=== PATIENT | female | born 1945 | race Caucasian/White ===

== ENCOUNTER → 2017-01-01 | Outpatient (CLI) | payer BC ==
[~2017-01-01] MED LIST: AMLO-110 PO; AMOX875T PO; ASPI81TA28 PO; BACL10TA PO; BIOT10TA2 PO; CARV3.122 PO; CHOL2000 PO; CLC6 PO; CLON0.5T3 PO; CMD/25 PO; CMD3 PO; CMD5 PO; COLC1TAB25 PO; CRFUDL PO; CRG3125 PO; DEXL60CA4 PO; DULO-24 PO; FLUC100T4 PO; GABA-113 PO; HYDR25TA4 PO; HYDR25TA5 PO; IBUP-1050 PO; KLN5X PO; LISI-792 PO; LISI20TA3 PO; LRS10 PO; LSN20 PO; LSN40 PO; LVNIS100 SQ; MCTP EXT; MELA1TAB4 PO; MELA3TAB PO; MIRT15TA PO; MTR600 PO; ONDA4TAB10 SL; PANT40TA PO; PRT/40 PO; RANI150T3 PO; ROSU20TA PO; ROSU20TA22 PO; TRAZ50TA35 PO; ULT50X PO; WARF-280 PO; WARF2TAB8 PO; WARF6TAB5 PO; ZNTT/150 PO; [UNRECOGNIZED DRUG - CODE] PO
== END | disposition home or self-care (01) ==
LOC: C.PAPS 14:10
PROVIDERS: ATTEND Obstetrics & Gynecology
DX: Z12.4 Encounter for screening for malignant neoplasm of cervix (principal)

== ENCOUNTER → 2017-02-04 | Outpatient (CLI) | payer BC ==
[~2017-02-04] MED LIST changes: +CRFL PO; +IBUP-1459 PO; +LISI40TA PO; +NRV/5 PO; +PANT40TA2 PO; -PRT/40 PO; +TRAM-10 PO; +WARF-285 PO
[2017-02-04 17:27] LABS: BASO % 0.7 %; BASO ABS # 0.05 K/uL (0-0.2); COMPLETE YES; EOS % 3.5 %; HEMATOCRIT 38.2 % (37-47); IG% 0.3 %; LYMPH % 27.5 %; LYMPH ABS # 2.07 K/uL (1.2-3.4); MEAN CELL VOLUME 89.5 fL (80-100); MEAN CORPUSCULAR HEMOGLOBIN 29.3 pg (25-34); MEAN CORPUSCULAR HGB CONC 32.7 g/dl (32-36); MEAN PLATELET VOLUME 10.2 fL (7.4-10.4); MONO % 8.4 %; NEUT % 59.6 %; PLATELET COUNT 292 K/uL (130-400); RED BLOOD COUNT 4.27 M/uL (4.2-5.4); WHITE BLOOD COUNT 7.53 K/uL (4.8-10.8)
[2017-02-04 17:41] LABS: AST/SGOT 12 U/L (15-37); BLOOD UREA NITROGEN 27 mg/dl (7-18); BUN/CREATININE RATIO 27.4 (10-20); CALCIUM 8.9 mg/dl (8.5-10.1); CARBON DIOXIDE 27 mmol/L (21-32); CHLORIDE 107 mmol/L (98-107); CREATININE 0.97 mg/dl (0.60-1.20); GLUCOSE 92 mg/dl (70-99); POTASSIUM 3.5 mmol/L (3.5-5.1); SODIUM 143 mmol/L (136-145)
[2017-02-04 17:52] LABS: ALB/GLOB RATIO 0.8 (0.9-2); ALKALINE PHOSPHATASE 84 U/L (45-117); ALT/SGPT 19 U/L (12-78); CHOLESTEROL 183 mg/dl (0-200); CHOLESTEROL/HDL RATIO 2.9; HDL CHOLESTEROL 64 mg/dl; LDL CHOLESTEROL CALCULATED 96 mg/dl; TRIGLYCERIDES 116 mg/dl (0-150); VERY LOW DENSITY LIPOPROT CALC 23 mg/dl
[2017-02-05 07:21] LABS: ESTIMATED AVERAGE GLUCOSE 134 mg/dl; HA1C FLAG Normal (Normal)
== END | disposition home or self-care (01) ==
LOC: C.LABBFT 11:34
PROVIDERS: ATTEND Physician Assistant Medical
DX: E78.5 Hyperlipidemia, unspecified (principal); I10 Essential (primary) hypertension; R73.01 Impaired fasting glucose

== ENCOUNTER 2017-02-18 14:19 | Emergency (ER) | payer BC ==
[~2017-02-18] VITALS: Ht 160 cm; Wt 104.0 kg
[~2017-02-18 14:19] MED LIST changes: -AMLO-110 PO; -AMOX875T PO; -ASPI81TA28 PO; -BIOT10TA2 PO; -CHOL2000 PO; -CLC6 PO; -CMD/25 PO; -CMD3 PO; -CMD5 PO; -COLC1TAB25 PO; -CRFL PO; -CRFUDL PO; -CRG3125 PO; -FLUC100T4 PO; -HYDR25TA5 PO; -IBUP-1050 PO; -IBUP-1459 PO; -KLN5X PO; -LISI20TA3 PO; -LISI40TA PO; -LRS10 PO; -LSN20 PO; -LSN40 PO; -LVNIS100 SQ; -MCTP EXT; -MELA3TAB PO; -MIRT15TA PO; -MTR600 PO; -NRV/5 PO; -ONDA4TAB10 SL; -PANT40TA PO; -PANT40TA2 PO; -RANI150T3 PO; -ROSU20TA22 PO; -TRAM-10 PO; -TRAZ50TA35 PO; -ULT50X PO; -WARF-280 PO; -WARF-285 PO; -WARF2TAB8 PO; -WARF6TAB5 PO; -[UNRECOGNIZED DRUG - CODE] PO
[2017-02-18 14:27] VITALS: TEMP 36.9; Ht 160 cm; Wt 104.0 kg
[2017-02-18] MEDS ORDERED: SODIUM CHLORIDE 0.9% 1000ML 500 ML IV STA (14:54)
[2017-02-18] MEDS ORDERED: ONDANSETRON INJ 2 MG/ML 2 ML VIAL IV STA (14:54)
--- NOTE | 2017-02-18 14:59 | EMERGENCY ROOM VISIT NOTE ---
History Report prepared by Tristen: Rosalina Fuentes Under the Supervision of: Dr. González Stanford M.D. First contact with patient: 14:49 Chief Complaint: ABDOMINAL PAIN Stated Complaint: PAIN ON LEFT SIDE OF BELLY Nursing Triage Summary: pt to the ED with c/o abd pain left sided since friday History of Present Illness The patient is a 71 year old female who presents to the Emergency Room with complaints of intermittent left upper quadrant abdominal pain that began Friday (4 days ago). She currently rates her discomfort as an 8/10 in severity, but notes that it can be up to a 10/10 in severity. The patient states that her pain started on Friday, but worsened Friday morning. She states that her pain continued to worsen, but then began to ease up. The patient denies the pain radiating to her back. She denies any nausea, vomiting , chills, fever, urinary symptoms, diarrhea, or constipation. The patient denies ever having pain like this in the past. She notes that she has had a recent cough and increased shortness of breath. The patient denies any history of kidney stones. She notes a surgical history of a cholecystectomy and a history of diverticulosis. Source of History: patient Onset: Friday Position: abdomen (LUQ) Symptom Intensity: 8/10 Timing: intermittent Associated Symptoms: + SOB, + cough, No back pain, No chills, No diarrhea, No fevers, No nausea, No urinary symptoms, No vomiting Review of Systems See HPI for pertinent positives & negatives. A total of 10 systems reviewed and were otherwise negative. Past Medical & Surgical Medical Problems: (1) back surgery (2) Barretts esophagus (3) Endocervical polyp (4) Hypertension (5) Patellar tendonitis (6) Post-menopause bleeding Family History Diabetes mellitus FH: cancer FH: heart disease FH: lung disease Gallbladder disease Hypertension Kidney disease Kidney stones Social History Smoking Status: Never Smoker Alcohol Use: none Drug Use: none Marital Status: Housing Status: lives with family Occupation Status: retired Current/Historical Medications Scheduled Amoxicillin & Pot Clavulanate (Augmentin 875-125 mg), 875 MG PO BID Aspirin (Aspirin Ec), 81 MG PO QAM Baclofen (Lioresal), 10 MG PO QAM Carvedilol (Coreg), 3.125 MG PO BID Clonazepam (Klonopin), 0.5 MG PO HS Hydrochlorothiazide (Hctz), 25 MG PO QAM Lisinopril (Zestril), 20 MG PO QAM Melatonin (Melatonin), 1 MG PO HS Pantoprazole (Pantoprazole Sodium), 40 MG PO DAILY Ranitidine (Zantac), 150 MG PO BID Rosuvastatin Calcium (Crestor), 20 MG PO QPM Scheduled PRN Clonazepam (Klonopin), 0.25 MG PO QAM PRN for RN Allergies Coded Allergies: Niacin (Verified Allergy, Intermediate, RASH, 02/18/17) Atorvastatin (Verified Allergy, Unknown, MUSCLE ACHES, 02/18/17) Diltiazem (Verified Allergy, Unknown, HEADACHE, 02/18/17) Physical Exam Vital Signs Date Time Temp Pulse Resp B/P Pulse Ox O2 Delivery O2 Flow Rate FiO2 02/18/17 18:25 72 18 132/64 95 Room Air 02/18/17 15:43 74 111/54 96 Room Air 02/18/17 14:27 36.9 91 16 146/98 98 Room Air Physical Exam GENERAL: Patient is in no acute distress. HEENT: No acute trauma, normocephalic atraumatic, mucous membranes moist, no nasal congestion, no scleral icterus. NECK: No stridor, no adenopathy, no meningismus, trachea is midline. LUNGS: Clear to auscultation bilaterally, no wheeze, no rhonchi, breath sounds equal. HEART: 4/6 systolic murmur with a regular rate and rhythm. ABDOMEN: Moderately tender to the mid left abdomen. Soft, bowel sounds positive , no hernias, no peritonitis. EXTREMITIES: No cyanosis or edema, full range of motion of all the joints without pain or difficulty, no signs for acute trauma. NEUROLOGIC: Oriented x 3, no acute motor or sensory deficits, no focal weakness. SKIN: No rash, no jaundice, no diaphoresis. Medical Decision & Procedures ER Provider Diagnostic Interpretation: X ray results and stated below per my interpretation and radiologist interpretation. Other radiology results and stated below per my review and radiologist interpretation: CHEST ONE VIEW PORTABLE CLINICAL HISTORY: Left-sided abdominal pain COMPARISON STUDY: 02/17/2015 FINDINGS: The cardiac and sternal contours remain stable. There is no failure. There is no focal pulmonary consolidation. There are no pleural effusions. There is a linear atelectasis/scarring at the left lung base. There is no free intraperitoneal air.[ IMPRESSION: No active disease in the chest. Electronically signed by: Noel Mcintosh M.D. 02/18/2017 3:36 PM Dictated Date/Time: 02/18/2017 3:[address] SCAN OF THE ABDOMEN AND PELVIS WITH IV CONTRAST CLINICAL HISTORY: Left lower quadrant abdominal pain. COMPARISON STUDY: Abdominal CT dated 06/22/2015. TECHNIQUE: Following the IV administration of 92 cc of Optiray 320, CT scan of the abdomen and pelvis is performed from the lung bases to the proximal femora. Images are reviewed in the axial, sagittal, and coronal planes. IV contrast was administered without complication. Automated dose control exposure was utilized. The examination is degraded by large body habitus, and by streak artifact from the body wall abutting the CT gantry. CT DOSE: 1302.11 mGy.cm FINDINGS: Lung bases: The heart is normal in size and without pericardial effusion. The coronary arteries, aortic valve leaflets, and mitral annulus are calcified. Linear atelectasis is present at both lung bases. No airspace consolidation typical for pneumonia or pleural effusion is identified. A small calcified granuloma is present in the right middle lobe. A fat-containing Bochdalek hernia is seen at the right lung base. A small hiatal hernia is noted. Liver: The contrast-enhanced liver is normal in size, contour, and attenuation. There is [id number] central intrahepatic biliary ductal dilatation, likely related to previous cholecystectomy. The hepatic veins and portal veins are patent. Gallbladder: Surgically absent. Spleen: Normal in size and attenuation. Pancreas: Moderately atrophic and grossly unremarkable. Adrenal glands: Unremarkable. Kidneys: The contrast enhanced kidneys demonstrate mild cortical atrophy and are without hydronephrosis. The kidneys enhance symmetrically. Abdominal vasculature: The abdominal aorta is normal in course and caliber noting mild to moderate atherosclerotic calcification. Bowel: The small bowel and colon are normal in course and caliber. There is a small duodenal diverticulum. There is moderate diverticulosis of the left colon. There is mild colonic wall thickening with pericolonic inflammation and trace fluid seen involving the distal descending colon on axial image #305. The appearance is consistent with acute diverticulitis. There is no evidence of diverticular abscess. The appendix is not identified. Peritoneum: There is no intraperitoneal free air or abdominal ascites. Lymphadenopathy: None. Pelvic viscera: The bladder, uterus, and adnexa are normal as imaged. Skeletal structures: The skeletal structures are osteopenic. There is mild lumbosacral spondylosis. Sclerotic change is noted in the sacroiliac joints. No lytic or blastic lesions are seen. IMPRESSION: Findings are consistent with mild acute diverticulitis involving the distal descending colon. There is no CT evidence of abscess or intraperitoneal free air. Electronically signed by: González Ross M.D. 02/18/2017 5:37 PM Dictated Date/Time: 02/18/2017 5:31 PM Laboratory Results 02/18/17 15:00 Red Blood Count 4.51, Mean Corpuscular Volume 91.1, Mean Corpuscular Hemoglobin 29.5, Mean Corpuscular Hemoglobin Concent 32.4, Mean Platelet Volume 9.5, Neutrophils (%) (Auto) 67.6, Lymphocytes (%) (Auto) 18.6, Monocytes (%) (Auto) 10.7, Eosinophils (%) (Auto) 2.6, Basophils (%) (Auto) 0.3, Neutrophils # (Auto ) 6.78, Lymphocytes # (Auto) 1.86, Monocytes # (Auto) 1.07, Eosinophils # (Auto ) 0.26, Basophils # (Auto) 0.03 02/18/17 15:00 Test 02/18/17 15:00 02/18/17 15:44 White Blood Count 10.02 K/uL (4.8-10.8) Red Blood Count 4.51 M/uL (4.2-5.4) Hemoglobin 13.3 g/dL (12.0-16.0) Hematocrit 41.1 % (37-47) Mean Corpuscular Volume 91.1 fL (80-100) Mean Corpuscular Hemoglobin 29.5 pg (25-34) Mean Corpuscular Hemoglobin Concent 32.4 g/dl (32-36) Platelet Count 249 K/uL (130-400) Mean Platelet Volume 9.5 fL (7.4-10.4) Neutrophils (%) (Auto) 67.6 % Lymphocytes (%) (Auto) 18.6 % Monocytes (%) (Auto) 10.7 % Eosinophils (%) (Auto) 2.6 % Basophils (%) (Auto) 0.3 % Neutrophils # (Auto) 6.78 K/uL (1.4-6.5) Lymphocytes # (Auto) 1.86 K/uL (1.2-3.4) Monocytes # (Auto) 1.07 K/uL (0.11-0.59) Eosinophils # (Auto) 0.26 K/uL (0-0.5) Basophils # (Auto) 0.03 K/uL (0-0.2) RDW Standard Deviation 45.1 fL (36.4-46.3) RDW Coefficient of Variation 13.6 % (11.5-14.5) Immature Granulocyte % (Auto) 0.2 % Immature Granulocyte # (Auto) 0.02 K/uL (0.00-0.02) Anion Gap 6.0 mmol/L (3-11) Est Creatinine Clear Calc Drug Dose 63.5 ml/min Estimated GFR () 70.3 Estimated GFR (Non- 60.7 BUN/Creatinine Ratio 18.5 (10-20) Calcium Level 9.4 mg/dl (8.5-10.1) Total Bilirubin 0.5 mg/dl (0.2-1) Aspartate Amino Transf (AST/SGOT) 13 U/L (15-37) Alanine Aminotransferase (ALT/SGPT) 18 U/L (12-78) Alkaline Phosphatase 117 U/L (45-117) Total Protein 8.6 gm/dl (6.4-8.2) Albumin 3.7 gm/dl (3.4-5.0) Globulin 4.9 gm/dl (2.5-4.0) Albumin/Globulin Ratio 0.8 (0.9-2) Lipase 166 U/L (73-393) Urine Color YELLOW Urine Appearance CLEAR (CLEAR) Urine pH 6.0 (4.5-7.5) Urine Specific Rayne 1.019 (1.000-1.030) Urine Protein NEG (NEG) Urine Glucose (UA) NEG (NEG) Urine Ketones NEG (NEG) Urine Occult Blood TRACE (NEG) Urine Nitrite NEG (NEG) Urine Bilirubin NEG (NEG) Urine Urobilinogen NEG (NEG) Urine Leukocyte Esterase TRACE (NEG) Urine WBC (Auto) 1-5 /hpf (0-5) Urine RBC (Auto) 5-10 /hpf (0-4) Urine Hyaline Casts (Auto) 0 /lpf (0-5) Urine Epithelial Cells (Auto) 5-10 /lpf (0-5) Urine Bacteria (Auto) NEG (NEG) Laboratory results reviewed by me. Medications Administered Medications (Trade) Dose Ordered Sig/Aurora Route Start Time Stop Time Status Last Admin Dose Admin Sodium Chloride (Nss 1000ml) 500 ml @ 999 mls/hr Q31M STAT IV 02/18/17 14:54 02/18/17 15:24 DC 02/18/17 15:39 999 MLS/HR Ondansetron HCl (Zofran Inj) 4 mg NOW STAT IV 02/18/17 14:54 02/18/17 14:57 DC 02/18/17 15:39 4 MG Morphine Sulfate (MoRPHine SULFATE INJ) 4 mg Q30M PRN IV 02/18/17 15:00 02/18/17 18:44 DC 02/18/17 15:40 4 MG Amoxicillin/ Clavulanate Potassium (Augmentin Tab) 875 mg ONE ONCE PO 02/18/17 18:15 02/18/17 18:16 DC 02/18/17 18:24 875 MG ED Course 1449: The patient was evaluated in room C5. A complete history and physical exam was performed. 1454: Ordered Zofran Inj 4 mg IV, Sodium Chloride 500 ml @ 999 mls/hr IV. 1500: Ordered Morphine Sulfate 4 mg IV. 1759: I reevaluated the patient and she is resting comfortably. I discussed the exam findings with her and I discussed the treatment plan. She verbalized complete understanding and agreement. She is ready to go home once she receives her antibiotics. 1815: Ordered Augmentin Tab 875 mg PO. Medical Decision The patient is a 71 year old female who presents to the ED with complaints of abdominal pain. Differential diagnoses considered include UTI, renal colic, pyelonephritis, abscess, diverticulitis, appendicitis, pancreatitis, hernia. There is no leukocytosis or concerning anemia. No significant electrolyte abnormality, kidney failure, hepatitis or pancreatitis. Urinalysis does not show evidence for infection. Chest x-ray shows no pneumonia, free air or mediastinal widening. Abdominal and pelvis CT does show a mild case of diverticulitis, there was no abscess, no acute surgical process seen. The patient received IV saline, IV Zofran, IV morphine. She received a dose of oral Augmentin. She feels improved. The patient has acute diverticulitis. She is stable for discharge on outpatient antibiotics. [id number] pain meds for pain control. Rest and hydration were encouraged. She can follow with her doctor for further workup if needed. She was encouraged to return here for worsening symptoms or lack of improvement. Impression Primary Impression: Acute diverticulitis Scribe Attestation The scribe's documentation has been prepared under my direction and personally reviewed by me in its entirety. I confirm that the note above accurately reflects all work, treatment, procedures, and medical decision making performed by me. Departure Information Dispostion Home / Self-Care Prescriptions Amoxicillin & Pot Clavulanate (Augmentin 875-125 mg) 1 Tab Tab 875 MG PO BID for 10 Days, #20 TAB Prov: González Stanford M.D. 02/18/17 Referrals Renzo Barker M.D. (PCP) Forms HOME CARE DOCUMENTATION FORM, IMPORTANT VISIT INFORMATION Patient Instructions My [facility] Additional Instructions augmentin 2x per day for 10 days motrin and or tylenol for pain bland diet see talon neff friday return for worsening symptoms or lack of improvement heat to the sore area may help
[2017-02-18] MEDS ORDERED: OPTIRAY 320 IV PRN (15:00)
[2017-02-18] MEDS ORDERED: MoRPHine SULFATE 4 MG/ML 1 ML CARP\\VIAL IV PRN (15:00)
[2017-02-18] MEDS ORDERED: PANT40TA2 PO (15:02)
[2017-02-18 15:18] LABS: BASO % 0.3 %; BASO ABS # 0.03 K/uL (0-0.2); COMPLETE YES; EOS % 2.6 %; HEMATOCRIT 41.1 % (37-47); IG% 0.2 %; LYMPH % 18.6 %; LYMPH ABS # 1.86 K/uL (1.2-3.4); MEAN CELL VOLUME 91.1 fL (80-100); MEAN CORPUSCULAR HEMOGLOBIN 29.5 pg (25-34); MEAN CORPUSCULAR HGB CONC 32.4 g/dl (32-36); MEAN PLATELET VOLUME 9.5 fL (7.4-10.4); MONO % 10.7 %; NEUT % 67.6 %; PLATELET COUNT 249 K/uL (130-400); RED BLOOD COUNT 4.51 M/uL (4.2-5.4); WHITE BLOOD COUNT 10.02 K/uL (4.8-10.8)
[2017-02-18 15:38] LABS: BUN/CREATININE RATIO 18.5 (10-20); CALCIUM 9.4 mg/dl (8.5-10.1); CREATININE 0.95 mg/dl (0.60-1.20); POTASSIUM 3.8 mmol/L (3.5-5.1)
--- NOTE | 2017-02-18 15:38 | DIAGNOSTIC IMAGING REPORT ---
CHEST ONE VIEW PORTABLE CLINICAL HISTORY: Left-sided abdominal pain COMPARISON STUDY: 02/17/2015 FINDINGS: The cardiac and sternal contours remain stable. There is no failure. There is no focal pulmonary consolidation. There are no pleural effusions. There is a linear atelectasis/scarring at the left lung base. There is no free intraperitoneal air.[ IMPRESSION: No active disease in the chest. Electronically signed by: Noel Mcintosh M.D. 02/18/2017 3:36 PM Dictated Date/Time: 02/18/2017 3:35 PM
[2017-02-18 15:45] LABS: ALB/GLOB RATIO 0.8 (0.9-2)
[2017-02-18 16:03] LABS: URINE APPEARANCE CLEAR (CLEAR); URINE BILIRUBIN NEG (NEG); URINE COLOR YELLOW; URINE NITRITE NEG (NEG); URINE SPECIFIC GRAVITY 1.019 (1.000-1.030); UROBILINOGEN NEG (NEG); ZZUR CULT IF INDIC CLEAN CATCH NO
[2017-02-18 16:12] LABS: MANUAL MICROSCOPIC REQUIRED? NO; REVIEW REQ? NO
--- NOTE | 2017-02-18 17:39 | DIAGNOSTIC IMAGING REPORT ---
CT SCAN OF THE ABDOMEN AND PELVIS WITH IV CONTRAST CLINICAL HISTORY: Left lower quadrant abdominal pain. COMPARISON STUDY: Abdominal CT dated 06/22/2015. TECHNIQUE: Following the IV administration of 92 cc of Optiray 320, CT scan of the abdomen and pelvis is performed from the lung bases to the proximal femora. Images are reviewed in the axial, sagittal, and coronal planes. IV contrast was administered without complication. Automated dose control exposure was utilized. The examination is degraded by large body habitus, and by streak artifact from the body wall abutting the CT gantry. CT DOSE: 1302.11 mGy.cm FINDINGS: Lung bases: The heart is normal in size and without pericardial effusion. The coronary arteries, aortic valve leaflets, and mitral annulus are calcified. Linear atelectasis is present at both lung bases. No airspace consolidation typical for pneumonia or pleural effusion is identified. A small calcified granuloma is present in the right middle lobe. A fat-containing Bochdalek hernia is seen at the right lung base. A small hiatal hernia is noted. Liver: The contrast-enhanced liver is normal in size, contour, and attenuation. There is [id number] central intrahepatic biliary ductal dilatation, likely related to previous cholecystectomy. The hepatic veins and portal veins are patent. Gallbladder: Surgically absent. Spleen: Normal in size and attenuation. Pancreas: Moderately atrophic and grossly unremarkable. Adrenal glands: Unremarkable. Kidneys: The contrast enhanced kidneys demonstrate mild cortical atrophy and are without hydronephrosis. The kidneys enhance symmetrically. Abdominal vasculature: The abdominal aorta is normal in course and caliber noting mild to moderate atherosclerotic calcification. Bowel: The small bowel and colon are normal in course and caliber. There is a small duodenal diverticulum. There is moderate diverticulosis of the left colon. There is mild colonic wall thickening with pericolonic inflammation and trace fluid seen involving the distal descending colon on axial image #305. The appearance is consistent with acute diverticulitis. There is no evidence of diverticular abscess. The appendix is not identified. Peritoneum: There is no intraperitoneal free air or abdominal ascites. Lymphadenopathy: None. Pelvic viscera: The bladder, uterus, and adnexa are normal as imaged. Skeletal structures: The skeletal structures are osteopenic. There is mild lumbosacral spondylosis. Sclerotic change is noted in the sacroiliac joints. No lytic or blastic lesions are seen. IMPRESSION: Findings are consistent with mild acute diverticulitis involving the distal descending colon. There is no CT evidence of abscess or intraperitoneal free air. Electronically signed by: González Ross M.D. 02/18/2017 5:37 PM Dictated Date/Time: 02/18/2017 5:31 PM
[2017-02-18] MEDS ORDERED: AMOX875T PO (18:09)
[2017-02-18] MEDS ORDERED: AMOXICILLIN/CLAVULANATE TAB 875 MG TAB PO ONE (18:15)
[2017-02-18 18:25] VITALS: BP 132/64; PULSE 72; O2SAT 95
[2017-03-27] MEDS ORDERED: [UNRECOGNIZED DRUG - CODE] PO (14:40)
[2017-03-27] MEDS ORDERED: BIOT10TA2 PO (14:40)
[2017-05-15] MEDS ORDERED: LVNIS100 SQ (10:50)
[2017-05-15] MEDS ORDERED: CMD5 PO (10:50)
[2017-05-30] MEDS ORDERED: IBUP-1050 PO (14:12)
[2017-05-30] MEDS ORDERED: CLC6 PO (14:12)
[2017-06-01] MEDS ORDERED: ASPI81TA28 PO (10:01)
[2017-06-01] MEDS ORDERED: CLON0.5T3 PO (11:51)
[2017-06-01] MEDS ORDERED: ROSU20TA22 PO (13:43)
[2017-06-01] MEDS ORDERED: CHOL2000 PO (14:40)
[2017-06-01] MEDS ORDERED: PANT40TA2 PO (22:13)
[2017-06-19] MEDS ORDERED: MTR600 PO (16:09)
[2017-06-19] MEDS ORDERED: CRFUDL PO (16:09)
[2017-06-19] MEDS ORDERED: LSN20 PO (16:09)
[2017-06-19] MEDS ORDERED: CMD3 PO (16:09)
[2017-06-19] MEDS ORDERED: MCTP EXT (16:09)
[2017-07-11] MEDS ORDERED: AMLO-110 PO (10:08)
[2017-07-11] MEDS ORDERED: ULT50X PO (10:08)
[2017-07-11] MEDS ORDERED: IBUP-1050 PO (10:08)
[2017-07-11] MEDS ORDERED: LSN40 PO (10:08)
== END 2017-02-18 18:35 | disposition home or self-care (01) ==
LOC: C.EDB 14:28 → C.EDC 18:35
DX: K57.92 Diverticulitis of intestine, part unspecified, without perforation or abscess without bleeding (principal); I10 Essential (primary) hypertension; K22.70 Barrett's esophagus without dysplasia; Z79.82 Long term (current) use of aspirin; Z79.899 Other long term (current) drug therapy; Z88.8 Allergy status to other drugs, medicaments and biological substances; Z83.3 Family history of diabetes mellitus; Z80.9 Family history of malignant neoplasm, unspecified; Z82.49 Family history of ischemic heart disease and other diseases of the circulatory system; Z83.79 Family history of other diseases of the digestive system; Z84.1 Family history of disorders of kidney and ureter

== ENCOUNTER → 2017-03-24 | Outpatient (CLI) | payer BC ==
[~2017-03-24] MED LIST changes: +AMLO-110 PO; +ASPI81TA28 PO; +BIOT10TA2 PO; +CHOL2000 PO; +CLC6 PO; +CMD/25 PO; +CMD3 PO; +CMD5 PO; +COLC1TAB25 PO; +CRFL PO; +CRFUDL PO; +CRG3125 PO; -DEXL60CA4 PO; -DULO-24 PO; +FLUC100T4 PO; -GABA-113 PO; +HYDR25TA5 PO; +IBUP-1050 PO; +IBUP-1459 PO; +KLN5X PO; +LISI20TA3 PO; +LISI40TA PO; +LRS10 PO; +LSN20 PO; +LSN40 PO; +LVNIS100 SQ; +MCTP EXT; +MELA3TAB PO; +MIRT15TA PO; +MTR600 PO; +NRV/5 PO; +ONDA4TAB10 SL; +PANT40TA PO; +PANT40TA2 PO; +RANI150T3 PO; +ROSU20TA22 PO; +TRAM-10 PO; +TRAZ50TA35 PO; +ULT50X PO; +WARF-280 PO; +WARF-285 PO; +WARF2TAB8 PO; +WARF6TAB5 PO; +[UNRECOGNIZED DRUG - CODE] PO
[2017-03-24 12:21] LABS: HEMATOCRIT 38.3 % (37-47); MEAN CELL VOLUME 91.8 fL (80-100); MEAN CORPUSCULAR HEMOGLOBIN 29.5 pg (25-34); MEAN CORPUSCULAR HGB CONC 32.1 g/dl (32-36); MEAN PLATELET VOLUME 10.2 fL (7.4-10.4); PLATELET COUNT 229 K/uL (130-400); RED BLOOD COUNT 4.17 M/uL (4.2-5.4); WHITE BLOOD COUNT 5.65 K/uL (4.8-10.8)
[2017-03-24 12:33] LABS: PROTHROMBIN TIME (PATIENT) 10.2 SECONDS (9.0-12.0)
[2017-03-24 12:38] LABS: BLOOD UREA NITROGEN 21 mg/dl (7-18); BUN/CREATININE RATIO 22.9 (10-20); CARBON DIOXIDE 28 mmol/L (21-32); CHLORIDE 108 mmol/L (98-107); GLUCOSE 102 mg/dl (70-99); SODIUM 142 mmol/L (136-145)
[2017-03-24 12:51] LABS: CALCIUM 9.3 mg/dl (8.5-10.1)
== END | disposition home or self-care (01) ==
LOC: C.LABBFT 09:57
PROVIDERS: ATTEND Internal Medicine Interventional Cardiology
DX: Z01.810 Encounter for preprocedural cardiovascular examination (principal)

== ENCOUNTER → 2017-03-28 | Day surgery (SDC) | payer BC ==
[~2017-03-28] VITALS: Ht 160 cm; Wt 105.0 kg
[~2017-03-28] MED LIST changes: +FENTANYL CITRATE INJ 50 MCG/1 ML 2 ML VIAL ONE; +HEPARIN SOD (PORCINE) 1000 UNIT/ML 10 ML VIAL ONE; -MELA1TAB4 PO; +MIDAZOLAM HCL 1 MG/ML 2ML VIAL ONE; +NITROGLYCERIN/D5W 100MCG/ML 20ML SYR ONE; +NiCARDipine HCL INJ 2.5 MG/ML 10 ML AMP ONE
[2017-03-28 09:45] VITALS: Ht 160 cm; Wt 105.0 kg
[2017-03-28 10:03] VITALS: BP 110/65; PULSE 68; TEMP 36.4; O2SAT 96
--- NOTE | 2017-03-28 11:49 | History & Physical Bridge Note ---
H&P Re-Evaluation Bridge Note: I have examined the patient, reviewed the History & Physical and in the interval since the performance of the History & Physical I have noted the following changes of clinical significance: No changes noted
--- NOTE | 2017-03-28 11:50 | Procedure Note ---
Pre-Mod Sedation Assessment General Date of Moderate Sedation: March 28, 2017. Vital Signs: Vital Signs Past 12 Hours Date Time Temp Pulse Resp B/P Pulse Ox O2 Delivery O2 Flow Rate FiO2 03/28/17 11:39 69 18 132/81 95 Room Air 03/28/17 10:03 36.4 68 16 110/65 96 Room Air Review Cardiovascular: regular rate, rhythm, no edema, + systolic murmur Abdomen: normal bowel sounds, non tender Lungs: chest non-tender, normal breath sounds Pre-Sedation Airway Assessment Oral Cavity: WNL Able to Visualize Vocal Cords: No Short Thick Neck: Yes Hx of Sleep Apnea: Yes Smoking Status: Former Smoker Mallampati Classification: Class III ASA Classification: Class II Procedure Planning Contraindications-for Mod Sed: None Yes Notes The planned sedation has been discussed with the patient and consent obtained. I have identified the patient, determined the appropriateness of sedation and have assessed the patient immediately prior to the procedure. All medicine(s) and interventions are by my order.
--- NOTE | 2017-03-28 11:51 | Procedure Note ---
Post-Mod Sedation Assessment General Date of Moderate Sedation March 28, 2017. Vital Signs: Vital Signs Past 12 Hours Date Time Temp Pulse Resp B/P Pulse Ox O2 Delivery O2 Flow Rate FiO2 03/28/17 11:39 69 18 132/81 95 Room Air 03/28/17 10:03 36.4 68 16 110/65 96 Room Air Review - Discharge Criteria Vital Signs Stable: Yes Alert/Oriented/Conversant: Yes Returned to Baseline Mental St: Yes Nausea Absent/Minimal: Yes Pain/Discomfort/Absent/Minimal: Yes Normal/Baseline Respirations: Yes Active Bleeding?: No Pt Received D/C Instructions: N/A Prescriptions Given: None Specific Proced. D/C Criteria Distal Pulses Present (Cardiac: Yes Groin site assessed-Card Cath: N/A Voided Prior To Discharge: N/A Discharged Patients Adult Escort/Transportation: Yes
[2017-03-28 11:55] LABS: ISTAT ARTERIAL BLOOD GAS HCO3 23 meq/L (19-24); ISTAT ARTERIAL BLOOD GAS HCO3 25 meq/L (19-24); ISTAT ARTERIAL BLOOD GAS PCO2 36 mmHg (35-46); ISTAT ARTERIAL BLOOD GAS PCO2 42 mmHg (35-46); ISTAT ARTERIAL BLOOD GAS PO2 34 mmHg (80-95); ISTAT ARTERIAL BLOOD GAS PO2 62 mmHg (80-95); ISTAT ARTERIAL BLOOD GAS pH 7.39 (7.35-7.45); ISTAT ARTERIAL BLOOD GAS pH 7.42 (7.35-7.45); ISTAT CARBON DIOXIDE 24 mEq/l (24-31); ISTAT CARBON DIOXIDE 27 mEq/l (24-31)
--- NOTE | 2017-03-28 12:05 | Cardiac Catheterization ---
Procedure Note Procedure Date March 28, 2017. Pre-Procedure Diagnosis Valvular Disease AUC Score 7 Post-Procedure Diagnosis Mild CAD, Normal Intracardiac Pressures Procedure(s) Performed Coronary Angiography, Right Heart Cath Transit Planning Manager Dr. Fuentes Cnc Wood Lathe Operator(s) Johnathan Estimated Blood Loss Medication(s) Fentanyl, Heparin, Nitroglycerin, Versed, Lidocaine 1% Summary of Findings Indication: Severe aortic stenosis Access: 6Fr Slender Right Radial Artery, 6Fr slender right antecubital vein Catheters: 6Fr Juan lal Findings: LM - Luminal irregularities LAD - Moderate caliber vessel, 20-30% stenosis in mid segment after take-off of 2nd diagonal, distal luminal irregularities. - moderate caliber 2nd diagonal with 20-30% ostial stenosis Circumflex - Large caliber vessel, luminal irregularities distally and in OM1 and OM2 RCA - Dominant, luminal irregularities. RA 9 RV 35/11 PA 37/19 (27) PCW 15 AoSat 92 PaSat 65 TCO/CI 5.5/2.7 ANANYA/CI 5.7/2.8 Arterial Closure: TR Band Summary: 1. Mild non-obstructive coronary artery disease 2. Normal cardiac output and left sided filling pressures. 3. Borderline PH Recommendations: Follow-up with CT surgery at [facility] for AVR evaluation. Hemodynamics Rest Ao: 151/81/110 Final Ao: 148/74/106 LV: -- Recommendations valve replacement Specimens None Radiation Exposure (mGy) 343 Contrast (mls) 60 Visipaque Fluids (cc crystalloids) 71 Drains None Anesthesia Moderate (start 11:10 - 11:39) Procedural Complication(s) None Disposition Nurseryman Assistant Holding/Recovery ACC Data Cardiac Status Clinical evaluation leading to the procedure CAD Presntation: Sx unlikely to be ischemic Anginal Classification: CCS II Heart Failure: No, NYHA Class: CCS I Cardiogenic Shock w/in 24Hrs: No Cardiac Arrest w/in 24Hrs: No Imaging studies past 6 months: Yes Stress studies past 6 months: No Standard Exercise Stress Test: No Stress Echocardiogram: No Stress Testing w/SPECT MPI: No Cardiac CTA: No Coronary Anatomy Dominant: Right Left Main (% Stenosis): Normal LAD (% Stenosis): Mid (20-30) D2 (% Stenosis): Ostial (20-30) Circumflex (% Stenosis): Normal RCA (% Stenosis): Normal Diagnostic Physician's Name: Renzo Fuentes MD Status: Elective Closure Device Percutaneous Entry Location: Radial Closure Device: Radial Band Recommendations: valve replacement Intraprocedure Events Significant Dissection: No Perforation: No
--- NOTE | 2017-03-28 12:10 | Discharge Instructions ---
Discharge Instructions Procedure Procedure Date: March 28, 2017. Reason for Visit: Dr Fuentes To Do Aortic Valve Replacement. Discharge Discharge Date: March 28, 2017. Discharge Diagnosis: Severe aortic stenosis Last Recorded Wt (Kilograms): 105 Anesthesia Post Anesthesia Instructions: If you have had General Anesthesia or IV Sedation: * Do not drive today. * Resume driving when surgeon permits. * Do not make important decisions or sign legal documents today. * Call surgeon for: 1. Temperature elevations greater than 101 degrees F. 2. Uncontrollable pain. 3. Excessive bleeding. 4. Persistent nausea and vomiting. 5. Medication intolerance (nausea, vomiting or rash). * For nausea and vomiting use only clear liquids such as: tea, soda, bouillon until nausea subsides, then gradually increase diet as tolerated. * If you have any concerns or questions, call your surgeon's office. If physician is unavailable and it is an emergency, call 911 or go to the nearest emergency room. Instructions Activity Recommendations: limitations as noted below Recommended Home Diet: resume previous diet Allergies: Coded Allergies: Niacin (Verified Allergy, Intermediate, RASH, 02/18/17) Atorvastatin (Verified Allergy, Unknown, MUSCLE ACHES, 02/18/17) Diltiazem (Verified Allergy, Unknown, HEADACHE, 02/18/17) Follow Up Additional Instructions: ACTIVITY RECOMMENDATIONS: It is common to feel weak and fatigue for a few days. * Do not drive or operate any motorized equipment for the next 2 days. * Limit stair usage (2 or 3 trips a day only) for the next 2 days. * Do not lift anything heavier than 10 pounds for the next three days. * Do not engage in vigorous exercise or any sports for the next five days. * You may shower the day after your procedure, but do not immerse the area for three days. Cleanse the site gently with soap and water. SPECIAL CARE INSTRUCTIONS: * You may replace the pressure dressing or band-aid the morning after the procedure. * After your procedure, it is normal to have a small bruise or small lump at the site. Examine your site daily for any change in the bruise or lump, redness, swelling, drainage or numbness. Notify your doctor if any change. BLEEDING: * If there is a small amount of bleeding at the site, lie down and apply firm pressure with a clean cloth for ten minutes. When the bleeding stops, lie quietly keeping the procedure limb straight for six hours. Notify your doctor as soon as possible. * If the bleeding does not stop after ten minutes or if there is a large amount of bleeding or spurting, call 911 immediately. Continue to lie down and hold firm pressure until help arrives. SKIN IRRITATION: * You may experience some redness and/or swelling in the area where radiation was administered. If any skin irritation occurs, please contact your family physician. FOLLOW UP VISIT: Keep any scheduled doctor appointments. Follow-up with: Follow up with cardiothoracic surgery at [facility] Recommendations: Call your doctor if: * Temperature above 101 degrees * Pain not relieved by pain medicine ordered * There is increased drainage or redness from any incision * You have any unanswered questions or concerns. Your Doctors Instructions noted above were prepared by provider Mayo Fuentes. Patient Signature Section: Patient Instructions Signature Page Lidya Madsen Patient (or Guardian) Signature/Date: I have read and understand the instructions given to me by my caregivers. Caregiver/RN/Doctor Signature/Date: The above-named patient and/or guardian has received patient instructions on this date. + Original Patient Signature Page (only) stays with chart. Please make copy for patient.
[2017-03-28 13:45] VITALS: BP 114/68; PULSE 64; O2SAT 95
== END | disposition home or self-care (01) ==
LOC: C.CATH 09:38
PROVIDERS: ATTEND Internal Medicine Interventional Cardiology
DX: I35.0 Nonrheumatic aortic (valve) stenosis (principal); I10 Essential (primary) hypertension; E78.5 Hyperlipidemia, unspecified; E66.9 Obesity, unspecified; Z86.711 Personal history of pulmonary embolism; M19.90 Unspecified osteoarthritis, unspecified site; K21.9 Gastro-esophageal reflux disease without esophagitis; F41.9 Anxiety disorder, unspecified; Z87.81 Personal history of (healed) traumatic fracture; Z85.42 Personal history of malignant neoplasm of other parts of uterus; E78.00 Pure hypercholesterolemia, unspecified; K76.0 Fatty (change of) liver, not elsewhere classified; K22.70 Barrett's esophagus without dysplasia

== ENCOUNTER → 2017-04-17 | Outpatient (CLI) | payer BC ==
[~2017-04-17] MED LIST changes: -BIOT10TA2 PO; -FENTANYL CITRATE INJ 50 MCG/1 ML 2 ML VIAL ONE; -HEPARIN SOD (PORCINE) 1000 UNIT/ML 10 ML VIAL ONE; -MIDAZOLAM HCL 1 MG/ML 2ML VIAL ONE; -NITROGLYCERIN/D5W 100MCG/ML 20ML SYR ONE; -NiCARDipine HCL INJ 2.5 MG/ML 10 ML AMP ONE; -ROSU20TA PO; -ZNTT/150 PO
--- NOTE | 2017-04-17 10:59 | DIAGNOSTIC IMAGING REPORT ---
CHEST 2 VIEWS ROUTINE CLINICAL HISTORY: R06.02 Shortness of breath dyspnea COMPARISON STUDY: 02/18/2017 FINDINGS: Interval development of right pleural effusion. Round atelectatic change left base. Focal subsegmental scarring right upper lung. Prior aortic valve replacement . IMPRESSION: 1. Small right pleural effusion with scattered atelectatic changes throughout both hemithoraces. Electronically signed by: Tim Siegel M.D. 04/17/2017 10:58 AM Dictated Date/Time: 04/17/2017 10:55 AM
== END | disposition home or self-care (01) ==
LOC: C.RAD 10:33
PROVIDERS: ATTEND Internal Medicine Interventional Cardiology
DX: R06.02 Shortness of breath (principal); J90 Pleural effusion, not elsewhere classified; R91.8 Other nonspecific abnormal finding of lung field

== ENCOUNTER 2017-05-11 13:23 | Inpatient (IN) | payer BC, OTHER ==
[~2017-05-11] VITALS: Ht 160 cm; Wt 102.1 kg
[~2017-05-11 13:23] MED LIST changes: -AMLO-110 PO; -ASPI81TA28 PO; -CHOL2000 PO; -CLC6 PO; -CMD/25 PO; -CMD3 PO; -CMD5 PO; -COLC1TAB25 PO; -CRFL PO; -CRFUDL PO; -CRG3125 PO; -FLUC100T4 PO; -HYDR25TA5 PO; -IBUP-1050 PO; -IBUP-1459 PO; -KLN5X PO; -LISI20TA3 PO; -LISI40TA PO; -LRS10 PO; -LSN20 PO; -LSN40 PO; -LVNIS100 SQ; -MCTP EXT; -MELA3TAB PO; -MIRT15TA PO; -MTR600 PO; -NRV/5 PO; -ONDA4TAB10 SL; -PANT40TA PO; -PANT40TA2 PO; +PRT/40 PO; -RANI150T3 PO; -ROSU20TA22 PO; -TRAM-10 PO; -TRAZ50TA35 PO; -ULT50X PO; -WARF-280 PO; -WARF-285 PO; -WARF2TAB8 PO; -WARF6TAB5 PO
[2017-05-11 13:50] LABS: HEMATOCRIT 32.8 % (37-47); MEAN CELL VOLUME 89.6 fL (80-100); MEAN CORPUSCULAR HEMOGLOBIN 28.7 pg (25-34); MEAN PLATELET VOLUME 8.7 fL (7.4-10.4); PLATELET COUNT 284 K/uL (130-400); RED BLOOD COUNT 3.66 M/uL (4.2-5.4)
--- NOTE | 2017-05-11 13:55 | DIAGNOSTIC IMAGING REPORT ---
SINGLE VIEW CHEST CLINICAL HISTORY: Fever. FINDINGS: An AP, portable, upright chest radiograph is compared to study dated 04/17/2017. Correlation is made with chest CT dated 10/11/2013. The examination is degraded by portable technique and patient rotation. The heart is top normal for projection and there is atherosclerotic calcification of the thoracic aorta. The pulmonary vasculature is noncongested. There is chronic elevation of the right hemidiaphragm. Airspace consolidation is noted at the right lung base. A small right pleural effusion is noted. Left lung is grossly clear. No pneumothorax is seen. The skeletal structures are osteopenic. The bony thorax is grossly intact. Degenerative change is noted in the thoracic spine. IMPRESSION: 1. There is airspace consolidation at the right lung base with a small right pleural effusion. Correlate clinically for evidence of pneumonia. Radiographic follow-up to resolution is recommended. 2. The left lung appears clear. Electronically signed by: González Ross M.D. 05/11/2017 1:54 PM Dictated Date/Time: 05/11/2017 1:52 PM
[2017-05-11 14:00] LABS: INR 1.1 (0.9-1.1); PARTIAL THROMBOPLASTIN RATIO 1.1; PROTHROMBIN TIME (PATIENT) 11.4 SECONDS (9.0-12.0)
[2017-05-11] MEDS ORDERED: OPTIRAY 320 IV PRN (14:00)
[2017-05-11 14:07] LABS: ALT/SGPT 15 U/L (12-78); AST/SGOT 10 U/L (15-37); BASO % 0.5 %; BASO ABS # 0.05 K/uL (0-0.2); BLOOD UREA NITROGEN 17 mg/dl (7-18); BUN/CREATININE RATIO 18.6 (10-20); CALCIUM 9.2 mg/dl (8.5-10.1); CARBON DIOXIDE 28 mmol/L (21-32); CHLORIDE 104 mmol/L (98-107); COMPLETE YES; CREATININE 0.89 mg/dl (0.60-1.20); EOS % 2.4 %; GLUCOSE 103 mg/dl (70-99); IG% 0.2 %; LYMPH % 13.5 %; LYMPH ABS # 1.42 K/uL (1.2-3.4); MONO % 10.9 %; NEUT % 72.5 %; POTASSIUM 3.3 mmol/L (3.5-5.1); SODIUM 139 mmol/L (136-145)
[2017-05-11 14:18] LABS: ALKALINE PHOSPHATASE 102 U/L (45-117)
--- NOTE | 2017-05-11 15:13 | DIAGNOSTIC IMAGING REPORT ---
CT ANGIOGRAM OF THE CHEST CLINICAL HISTORY: Fever. Reported history of recent thoracic surgery. COMPARISON STUDY: Chest x-ray dated 05/11/[address] dated 10/11/2013. TECHNIQUE: Following the IV administration of 93 cc of Optiray 320, CT angiogram of the chest was performed from the upper abdomen to the thoracic inlet utilizing the pulmonary embolus protocol. Images are reviewed in the axial, sagittal, and coronal planes. 3-D MIPS images are created and assessed. IV contrast was administered without complication. CT DOSE: 668.57 mGy.cm FINDINGS: Thyroid: Imaged portions of the thyroid gland are normal in size and attenuation. Thoracic aorta: There is mild atherosclerotic calcification of the thoracic aorta, which is normal in caliber and demonstrates standard 3-vessel arch anatomy. No dissection is seen. Pulmonary vasculature: The pulmonary trunk is normal in caliber. There are tiny segmental and subsegmental pulmonary emboli within branches of the left lower lobe pulmonary artery. The remaining pulmonary vessels are clear. Heart: The heart is top normal in size and there is trace pericardial effusion. There is evidence of aortic heart valve surgery. Dimension annulus is calcified. Lungs and pleural spaces: Evaluation of the lung parenchyma is degraded by respiratory motion artifact. There is elevation of the right hemidiaphragm. There is a moderate right pleural effusion with associated consolidation. The trachea and central airways are clear. Linear atelectasis versus scarring is seen at the right apex. Mediastinum: There is induration within the right ventral chest wall. There is a tiny fluid collection seen in the anterior mediastinum on axial image #167. This measures 2.7 x 2.4 cm is seen on image #168. Stranding is also seen throughout anterior mediastinum, also likely related to recent surgery. No mediastinal lymphadenopathy is seen. Sejal: Clear. Axillae: There is no axillary lymphadenopathy. Upper abdomen: There is a small to moderate hiatal hernia. Findings suggest previous cholecystectomy. Skeletal structures: The skeletal structures are osteopenic. Degenerative change and hyperkyphosis are noted in the thoracic spine. No lytic or blastic bony lesions are seen. There is a 4.0 cm lipoma within the left shoulder musculature seen on image #234. IMPRESSION: 1. There are tiny segmental and subsegmental pulmonary emboli within branches of the left lower lobe pulmonary artery. 2. The remaining pulmonary vessels are clear. 3. There is induration within the right ventral chest wall. There is a small fluid collection identified in the anterior mediastinum just deep to the cutaneous abnormality, and this likely represents a surgical port with a tiny postoperative seroma/hematoma. Mild stranding in the anterior mediastinum is also likely on a postoperative basis. Superimposed infection would be impossible to exclude and clinical correlation will be required. 4. Small pericardial effusion. 5. Moderate right pleural effusion with associated right basilar consolidation. This likely represents atelectasis. Correlate clinically for evidence of pneumonia. 6. Additional findings as above. Electronically signed by: González Ross M.D. 05/11/2017 3:12 PM Dictated Date/Time: 05/11/2017 3:03 PM
--- NOTE | 2017-05-11 15:46 | EMERGENCY ROOM VISIT NOTE ---
History Report prepared by Tristen: Leigh Delong Under the Supervision of: Dr. Sriram Herrera D.O. First contact with patient: 13:38 Chief Complaint: CHEST PAIN Stated Complaint: CHEST PAIN History of Present Illness The patient is a 72 year old female who presents to the Emergency Room with complaints of constant shortness of breath that started 11 hours ago, around 0330. When she woke, she was experiencing midsternal chest pain along with shortness of breath. She states that she feels like something keeps her from being able to get a breath. The pain does not radiate. She is also experiencing intermittent pedal edema but she denies any lower extremity pain. The patient had her aortic valve replaced with a bovine valve 1 month ago at [place]. The patient states that she has been using her spirometer at home like she was told to. The patient has a history of pulmonary emboli and she is not on any blood thinners currently. Source of History: patient Onset: 11 hours ago, around 0330 Position: chest Quality: other (shortness of breath) Timing: constant Associated Symptoms: + chest pain Note: pedal edema, no lower extremity pain Review of Systems See HPI for pertinent positives & negatives. A total of 10 systems reviewed and were otherwise negative. Past Medical & Surgical Medical Problems: (1) back surgery (2) Barretts esophagus (3) Endocervical polyp (4) Hypertension (5) Patellar tendonitis (6) Post-menopause bleeding Family History Diabetes mellitus FH: cancer FH: heart disease FH: lung disease Gallbladder disease Hypertension Kidney disease Kidney stones Social History Smoking Status: Never Smoker Alcohol Use: none Drug Use: none Marital Status: Housing Status: lives with family Occupation Status: retired Current/Historical Medications Scheduled Aspirin (Aspirin Ec), 81 MG PO QAM Baclofen (Lioresal), 10 MG PO BID Carvedilol (Coreg), 3.125 MG PO BID Cholecalciferol (Vitamin D3), 1 CAP PO DAILY Hydrochlorothiazide (Hctz), 25 MG PO QAM Lisinopril (Zestril), 20 MG PO QAM Melatonin (Meladox), 0.5 TAB PO HS Rosuvastatin Calcium (Rosuvastatin Calcium), 20 MG PO HS Scheduled PRN Clonazepam (Klonopin), 0.5 MG PO HS PRN for Anxiety/Agitation Clonazepam (Klonopin), 0.5 MG PO QAM PRN for Anxiety/Agitation Allergies Coded Allergies: Niacin (Verified Allergy, Intermediate, RASH, 05/11/17) Atorvastatin (Verified Allergy, Unknown, MUSCLE ACHES, 05/11/17) Diltiazem (Verified Allergy, Unknown, HEADACHE, 05/11/17) Physical Exam Vital Signs Date Time Temp Pulse Resp B/P (MAP) Pulse Ox O2 Delivery O2 Flow Rate FiO2 05/11/17 15:26 97 30 141/84 93 Room Air 05/11/17 15:18 91 05/11/17 13:43 95 Room Air 05/11/17 13:42 95 Room Air 05/11/17 13:40 95 Room Air 05/11/17 13:27 36.4 98 22 94 Room Air Physical Exam CONSTITUTIONAL/VITAL SIGNS: Reviewed / noted above. GENERAL: Non-toxic in appearance. INTEGUMENTARY: Warm, dry, and [place]. HEAD: Normocephalic. EYES: without scleral icterus or trauma. ENT/OROPHARYNX: clear and moist. LYMPHADENOPATHY/NECK: Is supple without lymphadenopathy or meningismus. RESPIRATORY: Decreased breath sounds right base. CARDIOVASCULAR: Regular rate and rhythm. GI/ABDOMEN: Soft and nontender. No organomegaly or pulsatile mass. No rebound or guarding. Normal bowel sounds. EXTREMITIES: Warm and well perfused. BACK: No CVA tenderness. NEUROLOGICAL: Intact without focal deficits. PSYCHIATRIC: normal affect. MUSCULOSKELETAL: Normally developed with good muscle tone. Medical Decision & Procedures ER Provider Diagnostic Interpretation: Radiology results as stated below per my review and radiologist interpretation: SINGLE VIEW CHEST FINDINGS: An AP, portable, upright chest radiograph is compared to study dated 04/17/2017. Correlation is made with chest CT dated 10/11/2013. The examination is degraded by portable technique and patient rotation. The heart is top normal for projection and there is atherosclerotic calcification of the thoracic aorta. The pulmonary vasculature is noncongested. There is chronic elevation of the right hemidiaphragm. Airspace consolidation is noted at the right lung base. A small right pleural effusion is noted. Left lung is grossly clear. No pneumothorax is seen. The skeletal structures are osteopenic. The bony thorax is grossly intact. Degenerative change is noted in the thoracic spine. IMPRESSION: 1. There is airspace consolidation at the right lung base with a small right pleural effusion. Correlate clinically for evidence of pneumonia. Radiographic follow-up to resolution is recommended. 2. The left lung appears clear. Electronically signed by: González Ross M.D. 05/11/2017 1:54 PM Dictated Date/Time: 05/11/2017 1:[address] ANGIOGRAM OF THE CHEST FINDINGS: Thyroid: Imaged portions of the thyroid gland are normal in size and attenuation. Thoracic aorta: There is mild atherosclerotic calcification of the thoracic aorta, which is normal in caliber and demonstrates standard 3-vessel arch anatomy. No dissection is seen. Pulmonary vasculature: The pulmonary trunk is normal in caliber. There are tiny segmental and subsegmental pulmonary emboli within branches of the left lower lobe pulmonary artery. The remaining pulmonary vessels are clear. Heart: The heart is top normal in size and there is trace pericardial effusion. There is evidence of aortic heart valve surgery. Dimension annulus is calcified. Lungs and pleural spaces: Evaluation of the lung parenchyma is degraded by respiratory motion artifact. There is elevation of the right hemidiaphragm. There is a moderate right pleural effusion with associated consolidation. The trachea and central airways are clear. Linear atelectasis versus scarring is seen at the right apex. Mediastinum: There is induration within the right ventral chest wall. There is a tiny fluid collection seen in the anterior mediastinum on axial image #167. This measures 2.7 x 2.4 cm is seen on image #168. Stranding is also seen throughout anterior mediastinum, also likely related to recent surgery. No mediastinal lymphadenopathy is seen. Sejal: Clear. Axillae: There is no axillary lymphadenopathy. Upper abdomen: There is a small to moderate hiatal hernia. Findings suggest previous cholecystectomy. Skeletal structures: The skeletal structures are osteopenic. Degenerative change and hyperkyphosis are noted in the thoracic spine. No lytic or blastic bony lesions are seen. There is a 4.0 cm lipoma within the left shoulder musculature seen on image #234. IMPRESSION: 1. There are tiny segmental and subsegmental pulmonary emboli within branches of the left lower lobe pulmonary artery. 2. The remaining pulmonary vessels are clear. 3. There is induration within the right ventral chest wall. There is a small fluid collection identified in the anterior mediastinum just deep to the cutaneous abnormality, and this likely represents a surgical port with a tiny postoperative seroma/hematoma. Mild stranding in the anterior mediastinum is also likely on a postoperative basis. Superimposed infection would be impossible to exclude and clinical correlation will be required. 4. Small pericardial effusion. 5. Moderate right pleural effusion with associated right basilar consolidation. This likely represents atelectasis. Correlate clinically for evidence of pneumonia. 6. Additional findings as above. Electronically signed by: González Ross M.D. 05/11/2017 3:12 PM Dictated Date/Time: 05/11/2017 3:03 PM Laboratory Results 05/11/17 13:38 Red Blood Count 3.66, Mean Corpuscular Volume 89.6, Mean Corpuscular Hemoglobin 28.7, Mean Corpuscular Hemoglobin Concent 32.0, Mean Platelet Volume 8.7, Neutrophils (%) (Auto) 72.5, Lymphocytes (%) (Auto) 13.5, Monocytes (%) (Auto) 10.9, Eosinophils (%) (Auto) 2.4, Basophils (%) (Auto) 0.5, Neutrophils # (Auto ) 7.62, Lymphocytes # (Auto) 1.42, Monocytes # (Auto) 1.14, Eosinophils # (Auto ) 0.25, Basophils # (Auto) 0.05 05/11/17 13:38 Test 05/11/17 13:38 White Blood Count 10.50 K/uL (4.8-10.8) Red Blood Count 3.66 M/uL (4.2-5.4) Hemoglobin 10.5 g/dL (12.0-16.0) Hematocrit 32.8 % (37-47) Mean Corpuscular Volume 89.6 fL (80-100) Mean Corpuscular Hemoglobin 28.7 pg (25-34) Mean Corpuscular Hemoglobin Concent 32.0 g/dl (32-36) Platelet Count 284 K/uL (130-400) Mean Platelet Volume 8.7 fL (7.4-10.4) Neutrophils (%) (Auto) 72.5 % Lymphocytes (%) (Auto) 13.5 % Monocytes (%) (Auto) 10.9 % Eosinophils (%) (Auto) 2.4 % Basophils (%) (Auto) 0.5 % Neutrophils # (Auto) 7.62 K/uL (1.4-6.5) Lymphocytes # (Auto) 1.42 K/uL (1.2-3.4) Monocytes # (Auto) 1.14 K/uL (0.11-0.59) Eosinophils # (Auto) 0.25 K/uL (0-0.5) Basophils # (Auto) 0.05 K/uL (0-0.2) RDW Standard Deviation 48.5 fL (36.4-46.3) RDW Coefficient of Variation 14.7 % (11.5-14.5) Immature Granulocyte % (Auto) 0.2 % Immature Granulocyte # (Auto) 0.02 K/uL (0.00-0.02) Prothrombin Time 11.4 SECONDS (9.0-12.0) Prothromb Time International Ratio 1.1 (0.9-1.1) Activated Partial Thromboplast Time 27.9 SECONDS (21.0-31.0) Partial Thromboplastin Ratio 1.1 Anion Gap 7.0 mmol/L (3-11) Est Creatinine Clear Calc Drug Dose 65.4 ml/min Estimated GFR () 75.6 Estimated GFR (Non- 65.2 BUN/Creatinine Ratio 18.6 (10-20) Calcium Level 9.2 mg/dl (8.5-10.1) Total Bilirubin 0.4 mg/dl (0.2-1) Direct Bilirubin 0.1 mg/dl (0-0.2) Aspartate Amino Transf (AST/SGOT) 10 U/L (15-37) Alanine Aminotransferase (ALT/SGPT) 15 U/L (12-78) Alkaline Phosphatase 102 U/L (45-117) Total Creatine Kinase 22 U/L (26-192) Creatine Kinase MB < 0.5 ng/ml (0.5-3.6) Creatine Kinase MB Ratio (0-3.0) Troponin I < 0.015 ng/ml (0-0.045) Total Protein 7.7 gm/dl (6.4-8.2) Albumin 3.1 gm/dl (3.4-5.0) Lipase 158 U/L (73-393) Thyroid Stimulating Hormone (TSH) 1.530 uIu/ml (0.300-4.500) Laboratory results as stated above per my review. ECG Indication: chest pain, SOB/dyspnea Rate (beats per minute): 98 Rhythm: normal sinus Findings: RBBB, no acute ischemic change, no ectopy Comparison ECG Date: 02/17/2015 Change: no significant change ED Course 1346: Previous medical records were reviewed. The patient was evaluated in room B10. A complete history and physical examination was performed. 1522: Ordered Heparin Sodium/Dextrose 1 ea IV 1525: On reevaluation, the patient is resting comfortably. I discussed the results and findings with her. She verbalized agreement of the treatment plan. The patient will be evaluated for further management and care. 1535: Discussed the patient's case with Dr. Guerrero ESPAÑA. The patient will be evaluated for further treatment and disposition. Medical Decision Differentials considered include acute myocardial infarction, acute coronary syndrome, myocarditis, pericarditis, pericardial effusions /tamponade, esophageal perforation, pulmonary embolism, pneumonia, pneumothorax, cardiomyopathy, congestive heart, anemia, and COPD/asthma exacerbation. Medication Reconciliation: I attest that I have personally reviewed the patient' s current medication list. Patient was found to have a slightly elevated blood pressure due to circumstances. I do not believe that the patient requires hypertension monitoring. This is a 72-year-old female who presents to the ED with a chief complaint of some dyspnea. The patient states on April 11 she had her aortic valve replaced. At around 3:30 AM today the patient developed shortness of breath. She states that is hard to get a good breath. She has some discomfort related to her surgery but denies any additional discomfort. Her physical exam reveals a healing wound in the right anterior chest wall. The lungs revealed diminished breath sounds on the right. Chest x-ray reveals a right pleural effusion. A CT scan of the chest reveals tiny left lower lobe subsegmental PEs. The patient 's EKG shows a sinus rhythm with a chronic right bundle branch block. The patient was started on IV heparin. Patient will be seen by the hospitalist for further inpatient evaluation care. The patient was hemodynamically stable during her ED stay. She was started on IV heparin. Consults Time Called: 1523 Consulting Physician: Dr. Guerrero ESPAÑA Returned Call: 1535 Discussed the patient's case with Dr. Guerrero ESPAÑA. The patient will be evaluated for further treatment and disposition. Impression Primary Impression: Pulmonary emboli Additional Impression: Shortness of breath Scribe Attestation The scribe's documentation has been prepared under my direction and personally reviewed by me in its entirety. I confirm that the note above accurately reflects all work, treatment, procedures, and medical decision making performed by me. Departure Information Dispostion Being Evaluated By Hospitalist Referrals Renzo Barker M.D. (PCP) Patient Instructions My [facility] Problem Qualifiers Primary Impression: Pulmonary emboli Pulmonary embolism type: other Chronicity: unspecified
[2017-05-11] MEDS ORDERED: HEPARIN SOD 5000 UNIT/0.5 ML CARP ONE (16:06)
[2017-05-11] MEDS ORDERED: HEPARIN 25000 UNIT/500 ML D5W ONE (16:06)
[2017-05-11 16:15] VITALS: O2SAT 94; BMI 39.1
[2017-05-11] MEDS ORDERED: ONDANSETRON INJ 2 MG/ML 2 ML VIAL IV PRN ×2 (16:15)
[2017-05-11] MEDS ORDERED: NITROGLYCERIN 0.4 MG SL PER TAB CHARGE SL PRN (16:15)
[2017-05-11] MEDS ORDERED: ZOLPIDEM TARTRATE 5 MG TAB PO PRN (16:15)
[2017-05-11 16:29] LABS: MANUAL MICROSCOPIC REQUIRED? NO; REVIEW REQ? NO; URINE APPEARANCE CLEAR (CLEAR); URINE BILIRUBIN NEG (NEG); URINE COLOR YELLOW; URINE NITRITE NEG (NEG); URINE SPECIFIC GRAVITY 1.029 (1.000-1.030); UROBILINOGEN NEG (NEG)
[2017-05-11] MEDS ORDERED: PIPERACILL/TAZOBAC IV 4.5 GM in DEXTROSE 5% 100ML IV STA (16:32)
[2017-05-11] MEDS ORDERED: VANCOMYCIN INJ 2,200 MG in SODIUM CHLORIDE 0.9% 500ML 500 ML IV STA (16:36)
[2017-05-11] MEDS ORDERED: VANCOMYCIN CONSULT ACTIVE PRN (16:45)
[2017-05-11] MEDS ORDERED: PIPERACILL/TAZOBAC CONSULT ACTIVE PRN (16:45)
[2017-05-11] MEDS ORDERED: LEVALBUTEROL 1.25MG/0.5ML NEB INH PRN (17:15)
[2017-05-11] MEDS ORDERED: IPRATROPIUM BROMIDE NEB SOLN 0.02% 2.5 ML VIAL INH PRN (17:15)
--- NOTE | 2017-05-11 17:56 | History and Physical ---
History & Physical Date & Time of Service: May 11, 2017 at 17:40 Chief Complaint: Chest Pain Primary Care Physician: Renzo Barker M.D. History of Present Illness Source: patient, family The patient is a 72-year-old female presents to the emergency department with shortness of breath that began about 11 hours prior to arrival. She awoke with mid sternal chest pain and shortness of breath. She has had symptoms of persistent fatigue since she had a bovine AVR surgery at [facility] one month ago. She has been using her incentive spirometer at home as directed. She does have a history of pulmonary emboli and is not on any blood thinners at the current time. She denies any cramping in legs but she does feel that she gets some intermittent swelling in her feet. She has not had any sick exposures. She reports that walking approximately 15 feet to the bathroom and back makes her short of breath. Past Medical/Surgical History Medical Problems: (1) back surgery Status: Resolved (2) Barretts esophagus Status: Chronic (3) Hypertension Status: Chronic (4) Patellar tendonitis Status: Chronic Family History Diabetes mellitus FH: cancer FH: heart disease FH: lung disease Gallbladder disease Hypertension Kidney disease Kidney stones Social History Smoking Status: Never Smoker Smokeless Tobacco Use: No Alcohol Use: none Drug Use: none Marital Status: Housing status: lives with family Occupational Status: retired Immunizations History of Influenza Vaccine: Yes History of Tetanus Vaccine?: No History of Pneumococcal: Yes History of Hepatitis B Vaccine: No Multi-Drug Resistant Organisms History of MDRO: No Allergies Coded Allergies: Niacin (Verified Allergy, Intermediate, RASH, 05/11/17) Atorvastatin (Verified Allergy, Unknown, MUSCLE ACHES, 05/11/17) Diltiazem (Verified Allergy, Unknown, HEADACHE, 05/11/17) Home Medications Scheduled Aspirin (Aspirin Ec), 81 MG PO QAM Baclofen (Lioresal), 10 MG PO BID Carvedilol (Coreg), 3.125 MG PO BID Cholecalciferol (Vitamin D3), 1 CAP PO DAILY Hydrochlorothiazide (Hctz), 25 MG PO QAM Lisinopril (Zestril), 20 MG PO QAM Melatonin (Meladox), 0.5 TAB PO HS Rosuvastatin Calcium (Rosuvastatin Calcium), 20 MG PO HS Scheduled PRN Clonazepam (Klonopin), 0.5 MG PO HS PRN for Anxiety/Agitation Clonazepam (Klonopin), 0.5 MG PO QAM PRN for Anxiety/Agitation Review of Systems The patient denies sore throat, fevers, chills, sweats, weight change, nausea, vomiting, abdominal pain, pelvic pain, blood in urine or stool, dysuria, urinary frequency or urgency, headache, memory loss, rash, abnormal bruising or bleeding, imbalance, focal or generalized weakness, numbness or tingling in arms or legs, arthralgias or myalgias, back or neck pain, night sweats, or allergy symptoms. The review of systems is otherwise negative other than for that already noted above, and at least 10 systems have been reviewed. Physical Exam Vital Signs Date Time Temp Pulse Resp B/P (MAP) Pulse Ox O2 Delivery O2 Flow Rate FiO2 05/11/17 17:19 118 28 181/111 94 Room Air 05/11/17 15:26 97 30 141/84 93 Room Air 05/11/17 15:18 91 05/11/17 13:43 95 Room Air 05/11/17 13:42 95 Room Air 05/11/17 13:40 95 Room Air 05/11/17 13:27 36.4 98 22 94 Room Air The patient is awake, well-developed and adequately nourished, alert and oriented 3, normocephalic and atraumatic, looks fatigued, lying in bed and in no acute distress. HEENT--PERRL, EOMI, mucous membranes and oropharynx dry. Neck--supple, no JVD or bruits, thyroid normal, trachea midline, no adenopathy. Heart--normal S1 and S2, no extra beats, no murmurs, rubs or gallops. Lungs--decreased breath sounds at the bases bilaterally, no respiratory distress , no accessory muscle use. Abdomen--normal bowel sounds and soft, nontender and nondistended, no hernias or masses, no organomegaly. Extremities--no cyanosis, clubbing. There is trace bilateral pretibial pitting Edema. There are good distal pulses b/l. Dermatologic--normal skin turgor, normal color, warm and dry, no abnormal lymph nodes, no rash. Neurologic--cranial nerves II through XII grossly intact. Rheumatologic--normal range of motion, nontender, muscles and joints. Psychiatric--normal affect. Diagnostics Laboratory Results Results Past 24 Hours Test 05/11/17 00:00 05/11/17 13:38 05/11/17 17:07 Range/Units Urine Color YELLOW Urine Appearance CLEAR CLEAR Urine pH 8.0 4.5-7.5 Urine Specific Vil[place] 1.029 1.000-1.030 Urine Protein NEG NEG Urine Glucose (UA) NEG NEG Urine Ketones NEG NEG Urine Occult Blood TRACE NEG Urine Nitrite NEG NEG Urine Bilirubin NEG NEG Urine Urobilinogen NEG NEG Urine Leukocyte Esterase NEG NEG Urine WBC (Auto) 1-5 0-5 /hpf Urine RBC (Auto) 0-4 0-4 /hpf Urine Hyaline Casts (Auto) 0 0-5 /lpf Urine Epithelial Cells (Auto) 5-10 0-5 /lpf Urine Bacteria (Auto) NEG NEG White Blood Count 10.50 4.8-10.8 K/uL Red Blood Count 3.66 4.2-5.4 M/uL Hemoglobin 10.5 12.0-16.0 g/dL Hematocrit 32.8 37-47 % Mean Corpuscular Volume 89.6 80-100 fL Mean Corpuscular Hemoglobin 28.7 25-34 pg Mean Corpuscular Hemoglobin Concent 32.0 32-36 g/dl Platelet Count 284 130-400 K/uL Mean Platelet Volume 8.7 7.4-10.4 fL Neutrophils (%) (Auto) 72.5 % Lymphocytes (%) (Auto) 13.5 % Monocytes (%) (Auto) 10.9 % Eosinophils (%) (Auto) 2.4 % Basophils (%) (Auto) 0.5 % Neutrophils # (Auto) 7.62 1.4-6.5 K/uL Lymphocytes # (Auto) 1.42 1.2-3.4 K/uL Monocytes # (Auto) 1.14 0.11-0.59 K/uL Eosinophils # (Auto) 0.25 0-0.5 K/uL Basophils # (Auto) 0.05 0-0.2 K/uL RDW Standard Deviation 48.5 36.4-46.3 fL RDW Coefficient of Variation 14.7 11.5-14.5 % Immature Granulocyte % (Auto) 0.2 % Immature Granulocyte # (Auto) 0.02 0.00-0.02 K/uL Prothrombin Time 11.4 9.0-12.0 SECONDS Prothromb Time International Ratio 1.1 0.9-1.1 Activated Partial Thromboplast Time 27.9 21.0-31.0 SECONDS Partial Thromboplastin Ratio 1.1 Sodium Level 139 136-145 mmol/L Potassium Level 3.3 3.5-5.1 mmol/L Chloride Level 104 98-107 mmol/L Carbon Dioxide Level 28 21-32 mmol/L Anion Gap 7.0 3-11 mmol/L Blood Urea Nitrogen 17 7-18 mg/dl Creatinine 0.89 0.60-1.20 mg/dl Est Creatinine Clear Calc Drug Dose 65.4 ml/min Estimated GFR () 75.6 Estimated GFR (Non- 65.2 BUN/Creatinine Ratio 18.6 10-20 Random Glucose 103 70-99 mg/dl Calcium Level 9.2 8.5-10.1 mg/dl Total Bilirubin 0.4 0.2-1 mg/dl Direct Bilirubin 0.1 0-0.2 mg/dl Aspartate Amino Transf (AST/SGOT) 10 15-37 U/L Alanine Aminotransferase (ALT/SGPT) 15 12-78 U/L Alkaline Phosphatase 102 45-117 U/L Total Creatine Kinase 22 22 26-192 U/L Creatine Kinase MB < 0.5 < 0.5 0.5-3.6 ng/ml Creatine Kinase MB Ratio 0-3.0 Troponin I < 0.015 < 0.015 0-0.045 ng/ml Total Protein 7.7 6.4-8.2 gm/dl Albumin 3.1 3.4-5.0 gm/dl Lipase 158 73-393 U/L Thyroid Stimulating Hormone (TSH) 1.530 0.300-4.500 uIu/ml Diagnostic Radiology Patient Name: NEY VALDOVINOS Unit Number: [id number] Dictated: 05/11/171351 Transcribed: 05/11/171351 EV Printed Date/Time: [~ rep prt dt]/[~ rep prt tm] [~ rep ct labl] - [~ rep ct ivnm] [facility] [place] [address] Dictated: 05/11/171351 Transcribed: 05/11/172 EV Printed Date/Time: [~ rep prt dt]/[~ rep prt tm] [~ rep ct labl] - [~ rep ct ivnm] [~ rep ct add3]] SINGLE VIEW CHEST CLINICAL HISTORY: Fever. FINDINGS: An AP, portable, upright chest radiograph is compared to study dated 04/17/2017. Correlation is made with chest CT dated 10/11/2013. The examination is degraded by portable technique and patient rotation. The heart is top normal for projection and there is atherosclerotic calcification of the thoracic aorta. The pulmonary vasculature is noncongested. There is chronic elevation of the right hemidiaphragm. Airspace consolidation is noted at the right lung base. A small right pleural effusion is noted. Left lung is grossly clear. No pneumothorax is seen. The skeletal structures are osteopenic. The bony thorax is grossly intact. Degenerative change is noted in the thoracic spine. IMPRESSION: 1. There is airspace consolidation at the right lung base with a small right pleural effusion. Correlate clinically for evidence of pneumonia. Radiographic follow-up to resolution is recommended. 2. The left lung appears clear. Electronically signed by: González Ross M.D. 05/11/2017 1:54 PM Dictated Date/Time: 05/11/2017 1:52 PM The status of this report is Signed. Draft = Not yet reviewed or approved by Radiologist. Signed = Reviewed and approved by Radiologist. <AttendingPhy></AttendingPhy> <FamilyPhy>Renzo Barker M.D.</FamilyPhy > <PrimaryPhy>Renzo Barker M.D.</PrimaryPhy> <UnitNumber>[id number]</ UnitNumber> <VisitNumber>[id number]</VisitNumber> <PatientName>NEY VALDOVINOS </PatientName> <DateOfBirth>1945</DateOfBirth> <Location>[facility]</Location> <ServiceDate>05/11/17</ServiceDate> <MNE>ESINDI</MNE> <OrderingPhy>Sriram Herrera D.O.</OrderingPhy> <OrderingPhyMNE>f rep ord dr leiva</OrderingPhyMNE> < DictatingPhyMNE>f rep dict dr leiva</DictatingPhyMNE> <CCListMNE>f rep ct mne</ CCListMNE> <AdmittingPhyMNE>f pt admit dr leiva</AdmittingPhyMNE> <AttendingPhyMNE >f pt attend dr leiva</AttendingPhyMNE> <ConsultingPhyMNE>f pt consult dr leiva</ConsultingPhyMNE> <FamilyPhyMNE>f pt fam dr leiva</FamilyPhyMNE> <OtherPhyMNE>f pt other dr leiva</OtherPhyMNE> < PrimaryPhyMNE>f pt prim care dr leiva</PrimaryPhyMNE> <ReferringPhyMNE>f pt referring dr leiva</ReferringPhyMNE> Patient Name: NEY VALDOVINOS Unit Number: [id number] Dictated: 05/11/171502 Transcribed: 05/11/17 150 EV Printed Date/Time: [~ rep prt dt]/[~ rep prt tm] [~ rep ct labl] - [~ rep ct ivnm] [facility] [place] [address] Dictated: 05/11/17 1503 Transcribed: 05/11/17 1503 EV Printed Date/Time: [~ rep prt dt]/[~ rep prt tm] [~ rep ct labl] - [~ rep ct ivnm] CT ANGIOGRAM OF THE CHEST CLINICAL HISTORY: Fever. Reported history of recent thoracic surgery. COMPARISON STUDY: Chest x-ray dated 05/11/[address] dated 10/11/2013. TECHNIQUE: Following the IV administration of 93 cc of Optiray 320, CT angiogram of the chest was performed from the upper abdomen to the thoracic inlet utilizing the pulmonary embolus protocol. Images are reviewed in the axial, sagittal, and coronal planes. 3-D MIPS images are created and assessed. IV contrast was administered without complication. CT DOSE: 668.57 mGy.cm FINDINGS: Thyroid: Imaged portions of the thyroid gland are normal in size and attenuation. Thoracic aorta: There is mild atherosclerotic calcification of the thoracic aorta, which is normal in caliber and demonstrates standard 3-vessel arch anatomy. No dissection is seen. Pulmonary vasculature: The pulmonary trunk is normal in caliber. There are tiny segmental and subsegmental pulmonary emboli within branches of the left lower lobe pulmonary artery. The remaining pulmonary vessels are clear. Heart: The heart is top normal in size and there is trace pericardial effusion. There is evidence of aortic heart valve surgery. Dimension annulus is calcified. Lungs and pleural spaces: Evaluation of the lung parenchyma is degraded by respiratory motion artifact. There is elevation of the right hemidiaphragm. There is a moderate right pleural effusion with associated consolidation. The trachea and central airways are clear. Linear atelectasis versus scarring is seen at the right apex. Mediastinum: There is induration within the right ventral chest wall. There is a tiny fluid collection seen in the anterior mediastinum on axial image #167. This measures 2.7 x 2.4 cm is seen on image #168. Stranding is also seen throughout anterior mediastinum, also likely related to recent surgery. No mediastinal lymphadenopathy is seen. Sejal: Clear. Axillae: There is no axillary lymphadenopathy. Upper abdomen: There is a small to moderate hiatal hernia. Findings suggest previous cholecystectomy. Skeletal structures: The skeletal structures are osteopenic. Degenerative change and hyperkyphosis are noted in the thoracic spine. No lytic or blastic bony lesions are seen. There is a 4.0 cm lipoma within the left shoulder musculature seen on image #234. IMPRESSION: 1. There are tiny segmental and subsegmental pulmonary emboli within branches of the left lower lobe pulmonary artery. 2. The remaining pulmonary vessels are clear. 3. There is induration within the right ventral chest wall. There is a small fluid collection identified in the anterior mediastinum just deep to the cutaneous abnormality, and this likely represents a surgical port with a tiny postoperative seroma/hematoma. Mild stranding in the anterior mediastinum is also likely on a postoperative basis. Superimposed infection would be impossible to exclude and clinical correlation will be required. 4. Small pericardial effusion. 5. Moderate right pleural effusion with associated right basilar consolidation. This likely represents atelectasis. Correlate clinically for evidence of pneumonia. 6. Additional findings as above. Electronically signed by: González Ross M.D. 05/11/2017 3:12 PM Dictated Date/Time: 05/11/2017 3:03 PM The status of this report is Signed. Draft = Not yet reviewed or approved by Radiologist. Signed = Reviewed and approved by Radiologist. <AttendingPhy></AttendingPhy> <FamilyPhy>Renzo Barker M.D.</FamilyPhy > <PrimaryPhy>Renzo Barker M.D.</PrimaryPhy> <UnitNumber>[id number]</ UnitNumber> <VisitNumber>[id number]</VisitNumber> <PatientName>NEY VALDOVINOS </PatientName> <DateOfBirth>1945</DateOfBirth> <Location>[facility]</Location> <ServiceDate>05/11/17</ServiceDate> <MNE>ESINDI</MNE> <OrderingPhy>Sriram Herrera D.O.</OrderingPhy> <OrderingPhyMNE>f rep ord dr leiva</OrderingPhyMNE> < DictatingPhyMNE>f rep dict dr leiva</DictatingPhyMNE> <CCListMNE>f rep ct mne</ CCListMNE> <AdmittingPhyMNE>f pt admit dr leiva</AdmittingPhyMNE> <AttendingPhyMNE >f pt attend dr leiva</AttendingPhyMNE> <ConsultingPhyMNE>f pt consult dr leiva</ConsultingPhyMNE> <FamilyPhyMNE>f pt fam dr leiva</FamilyPhyMNE> <OtherPhyMNE>f pt other dr leiva</OtherPhyMNE> < PrimaryPhyMNE>f pt prim care dr leiva</PrimaryPhyMNE> <ReferringPhyMNE>f pt referring dr leiva</ReferringPhyMNE> EKG EKG shows normal sinus rhythm at 98 bpm, right bundle branch block, no change compared to 02/17/2015. Impression Assessment and Plan Right lower lobe pneumonia/left lower lobe pulmonary emboli--patient will be admitted to the telemetry unit. Placed on vancomycin IV per renal dosing, Zosyn 3.375 mg IV every 8 hours, Xopenex/Atrovent nebulizers every 6 hours while awake and every 2 hours when necessary, guaifenesin extended release 600 mg by mouth twice a day. We will place on heparin IV standard dose without bolus per protocol. Order bilateral lower extremity venous Dopplers to assess for DVT. Bovine AVR--the patient was to follow-up with her surgeon at [place] tomorrow. Consult cardiology. Hypertension--continue enteric-coated aspirin 81 mg by mouth every morning, carvedilol 3.125 mg by mouth twice a day, lisinopril 20 mg by mouth every morning. Hold HCTZ 25 mg by mouth every morning. Hyperlipidemia--continue rosuvastatin 20 mg by mouth at bedtime. Muscle spasm--continue baclofen 10 mg by mouth twice a day. Insomnia--continue melatonin 1 tablet by mouth at bedtime. Level of Care Telemetry Advanced Directives Existing Advance Directive: No Existing Living Will: No Existing Power of Pulp Mixer: No Resuscitation Status FULL RESUSCITATION VTE Prophylaxis VTE Risk Assessment Done? Y/N: Yes Risk Level: Moderate Given or contraindicated: Other Anticoagulation (heparin IV standard dose)
[2017-05-11 18:00] VITALS: BP 159/84; PULSE 97; TEMP 37.1; Ht 160 cm; Wt 102.1 kg
[2017-05-11] MEDS: ACETAMINOPHEN 325 MG TAB PO PRN ×2 (18:40→23:41)
[2017-05-11 19:06] VITALS: PULSE 101; O2SAT 93
[2017-05-11] MEDS: IPRATROPIUM BROMIDE NEB SOLN 0.02% 2.5 ML VIAL INH SCH (19:06)
[2017-05-11] MEDS: LEVALBUTEROL 1.25MG/0.5ML NEB INH SCH (19:06)
[2017-05-11] MEDS: NSS + 20MEQ KCL 1000ML 1,000 ML IV SCH (19:20)
[2017-05-11 19:22] VITALS: BP 110/69; PULSE 99; TEMP 36.9; O2SAT 94
[2017-05-11] MEDS: BACLOFEN 10 MG TAB PO SCH (20:35)
[2017-05-11] MEDS: ROSUVASTATIN CALCIUM 20 MG TAB PO SCH (20:35)
[2017-05-11] MEDS: GUAIFENESIN 600 MG TABCR PO SCH (20:35)
[2017-05-11] MEDS: CARVEDILOL 3.125 MG TAB PO SCH (20:36)
[2017-05-11] MEDS ORDERED: MoRPHine SULFATE 2 MG/ML CARP IV SCH (21:00)
[2017-05-11] MEDS ORDERED: MELATONIN PO SCH (21:00)
[2017-05-11] MEDS ORDERED: LEVALBUTEROL/IPRATROPIUM NEB INH SCH (21:00)
[2017-05-11] MEDS: PIPERACILL/TAZOBAC IV 4.5 GM in DEXTROSE 5% 100ML 100 ML IV SCH (22:43)
[2017-05-11 23:20] VITALS: BP 109/70; PULSE 83; TEMP 36.6; O2SAT 95
[2017-05-11 23:47] LABS: PARTIAL THROMBOPLASTIN RATIO 2.2
[2017-05-12] VITALS (9 sets, daily range): BP systolic 104–134; BP diastolic 70–80; PULSE 81–94; TEMP 36.7–37; O2SAT 91–94
[2017-05-12] MEDS: HEPARIN 25,000 UNIT/500ML D5W 500 ML IV PRN ×2 (00:45→12:40)
[2017-05-12] MEDS: IPRATROPIUM BROMIDE NEB SOLN 0.02% 2.5 ML VIAL INH SCH ×4 (02:05→19:38)
[2017-05-12] MEDS: LEVALBUTEROL 1.25MG/0.5ML NEB INH SCH ×4 (02:05→19:38)
[2017-05-12] MEDS: PIPERACILL/TAZOBAC IV 4.5 GM in DEXTROSE 5% 100ML 100 ML IV SCH ×2 (06:09→13:58)
[2017-05-12] MEDS: NSS + 20MEQ KCL 1000ML 1,000 ML IV SCH ×2 (06:09→13:58)
--- NOTE | 2017-05-12 07:13 | DIAGNOSTIC IMAGING REPORT ---
BILATERAL LOWER EXTREMITY VENOUS DOPPLER CLINICAL HISTORY: Pulmonary emboli. COMPARISON STUDY: Right lower extremity venous Doppler Mar 08 2010. TECHNIQUE: Sonography of the deep venous system of the bilateral lower extremities was performed. Compression and augmentation were evaluated. FINDINGS: There is nonocclusive deep venous thrombus within the right peroneal vein. There is superficial thrombus within right gastrocnemius veins within the right popliteal fossa which extends to within 3 mm of the right popliteal vein. No deep venous thrombus is identified within the left lower extremity. Note is made of a 4.1 x 3 x 4.8 cm irregular cystic appearing structure within the left groin. This is anterior to the left common femoral and superficial femoral arteries. No color flow is identified within this structure. IMPRESSION: 1. Nonocclusive deep venous thrombus within the right peroneal vein and superficial thrombus within the right gastrocnemius vein which extends to within 3 mm of the right popliteal vein. 2. 4.1 x 3 x 4.8 cm cystic abnormality within the left groin which is anterior to the left common femoral and superficial femoral arteries. This contains no color flow. This is nonspecific but may reflect an evolving hematoma/seroma and could be correlated with history of recent groin catheterization. Electronically signed by: Rikki Herrera M.D. 05/12/2017 7:12 AM Dictated Date/Time: 05/12/2017 7:08 AM
[2017-05-12] MEDS ORDERED: VANCOMYCIN INJ 1,250 MG in SODIUM CHLORIDE 0.9% 250ML 250 ML IV SCH (08:00)
[2017-05-12] MEDS: CHOLECALCIFEROL 1000 INTER.UNIT TAB PO SCH (08:15)
[2017-05-12] MEDS: LISINOPRIL 20 MG TAB PO SCH (08:15)
[2017-05-12] MEDS: BACLOFEN 10 MG TAB PO SCH ×2 (08:15→21:24)
[2017-05-12] MEDS: ASPIRIN 81 MG ECTAB PO SCH (08:15)
[2017-05-12] MEDS: GUAIFENESIN 600 MG TABCR PO SCH ×2 (08:15→21:24)
[2017-05-12] MEDS: CARVEDILOL 3.125 MG TAB PO SCH ×2 (08:15→21:25)
[2017-05-12 09:02] LABS: BASO % 0.6 %; BASO ABS # 0.06 K/uL (0-0.2); COMPLETE YES; EOS % 1.7 %; HEMATOCRIT 31.4 % (37-47); IG% 0.4 %; LYMPH % 14.4 %; LYMPH ABS # 1.45 K/uL (1.2-3.4); MEAN CELL VOLUME 88.5 fL (80-100); MEAN CORPUSCULAR HEMOGLOBIN 28.2 pg (25-34); MEAN CORPUSCULAR HGB CONC 31.8 g/dl (32-36); MEAN PLATELET VOLUME 9.3 fL (7.4-10.4); MONO % 7.4 %; NEUT % 75.5 %; PLATELET COUNT 248 K/uL (130-400); RED BLOOD COUNT 3.55 M/uL (4.2-5.4); WHITE BLOOD COUNT 10.08 K/uL (4.8-10.8)
[2017-05-12 09:16] LABS: INR 1.1 (0.9-1.1); PARTIAL THROMBOPLASTIN RATIO 2.2; PROTHROMBIN TIME (PATIENT) 11.5 SECONDS (9.0-12.0)
[2017-05-12 09:31] LABS: BUN/CREATININE RATIO 10.4 (10-20); CALCIUM 9.1 mg/dl (8.5-10.1); CREATININE 0.94 mg/dl (0.60-1.20); POTASSIUM 3.3 mmol/L (3.5-5.1)
[2017-05-12] MEDS ORDERED: DOCUSATE SODIUM 100 MG CAP PO ONE (12:00)
[2017-05-12] MEDS: CLONAZEPAM 0.5 MG TAB PO PRN ×2 (13:58→23:14)
[2017-05-12] MEDS ORDERED: POLYETHYLENE (MIRALAX) 17 GM PACK PO ONE (17:35)
--- NOTE | 2017-05-12 17:48 | Progress Note ---
Subjective Date of Service: May 12, 2017. Subjective Pt evaluation today including: conversation w/ patient, conversation w/ family , physical exam, chart review, lab review, review of studies, review of inpatient medication list feeling better than when she first came in but about the same as last night - ongoing chest tightness/sob. no f/c/s. no purulent sputum. no pleuritic pain. Problem List Medical Problems: (1) Acute diverticulitis Status: Acute (2) Back pain Status: Acute (3) Pulmonary emboli Status: Acute (4) Shortness of breath Status: Acute Review of Systems all other ROS otherwise negative except for as above Objective Vital Signs Date Time Temp Pulse Resp B/P (MAP) Pulse Ox O2 Delivery O2 Flow Rate FiO2 05/12/17 16:00 Room Air 05/12/17 15:43 36.7 94 20 119/76 (90) 93 Room Air 05/12/17 14:24 91 16 93 Room Air 05/12/17 12:30 Room Air 05/12/17 12:29 88 20 118/78 (91) 94 05/12/17 08:46 Room Air 05/12/17 07:31 82 16 93 Room Air 05/12/17 07:28 36.7 88 16 134/80 (98) 93 05/12/17 04:04 36.7 81 20 104/70 (81) 91 Room Air 05/12/17 04:00 Room Air 05/12/17 00:00 Room Air 05/11/17 23:20 36.6 83 20 109/70 (83) 95 2.0 05/11/17 20:00 Room Air 05/11/17 19:22 36.9 99 20 110/69 (83) 94 Room Air 05/11/17 19:06 101 16 93 Room Air 05/11/17 18:00 37.1 97 20 159/84 Physical Exam General Appearance: no apparent distress Eyes: EOMI ENT: hearing grossly normal Neck: trachea midline Respiratory/Chest: lungs clear, normal breath sounds (slightly diminished base R), no respiratory distress, no accessory muscle use Extremities: normal range of motion Neurologic/Psychiatric: marking stitcher II-XII nml as tested, alert, normal mood/affect Skin: normal color, warm/dry Laboratory Results Last 24 Hours Test 05/11/17 23:15 05/12/17 00:11 05/12/17 08:37 05/12/17 12:31 Activated Partial Thromboplast Time 56.0 SECONDS 57.2 SECONDS Partial Thromboplastin Ratio 2.2 2.2 Total Creatine Kinase 22 U/L 23 U/L Creatine Kinase MB < 0.5 ng/ml < 0.5 ng/ml Creatine Kinase MB Ratio Troponin I < 0.015 ng/ml < 0.015 ng/ml White Blood Count 10.08 K/uL Red Blood Count 3.55 M/uL Hemoglobin 10.0 g/dL Hematocrit 31.4 % Mean Corpuscular Volume 88.5 fL Mean Corpuscular Hemoglobin 28.2 pg Mean Corpuscular Hemoglobin Concent 31.8 g/dl Platelet Count 248 K/uL Mean Platelet Volume 9.3 fL Neutrophils (%) (Auto) 75.5 % Lymphocytes (%) (Auto) 14.4 % Monocytes (%) (Auto) 7.4 % Eosinophils (%) (Auto) 1.7 % Basophils (%) (Auto) 0.6 % Neutrophils # (Auto) 7.61 K/uL Lymphocytes # (Auto) 1.45 K/uL Monocytes # (Auto) 0.75 K/uL Eosinophils # (Auto) 0.17 K/uL Basophils # (Auto) 0.06 K/uL RDW Standard Deviation 48.2 fL RDW Coefficient of Variation 14.8 % Immature Granulocyte % (Auto) 0.4 % Immature Granulocyte # (Auto) 0.04 K/uL Prothrombin Time 11.5 SECONDS Prothromb Time International Ratio 1.1 Sodium Level 142 mmol/L Potassium Level 3.3 mmol/L Chloride Level 108 mmol/L Carbon Dioxide Level 23 mmol/L Anion Gap 11.0 mmol/L Blood Urea Nitrogen 10 mg/dl Creatinine 0.94 mg/dl Est Creatinine Clear Calc Drug Dose 61.9 ml/min Estimated GFR () 70.7 Estimated GFR (Non- 61.0 BUN/Creatinine Ratio 10.4 Random Glucose 152 mg/dl Calcium Level 9.1 mg/dl Magnesium Level 2.0 mg/dl Total Bilirubin 0.5 mg/dl Direct Bilirubin 0.1 mg/dl Aspartate Amino Transf (AST/SGOT) 9 U/L Alanine Aminotransferase (ALT/SGPT) 11 U/L Alkaline Phosphatase 92 U/L Total Protein 7.2 gm/dl Albumin 2.6 gm/dl C-Reactive Protein 13.00 mg/dl Procalcitonin < 0.05 ng/ml Assessment and Plan acute PE - recurrent but provoked. currently stable on heparin gtt. she's deciding between coumadin and NOAC. stable. continue heparin gtt for now. treatment duration w recurrent PE's would be lifelong, although will try to glean more hx from previous PE if ?provoked right lower lung consolidation/effusion - appearing clinically most c/w effusion and compressive atelectasis. no fever/leukocytosis. MRSA nares neg - - stopped vanco. checked CRP and procalcitonin - reassuring procal, CRP somewhat elevated - but clinical picture not overtly c/w pneumonia - stop zosyn and follow closely Bovine AVR/valvular heart disease/pleural effusion - outpt f/u w mary CTS. appearing to be recovering appropriately. doesn't have s/s active CHF Hypertension--continue enteric-coated aspirin 81 mg by mouth every morning, carvedilol 3.125 mg by mouth twice a day, lisinopril 20 mg by mouth every morning. HCTZ on hold. BP's have been reasonable Hyperlipidemia--continue rosuvastatin 20 mg by mouth at bedtime. Muscle spasm--continue baclofen 10 mg by mouth twice a day. Insomnia--continue melatonin 1 tablet by mouth at bedtime.
--- NOTE | 2017-05-12 18:08 | Cardiology Consultation ---
Cardiology Consultation Date of Consultation: May 12, 2017. History of Present Illness Mrs. Madsen is a very pleasant 72-year-old woman known to me from the outpatient setting with a history of hypertension, prior right bundle-branch block, remote PE, heterozygous for prothrombin gene mutation, hyperlipidemia, osteoarthritis, obstructive sleep apnea, GERD, fatty liver disease and severe aortic stenosis status post minimally invasive AVR 1 month ago was admitted overnight in the setting of acute onset shortness of breath, chest tightness. Patient had recently been seen for post hospital follow-up 3 days ago at which time was progressing slowly as expected following her AVR. Yesterday patient developed acute shortness of breath with some mild chest tightness not result contacted cardiac surgery at [place] who recommended further evaluation in the ED. Patient denied any associated fevers, chills, productive cough. Of note did endorse some right lower extremity swelling since her hospitalization. Upon presentation in the ED was hemodynamically stable, oxygenating well. Some suggestion of consolidation chest x-ray and CTA showed small segmental, subsegmental left lower lobe PEs with right pleural effusion and lower lobe infiltrates suggestive of atelectasis. She was treated for possible hospital- acquired pneumonia and started on anticoagulation for PE. Lower extremity venous duplex showed distal DVT and calf SVT. This morning patient states that she feels about the same significantly limiting shortness of breath with any activity. Prior cardiovascular history: Aortic valve replacement (04/11/2017): Dr. Romero, [facility] [place], minimally invasive AVR via right mini thoracotomy, #21 [employer] pericardial valve Cardiac catheterization (03/2017): Left main luminal irregularities; lad 20-30 percent mid moderate 2nd diagonal 20-30 percent ostial; circumflex luminal irregularities; RCA dominant, luminal irregularities. RA 9, RV 35/11, PA 37/19 (27), PCW 15, aortic sat 92, PA sat 65, cardiac output 5.5 index 2.7 Echo (03/2017): Normal LV size, mild LVH, EF 55-60 percent, borderline dilated RV with normal RV function. Severe (peak velocity 4.57, mean gradient 55, aortic valve area 0.67), grade 1 diastolic dysfunction Past Medical/Surgical History hypertension, prior right bundle-branch block, remote PE, heterozygous for prothrombin gene mutation, hyperlipidemia, osteoarthritis, obstructive sleep apnea, GERD, fatty liver disease and severe aortic stenosis Family History Diabetes mellitus FH: cancer FH: heart disease FH: lung disease Gallbladder disease Hypertension Kidney disease Kidney stones Social History Smoking Status: Never Smoker History of Alcohol Use: Yes (RARELY) All Other Systems: Reviewed and Negative Allergies Coded Allergies: Niacin (Verified Allergy, Intermediate, RASH, 05/11/17) Atorvastatin (Verified Allergy, Unknown, MUSCLE ACHES, 05/11/17) Diltiazem (Verified Allergy, Unknown, HEADACHE, 05/11/17) Medications Current Inpatient Medications Medications (Trade) Dose Ordered Sig/[place] Route Start Time Stop Time Status Last Admin Dose Admin Ioversol (Optiray 320) 125 ml UD PRN IV 05/11/17 14:00 05/15/17 13:59 Acetaminophen (Tylenol Tab) 650 mg Q4H PRN PO 05/11/17 16:15 06/10/17 16:14 05/11/17 23:41 650 MG Zolpidem Tartrate (Ambien Tab) 5 mg HSZ PRN PO 05/11/17 16:15 06/10/17 16:14 Nitroglycerin (Nitrostat Tab) 0.4 mg UD PRN SL 05/11/17 16:15 06/10/17 16:14 Aspirin (Ecotrin Tab) 81 mg QAM PO 05/12/17 09:00 06/11/17 08:59 05/12/17 08:15 81 MG Baclofen (Lioresal Tab) 10 mg BID PO 05/11/17 21:00 06/10/17 20:59 05/12/17 08:15 10 MG Carvedilol (Coreg Tab) 3.125 mg BID PO 05/11/17 21:00 06/10/17 20:59 05/12/17 08:15 3.125 MG Clonazepam (Klonopin Tab) 0.5 mg HS PRN PO 05/11/17 16:15 06/10/17 16:14 Clonazepam (Klonopin Tab) 0.5 mg QAM PRN PO 05/11/17 16:15 06/10/17 16:14 05/12/17 13:58 0.5 MG Lisinopril (Zestril Tab) 20 mg QAM PO 05/12/17 09:00 06/11/17 08:59 05/12/17 08:15 20 MG Rosuvastatin Calcium (Crestor Tab) 20 mg HS PO 05/11/17 21:00 06/10/17 20:59 05/11/17 20:35 20 MG Cholecalciferol (Vitamin D Tab) 2,000 inter.unit QAM PO 05/12/17 09:00 06/11/17 08:59 05/12/17 08:15 2,000 INTER.UNIT Ondansetron HCl (Zofran Inj) 4 mg Q6H PRN IV 05/11/17 16:15 06/10/17 16:14 Potassium Chloride/Sodium Chloride 1,000 ml @ 100 mls/hr Q10H IV 05/11/17 18:30 06/10/17 16:10 05/12/17 13:58 100 MLS/HR Guaifenesin (Mucinex Contr Rel Tab) 600 mg Q12 PO 05/11/17 21:00 06/10/17 20:59 05/12/17 08:15 600 MG Ipratropium [place] (Atrovent 0.02% 0.5MG/2.5ML Neb) 0.5 mg Q6R INH 05/11/17 21:00 06/10/17 20:59 05/12/17 14:24 0.5 MG Levalbuterol (Xopenex 1.25MG/ 0.5ML Neb) 1.25 mg Q6R INH 05/11/17 21:00 06/10/17 20:59 05/12/17 14:24 1.25 MG Ipratropium [place] (Atrovent 0.02% 0.5MG/2.5ML Neb) 0.5 mg Q2H PRN INH 05/11/17 17:15 06/10/17 17:14 Levalbuterol (Xopenex 1.25MG/ 0.5ML Neb) 1.25 mg Q2H PRN INH 05/11/17 17:15 06/10/17 17:14 Heparin Sodium/ Dextrose 500 ml @ 26 mls/hr [id number] PRN IV 05/11/17 18:15 06/10/17 18:14 05/12/17 12:40 26 MLS/HR Polyethylene (Miralax Powder Packet) 17 gm DAILY PRN PO 05/12/17 17:45 06/11/17 17:44 Physical Exam Vital Signs Past 12 Hours Date Time Temp Pulse Resp B/P (MAP) Pulse Ox O2 Delivery O2 Flow Rate FiO2 05/12/17 16:00 Room Air 05/12/17 15:43 36.7 94 20 119/76 (90) 93 Room Air 05/12/17 14:24 91 16 93 Room Air 05/12/17 12:30 Room Air 05/12/17 12:29 88 20 118/78 (91) 94 05/12/17 08:46 Room Air 05/12/17 07:31 82 16 93 Room Air 05/12/17 07:28 36.7 88 16 134/80 (98) 93 Head: atraumatic ENMT: hearing grossly normal Neck: supple Lungs: Auscultation: rales/crackles on the right (At the base) Cardiovascular: Heart Auscultation: tachycardia (Regular), II/ SHANEKA (Barton bioprosthetic closure sound), pertinent finding (Right thoracotomy incision well healed) Peripheral Pulses: Radial Pulse: normal on the left, normal on the right Femoral Pulse: normal on the left, normal on the right Dorsalis Pedis Pulse: normal on the left, normal on the right Abdomen: Inspection & Palpation: soft, non-distended, no tenderness, guarding & rebound Extremities: no varicosities, no palpable cord, pertinent finding (Mild right lower extremity swelling 1+) Neurologic: Cranial Nerves: grossly intact Sensation: grossly intact Data Laboratory Results: Last 24 Hours Test 05/11/17 23:15 05/12/17 00:11 05/12/17 08:37 05/12/17 12:31 Activated Partial Thromboplast Time 56.0 SECONDS 57.2 SECONDS Partial Thromboplastin Ratio 2.2 2.2 Total Creatine Kinase 22 U/L 23 U/L Creatine Kinase MB < 0.5 ng/ml < 0.5 ng/ml Creatine Kinase MB Ratio Troponin I < 0.015 ng/ml < 0.015 ng/ml White Blood Count 10.08 K/uL Red Blood Count 3.55 M/uL Hemoglobin 10.0 g/dL Hematocrit 31.4 % Mean Corpuscular Volume 88.5 fL Mean Corpuscular Hemoglobin 28.2 pg Mean Corpuscular Hemoglobin Concent 31.8 g/dl Platelet Count 248 K/uL Mean Platelet Volume 9.3 fL Neutrophils (%) (Auto) 75.5 % Lymphocytes (%) (Auto) 14.4 % Monocytes (%) (Auto) 7.4 % Eosinophils (%) (Auto) 1.7 % Basophils (%) (Auto) 0.6 % Neutrophils # (Auto) 7.61 K/uL Lymphocytes # (Auto) 1.45 K/uL Monocytes # (Auto) 0.75 K/uL Eosinophils # (Auto) 0.17 K/uL Basophils # (Auto) 0.06 K/uL RDW Standard Deviation 48.2 fL RDW Coefficient of Variation 14.8 % Immature Granulocyte % (Auto) 0.4 % Immature Granulocyte # (Auto) 0.04 K/uL Prothrombin Time 11.5 SECONDS Prothromb Time International Ratio 1.1 Sodium Level 142 mmol/L Potassium Level 3.3 mmol/L Chloride Level 108 mmol/L Carbon Dioxide Level 23 mmol/L Anion Gap 11.0 mmol/L Blood Urea Nitrogen 10 mg/dl Creatinine 0.94 mg/dl Est Creatinine Clear Calc Drug Dose 61.9 ml/min Estimated GFR () 70.7 Estimated GFR (Non- 61.0 BUN/Creatinine Ratio 10.4 Random Glucose 152 mg/dl Calcium Level 9.1 mg/dl Magnesium Level 2.0 mg/dl Total Bilirubin 0.5 mg/dl Direct Bilirubin 0.1 mg/dl Aspartate Amino Transf (AST/SGOT) 9 U/L Alanine Aminotransferase (ALT/SGPT) 11 U/L Alkaline Phosphatase 92 U/L Total Protein 7.2 gm/dl Albumin 2.6 gm/dl C-Reactive Protein 13.00 mg/dl Procalcitonin < 0.05 ng/ml Imaging: CTA chest--tiny segmental, subsegmental pulmonary emboli within branches of left lower lobe pulmonary artery, small fluid collection in the anterior mediastinum small pericardial effusion moderate right pleural effusion associated right basilar consolidation Venous duplex --nonocclusive distal DVT in the right peroneal vein. Superficial thrombus in right gastrocnemius vein ordering right popliteal vein. Cystic abnormality in the left groin anterior to left common femoral, superficial femoral arteries EKG:sinus rhythm, right bundle-branch block, no ST abnormalities Telemetry reviewed: No events overnight Assessment & Plan 1. Acute dyspnea 2. Small segmental/subsegmental PEs, distal DVT--history of prior VTE, heterozygous prothrombin gene mutation 3. Right lower lobe infiltrate atelectasis versus HCAP/right pleural effusion 4. Status post recent minimally invasive AVR for severe aortic stenosis 5. Hypertension 6. Anemia 7. Hypokalemia 8. Left groin Cystic structure Patient here with acute onset of dyspnea following recent hospitalization for AVR for severe aortic stenosis. She was found to have small segmental/ subsegmental PEs and distal DVT. She is also beating treated for possible HCAP with broad-spectrum antibiotics although this seems less likely. On exam today she is well perfused with mild vascular congestion. Going forward agree with systemic anticoagulation. No apparent contraindications for NOACs and would consider transitioning from heparin at some point prior to discharge. Further discussion regarding duration of treatment as an outpatient but in the setting recurrent events may benefit from lifelong therapy. Would also consider gentle diuresis, Lasix 40 milligrams p.o. and follow renal function, I/Os. Not concerned about right anterior chest wall fluid collection postoperatively. Left groin cystic structure not related to recent cardiac catheterization. No other changes to cardiac regimen at this time. Will continue to follow.
--- NOTE | 2017-05-12 20:36 | Medical Student: [facility] ---
Med Student Progress Note Date of Service May 12, 2017. Subjective Pt evaluation today including: conversation w/ patient, conversation w/ family ( & sister) Mrs. Madsen is a 72 year old female with a PMH significant for PE after knee surgery & not on currently on anticoagulation, Smith's esophagus, endocervical polyp, HTN, patellar tendonitis, and bovine aortic valve replacement on 04/11/2017 who presented on 05/11/2017 for SOB. Her SOB has been worsening since her aortic valve replacement, but became exceptionally worse at 0330 on 05/11/2017. She had associated chest pain that she described as tightness and b/l lower extremity swelling. She denied radiation of pain to her arms or back, nausea, vomiting, CROCKETT, or abdominal pain. Today, the patient's SOB is improving since Friday morning. She is no longer on NC and sating on 93% on room air. She continues to have chest pain, but that is improving as well. She hasn't had a BM since Friday and her nurse had to manually disimpact her this morning. Otherwise, she denies CROCKETT and abdominal pain. We discussed outpatient anticoagulation upon discharge. We discussed her options between Coumadin and new anticoagulation drugs including Xarelto and Eliquis. We reviewed risks and benefits of the various drugs and she would like time to decide which she would like to take as an outpatient. Review of Systems Constitutional: No fever, No chills Eyes: No worsening of vision ENT: No hearing loss Respiratory: + cough, + sputum, + shortness of breath, No wheezing Cardiac: + chest pain, No edema, No palpitations Abdomen: + constipation, No pain, No nausea, No vomiting, No diarrhea Musculoskeletal: No joint pain Female : No dysuria, No urinary frequency, No hematuria Endo: No fatigue Skin: No rash Objective Vital Signs Date Time Temp Pulse Resp B/P (MAP) Pulse Ox O2 Delivery O2 Flow Rate FiO2 05/12/17 19:39 87 16 92 Room Air 05/12/17 19:36 36.8 94 22 121/75 (90) 91 Room Air 05/12/17 16:00 Room Air 05/12/17 15:43 36.7 94 20 119/76 (90) 93 Room Air 05/12/17 14:24 91 16 93 Room Air 05/12/17 12:30 Room Air 05/12/17 12:29 88 20 118/78 (91) 94 05/12/17 08:46 Room Air 05/12/17 07:31 82 16 93 Room Air 05/12/17 07:28 36.7 88 16 134/80 (98) 93 05/12/17 04:04 36.7 81 20 104/70 (81) 91 Room Air 05/12/17 04:00 Room Air 05/12/17 00:00 Room Air 05/11/17 23:20 36.6 83 20 109/70 (83) 95 2.0 Physical Exam General Appearance: WD/WN, no apparent distress Eyes: bilateral eyes PERRL, bilateral eyes EOMI ENT: normal ENT inspection, hearing grossly normal Neck: supple, no adenopathy Respiratory/Chest: lungs clear, normal breath sounds, no respiratory distress, no accessory muscle use Cardiovascular: regular rate, rhythm, no edema, no gallop, no murmur Abdomen: normal bowel sounds, non tender, soft, no organomegaly Extremities: no pedal edema, no calf tenderness 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, no motor/sensory deficits, oriented x 3 Skin: normal color, warm/dry, no rash Laboratory Results Last 24 Hours Test 05/11/17 23:15 05/12/17 00:11 05/12/17 08:37 05/12/17 12:31 Activated Partial Thromboplast Time 56.0 SECONDS 57.2 SECONDS Partial Thromboplastin Ratio 2.2 2.2 Total Creatine Kinase 22 U/L 23 U/L Creatine Kinase MB < 0.5 ng/ml < 0.5 ng/ml Creatine Kinase MB Ratio Troponin I < 0.015 ng/ml < 0.015 ng/ml White Blood Count 10.08 K/uL Red Blood Count 3.55 M/uL Hemoglobin 10.0 g/dL Hematocrit 31.4 % Mean Corpuscular Volume 88.5 fL Mean Corpuscular Hemoglobin 28.2 pg Mean Corpuscular Hemoglobin Concent 31.8 g/dl Platelet Count 248 K/uL Mean Platelet Volume 9.3 fL Neutrophils (%) (Auto) 75.5 % Lymphocytes (%) (Auto) 14.4 % Monocytes (%) (Auto) 7.4 % Eosinophils (%) (Auto) 1.7 % Basophils (%) (Auto) 0.6 % Neutrophils # (Auto) 7.61 K/uL Lymphocytes # (Auto) 1.45 K/uL Monocytes # (Auto) 0.75 K/uL Eosinophils # (Auto) 0.17 K/uL Basophils # (Auto) 0.06 K/uL RDW Standard Deviation 48.2 fL RDW Coefficient of Variation 14.8 % Immature Granulocyte % (Auto) 0.4 % Immature Granulocyte # (Auto) 0.04 K/uL Prothrombin Time 11.5 SECONDS Prothromb Time International Ratio 1.1 Sodium Level 142 mmol/L Potassium Level 3.3 mmol/L Chloride Level 108 mmol/L Carbon Dioxide Level 23 mmol/L Anion Gap 11.0 mmol/L Blood Urea Nitrogen 10 mg/dl Creatinine 0.94 mg/dl Est Creatinine Clear Calc Drug Dose 61.9 ml/min Estimated GFR () 70.7 Estimated GFR (Non- 61.0 BUN/Creatinine Ratio 10.4 Random Glucose 152 mg/dl Calcium Level 9.1 mg/dl Magnesium Level 2.0 mg/dl Total Bilirubin 0.5 mg/dl Direct Bilirubin 0.1 mg/dl Aspartate Amino Transf (AST/SGOT) 9 U/L Alanine Aminotransferase (ALT/SGPT) 11 U/L Alkaline Phosphatase 92 U/L Total Protein 7.2 gm/dl Albumin 2.6 gm/dl C-Reactive Protein 13.00 mg/dl Procalcitonin < 0.05 ng/ml Assessment and Plan Assessment and Plan: Assessment: Mrs. Madsen is a 72 year old female with a PMH significant for PE after knee surgery & not on currently on anticoagulation, Smith's esophagus, endocervical polyp, HTN, patellar tendonitis, and bovine aortic valve replacement on 04/11/2017 who presented on 05/11/2017 for SOB. Since admission, the patient has remained afebrile and has been sating in the low 90s on RA. Serial troponins and CK-MB were negative. UA was negative for infection. ECG shows RBBB with no evidence of ischemia. CXR shows a possible consolidation in the right lung base with effusion. Chest CTA shows segmental and subsegmental PEs within branches of the left lower lobe pulmonary artery, induration of the right ventral chest wall indicative of fluid collection in the anterior mediastinum, pericardial effusion, and right pleural effusion & consolidation. b /l LE venous doppler shows a right peroneal vein DVT and superficial thrombus within the right gastrocnemius. It also showed a 4.1 cm x 3 cm x 4.8 cm left groin cyst over the anterior left common femoral artery. This is indicative of evolving hematoma from recent groin catheterization. Although CXR and chest CTA indicate consolidation, clinically, the patient does not appear to have pneumonia. She has remained afebrile and WBC count has been normal since admission. Clinically, the patient does appear to have left lower lobe PE's consistent with chest CTA. Plan: Left lower lobe pulmonary emboli - Patient continues to be SOB and sating in the low 90's on RA. CTA is consistent with left lower lobe PEs and patient's recent history of bovine AVR on 04/11 and finding of right lower extremity DVT suggests a provoked PE. -continue therapeutic IV heparin/dextrose 500 mL @ 266cc/hr -continue Ipratropium nebulizer 0.5 mg q6hr -continue levalbuterol 1.25 mg q6hr -continue guaifenesin 600 mg BID -continue Nitro 0.4 mg PRN for chest pain -consider coumadin vs xarelto vs eliquis upon discharge Right lower lobe pneumonia - Although CXR and chest CTA suggest consolidation in the right lower lobe, the patient clinically does not appear to have pneumonia. Since admission, she has remained afebrile and has had no leukocytosis -CRP 13 & Procalcitonin <0.05 - not suggestive of infectious process -MRSA nares negative -d/c Vancomycin & Zosyn -re-evaluate patient's clinical status AM Bovine AVR -f/u outpatient in [place] -left groin cyst found on b/l LE venous doppler, no pain and not concerning at this time -fluid collection of anterior mediastinum found on chest CTA, no pain and most likely post-op hematoma from surgical port, not concerning at this time HTN -Aspirin 81 mg PO -Carvedilol 3.125 mg PO BID -Lisinopril 20 mg PO -HCTZ 25 mg PO HLD -Rosuvastatin 20 mg PO Muscle Spasm -Baclofen 10 mg PO Constipation -Miralax 17 g
[2017-05-12] MEDS: ROSUVASTATIN CALCIUM 20 MG TAB PO SCH (21:25)
[2017-05-13] VITALS (11 sets, daily range): BP systolic 106–147; BP diastolic 64–85; PULSE 76–94; TEMP 36.5–36.8; O2SAT 91–96
[2017-05-13] MEDS: IPRATROPIUM BROMIDE NEB SOLN 0.02% 2.5 ML VIAL INH SCH ×4 (01:29→19:46)
[2017-05-13] MEDS: LEVALBUTEROL 1.25MG/0.5ML NEB INH SCH ×4 (01:29→19:46)
[2017-05-13 05:51] LABS: BASO % 0.7 %; BASO ABS # 0.05 K/uL (0-0.2); COMPLETE YES; EOS % 2.7 %; HEMATOCRIT 29.8 % (37-47); IG% 0.3 %; LYMPH % 20.2 %; LYMPH ABS # 1.52 K/uL (1.2-3.4); MEAN CELL VOLUME 87.6 fL (80-100); MEAN CORPUSCULAR HEMOGLOBIN 26.8 pg (25-34); MEAN CORPUSCULAR HGB CONC 30.5 g/dl (32-36); MEAN PLATELET VOLUME 8.9 fL (7.4-10.4); MONO % 10.5 %; NEUT % 65.6 %; PLATELET COUNT 262 K/uL (130-400); WHITE BLOOD COUNT 7.53 K/uL (4.8-10.8)
[2017-05-13 06:21] LABS: C-REACTIVE PROTEIN 12.6 mg/dl (0-0.29); CALCIUM 8.8 mg/dl (8.5-10.1); CREATININE 0.76 mg/dl (0.60-1.20); POTASSIUM 3.2 mmol/L (3.5-5.1)
[2017-05-13] MEDS ORDERED: VANCOMYCIN TROUGH SCH (07:30)
[2017-05-13] MEDS: HEPARIN 25,000 UNIT/500ML D5W 500 ML IV PRN (08:05)
[2017-05-13] MEDS: CARVEDILOL 3.125 MG TAB PO SCH ×2 (08:06→20:10)
[2017-05-13] MEDS: BACLOFEN 10 MG TAB PO SCH ×2 (08:07→20:09)
[2017-05-13] MEDS: GUAIFENESIN 600 MG TABCR PO SCH ×2 (08:07→20:09)
[2017-05-13] MEDS: LISINOPRIL 20 MG TAB PO SCH (08:07)
[2017-05-13] MEDS: CHOLECALCIFEROL 1000 INTER.UNIT TAB PO SCH (08:07)
[2017-05-13] MEDS: ASPIRIN 81 MG ECTAB PO SCH (08:07)
[2017-05-13] MEDS: CLONAZEPAM 0.5 MG TAB PO PRN ×2 (08:07→22:39)
[2017-05-13] MEDS: POLYETHYLENE (MIRALAX) 17 GM PACK PO PRN (08:07)
[2017-05-13] MEDS ORDERED: NURSING VERBAL MED ORDER ONE (08:30)
[2017-05-13] MEDS: PANTOprazole SOD 40 MG TAB PO SCH (09:44)
--- NOTE | 2017-05-13 10:04 | Family Medicine Progress Note ---
Progress Note Date of Service May 13, 2017. Subjective Pt evaluation today including: conversation w/ patient, physical exam, conversation w/ information resource consultant, review of inpatient medication list Pain: none PO Intake: good Voiding: no voiding problems Patient still feeling short of breath on exertion but her SOB has definitely improved. She is able to walk to the toilet without becoming short of breath. She is still having some chest tightness with deep inspiration but she says this has improved also. Still has a dry cough and says that her calves are both sore. She was found to have a DVT on doppler Still deciding between NOAC vs Warfarin for anticoagulation Constitutional: No fever, No chills Respiratory: + cough (dry), + dyspnea on exertion, No sputum, No dyspnea at rest Cardiovascular: No chest pain, No edema, No palpitations Abdomen: No pain, No nausea, No vomiting Medications Current Inpatient Medications Medications (Trade) Dose Ordered Sig/[place] Route Start Time Stop Time Status Last Admin Dose Admin Ioversol (Optiray 320) 125 ml UD PRN IV 05/11/17 14:00 05/15/17 13:59 Acetaminophen (Tylenol Tab) 650 mg Q4H PRN PO 05/11/17 16:15 06/10/17 16:14 05/11/17 23:41 650 MG Zolpidem Tartrate (Ambien Tab) 5 mg HSZ PRN PO 05/11/17 16:15 06/10/17 16:14 Nitroglycerin (Nitrostat Tab) 0.4 mg UD PRN SL 05/11/17 16:15 06/10/17 16:14 Aspirin (Ecotrin Tab) 81 mg QAM PO 05/12/17 09:00 06/11/17 08:59 05/13/17 08:07 81 MG Baclofen (Lioresal Tab) 10 mg BID PO 05/11/17 21:00 06/10/17 20:59 05/13/17 08:07 10 MG Carvedilol (Coreg Tab) 3.125 mg BID PO 05/11/17 21:00 06/10/17 20:59 05/13/17 08:06 3.125 MG Clonazepam (Klonopin Tab) 0.5 mg HS PRN PO 05/11/17 16:15 06/10/17 16:14 05/12/17 23:14 0.5 MG Clonazepam (Klonopin Tab) 0.5 mg QAM PRN PO 05/11/17 16:15 06/10/17 16:14 05/13/17 08:07 0.5 MG Lisinopril (Zestril Tab) 20 mg QAM PO 05/12/17 09:00 06/11/17 08:59 05/13/17 08:07 20 MG Rosuvastatin Calcium (Crestor Tab) 20 mg HS PO 05/11/17 21:00 06/10/17 20:59 05/12/17 21:25 20 MG Cholecalciferol (Vitamin D Tab) 2,000 inter.unit QAM PO 05/12/17 09:00 06/11/17 08:59 05/13/17 08:07 2,000 INTER.UNIT Ondansetron HCl (Zofran Inj) 4 mg Q6H PRN IV 05/11/17 16:15 06/10/17 16:14 Guaifenesin (Mucinex Contr Rel Tab) 600 mg Q12 PO 05/11/17 21:00 06/10/17 20:59 05/13/17 08:07 600 MG Ipratropium [place] (Atrovent 0.02% 0.5MG/2.5ML Neb) 0.5 mg Q6R INH 05/11/17 21:00 06/10/17 20:59 05/13/17 07:39 0.5 MG Levalbuterol (Xopenex 1.25MG/ 0.5ML Neb) 1.25 mg Q6R INH 05/11/17 21:00 06/10/17 20:59 05/13/17 07:39 1.25 MG Ipratropium [place] (Atrovent 0.02% 0.5MG/2.5ML Neb) 0.5 mg Q2H PRN INH 05/11/17 17:15 06/10/17 17:14 Levalbuterol (Xopenex 1.25MG/ 0.5ML Neb) 1.25 mg Q2H PRN INH 05/11/17 17:15 06/10/17 17:14 Heparin Sodium/ Dextrose 500 ml @ 23 mls/hr [id number] PRN IV 05/11/17 18:15 06/10/17 18:14 05/13/17 08:05 23 MLS/HR Polyethylene (Miralax Powder Packet) 17 gm DAILY PRN PO 05/12/17 17:45 06/11/17 17:44 05/13/17 08:07 17 GM Pantoprazole Sodium (Protonix Tab) 40 mg QAM PO 05/13/17 10:00 06/12/17 09:59 05/13/17 09:44 40 MG Ranitidine HCl (zANTac TAB) 150 mg QPM PO 05/13/17 21:00 06/12/17 20:59 Objective Vital Signs Date Time Temp Pulse Resp B/P (MAP) Pulse Ox O2 Delivery O2 Flow Rate FiO2 05/13/17 08:51 Room Air 05/13/17 07:50 36.8 89 20 147/81 (103) 95 Room Air 05/13/17 07:45 Room Air 05/13/17 07:40 76 12 96 Room Air 05/13/17 04:00 Room Air 05/13/17 03:52 36.7 88 20 119/78 (92) 92 Room Air 05/13/17 01:29 84 16 92 Room Air 05/13/17 00:00 Room Air 05/12/17 23:38 37.0 82 20 119/78 (92) 92 Room Air 05/12/17 20:05 Room Air 05/12/17 19:39 87 16 92 Room Air 05/12/17 19:36 36.8 94 22 121/75 (90) 91 Room Air 05/12/17 16:00 Room Air 05/12/17 15:43 36.7 94 20 119/76 (90) 93 Room Air 05/12/17 14:24 91 16 93 Room Air 05/12/17 12:30 Room Air 05/12/17 12:29 88 20 118/78 (91) 94 Physical Exam General Appearance: WD/WN, no apparent distress Neck: no JVD, no carotid bruits, trachea midline Respiratory/Chest: no respiratory distress, no accessory muscle use, + wheezing (very soft wheeze at RLL) Cardiovascular: regular rate, rhythm, no edema, no JVD, no murmur Abdomen: normal bowel sounds, non tender, soft Extremities: no pedal edema, normal capillary refill, + calf tenderness, + pertinent finding (R calf is tender to palpation, not warm, or erythematous) Neurologic/Psychiatric: no motor/sensory deficits, normal mood/affect, oriented x 3 Laboratory Results Results Past 24 Hours Test 05/12/17 12:31 05/13/17 05:17 Range/Units C-Reactive Protein 13.00 12.60 0-0.29 mg/dl Procalcitonin < 0.05 0-0.5 ng/ml White Blood Count 7.53 4.8-10.8 K/uL Red Blood Count 3.40 4.2-5.4 M/uL Hemoglobin 9.1 12.0-16.0 g/dL Hematocrit 29.8 37-47 % Mean Corpuscular Volume 87.6 80-100 fL Mean Corpuscular Hemoglobin 26.8 25-34 pg Mean Corpuscular Hemoglobin Concent 30.5 32-36 g/dl Platelet Count 262 130-400 K/uL Mean Platelet Volume 8.9 7.4-10.4 fL Neutrophils (%) (Auto) 65.6 % Lymphocytes (%) (Auto) 20.2 % Monocytes (%) (Auto) 10.5 % Eosinophils (%) (Auto) 2.7 % Basophils (%) (Auto) 0.7 % Neutrophils # (Auto) 4.95 1.4-6.5 K/uL Lymphocytes # (Auto) 1.52 1.2-3.4 K/uL Monocytes # (Auto) 0.79 0.11-0.59 K/uL Eosinophils # (Auto) 0.20 0-0.5 K/uL Basophils # (Auto) 0.05 0-0.2 K/uL RDW Standard Deviation 47.8 36.4-46.3 fL RDW Coefficient of Variation 14.8 11.5-14.5 % Immature Granulocyte % (Auto) 0.3 % Immature Granulocyte # (Auto) 0.02 0.00-0.02 K/uL Activated Partial Thromboplast Time 78.4 21.0-31.0 SECONDS Partial Thromboplastin Ratio 3.0 Sodium Level 144 136-145 mmol/L Potassium Level 3.2 3.5-5.1 mmol/L Chloride Level 111 98-107 mmol/L Carbon Dioxide Level 25 21-32 mmol/L Anion Gap 8.0 3-11 mmol/L Blood Urea Nitrogen 6 7-18 mg/dl Creatinine 0.76 0.60-1.20 mg/dl Est Creatinine Clear Calc Drug Dose 76.6 ml/min Estimated GFR () 91.5 Estimated GFR (Non- 78.9 BUN/Creatinine Ratio 8.0 10-20 Random Glucose 103 70-99 mg/dl Calcium Level 8.8 8.5-10.1 mg/dl Assessment and Plan 72 year old female with acute PE's that was started on heparin and is deciding which anticoagulant she wants to start PE - on heparin gtt - deciding if she wants to be on coumadin or NOAC, discussed pro's and cons of both options, Med Student going to bring her information on the two of them RLL consolidation - no fever and WCC - CRP elevated but procalcitonin negative - AB's have been stopped and patient has had no infectious symptoms overnight Valvular heart disease - bovine aortic valve - outpatient f/u [place] - outpt f/u w [facility] HTN - aspirin, carvedilol, lisinopril and HCTZ held HLD - rosuvastatin Muscle spasm - baclofen Insomnia - melatonin Dispo - encourage ambulation today and walk around halls, patients SOB will improve with time. She is close to being back to baseline but still appears short of breath when talking to me so would be adequate to continue monitoring her as we start an anticoagulant today Resident Physician Supervision Note: I interviewed and examined the patient. Discussed with Dr. Marlow and agree with findings and plan as documented in the note. 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 discussed coumadin vs NOAC in depth and in detail and answered all questions to the best of my ability. she thinks she wants coumadin all other ROS otherwise negative except for as above vitals noted nad breathing unlabored no pallor or icterus provoked PEs - heparin --> coumadin for now. doing better otherwise as above Continued [facility] [place] stay due to: ambulation difficulties
[2017-05-13 13:30] LABS: PARTIAL THROMBOPLASTIN RATIO 2.1
[2017-05-13] MEDS: ACETAMINOPHEN 325 MG TAB PO PRN (19:16)
[2017-05-13] MEDS ORDERED: POTASSIUM CHLORIDE 10 MEQ TABCR PO ONE (19:30)
[2017-05-13] MEDS ORDERED: WARFARIN SOD 5 MG TAB PO ONE (19:45)
[2017-05-13] MEDS: ROSUVASTATIN CALCIUM 20 MG TAB PO SCH (20:10)
[2017-05-13] MEDS ORDERED: RANITIDINE HCL 150 MG TAB PO SCH (21:00)
--- NOTE | 2017-05-13 21:57 | Medical Student: [facility] ---
Med Student Progress Note Date of Service May 13, 2017. Subjective Pt evaluation today including: conversation w/ patient, conversation w/ family () Mrs. Madsen is a 72 year old female with a PMH significant for PE after knee surgery & not on currently on anticoagulation, Smith's esophagus, endocervical polyp, HTN, patellar tendonitis, and bovine aortic valve replacement on 04/11/2017 who presented on 05/11/2017 for SOB. Her SOB and chest tightness is improved today. She continues to be sating in the low 90s on RA. All other vitals are WNL. She denies CROCKETT, abdominal pain, diarrhea, constipation , or weakness. 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 She will consider her options today. Review of Systems Constitutional: No fever, No chills Eyes: No worsening of vision ENT: No hearing loss Respiratory: + shortness of breath, No cough, No sputum, No wheezing Cardiac: + chest pain (tightness), No edema, No palpitations Abdomen: No pain, No nausea, No vomiting, No diarrhea, No constipation Musculoskeletal: No joint pain Female : No dysuria, No urinary frequency, No hematuria Endo: No fatigue Skin: No rash, No itch Objective Vital Signs Date Time Temp Pulse Resp B/P (MAP) Pulse Ox O2 Delivery O2 Flow Rate FiO2 05/13/17 20:02 Room Air 05/13/17 19:48 36.7 92 20 138/80 (99) 91 Room Air 05/13/17 19:47 79 16 96 Room Air 05/13/17 16:00 Room Air 05/13/17 15:37 36.5 94 20 138/85 (102) 93 Room Air 05/13/17 14:34 77 12 96 Room Air 05/13/17 12:30 Room Air 05/13/17 11:45 77 12 96 Room Air 05/13/17 11:22 36.6 91 18 120/70 (87) 93 Room Air 05/13/17 08:51 Room Air 05/13/17 07:50 36.8 89 20 147/81 (103) 95 Room Air 05/13/17 07:45 Room Air 05/13/17 07:40 76 12 96 Room Air 05/13/17 04:00 Room Air 05/13/17 03:52 36.7 88 20 119/78 (92) 92 Room Air 05/13/17 01:29 84 16 92 Room Air 05/13/17 00:00 Room Air 05/12/17 23:38 37.0 82 20 119/78 (92) 92 Room Air Physical Exam General Appearance: WD/WN, no apparent distress Eyes: bilateral eyes normal inspection, bilateral eyes PERRL, bilateral eyes EOMI ENT: normal ENT inspection, hearing grossly normal Neck: supple, no adenopathy, thyroid normal Respiratory/Chest: lungs clear, normal breath sounds, no respiratory distress Cardiovascular: regular rate, rhythm, no edema, no gallop, no murmur Abdomen: normal bowel sounds, non tender, soft, no organomegaly Extremities: no pedal edema, no calf tenderness, normal capillary refill Neurologic/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, no motor/sensory deficits Skin: normal color, warm/dry, no rash Lymphatic: no adenopathy Laboratory Results Last 24 Hours Test 05/13/17 05:17 05/13/17 12:47 White Blood Count 7.53 K/uL Red Blood Count 3.40 M/uL Hemoglobin 9.1 g/dL Hematocrit 29.8 % Mean Corpuscular Volume 87.6 fL Mean Corpuscular Hemoglobin 26.8 pg Mean Corpuscular Hemoglobin Concent 30.5 g/dl Platelet Count 262 K/uL Mean Platelet Volume 8.9 fL Neutrophils (%) (Auto) 65.6 % Lymphocytes (%) (Auto) 20.2 % Monocytes (%) (Auto) 10.5 % Eosinophils (%) (Auto) 2.7 % Basophils (%) (Auto) 0.7 % Neutrophils # (Auto) 4.95 K/uL Lymphocytes # (Auto) 1.52 K/uL Monocytes # (Auto) 0.79 K/uL Eosinophils # (Auto) 0.20 K/uL Basophils # (Auto) 0.05 K/uL RDW Standard Deviation 47.8 fL RDW Coefficient of Variation 14.8 % Immature Granulocyte % (Auto) 0.3 % Immature Granulocyte # (Auto) 0.02 K/uL Activated Partial Thromboplast Time 78.4 SECONDS 53.6 SECONDS Partial Thromboplastin Ratio 3.0 2.1 Sodium Level 144 mmol/L Potassium Level 3.2 mmol/L Chloride Level 111 mmol/L Carbon Dioxide Level 25 mmol/L Anion Gap 8.0 mmol/L Blood Urea Nitrogen 6 mg/dl Creatinine 0.76 mg/dl Est Creatinine Clear Calc Drug Dose 76.6 ml/min Estimated GFR () 91.5 Estimated GFR (Non- 78.9 BUN/Creatinine Ratio 8.0 Random Glucose 103 mg/dl Calcium Level 8.8 mg/dl C-Reactive Protein 12.60 mg/dl Assessment and Plan Assessment and Plan: Assessment: Mrs. Madsen is a 72 year old female with a PMH significant for PE after knee surgery & not on currently on anticoagulation, Smith's esophagus, endocervical polyp, HTN, patellar tendonitis, and bovine aortic valve replacement on 04/11/2017 who presented on 05/11/2017 for SOB. Since admission, the patient has remained afebrile and has been sating in the low 90s on RA. Serial troponins and CK-MB were negative. UA was negative for infection. ECG shows RBBB with no evidence of ischemia. CXR shows a possible consolidation in the right lung base with effusion. Chest CTA shows segmental and subsegmental PEs within branches of the left lower lobe pulmonary artery, induration of the right ventral chest wall indicative of fluid collection in the anterior mediastinum, pericardial effusion, and right pleural effusion & consolidation. b /l LE venous doppler shows a right peroneal vein DVT and superficial thrombus within the right gastrocnemius. It also showed a 4.1 cm x 3 cm x 4.8 cm left groin cyst over the anterior left common femoral artery. This is indicative of evolving hematoma from recent groin catheterization. Although CXR and chest CTA indicate consolidation, clinically, the patient does not appear to have pneumonia. She has remained afebrile and WBC count has been normal since admission. Clinically, the patient does appear to have left lower lobe PE's consistent with chest CTA. Plan: Left lower lobe pulmonary emboli - Patient's SOB is improving, but she continues to be sating in the low 90's on RA. CTA is consistent with left lower lobe PEs and patient's recent history of bovine AVR on 04/11 and finding of right lower extremity DVT suggests a provoked PE. -PTT therapeutic at 53.6 -continue therapeutic IV heparin/dextrose 500 mL @ 23cc/hr -Warfarin 10 mg PO once, start Warfarin 5 mg PO daily in anticipation of outpatient discharge anticoagulation -continue Ipratropium nebulizer 0.5 mg q6hr -continue levalbuterol 1.25 mg q6hr -continue guaifenesin 600 mg BID -continue Nitro 0.4 mg PRN for chest pain Right lower lobe pneumonia - Although CXR and chest CTA suggest consolidation in the right lower lobe, the patient clinically does not appear to have pneumonia. Since admission, she has remained afebrile and has had no leukocytosis -CRP decreased from 13 to 12.6 & Procalcitonin <0.05 - not suggestive of infectious process -MRSA nares negative -d/c Vancomycin & Zosyn -re-evaluate patient's clinical status AM Bovine AVR -f/u outpatient in [place] -left groin cyst found on b/l LE venous doppler, no pain and not concerning at this time -fluid collection of anterior mediastinum found on chest CTA, no pain and most likely post-op hematoma from surgical port, not concerning at this time HTN -Aspirin 81 mg PO -Carvedilol 3.125 mg PO BID -Lisinopril 20 mg PO -HCTZ 25 mg PO HLD -Rosuvastatin 20 mg PO Muscle Spasm -Baclofen 10 mg PO Constipation -Miralax 17 g Anxiety -Klonopin 0.5 mg PRN GI Prophylaxis: Ranitidine 150 mg PO daily & Protonix 40 mg PO daily Continued [facility] stay due to: ambulation difficulties
[2017-05-14] VITALS (9 sets, daily range): BP systolic 108–126; BP diastolic 70–80; PULSE 76–96; TEMP 36.5–36.6; O2SAT 92–97
[2017-05-14] MEDS: LEVALBUTEROL 1.25MG/0.5ML NEB INH SCH ×3 (01:55→14:42)
[2017-05-14] MEDS: IPRATROPIUM BROMIDE NEB SOLN 0.02% 2.5 ML VIAL INH SCH ×3 (01:55→14:42)
[2017-05-14] MEDS: HEPARIN 25,000 UNIT/500ML D5W 500 ML IV PRN (04:35)
[2017-05-14 06:09] LABS: BASO ABS # 0.06 K/uL (0-0.2); EOS % 6.7 %; HEMATOCRIT 27.4 % (37-47); IG% 0.3 %; LYMPH % 21.3 %; LYMPH ABS # 1.34 K/uL (1.2-3.4); MEAN CELL VOLUME 88.7 fL (80-100); MEAN CORPUSCULAR HEMOGLOBIN 27.5 pg (25-34); MEAN PLATELET VOLUME 8.8 fL (7.4-10.4); MONO % 10.8 %; NEUT % 59.9 %; PLATELET COUNT 245 K/uL (130-400); RED BLOOD COUNT 3.09 M/uL (4.2-5.4); WHITE BLOOD COUNT 6.29 K/uL (4.8-10.8)
[2017-05-14 06:21] LABS: INR 1.1 (0.9-1.1); PARTIAL THROMBOPLASTIN RATIO 2.2; PROTHROMBIN TIME (PATIENT) 11.6 SECONDS (9.0-12.0)
[2017-05-14 06:35] LABS: COMPLETE YES; HYPERSEGMENTED POLYS 1+
[2017-05-14 06:45] LABS: BUN/CREATININE RATIO 11.2 (10-20); CALCIUM 8.7 mg/dl (8.5-10.1); CREATININE 0.74 mg/dl (0.60-1.20); POTASSIUM 3.8 mmol/L (3.5-5.1)
[2017-05-14] MEDS: BACLOFEN 10 MG TAB PO SCH ×2 (07:57→16:52)
[2017-05-14] MEDS: ASPIRIN 81 MG ECTAB PO SCH (07:57)
[2017-05-14] MEDS: GUAIFENESIN 600 MG TABCR PO SCH ×2 (07:57→21:50)
[2017-05-14] MEDS: CARVEDILOL 3.125 MG TAB PO SCH ×2 (07:57→21:51)
[2017-05-14] MEDS: PANTOprazole SOD 40 MG TAB PO SCH (07:57)
[2017-05-14] MEDS: CHOLECALCIFEROL 1000 INTER.UNIT TAB PO SCH (07:58)
[2017-05-14] MEDS: LISINOPRIL 20 MG TAB PO SCH (07:58)
[2017-05-14] MEDS: CLONAZEPAM 0.5 MG TAB PO PRN ×2 (07:58→22:02)
[2017-05-14] MEDS: POLYETHYLENE (MIRALAX) 17 GM PACK PO PRN (08:00)
--- NOTE | 2017-05-14 08:57 | Clinical Documentation Query ---
CLINICAL DOCUMENTATION QUERY 72 year old female who presents to the Emergency Room with complaints of constant shortness of breath. She was found to have PE's and DVT's. Cardiology has stated this patient as having heterozygous prothrombin gene mutation. In your clinical opinion is this patient being managed for: ( ) PE and DVT due to Heterozygous prothrombin gene mutation ( ) Not Agree Please clarify and document your clinical opinion in the progress notes and discharge summary. Terms such as "probable", "suspected", "likely", "questionable", "possible", or "still to be ruled out" are acceptable. IF IN AGREEMENT, YOU MUST DOCUMENT ABOVE DIAGNOSTIC STATEMENT IN DAILY PROGRESS NOTES AND DISCHARGE SUMMARY. This document is not part of the patient's record. Thank You, Ubaldo Krishnan, RN [phone]
--- NOTE | 2017-05-14 10:22 | Cardiology Follow-Up ---
Subjective Subjective Date of Service: May 14, 2017. Pt evaluation today including: conversation w/ patient, physical exam, chart review, lab review, review of studies, review of inpatient medication list Additional Details: Breathing improving. Still with some episodes of "tightness" Also endorses some anxiety about continued stay in hospital Problem List Medical Problems: (1) Acute diverticulitis Status: Acute (2) Back pain Status: Acute (3) Pulmonary emboli Status: Acute (4) Shortness of breath Status: Acute Review of Systems Constitutional: No fever Eyes: No worsening of vision ENT: No hearing loss Respiratory: + shortness of breath, No cough Cardiac: + chest pain (tightness), No edema, No palpitations Abdomen: No pain, No nausea, No vomiting Endo: No fatigue Skin: No rash Objective Vital Signs Last Vital Signs Documentation Date Time Temp Pulse Resp B/P (MAP) Pulse Ox O2 Delivery O2 Flow Rate FiO2 05/14/17 07:28 36.6 82 18 112/76 (88) 93 05/14/17 07:20 Room Air 05/13/17 23:33 2.0 Physical Exam: General Appearance: no apparent distress Eyes: bilateral eyes normal inspection, bilateral eyes PERRL, bilateral eyes EOMI ENT: hearing grossly normal Neck: supple, no JVD Respiratory/Chest: no respiratory distress, + decreased breath sounds (at right base with few crackles) Cardiovascular: regular rate, rhythm, no edema, no murmur, + pertinent finding (crisp bioprosthetic closure sound) Abdomen: normal bowel sounds, non tender, soft Extremities: no calf tenderness, normal capillary refill, + pertinent finding ( trace RLE swelling) 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 Small segmental/subsegmental PEs, distal DVT--history of prior VTE, heterozygous prothrombin gene mutation 2. Right pleural effusion/atelectasis 3. Status post recent minimally invasive AVR for severe aortic stenosis 4. Hypertension 5. Anemia Symptoms improving, oxygenating well. Choice of anticoagulation agent going forward again discussed --Agree with transition to coumadin. INR can be followed by Dr. Barker or our office as an outpatient. --No other changes to cardiac regimen. From cardiac standpoint OK for discharge when other medical issues, outpatient anticoagulation resolved. Continued [facility] stay due to: ambulation difficulties Medications: Current Inpatient Medications Medications (Trade) Dose Ordered Sig/[place]ora Route Start Time Stop Time Status Last Admin Dose Admin Ioversol (Optiray 320) 125 ml UD PRN IV 05/11/17 14:00 05/15/17 13:59 Acetaminophen (Tylenol Tab) 650 mg Q4H PRN PO 05/11/17 16:15 06/10/17 16:14 05/13/17 19:16 650 MG Zolpidem Tartrate (Ambien Tab) 5 mg HSZ PRN PO 05/11/17 16:15 06/10/17 16:14 Nitroglycerin (Nitrostat Tab) 0.4 mg UD PRN SL 05/11/17 16:15 06/10/17 16:14 Aspirin (Ecotrin Tab) 81 mg QAM PO 05/12/17 09:00 06/11/17 08:59 05/14/17 07:57 81 MG Baclofen (Lioresal Tab) 10 mg BID PO 05/11/17 21:00 06/10/17 20:59 05/14/17 07:57 10 MG Carvedilol (Coreg Tab) 3.125 mg BID PO 05/11/17 21:00 06/10/17 20:59 05/14/17 07:57 3.125 MG Clonazepam (Klonopin Tab) 0.5 mg HS PRN PO 05/11/17 16:15 06/10/17 16:14 05/13/17 22:39 0.5 MG Clonazepam (Klonopin Tab) 0.5 mg QAM PRN PO 05/11/17 16:15 06/10/17 16:14 05/14/17 07:58 0.5 MG Lisinopril (Zestril Tab) 20 mg QAM PO 05/12/17 09:00 06/11/17 08:59 05/14/17 07:58 20 MG Rosuvastatin Calcium (Crestor Tab) 20 mg HS PO 05/11/17 21:00 06/10/17 20:59 05/13/17 20:10 20 MG Cholecalciferol (Vitamin D Tab) 2,000 inter.unit QAM PO 05/12/17 09:00 06/11/17 08:59 05/14/17 07:58 2,000 INTER.UNIT Ondansetron HCl (Zofran Inj) 4 mg Q6H PRN IV 05/11/17 16:15 06/10/17 16:14 05/13/17 19:16 4 MG Guaifenesin (Mucinex Contr Rel Tab) 600 mg Q12 PO 05/11/17 21:00 06/10/17 20:59 05/14/17 07:57 600 MG Ipratropium Malone (Atrovent 0.02% 0.5MG/2.5ML Neb) 0.5 mg Q6R INH 05/11/17 21:00 06/10/17 20:59 05/14/17 07:27 0.5 MG Levalbuterol (Xopenex 1.25MG/ 0.5ML Neb) 1.25 mg Q6R INH 05/11/17 21:00 06/10/17 20:59 05/14/17 07:26 1.25 MG Ipratropium Malone (Atrovent 0.02% 0.5MG/2.5ML Neb) 0.5 mg Q2H PRN INH 05/11/17 17:15 06/10/17 17:14 05/13/17 11:45 0.5 MG Levalbuterol (Xopenex 1.25MG/ 0.5ML Neb) 1.25 mg Q2H PRN INH 05/11/17 17:15 06/10/17 17:14 05/13/17 11:44 1.25 MG Heparin Sodium/ Dextrose 500 ml @ 23 mls/hr [id number] PRN IV 05/11/17 18:15 06/10/17 18:14 05/14/17 04:35 23 MLS/HR Polyethylene (Miralax Powder Packet) 17 gm DAILY PRN PO 05/12/17 17:45 06/11/17 17:44 05/14/17 08:00 17 GM Pantoprazole Sodium (Protonix Tab) 40 mg QAM PO 05/13/17 10:00 06/12/17 09:59 05/14/17 07:57 40 MG Ranitidine HCl (zANTac TAB) 150 mg QPM PO 05/13/17 21:00 06/12/17 20:59 05/13/17 20:09 150 MG Warfarin Sodium (Coumadin Tab) 5 mg DAILY@16 PO 05/14/17 16:00 06/13/17 15:59 Lab Results: 05/14/17 05:47 Red Blood Count 3.09, Mean Corpuscular Volume 88.7, Mean Corpuscular Hemoglobin 27.5, Mean Corpuscular Hemoglobin Concent 31.0, Mean Platelet Volume 8.8, Neutrophils (%) (Auto) 59.9, Lymphocytes (%) (Auto) 21.3, Monocytes (%) (Auto) 10.8, Eosinophils (%) (Auto) 6.7, Basophils (%) (Auto) 1.0, Neutrophils # (Auto ) 3.77, Lymphocytes # (Auto) 1.34, Monocytes # (Auto) 0.68, Eosinophils # (Auto ) 0.42, Basophils # (Auto) 0.06 05/14/17 05:47 Test 05/14/17 05:47 White Blood Count 6.29 K/uL (4.8-10.8) Red Blood Count 3.09 M/uL (4.2-5.4) Hemoglobin 8.5 g/dL (12.0-16.0) Hematocrit 27.4 % (37-47) Mean Corpuscular Volume 88.7 fL (80-100) Mean Corpuscular Hemoglobin 27.5 pg (25-34) Mean Corpuscular Hemoglobin Concent 31.0 g/dl (32-36) Platelet Count 245 K/uL (130-400) Mean Platelet Volume 8.8 fL (7.4-10.4) Neutrophils (%) (Auto) 59.9 % Lymphocytes (%) (Auto) 21.3 % Monocytes (%) (Auto) 10.8 % Eosinophils (%) (Auto) 6.7 % Basophils (%) (Auto) 1.0 % Neutrophils # (Auto) 3.77 K/uL (1.4-6.5) Lymphocytes # (Auto) 1.34 K/uL (1.2-3.4) Monocytes # (Auto) 0.68 K/uL (0.11-0.59) Eosinophils # (Auto) 0.42 K/uL (0-0.5) Basophils # (Auto) 0.06 K/uL (0-0.2) RDW Standard Deviation 48.6 fL (36.4-46.3) RDW Coefficient of Variation 14.9 % (11.5-14.5) Immature Granulocyte % (Auto) 0.3 % Immature Granulocyte # (Auto) 0.02 K/uL (0.00-0.02) Hypersegmented Polys 1+ Prothrombin Time 11.6 SECONDS (9.0-12.0) Prothromb Time International Ratio 1.1 (0.9-1.1) Activated Partial Thromboplast Time 57.7 SECONDS (21.0-31.0) Partial Thromboplastin Ratio 2.2 Anion Gap 7.0 mmol/L (3-11) Est Creatinine Clear Calc Drug Dose 81.4 ml/min Estimated GFR () 94.5 Estimated GFR (Non- 81.5 BUN/Creatinine Ratio 11.2 (10-20) Calcium Level 8.7 mg/dl (8.5-10.1)
[2017-05-14] MEDS ORDERED: IPRATROPIUM BROMIDE HFA INHALER INH PRN (15:15)
[2017-05-14] MEDS ORDERED: LEValbuterol HFA 15GM INHALER INH PRN (15:15)
[2017-05-14] MEDS ORDERED: NURSING VERBAL MED ORDER ONE (15:30)
[2017-05-14] MEDS ORDERED: WARFARIN SOD 5 MG TAB PO SCH (16:00)
[2017-05-14] MEDS ORDERED: RANITIDINE HCL 150 MG TAB PO SCH (16:00)
[2017-05-14] MEDS: ACETAMINOPHEN 325 MG TAB PO PRN (16:18)
--- NOTE | 2017-05-14 16:39 | Family Medicine Progress Note ---
Progress Note Date of Service May 14, 2017. Subjective Pt evaluation today including: conversation w/ patient, physical exam, chart review, conversation w/ practice management consultant, review of inpatient medication list Pain: none PO Intake: good Shortness of breath improved Still feeling tight with deep breath Having a lot of anxiety about going home Constitutional: No fever, No chills Respiratory: + cough, No sputum, No shortness of breath, No dyspnea on exertion Cardiovascular: No chest pain, No edema, No palpitations Abdomen: No pain, No nausea, No vomiting, No diarrhea, No constipation Medications Current Inpatient Medications Medications (Trade) Dose Ordered Sig/[place] Route Start Time Stop Time Status Last Admin Dose Admin Ioversol (Optiray 320) 125 ml UD PRN IV 05/11/17 14:00 05/15/17 13:59 Acetaminophen (Tylenol Tab) 650 mg Q4H PRN PO 05/11/17 16:15 06/10/17 16:14 05/14/17 16:18 650 MG Zolpidem Tartrate (Ambien Tab) 5 mg HSZ PRN PO 05/11/17 16:15 06/10/17 16:14 Nitroglycerin (Nitrostat Tab) 0.4 mg UD PRN SL 05/11/17 16:15 06/10/17 16:14 Aspirin (Ecotrin Tab) 81 mg QAM PO 05/12/17 09:00 06/11/17 08:59 05/14/17 07:57 81 MG Carvedilol (Coreg Tab) 3.125 mg BID PO 05/11/17 21:00 06/10/17 20:59 05/14/17 07:57 3.125 MG Clonazepam (Klonopin Tab) 0.5 mg HS PRN PO 05/11/17 16:15 06/10/17 16:14 05/13/17 22:39 0.5 MG Clonazepam (Klonopin Tab) 0.5 mg QAM PRN PO 05/11/17 16:15 06/10/17 16:14 05/14/17 07:58 0.5 MG Lisinopril (Zestril Tab) 20 mg QAM PO 05/12/17 09:00 06/11/17 08:59 05/14/17 07:58 20 MG Rosuvastatin Calcium (Crestor Tab) 20 mg HS PO 05/11/17 21:00 06/10/17 20:59 05/13/17 20:10 20 MG Cholecalciferol (Vitamin D Tab) 2,000 inter.unit QAM PO 05/12/17 09:00 06/11/17 08:59 05/14/17 07:58 2,000 INTER.UNIT Ondansetron HCl (Zofran Inj) 4 mg Q6H PRN IV 05/11/17 16:15 06/10/17 16:14 05/13/17 19:16 4 MG Guaifenesin (Mucinex Contr Rel Tab) 600 mg Q12 PO 05/11/17 21:00 06/10/17 20:59 05/14/17 07:57 600 MG Heparin Sodium/ Dextrose 500 ml @ 23 mls/hr [id number] PRN IV 05/11/17 18:15 06/10/17 18:14 05/14/17 04:35 23 MLS/HR Polyethylene (Miralax Powder Packet) 17 gm DAILY PRN PO 05/12/17 17:45 06/11/17 17:44 05/14/17 08:00 17 GM Pantoprazole Sodium (Protonix Tab) 40 mg QAM PO 05/13/17 10:00 06/12/17 09:59 05/14/17 07:57 40 MG Warfarin Sodium (Coumadin Tab) 5 mg DAILY@16 PO 05/14/17 16:00 06/13/17 15:59 05/14/17 16:17 5 MG Ipratropium [place] (Atrovent Hfa Inhaler) 2 puffs Q6 INH 05/14/17 18:00 06/13/17 17:59 Levalbuterol (Xopenex Hfa Inhaler) 2 puffs Q6 INH 05/14/17 18:00 06/13/17 17:59 Ipratropium [place] (Atrovent Hfa Inhaler) 2 puffs Q2H PRN INH 05/14/17 15:15 06/13/17 15:14 Levalbuterol (Xopenex Hfa Inhaler) 2 puffs Q2H PRN INH 05/14/17 15:15 06/13/17 15:14 Baclofen (Lioresal Tab) 10 mg DAILY@0900,1600 PO 05/14/17 16:00 06/10/17 20:59 Ranitidine HCl (zANTac TAB) 150 mg DAILY@1600 PO 05/14/17 16:00 06/12/17 20:59 05/14/17 16:18 150 MG Objective Vital Signs Date Time Temp Pulse Resp B/P (MAP) Pulse Ox O2 Delivery O2 Flow Rate FiO2 05/14/17 16:00 Room Air 05/14/17 15:48 36.5 84 20 126/80 (95) 94 Room Air 05/14/17 14:54 83 16 93 Room Air 05/14/17 10:21 96 93 05/14/17 08:31 Room Air 05/14/17 07:45 Room Air 05/14/17 07:28 36.6 82 18 112/76 (88) 93 05/14/17 07:20 82 16 92 Room Air 05/14/17 05:07 36.5 79 17 126/76 (93) 93 Room Air 05/14/17 04:00 Room Air 05/14/17 01:55 89 16 94 Room Air 05/14/17 00:00 Room Air 05/13/17 23:33 36.5 76 16 106/64 (78) 91 Nasal Cannula 2.0 05/13/17 20:02 Room Air 05/13/17 19:48 36.7 92 20 138/80 (99) 91 Room Air 05/13/17 19:47 79 16 96 Room Air Physical Exam General Appearance: WD/WN, no apparent distress Respiratory/Chest: lungs clear, no respiratory distress, no accessory muscle use Cardiovascular: regular rate, rhythm, no JVD, + systolic murmur (2/6 murmur radiating to her carotids) Abdomen: normal bowel sounds, non tender, soft Extremities: non-tender, no calf tenderness, normal capillary refill Laboratory Results Results Past 24 Hours Test 05/14/17 05:47 Range/Units White Blood Count 6.29 4.8-10.8 K/uL Red Blood Count 3.09 4.2-5.4 M/uL Hemoglobin 8.5 12.0-16.0 g/dL Hematocrit 27.4 37-47 % Mean Corpuscular Volume 88.7 80-100 fL Mean Corpuscular Hemoglobin 27.5 25-34 pg Mean Corpuscular Hemoglobin Concent 31.0 32-36 g/dl Platelet Count 245 130-400 K/uL Mean Platelet Volume 8.8 7.4-10.4 fL Neutrophils (%) (Auto) 59.9 % Lymphocytes (%) (Auto) 21.3 % Monocytes (%) (Auto) 10.8 % Eosinophils (%) (Auto) 6.7 % Basophils (%) (Auto) 1.0 % Neutrophils # (Auto) 3.77 1.4-6.5 K/uL Lymphocytes # (Auto) 1.34 1.2-3.4 K/uL Monocytes # (Auto) 0.68 0.11-0.59 K/uL Eosinophils # (Auto) 0.42 0-0.5 K/uL Basophils # (Auto) 0.06 0-0.2 K/uL RDW Standard Deviation 48.6 36.4-46.3 fL RDW Coefficient of Variation 14.9 11.5-14.5 % Immature Granulocyte % (Auto) 0.3 % Immature Granulocyte # (Auto) 0.02 0.00-0.02 K/uL Hypersegmented Polys 1+ Prothrombin Time 11.6 9.0-12.0 SECONDS Prothromb Time International Ratio 1.1 0.9-1.1 Activated Partial Thromboplast Time 57.7 21.0-31.0 SECONDS Partial Thromboplastin Ratio 2.2 Sodium Level 145 136-145 mmol/L Potassium Level 3.8 3.5-5.1 mmol/L Chloride Level 114 98-107 mmol/L Carbon Dioxide Level 24 21-32 mmol/L Anion Gap 7.0 3-11 mmol/L Blood Urea Nitrogen 8 7-18 mg/dl Creatinine 0.74 0.60-1.20 mg/dl Est Creatinine Clear Calc Drug Dose 81.4 ml/min Estimated GFR () 94.5 Estimated GFR (Non- 81.5 BUN/Creatinine Ratio 11.2 10-20 Random Glucose 96 70-99 mg/dl Calcium Level 8.7 8.5-10.1 mg/dl Assessment and Plan 72 year old female with acute PE's that was started on heparin and is deciding which anticoagulant she wants to start PE - on heparin gtt---> will stop at 5am tomorrow and switch to lovenox - decided that she wants to start coumadin. started 5mg PO daily--> will continue to monitor INR - patient has been encouraged to walk around the halls today RLL consolidation - no fever and WCC - CRP elevated but procalcitonin negative - AB's have been stopped and patient has had no infectious symptoms overnight Valvular heart disease - bovine aortic valve - outpatient f/u at [facility] - outpt f/u w [facility] HTN - aspirin, carvedilol, lisinopril and HCTZ held HLD - rosuvastatin Muscle spasm - baclofen Insomnia - melatonin Dispo - transfer off telemetry - home tomorrow Resident Physician Supervision Note: I interviewed and examined the patient. Discussed with Dr. Marlow and agree with findings and plan as documented in the note. Any exceptions or clarifications are listed here: None Documented By: Nahun Henry feeling better still anxious breathing improved. vitals noted nad breathing unlabored no pallor or icterus recurrent PE - lovenox --> coumadin (heparin to stop in AM, lovenox to start) anticipate home in AM Continued [facility] stay due to: multiple IV medications needed
--- NOTE | 2017-05-14 18:04 | Medical Student: [facility] ---
Med Student Progress Note Date of Service May 14, 2017. Subjective Pt evaluation today including: conversation w/ patient No acute events overnight. SOB and chest tightness improving. Patient is ambulating around the floor with family and PT. Denies CROCKETT, abdominal pain, diarrhea or constipation. Review of Systems Constitutional: No fever, No chills, No sweats Eyes: No worsening of vision ENT: No hearing loss Respiratory: + shortness of breath, No cough, No sputum, No wheezing Cardiac: + chest pain (tightness), No edema, No palpitations Abdomen: No pain, No nausea, No vomiting, No diarrhea, No constipation Musculoskeletal: No joint pain Female : No dysuria Endo: No fatigue Skin: No rash, No itch Objective Vital Signs Date Time Temp Pulse Resp B/P (MAP) Pulse Ox O2 Delivery O2 Flow Rate FiO2 05/14/17 16:00 Room Air 05/14/17 15:48 36.5 84 20 126/80 (95) 94 Room Air 05/14/17 14:54 83 16 93 Room Air 05/14/17 10:21 96 93 05/14/17 08:31 Room Air 05/14/17 07:45 Room Air 05/14/17 07:28 36.6 82 18 112/76 (88) 93 05/14/17 07:20 82 16 92 Room Air 05/14/17 05:07 36.5 79 17 126/76 (93) 93 Room Air 05/14/17 04:00 Room Air 05/14/17 01:55 89 16 94 Room Air 05/14/17 00:00 Room Air 05/13/17 23:33 36.5 76 16 106/64 (78) 91 Nasal Cannula 2.0 05/13/17 20:02 Room Air 05/13/17 19:48 36.7 92 20 138/80 (99) 91 Room Air 05/13/17 19:47 79 16 96 Room Air Physical Exam General Appearance: WD/WN, no apparent distress Eyes: bilateral eyes normal inspection, bilateral eyes PERRL, bilateral eyes EOMI ENT: normal ENT inspection Neck: supple, no adenopathy Respiratory/Chest: lungs clear, normal breath sounds, no accessory muscle use Cardiovascular: regular rate, rhythm, no edema, no gallop, no JVD, no murmur Abdomen: normal bowel sounds, non tender, soft, no organomegaly Extremities: normal inspection, no pedal edema, no calf tenderness Neurologic/Psychiatric: [employer] operations duty manager II-XII nml as tested, no motor/sensory deficits Skin: normal color, warm/dry, no rash Laboratory Results Last 24 Hours Test 05/14/17 05:47 White Blood Count 6.29 K/uL Red Blood Count 3.09 M/uL Hemoglobin 8.5 g/dL Hematocrit 27.4 % Mean Corpuscular Volume 88.7 fL Mean Corpuscular Hemoglobin 27.5 pg Mean Corpuscular Hemoglobin Concent 31.0 g/dl Platelet Count 245 K/uL Mean Platelet Volume 8.8 fL Neutrophils (%) (Auto) 59.9 % Lymphocytes (%) (Auto) 21.3 % Monocytes (%) (Auto) 10.8 % Eosinophils (%) (Auto) 6.7 % Basophils (%) (Auto) 1.0 % Neutrophils # (Auto) 3.77 K/uL Lymphocytes # (Auto) 1.34 K/uL Monocytes # (Auto) 0.68 K/uL Eosinophils # (Auto) 0.42 K/uL Basophils # (Auto) 0.06 K/uL RDW Standard Deviation 48.6 fL RDW Coefficient of Variation 14.9 % Immature Granulocyte % (Auto) 0.3 % Immature Granulocyte # (Auto) 0.02 K/uL Hypersegmented Polys 1+ Prothrombin Time 11.6 SECONDS Prothromb Time International Ratio 1.1 Activated Partial Thromboplast Time 57.7 SECONDS Partial Thromboplastin Ratio 2.2 Sodium Level 145 mmol/L Potassium Level 3.8 mmol/L Chloride Level 114 mmol/L Carbon Dioxide Level 24 mmol/L Anion Gap 7.0 mmol/L Blood Urea Nitrogen 8 mg/dl Creatinine 0.74 mg/dl Est Creatinine Clear Calc Drug Dose 81.4 ml/min Estimated GFR () 94.5 Estimated GFR (Non- 81.5 BUN/Creatinine Ratio 11.2 Random Glucose 96 mg/dl Calcium Level 8.7 mg/dl Assessment and Plan Assessment and Plan: Assessment: Mrs. Madsen is a 72 year old female with a PMH significant for PE after knee surgery & not on currently on anticoagulation, Smith's esophagus, endocervical polyp, HTN, patellar tendonitis, and bovine aortic valve replacement on 04/11/2017 who presented on 05/11/2017 for SOB. Since admission, the patient has remained afebrile and has been sating in the low 90s on RA. Serial troponins and CK-MB were negative. UA was negative for infection. ECG shows RBBB with no evidence of ischemia. CXR shows a possible consolidation in the right lung base with effusion. Chest CTA shows segmental and subsegmental PEs within branches of the left lower lobe pulmonary artery, induration of the right ventral chest wall indicative of fluid collection in the anterior mediastinum, pericardial effusion, and right pleural effusion & consolidation. b /l LE venous doppler shows a right peroneal vein DVT and superficial thrombus within the right gastrocnemius. It also showed a 4.1 cm x 3 cm x 4.8 cm left groin cyst over the anterior left common femoral artery. This is indicative of evolving hematoma from recent groin catheterization. Although CXR and chest CTA indicate consolidation, clinically, the patient does not appear to have pneumonia. She has remained afebrile and WBC count has been normal since admission. Clinically, the patient does appear to have left lower lobe PE's consistent with chest CTA. Plan: Left lower lobe pulmonary emboli - Patient's SOB is improving, but she continues to be sating in the low 90's on RA. CTA is consistent with left lower lobe PEs and patient's recent history of bovine AVR on 04/11 and finding of right lower extremity DVT suggests a provoked PE. -PTT therapeutic at 57.7 -continue therapeutic IV heparin/dextrose 500 mL @ 23cc/hr -Warfarin 10 mg PO once (05/13), continue Warfarin 5 mg PO daily in anticipation of outpatient discharge anticoagulation -continue Ipratropium nebulizer 0.5 mg q6hr -continue levalbuterol 1.25 mg q6hr -continue guaifenesin 600 mg BID -continue Nitro 0.4 mg PRN for chest pain Right lower lobe pneumonia - Although CXR and chest CTA suggest consolidation in the right lower lobe, the patient clinically does not appear to have pneumonia. Since admission, she has remained afebrile and has had no leukocytosis -CRP decreased from 13 to 12.6 & Procalcitonin <0.05 - not suggestive of infectious process -MRSA nares negative -d/c Vancomycin & Zosyn -re-evaluate patient's clinical status AM Bovine AVR -f/u outpatient in [place] -left groin cyst found on b/l LE venous doppler, no pain and not concerning at this time -fluid collection of anterior mediastinum found on chest CTA, no pain and most likely post-op hematoma from surgical port, not concerning at this time HTN -Aspirin 81 mg PO -Carvedilol 3.125 mg PO BID -Lisinopril 20 mg PO -HCTZ 25 mg PO HLD -Rosuvastatin 20 mg PO Muscle Spasm -Baclofen 10 mg PO Constipation -Miralax 17 g Anxiety -Klonopin 0.5 mg PRN GI Prophylaxis: Ranitidine 150 mg PO daily & Protonix 40 mg PO daily Dispo: PT ensures patient is safe to go home, anticipating discharge tomorrow Continued [facility] stay due to: multiple IV medications needed
[2017-05-14] MEDS: LEValbuterol HFA 15GM INHALER INH SCH ×2 (21:47→23:19)
[2017-05-14] MEDS: IPRATROPIUM BROMIDE HFA INHALER INH SCH ×2 (21:48→23:20)
[2017-05-14] MEDS: ROSUVASTATIN CALCIUM 20 MG TAB PO SCH (21:50)
[2017-05-15] MEDS: HEPARIN 25,000 UNIT/500ML D5W 500 ML IV PRN (03:48)
[2017-05-15 04:05] VITALS: BP 110/70; PULSE 77; TEMP 36.5; O2SAT 93
[2017-05-15] MEDS: LEValbuterol HFA 15GM INHALER INH SCH ×2 (05:56→12:00)
[2017-05-15] MEDS: IPRATROPIUM BROMIDE HFA INHALER INH SCH ×2 (05:56→12:00)
[2017-05-15] MEDS ORDERED: ENOXAPARIN 120 MG/0.8 ML SYR SQ SCH (06:00)
[2017-05-15 06:13] LABS: INR 1.4 (0.9-1.1); PARTIAL THROMBOPLASTIN RATIO 2.4; PROTHROMBIN TIME (PATIENT) 15.4 SECONDS (9.0-12.0)
[2017-05-15] MEDS: CARVEDILOL 3.125 MG TAB PO SCH (07:53)
[2017-05-15] MEDS: CHOLECALCIFEROL 1000 INTER.UNIT TAB PO SCH (07:53)
[2017-05-15] MEDS: BACLOFEN 10 MG TAB PO SCH (07:53)
[2017-05-15] MEDS: ASPIRIN 81 MG ECTAB PO SCH (07:53)
[2017-05-15] MEDS: GUAIFENESIN 600 MG TABCR PO SCH (07:53)
[2017-05-15] MEDS: PANTOprazole SOD 40 MG TAB PO SCH (07:53)
[2017-05-15] MEDS: LISINOPRIL 20 MG TAB PO SCH (07:54)
[2017-05-15] MEDS: CLONAZEPAM 0.5 MG TAB PO PRN (07:54)
[2017-05-15 07:58] VITALS: BP 127/88; PULSE 81; TEMP 36.8; O2SAT 93
[2017-05-15] MEDS ORDERED: ENOXAPARIN 1 MG/KG SQ SCH (08:00)
[2017-05-15] MEDS ORDERED: LVNIS100 SQ ×2 (10:50)
[2017-05-15] MEDS ORDERED: CMD5 PO ×2 (10:50)
--- NOTE | 2017-05-15 10:56 | Discharge Instructions ---
Discharge Instructions Date of Service May 15, 2017. Admission Reason for Admission: Pneumonia, Pulmonary Embolism Discharge Discharge Diagnosis / Problem: Pulmonary Embolism Discharge Goals Goal(s): Improve disease control, Learn about illness, Prevent Disease Progression Activity Recommendations Activity Limitations: per Instructions/Follow-up section . Instructions / Follow-Up Instructions / Follow-Up You were found to have pulmonary embolisms in your lungs as well as clots in your legs. We will be sending a prescription to the pharmacy for lovenox injections and warfarin tablets. Please follow up with [facility] tomorrow at 2pm to check your INR and that way they can make changes to your warfarin if need be. If you have any worsening chest pain, or shortness of breath then please come back to the emergency department. Current Hospital Diet Patient's current hospital diet: AHA Diet (Heart Healthy) Discharge Diet Recommended Diet: AHA Diet (Heart Healthy) Pending Studies Studies pending at discharge: no Medical Emergencies . Who to Call and When: Medical Emergencies: If at any time you feel your situation is an emergency, please call 911 immediately. . Non-Emergent Contact Non-Emergency issues call your: Primary Care Provider, [facility] . . "Provider Documentation" section prepared by Wild Marlow. . VTE Core Measure Inpt VTE Proph given/why not?: Other Anticoagulation (heparin IV standard dose)
[2017-05-15 11:54] VITALS: BP 127/88; PULSE 81; TEMP 36.8; O2SAT 93
[2017-05-15] MEDS: ACETAMINOPHEN 325 MG TAB PO PRN (13:55)
--- NOTE | 2017-05-15 17:42 | Discharge Summary ---
Discharge Summary Date of Service May 15, 2017. (Wild Marlow MD) Discharge Summary Admission Date: May 11, 2017 at 16:07 Discharge Date: May 15, 2017 Discharge Disposition: Home Principal Diagnosis: Pulmonary Embolism Immunizations: Have You Had Influenza Vaccine: Yes History of Tetanus Vaccine?: No History of Pneumococcal: Yes History of Hepatitis B Vaccine: No Consultations: Cardiology (Wild Marlow MD) Medication Reconciliation New Medications: Enoxaparin (Enoxaparin Sodium) 100 Mg/Ml Inj 100 MG SQ Q12H for 7 Days, #7 ML Warfarin Sod (Coumadin) 5 Mg Tab 5 MG PO DAILY@16 for 14 Days, #14 TAB Continued Medications: Aspirin (Aspirin Ec) 81 Mg Tab 81 MG PO QAM Baclofen (Lioresal) 10 Mg Tab 10 MG PO BID, TAB Carvedilol (Coreg) 3.125 Mg Tab 3.125 MG PO BID, TAB Cholecalciferol (Vitamin D3) 2,000 Unit Cap 1 CAP PO DAILY for 30 Days, #30 CAP 3 Refills Clonazepam (Klonopin) 0.5 Mg Tab 0.5 MG PO HS PRN for Anxiety/Agitation, TAB Clonazepam (Klonopin) 0.5 Mg Tab 0.5 MG PO QAM PRN for Anxiety/Agitation, TAB Hydrochlorothiazide (Hctz) 25 Mg Tab 25 MG PO QAM, TAB Lisinopril (Zestril) 20 Mg Tab 20 MG PO QAM, TAB Melatonin (Meladox) 3 Mg Tab 0.5 TAB PO HS Rosuvastatin Calcium (Rosuvastatin Calcium) 20 Mg Tab 20 MG PO HS, #90 Discharge Exam Patient without shortness of breath Had some chest tightness overnight. Said she took a couple deep breaths and the pain went away Has been walking around [place] [facility] without any difficulty Review of Systems: Constitutional: No fever, No chills Respiratory: No cough, No sputum, No shortness of breath Cardiovascular: No chest pain, No palpitations Abdomen: No pain, No nausea, No vomiting Physical Exam: General Appearance: WD/WN, no apparent distress ENT: hearing grossly normal, pharynx normal Respiratory/Chest: lungs clear, no respiratory distress, no accessory muscle use Cardiovascular: regular rate, rhythm, normal peripheral pulses, + systolic murmur (2/6 radiating to carotids) Abdomen / GI: non tender, soft (Wild Marlow MD) Hospital Course Mrs. Madsen is a 72 year old female with a PMH significant for PE after knee surgery & not on currently on anticoagulation, Smith's esophagus, endocervical polyp, HTN, patellar tendonitis, and bovine aortic valve replacement on 04/11/2017 who presented on 05/11/2017 for SOB. Her SOB had been worsening since her aortic valve replacement, but became exceptionally worse at 0330 on 05/11/2017. She had associated chest pain that she described as tightness and b/l lower extremity swelling. Upon admission on the , the patient remained afebrile and has been sating in the low 90s on RA. Chest CTA showed segmental and subsegmental PEs within branches of the left lower lobe pulmonary artery. b/l LE venous doppler showed a right peroneal vein DVT and superficial thrombus within the right gastrocnemius. [facility] and was put on [facility] IV. Throughout her hospital stay she continued to progress well as her shortness of breath improved and her chest pain had subsided. She was given the option between coumadin and a NOAC and it was decided to start coumadin. She was placed on coumadin 5mg. On 05/15 day of discharge her INR was 1.4. We stopped the IV heparin and we transitioned her to subQ lovenox so she could go home. She was discharged home on 05/15 hemodynamically stable and in no acute distress. She is to get her INR checked tomorrow at 2pm with [facility] who will adjust her coumadin dose accordingly Total Time Spent: Less than 30 minutes This includes examination of the patient, discharge planning, medication reconciliation, and communication with other providers. (Wild Marlow MD) Resident Physician Supervision Note: I interviewed and examined the patient. Discussed with Dr. Marlow and agree with findings and plan as documented in the note. Any exceptions or clarifications are listed here: None Documented By: Nahun Henry feeling better ready to go home gave self lovenox this AM comfortable with plan family present and supportive. nad breathing unlabored vitals stable as in EMR recurrent PE - both were provoked post op. home lovenox--> coumadin. next INR scheduled already. safe for home. since recurrent PE technically may meet for lifelong anticoagulation, but since both were clearly post op and provoked will defer to PCP on duration based on ongoing outpt f/u (Nahun Henry D.O.) Discharge Instructions Please refer to the electronic Patient Visit Report (Discharge Instructions) for additional information. (Wild Marlow MD) Additional Copies To Renzo Barker M.D.
[2017-05-15] MEDS ORDERED: ENOXAPARIN 100 MG/1ML SYR SQ SCH (18:00)
--- NOTE | 2017-05-15 18:59 | Medical Student: [facility] ---
Med Student Progress Note Date of Service May 15, 2017. Subjective Overnight the patient experienced right sided chest tightness and SOB that awoke her from sleep. She continues to have right lower extremity pain as well. Otherwise, patient feels ready to go home. She is comfortable with the Lovenox injections. Now she denies CROCKETT, chest pain, SOB, abdominal pain, constipation, and diarrhea. Review of Systems Constitutional: No fever, No chills Eyes: No worsening of vision ENT: No hearing loss Respiratory: No cough, No sputum, No shortness of breath Cardiac: No chest pain, No edema, No palpitations Abdomen: No pain, No nausea, No vomiting, No diarrhea, No constipation Musculoskeletal: + problem reported (right lower extremity pain ) Female : No dysuria, No urinary frequency Endo: No fatigue Objective Vital Signs Date Time Temp Pulse Resp B/P (MAP) Pulse Ox O2 Delivery O2 Flow Rate FiO2 05/15/17 11:54 36.8 81 20 93 Room Air 05/15/17 08:00 Room Air 05/15/17 07:58 36.8 81 20 127/88 (101) 93 Room Air 05/15/17 04:05 36.5 77 16 110/70 (83) 93 Room Air 05/15/17 00:00 Room Air 05/14/17 23:36 36.6 76 20 108/75 (86) 93 Room Air 05/14/17 19:34 36.5 84 18 123/70 (87) 97 Nasal Cannula 3.0 Physical Exam General Appearance: WD/WN, no apparent distress Eyes: bilateral eyes normal inspection, bilateral eyes PERRL, bilateral eyes EOMI ENT: normal ENT inspection Neck: supple, no adenopathy, thyroid normal Respiratory/Chest: lungs clear, normal breath sounds, no respiratory distress Cardiovascular: regular rate, rhythm, no edema, no gallop, no JVD, no murmur Abdomen: normal bowel sounds, non tender, soft, no organomegaly Extremities: normal range of motion, normal inspection, no pedal edema, + calf tenderness (right sided ) Neurologic/Psychiatric: fruit receiver II-XII nml as tested, no motor/sensory deficits Skin: normal color, warm/dry, no rash Laboratory Results Last 24 Hours Test 05/15/17 05:22 Prothrombin Time 15.4 SECONDS Prothromb Time International Ratio 1.4 Activated Partial Thromboplast Time 61.3 SECONDS Partial Thromboplastin Ratio 2.4 Assessment and Plan Assessment and Plan: Assessment: Mrs. Madsen is a 72 year old female with a PMH significant for PE after knee surgery & not on currently on anticoagulation, Smith's esophagus, endocervical polyp, HTN, patellar tendonitis, and bovine aortic valve replacement on 04/11/2017 who presented on 05/11/2017 for SOB. Since admission, the patient has remained afebrile and has been sating in the low 90s on RA. Serial troponins and CK-MB were negative. UA was negative for infection. ECG shows RBBB with no evidence of ischemia. CXR shows a possible consolidation in the right lung base with effusion. Chest CTA shows segmental and subsegmental PEs within branches of the left lower lobe pulmonary artery, induration of the right ventral chest wall indicative of fluid collection in the anterior mediastinum, pericardial effusion, and right pleural effusion & consolidation. b /l LE venous doppler shows a right peroneal vein DVT and superficial thrombus within the right gastrocnemius. It also showed a 4.1 cm x 3 cm x 4.8 cm left groin cyst over the anterior left common femoral artery. This is indicative of evolving hematoma from recent groin catheterization. Although CXR and chest CTA indicate consolidation, clinically, the patient does not appear to have pneumonia. She has remained afebrile and WBC count has been normal since admission. Clinically, the patient does appear to have left lower lobe PE's consistent with chest CTA. Plan: Left lower lobe pulmonary emboli - Patient's SOB is improving, but she continues to be sating in the low 90's on RA. CTA is consistent with left lower lobe PEs and patient's recent history of bovine AVR on 04/11 and finding of right lower extremity DVT suggests a provoked PE. -PTT therapeutic at 61.3 -INR today 1.4, next INR check tmr @ 1400 during cardiology appointment -continue Enoxaparin 100 mg SQ q12hr -continue Warfarin 5 mg PO daily -continue Ipratropium nebulizer 0.5 mg q6hr -continue levalbuterol 1.25 mg q6hr Right lower lobe pneumonia - Although CXR and chest CTA suggest consolidation in the right lower lobe, the patient clinically does not appear to have pneumonia. Since admission, she has remained afebrile and has had no leukocytosis -CRP decreased from 13 to 12.6 & Procalcitonin <0.05 - not suggestive of infectious process -MRSA nares negative -d/c Vancomycin & Zosyn -re-evaluate patient's clinical status AM Bovine AVR -f/u outpatient in [place] -left groin cyst found on b/l LE venous doppler, no pain and not concerning at this time -fluid collection of anterior mediastinum found on chest CTA, no pain and most likely post-op hematoma from surgical port, not concerning at this time HTN -Aspirin 81 mg PO -Carvedilol 3.125 mg PO BID -Lisinopril 20 mg PO -HCTZ 25 mg PO HLD -Rosuvastatin 20 mg PO Muscle Spasm -Baclofen 10 mg PO Constipation -resolved Anxiety -Klonopin 0.5 mg PO daily Continued [facility] stay due to: multiple IV medications needed
[2017-05-30] MEDS ORDERED: IBUP-1050 PO (14:12)
[2017-05-30] MEDS ORDERED: CLC6 PO (14:12)
[2017-06-01] MEDS ORDERED: ASPI81TA28 PO ×2 (10:01)
[2017-06-01] MEDS ORDERED: CLON0.5T3 PO ×2 (11:51)
[2017-06-01] MEDS ORDERED: ROSU20TA22 PO ×2 (13:43)
[2017-06-01] MEDS ORDERED: CHOL2000 PO ×2 (14:40)
[2017-06-19] MEDS ORDERED: CMD3 PO (16:09)
[2017-06-19] MEDS ORDERED: MTR600 PO (16:09)
[2017-06-19] MEDS ORDERED: CRFUDL PO (16:09)
[2017-06-19] MEDS ORDERED: LSN20 PO (16:09)
[2017-06-19] MEDS ORDERED: MCTP EXT (16:09)
[2017-07-11] MEDS ORDERED: IBUP-1050 PO (10:08)
[2017-07-11] MEDS ORDERED: AMLO-110 PO (10:08)
[2017-07-11] MEDS ORDERED: ULT50X PO (10:08)
[2017-07-11] MEDS ORDERED: LSN40 PO (10:08)
== END 2017-05-15 14:05 | disposition home health service (06) | DRG 300 ==
LOC: C.EDB 13:24 → C.MED 16:07 → ENRESERV 16:50
PROVIDERS: ADMIT Hospitalist; ATTEND Family Medicine
DX: T81.718A Complication of other artery following a procedure, not elsewhere classified, initial encounter (principal); I27.82 Chronic pulmonary embolism; I82.491 Acute embolism and thrombosis of other specified deep vein of right lower extremity; I82.811 Embolism and thrombosis of superficial veins of right lower extremity; D68.52 Prothrombin gene mutation; I10 Essential (primary) hypertension; E78.5 Hyperlipidemia, unspecified; M62.838 Other muscle spasm; Z79.899 Other long term (current) drug therapy; Z79.82 Long term (current) use of aspirin; Z86.711 Personal history of pulmonary embolism; Z95.3 Presence of xenogenic heart valve; Z83.3 Family history of diabetes mellitus; Z82.49 Family history of ischemic heart disease and other diseases of the circulatory system; Z84.1 Family history of disorders of kidney and ureter; Y83.8 Other surgical procedures as the cause of abnormal reaction of the patient, or of later complication, without mention of misadventure at the time of the procedure

== ENCOUNTER → 2017-05-19 | Outpatient (CLI) | payer BC ==
[~2017-05-19] MED LIST changes: +AMLO-110 PO; +ASPI81TA28 PO; +CHOL2000 PO; +CLC6 PO; +CMD/25 PO; +CMD3 PO; +CMD5 PO; +COLC1TAB25 PO; +CRFUDL PO; +CRG3125 PO; +FLUC100T4 PO; +HYDR25TA5 PO; +IBUP-1050 PO; +KLN5X PO; +LISI20TA3 PO; +LRS10 PO; +LSN20 PO; +LSN40 PO; +LVNIS100 SQ; +MCTP EXT; +MELA3TAB PO; +MIRT15TA PO; +MTR600 PO; +ONDA4TAB10 SL; +PANT40TA PO; +RANI150T3 PO; +ROSU20TA22 PO; +TRAZ50TA35 PO; +ULT50X PO; +WARF-280 PO; +WARF2TAB8 PO; +WARF6TAB5 PO
[2017-05-19 12:35] LABS: INR 2.6 (0.9-1.1); PROTHROMBIN TIME (PATIENT) 28.4 SECONDS (9.0-12.0)
== END | disposition home or self-care (01) ==
LOC: C.LABBFT 09:53 → EDSTATUS 10:02
PROVIDERS: ATTEND Physician Assistant
DX: I26.99 Other pulmonary embolism without acute cor pulmonale (principal)

== ENCOUNTER → 2017-05-20 | Outpatient (CLI) | payer BC ==
[2017-05-20 18:08] LABS: BASO % 0.6 %; BASO ABS # 0.04 K/uL (0-0.2); COMPLETE YES; EOS % 7.4 %; HEMATOCRIT 34.3 % (37-47); IG% 0.1 %; LYMPH % 19.6 %; LYMPH ABS # 1.33 K/uL (1.2-3.4); MEAN CELL VOLUME 88.9 fL (80-100); MEAN CORPUSCULAR HEMOGLOBIN 27.2 pg (25-34); MEAN CORPUSCULAR HGB CONC 30.6 g/dl (32-36); MEAN PLATELET VOLUME 8.9 fL (7.4-10.4); MONO % 10.5 %; NEUT % 61.8 %; PLATELET COUNT 472 K/uL (130-400); RED BLOOD COUNT 3.86 M/uL (4.2-5.4); WHITE BLOOD COUNT 6.77 K/uL (4.8-10.8)
[2017-05-20 18:13] LABS: ALT/SGPT 18 U/L (12-78); BLOOD UREA NITROGEN 13 mg/dl (7-18); BUN/CREATININE RATIO 14.2 (10-20); CALCIUM 9.7 mg/dl (8.5-10.1); CARBON DIOXIDE 26 mmol/L (21-32); CHLORIDE 109 mmol/L (98-107); CREATININE 0.93 mg/dl (0.60-1.20); GLUCOSE 96 mg/dl (70-99); POTASSIUM 3.4 mmol/L (3.5-5.1); SODIUM 143 mmol/L (136-145)
[2017-05-20 18:16] LABS: ALB/GLOB RATIO 0.6 (0.9-2); ALKALINE PHOSPHATASE 96 U/L (45-117); AST/SGOT 16 U/L (15-37)
== END | disposition home or self-care (01) ==
LOC: C.LABBFT 12:34
PROVIDERS: ATTEND Physician Assistant Medical
DX: I26.99 Other pulmonary embolism without acute cor pulmonale (principal)

== ENCOUNTER → 2017-05-22 | Outpatient (CLI) | payer BC ==
--- NOTE | 2017-05-22 13:43 | DIAGNOSTIC IMAGING REPORT ---
CHEST 2 VIEWS ROUTINE HISTORY: 72 years-old Female J90 Pleural effusion, right. Follow-up study COMPARISON: CT of the chest 05/11/2017, chest radiograph 05/11/2017 TECHNIQUE: Portable AP view of the chest FINDINGS: Cardiac silhouette is again enlarged. There is atherosclerosis of the aorta. No pneumothorax is identified. Suture clips are seen adjacent to the right bay. There is a persistent moderate right pleural effusion with right basilar consolidation. There is improved aeration of the left lung base. IMPRESSION: Persistent moderate right pleural effusion with right basilar consolidation. The above report was generated using voice recognition software. It may contain grammatical, syntax or spelling errors. Electronically signed by: Demario Vargas M.D. 05/22/2017 1:42 PM Dictated Date/Time: 05/22/2017 1:40 PM
== END | disposition home or self-care (01) ==
LOC: C.RAD1850 13:28
PROVIDERS: ATTEND Physician Assistant Medical
DX: J90 Pleural effusion, not elsewhere classified (principal)

== ENCOUNTER → 2017-05-23 | Outpatient (CLI) | payer BC | END | disposition home or self-care (01) | LOC: C.LAB 17:09 | PROVIDERS: ATTEND Physician Assistant Medical | DX: R19.7 Diarrhea, unspecified (principal); R93.8 Abnormal findings on diagnostic imaging of other specified body structures ==

== ENCOUNTER → 2017-05-26 | Outpatient (CLI) | payer BC ==
[2017-05-26 17:30] LABS: BASO % 0.5 %; BASO ABS # 0.05 K/uL (0-0.2); COMPLETE YES; EOS % 3.3 %; HEMATOCRIT 35.8 % (37-47); IG% 0.3 %; LYMPH ABS # 1.55 K/uL (1.2-3.4); MEAN CELL VOLUME 89.7 fL (80-100); MEAN CORPUSCULAR HEMOGLOBIN 27.1 pg (25-34); MEAN CORPUSCULAR HGB CONC 30.2 g/dl (32-36); MEAN PLATELET VOLUME 9.6 fL (7.4-10.4); MONO % 9.5 %; NEUT % 71.4 %; PLATELET COUNT 563 K/uL (130-400); RED BLOOD COUNT 3.99 M/uL (4.2-5.4); WHITE BLOOD COUNT 10.31 K/uL (4.8-10.8)
[2017-05-26 17:46] LABS: ALT/SGPT 15 U/L (12-78); AST/SGOT 14 U/L (15-37); BLOOD UREA NITROGEN 17 mg/dl (7-18); BUN/CREATININE RATIO 19.7 (10-20); CALCIUM 9.8 mg/dl (8.5-10.1); CARBON DIOXIDE 26 mmol/L (21-32); CHLORIDE 105 mmol/L (98-107); CREATININE 0.86 mg/dl (0.60-1.20); GLUCOSE 104 mg/dl (70-99); POTASSIUM 3.5 mmol/L (3.5-5.1); SODIUM 140 mmol/L (136-145)
[2017-05-26 17:49] LABS: ALB/GLOB RATIO 0.7 (0.9-2); ALKALINE PHOSPHATASE 105 U/L (45-117)
== END | disposition home or self-care (01) ==
LOC: C.LABBFT 09:44
PROVIDERS: ATTEND Internal Medicine
DX: R06.02 Shortness of breath (principal); R93.8 Abnormal findings on diagnostic imaging of other specified body structures

== ENCOUNTER → 2017-05-26 | Outpatient (CLI) | payer BC ==
--- NOTE | 2017-05-26 16:28 | DIAGNOSTIC IMAGING REPORT ---
CHEST COMBO ANGIO DISSECTION CLINICAL HISTORY: Abnormal chest CT. Worsening symptoms. COMPARISON STUDY: Chest CT May 11, 2017 and chest radiograph May 22, 2017. TECHNIQUE: Unenhanced and arterial phase images of the chest were obtained. Injection of 110 cc Optiray 320 IV was uneventful. Sagittal and coronal reconstructions were viewed as well as maximal intensity projections on an independent 3-D workstation. FINDINGS: There are post surgical findings consistent with aortic valve replacement through a right anterior minithoracotomy. Infiltration within the operative bed, including the anterior mediastinum extending to the pericardium and ascending aorta is again noted. Slight decrease in these findings is noted since exam of May 11, 2017. An anterior mediastinal fluid collection along the anterior aspect of the ascending aorta measures 2.6 x 2.4 cm. This has no peripheral enhancement. This is similar to prior exam. A small pericardial effusion is slightly increased in size. A moderate right pleural effusion is unchanged since prior CT. There is no pneumothorax. There is a trace left pleural effusion. There is segmental right lower lobe airspace opacity with volume loss which suggests atelectasis. Right upper and middle lobe opacities favor atelectasis. This is unchanged. Central airways are patent. No pulmonary emboli are identified. There is no evidence of thoracic aortic dissection. Postoperative findings are similar to prior study. Mild biliary ductal dilatation is likely related to prior cholecystectomy. IMPRESSION: 1. Findings consistent with recent aortic valve replacement through a right anterior minithoracotomy. Infiltration within the anterior mediastinum extending to the ascending aorta with a small anterior mediastinal fluid collection. Slight improvement since exam of May 11, 2017. These likely reflect expected postoperative findings. A superimposed infection cannot excluded but there is no convincing evidence for an infectious process. 2. Mild increase in size of a small pericardial effusion since chest CT of May 11, 2017. 3. No change in a moderate right pleural effusion with suspected segmental right lower lobe atelectasis and volume loss. 4. No aortic dissection. Electronically signed by: Rikki Herrera M.D. 05/26/2017 4:27 PM Dictated Date/Time: 05/26/2017 4:05 PM
== END | disposition home or self-care (01) ==
LOC: C.CTS 15:25
PROVIDERS: ATTEND Internal Medicine
DX: R93.8 Abnormal findings on diagnostic imaging of other specified body structures (principal)

== ENCOUNTER 2017-05-27 09:01 | Inpatient (IN) | payer BC, OTHER ==
[~2017-05-27] VITALS: Ht 160 cm; Wt 100.4 kg
[~2017-05-27 09:01] MED LIST changes: -AMLO-110 PO; -ASPI81TA28 PO; -CHOL2000 PO; -CLC6 PO; -CMD/25 PO; -CMD3 PO; -COLC1TAB25 PO; -CRFUDL PO; -CRG3125 PO; -FLUC100T4 PO; -HYDR25TA5 PO; -IBUP-1050 PO; -KLN5X PO; -LISI20TA3 PO; -LRS10 PO; -LSN20 PO; -LSN40 PO; -MCTP EXT; -MELA3TAB PO; -MIRT15TA PO; -MTR600 PO; -ONDA4TAB10 SL; -PANT40TA PO; -PRT/40 PO; -RANI150T3 PO; -ROSU20TA22 PO; -TRAZ50TA35 PO; -ULT50X PO; -WARF-280 PO; -WARF2TAB8 PO; -WARF6TAB5 PO
[2017-05-27] MEDS ORDERED: SODIUM CHLORIDE 0.9% 1000ML 1,000 ML IV STA (09:47)
[2017-05-27 09:59] LABS: BASO % 0.4 %; BASO ABS # 0.04 K/uL (0-0.2); COMPLETE YES; EOS % 2.9 %; HEMATOCRIT 30.2 % (37-47); IG% 0.2 %; LYMPH % 15.1 %; LYMPH ABS # 1.35 K/uL (1.2-3.4); MEAN CELL VOLUME 85.6 fL (80-100); MEAN CORPUSCULAR HEMOGLOBIN 27.8 pg (25-34); MEAN CORPUSCULAR HGB CONC 32.5 g/dl (32-36); NEUT % 72.4 %; PLATELET COUNT 531 K/uL (130-400); RED BLOOD COUNT 3.53 M/uL (4.2-5.4); WHITE BLOOD COUNT 8.97 K/uL (4.8-10.8)
--- NOTE | 2017-05-27 10:06 | EMERGENCY ROOM VISIT NOTE ---
History Report prepared by Tristen: Leigh Delong Under the Supervision of: Dr. Michael Ruiz M.D. First contact with patient: 09:27 Chief Complaint: CHEST PAIN Stated Complaint: PAIN IN CHEST AND BACK, SICK Nursing Triage Summary: pt reports abdominal pain with NVD, and midsternal cp starting 1 day ago pt reports CT completed 1 day ago showing fluid in R lung to see pulminology 05/28 pt reports aortic valve replaced 04/08/17 History of Present Illness The patient is a 72 year old female who presents to the Emergency Room with complaints of constant chest tightness that worsened this morning. The patient states that she is experiencing shortness of breath secondary to the chest tightness. The shortness of breath is worse when lying flat. The patient states that she has been experiencing chest tightness and shortness of breath since she was discharged from the hospital 12 days ago. The patient had an aortic valve replacement at the beginning of April in [place]. The patient had a CT dissection study yesterday as an outpatient which Dr. Barker, her PCP, ordered. The CT revealed a small fluid collection in the anterior mediastinum which is unchanged from previous studies, small pericardial effusion which may be slightly worse than previous studies, and a right pleural effusion that is unchanged from the CT 3 weeks prior. She is also experiencing some dizziness with changes in position but it resolves on its own after a few minutes. The patient is also experiencing a loss of appetite. She denies fevers, chills, nausea, vomiting, abdominal pain. The patient adds that she has been experiencing an intermittent dry cough since she was discharged from the hospital in the beginning of May. The patient is also experiencing diarrhea that started 5 days ago. She states that she has loose stools every 30-60 minutes. She states that the stools are not watery. The diarrhea was not relieved with Pepto Bismol or Imodium. The patient states that she was on antibiotics when she was admitted to the hospital at the beginning of May. She adds that after she had a bowel movement this morning there was blood on the wash cloth after she wiped. The patient states that she thinks she has a small hemorrhoid. The patient has a history of blood clots and she is on Coumadin. The patient had her INR checked 4 days ago and it was 2.6. She states that she is supposed to get it checked again this Friday. Source of History: patient Onset: this morning Position: chest Quality: other (tightness) Timing: constant, worsening Associated Symptoms: + cough (intermittent, dry), + SOB, + diarrhea, No fevers, No chills, No nausea, No vomiting, No abdominal pain Note: dizziness with changes in position, loss of appetite Review of Systems See HPI for pertinent positives and negatives. A total of ten systems were reviewed and were otherwise negative. Past Medical & Surgical Medical Problems: (1) back surgery (2) Barretts esophagus (3) Endocervical polyp (4) Hypertension (5) Patellar tendonitis (6) Pneumonia (7) Post-menopause bleeding (8) Weakness Family History Diabetes mellitus FH: cancer FH: heart disease FH: lung disease Gallbladder disease Hypertension Kidney disease Kidney stones Social History Smoking Status: Never Smoker Alcohol Use: none Drug Use: none Marital Status: Housing Status: lives with family Occupation Status: retired Current/Historical Medications Scheduled Aspirin (Aspirin Ec), 81 MG PO QAM Baclofen (Lioresal), 10 MG PO BID Carvedilol (Coreg), 3.125 MG PO BID Cholecalciferol (Vitamin D3), 1 CAP PO DAILY Hydrochlorothiazide (Hctz), 25 MG PO QAM Lisinopril (Zestril), 20 MG PO QAM Melatonin (Meladox), 0.5 TAB PO HS Pantoprazole (Protonix), 40 MG PO DAILY Rosuvastatin Calcium (Rosuvastatin Calcium), 20 MG PO HS Warfarin Sod (Coumadin), 2.5 MG PO DAILY Scheduled PRN Clonazepam (Klonopin), 0.25 MG PO DAILY PRN for Anxiety/Agitation Allergies Coded Allergies: Niacin (Verified Allergy, Intermediate, RASH, 05/11/17) Atorvastatin (Verified Adverse Reaction, Mild, MUSCLE ACHES, 05/14/17) Diltiazem (Verified Adverse Reaction, Mild, HEADACHE, 05/14/17) Physical Exam Vital Signs Date Time Temp Pulse Resp B/P (MAP) Pulse Ox O2 Delivery O2 Flow Rate FiO2 05/27/17 12:57 90 18 118/63 96 Room Air 05/27/17 12:18 85 05/27/17 11:53 95 Room Air 05/27/17 11:10 83 18 102/52 95 Room Air 05/27/17 09:26 87 05/27/17 09:21 97 Room Air 05/27/17 09:09 36.7 90 18 116/80 97 Room Air Physical Exam GENERAL: Awake, alert, well-appearing, in no distress HENT: Normocephalic, atraumatic. Mucous membranes dry. EYES: Normal conjunctiva. Sclera non-icteric. NECK: Supple. No nuchal rigidity. FROM. No JVD. RESPIRATORY: Diminished at the bases bilaterally, right more than left. CARDIAC: Regular rate, normal rhythm. Extremities warm and well perfused. Pulses equal. ABDOMEN: Soft, non-distended. No tenderness to palpation. No rebound or guarding. No masses. 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 No stool or blood in the rectal vault. MUSCULOSKELETAL: Chest examination reveals no tenderness. The back is symmetrical on inspection without obvious abnormality. There is no CVA tenderness to palpation. No joint edema. LOWER EXTREMITIES: Calves are equal size bilaterally and non-tender. No edema. No discoloration. NEURO: Normal sensorium. No sensory or motor deficits noted. SKIN: Pale. No rash or jaundice noted. Medical Decision & Procedures ER Provider Diagnostic Interpretation: Radiology results as stated below per my review and radiologist interpretation: CHEST ONE VIEW PORTABLE FINDINGS: A small to moderate right pleural effusion is unchanged. There is no pneumothorax or evidence of pulmonary edema. Right lower lung opacity with volume loss is noted. Enlargement of the cardiac silhouette is unchanged. A prosthetic aortic valve is again noted. IMPRESSION: 1. No change in a small to moderate right pleural effusion. 2. No evidence of pulmonary edema 2. No change in right lower lung airspace opacity with volume loss which favors atelectasis. Electronically signed by: Rikki Herrera M.D. 05/27/2017 10:09 AM Dictated Date/Time: 05/27/2017 10:06 AM Laboratory Results 05/27/17 09:28 Red Blood Count 3.53, Mean Corpuscular Volume 85.6, Mean Corpuscular Hemoglobin 27.8, Mean Corpuscular Hemoglobin Concent 32.5, Mean Platelet Volume 9.0, Neutrophils (%) (Auto) 72.4, Lymphocytes (%) (Auto) 15.1, Monocytes (%) (Auto) 9.0, Eosinophils (%) (Auto) 2.9, Basophils (%) (Auto) 0.4, Neutrophils # (Auto) 6.49, Lymphocytes # (Auto) 1.35, Monocytes # (Auto) 0.81, Eosinophils # (Auto) 0.26, Basophils # (Auto) 0.04 05/27/17 09:28 Test 05/27/17 09:28 White Blood Count 8.97 K/uL (4.8-10.8) Red Blood Count 3.53 M/uL (4.2-5.4) Hemoglobin 9.8 g/dL (12.0-16.0) Hematocrit 30.2 % (37-47) Mean Corpuscular Volume 85.6 fL (80-100) Mean Corpuscular Hemoglobin 27.8 pg (25-34) Mean Corpuscular Hemoglobin Concent 32.5 g/dl (32-36) Platelet Count 531 K/uL (130-400) Mean Platelet Volume 9.0 fL (7.4-10.4) Neutrophils (%) (Auto) 72.4 % Lymphocytes (%) (Auto) 15.1 % Monocytes (%) (Auto) 9.0 % Eosinophils (%) (Auto) 2.9 % Basophils (%) (Auto) 0.4 % Neutrophils # (Auto) 6.49 K/uL (1.4-6.5) Lymphocytes # (Auto) 1.35 K/uL (1.2-3.4) Monocytes # (Auto) 0.81 K/uL (0.11-0.59) Eosinophils # (Auto) 0.26 K/uL (0-0.5) Basophils # (Auto) 0.04 K/uL (0-0.2) RDW Standard Deviation 47.1 fL (36.4-46.3) RDW Coefficient of Variation 15.0 % (11.5-14.5) Immature Granulocyte % (Auto) 0.2 % Immature Granulocyte # (Auto) 0.02 K/uL (0.00-0.02) Prothrombin Time 37.5 SECONDS (9.0-12.0) Prothromb Time International Ratio 3.3 (0.9-1.1) Anion Gap 12.0 mmol/L (3-11) Est Creatinine Clear Calc Drug Dose 52.0 ml/min Estimated GFR () 58.5 Estimated GFR (Non- 50.5 BUN/Creatinine Ratio 15.2 (10-20) Calcium Level 9.2 mg/dl (8.5-10.1) Total Bilirubin 0.3 mg/dl (0.2-1) Direct Bilirubin 0.1 mg/dl (0-0.2) Aspartate Amino Transf (AST/SGOT) 11 U/L (15-37) Alanine Aminotransferase (ALT/SGPT) 14 U/L (12-78) Alkaline Phosphatase 91 U/L (45-117) Troponin I < 0.015 ng/ml (0-0.045) Total Protein 7.5 gm/dl (6.4-8.2) Albumin 2.9 gm/dl (3.4-5.0) Lipase 128 U/L (73-393) Laboratory results reviewed by me Medications Administered Medications (Trade) Dose Ordered Sig/Aurora Route Start Time Stop Time Status Last Admin Dose Admin Sodium Chloride 1,000 ml @ 125 mls/hr Q8H STAT IV 05/27/17 09:47 05/27/17 17:46 05/27/17 09:59 125 MLS/HR Sodium Chloride 500 ml @ 999 mls/hr Q31M STAT IV 05/27/17 11:13 05/27/17 11:43 DC 05/27/17 11:15 999 MLS/HR Procedure Bedside Echo: Small anterior cardio effusion. LV and RV function are grossly normal. ECG Indication: chest pain, SOB/dyspnea Rate (beats per minute): 89 Rhythm: normal sinus Findings: RBBB, no acute ischemic change Comparison ECG Date: 05/15/2017 Change: no significant change ED Course 0935: The patient was evaluated in room B3. A complete history and physical exam was performed. 0947: Ordered Sodium Chloride 1000 ml @ 125 mls/hr IV 1050: I performed a bedside echo on the patient at this time. Please refer to the procedure note above for further details. 1113: Ordered Sodium Chloride 500 ml @ 999 mls/hr IV 1120: Discussed the patient's case with Dr. Romero - Cardiothoracic Surgery. He recommends admitting the patient for hydration. He does not feel that he has a role currently from a surgical perspective. He also recommends that it might be beneficial to drain the pleural effusion. He asked if she completed cardiac rehabilitation and he said that if she did, she probably needs more but if she has not then she should have it. 1135: Discussed the patient's case with Dr. Clifton Michel of the [facility]. The patient will be evaluated for further treatment and disposition. 1137: Upon reexamination, the patient was resting comfortably. I discussed the test results and treatment plan with her. The patient will be evaluated for further management. Medical Decision I reviewed the patient's past medical history, medications, and the nursing notes as described above. Differential diagnoses include ACS, worsening pleural effusion, pericardial effusion, pneumonia, dehydration, gastroenteritis, congestive heart failure. Patient is a 72-year-old woman with a completed past medical history of recurrent pulmonary embolism on Coumadin and a recent aortic valve replacement with a porcine valve in April of this year at [facility] presenting to the emergency Department with worsening of her recent chronic shortness of breath and fatigue since her discharge at the beginning of May from an admission for a recurrence of her PEs in the setting of persistent diarrhea since last . On arrival the patient appears fatigued however in no acute distress. AFVSS. EKG unremarkable. Chest x-ray appears stable from prior. Labs otherwise unremarkable including a normal WBC and a negative troponin. Bedside echo showed grossly intact healthy and RV function. However , patient appears clinically dry on exam crack mucous membranes which was also consistent with the patient's bedside echo. Considering the patient's persistent symptoms of shortness of breath now in the setting of mild dehydration admission reasonable. Findings including patient's CT scan yesterday which showed stable, likely postoperative changes including mediastinal inflammation and pericardial effusion discussed with the patient's surgeon at [facility], Dr. Romero, who agreed with admission for hydration and possible pulmonary consult for drainage of pleural effusion if indicated. Considering WBC and afebrile pulmonary/mediastinal infectious process not likley. Otherwise considering the patient's apparent stable cardiac function no cardiac surgical role at this time. Patient admitted to hospital medicine. Medication Reconcilliation Current Medication List: was personally reviewed by me Blood Pressure Screening Patient's blood pressure: Normal blood pressure Consults Time Called: 1108 Consulting Physician: Dr. Romero - Cardiothoracic Surgery Returned Call: [phone] Discussed the patient's case with Dr. Romero - Cardiothoracic Surgery. He recommends admitting the patient for hydration. He does not feel that he has a role currently from a surgical perspective. He also recommends that it might be beneficial to drain the pleural effusion. He asked if she completed cardiac rehabilitation and he said that if she did, she probably needs more but if she has not then she should have it. Additional Consults: Time Called: 1126 Consulted Physician: Dr. Clifton [place] [facility] [place] Call: [phone] Additional Comments: Discussed the patient's case with Dr. Clifton Michel of the [facility]. The patient will be evaluated for further treatment and disposition. Impression Primary Impression: Mild dehydration Additional Impression: Pleural effusion Scribe Attestation The scribe's documentation has been prepared under my direction and personally reviewed by me in its entirety. I confirm that the note above accurately reflects all work, treatment, procedures, and medical decision making performed by me. Departure Information Dispostion Being Evaluated By Hospitalist Referrals Renzo Barker M.D. (PCP) Patient Instructions My [facility] Problem Qualifiers
[2017-05-27 10:08] LABS: ALT/SGPT 14 U/L (12-78); BLOOD UREA NITROGEN 17 mg/dl (7-18); BUN/CREATININE RATIO 15.2 (10-20); CALCIUM 9.2 mg/dl (8.5-10.1); CARBON DIOXIDE 21 mmol/L (21-32); CHLORIDE 104 mmol/L (98-107); GLUCOSE 122 mg/dl (70-99); POTASSIUM 3.1 mmol/L (3.5-5.1); SODIUM 137 mmol/L (136-145)
[2017-05-27 10:10] LABS: INR 3.3 (0.9-1.1); PROTHROMBIN TIME (PATIENT) 37.5 SECONDS (9.0-12.0)
--- NOTE | 2017-05-27 10:11 | DIAGNOSTIC IMAGING REPORT ---
CHEST ONE VIEW PORTABLE CLINICAL HISTORY: Chest pain. COMPARISON STUDY: Chest radiograph May 22, [address] May 26, 2017. FINDINGS: A small to moderate right pleural effusion is unchanged. There is no pneumothorax or evidence of pulmonary edema. Right lower lung opacity with volume loss is noted. Enlargement of the cardiac silhouette is unchanged. A prosthetic aortic valve is again noted. IMPRESSION: 1. No change in a small to moderate right pleural effusion. 2. No evidence of pulmonary edema 2. No change in right lower lung airspace opacity with volume loss which favors atelectasis. Electronically signed by: Rikki Herrera M.D. 05/27/2017 10:09 AM Dictated Date/Time: 05/27/2017 10:06 AM
[2017-05-27 10:12] LABS: ALKALINE PHOSPHATASE 91 U/L (45-117); AST/SGOT 11 U/L (15-37)
[2017-05-27] MEDS ORDERED: PANT40TA PO (10:18)
[2017-05-27] MEDS ORDERED: CMD/25 PO (10:18)
[2017-05-27] MEDS ORDERED: SODIUM CHLORIDE 0.9% 500ML 500 ML IV STA (11:13)
[2017-05-27 11:53] VITALS: O2SAT 95; Ht 160 cm; Wt 100.4 kg
[2017-05-27] MEDS ORDERED: ZOLPIDEM TARTRATE 5 MG TAB PO PRN (14:15)
[2017-05-27] MEDS ORDERED: ALUMINUM/MAGNESIUM/SIMETH (MAALOX MAX) 30 ML UDC PO PRN (14:15)
[2017-05-27] MEDS ORDERED: MAGNESIUM HYDROXIDE SUSP 30 ML UDC PO PRN (14:15)
[2017-05-27] MEDS ORDERED: ACETAMINOPHEN 325 MG TAB PO PRN (14:15)
[2017-05-27] MEDS ORDERED: NITROGLYCERIN 0.4 MG SL PER TAB CHARGE SL PRN (14:15)
[2017-05-27 15:05] VITALS: BP 103/70; PULSE 84; TEMP 36.7; O2SAT 97
--- NOTE | 2017-05-27 15:32 | HISTORY & PHYSICAL EXAMINATION ---
DATE OF ADMISSION: 05/27/2017 CHIEF COMPLAINT: Diarrhea/weakness/chest tightness. HISTORY OF PRESENT ILLNESS: The patient is a 72-year-old white female who was recently in 04/11/2017 had an aortic valve replacement with bioprosthetic valve. The patient is currently on Coumadin for DVT and PE, but not for the valve per se. The patient since the surgery has been having chest heaviness and tightness which is slowly and gradually started to get better until a few days ago where she felt that the tightness was worse. The patient also had severe diarrhea within the last 3-4 days. Denies any blood in the stool. The patient stated that her stool has been examined and she was told that there is no infection so she started taking Imodium. As per patient, a few days ago she had a CT angiogram to rule out any propagation of her prior discovered pulmonary embolism that was discovered in the beginning of the month. Her CT angiogram was done dissection protocol on 05/26/2017 and showed finding consistent with recent aortic valve replacement, infiltration within the anterior mediastinum extending to the ascending aorta with a small anterior mediastinal fluid collection that slightly improved since May 11. These likely reflect postoperative changes. The patient denied any fever or chills and results of the CAT scan have been discussed with Dr. Cuellar , the patient's cardiothoracic surgeon that did the surgery who stated that it is uncommon but he has seen it before postsurgical. Denies any fever or chills. She was found to have an INR of 3.3. PAST MEDICAL HISTORY: 1. As mentioned in the HPI, status post aortic valve replacement. 2. Recent DVT and pulmonary embolism in April, currently on Coumadin. 3. History of DVT about 15 years ago when she had bilateral knee replacements. 4. History of Smith's esophagus. 5. History of high blood pressure. 6. History of back surgery. SOCIAL HISTORY: Does not smoke or drink. Lives with her . FAMILY HISTORY: Positive for heart disease in her mom and her siblings and hypertension. REVIEW OF SYSTEMS: Denies any headache, double vision, blurry vision. Admits to shortness of breath and dry cough. Denies any fever or chills. Admits to chest tightness. Denies any focal weakness, tingling, numbness. Denies any discharge from the site of previous surgery. Denies any blood in the stool. Admits to diarrhea as mentioned in HPI. Denies any burning sensation in the urine or blood, but admits to some. Urinary frequency and urgency that is more than usual. Rest of the review of system is negative. HOME MEDICATIONS: 1. Aspirin. 2. Baclofen. 3. Carvedilol. 4. Vitamin D3. 5. Hydrochlorothiazide. 6. Lisinopril 20 mg daily. 7. Melatonin. 8. Protonix. 9. Rosuvastatin. 10. Warfarin 2.5 mg daily. 11. PRN Klonopin. ALLERGIES: THE PATIENT DOES HAVE ALLERGY TO LIPITOR, DILTIAZEM AND NIACIN. PHYSICAL EXAMINATION: GENERAL: The patient appears to be in mild distress. Obese. VITAL SIGNS: Temperature is 36.7, pulse is 83, respirations 18, blood pressure 116/80, pulse ox 95% on room air. HEAD, EYES, EARS, NOSE, AND THROAT: No jaundice, no pallor, moist mucous membranes. NECK: Supple. HEART: S1, S2, 2/6 murmur detected. No gallop. LUNGS: Clear to auscultation bilaterally. Normal chest wall expansion. ABDOMEN: Soft, nontender, nondistended. NEUROLOGIC: Awake, alert, oriented to time, place, and person. Moves all extremities. Sensation intact. Cranial nerves II-XII appear to be intact. MUSCULOSKELETAL: Normal range of motion. No edema or clubbing. SKIN: Pale, no rash, no jaundice. PSYCHIATRIC: Appropriate affect. Normal process of thinking. IMAGING: CT angiogram done yesterday as mentioned above. LABORATORY DATA: White blood cell count 8.9, hemoglobin 9.8 and platelets 531, BUN is 17, creatinine 1.1. Sodium 137, potassium 3.1. ASSESSMENT: 1. Diarrhea, rule out infectious cause. 2. Chest pain and chest tightness, possible musculoskeletal. 3. Recent deep venous thrombosis and pulmonary embolism, currently on Coumadin. 4. Coumadin coagulopathy with INR of 3.3. 5. Smith's esophagus. 6. Hypertension. 7. History of recurrent deep venous thrombosis. 8. Dyslipidemia. 9. Urinary frequency. PLAN: 1. Currently the patient's physical exam despite of her shortness of breath her physical exam might indicate some element of dehydration with clear lungs and history of diarrhea. Will start patient on gentle IV fluid hydration. 2. Admit patient to telemetry. 3. Obtain a 2D echo to rule out cardiac tamponade. 4. Consult radio director. Her radio director is Dr. Fuentes, currently Dr. Fink is covering. 5. 2D echo complete has been ordered. 6. Hold Coumadin and check INR in a.m. Please do not forget to restart Coumadin as soon as INR drops into therapeutic range. The patient was at 2.5 mg daily. Suggest to start on lower dose. 7. Ordered stool studies include C. diff, stool culture, giardia, white blood cells stool, occult blood in the stools. 8. Hold lisinopril and hydrochlorothiazide since the patient is slightly dehydrated. Will continue carvedilol. 9. Incentive spirometer and patient was instructed to use it 10 times per hour while awake. 10. Will order UA with urine culture and sensitivity if needed. 11. We will start the patient empirically on Lactinex to replenish her gut marlene. 12. When stable get PT, OT. MTDD
[2017-05-27] MEDS: SODIUM CHLORIDE 0.9% 1000ML 1,000 ML IV SCH (16:16)
[2017-05-27] MEDS: FAMOTIDINE IV INJ 20 MG in DEXTROSE 5% 100ML 100 ML IV SCH (16:16)
[2017-05-27] MEDS: LACTOBACILLUS ACIDOPHILUS 1 GM PACK PO SCH (16:17)
[2017-05-27 17:42] LABS: URINE APPEARANCE CLEAR (CLEAR); URINE BILIRUBIN NEG (NEG); URINE COLOR YELLOW; URINE NITRITE NEG (NEG); URINE PH 5.5 (4.5-7.5); URINE SPECIFIC GRAVITY 1.011 (1.000-1.030); UROBILINOGEN NEG (NEG); ZZUR CULT IF INDIC CLEAN CATCH NO
[2017-05-27 17:47] LABS: MANUAL MICROSCOPIC REQUIRED? NO; REVIEW REQ? NO
[2017-05-27 19:44] VITALS: BP 113/70; PULSE 84; TEMP 36.9; O2SAT 95
[2017-05-27] MEDS ORDERED: POTASSIUM CHLORIDE 20 MEQ TABCR PO ONE (19:45)
[2017-05-27] MEDS: ONDANSETRON 4MG OD TAB PO PRN (20:01)
[2017-05-27] MEDS: BACLOFEN 10 MG TAB PO SCH (21:06)
[2017-05-27] MEDS: ROSUVASTATIN CALCIUM 20 MG TAB PO SCH (21:06)
[2017-05-27] MEDS: CARVEDILOL 3.125 MG TAB PO SCH (21:08)
[2017-05-27 23:34] VITALS: BP 114/72; PULSE 71; TEMP 36.6; O2SAT 92
[2017-05-28 03:17] VITALS: BP 119/68; PULSE 76; TEMP 36.7; O2SAT 94
[2017-05-28] MEDS: FAMOTIDINE IV INJ 20 MG in DEXTROSE 5% 100ML 100 ML IV SCH (03:31)
[2017-05-28 07:00] LABS: BASO % 0.6 %; BASO ABS # 0.04 K/uL (0-0.2); COMPLETE YES; HEMATOCRIT 30.8 % (37-47); IG% 0.3 %; LYMPH % 19.2 %; LYMPH ABS # 1.27 K/uL (1.2-3.4); MEAN CELL VOLUME 88.3 fL (80-100); MEAN CORPUSCULAR HEMOGLOBIN 28.1 pg (25-34); MEAN CORPUSCULAR HGB CONC 31.8 g/dl (32-36); MEAN PLATELET VOLUME 9.1 fL (7.4-10.4); MONO % 11.4 %; NEUT % 63.5 %; PLATELET COUNT 466 K/uL (130-400); RED BLOOD COUNT 3.49 M/uL (4.2-5.4)
[2017-05-28 07:06] LABS: INR 3.2 (0.9-1.1); PROTHROMBIN TIME (PATIENT) 36.2 SECONDS (9.0-12.0)
[2017-05-28] MEDS ORDERED: PERFLUTREN LIPID MICROSPHERE (DEFINITY) IV ONE (07:25)
[2017-05-28] MEDS: LACTOBACILLUS ACIDOPHILUS 1 GM PACK PO SCH ×2 (07:36→11:49)
[2017-05-28] MEDS: CARVEDILOL 3.125 MG TAB PO SCH ×2 (07:37→20:24)
[2017-05-28] MEDS: ASPIRIN 81 MG ECTAB PO SCH (07:38)
[2017-05-28] MEDS: BACLOFEN 10 MG TAB PO SCH ×2 (07:38→20:23)
[2017-05-28] MEDS: HYDROCHLOROTHIAZIDE 25 MG TAB PO SCH (07:39)
[2017-05-28] MEDS: PANTOprazole SOD 40 MG TAB PO SCH (07:39)
[2017-05-28] MEDS: ONDANSETRON 4MG OD TAB PO PRN (07:41)
[2017-05-28 07:42] LABS: BUN/CREATININE RATIO 13.9 (10-20); CREATININE 0.81 mg/dl (0.60-1.20); MAGNESIUM 2.2 mg/dl (1.8-2.4); POTASSIUM 3.5 mmol/L (3.5-5.1)
[2017-05-28 07:44] LABS: ESTIMATED AVERAGE GLUCOSE 120 mg/dl; HA1C FLAG Normal (Normal)
[2017-05-28 07:45] LABS: ALB/GLOB RATIO 0.6 (0.9-2)
[2017-05-28 07:56] VITALS: BP 102/65; PULSE 81; TEMP 36.4; O2SAT 95
[2017-05-28 08:00] VITALS: O2SAT 95
--- NOTE | 2017-05-28 08:28 | Clinical Documentation Query ---
CLINICAL DOCUMENTATION QUERY 72 year old female who presents to the Emergency Room with complaints of constant chest tightness. H&P states this patient is being treated for PE/DVT that occured in April of 2017. Query #1/2 In your clinical opinion is this patient being managed for: ( ) Subacute PE/DVT treated with Warfarin therapy currently on hold for supratheraputic INR of 3.3. ( ) Completely resolved PE/DVT ( ) Other explanation of clinical findings (Please Explain) ( ) Unable to determine (Please Define) ( xx ) Need to Discuss ( ) Not Agree The medical record reflects the following clinical findings, treatment, and risk factors. Clinical Indicators: Recent (04/2017) deep venous thrombosis and pulmonary embolism, currently on Coumadin. Treatment: daily INR, Risk Factors: Age, recent aortic valve replacement. Query #2/2 In your clinical opinion is this patient being managed for: ( ) Chronic diastolic (preserved EF) CHF treated with continued diuretic therapy. ( ) Chronic systolic (reduced EF) CHF ( ) Other explanation of clinical findings (Please Explain) ( ) Unable to determine (Please Define) ( xx ) Need to Discuss ( ) Not Agree The medical record reflects the following clinical findings, treatment, and risk factors. Clinical Indicators: Patient on BID PO Lasix therapy Treatment: Continue while inpatient, echocardiosgram, daily weights, I/O' Risk Factors: Age, aortic valve replacement, Please clarify and document your clinical opinion in the progress notes and discharge summary. Terms such as "probable", "suspected", "likely", "questionable", "possible", or "still to be ruled out" are acceptable. IF IN AGREEMENT, YOU MUST DOCUMENT ABOVE DIAGNOSTIC STATEMENT IN DAILY PROGRESS NOTES AND DISCHARGE SUMMARY. This document is not part of the patient's record. Thank You, Ubaldo Krishnan, BRITTANEY [phone]
[2017-05-28] MEDS: CLONAZEPAM 0.5 MG TAB PO PRN (08:54)
[2017-05-28] MEDS: SODIUM CHLORIDE 0.9% 1000ML 1,000 ML IV SCH (11:50)
--- NOTE | 2017-05-28 11:51 | ECHOCARDIOGRAM REPORT ---
*NOTICE TO RECEIVING REPUBLICAN AGENCY This information is strictly Confidential and protected under [place] law. [place] law prohibits you from making any further disclosure of this information unless further disclosure is expressly permitted by the written consent of the person to whom it pertains or is authorized by law. A general authorization for the release of medical or other information is not sufficient for this purpose. Hospital accepts no responsibility if the information is made available to any other person, INCLUDING THE PATIENT. Interpretation Summary * Name: NEY VALDOVINOS Study Date: 05/28/2017 07:03 AM BP: 118/63 mmHg * Patient Location: C.2T\S\S240\S\1 HR: 102 * : 1945 (M/d/yyyy) Gender: Female Height: 63 in * Age: 72 yrs Ethnicity: [place] Weight: 213 lb * Ordering Physician: Yuliet Arvizu * Performed By: Tabatha Foster * * Reason For Study: CHEST PAIN * BSA: 2.0 m2 * -- Conclusions -- * Left ventricular systolic function is normal. * No regional wall motion abnormalities noted. * Ejection Fraction = 65-70%. * There is mild concentric left ventricular hypertrophy. * Grade I diastolic dysfunction, (abnormal relaxation pattern). * The prosthetic aortic valve is well-seated. * Small pericardial effusion. Procedure Details * A complete two-dimensional transthoracic echocardiogram was performed (2D, M-mode, Doppler and color flow Doppler). * The study was technically limited. * The study was technically difficult. * Limited views were obtained. * There were technical limitations due to patient'sbody habitus * A contrast injection of Definity was performed to improve assessment of LV function. * Contrast was injected into an intravenous site in the right arm. * One vial of Definity ultrasound contrast was diluted in normal saline to a total volume of 10 ml. A total of '3' ml of solution was administered during imaging. * Lot # [id number] of Definity utilized for procedure. * Expiration date 06/20. Left Ventricle * The left ventricle is normal in size. * There is mild concentric left ventricular hypertrophy. * Ejection Fraction = 65-70%. * Left ventricular systolic function is normal. * No regional wall motion abnormalities noted. Right Ventricle * Borderline right ventricular enlargement. * There is mild right ventricular hypertrophy. * The right ventricular systolic function is normal as assessed by tricuspid annular plane systolic excursion (TAPSE) (normal >1.5 cm). Atria * The left atrium is mildly dilated. * Right atrium not well visualized. * There is no evidence of atrial septal defect, but resolution does not allow assessment for a patent foramen ovale. Mitral Valve * The mitral valve is grossly normal. * There is no mitral valve stenosis. * Significant mitral regurgitation is absent. Tricuspid Valve * The tricuspid valve is not well visualized, but is grossly normal. * There is no tricuspid stenosis. * There is mild tricuspid regurgitation. Aortic Valve * There is no significant aortic regurgitation. * The prosthetic aortic valve is well-seated. * The gradient is normal for this prosthetic aortic valve. Pulmonic Valve * The pulmonary valve is not well seen, but the Doppler examination is normal without significant regurgitation or stenosis. Great Vessels * The aortic root and proximal ascending aorta are normal sized. * The pulmonary is not well visualized. Pericardium/Pleural * Small pericardial effusion. Great Vessels * Normal inferior vena cava size and collapsability with sniff indicates a normal right atrial pressure of 3 mmHg Left Ventricular Diastolic Function * Grade I diastolic dysfunction, (abnormal relaxation pattern). MMode 2D Measurements and Calculations IVSd 1.2 cm IVSs 1.8 cm LVIDd 4.9 cm LVIDs 3.1 cm LVPWd 1.5 cm LVPWs 2.3 cm IVS/LVPW 0.81 FS 36.4 % EDV(Teich) 113.3 ml ESV(Teich) 38.6 ml EF(Teich) 65.9 % EDV(cubed) 118.3 ml ESV(cubed) 30.5 ml EF(cubed) 74.2 % % IVS thick 53.6 % % LVPW thick 57.3 % LV mass(C)d 263.4 grams LV mass(C)dI 132.6 grams/m\S\2 LV mass(C)s 294.8 grams LV mass(C)sI 148.4 grams/m\S\2 SV(Teich) 74.6 ml SI(Teich) 37.6 ml/m\S\2 SV(cubed) 87.8 ml SI(cubed) 44.2 ml/m\S\2 asc Aorta Diam 3.4 cm LVOT diam 1.7 cm LVOT area 2.3 cm\S\2 LVAd ap4 25.4 cm\S\2 LVLd ap4 8.3 cm EDV(MOD-sp4) 62.8 ml EDV(sp4-el) 65.4 ml LVAs ap4 14.3 cm\S\2 LVLs ap4 7.6 cm ESV(MOD-sp4) 21.3 ml ESV(sp4-el) 22.8 ml EF(MOD-sp4) 66.0 % EF(sp4-el) 65.1 % LVAd ap2 27.3 cm\S\2 LVLd ap2 8.4 cm EDV(MOD-sp2) 75.2 ml EDV(sp2-el) 75.3 ml LVAs ap2 14.8 cm\S\2 LVLs ap2 7.0 cm ESV(MOD-sp2) 25.3 ml ESV(sp2-el) 26.4 ml EF(MOD-sp2) 66.4 % EF(sp2-el) 64.9 % LVLd %diff 0.50 % EDV(MOD-bp) 68.6 ml LVLs %diff -8.24 % ESV(MOD-bp) 24.0 ml EF(MOD-bp) 65.0 % SV(MOD-sp4) 41.4 ml SI(MOD-sp4) 20.9 ml/m\S\2 SV(MOD-sp2) 49.9 ml SI(MOD-sp2) 25.1 ml/m\S\2 SV(MOD-bp) 44.6 ml SI(MOD-bp) 22.4 ml/m\S\2 SV(sp4-el) 42.6 ml SI(sp4-el) 21.4 ml/m\S\2 SV(sp2-el) 48.8 ml SI(sp2-el) 24.6 ml/m\S\2 Doppler Measurements and Calculations MV E max enriqueta 96.9 cm/sec MV A max enriqueta 110.4 cm/sec MV E/A 0.88 MV dec time 0.26 sec Ao V2 max 229.1 cm/sec Ao max PG 21.0 mmHg Ao max PG (full) 15.8 mmHg Ao V2 mean 110.8 cm/sec Ao mean PG 6.8 mmHg Ao V2 VTI 36.4 cm EVAN(V,A) 1.1 cm\S\2 EVAN(V,D) 1.1 cm\S\2 LV V1 max PG 5.2 mmHg LV V1 max 114.5 cm/sec PA V2 max 96.0 cm/sec PA max PG 3.7 mmHg TR max enriqueta 246.0 cm/sec
[2017-05-28 12:00] VITALS: BP 101/62; PULSE 75; TEMP 36.9; O2SAT 96
--- NOTE | 2017-05-28 15:06 | Cardiology Consultation ---
Cardiology Consultation Date of Consultation: May 28, 2017. Attending Physician: Guera Reason for Consultation: Dyspnea, postop AVR History of Present Illness Mrs. Madsen is a very pleasant 72-year-old woman known to me from the outpatient setting with a history of hypertension, heterozygous for prothrombin gene mutation, hyperlipidemia, osteoarthritis, obstructive sleep apnea, GERD, fatty liver disease and severe aortic stenosis status post minimally invasive AVR more than 1 month ago and recent PE/DVT now on coumadin who was admitted yesterday in the setting of dyspnea, pleuritic chest discomfort and general malaise. Patient was previously admitted to [facility] 2 weeks the setting acute shortness/ chest tightness and was found to small subsegmental PEs distal DVT imaging. She was started anticoagulation was eventually transitioned to Coumadin. Since that time her INRs have been largely therapeutic. Since her hospitalization she has continued to feel generally weak with significantly limited exercise tolerance. Over the last several days she reported increased fatigue which was associated with intermittent diarrhea and abdominal discomfort. In addition she has noted persistent exertional shortness of breath and pleuritic chest pain. She denies any associated fevers , chills. Denies any bleeding. Denies any productive cough. Initial workup in the emergency department remarkable for a CTA which showed stable right moderate pleural effusion. Was admitted overnight to telemetry and started on gentle IV fluids. This a.m. patient states continues to feel just okay. Denies any additional diarrhea since admission. Prior cardiovascular history: Aortic valve replacement (04/11/2017): Dr. Romero, [facility] [place], minimally invasive AVR via right mini thoracotomy, #21 [employer] Elite pericardial valve Cardiac catheterization (03/2017): Left main luminal irregularities; lad 20-30 percent mid moderate 2nd diagonal 20-30 percent ostial; circumflex luminal irregularities; RCA dominant, luminal irregularities. RA 9, RV 35/11, PA 37/19 (27), PCW 15, aortic sat 92, PA sat 65, cardiac output 5.5 index 2.7 Echo (03/2017): Normal LV size, mild LVH, EF 55-60 percent, borderline dilated RV with normal RV function. Severe (peak velocity 4.57, mean gradient 55, aortic valve area 0.67), grade 1 diastolic dysfunction Past Medical/Surgical History hypertension, prior right bundle-branch block, recent PE/DVT, heterozygous for prothrombin gene mutation, hyperlipidemia, osteoarthritis, obstructive sleep apnea, GERD, fatty liver disease and severe aortic stenosis Family History Diabetes mellitus FH: cancer FH: heart disease FH: lung disease Gallbladder disease Hypertension Kidney disease Kidney stones Social History Smoking Status: Never Smoker History of Alcohol Use: Yes (RARELY) Review of Systems 10 point review of systems was completed and was otherwise negative unless stated in HPI Allergies Coded Allergies: Niacin (Verified Allergy, Intermediate, RASH, 05/11/17) Atorvastatin (Verified Adverse Reaction, Mild, MUSCLE ACHES, 05/14/17) Diltiazem (Verified Adverse Reaction, Mild, HEADACHE, 05/14/17) Medications Current Inpatient Medications Medications (Trade) Dose Ordered Sig/[place]ora Route Start Time Stop Time Status Last Admin Dose Admin Aspirin (Ecotrin Tab) 81 mg QAM PO 05/28/17 09:00 06/27/17 08:59 05/28/17 07:38 81 MG Baclofen (Lioresal Tab) 10 mg BID PO 05/27/17 21:00 06/26/17 20:59 05/28/17 07:38 10 MG Carvedilol (Coreg Tab) 3.125 mg BID PO 05/27/17 21:00 06/26/17 20:59 05/28/17 07:37 3.125 MG Clonazepam (Klonopin Tab) 0.25 mg DAILY PRN PO 05/27/17 14:15 06/26/17 14:14 05/28/17 08:54 0.25 MG Hydrochlorothiazide (Hydrochlorothiazide Tab) 25 mg QAM PO 05/28/17 09:00 06/27/17 08:59 05/28/17 07:39 25 MG Pantoprazole Sodium (Protonix Tab) 40 mg DAILY PO 05/28/17 09:00 06/27/17 08:59 05/28/17 07:39 40 MG Rosuvastatin Calcium (Crestor Tab) 20 mg HS PO 05/27/17 21:00 06/26/17 20:59 05/27/17 21:06 20 MG Sodium Chloride 1,000 ml @ 50 mls/hr Q20H IV 05/27/17 15:45 06/26/17 15:44 05/28/17 11:50 50 MLS/HR Acetaminophen (Tylenol Tab) 650 mg Q4H PRN PO 05/27/17 14:15 06/26/17 14:14 Al Hydrox/Mg Hydrox/Simethicone (Maalox Max Susp) 15 ml Q4H PRN PO 05/27/17 14:15 06/26/17 14:14 05/27/17 19:39 15 ML Magnesium Hydroxide (Milk Of Magnesia Susp) 30 ml Q12H PRN PO 05/27/17 14:15 06/26/17 14:14 Zolpidem Tartrate (Ambien Tab) 5 mg HSZ PRN PO 05/27/17 14:15 06/26/17 14:14 Nitroglycerin (Nitrostat Tab) 0.4 mg UD PRN SL 05/27/17 14:15 06/26/17 14:14 Famotidine 20 mg/ Dextrose 102 ml @ 200 mls/hr Q12H IV 05/27/17 16:00 06/26/17 15:59 05/28/17 03:31 200 MLS/HR Lactobacillus Acidophilus (Lactinex Granules Pack) 1 gm TIDM PO 05/27/17 16:45 06/26/17 17:59 05/28/17 11:49 1 GM Ondansetron HCl (Zofran Odt) 4 mg Q4H PRN PO 05/27/17 19:45 06/26/17 19:44 05/28/17 07:41 4 MG Physical Exam Vital Signs Past 12 Hours Date Time Temp Pulse Resp B/P (MAP) Pulse Ox O2 Delivery O2 Flow Rate FiO2 05/28/17 12:00 36.9 75 16 101/62 (75) 96 Room Air 05/28/17 12:00 Room Air 05/28/17 08:00 95 Room Air 05/28/17 07:56 36.4 81 18 102/65 (77) 95 Room Air 05/28/17 04:00 Room Air 05/28/17 03:17 36.7 76 20 119/68 (85) 94 Room Air General: Comfortable, no acute distress Eyes: Sclerae anicteric, extraocular movements intact HENT: Oropharynx clear mucous membranes moist Neck: Supple, no lymphadenopathy, no thyromegaly. Lungs: Clear to auscultation bilaterally, no rhonchi or wheezes. Incision site well healed Cardiac: Regular rate and rhythm, 2/6 systolic ejection murmur, crisp bioprosthetic closure sound, no rubs or gallops. No JVD. No peripheral edema. Extremities well perfused. Vascular: Normal carotid upstrokes, no bruits. 2+ radial, femoral, DP and PT pulses. No varicosities. Abdomen: Soft, nontender, nondistended positive bowel sounds. No hepatosplenomegaly Musculoskeletal: Normal gait. No joint deformities Skin: No rashes or lesions. Neuro: Cranial nerves 2-12 grossly intact, remainder exam nonfocal Psych: Alert orient x3, normal affect and mood Data Laboratory Results: Last 24 Hours Test 05/27/17 17:27 05/28/17 06:32 Urine Color YELLOW Urine Appearance CLEAR Urine pH 5.5 Urine Specific [place] 1.011 Urine Protein NEG Urine Glucose (UA) NEG Urine Ketones NEG Urine Occult Blood 1+ Urine Nitrite NEG Urine Bilirubin NEG Urine Urobilinogen NEG Urine Leukocyte Esterase NEG Urine WBC (Auto) 1-5 /hpf Urine RBC (Auto) 0-4 /hpf Urine Hyaline Casts (Auto) 0 /lpf Urine Epithelial Cells (Auto) 10-20 /lpf Urine Bacteria (Auto) NEG White Blood Count 6.60 K/uL Red Blood Count 3.49 M/uL Hemoglobin 9.8 g/dL Hematocrit 30.8 % Mean Corpuscular Volume 88.3 fL Mean Corpuscular Hemoglobin 28.1 pg Mean Corpuscular Hemoglobin Concent 31.8 g/dl Platelet Count 466 K/uL Mean Platelet Volume 9.1 fL Neutrophils (%) (Auto) 63.5 % Lymphocytes (%) (Auto) 19.2 % Monocytes (%) (Auto) 11.4 % Eosinophils (%) (Auto) 5.0 % Basophils (%) (Auto) 0.6 % Neutrophils # (Auto) 4.19 K/uL Lymphocytes # (Auto) 1.27 K/uL Monocytes # (Auto) 0.75 K/uL Eosinophils # (Auto) 0.33 K/uL Basophils # (Auto) 0.04 K/uL RDW Standard Deviation 49.0 fL RDW Coefficient of Variation 15.2 % Immature Granulocyte % (Auto) 0.3 % Immature Granulocyte # (Auto) 0.02 K/uL Prothrombin Time 36.2 SECONDS Prothromb Time International Ratio 3.2 Sodium Level 141 mmol/L Potassium Level 3.5 mmol/L Chloride Level 109 mmol/L Carbon Dioxide Level 28 mmol/L Anion Gap 4.0 mmol/L Blood Urea Nitrogen 11 mg/dl Creatinine 0.81 mg/dl Est Creatinine Clear Calc Drug Dose 70.9 ml/min Estimated GFR () 84.7 Estimated GFR (Non- 73.1 BUN/Creatinine Ratio 13.9 Random Glucose 99 mg/dl Estimated Average Glucose 120 mg/dl Hemoglobin A1c 5.8 % Calcium Level 9.0 mg/dl Magnesium Level 2.2 mg/dl Total Bilirubin 0.3 mg/dl Aspartate Amino Transf (AST/SGOT) 12 U/L Alanine Aminotransferase (ALT/SGPT) 16 U/L Alkaline Phosphatase 91 U/L Total Protein 7.1 gm/dl Albumin 2.7 gm/dl Globulin 4.4 gm/dl Albumin/Globulin Ratio 0.6 Imaging: Stable moderate right side pleural effusion, small pericardial effusion , stable right chest wall fluid collection EKG: sinus rhythm, chronic right bundle-branch block, no significant ST changes Telemetry reviewed: No significant events ECHO: Normal LV function, EF 65 percent, no regional wall motion abnormalities , normal RV function, small pericardial effusion-- not hemodynamically significant. Assessment & Plan 1. Malaise, shortness of breath, pleuritic chest pain 2. Status post recent minimally invasive AVR for severe aortic stenosis; small residual pericardial effusion 3. Moderate right pleural effusion 4. Small segmental/subsegmental PEs, distal DVT--history of prior VTE, heterozygous prothrombin gene mutation 5. Resolving diarrhea 6. Anemia 7. Hypertension Patient continues to recover slowly from her aortic valve replacement now more than a month ago. Patient feeling somewhat improved today after IV fluids overnight, presenting diarrhea has largely resolved. Continues to have limiting shortness of breath and some pleuritic chest pain. Initial workup has been largely unremarkable aside from stable moderate pleural effusion. Reviewed patient's echocardiogram and LV function, bioprosthetic valve function appears normal. Small pericardial effusion does not appear to be hemodynamically significant. Overall from a cardiac standpoint patient remains stable. Persistent moderate pleural effusion may be causing some of patients symptoms and slowing her recovery. May also have some degree of contributing post-pericardiotomy pericarditis. Recommend - -- evaluation for possible thoracentesis -- start colchicine 0.6 mg bid and low dose NSAIDs while on anticoagulation -- no other changes to cardiac regimen at this time. Will continue to follow.
[2017-05-28] MEDS ORDERED: KETOROLAC TROMETHAMINE 15 MG/ML VIAL IV. STA (15:30)
[2017-05-28 15:48] VITALS: BP_SYST 112; BP_SYST 97; BP_DIAS 56; BP_DIAS 71; PULSE 65; PULSE 83; TEMP 36.6; TEMP 36.7; O2SAT 94; O2SAT 96
[2017-05-28] MEDS: LACTOBACILLUS ACIDOPHILUS (FLORANEX) TAB PO SCH (16:49)
[2017-05-28 19:39] VITALS: BP 119/74; PULSE 79; TEMP 36.5; O2SAT 94
[2017-05-28] MEDS: COLCHICINE 0.6 MG TAB PO SCH (20:22)
[2017-05-28] MEDS: IBUPROFEN 200 MG TAB PO SCH (20:22)
[2017-05-28] MEDS: ROSUVASTATIN CALCIUM 20 MG TAB PO SCH (20:23)
[2017-05-28] MEDS: FAMOTIDINE 20 MG TAB PO SCH (20:23)
--- NOTE | 2017-05-28 21:06 | Progress Note ---
Subjective Date of Service: May 28, 2017. Subjective Pt evaluation today including: conversation w/ patient, conversation w/ family (multiple, at bedside), physical exam, chart review, lab review, review of studies (CT chest dissection protocol, echo), conversation w/ field service consultant ( cardiology), review of inpatient medication list Pain: central chest, pleuritic, worse with laying flat PO Intake: improving slowly Voiding: no voiding problems tele stable overnight no diarrhea since yesterday AM (took immodium and peptobismal yesterday) she continues with pleuritic type pain over the substernal area, worse with laying down and improved with sitting up denies dyspnea denies cough denies ANY pleuritic pain over the right hemithorax denies fever/chills had mild upper abdominal discomfort yesterday - this is resolved again no further diarrhea Problem List Medical Problems: (1) Acute diverticulitis Status: Acute (2) Back pain Status: Acute (3) Mild dehydration Status: Acute (4) Pleural effusion Status: Acute (5) Pulmonary emboli Status: Acute (6) Shortness of breath Status: Acute Review of Systems Respiratory: No cough, No sputum, No wheezing, No shortness of breath, No dyspnea on exertion Cardiac: + chest pain, No orthopnea, No PND, No edema, No claudication, No palpitations Abdomen: No pain, No nausea, No vomiting, No diarrhea Objective Vital Signs Date Time Temp Pulse Resp B/P (MAP) Pulse Ox O2 Delivery O2 Flow Rate FiO2 05/28/17 16:00 Room Air 05/28/17 15:48 36.6 83 19 112/71 (85) 96 Room Air 05/28/17 12:00 36.9 75 16 101/62 (75) 96 Room Air 05/28/17 12:00 Room Air 05/28/17 08:00 95 Room Air 05/28/17 07:56 36.4 81 18 102/65 (77) 95 Room Air 05/28/17 04:00 Room Air 05/28/17 03:17 36.7 76 20 119/68 (85) 94 Room Air 05/28/17 00:00 Room Air 05/27/17 23:34 36.6 71 16 114/72 (86) 92 Room Air Physical Exam General Appearance: no apparent distress ENT: pharynx normal Neck: no JVD Respiratory/Chest: no respiratory distress, no accessory muscle use, + decreased breath sounds (very mild, right base, with minimal dullness to percussion) Cardiovascular: regular rate, rhythm, no gallop, + systolic murmur (1/6 RUSB) Abdomen: normal bowel sounds, non tender, soft, no organomegaly Extremities: no pedal edema Neurologic/Psychiatric: alert, oriented x 3 Skin: + pertinent finding (well-healed scar over upper right chest near the sternum) Laboratory Results Last 24 Hours Test 05/28/17 06:32 White Blood Count 6.60 K/uL Red Blood Count 3.49 M/uL Hemoglobin 9.8 g/dL Hematocrit 30.8 % Mean Corpuscular Volume 88.3 fL Mean Corpuscular Hemoglobin 28.1 pg Mean Corpuscular Hemoglobin Concent 31.8 g/dl Platelet Count 466 K/uL Mean Platelet Volume 9.1 fL Neutrophils (%) (Auto) 63.5 % Lymphocytes (%) (Auto) 19.2 % Monocytes (%) (Auto) 11.4 % Eosinophils (%) (Auto) 5.0 % Basophils (%) (Auto) 0.6 % Neutrophils # (Auto) 4.19 K/uL Lymphocytes # (Auto) 1.27 K/uL Monocytes # (Auto) 0.75 K/uL Eosinophils # (Auto) 0.33 K/uL Basophils # (Auto) 0.04 K/uL RDW Standard Deviation 49.0 fL RDW Coefficient of Variation 15.2 % Immature Granulocyte % (Auto) 0.3 % Immature Granulocyte # (Auto) 0.02 K/uL Prothrombin Time 36.2 SECONDS Prothromb Time International Ratio 3.2 Sodium Level 141 mmol/L Potassium Level 3.5 mmol/L Chloride Level 109 mmol/L Carbon Dioxide Level 28 mmol/L Anion Gap 4.0 mmol/L Blood Urea Nitrogen 11 mg/dl Creatinine 0.81 mg/dl Est Creatinine Clear Calc Drug Dose 70.9 ml/min Estimated GFR () 84.7 Estimated GFR (Non- 73.1 BUN/Creatinine Ratio 13.9 Random Glucose 99 mg/dl Estimated Average Glucose 120 mg/dl Hemoglobin A1c 5.8 % Calcium Level 9.0 mg/dl Magnesium Level 2.2 mg/dl Total Bilirubin 0.3 mg/dl Aspartate Amino Transf (AST/SGOT) 12 U/L Alanine Aminotransferase (ALT/SGPT) 16 U/L Alkaline Phosphatase 91 U/L Total Protein 7.1 gm/dl Albumin 2.7 gm/dl Globulin 4.4 gm/dl Albumin/Globulin Ratio 0.6 Assessment and Plan 72yo female with: 1. diarrhea - resolved s/p use of immodium and pepto-bismal at home yesterday. No GI symptoms today. If diarrhea recurs then c. diff toxin, stool cx, etc. 2. pleuritic chest pain - the location of the pain is central over the sternum. She does not report any pain over the right chest. Gave a dose of toradol this afternoon with improvement in the pleuritic pain over the sternal region. Although the pleural effusion on the right could contribute to some of her symptoms I feel that the pericardial effusion is the more likely culprit causing some element of pericarditis. I agree with Dr. Fuentes to start colchicine 0.6mg BID. Will also start motrin 400mg TID - will need to be vigilant with her INRs daily. If her symptoms do not improve or worsen, OR her symptoms start to refer more to the right chest, then I agree we should check a chest u/s to quantify the effusion and see if it is large enough to safely perform thoracentesis. I do not feel that her recent PEs are causing her pain. I also do not feel that the mediastinal fluid collection is the primary culprit as the imaging studies suggest it is getting smaller. 3. right-sided pleural effusion - appears mild on cxr and mild-mod on CT. Could be due to her recent surgery, PEs, etc. See #2 above. Consider work-up for this if she fails to improve with her symptoms, worsens, etc. 4. s/p AVR for aortic stenosis - echo today with normal valve function. 5. recent DVTs with PEs - on coumadin. INR today 3.2. Will hold coumadin today in the event she would need thoracentesis in the future. 6. anemia - likely multifactorial - blood loss from recent surgery, multiple blood draws during 3 admissions, etc. Start ferrous sulfate replacement. 7. HTN - controlled with current BP meds. 8. Smith's esophagus - PPI + H2 danny. Will need to use caution with NSAIDs given her upper GI history. She is also on low-dose aspirin. Could consider doubling PPI to BID dosing while on motrin for #2. 9. insomnia - clonazepam 0.5mg at HS. 10. FEN - cont NS at 50cc/hr until PO intake improves; BMP in am; lytes are stable. 11. DVT proph - coumadin. family updated Continued [facility] stay due to: multiple IV medications needed, other (pleuritic pain ) Discharge planning: home
[2017-05-28] MEDS: CLONAZEPAM 0.5 MG TAB PO SCH (23:47)
[2017-05-29] VITALS (7 sets, daily range): BP systolic 103–156; BP diastolic 64–81; PULSE 69–76; TEMP 36.4–36.8; O2SAT 94–95
[2017-05-29] MEDS: BACLOFEN 10 MG TAB PO SCH ×2 (07:41→21:21)
[2017-05-29] MEDS: HYDROCHLOROTHIAZIDE 25 MG TAB PO SCH (07:41)
[2017-05-29] MEDS: FERROUS SULFATE 325 MG TAB PO SCH ×2 (07:41→16:20)
[2017-05-29] MEDS: CARVEDILOL 3.125 MG TAB PO SCH ×2 (07:41→21:21)
[2017-05-29] MEDS: FAMOTIDINE 20 MG TAB PO SCH ×2 (07:42→21:20)
[2017-05-29] MEDS: LACTOBACILLUS ACIDOPHILUS (FLORANEX) TAB PO SCH ×3 (07:42→16:20)
[2017-05-29] MEDS: COLCHICINE 0.6 MG TAB PO SCH ×2 (07:42→21:21)
[2017-05-29] MEDS: PANTOprazole SOD 40 MG TAB PO SCH (07:42)
[2017-05-29] MEDS: IBUPROFEN 200 MG TAB PO SCH ×3 (07:43→21:21)
[2017-05-29] MEDS: ASPIRIN 81 MG ECTAB PO SCH (07:43)
[2017-05-29] MEDS: SODIUM CHLORIDE 0.9% 1000ML 1,000 ML IV SCH (07:47)
[2017-05-29 08:02] LABS: HEMATOCRIT 29.4 % (37-47); MEAN CELL VOLUME 88.6 fL (80-100); MEAN CORPUSCULAR HEMOGLOBIN 26.8 pg (25-34); MEAN CORPUSCULAR HGB CONC 30.3 g/dl (32-36); MEAN PLATELET VOLUME 8.9 fL (7.4-10.4); PLATELET COUNT 450 K/uL (130-400); RED BLOOD COUNT 3.32 M/uL (4.2-5.4); WHITE BLOOD COUNT 6.56 K/uL (4.8-10.8)
[2017-05-29 08:14] LABS: INR 2.2 (0.9-1.1); PROTHROMBIN TIME (PATIENT) 24.1 SECONDS (9.0-12.0)
[2017-05-29 08:39] LABS: BUN/CREATININE RATIO 17.1 (10-20); CALCIUM 8.9 mg/dl (8.5-10.1); CREATININE 0.87 mg/dl (0.60-1.20); POTASSIUM 3.6 mmol/L (3.5-5.1)
--- NOTE | 2017-05-29 14:01 | Cardiology Follow-Up ---
Subjective Subjective Date of Service: May 29, 2017. Pt evaluation today including: conversation w/ patient, conversation w/ family , physical exam, chart review, lab review, review of studies, review of inpatient medication list Additional Details: pleuritic chest pain somewhat improved today still with tightness across her abdomen some mild diarrhea over night. Problem List Medical Problems: (1) Acute diverticulitis Status: Acute (2) Back pain Status: Acute (3) Mild dehydration Status: Acute (4) Pleural effusion Status: Acute (5) Pulmonary emboli Status: Acute (6) Shortness of breath Status: Acute Review of Systems Respiratory: No cough, No sputum, No wheezing, No shortness of breath, No dyspnea on exertion Cardiac: + chest pain, No orthopnea, No PND, No edema, No claudication, No palpitations Abdomen: + pain, + diarrhea, No nausea, No vomiting Musculoskeletal: + problem reported Heme: No abnormal bleeding/bruising Endo: + fatigue Skin: No rash Objective Vital Signs Last Vital Signs Documentation Date Time Temp Pulse Resp B/P (MAP) Pulse Ox O2 Delivery O2 Flow Rate FiO2 05/29/17 12:00 Room Air 05/29/17 11:31 36.4 69 20 114/64 (81) 94 05/28/17 15:48 Physical Exam: General Appearance: no apparent distress ENT: pharynx normal Neck: no JVD Respiratory/Chest: no respiratory distress, no accessory muscle use, + decreased breath sounds (at right base) Cardiovascular: regular rate, rhythm, no gallop, + systolic murmur (1/6 RUSB bioprosthetic valve closure) Abdomen: normal bowel sounds, non tender, soft Extremities: no pedal edema Neurologic/Psychiatric: alert, oriented x 3 Skin: + pertinent finding (well-healed scar over upper right chest near the sternum) Lymphatic: no adenopathy Assessment and Plan 1. Malaise, shortness of breath, pleuritic chest pain 2. Status post recent minimally invasive AVR for severe aortic stenosis; small residual pericardial effusion 3. Moderate right pleural effusion 4. Small segmental/subsegmental PEs, distal DVT--history of prior VTE, heterozygous prothrombin gene mutation 5. Resolving diarrhea 6. Anemia 7. Hypertension -- consider evaluation for possible thoracentesis -- on colchicine 0.6 mg bid and low dose NSAIDs for possible pericarditis -- no other changes to cardiac regimen at this time. Will continue to follow. Continued [facility] stay due to: multiple IV medications needed, other (pleuritic pain ) Discharge planning: home Medications: Reported Home Medications Medications Dose Route/Sig Max Daily Dose Days Date Category Protonix (Pantoprazole Sodium) 40 Mg Tab 40 Mg PO DAILY 05/27/17 Reported Coumadin (Warfarin Sod) 2.5 Mg Tab 2.5 Mg PO DAILY 05/27/17 Reported Rosuvastatin Calcium 20 Mg Tab 20 Mg PO HS 05/11/17 Reported Vitamin D3 (Cholecalciferol) 2,000 Unit Cap 1 Cap PO DAILY 30 03/27/17 Reported Meladox (Melatonin) 3 Mg Tab 0.5 Tab PO HS 03/27/17 Reported Klonopin (Clonazepam) 0.5 Mg Tab 0.25 Mg PO DAILY PRN 10/25/15 Reported Lioresal (Baclofen) 10 Mg Tab 10 Mg PO BID 10/25/15 Reported Aspirin Ec (Aspirin) 81 Mg Tab 81 Mg PO QAM 05/09/13 Reported Hctz (Hydrochlorothiazide) 25 Mg Tab 25 Mg PO QAM 05/09/13 Reported Zestril (Lisinopril) 20 Mg Tab 20 Mg PO QAM 05/09/13 Reported Coreg (Carvedilol) 3.125 Mg Tab 3.125 Mg PO BID 05/09/13 Reported Lab Results: 05/29/17 07:30 05/29/17 07:30 Test 05/28/17 23:40 05/29/17 07:30 Red Blood Count 3.32 M/uL (4.2-5.4) Mean Corpuscular Volume 88.6 fL (80-100) Mean Corpuscular Hemoglobin 26.8 pg (25-34) Mean Corpuscular Hemoglobin Concent 30.3 g/dl (32-36) RDW Standard Deviation 49.1 fL (36.4-46.3) RDW Coefficient of Variation 15.1 % (11.5-14.5) Mean Platelet Volume 8.9 fL (7.4-10.4) Prothrombin Time 24.1 SECONDS (9.0-12.0) Prothromb Time International Ratio 2.2 (0.9-1.1) Anion Gap 5.0 mmol/L (3-11) Est Creatinine Clear Calc Drug Dose 66.1 ml/min Estimated GFR () 77.7 Estimated GFR (Non- 67.0 BUN/Creatinine Ratio 17.1 (10-20) Calcium Level 8.9 mg/dl (8.5-10.1)
--- NOTE | 2017-05-29 19:22 | Progress Note ---
Subjective Date of Service: May 29, 2017. Subjective pt is feeling slightly improved and was walking the louie, Dr Fuentes would like her evaluated for possible thoracentesis for comfort, will need to asses volume of thoracentesis to determine is significant Problem List Medical Problems: (1) Acute diverticulitis Status: Acute (2) Back pain Status: Acute (3) Mild dehydration Status: Acute (4) Pleural effusion Status: Acute (5) Pulmonary emboli Status: Acute (6) Shortness of breath Status: Acute Review of Systems Constitutional: No fever, No chills, No weakness, No fatigue Respiratory: + shortness of breath, + dyspnea on exertion, No cough, No sputum Cardiac: No chest pain, No orthopnea, No PND, No edema Abdomen: No pain, No nausea, No vomiting, No diarrhea Female : No dysuria, No urinary frequency Neurologic: No memory loss, No paralysis Psychiatric: No depression symptoms, No anhedonism Objective Vital Signs Date Time Temp Pulse Resp B/P (MAP) Pulse Ox O2 Delivery O2 Flow Rate FiO2 05/29/17 04:17 36.6 72 18 108/73 (85) 95 Room Air 05/29/17 04:00 Room Air 05/29/17 00:00 36.5 76 18 103/69 (80) 95 Room Air 05/28/17 23:59 Room Air 05/28/17 20:00 Room Air 05/28/17 19:39 36.5 79 19 119/74 (89) 94 Room Air 05/28/17 16:00 Room Air 05/28/17 15:48 36.6 83 19 112/71 (85) 96 Room Air 05/28/17 12:00 36.9 75 16 101/62 (75) 96 Room Air 05/28/17 12:00 Room Air 05/28/17 08:00 95 Room Air 05/28/17 07:56 36.4 81 18 102/65 (77) 95 Room Air Physical Exam General Appearance: WD/WN, + mild distress Neck: supple, no JVD Respiratory/Chest: no respiratory distress, + decreased breath sounds Cardiovascular: regular rate, rhythm, + systolic murmur Abdomen: normal bowel sounds, non tender, soft Extremities: no calf tenderness, + pedal edema (trace) Neurologic/Psychiatric: alert, oriented x 3 Laboratory Results Last 24 Hours Test 05/28/17 23:40 05/29/17 04:44 Assessment and Plan 72yo female with recent tavr presents with pleuritic chest pain, pericardial and pleural effusions and small PE's pleuritic chest pain - pericardial effusion colchicine 0.6mg BID and motrin 400mg TID right-sided pleural effusion - appears mild on cxr and mild-mod on CT, will have ultrasound to determine volume and if worth risk of pneumothorax with thoracentesis, the pt has improved with medical care and is now on room air s/p AVR for aortic stenosis - echo normal EF and some DD, with normal valve function. DVTs with PEs - on coumadin , is at risk with prothrombin gene mutation anemia - likely multifactorial - acute blood loss from recent surgery Smith's esophagus - PPI + H2 danny. insomnia - clonazepam 0.5mg at HS. DVT proph - coumadin. Continued [facility] stay due to: multiple IV medications needed, other (pleuritic pain ) Discharge planning: home
--- NOTE | 2017-05-29 20:12 | DIAGNOSTIC IMAGING REPORT ---
EFFUSION-CHEST/MEDIASTINUM HISTORY: 72 years-old Female right-sided pleural effusion follow-up study. COMPARISON: Chest radiograph 05/27/2017, CT of the chest 05/26/2017 TECHNIQUE: Multiple real-time sonographic images of the right and left thoracic cavity were obtained assessing grayscale appearance. FINDINGS: Moderate size right pleural effusion is again seen with fluid collection measuring up to 9.0 x 8.2 x 11.3 cm with volume of 441 mL No associated significant complexity or loculated component is identified. Atelectatic right lower lobe is noted on the last image. Comparison images of the left lung base were obtained which showed no significant left pleural fluid. IMPRESSION: Moderate sized right pleural effusion redemonstrated with volume of approximately 441 mL. No significant left-sided pleural fluid identified. The above report was generated using voice recognition software. It may contain grammatical, syntax or spelling errors. Electronically signed by: Demario Vargas M.D. 05/29/2017 8:11 PM Dictated Date/Time: 05/29/2017 8:08 PM
[2017-05-29] MEDS: CLONAZEPAM 0.5 MG TAB PO SCH (21:20)
[2017-05-29] MEDS: ROSUVASTATIN CALCIUM 20 MG TAB PO SCH (21:21)
[2017-05-30 03:43] VITALS: BP 125/80; PULSE 71; TEMP 36.6; O2SAT 96
[2017-05-30] MEDS: SODIUM CHLORIDE 0.9% 1000ML 1,000 ML IV SCH (05:59)
[2017-05-30 08:06] VITALS: BP 156/83; PULSE 81; TEMP 36.7; O2SAT 94
[2017-05-30] MEDS: FERROUS SULFATE 325 MG TAB PO SCH (08:09)
[2017-05-30] MEDS: LACTOBACILLUS ACIDOPHILUS (FLORANEX) TAB PO SCH ×2 (08:10→11:45)
[2017-05-30] MEDS: BACLOFEN 10 MG TAB PO SCH (08:54)
[2017-05-30] MEDS: PANTOprazole SOD 40 MG TAB PO SCH (08:54)
[2017-05-30] MEDS: ASPIRIN 81 MG ECTAB PO SCH (08:54)
[2017-05-30] MEDS: HYDROCHLOROTHIAZIDE 25 MG TAB PO SCH (08:55)
[2017-05-30] MEDS: FAMOTIDINE 20 MG TAB PO SCH (08:55)
[2017-05-30] MEDS: IBUPROFEN 200 MG TAB PO SCH ×2 (08:55→14:24)
[2017-05-30] MEDS: COLCHICINE 0.6 MG TAB PO SCH (08:56)
[2017-05-30] MEDS: CARVEDILOL 3.125 MG TAB PO SCH (08:56)
[2017-05-30 11:00] VITALS: BP 138/74; PULSE 79; TEMP 36.7; O2SAT 95
[2017-05-30] MEDS: CLONAZEPAM 0.5 MG TAB PO PRN (11:45)
[2017-05-30 12:00] VITALS: O2SAT 95
--- NOTE | 2017-05-30 13:30 | Cardiology Follow-Up ---
Subjective Subjective Date of Service: May 30, 2017. Pt evaluation today including: conversation w/ patient, physical exam, chart review, lab review, review of studies, review of inpatient medication list Additional Details: Still with some mild right sided tightness. No other new complaints. Tele reviewed -- no events Problem List Medical Problems: (1) Acute diverticulitis Status: Acute (2) Back pain Status: Acute (3) Mild dehydration Status: Acute (4) Pleural effusion Status: Acute (5) Pulmonary emboli Status: Acute (6) Shortness of breath Status: Acute Review of Systems Constitutional: No fever, No chills, No weakness, No fatigue Respiratory: + shortness of breath, + dyspnea on exertion, No cough, No sputum Cardiac: No chest pain, No orthopnea, No PND, No edema Abdomen: No pain, No nausea, No vomiting, No diarrhea Musculoskeletal: + problem reported Female : No dysuria, No urinary frequency Neurologic: No memory loss, No paralysis Psychiatric: No depression symptoms, No anhedonism Heme: No abnormal bleeding/bruising Endo: + fatigue Skin: No rash Objective Vital Signs Last Vital Signs Documentation Date Time Temp Pulse Resp B/P (MAP) Pulse Ox O2 Delivery O2 Flow Rate FiO2 05/30/17 12:00 95 Room Air 05/30/17 11:00 36.7 79 20 138/74 (95) 05/28/17 15:48 Physical Exam: General Appearance: no apparent distress ENT: pharynx normal Neck: supple, no JVD Respiratory/Chest: no respiratory distress, + decreased breath sounds (at right base) Cardiovascular: regular rate, rhythm, + systolic murmur Abdomen: normal bowel sounds, non tender, soft Extremities: no calf tenderness, + pedal edema (trace) Neurologic/Psychiatric: alert, oriented x 3 Skin: normal color, warm/dry, no rash, + pertinent finding (well-healed scar over upper right chest near the sternum) Assessment and Plan 1. Malaise, shortness of breath, pleuritic chest pain 2. Status post recent minimally invasive AVR for severe aortic stenosis; small residual pericardial effusion 3. Mild - Moderate right pleural effusion 4. Small segmental/subsegmental PEs, distal DVT--history of prior VTE, heterozygous prothrombin gene mutation 5. Resolving diarrhea 6. Anemia 7. Hypertension Patient appears stable from a cardiac standpoint. Continues to slowly improve from her AVR. -- Agree with continued colchicine/NSAIDs for possible pericarditis. -- Ok with holding off on thoracentesis for now. From a cardiac standpoint feel stable for discharge with follow-up with Cardiology in 3-4 weeks. Continued [facility] stay due to: multiple IV medications needed, other (pleuritic pain ) Discharge planning: home Medications: Current Inpatient Medications Medications (Trade) Dose Ordered Sig/[place] Route Start Time Stop Time Status Last Admin Dose Admin Aspirin (Ecotrin Tab) 81 mg QAM PO 05/28/17 09:00 06/27/17 08:59 05/30/17 08:54 81 MG Baclofen (Lioresal Tab) 10 mg BID PO 05/27/17 21:00 06/26/17 20:59 05/30/17 08:54 10 MG Carvedilol (Coreg Tab) 3.125 mg BID PO 05/27/17 21:00 06/26/17 20:59 05/30/17 08:56 3.125 MG Clonazepam (Klonopin Tab) 0.25 mg DAILY PRN PO 05/27/17 14:15 06/26/17 14:14 05/30/17 11:45 0.25 MG Hydrochlorothiazide (Hydrochlorothiazide Tab) 25 mg QAM PO 05/28/17 09:00 06/27/17 08:59 05/30/17 08:55 25 MG Pantoprazole Sodium (Protonix Tab) 40 mg DAILY PO 05/28/17 09:00 06/27/17 08:59 05/30/17 08:54 40 MG Rosuvastatin Calcium (Crestor Tab) 20 mg HS PO 05/27/17 21:00 06/26/17 20:59 05/29/17 21:21 20 MG Sodium Chloride 1,000 ml @ 50 mls/hr Q20H IV 05/27/17 15:45 06/26/17 15:44 05/30/17 05:59 50 MLS/HR Acetaminophen (Tylenol Tab) 650 mg Q4H PRN PO 05/27/17 14:15 06/26/17 14:14 Al Hydrox/Mg Hydrox/Simethicone (Maalox Max Susp) 15 ml Q4H PRN PO 05/27/17 14:15 06/26/17 14:14 05/27/17 19:39 15 ML Magnesium Hydroxide (Milk Of Magnesia Susp) 30 ml Q12H PRN PO 05/27/17 14:15 06/26/17 14:14 05/28/17 15:48 30 ML Nitroglycerin (Nitrostat Tab) 0.4 mg UD PRN SL 05/27/17 14:15 06/26/17 14:14 Ondansetron HCl (Zofran Odt) 4 mg Q4H PRN PO 05/27/17 19:45 06/26/17 19:44 05/28/17 07:41 4 MG Famotidine (Pepcid Tab) 20 mg BID PO 05/28/17 21:00 06/27/17 20:59 05/30/17 08:55 20 MG Lactobacillus Acidophilus (Floranex Tab) 4 tab TIDM PO 05/28/17 16:45 06/27/17 16:44 05/30/17 11:45 4 TAB Colchicine (Colchicine Tab) 0.6 mg BID PO 05/28/17 21:00 06/27/17 20:59 05/30/17 08:56 0.6 MG Ibuprofen (Advil Tab) 400 mg TID PO 05/28/17 21:00 06/27/17 20:59 05/30/17 08:55 400 MG Clonazepam (Klonopin Tab) 0.5 mg HS PO 05/28/17 21:00 06/27/17 20:59 05/29/17 21:20 0.5 MG Ferrous Sulfate (Feosol Tab) 325 mg BIDM PO 05/29/17 07:30 06/28/17 07:29 05/30/17 08:09 325 MG
[2017-05-30] MEDS ORDERED: CLC6 PO (14:12)
[2017-05-30] MEDS ORDERED: IBUP-1050 PO (14:12)
--- NOTE | 2017-05-30 14:14 | Discharge Instructions ---
Discharge Instructions Date of Service May 30, 2017. Admission Reason for Admission: Weakness Discharge Discharge Diagnosis / Problem: pericarditis Discharge Goals Goal(s): Diagnostic testing, Therapeutic intervention Activity Recommendations Activity Limitations: as noted below Lifting Limitations: gradually increase as tolerated . Instructions / Follow-Up Instructions / Follow-Up Please have your Coumadin level checked next week Current Hospital Diet Patient's current hospital diet: Regular Diet Discharge Diet Recommended Diet: Regular Diet Pending Studies Studies pending at discharge: yes List of pending studies: stool evalution Laboratory Results Hemoglobin A1c Test 05/28/17 06:32 Range/Units Estimated Average Glucose 120 mg/dl Hemoglobin A1c 5.8 H 4.5-5.6 % Medical Emergencies . Who to Call and When: Medical Emergencies: If at any time you feel your situation is an emergency, please call 911 immediately. . Non-Emergent Contact Non-Emergency issues call your: Primary Care Provider, Senior Tax Manager Call Non-Emergent contact if: temperature is above 101, your pain is unusual for you . . "Provider Documentation" section prepared by Munir Emmanuel. . VTE Core Measure Inpt VTE Proph given/why not?: Warfarin (Coumadin)
[2017-05-30 15:10] VITALS: BP 138/74; PULSE 79; TEMP 36.7; O2SAT 95
--- NOTE | 2017-05-30 18:08 | Discharge Summary ---
Discharge Summary Date of Service May 30, 2017. Discharge Summary Admission Date: May 27, 2017 at 14:18 Discharge Date: May 30, 2017 Discharge Disposition: Home Principal Diagnosis: pericarditis and pleurisy Immunizations: Have You Had Influenza Vaccine: Yes History of Tetanus Vaccine?: No History of Pneumococcal: Yes History of Hepatitis B Vaccine: No Consultations: dr catie samson Medication Reconciliation New Medications: Colchicine (Colcrys) 0.6 Mg Tab 0.6 MG PO BID, #60 TAB Ibuprofen (Advil) 200 Mg Tab 400 MG PO TID, #120 TAB Continued Medications: Aspirin (Aspirin Ec) 81 Mg Tab 81 MG PO QAM Baclofen (Lioresal) 10 Mg Tab 10 MG PO BID, TAB Carvedilol (Coreg) 3.125 Mg Tab 3.125 MG PO BID, TAB Cholecalciferol (Vitamin D3) 2,000 Unit Cap 1 CAP PO DAILY for 30 Days, #30 CAP 3 Refills Clonazepam (Klonopin) 0.5 Mg Tab 0.25 MG PO DAILY PRN for Anxiety/Agitation Hydrochlorothiazide (Hctz) 25 Mg Tab 25 MG PO QAM, TAB Lisinopril (Zestril) 20 Mg Tab 10 MG PO QAM, TAB Melatonin (Meladox) 3 Mg Tab 0.5 TAB PO HS Pantoprazole (Protonix) 40 Mg Tab 40 MG PO DAILY Rosuvastatin Calcium (Rosuvastatin Calcium) 20 Mg Tab 20 MG PO HS, #90 Warfarin Sod (Coumadin) 2.5 Mg Tab 2.5 MG PO DAILY Discharge Exam Review of Systems: Constitutional: No fever, No chills Respiratory: No cough, No sputum, No wheezing, No shortness of breath, No dyspnea on exertion Abdomen: No pain, No nausea, No vomiting, No diarrhea, No constipation Physical Exam: General Appearance: WD/WN, no apparent distress Eyes: normal inspection, PERRL, EOMI Neck: supple, no JVD Respiratory/Chest: chest non-tender, lungs clear, normal breath sounds Cardiovascular: regular rate, rhythm, no murmur Abdomen / GI: normal bowel sounds, non tender, soft Neurologic/Psychiatric: alert, oriented x 3 Hospital Course 72yo female with recent keyhole aortic valve, presents with pleuritic chest pain, pericardial and pleural effusions and small PE's pleuritic chest pain - pericardial effusion colchicine 0.6mg BID and motrin 400mg TID, close follow up with Dr Samson to also include restart of coumadin and INR right-sided pleural effusion - appears mild on cxr and mild-mod on CT, U/S shows 441 Ml since in no distress discussed with DR Samson and will not incur risk of pneumothorax for such a small collection unless it becomes clnically relevant s/p AVR for aortic stenosis - echo normal EF and some DD, with normal valve function. DVTs with PEs - restart coumadin , is at risk with prothrombin gene mutation anemia - likely multifactorial - acute blood loss from recent surgery Smith's esophagus - PPI insomnia - clonazepam 0.5mg at HS. DVT proph - coumadin. Total Time Spent: Greater than 30 minutes This includes examination of the patient, discharge planning, medication reconciliation, and communication with other providers. Discharge Instructions Please refer to the electronic Patient Visit Report (Discharge Instructions) for additional information.
[2017-06-01] MEDS ORDERED: ASPI81TA28 PO (10:01)
[2017-06-01] MEDS ORDERED: CLON0.5T3 PO (11:51)
[2017-06-01] MEDS ORDERED: ROSU20TA22 PO (13:43)
[2017-06-01] MEDS ORDERED: CHOL2000 PO (14:40)
[2017-06-02 12:30] LABS: NOROVIRUS RNA** TC 19098X NOT DETECTED; O&P GIARDIA AG NOT DETECTED (NOT DETECTED)
[2017-06-19] MEDS ORDERED: CRFUDL PO (16:09)
[2017-06-19] MEDS ORDERED: MCTP EXT (16:09)
[2017-06-19] MEDS ORDERED: LSN20 PO (16:09)
[2017-06-19] MEDS ORDERED: MTR600 PO (16:09)
[2017-06-19] MEDS ORDERED: CMD3 PO (16:09)
[2017-07-11] MEDS ORDERED: AMLO-110 PO (10:08)
[2017-07-11] MEDS ORDERED: LSN40 PO (10:08)
[2017-07-11] MEDS ORDERED: IBUP-1050 PO (10:08)
[2017-07-11] MEDS ORDERED: ULT50X PO (10:08)
== END 2017-05-30 15:45 | disposition home or self-care (01) | DRG 315 ==
LOC: C.EDB 09:02 → C.2T 14:18 → ENRESERV 14:37
PROVIDERS: ADMIT Internal Medicine; ATTEND Internal Medicine
DX: I31.9 Disease of pericardium, unspecified (principal); J90 Pleural effusion, not elsewhere classified; D68.52 Prothrombin gene mutation; I10 Essential (primary) hypertension; D64.9 Anemia, unspecified; G47.00 Insomnia, unspecified; E78.5 Hyperlipidemia, unspecified; E66.9 Obesity, unspecified; Z68.39 Body mass index [BMI] 39.0-39.9, adult; M19.90 Unspecified osteoarthritis, unspecified site; K21.9 Gastro-esophageal reflux disease without esophagitis; G47.33 Obstructive sleep apnea (adult) (pediatric); K76.0 Fatty (change of) liver, not elsewhere classified; K22.70 Barrett's esophagus without dysplasia; R35.0 Frequency of micturition; Z79.01 Long term (current) use of anticoagulants; Z86.718 Personal history of other venous thrombosis and embolism; Z86.711 Personal history of pulmonary embolism; Z88.8 Allergy status to other drugs, medicaments and biological substances; Z95.2 Presence of prosthetic heart valve; Z79.82 Long term (current) use of aspirin; Z79.899 Other long term (current) drug therapy; Z80.9 Family history of malignant neoplasm, unspecified; Z82.49 Family history of ischemic heart disease and other diseases of the circulatory system; Z83.79 Family history of other diseases of the digestive system; Z84.1 Family history of disorders of kidney and ureter; R19.7 Diarrhea, unspecified

== ENCOUNTER 2017-06-01 21:32 | Emergency (ER) | payer BC, OTHER ==
[~2017-06-01] VITALS: Ht 160 cm; Wt 100.0 kg
[~2017-06-01 21:32] MED LIST changes: +ASPI81TA28 PO; +CHOL2000 PO; +CLC6 PO; +CMD/25 PO; -CMD5 PO; +IBUP-1050 PO; -LVNIS100 SQ; +PANT40TA PO; +ROSU20TA22 PO
[2017-06-01 21:41] VITALS: TEMP 36.8; Ht 160 cm; Wt 100.0 kg
[2017-06-01] MEDS ORDERED: ONDANSETRON INJ 2 MG/ML 2 ML VIAL IV STA (22:04)
--- NOTE | 2017-06-01 22:10 | EMERGENCY ROOM VISIT NOTE ---
History Report prepared by Tristen: Sage Del Toro Under the Supervision of: Dr. Js Kebede D.O. First contact with patient: 21:54 Chief Complaint: ABDOMINAL PAIN Stated Complaint: PAIN IN STOMACH History of Present Illness The patient is a 72 year old female who presents to the Emergency Room with complaints of persistent central abdominal pain that began at noon today, 10 hours prior to arrival. The pain sometimes radiates to other areas to abdomen as well. The patient states that she has been having issues with her stomach intermittently over the past couple of weeks, but it worsened this afternoon. She is also currently experiencing diarrhea and nausea. The patient had heart surgery on April 11 of this year and shortly after developed blood clots in her legs and lung. She has a history of cholecystectomy. Source of History: patient Onset: 10 hours prior to arrival Position: abdomen Timing: worsening, other (Persistent) Associated Symptoms: + vomiting, + diarrhea Review of Systems See HPI for pertinent positives and negatives. A total of ten systems were reviewed and were otherwise negative. Past Medical & Surgical Medical Problems: (1) back surgery (2) Barretts esophagus (3) Endocervical polyp (4) Hypertension (5) Patellar tendonitis (6) Pneumonia (7) Post-menopause bleeding (8) Weakness Surgical Problems: (1) Hx of cholecystectomy Family History Diabetes mellitus FH: cancer FH: heart disease FH: lung disease Gallbladder disease Hypertension Kidney disease Kidney stones Social History Smoking Status: Never Smoker Alcohol Use: none Drug Use: none Marital Status: Housing Status: lives with family Occupation Status: retired Current/Historical Medications Scheduled Aspirin (Aspirin Ec), 81 MG PO QAM Baclofen (Baclofen), 10 MG PO BID Carvedilol (Carvedilol), 3.125 MG PO BID Cholecalciferol (Vitamin D3), 2,000 INTER.UNIT PO DAILY Colchicine (Colchicine), 0.6 MG PO BID Hydrochlorothiazide (Hydrochlorothiazide), 25 MG PO QAM Ibuprofen (Advil), 400 MG PO TID Lisinopril (Lisinopril), 10 MG PO QAM Pantoprazole (Pantoprazole Sodium), 40 MG PO QAM Rosuvastatin Calcium (Rosuvastatin Calcium), 20 MG PO HS Warfarin Sodium (Warfarin Sodium), 2.5 MG PO DAILY Scheduled PRN Clonazepam (Klonopin), 0.25 MG PO DAILY PRN for Anxiety/Agitation Melatonin (Melatonin), 1.5 MG PO HS PRN for Sleep Allergies Coded Allergies: Niacin (Verified Allergy, Intermediate, RASH, 05/11/17) Atorvastatin (Verified Adverse Reaction, Mild, MUSCLE ACHES, 05/14/17) Diltiazem (Verified Adverse Reaction, Mild, HEADACHE, 05/14/17) Physical Exam Vital Signs Date Time Temp Pulse Resp B/P (MAP) Pulse Ox O2 Delivery O2 Flow Rate FiO2 06/01/17 23:31 72 18 147/87 94 Room Air 06/01/17 22:35 74 06/01/17 21:41 36.8 75 18 148/84 97 Room Air Physical Exam GENERAL: Awake, alert, well-appearing, in no distress HENT: Normocephalic, atraumatic. Oropharynx unremarkable. EYES: Normal conjunctiva. Sclera non-icteric. NECK: Supple. No nuchal rigidity. FROM. No JVD. RESPIRATORY: Clear to auscultation. CARDIAC: Regular rate, normal rhythm. Extremities warm and well perfused. Pulses equal. ABDOMEN: Soft, non-distended, with mild tenderness to palpation in the mid epigastrium. No rebound or guarding. No masses. RECTAL: Deferred. MUSCULOSKELETAL: Chest examination reveals no tenderness. The back is symmetrical on inspection without obvious abnormality. There is no CVA tenderness to palpation. No joint edema. LOWER EXTREMITIES: Calves are equal size bilaterally and non-tender. Mild edema to bilateral lower extremities. No discoloration. NEURO: Normal sensorium. No sensory or motor deficits noted. SKIN: No rash or jaundice noted. Medical Decision & Procedures Laboratory Results 06/01/17 22:38 Red Blood Count 3.42, Mean Corpuscular Volume 86.5, Mean Corpuscular Hemoglobin 28.4, Mean Corpuscular Hemoglobin Concent 32.8, Mean Platelet Volume 9.0, Neutrophils (%) (Auto) 62.8, Lymphocytes (%) (Auto) 18.8, Monocytes (%) (Auto) 13.4, Eosinophils (%) (Auto) 3.4, Basophils (%) (Auto) 1.5, Neutrophils # (Auto ) 5.41, Lymphocytes # (Auto) 1.62, Monocytes # (Auto) 1.15, Eosinophils # (Auto ) 0.29, Basophils # (Auto) 0.13 06/01/17 22:38 Test 06/01/17 22:38 White Blood Count 8.61 K/uL (4.8-10.8) Red Blood Count 3.42 M/uL (4.2-5.4) Hemoglobin 9.7 g/dL (12.0-16.0) Hematocrit 29.6 % (37-47) Mean Corpuscular Volume 86.5 fL (80-100) Mean Corpuscular Hemoglobin 28.4 pg (25-34) Mean Corpuscular Hemoglobin Concent 32.8 g/dl (32-36) Platelet Count 443 K/uL (130-400) Mean Platelet Volume 9.0 fL (7.4-10.4) Neutrophils (%) (Auto) 62.8 % Lymphocytes (%) (Auto) 18.8 % Monocytes (%) (Auto) 13.4 % Eosinophils (%) (Auto) 3.4 % Basophils (%) (Auto) 1.5 % Neutrophils # (Auto) 5.41 K/uL (1.4-6.5) Lymphocytes # (Auto) 1.62 K/uL (1.2-3.4) Monocytes # (Auto) 1.15 K/uL (0.11-0.59) Eosinophils # (Auto) 0.29 K/uL (0-0.5) Basophils # (Auto) 0.13 K/uL (0-0.2) RDW Standard Deviation 48.1 fL (36.4-46.3) RDW Coefficient of Variation 15.2 % (11.5-14.5) Immature Granulocyte % (Auto) 0.1 % Immature Granulocyte # (Auto) 0.01 K/uL (0.00-0.02) Prothrombin Time 19.9 SECONDS (9.0-12.0) Prothromb Time International Ratio 1.8 (0.9-1.1) Anion Gap 9.0 mmol/L (3-11) Est Creatinine Clear Calc Drug Dose 74.6 ml/min Estimated GFR () 88.6 Estimated GFR (Non- 76.5 BUN/Creatinine Ratio 13.0 (10-20) Calcium Level 8.6 mg/dl (8.5-10.1) Total Bilirubin 0.2 mg/dl (0.2-1) Direct Bilirubin < 0.1 mg/dl (0-0.2) Aspartate Amino Transf (AST/SGOT) 12 U/L (15-37) Alanine Aminotransferase (ALT/SGPT) 14 U/L (12-78) Alkaline Phosphatase 108 U/L (45-117) Total Protein 7.1 gm/dl (6.4-8.2) Albumin 2.7 gm/dl (3.4-5.0) Lipase 130 U/L (73-393) Laboratory results reviewed by me Medications Administered Medications (Trade) Dose Ordered Sig/Aurora Route Start Time Stop Time Status Last Admin Dose Admin Ondansetron HCl (Zofran Inj) 4 mg NOW STAT IV 06/01/17 22:04 06/01/17 22:06 DC 06/01/17 23:03 4 MG Pantoprazole Sodium 40 mg/ Syringe 10 ml @ 5 mls/min NOW ONCE IV 06/01/17 22:15 06/01/17 22:16 DC 06/01/17 23:03 5 MLS/MIN Potassium Chloride (Klor-Con M10) 40 meq NOW STAT PO 06/01/17 23:16 06/01/17 23:18 DC 06/01/17 23:28 40 MEQ ECG Indication: abdominal pain Rate (beats per minute): 71 Rhythm: normal sinus Findings: RBBB, no acute ischemic change, no ectopy ED Course 2200: The patient was evaluated in room B10. A complete history and physical exam was performed. 2204: Ordered Zofran 4 mg IV. 2215: Ordered Pantoprazole 10 mL @ 5 mL/min IV. 2316: Ordered Potassium Chloride 40 meq PO. 2334: I reevaluated the patient. Discussed results and discharge instructions: she verbalized understanding and agreement. The patient is ready for discharge. Patient demonstrates repeat examination 0. Resting in no distress Medical Decision The patient's history was concerning for abdominal pain. Differential diagnosis: Etiologies such as appendicitis, diverticulitis, PUD, biliary pathology, UTI, pancreatitis, obstruction, mesenteric ischemia, aortic pathology, infections, inflammatory bowel disease, renal colic, as well as others were entertained. Impression Primary Impression: Gastritis Additional Impressions: Abdominal pain Hypokalemia Scribe Attestation The scribe's documentation has been prepared under my direction and personally reviewed by me in its entirety. I confirm that the note above accurately reflects all work, treatment, procedures, and medical decision making performed by me. Departure Information Dispostion Home / Self-Care Prescriptions Pantoprazole (Protonix) 40 Mg Tab 40 MG PO DAILY, #30 TAB Prov: Js Kebede, DO 06/01/17 Ondasetron Odt (ZOFRAN ODT) 4 Mg Tab 4 MG SL Q6H for Nausea, #6 TAB Prov: Js Kebede, DO 06/01/17 Referrals Renzo Barker M.D. (PCP) Patient Instructions Abdominal Pain - [facility], [facility] Problem Qualifiers
[2017-06-01] MEDS ORDERED: WARF-280 PO (22:13)
[2017-06-01] MEDS ORDERED: LSN20 PO (22:13)
[2017-06-01] MEDS ORDERED: COLC1TAB25 PO (22:13)
[2017-06-01] MEDS ORDERED: LRS10 PO (22:13)
[2017-06-01] MEDS ORDERED: HYDR25TA5 PO (22:13)
[2017-06-01] MEDS ORDERED: PRT/40 PO (22:13)
[2017-06-01] MEDS ORDERED: CRG3125 PO (22:13)
[2017-06-01] MEDS ORDERED: MELA3TAB PO (22:14)
[2017-06-01] MEDS ORDERED: PANTOprazole INJ 40 MG in SYRINGE 0 ML IV ONE (22:15)
[2017-06-01 22:48] LABS: BASO % 1.5 %; BASO ABS # 0.13 K/uL (0-0.2); COMPLETE YES; EOS % 3.4 %; HEMATOCRIT 29.6 % (37-47); IG% 0.1 %; LYMPH % 18.8 %; LYMPH ABS # 1.62 K/uL (1.2-3.4); MEAN CELL VOLUME 86.5 fL (80-100); MEAN CORPUSCULAR HEMOGLOBIN 28.4 pg (25-34); MEAN CORPUSCULAR HGB CONC 32.8 g/dl (32-36); MONO % 13.4 %; NEUT % 62.8 %; PLATELET COUNT 443 K/uL (130-400); RED BLOOD COUNT 3.42 M/uL (4.2-5.4); WHITE BLOOD COUNT 8.61 K/uL (4.8-10.8)
[2017-06-01 22:56] LABS: INR 1.8 (0.9-1.1); PROTHROMBIN TIME (PATIENT) 19.9 SECONDS (9.0-12.0)
[2017-06-01 23:08] LABS: ALT/SGPT 14 U/L (12-78); AST/SGOT 12 U/L (15-37); BLOOD UREA NITROGEN 10 mg/dl (7-18); CALCIUM 8.6 mg/dl (8.5-10.1); CARBON DIOXIDE 28 mmol/L (21-32); CHLORIDE 107 mmol/L (98-107); CREATININE 0.78 mg/dl (0.60-1.20); GLUCOSE 99 mg/dl (70-99); POTASSIUM 2.7 mmol/L (3.5-5.1); SODIUM 144 mmol/L (136-145)
[2017-06-01 23:10] LABS: ALKALINE PHOSPHATASE 108 U/L (45-117)
[2017-06-01] MEDS ORDERED: POTASSIUM CHLORIDE 10 MEQ TABCR PO STA (23:16)
[2017-06-01 23:31] VITALS: BP 147/87; PULSE 72; O2SAT 94
[2017-06-01] MEDS ORDERED: PANT40TA PO (23:42)
[2017-06-01] MEDS ORDERED: ONDA4TAB10 SL (23:42)
[2017-06-02] MEDS ORDERED: RANI150T3 PO (17:28)
[2017-06-02] MEDS ORDERED: TRAZ50TA35 PO (17:50)
[2017-06-19] MEDS ORDERED: LSN20 PO (16:09)
[2017-06-19] MEDS ORDERED: MCTP EXT (16:09)
[2017-06-19] MEDS ORDERED: MTR600 PO (16:09)
[2017-06-19] MEDS ORDERED: CRFUDL PO (16:09)
[2017-06-19] MEDS ORDERED: CMD3 PO (16:09)
[2017-07-11] MEDS ORDERED: LSN40 PO (10:08)
[2017-07-11] MEDS ORDERED: AMLO-110 PO (10:08)
[2017-07-11] MEDS ORDERED: IBUP-1050 PO (10:08)
[2017-07-11] MEDS ORDERED: ULT50X PO (10:08)
== END 2017-06-01 23:52 | disposition home or self-care (01) ==
LOC: C.EDB 21:33
DX: K29.70 Gastritis, unspecified, without bleeding (principal); R10.9 Unspecified abdominal pain; E87.6 Hypokalemia; R19.7 Diarrhea, unspecified; R11.0 Nausea; I45.10 Unspecified right bundle-branch block; I10 Essential (primary) hypertension; K22.70 Barrett's esophagus without dysplasia; Z79.01 Long term (current) use of anticoagulants; Z79.82 Long term (current) use of aspirin; Z79.899 Other long term (current) drug therapy; Z82.49 Family history of ischemic heart disease and other diseases of the circulatory system; Z83.3 Family history of diabetes mellitus; Z83.6 Family history of other diseases of the respiratory system; Z83.79 Family history of other diseases of the digestive system; Z84.1 Family history of disorders of kidney and ureter

== ENCOUNTER 2017-06-02 09:23 | Emergency (ER) | payer BC ==
[~2017-06-02] VITALS: Ht 160 cm; Wt 100.0 kg
[~2017-06-02 09:23] MED LIST changes: +COLC1TAB25 PO; +CRG3125 PO; +HYDR25TA5 PO; +LRS10 PO; +LSN20 PO; +MELA3TAB PO; +ONDA4TAB10 SL; +PRT/40 PO; +WARF-280 PO
[2017-06-02 09:28] VITALS: TEMP 36.6; Ht 160 cm; Wt 100.0 kg
[2017-06-02 09:39] VITALS: O2SAT 96
[2017-06-02] MEDS ORDERED: CLONAZEPAM 0.5 MG TAB PO STA ×2 (09:58→16:57)
[2017-06-02 10:05] LABS: BASO % 0.6 %; BASO ABS # 0.05 K/uL (0-0.2); COMPLETE YES; EOS % 2.1 %; HEMATOCRIT 30.5 % (37-47); IG% 0.2 %; LYMPH % 17.2 %; LYMPH ABS # 1.45 K/uL (1.2-3.4); MEAN CELL VOLUME 85.2 fL (80-100); MEAN CORPUSCULAR HEMOGLOBIN 26.8 pg (25-34); MEAN CORPUSCULAR HGB CONC 31.5 g/dl (32-36); MEAN PLATELET VOLUME 9.1 fL (7.4-10.4); MONO % 11.8 %; NEUT % 68.1 %; PLATELET COUNT 478 K/uL (130-400); RED BLOOD COUNT 3.58 M/uL (4.2-5.4); WHITE BLOOD COUNT 8.41 K/uL (4.8-10.8)
[2017-06-02 10:13] LABS: INR 1.9 (0.9-1.1); PROTHROMBIN TIME (PATIENT) 20.8 SECONDS (9.0-12.0)
[2017-06-02 10:21] LABS: BLOOD UREA NITROGEN 10 mg/dl (7-18); CALCIUM 8.8 mg/dl (8.5-10.1); CARBON DIOXIDE 25 mmol/L (21-32); CHLORIDE 107 mmol/L (98-107); CREATININE 0.76 mg/dl (0.60-1.20); GLUCOSE 115 mg/dl (70-99); MAGNESIUM 2.2 mg/dl (1.8-2.4); POTASSIUM 3.1 mmol/L (3.5-5.1); SODIUM 142 mmol/L (136-145)
--- NOTE | 2017-06-02 10:28 | DIAGNOSTIC IMAGING REPORT ---
CHEST ONE VIEW PORTABLE CLINICAL HISTORY: 72 years-old Female presenting with sob. TECHNIQUE: Portable upright AP view of the chest was obtained. COMPARISON: 05/27/2017. FINDINGS: Atherosclerosis of the aortic arch. Mildly prominent cardiac silhouette. Persistent elevation of the right hemidiaphragm with right basilar opacity. No large effusion or pneumothorax. Osseous structures and upper abdomen normal. IMPRESSION: 1. Right basilar opacity, likely atelectasis secondary to persistent right hemidiaphragm elevation. Trace right pleural fluid may also be present. Electronically signed by: Frederick Fajardo M.D. 06/02/2017 10:26 AM Dictated Date/Time: 06/02/2017 10:25 AM
[2017-06-02] MEDS ORDERED: POTASSIUM CHLORIDE 10 MEQ TABCR PO STA (10:36)
[2017-06-02] MEDS ORDERED: RANI150T3 PO (17:28)
[2017-06-02] MEDS ORDERED: TRAZ50TA35 PO (17:50)
[2017-06-02] MEDS ORDERED: RANITIDINE HCL 150 MG TAB PO STA (17:51)
--- NOTE | 2017-06-02 17:55 | EMERGENCY ROOM VISIT NOTE ---
History Report prepared by Tristen: India Gallardo Under the Supervision of: Dr. Michael Ruiz M.D. First contact with patient: 09:35 Chief Complaint: SHORTNESS OF BREATH Stated Complaint: SOB Nursing Triage Summary: pt just d/c on friday afternoon for same. pt states" i feel like everything is tight, it started getting worse last night" pt hyperventilating . very anxious History of Present Illness The patient is a 72 year old female who presents to the Emergency Room with complaints of worsening SOB last night. She was in the hospital recently for the same complaints and was discharged 3 days ago. At that time she was still feeling unwell. Once she returned home she started feeling SOB again. Her SOB worsens when she lies flat. She still has SOB when she is sitting up. She is having difficulty sleeping. She reports a constant tightness in her chest and up into her neck, nausea, and dry cough. She has noticed her feet are swollen. She denies fever, chills, or vomiting. She has had some diarrhea lately. Her stools are still loose, but improving. She was here last night for nausea and abdominal pain. She received medications which improved her symptoms and she was able to return home. During the visit, she was not experiencing SOB. When she returned home, she started having SOB again and was unable to sleep. She has not been eating well recently. She did not go to cardiac rehab after her aortic valve replacement surgery in April. She was supposed to go register today , but called and said that she was unable to because of her symptoms. She is on Klonopin and took some last night. She is on Coumadin. Source of History: patient Onset: last night Position: other (global) Quality: other (SOB) Timing: worsening Modifying Factors (Worsening): other (lying flat) Associated Symptoms: + cough, + neck pain, + chest pain, + nausea, + diarrhea, No fevers, No chills, No vomiting Note: Pt reports difficulty sleeping, feet swelling. Review of Systems See HPI for pertinent positives and negatives. A total of ten systems were reviewed and were otherwise negative. Past Medical & Surgical Medical Problems: (1) back surgery (2) Barretts esophagus (3) Endocervical polyp (4) Hypertension (5) Patellar tendonitis (6) Pneumonia (7) Post-menopause bleeding (8) Weakness Surgical Problems: (1) Hx of cholecystectomy Family History Diabetes mellitus FH: cancer FH: heart disease FH: lung disease Gallbladder disease Hypertension Kidney disease Kidney stones Social History Smoking Status: Never Smoker Alcohol Use: none Drug Use: none Marital Status: Housing Status: lives with family Occupation Status: retired Current/Historical Medications Scheduled Aspirin (Aspirin Ec), 81 MG PO QAM Baclofen (Baclofen), 10 MG PO BID Carvedilol (Carvedilol), 3.125 MG PO BID Cholecalciferol (Vitamin D3), 2,000 INTER.UNIT PO DAILY Colchicine (Colchicine), 0.6 MG PO BID Hydrochlorothiazide (Hydrochlorothiazide), 25 MG PO QAM Ibuprofen (Advil), 400 MG PO TID Lisinopril (Lisinopril), 10 MG PO QAM Ondasetron Odt (Zofran Odt), 4 MG SL Q6H Pantoprazole (Pantoprazole Sodium), 40 MG PO QAM Ranitidine Hcl (Zantac), 150 MG PO DAILY Rosuvastatin Calcium (Rosuvastatin Calcium), 20 MG PO HS Warfarin Sodium (Warfarin Sodium), 2.5 MG PO DAILY Scheduled PRN Clonazepam (Klonopin), 0.25 MG PO DAILY PRN for Anxiety/Agitation Melatonin (Melatonin), 1.5 MG PO HS PRN for Sleep Trazodone Hcl (Trazodone), 50 MG PO DIRECTED PRN for Insomnia Allergies Coded Allergies: Niacin (Verified Allergy, Intermediate, RASH, 06/02/17) Atorvastatin (Verified Adverse Reaction, Mild, MUSCLE ACHES, 06/02/17) Diltiazem (Verified Adverse Reaction, Mild, HEADACHE, 06/02/17) Physical Exam Vital Signs Date Time Temp Pulse Resp B/P (MAP) Pulse Ox O2 Delivery O2 Flow Rate FiO2 06/02/17 18:18 82 20 142/76 93 06/02/17 17:06 83 22 152/89 94 Room Air 06/02/17 16:59 83 06/02/17 15:18 82 16 142/90 94 Room Air 06/02/17 13:45 82 20 152/88 95 Room Air 06/02/17 13:00 75 06/02/17 12:17 77 19 123/72 94 Room Air 06/02/17 10:50 78 19 123/68 94 06/02/17 09:43 75 06/02/17 09:39 96 Room Air 06/02/17 09:37 96 Room Air 06/02/17 09:28 36.6 77 22 138/75 96 Room Air Physical Exam GENERAL: Awake, alert, anxious-appearing, but in no acute distress HENT: Normocephalic, atraumatic. Dry mucous membranes. EYES: Normal conjunctiva. Sclera non-icteric. NECK: Supple. No nuchal rigidity. FROM. No JVD. RESPIRATORY: Diminished at bases bilaterally, otherwise clear CARDIAC: Regular rate, normal rhythm. Extremities warm and well perfused. Pulses equal. ABDOMEN: Soft, non-distended. No tenderness to palpation. No rebound or guarding. No masses. RECTAL: Deferred. MUSCULOSKELETAL: Chest examination reveals no tenderness. The back is symmetrical on inspection without obvious abnormality. There is no CVA tenderness to palpation. No joint edema. LOWER EXTREMITIES: Calves are equal size bilaterally and non-tender. Trace edema to the lower extremities bilaterally. No discoloration. NEURO: Normal sensorium. No sensory or motor deficits noted. SKIN: No rash or jaundice noted. Medical Decision & Procedures ER Provider Diagnostic Interpretation: X-ray: Per my interpretation, radiologist review. CHEST ONE VIEW PORTABLE CLINICAL HISTORY: 72 years-old Female presenting with sob. TECHNIQUE: Portable upright AP view of the chest was obtained. COMPARISON: 05/27/2017. FINDINGS: Atherosclerosis of the aortic arch. Mildly prominent cardiac silhouette. Persistent elevation of the right hemidiaphragm with right basilar opacity. No large effusion or pneumothorax. Osseous structures and upper abdomen normal. IMPRESSION: 1. Right basilar opacity, likely atelectasis secondary to persistent right hemidiaphragm elevation. Trace right pleural fluid may also be present. Electronically signed by: Frederick Fajardo M.D. 06/02/2017 10:26 AM Dictated Date/Time: 06/02/2017 10:25 AM Laboratory Results 06/02/17 09:45 Red Blood Count 3.58, Mean Corpuscular Volume 85.2, Mean Corpuscular Hemoglobin 26.8, Mean Corpuscular Hemoglobin Concent 31.5, Mean Platelet Volume 9.1, Neutrophils (%) (Auto) 68.1, Lymphocytes (%) (Auto) 17.2, Monocytes (%) (Auto) 11.8, Eosinophils (%) (Auto) 2.1, Basophils (%) (Auto) 0.6, Neutrophils # (Auto ) 5.72, Lymphocytes # (Auto) 1.45, Monocytes # (Auto) 0.99, Eosinophils # (Auto ) 0.18, Basophils # (Auto) 0.05 06/02/17 09:45 Test 06/02/17 09:45 White Blood Count 8.41 K/uL (4.8-10.8) Red Blood Count 3.58 M/uL (4.2-5.4) Hemoglobin 9.6 g/dL (12.0-16.0) Hematocrit 30.5 % (37-47) Mean Corpuscular Volume 85.2 fL (80-100) Mean Corpuscular Hemoglobin 26.8 pg (25-34) Mean Corpuscular Hemoglobin Concent 31.5 g/dl (32-36) Platelet Count 478 K/uL (130-400) Mean Platelet Volume 9.1 fL (7.4-10.4) Neutrophils (%) (Auto) 68.1 % Lymphocytes (%) (Auto) 17.2 % Monocytes (%) (Auto) 11.8 % Eosinophils (%) (Auto) 2.1 % Basophils (%) (Auto) 0.6 % Neutrophils # (Auto) 5.72 K/uL (1.4-6.5) Lymphocytes # (Auto) 1.45 K/uL (1.2-3.4) Monocytes # (Auto) 0.99 K/uL (0.11-0.59) Eosinophils # (Auto) 0.18 K/uL (0-0.5) Basophils # (Auto) 0.05 K/uL (0-0.2) RDW Standard Deviation 47.3 fL (36.4-46.3) RDW Coefficient of Variation 15.1 % (11.5-14.5) Immature Granulocyte % (Auto) 0.2 % Immature Granulocyte # (Auto) 0.02 K/uL (0.00-0.02) Prothrombin Time 20.8 SECONDS (9.0-12.0) Prothromb Time International Ratio 1.9 (0.9-1.1) Anion Gap 10.0 mmol/L (3-11) Est Creatinine Clear Calc Drug Dose 76.6 ml/min Estimated GFR () 91.5 Estimated GFR (Non- 78.9 BUN/Creatinine Ratio 13.0 (10-20) Calcium Level 8.8 mg/dl (8.5-10.1) Magnesium Level 2.2 mg/dl (1.8-2.4) Troponin I < 0.015 ng/ml (0-0.045) Pro-B-Type Natriuretic Peptide 1131 pg/ml (0-900) Laboratory results reviewed by me Medications Administered Medications (Trade) Dose Ordered Sig/Aurora Route Start Time Stop Time Status Last Admin Dose Admin Clonazepam (Klonopin Tab) 0.5 mg NOW STAT PO 06/02/17 09:58 06/02/17 09:59 DC 06/02/17 10:10 0.5 MG Potassium Chloride (Klor-Con M10) 40 meq NOW STAT PO 06/02/17 10:36 06/02/17 10:38 DC 06/02/17 10:48 40 MEQ Clonazepam (Klonopin Tab) 0.5 mg NOW STAT PO 06/02/17 16:57 06/02/17 16:58 DC 06/02/17 17:07 0.5 MG Ranitidine HCl (zANTac TAB) 150 mg NOW STAT PO 06/02/17 17:51 06/02/17 17:52 DC 06/02/17 18:13 150 MG ECG Indication: chest pain, SOB/dyspnea Rate (beats per minute): 75 Rhythm: normal sinus Findings: no acute ischemic change, other (normal axis) Comparison ECG Date: 01-Jun-2017 Change: no significant change ED Course 0947: The patient was evaluated in room A3. A complete history and physical exam was performed. 0958: Clonazepam 0.5 mg PO. 1036: Potassium Chloride 40 meq PO. 1051: I reevaluated the patient. She is resting comfortably. 1630: The patient has been evaluated by the psych porter sample case. 1657: Clonazepam 0.5 mg PO. 1733: I reevaluated the patient. I discussed results and discharge instructions : she verbalized understanding and agreement. The patient is ready for discharge. 1751: Ranitidine HCl 150 mg PO. Medical Decision I reviewed the patient's past medical history, medications, and the nursing notes as described above. Differential diagnosis: deconditioning, ACS, CHF, pleural effusion, pneumonia. Patient is a 72-year-old woman with a completed past medical history of recurrent pulmonary embolism on Coumadin and a recent aortic valve replacement with a porcine valve in April of this year at [facility] presenting to the emergency Department with worsening of her chronic sob and chest pain since her AVR in the setting of discharge on 05/30 after admitted for similar sx and then came to ED yesterday with similar sx and dx with gastritis. During patient' s recent hospitalization it was determined that drainage of the patients effusions was not indicated at this time. Patient's EKG was unremarkable. Trop negative and BNP unremarkable. CXR unchanged. WBC wnl. Findings d/w patient and likely contribution of patient's chronic anxiety contributing to her sx in the setting of needing to follow through with her current plan to undergo cardiac rehab. Considering patient's frequent return of sx d/w CM and arrange for PT/OT eval to see if patient would qualify for inpatient acute rehab. She was also evaluated by [facility]. However, patient did not meet criteria for this since despite her sx, she is still independent and function. However, CM assistign to make arrangement for outpatient cardiac rehab (since patieint missed her intake today) as well as for possible home services assessment. Moreover, [facility] to also f/u with patient to ensure she has all the resources she needs. Patient was also assess by psych CM who offered option of inpatient psych placement, which patient was agreeable to if local. Unfortuantely, no beds available at [facility] so patient preferred d/c. I reviewed all the resources that were be available and patient was feeling reassured but requesting medication to help with her insomnia, which frequent leads to her worsening anxiety. Plan for trial of Trazodone. 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 Patient agreeable and was d/c'd per instructions. Medication Reconcilliation Current Medication List: was personally reviewed by me Blood Pressure Screening Patient's blood pressure: Elevated blood pressure Blood pressure disposition: Referred to PCP Impression Primary Impression: Shortness of breath Additional Impression: Anxiety Scribe Attestation The scribe's documentation has been prepared under my direction and personally reviewed by me in its entirety. I confirm that the note above accurately reflects all work, treatment, procedures, and medical decision making performed by me. Departure Information Dispostion Home / Self-Care Prescriptions Trazodone Hcl (Trazodone) 50 Mg Tab 50 MG PO DIRECTED Y for Insomnia, #14 TAB Take 1 tablet by mouth before bed as needed for insomnia. If no improvement may take 2 tablets. Prov: Michael Ruiz M.D. 06/02/17 Referrals Renzo Barker M.D. (PCP) Patient Instructions Anxiety Body Response, Anxiety Disorder, Chest Pain - [facility], ED Dyspnea Shortness of Breath, [facility] Additional Instructions Please follow up with your primary care physician in the next 1-3 days for reevaluation coordination of care for your cardiac rehabilitation pain, cardiology follow-up, anxiety and psychiatry follow-up.. Continue with your follow up with cardiology as scheduled on . Your intake for cardiac rehabilitation was rescheduled for the beginning of June. You will also receive follow-up from [facility] to ensure that you have all resources that you need. Your exam, EKG, chest x-ray, and lab results did not show signs of an emergent condition at this time. Symptoms are likely related to your history and anxiety. Trazodone as directed to help with insomnia. Return to the emergency department for worsening symptoms as described in the accompanying instructions. Problem Qualifiers
[2017-06-02 18:18] VITALS: BP 142/76; PULSE 82; O2SAT 93
[2017-06-19] MEDS ORDERED: LSN20 PO (16:09)
[2017-06-19] MEDS ORDERED: MCTP EXT (16:09)
[2017-06-19] MEDS ORDERED: CMD3 PO (16:09)
[2017-06-19] MEDS ORDERED: MTR600 PO (16:09)
[2017-06-19] MEDS ORDERED: CRFUDL PO (16:09)
[2017-07-11] MEDS ORDERED: LSN40 PO (10:08)
[2017-07-11] MEDS ORDERED: IBUP-1050 PO (10:08)
[2017-07-11] MEDS ORDERED: AMLO-110 PO (10:08)
[2017-07-11] MEDS ORDERED: ULT50X PO (10:08)
== END 2017-06-02 18:19 | disposition home or self-care (01) ==
LOC: C.EDB 09:27 → C.EDA 18:19
DX: R06.02 Shortness of breath (principal); F41.9 Anxiety disorder, unspecified; K22.70 Barrett's esophagus without dysplasia; I10 Essential (primary) hypertension; M76.50 Patellar tendinitis, unspecified knee; Z83.3 Family history of diabetes mellitus; Z82.49 Family history of ischemic heart disease and other diseases of the circulatory system; Z79.82 Long term (current) use of aspirin; Z79.01 Long term (current) use of anticoagulants

== ENCOUNTER → 2017-06-03 | Outpatient (CLI) | payer BC ==
[~2017-06-03] MED LIST changes: +AMLO-110 PO; +CMD3 PO; +CRFUDL PO; +FLUC100T4 PO; +KLN5X PO; +LISI20TA3 PO; +LSN40 PO; +MCTP EXT; +MIRT15TA PO; +MTR600 PO; +RANI150T3 PO; +TRAZ50TA35 PO; +ULT50X PO; +WARF2TAB8 PO; +WARF6TAB5 PO
[2017-06-03 18:08] LABS: BLOOD UREA NITROGEN 9 mg/dl (7-18); BUN/CREATININE RATIO 10.3 (10-20); C-REACTIVE PROTEIN 6.32 mg/dl (0-0.29); CALCIUM 9.2 mg/dl (8.5-10.1); CARBON DIOXIDE 30 mmol/L (21-32); CHLORIDE 106 mmol/L (98-107); CREATININE 0.83 mg/dl (0.60-1.20); GLUCOSE 102 mg/dl (70-99); POTASSIUM 3.3 mmol/L (3.5-5.1); SODIUM 140 mmol/L (136-145)
== END | disposition home or self-care (01) ==
LOC: C.LABBFT 12:05
PROVIDERS: ATTEND Physician Assistant Medical
DX: R09.1 Pleurisy (principal); E87.6 Hypokalemia; I26.99 Other pulmonary embolism without acute cor pulmonale

== ENCOUNTER 2017-06-16 08:41 | Inpatient (IN) | payer BC, OTHER ==
[~2017-06-16] VITALS: Ht 160 cm; Wt 94.7 kg
[2017-06-16] VITALS (8 sets, daily range): BP systolic 73–120; BP diastolic 53–76; PULSE 79–106; TEMP 36.4–36.8; O2SAT 84–93; Ht 160 cm; Wt 94.7 kg
[~2017-06-16 08:41] MED LIST changes: -AMLO-110 PO; -BACL10TA PO; -CARV3.122 PO; -CLC6 PO; -CMD/25 PO; -CMD3 PO; -CRFUDL PO; -FLUC100T4 PO; -HYDR25TA4 PO; -KLN5X PO; -LISI-792 PO; -LISI20TA3 PO; -LSN40 PO; -MCTP EXT; -MIRT15TA PO; -MTR600 PO; -PANT40TA PO; -ULT50X PO; -WARF2TAB8 PO; -WARF6TAB5 PO; -[UNRECOGNIZED DRUG - CODE] PO
--- NOTE | 2017-06-16 09:28 | EMERGENCY ROOM VISIT NOTE ---
History Report prepared by Tristen: Sage Del Toro Under the Supervision of: Dr. Michell Orta M.D. First contact with patient: 09:12 Chief Complaint: CHEST PAIN Stated Complaint: CHEST PAINS Nursing Triage Summary: pt c/o chest pain started over the weekend going into the right shoulder, sob, chest pain continues today woke pt at 5am hx aortic valve replacement done april 11 in [place], blood clots History of Present Illness The patient is a 72 year old female who presents to the Emergency Room with complaints of gradually worsening chest pain that began a couple of days ago. The patient is also experiencing pain radiating into her right shoulder. She notes being short of breath as well, but denies any vomiting. She does have a history of aortic valve replacement. This surgery was done in April of this year. The patient also notes a history of deep vein thrombosis and pulmonary embolism. She is currently taking coumadin. She has had a catheterization in the past. Source of History: patient Onset: A couple of days ago Position: chest Timing: worsening (Gradually ) Associated Symptoms: + SOB Review of Systems See HPI for pertinent positives & negatives. A total of 10 systems reviewed and were otherwise negative. Past Medical & Surgical Medical Problems: (1) back surgery (2) Barretts esophagus (3) Chest pain (4) Endocervical polyp (5) Hypertension (6) Patellar tendonitis (7) Pericardial effusion (8) Pneumonia (9) Post-menopause bleeding (10) Weakness Surgical Problems: (1) Hx of cholecystectomy Family History Diabetes mellitus FH: cancer FH: heart disease FH: lung disease Gallbladder disease Hypertension Kidney disease Kidney stones Social History Smoking Status: Unknown if Ever Smoked Alcohol Use: none Drug Use: none Marital Status: Housing Status: lives with family Occupation Status: retired Current/Historical Medications Scheduled Aspirin (Aspirin Ec), 81 MG PO QAM Baclofen (Baclofen), 10 MG PO BID Carvedilol (Carvedilol), 3.125 MG PO BID Cholecalciferol (Vitamin D3), 2,000 INTER.UNIT PO DAILY Clonazepam (Clonazepam), 0.5 MG PO HS Colchicine (Colchicine), 0.6 MG PO BID Hydrochlorothiazide (Hydrochlorothiazide), 25 MG PO QAM Lisinopril (Lisinopril), 20 MG PO QAM Mirtazapine (Remeron), 15 MG PO QPM Pantoprazole (Pantoprazole Sodium), 40 MG PO BID Ranitidine Hcl (Zantac), 150 MG PO BID Rosuvastatin Calcium (Rosuvastatin Calcium), 20 MG PO DAILY Warfarin Sodium (Warfarin Sodium), 2.5 MG PO DAILY Scheduled PRN Clonazepam (Klonopin), 0.25 MG PO DAILY PRN for Anxiety/Agitation Allergies Coded Allergies: Niacin (Verified Allergy, Intermediate, RASH, 06/02/17) Atorvastatin (Verified Adverse Reaction, Mild, MUSCLE ACHES, 06/02/17) Diltiazem (Verified Adverse Reaction, Mild, HEADACHE, 06/02/17) Physical Exam Vital Signs Date Time Temp Pulse Resp B/P (MAP) Pulse Ox O2 Delivery O2 Flow Rate FiO2 06/16/17 13:11 92 Nasal Cannula 2.0 06/16/17 13:01 37.0 95 24 123/77 92 Nasal Cannula 2.0 06/16/17 12:00 95 24 123/77 92 06/16/17 10:06 93 23 98 06/16/17 10:01 92 28 98 06/16/17 09:56 91 29 97 06/16/17 09:51 91 28 98 06/16/17 09:46 92 24 97 06/16/17 09:41 92 27 99 06/16/17 09:36 93 19 98 06/16/17 09:31 92 27 98 06/16/17 09:26 92 27 97 06/16/17 09:21 86 26 97 06/16/17 09:16 93 28 97 06/16/17 09:14 100 Nasal Cannula 2.0 06/16/17 09:13 97 Room Air 06/16/17 09:11 94 26 99 06/16/17 09:06 95 33 98 06/16/17 09:01 94 06/16/17 09:01 95 27 06/16/17 08:56 98 Room Air 06/16/17 08:51 137/85 06/16/17 08:51 37.0 97 37 137/85 95 Room Air Physical Exam Vital signs reviewed. General: Well-appearing female, in no significant distress. HEENT: No scleral icterus, PERRLA, neck supple. Atraumatic. Cardiovascular: Regular rate and rhythm, no extra sounds. Pulmonary: Crackles at bases to auscultation bilaterally, normal work of breathing. Abdomen: Soft, nontender, nondistended, positive bowel sounds. Musculoskeletal: Atraumatic, minimal peripheral edema. Neurologic: Patient awake alert and oriented x 3 Skin: Warm, dry, no rash Medical Decision & Procedures ER Provider Diagnostic Interpretation: Radiology results as stated below per my review and radiologist interpretation: CHEST ONE VIEW PORTABLE CLINICAL HISTORY: 72 years-old Female presenting with Chest pain, h/o PE, AVR. TECHNIQUE: Portable upright AP view of the chest was obtained. COMPARISON: 06/02/2017. FINDINGS: Cardiomediastinal silhouette normal. Mildly low lung volumes with hypoventilatory changes. Persistent elevation of the right hemidiaphragm. Interval development of left greater than right basilar opacities. Nodular focus at the left lateral costophrenic angle. Small left and trace right effusions may be present. No pneumothorax. Osseous structures and upper abdomen normal. IMPRESSION: 1. Interval development of left greater than right basilar opacities as well as a focal nodular opacity at the left lung base. This could represent aspiration, mild edema, or infection. 2. Small left and trace right pleural effusions suspected. Electronically signed by: Frederick Fajardo M.D. 06/16/2017 9:48 AM Dictated Date/Time: 06/16/2017 9:45 AM (CHEST FOR PE) ANGIO WITH CT DOSE: 615.60 mGy.cm HISTORY: Chest pain dyspnea TECHNIQUE: Multiaxial CT images of the chest were performed following the intravenous administration of contrast to evaluate the pulmonary arteries. Maximal intensity projection images were also obtained. A dose lowering technique was utilized adhering to the principles of ALARA. COMPARISON STUDY: 05/11/2017 FINDINGS: Mild atherosclerotic change thoracic aorta. The pulmonary arterial vasculature enhances appropriately. There are no current filling defects. Unchanging linear parenchymal density right upper lung possibly atelectatic in nature. Unchanging small right pleural effusion with right basilar atelectatic/consolidative change. Mild increase in volume of the pericardial effusion. Maximum current thickness is 9 mm. Persistent anterior mediastinal fat stranding which is similar as compared to the prior study. Interval trace pleural fluid left lung base with left basilar atelectatic change also progressive. IMPRESSION: 1. No evidence for pulmonary embolus at the current time. 2. Small emboli described previously have resolved. 3. Unchanging right pleural effusion with right basilar atelectatic change. 4. Interval small left pleural effusion with left basilar atelectasis. 6. Interval development of a 9 mm pericardial effusion. The above report was generated using voice recognition software. It may contain grammatical, syntax or spelling errors. Electronically signed by: Tim Siegel M.D. 06/16/2017 11:49 AM Dictated Date/Time: 06/16/2017 11:39 AM Laboratory Results Test 06/16/17 08:54 06/16/17 09:07 Immature Granulocyte % (Auto) 0.2 % White Blood Count 11.21 K/uL (4.8-10.8) Red Blood Count 4.33 M/uL (4.2-5.4) Hemoglobin 11.6 g/dL (12.0-16.0) Hematocrit 36.9 % (37-47) Mean Corpuscular Volume 85.2 fL (80-100) Mean Corpuscular Hemoglobin 26.8 pg (25-34) Mean Corpuscular Hemoglobin Concent 31.4 g/dl (32-36) Platelet Count 350 K/uL (130-400) Mean Platelet Volume 10.2 fL (7.4-10.4) Neutrophils (%) (Auto) 76.1 % Lymphocytes (%) (Auto) 12.4 % Monocytes (%) (Auto) 9.3 % Eosinophils (%) (Auto) 1.6 % Basophils (%) (Auto) 0.4 % Neutrophils # (Auto) 8.54 K/uL (1.4-6.5) Lymphocytes # (Auto) 1.39 K/uL (1.2-3.4) Monocytes # (Auto) 1.04 K/uL (0.11-0.59) Eosinophils # (Auto) 0.18 K/uL (0-0.5) Basophils # (Auto) 0.04 K/uL (0-0.2) Immature Granulocyte # (Auto) 0.02 K/uL (0.00-0.02) Activated Partial Thromboplast Time 39.0 SECONDS (21.0-31.0) Partial Thromboplastin Ratio 1.5 Total Bilirubin 0.4 mg/dl (0.2-1) Direct Bilirubin < 0.1 mg/dl (0-0.2) Aspartate Amino Transf (AST/SGOT) 13 U/L (15-37) Alanine Aminotransferase (ALT/SGPT) 22 U/L (12-78) Alkaline Phosphatase 148 U/L (45-117) Pro-B-Type Natriuretic Peptide 311 pg/ml (0-900) Total Protein 8.3 gm/dl (6.4-8.2) Albumin 2.9 gm/dl (3.4-5.0) Bedside Troponin I < 0.030 ng/ml (0-0.045) Laboratory results per my review. Medications Administered Medications (Trade) Dose Ordered Sig/[place] Route Start Time Stop Time Status Last Admin Dose Admin Acetaminophen (Tylenol Tab) 650 mg Q4H PRN PO 06/16/17 13:15 07/16/17 13:14 06/17/17 16:09 650 MG Ondansetron HCl (Zofran Inj) 4 mg Q6H PRN IV 06/16/17 13:15 07/16/17 13:14 06/16/17 14:43 4 MG Morphine Sulfate (MoRPHine SULFATE INJ) 4 mg Q4H PRN IV 06/16/17 13:15 06/16/17 21:26 DC 06/16/17 19:38 4 MG Clonazepam (Klonopin Tab) 0.25 mg DAILY PRN PO 06/16/17 13:15 07/16/17 13:14 06/17/17 16:06 0.25 MG Potassium Chloride (Klor-Con Tab) 20 meq NOW ONCE PO 06/16/17 13:15 06/16/17 14:35 DC 06/16/17 14:49 20 MEQ ECG Indication: chest pain Rate (beats per minute): 94 Rhythm: normal sinus Findings: RBBB, no acute ischemic change, no ectopy ED Course 923: Past medical records reviewed. The patient was evaluated in room A9. A complete history and physical examination was performed. 30: Ordered Nitroglycerin 0.4 mg SL. 1209: I discussed the case with Dr. Nini Valdez [facility] [place] at this [place]. She will evaluate the patient for further treatment. Medical Decision Differential diagnoses includes acute coronary syndrome, pleural effusion, pulmonary embolus, aortic dissection, musculoskeletal pain, pneumonia, pleural effusion, pneumothorax, gastritis, peptic ulcer disease. This patient was evaluated and appeared to be in no significant distress. IV access was obtained and laboratory work was drawn. EKG reveals a right bundle- branch block. There is no evidence of acute ischemic change. Laboratory work reveals a mild leukocytosis, subtherapeutic INR. Chest x-ray was obtained and reveals bilateral pleural effusions. Follow-up CT scan of the chest is read as above. There is no acute PE, no focal infiltrate however there are bilateral effusions. There is also noted to be a mildly larger pericardial effusion. Patient will be evaluated by the hospitalist service for further management. Medication Reconcilliation Current Medication List: was personally reviewed by me Blood Pressure Screening Patient's blood pressure: Normal blood pressure Consults Time Called: 1205 Consulting Physician: Dr. Nini ESPAÑA Hospitalist Returned Call: 1206 I discussed the case with Dr. Nini ESPAÑA Hospitalist, at this time. She will evaluate the patient for further treatment. Impression Primary Impression: Bilateral pleural effusion Additional Impressions: Pericardial effusion Chest pain Scribe Attestation The scribe's documentation has been prepared under my direction and personally reviewed by me in its entirety. I confirm that the note above accurately reflects all work, treatment, procedures, and medical decision making performed by me. Departure Information Dispostion Being Evaluated By Hospitalist Referrals Renzo Barker M.D. (PCP) Patient Instructions My [facility] Problem Qualifiers
[2017-06-16] MEDS ORDERED: NITROGLYCERIN 0.4 MG SL PER TAB CHARGE SL PRN ×2 (09:30→13:15)
[2017-06-16 09:47] LABS: BASO % 0.4 %; BASO ABS # 0.04 K/uL (0-0.2); COMPLETE YES; EOS % 1.6 %; HEMATOCRIT 36.9 % (37-47); IG% 0.2 %; LYMPH % 12.4 %; LYMPH ABS # 1.39 K/uL (1.2-3.4); MEAN CELL VOLUME 85.2 fL (80-100); MEAN CORPUSCULAR HEMOGLOBIN 26.8 pg (25-34); MEAN CORPUSCULAR HGB CONC 31.4 g/dl (32-36); MEAN PLATELET VOLUME 10.2 fL (7.4-10.4); MONO % 9.3 %; NEUT % 76.1 %; PLATELET COUNT 350 K/uL (130-400); RED BLOOD COUNT 4.33 M/uL (4.2-5.4); WHITE BLOOD COUNT 11.21 K/uL (4.8-10.8)
--- NOTE | 2017-06-16 09:49 | DIAGNOSTIC IMAGING REPORT ---
CHEST ONE VIEW PORTABLE CLINICAL HISTORY: 72 years-old Female presenting with Chest pain, h/o PE, AVR. TECHNIQUE: Portable upright AP view of the chest was obtained. COMPARISON: 06/02/2017. FINDINGS: Cardiomediastinal silhouette normal. Mildly low lung volumes with hypoventilatory changes. Persistent elevation of the right hemidiaphragm. Interval development of left greater than right basilar opacities. Nodular focus at the left lateral costophrenic angle. Small left and trace right effusions may be present. No pneumothorax. Osseous structures and upper abdomen normal. IMPRESSION: 1. Interval development of left greater than right basilar opacities as well as a focal nodular opacity at the left lung base. This could represent aspiration, mild edema, or infection. 2. Small left and trace right pleural effusions suspected. Electronically signed by: Frederick Fajardo M.D. 06/16/2017 9:48 AM Dictated Date/Time: 06/16/2017 9:45 AM
[2017-06-16 09:52] LABS: INR 1.6 (0.9-1.1); PARTIAL THROMBOPLASTIN RATIO 1.5; PROTHROMBIN TIME (PATIENT) 17.3 SECONDS (9.0-12.0)
[2017-06-16 09:55] LABS: ALT/SGPT 22 U/L (12-78); AST/SGOT 13 U/L (15-37); BLOOD UREA NITROGEN 18 mg/dl (7-18); BUN/CREATININE RATIO 16.1 (10-20); CALCIUM 8.9 mg/dl (8.5-10.1); CARBON DIOXIDE 26 mmol/L (21-32); CHLORIDE 104 mmol/L (98-107); GLUCOSE 120 mg/dl (70-99); POTASSIUM 3.5 mmol/L (3.5-5.1); SODIUM 137 mmol/L (136-145)
[2017-06-16 09:59] LABS: ALKALINE PHOSPHATASE 148 U/L (45-117)
[2017-06-16] MEDS ORDERED: MIRT15TA PO (10:14)
--- NOTE | 2017-06-16 11:50 | DIAGNOSTIC IMAGING REPORT ---
(CHEST FOR PE) ANGIO WITH CT DOSE: 615.60 mGy.cm HISTORY: Chest pain dyspnea TECHNIQUE: Multiaxial CT images of the chest were performed following the intravenous administration of contrast to evaluate the pulmonary arteries. Maximal intensity projection images were also obtained. A dose lowering technique was utilized adhering to the principles of ALARA. COMPARISON STUDY: 05/11/2017 FINDINGS: Mild atherosclerotic change thoracic aorta. The pulmonary arterial vasculature enhances appropriately. There are no current filling defects. Unchanging linear parenchymal density right upper lung possibly atelectatic in nature. Unchanging small right pleural effusion with right basilar atelectatic/consolidative change. Mild increase in volume of the pericardial effusion. Maximum current thickness is 9 mm. Persistent anterior mediastinal fat stranding which is similar as compared to the prior study. Interval trace pleural fluid left lung base with left basilar atelectatic change also progressive. IMPRESSION: 1. No evidence for pulmonary embolus at the current time. 2. Small emboli described previously have resolved. 3. Unchanging right pleural effusion with right basilar atelectatic change. 4. Interval small left pleural effusion with left basilar atelectasis. 6. Interval development of a 9 mm pericardial effusion. The above report was generated using voice recognition software. It may contain grammatical, syntax or spelling errors. Electronically signed by: Tim Siegel M.D. 06/16/2017 11:49 AM Dictated Date/Time: 06/16/2017 11:39 AM
[2017-06-16] MEDS ORDERED: ACETAMINOPHEN 325 MG TAB PO PRN (13:15)
[2017-06-16] MEDS ORDERED: ALUMINUM/MAGNESIUM/SIMETH (MAALOX MAX) 30 ML UDC PO PRN (13:15)
[2017-06-16] MEDS ORDERED: ONDANSETRON INJ 2 MG/ML 2 ML VIAL IV PRN (13:15)
[2017-06-16] MEDS ORDERED: POTASSIUM CHLORIDE 20 MEQ TABCR PO ONE (13:15)
[2017-06-16] MEDS ORDERED: POLYETHYLENE (MIRALAX) 17 GM PACK PO PRN (13:15)
[2017-06-16] MEDS ORDERED: MAGNESIUM HYDROXIDE SUSP 30 ML UDC PO PRN (13:15)
[2017-06-16] MEDS ORDERED: KLN5X PO (13:22)
[2017-06-16] MEDS ORDERED: ENOXAPARIN 150 MG/1ML SYR SQ ONE (14:00)
--- NOTE | 2017-06-16 14:03 | History and Physical ---
History & Physical Date & Time of Service: Jun 16, 2017 at 13:31 Chief Complaint: Chest Pains Primary Care Physician: Renzo Barker M.D. History of Present Illness Source: patient, spouse (), hospital records This is a 72 y/o female with a history of bioprosthetic AVR, diastolic dysfunction, HTN, HLD, h/o DVT/PE on warfarin, anxiety and depression, GERD, Smith's esophagus, SALVATORE and insomnia who presented to the ED on 06/16 with chest pain. The patient states that her pain began several days ago, originating on the right side of her chest and only intermittently radiating to the left. Three or four days ago, however, the pain began to occur more on the left side of the chest and was increasing in intensity. The pain has sometimes radiated to her back and to her left shoulder. This morning, the patient has had severe 10/10 tight chest pain since waking up around 5 am. She has associated shortness of breath and pleuritic pain. The patient states that pain and SOB is worse with laying down. Sitting forward does not affect the pain. She also complains of an intermittent non-productive cough and wheezing. The patient denies fevers, chills, sweats,palpitations, claudication, nausea, vomiting, abdominal pain, dysuria, hematuria, urinary retention, paralysis, weakness, numbness and tingling. Past Medical/Surgical History Medical Problems: (1) back surgery Status: Resolved (2) Smith's esophagus Status: Chronic (3) Hypertension Status: Chronic (4) Patellar tendonitis Status: Chronic AVR HLD Diastolic dysfunction Anxiety/depression GERD SALVATORE Insomnia H/o PE Surgical Problems: (1) Hx of cholecystectomy Status: Resolved Bioprosthetic AVR 04/11/17 Family History Diabetes mellitus FH: cancer FH: heart disease FH: lung disease Gallbladder disease Hypertension Kidney disease Kidney stones Social History Smoking Status: Never Smoker Smokeless Tobacco Use: No Alcohol Use: none Drug Use: none Marital Status: Housing status: lives with significant other Occupational Status: retired Immunizations History of Influenza Vaccine: Yes History of Tetanus Vaccine?: No History of Pneumococcal: Yes History of Hepatitis B Vaccine: No Multi-Drug Resistant Organisms History of MDRO: No Allergies Coded Allergies: Niacin (Verified Allergy, Intermediate, RASH, 06/02/17) Atorvastatin (Verified Adverse Reaction, Mild, MUSCLE ACHES, 06/02/17) Diltiazem (Verified Adverse Reaction, Mild, HEADACHE, 06/02/17) Home Medications Scheduled Aspirin (Aspirin Ec), 81 MG PO QAM Baclofen (Baclofen), 10 MG PO BID Carvedilol (Carvedilol), 3.125 MG PO BID Cholecalciferol (Vitamin D3), 2,000 INTER.UNIT PO DAILY Clonazepam (Clonazepam), 0.5 MG PO HS Colchicine (Colchicine), 0.6 MG PO BID Hydrochlorothiazide (Hydrochlorothiazide), 25 MG PO QAM Lisinopril (Lisinopril), 20 MG PO QAM Mirtazapine (Remeron), 15 MG PO QPM Pantoprazole (Pantoprazole Sodium), 40 MG PO BID Ranitidine Hcl (Zantac), 150 MG PO BID Rosuvastatin Calcium (Rosuvastatin Calcium), 20 MG PO DAILY Warfarin Sodium (Warfarin Sodium), 2.5 MG PO DAILY Scheduled PRN Clonazepam (Klonopin), 0.25 MG PO DAILY PRN for Anxiety/Agitation Review of Systems Constitutional: + weakness, + fatigue, No fever, No chills, No sweats Eyes: No worsening of vision, No eye pain, No diplopia ENT: No hearing loss, No sore throat, No trouble swallowing Respiratory: + cough (intermittent), + wheezing, + shortness of breath, No sputum Cardiovascular: + chest pain, + orthopnea, No palpitations Abdomen: No pain, No nausea, No vomiting Musculoskeletal: No joint pain, No muscle pain, No calf pain Genitourinary - Female: No dysuria, No urinary retention, No hematuria Neurologic: No paralysis, No weakness, No numbness/tingling Integumentary: No rash, No itch, No color change Physical Exam Vital Signs Date Time Temp Pulse Resp B/P (MAP) Pulse Ox O2 Delivery O2 Flow Rate FiO2 06/16/17 13:11 92 Nasal Cannula 2.0 06/16/17 13:01 37.0 95 24 123/77 92 Nasal Cannula 2.0 06/16/17 12:00 95 24 123/77 92 06/16/17 10:06 93 23 98 06/16/17 10:01 92 28 98 06/16/17 09:56 91 29 97 06/16/17 09:51 91 28 98 06/16/17 09:46 92 24 97 06/16/17 09:41 92 27 99 06/16/17 09:36 93 19 98 06/16/17 09:31 92 27 98 06/16/17 09:26 92 27 97 06/16/17 09:21 86 26 97 06/16/17 09:16 93 28 97 06/16/17 09:14 100 Nasal Cannula 2.0 06/16/17 09:13 97 Room Air 06/16/17 09:11 94 26 99 06/16/17 09:06 95 33 98 06/16/17 09:01 94 06/16/17 09:01 95 27 06/16/17 08:56 98 Room Air 06/16/17 08:51 137/85 06/16/17 08:51 37.0 97 37 137/85 95 Room Air General appearance: +Obese, appears fatigued. Well-developed, well-nourished, no apparent distress Head: Normocephalic, atraumatic Eyes: Normal inspection, PERRL, EOMI ENT: Normal ENT inspection, hearing grossly normal, pharynx normal Neck: Supple, no JVD, trachea midline Respiratory/Chest: +Crackles in bases, R>L, Normal breath sounds, no respiratory distress Cardiovascular: Regular rate & rhythm, no gallop, no murmur Abdomen/GI: +Mild epigastric tenderness. Normal bowel sounds, non-tender, soft Extremities/Musculoskeletal: Normal inspection, no calf tenderness, no pedal edema Neurological/Psych: Alert, normal mood/affect, oriented x 3 Skin: Normal color, warm/dry, no rash Diagnostics Laboratory Results Results Past 24 Hours Test 06/16/17 08:54 06/16/17 09:07 Range/Units White Blood Count 11.21 4.8-10.8 K/uL Red Blood Count 4.33 4.2-5.4 M/uL Hemoglobin 11.6 12.0-16.0 g/dL Hematocrit 36.9 37-47 % Mean Corpuscular Volume 85.2 80-100 fL Mean Corpuscular Hemoglobin 26.8 25-34 pg Mean Corpuscular Hemoglobin Concent 31.4 32-36 g/dl Platelet Count 350 130-400 K/uL Mean Platelet Volume 10.2 7.4-10.4 fL Neutrophils (%) (Auto) 76.1 % Lymphocytes (%) (Auto) 12.4 % Monocytes (%) (Auto) 9.3 % Eosinophils (%) (Auto) 1.6 % Basophils (%) (Auto) 0.4 % Neutrophils # (Auto) 8.54 1.4-6.5 K/uL Lymphocytes # (Auto) 1.39 1.2-3.4 K/uL Monocytes # (Auto) 1.04 0.11-0.59 K/uL Eosinophils # (Auto) 0.18 0-0.5 K/uL Basophils # (Auto) 0.04 0-0.2 K/uL RDW Standard Deviation 49.1 36.4-46.3 fL RDW Coefficient of Variation 15.8 11.5-14.5 % Immature Granulocyte % (Auto) 0.2 % Immature Granulocyte # (Auto) 0.02 0.00-0.02 K/uL Prothrombin Time 17.3 9.0-12.0 SECONDS Prothromb Time International Ratio 1.6 0.9-1.1 Activated Partial Thromboplast Time 39.0 21.0-31.0 SECONDS Partial Thromboplastin Ratio 1.5 Sodium Level 137 136-145 mmol/L Potassium Level 3.5 3.5-5.1 mmol/L Chloride Level 104 98-107 mmol/L Carbon Dioxide Level 26 21-32 mmol/L Anion Gap 7.0 3-11 mmol/L Blood Urea Nitrogen 18 7-18 mg/dl Creatinine 1.10 0.60-1.20 mg/dl Est Creatinine Clear Calc Drug Dose 51.8 ml/min Estimated GFR () 58.5 Estimated GFR (Non- 50.5 BUN/Creatinine Ratio 16.1 10-20 Random Glucose 120 70-99 mg/dl Calcium Level 8.9 8.5-10.1 mg/dl Total Bilirubin 0.4 0.2-1 mg/dl Direct Bilirubin < 0.1 0-0.2 mg/dl Aspartate Amino Transf (AST/SGOT) 13 15-37 U/L Alanine Aminotransferase (ALT/SGPT) 22 12-78 U/L Alkaline Phosphatase 148 45-117 U/L Total Creatine Kinase 27 26-192 U/L Creatine Kinase MB < 0.5 0.5-3.6 ng/ml Creatine Kinase MB Ratio 0-3.0 Total Protein 8.3 6.4-8.2 gm/dl Albumin 2.9 3.4-5.0 gm/dl Bedside Troponin I < 0.030 0-0.045 ng/ml Diagnostic Radiology Reviewed the following studies and agree with interpretation as follows: Patient Name: NEY VALDOVINOS Unit Number: [id number] Dictated: 06/16/17944 Transcribed: 06/16/17944 PBS Printed Date/Time: [~ rep prt dt]/[~ rep prt tm] [~ rep ct labl] - [~ rep ct ivnm] [facility] [place] [address] Dictated: 06/16/17944 Transcribed: 06/16/17944 PBS Printed Date/Time: [~ rep prt dt]/[~ rep prt tm] [~ rep ct labl] - [~ rep ct ivnm] Patient: NEY VALDOVINOS Address1: [address] [place] [address] Rec: [id number] Address2: Acct ID: [id number] [facility] Zip: [place] [address] Date: 1945 Sex: F Room/Bed: Ref Phy: Renzo Barker M.D. SC: ELIF Carrasquillo Phy: Report #: [id number] Mi Phy: Renzo Barker M.D. Test: CXR1P Admit Phy: Academic Affairs Manager: BLANE Interpreting Phy: Frederick Fajardo MD Diagnosis: CHEST PAINS Ordering Phy: Michell Orta M.D. Service Date: 06/16/17 Admit Date: 06/16/17 MNE: [id number] CONF: DICTATED BY: Frederick Fajardo MD]] CC: Michell Orta M.D. Hester, Christopher E., M.D. Endcc: [~ rep ct add3]] CHEST ONE VIEW PORTABLE CLINICAL HISTORY: 72 years-old Female presenting with Chest pain, h/o PE, AVR. TECHNIQUE: Portable upright AP view of the chest was obtained. COMPARISON: 06/02/2017. FINDINGS: Cardiomediastinal silhouette normal. Mildly low lung volumes with hypoventilatory changes. Persistent elevation of the right hemidiaphragm. Interval development of left greater than right basilar opacities. Nodular focus at the left lateral costophrenic angle. Small left and trace right effusions may be present. No pneumothorax. Osseous structures and upper abdomen normal. IMPRESSION: 1. Interval development of left greater than right basilar opacities as well as a focal nodular opacity at the left lung base. This could represent aspiration, mild edema, or infection. 2. Small left and trace right pleural effusions suspected. Electronically signed by: Frederick Fajardo M.D. 06/16/2017 9:48 AM Dictated Date/Time: 06/16/2017 9:45 AM The status of this report is Signed. Draft = Not yet reviewed or approved by Radiologist. Signed = Reviewed and approved by Radiologist. <AttendingPhy></AttendingPhy> <FamilyPhy>Renzo Barker M.D.</FamilyPhy > <PrimaryPhy>Renzo Barker M.D.</PrimaryPhy> <UnitNumber>[id number]</ UnitNumber> <VisitNumber>[id number]</VisitNumber> <PatientName>NEY VALDOVINOS </PatientName> <DateOfBirth>1945</DateOfBirth> <Location>[facility]</Location> <ServiceDate>06/16/17</ServiceDate> <MNE>ESINDI</MNE> <OrderingPhy>Michell Orta M.D.</OrderingPhy> <OrderingPhyMNE>f rep ord dr leiva</OrderingPhyMNE> < DictatingPhyMNE>f rep dict dr leiva</DictatingPhyMNE> <CCListMNE>f rep ct abbie</ CCListMNE> <AdmittingPhyMNE>f pt admit dr leiva</AdmittingPhyMNE> <AttendingPhyMNE >f pt attend dr leiva</AttendingPhyMNE> <ConsultingPhyMNE>f pt consult dr leiva</ConsultingPhyMNE> <FamilyPhyMNE>f pt fam dr leiva</FamilyPhyMNE> <OtherPhyMNE>f pt other dr leiva</OtherPhyMNE> < PrimaryPhyMNE>f pt prim care dr leiva</PrimaryPhyMNE> <ReferringPhyMNE>f pt referring dr leiva</ReferringPhyMNE> Patient Name: NEY VALDOVINOS Unit Number: [id number] Dictated: 06/16/171138 Transcribed: 06/16/171138 MS Printed Date/Time: [~ rep prt dt]/[~ rep prt tm] [~ rep ct labl] - [~ rep ct ivnm] [facility] Radiology Department [place] [id number] Dictated: 06/16/171138 Transcribed: 06/16/171138 MS Printed Date/Time: [~ rep prt dt]/[~ rep prt tm] [~ rep ct labl] - [~ rep ct ivnm] Patient: NEY VALDOVINOS Address1: [address] [place] [address] Rec: [id number] [id number] Zip: [place] [address] Date: 1945 Sex: F Room/Bed: Ref Phy: Renzo Fuentes MD SC: ELIF Att Phy: Report #: [id number] Mi Phy: Renzo Barker M.D. Test: CXPEA Admit Phy: Academic Affairs Manager: CHESTER Interpreting Phy: Tim Siegel M.D. Diagnosis: CHEST PAINS Ordering Phy: Michell Orat M.D. Service Date: 06/16/17 Admit Date: 06/16/17 MNE: [id number] CONF: DICTATED BY: Tim Siegel M.D.]] CC: Michell Orta M.D. Hester, Christopher E., M.D. Jones, Christopher R., MD Endcc: [~ rep ct add3]] (CHEST FOR PE) ANGIO WITH CT DOSE: 615.60 mGy.cm HISTORY: Chest pain dyspnea TECHNIQUE: Multiaxial CT images of the chest were performed following the intravenous administration of contrast to evaluate the pulmonary arteries. Maximal intensity projection images were also obtained. A dose lowering technique was utilized adhering to the principles of ALARA. COMPARISON STUDY: 05/11/2017 FINDINGS: Mild atherosclerotic change thoracic aorta. The pulmonary arterial vasculature enhances appropriately. There are no current filling defects. Unchanging linear parenchymal density right upper lung possibly atelectatic in nature. Unchanging small right pleural effusion with right basilar atelectatic/consolidative change. Mild increase in volume of the pericardial effusion. Maximum current thickness is 9 mm. Persistent anterior mediastinal fat stranding which is similar as compared to the prior study. Interval trace pleural fluid left lung base with left basilar atelectatic change also progressive. IMPRESSION: 1. No evidence for pulmonary embolus at the current time. 2. Small emboli described previously have resolved. 3. Unchanging right pleural effusion with right basilar atelectatic change. 4. Interval small left pleural effusion with left basilar atelectasis. 6. Interval development of a 9 mm pericardial effusion. The above report was generated using voice recognition software. It may contain grammatical, syntax or spelling errors. Electronically signed by: Tim Siegel M.D. 06/16/2017 11:49 AM Dictated Date/Time: 06/16/2017 11:39 AM The status of this report is Signed. Draft = Not yet reviewed or approved by Radiologist. Signed = Reviewed and approved by Radiologist. <AttendingPhy></AttendingPhy> <FamilyPhy>Renzo Fuentes MD</FamilyPhy> < PrimaryPhy>Renzo Barker M.D.</PrimaryPhy> <UnitNumber>[id number]</ UnitNumber> <VisitNumber>[id number]</VisitNumber> <PatientName>NEY VALDOVINOS </PatientName> <DateOfBirth>1945</DateOfBirth> <Location>[facility]</Location> <ServiceDate>06/16/17</ServiceDate> <MNE>ESINDI</MNE> <OrderingPhy>Michell Orta M.D.</OrderingPhy> <OrderingPhyMNE>f rep ord dr leiva</OrderingPhyMNE> < DictatingPhyMNE>f rep dict dr leiva</DictatingPhyMNE> <CCListMNE>f rep ct mne</ CCListMNE> <AdmittingPhyMNE>f pt admit dr leiva</AdmittingPhyMNE> <AttendingPhyMNE >f pt attend dr leiva</AttendingPhyMNE> <ConsultingPhyMNE>f pt consult dr leiva</ConsultingPhyMNE> <FamilyPhyMNE>f pt fam dr eliva</FamilyPhyMNE> <OtherPhyMNE>f pt other dr leiva</OtherPhyMNE> < PrimaryPhyMNE>f pt prim care dr leiva</PrimaryPhyMNE> <ReferringPhyMNE>f pt referring dr leiva</ReferringPhyMNE> Impression Assessment and Plan 72 y/o female with a history of bioprosthetic AVR, diastolic dysfunction, HTN, HLD, h/o DVT/PE on warfarin, anxiety and depression, GERD, Smith's esophagus, SALVATORE and insomnia who presented to the ED on 06/16 with chest pain. Pt tachycardic on arrival but afebrile and otherwise VSS and on room air. EKG shows no acute ischemic changes. CXR shows basilar opacities, L>R. CTA shows resolved emboli without any current PE, unchanged right pleural effusion, interval development of small left pleural effusion, and mild increase in size of pericardial effusion. WBC 11.21, Hgb 11.6. INR subtherapeutic at 1.6. Cardiac enzymes negative. Chest pain, pericardial effusion, h/o pericarditis--pt started on colchicine and ibuprofen last admission in late May, now only taking the colchicine. Completed a Medrol dose pack from PCP last week -Admit to telemetry -Trend cardiac enzymes q8h x 3 sets total -EKG q am and prn with chest pain -Morphine 4 mg IV q4h prn pain -Consult cardiology regarding pericardial effusion. This was noted on echo (05/28) before. Pt follows with Dr. Fuentes -Consider repeating limited echo to reassess pericardial effusion, appreciate cardiac input -Continue colchicine 0.6 mg PO BID -Start ibuprofen 600 mg PO TID scheduled Bilateral pleural effusions R>L, diastolic dysfunction--acute diastolic CHF? -Trial of Lasix 20 mg IV x 1 -Monitor daily weights, I's & O's -Check BNP -Consult pulmonology regarding effusions H/o PE--stable, no PE on CTA on admission -INR subtherapeutic at 1.6 -Increase home warfarin dose to 5 mg PO today -Bridge with Lovenox 1.5 mg/kg SC q24h today -Recheck PT/INR tomorrow morning, can continue Lovenox bridge as needed if still subtherapeutic Bioprosthetic aortic valve replacement--done at [place] on 04/11/[address] Romero -Warfarin as above HTN--stable -Continue Coreg 3.125 mg PO BID, HCTZ 25 mg PO qd and lisinopril 20 mg PO qd HLD -Continue Crestor 20 mg PO qd Anxiety and depression, insomnia -Continue clonazepam 0.25 mg PO qd prn and 0.5 mg PO qhs and mirtazapine 15 mg PO qhs GERD, Smith's esophagus -Continue Protonix 40 mg PO BID and Zantac 150 mg PO BID DVT prophylaxis -Lovenox bridge/warfarin -PADMINI flores and Charly Code Status -Level I, FULL RESUSCITATION STATUS Level of Care Telemetry Advanced Directives Existing Living Will: Yes Existing Power of Lead Cargoman: Yes Resuscitation Status FULL RESUSCITATION VTE Prophylaxis VTE Risk Assessment Done? Y/N: Yes Risk Level: Moderate Given or contraindicated: Enoxaparin (Lovenox)SQ, Warfarin (Coumadin), T.E.D. Stockings, SCD's Reviewed: Pt Seen/Exam by Me History Physician Receiving Specialist Supervision Note: I interviewed and examined the patient. Discussed with YG Bowen and agree with findings and plan as documented in the note. Any exceptions or clarifications are listed here: Patient with pleuritic chest pain and worsening left pleural effusion and pericardial effusion now almost 2 months postoperative from a mini thoracotomy for aortic valve replacement. She finished a Medrol Dosepak one week ago and stopped the NSAIDs at home due to GI upset. She has continued on colchicine twice a day and has had some diarrhea associated with that for a few days. She is afebrile. CT angiogram did not show any persistent PEs. Vital signs are stable and not consistent with cardiac tamponade. ECG, CT chest, and chest x-ray all reviewed personally by me Vitals reviewed No acute distress, lying in bed Anicteric sclerae, oropharynx clear Regular rate and rhythm, no murmurs gallops or rubs, no tenderness to palpation over the anterior chest wall Lungs with decreased breath sounds at the bases bilaterally, no wheezes crackles or rhonchi, wheezing is unlabored Abdomen positive bowel sounds soft nontender nondistended Extremities no edema, 2 posterior cells pedis pulses bilaterally Skin no rashes This patient is a 72-year-old female here with severe left-sided pleuritic chest pain with worsening pericardial effusion and persistent right sided pleural effusion as well as new left-sided pleural effusion and a small. I discussed the case with comic book designer. -We'll check limited echo to further assess the pericardial effusion -We'll try NSAIDs but if patient refuses due to GI upset, will hold off -She may have rebounded after stopping her Medrol Dosepak, but may end up having to restart low-dose corticosteroids for pericarditis -Continue PPI and H2 danny twice a day -Appreciate pulmonology and cardiology consultations Documented By: Marcelina Terrazas
[2017-06-16] MEDS ORDERED: FUROSEMIDE INJ 20 MG in SYRINGE 0 ML IV ONE (14:30)
[2017-06-16] MEDS ORDERED: IV FLUIDS COMPLETED PRN (14:45)
[2017-06-16] MEDS: MoRPHine SULFATE 4 MG/ML 1 ML CARP\\VIAL IV PRN ×2 (14:46→19:38)
[2017-06-16] MEDS ORDERED: NURSING VERBAL MED ORDER ONE (15:45)
[2017-06-16] MEDS ORDERED: WARFARIN SOD 5 MG TAB PO SCH (16:00)
[2017-06-16] MEDS ORDERED: MICONAZOLE NITRATE POWDER 43 GM EXT PRN (16:00)
--- NOTE | 2017-06-16 16:34 | Pulmonary Consultation ---
History General Date of Service: Jun 16, 2017. Stated Complaint: Chest Pains, Pericardial Effusion HPI The patient is a 72 year old female who presents to [facility] with complaints of Chest Pains, Pericardial Effusion. The patient's primary care provider is Renzo Barker M.D.. Mrs. Madsen is 72- year old female with past medical historyhypertension, hyperlipidemia, osteoarthritis, obstructive sleep apnea, depression and anxiety GERD and fatty liver disease who presents with one month history chest pain. In April 2017, she underwent bioprostethic aortic valve replacement for severe aortic stenosis with mini right thoracotomy at [facility]. The procedure was uneventful, however her recovery has been complicated pleuritic chest pain, pleural effusion, post procedure pericarditis and shortness of breath. Of note ,patient has admitted in 05/11/2017 for acute shortness of breath and chest tightness. At that time she was found to have recent nonocclusive DVT within the right peroneal vein DVT/ segmental and subsegmental pulmonary emboli within branches of the left lower lobe pulmonary artery. She was subsequently started on anticoagulation. She also had a moderate right pleural effusion with associated right basilar consolidation. She was also treated empirically for HCAP at that time with broad spectrum antibiotics. She was readmitted on 05/27/2017 and treated or post procedure pericardititis / pleurisy and started on colchicine , motrin and Medrol dose pack. She visited the ER for similar complaints on 06/01 and 06/02/2017 with complaints of shortness of breath and chest tightness. It was felt that anxiety was contributing to her symptoms. Today, she presents with one week history of worsening chest pain. She states that pain initially started on the right chest tightness associated with deep inspiration and radiated to back but progressed to left shoulder and chest. This morning it was a 10/10 pain associated with worsening dyspnea. Pain is exacerbated with laying supine. She states that she has had persistent dyspnea since surgery in April and sometimes associated with nonproductive cough and occasional wheezing. She denies any fever, chills, night sweats, palpitations or lower extremity edema. She denies any sick contacts or recent travel. In the ER, her initial VS were 37 C, P 97, BP 137/85, RR 37, SaO2 95% on RA. Laboratory data reviewed. WBC was 11.21, Hemoglobin 11.6. Chemistry was remarkable for alkaline phosphate of 148, total protein 8,3, and albumin 2.9. BNP was 311, troponin 0.030. and INR 1.6 Imaging was reviewed and reported below. She was admitted to telemetry for chest pain and bilateral effusion. Historian: patient Onset: this morning Severity: severe Complaint Status: improved, persistent Quality of Pain: sharp Modifying Factors: pain medication Review of Systems Constitutional: reports: malaise Eyes: reports: as stated in HPI ENT: reports: no symptoms Cardiovascular: reports: chest pain, chest pressure, chest tightness, denies: palpitations, syncope Respiratory: reports: cough, orthopnea, shortness of breath, wheezing, , denies: stridor, sputum production, cyanosis, PND, hemoptysis Gastrointestinal: reports: diarrhea, nausea, denies: vomiting Genitourinary - Female: reports: no symptoms Musculoskeletal: reports: no symptoms Integumentary: reports: no symptoms Neurologic: reports: no symptoms Endocrine: no symptoms Hematologic / Lymphatic: no symptoms Allergic / Immunologic: no symptoms All Other Symptoms All Other Systems: Reviewed and Negative Past Medical History Past Medical History: PMH: severe aortic stenosis s/p bioprostethic aortic valve replacement (April 2017), hypertension, Barretts esophagus, RBBB, heterozygous for prothrombin gene mutation with history DVT/ PE now on coumadin , hyperlipidemia, osteoarthritis, obstructive sleep apnea, depression and anxiety, GERD and fatty liver disease Past Surgical History: PSH: minimally invasive AVR via right mini thoracotomy, cholecystectomy, arthroscopy of left knee, lower back surgery. Family History Diabetes mellitus FH: cancer FH: heart disease FH: lung disease Gallbladder disease Hypertension Kidney disease Kidney stones Family history: significant for colon cancer, cardiac disease, diabetes, hypertension, nephrolithiasis, lung cancer Social History Social history: She is a lifetime nonsmoker. 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 She denies any alcohol or illicit drug use. Uatsdin--does not receive any blood products. Hx Tobacco Use In Past Year?: No Smoking Status: Never Smoker Alcohol: never Drug Use: none Marital status: Housing status: lives with significant other Occupational Status: retired Immunizations History of Influenza Vaccine: Yes History of Tetanus Vaccine?: No History of Pneumococcal: Yes History of Hepatitis B Vaccine: No History of MDRO History of MDRO: No Allergies Coded Allergies: Niacin (Verified Allergy, Intermediate, RASH, 06/02/17) Atorvastatin (Verified Adverse Reaction, Mild, MUSCLE ACHES, 06/02/17) Diltiazem (Verified Adverse Reaction, Mild, HEADACHE, 06/02/17) Current Medications Reported Home Medications Medications Dose Route/Sig Max Daily Dose Days Date Category Dose Instructions Clonazepam 0.5 Mg Tab 0.5 Mg PO HS 06/16/17 Reported Remeron (Mirtazapine) 15 Mg Tab 15 Mg PO QPM 06/16/17 Reported Zantac (Ranitidine HCl) 150 Mg Tab 150 Mg PO BID 06/02/17 Reported Lisinopril 20 Mg Tab 20 Mg PO QAM 06/01/17 Reported Carvedilol 3.125 Mg Tab 3.125 Mg PO BID 06/01/17 Reported TAKE THIS MEDICATION WITH MORNING AND EVENING MEALS Baclofen 10 Mg Tab 10 Mg PO BID 06/01/17 Reported Pantoprazole Sodium (Pantoprazole) 40 Mg Tab 40 Mg PO BID 06/01/17 Reported Warfarin Sodium 2.5 Mg Tab 2.5 Mg PO DAILY 06/01/17 Reported TAKE 2.5 MG EVERY DAY OR OTHERWISE DIRECTED TO TAKE BY ANTICOAGULATION CLINIC/MD Colchicine 0.6 Mg Tab 0.6 Mg PO BID 06/01/17 Reported Hydrochlorothiazide 25 Mg Tab 25 Mg PO QAM 06/01/17 Reported Rosuvastatin Calcium 20 Mg Tab 20 Mg PO DAILY 05/11/17 Reported Vitamin D3 (Cholecalciferol) 2,000 Unit Cap 2,000 Inter.unit PO DAILY 03/27/17 Reported Klonopin (Clonazepam) 0.5 Mg Tab 0.25 Mg PO DAILY PRN 10/25/15 Reported Aspirin Ec (Aspirin) 81 Mg Tab 81 Mg PO QAM 05/09/13 Reported Physical Physical Exam Vital Signs: Date Time Temp Pulse Resp B/P (MAP) Pulse Ox O2 Delivery O2 Flow Rate FiO2 06/16/17 14:45 36.8 106 18 120/76 (91) 93 06/16/17 13:11 92 Nasal Cannula 2.0 06/16/17 13:01 37.0 95 24 123/77 92 Nasal Cannula 2.0 06/16/17 12:00 95 24 123/77 92 06/16/17 10:06 93 23 98 06/16/17 10:01 92 28 98 06/16/17 09:56 91 29 97 06/16/17 09:51 91 28 98 06/16/17 09:46 92 24 97 06/16/17 09:41 92 27 99 06/16/17 09:36 93 19 98 06/16/17 09:31 92 27 98 06/16/17 09:26 92 27 97 06/16/17 09:21 86 26 97 06/16/17 09:16 93 28 97 06/16/17 09:14 100 Nasal Cannula 2.0 06/16/17 09:13 97 Room Air 06/16/17 09:11 94 26 99 06/16/17 09:06 95 33 98 06/16/17 09:01 94 06/16/17 09:01 95 27 06/16/17 08:56 98 Room Air 06/16/17 08:51 137/85 06/16/17 08:51 37.0 97 37 137/85 95 Room Air General Appearance: WD/WN, NO APPARENT DISTRESS, obese Head: NORMOCEPHALIC, ATRAUMATIC Eyes: PERRLA, NO DISCHARGE, EOMI, SCLERAE NORMAL ENT: NORMAL EAR EXAM, NORMAL NASAL EXAM, NORMAL MOUTH EXAM, NORMAL THROAT EXAM Neck: NORMAL RANGE OF MOTION, NO TENDERNESS, TRACHEA MIDLINE, NO STRIDOR, SUPPLE Respiratory: other (Decreased breath sounds at right lower lobe. Good air entry bilaterally. Pleuritic chest pain on deep inspiration b/l. No wheezes. There is a incision on right chest wall. ) Cardiovasular: REGULAR RATE/RHYTHM (f), NORMAL S1S2 Abdomen: NON TENDER, NORMAL BOWEL SOUNDS Genitourinary - Female: EXTERNAL GENITALIA NORMAL Back: NORMAL INSPECTION Upper Extremities: NO EDEMA Edema: Bilateral LE (1+) Pulses: dorsalis pedis (R) (2+), dorsalis pedis (L) Neuro: ALERT, ORIENTED x 3, NORMAL MOTOR EXAM, NORMAL SENSATION, NORMAL SPEECH Psychiatric: NORMAL AFFECT, NO SUICIDAL IDEATION, CONTRACTS FOR SAFETY Diagnostics Labs Results Past 24 Hours Test 06/16/17 08:54 06/16/17 09:07 Range/Units White Blood Count 11.21 4.8-10.8 K/uL Red Blood Count 4.33 4.2-5.4 M/uL Hemoglobin 11.6 12.0-16.0 g/dL Hematocrit 36.9 37-47 % Mean Corpuscular Volume 85.2 80-100 fL Mean Corpuscular Hemoglobin 26.8 25-34 pg Mean Corpuscular Hemoglobin Concent 31.4 32-36 g/dl Platelet Count 350 130-400 K/uL Mean Platelet Volume 10.2 7.4-10.4 fL Neutrophils (%) (Auto) 76.1 % Lymphocytes (%) (Auto) 12.4 % Monocytes (%) (Auto) 9.3 % Eosinophils (%) (Auto) 1.6 % Basophils (%) (Auto) 0.4 % Neutrophils # (Auto) 8.54 1.4-6.5 K/uL Lymphocytes # (Auto) 1.39 1.2-3.4 K/uL Monocytes # (Auto) 1.04 0.11-0.59 K/uL Eosinophils # (Auto) 0.18 0-0.5 K/uL Basophils # (Auto) 0.04 0-0.2 K/uL RDW Standard Deviation 49.1 36.4-46.3 fL RDW Coefficient of Variation 15.8 11.5-14.5 % Immature Granulocyte % (Auto) 0.2 % Immature Granulocyte # (Auto) 0.02 0.00-0.02 K/uL Prothrombin Time 17.3 9.0-12.0 SECONDS Prothromb Time International Ratio 1.6 0.9-1.1 Activated Partial Thromboplast Time 39.0 21.0-31.0 SECONDS Partial Thromboplastin Ratio 1.5 Sodium Level 137 136-145 mmol/L Potassium Level 3.5 3.5-5.1 mmol/L Chloride Level 104 98-107 mmol/L Carbon Dioxide Level 26 21-32 mmol/L Anion Gap 7.0 3-11 mmol/L Blood Urea Nitrogen 18 7-18 mg/dl Creatinine 1.10 0.60-1.20 mg/dl Est Creatinine Clear Calc Drug Dose 51.8 ml/min Estimated GFR () 58.5 Estimated GFR (Non- 50.5 BUN/Creatinine Ratio 16.1 10-20 Random Glucose 120 70-99 mg/dl Calcium Level 8.9 8.5-10.1 mg/dl Total Bilirubin 0.4 0.2-1 mg/dl Direct Bilirubin < 0.1 0-0.2 mg/dl Aspartate Amino Transf (AST/SGOT) 13 15-37 U/L Alanine Aminotransferase (ALT/SGPT) 22 12-78 U/L Alkaline Phosphatase 148 45-117 U/L Total Creatine Kinase 27 26-192 U/L Creatine Kinase MB < 0.5 0.5-3.6 ng/ml Creatine Kinase MB Ratio 0-3.0 Pro-B-Type Natriuretic Peptide 311 0-900 pg/ml Total Protein 8.3 6.4-8.2 gm/dl Albumin 2.9 3.4-5.0 gm/dl Bedside Troponin I < 0.030 0-0.045 ng/ml Diagnostic Radiology CXR 06/16/2017 COMPARISON: 06/02/2017. FINDINGS: Cardiomediastinal silhouette normal. Mildly low lung volumes with hypoventilatory changes. Persistent elevation of the right hemidiaphragm. Interval development of left greater than right basilar opacities. Nodular focus at the left lateral costophrenic angle. Small left and trace right effusions may be present. No pneumothorax. Osseous structures and upper abdomen normal. IMPRESSION: 1. Interval development of left greater than right basilar opacities as well as a focal nodular opacity at the left lung base. This could represent aspiration, mild edema, or infection. 2. Small left and trace right pleural effusions suspected. (CHEST FOR PE) ANGIO WITH CONTRAST 06/16/2017 COMPARISON STUDY: 05/11/2017 FINDINGS: Mild atherosclerotic change thoracic aorta. The pulmonary arterial vasculature enhances appropriately. There are no current filling defects. Unchanging linear parenchymal density right upper lung possibly atelectatic in nature. Unchanging small right pleural effusion with right basilar atelectatic/consolidative change. Mild increase in volume of the pericardial effusion. Maximum current thickness is 9 mm. Persistent anterior mediastinal fat stranding which is similar as compared to the prior study. Interval trace pleural fluid left lung base with left basilar atelectatic change also progressive. IMPRESSION: 1. No evidence for pulmonary embolus at the current time. 2. Small emboli described previously have resolved. 3. Unchanging right pleural effusion with right basilar atelectatic change. 4. Interval small left pleural effusion with left basilar atelectasis. 5. Interval development of a 9 mm pericardial effusion. THORACIC U/S 05/29/2017 Moderate size right pleural effusion is again seen with fluid collection measuring up to 9.0 x 8.2 x 11.3 cm with volume of 441 mL No associated significant complexity or loculated component is identified. Atelectatic right lower lobe is noted on the last image. Comparison images of the left lung base were obtained which showed no significant left pleural fluid. IMPRESSION: Moderate sized right pleural effusion redemonstrated with volume of approximately 441 mL. No significant left-sided pleural fluid identified. Echo (05/2017): Normal LV size and systolic function. EF 65-70 percent. No regional wall motion abnormalities. Mild concentric LVH. Grade 1 diastolic dysfunction. Prosthetic aortic valve is well seated. Small pericardial effusion. Echo (03/2017): Normal LV size, mild LVH, EF 55-60 percent, borderline dilated RV with normal RV function. Severe (peak velocity 4.57, mean gradient 55, aortic valve area 0.67), grade 1 diastolic dysfunction Cardiac catheterization (03/2017): Left main luminal irregularities; lad 20-30 percent mid moderate 2nd diagonal 20-30 percent ostial; circumflex luminal irregularities; RCA dominant, luminal irregularities. RA 9, RV 35/11, PA 37/19 (27), PCW 15, aortic sat 92, PA sat 65, cardiac output 5.5 index 2.7 EKG EKG Normal sinus rhythm, ventricular rate 83 bpm Right bundle branch block Abnormal ECG When compared with ECG of 02-JUN-2017 09:41, No significant change was found Impression Assessment and Plan Pleurisy Dyspnea Bilateral pleural effusion right greater than left Pericardial effusion Diastolic dysfunction Anxiety Ms. Madsen has had a complicated course post AVR in April. She has had multiple admissions with complaints of chest tightness, pain, shortness of breath and orthopnea. She is afebrile with only mildly elevated WBC, making my clinical suspicion etiology low. Imaging today, shows bilateral effusions. A moderate right pleural effusion and an interval development of small effusion on the left. She does have interval increase of pericardial effusion noted on the CT scan as well. She is hemodynamically stable. Subsegmental pulmonary embolism have resolved. She has been treated for pericarditis post procedure with NSAIDs and corticosteroids. She has had some minimal improvement of her symptoms. On review of her imaging and literature review, pleural effusion on the right are most commonly seen after valvular surgery, as it in her case and often resolve spontaneously several months after. I did a bedside ultrasound of the fluid on the right and there is a small pocket fluid with atelectatic lung for possible thoracentesis. Patient and family who were at bedside, opted to take a more conservative approach at this time. They would like to continue with current management with a trial of diuretics for possible interval resolution of the pleural effusion. If her symptoms do not resolve, will consider diagnostic and therapeutic thoracentesis. Patient also has mild diastolic dysfunction as wells as hypoalbuminemia that also may be contributing to her symptoms. Continue with pain medications and incentive spirometry. Continue with supplementation oxygenation prn. I appreciate the consult and will continue to follow with you.
[2017-06-16] MEDS: IBUPROFEN 600 MG TAB PO SCH (16:47)
--- NOTE | 2017-06-16 18:56 | Cardiology Consultation ---
Cardiology Consultation Date of Consultation: Jun 16, 2017. Attending Physician: Dr. Echeverria Reason for Consultation: Chest pain, pericardial effusion History of Present Illness THIS IS A PGY1 RESIDENT NOTE ON CARDIOLOGY SERVICE. SEE OFFICIAL CONSULT BY DR. ECHEVERRIA FOR CARDIOLOGY RECOMMENDATIONS 72 yo female presented this morning to the ED with left-sided chest pain (tight) , radiating to left shoulder, "beginning" around Fri 11Aug and progressively worsening until around 5 am this morning. This morning, pt states pain is worse with lying flat and deep inspiration, somewhat improved with sitting up, not necessarily improved with leaning forward. This improved with home dose of oxycodone but has yet to fully resolve throughout this time. Also notes some SOB throughout this time, mostly with any extertion, but today slightly while at rest. She denies any fever, chills, cough, N/V (but has had multiple days of non-melanotic diarrhea), syncope, headache, palpitations, acute extremity pains (says chronic bilateral leg tenderness to palpation), known sick contacts, or other acute c/o. - Pt has a notable hx of severe aortic stenosis now s/p minimally-invasive bioprosthetic aortic valve replacement on . Pt has been seen in this interval period following valve replacement for a DVT & PE on (placed on coumadin) as well as treated with abx for presumptive HCAP. She was placed on a medrol dose pack around 01Aug for presumed pleurisy (completed course a week ago). - Workup today thus far has been notable for a CT PE protocol which showed an unchanged small right pleural effusion, a mild increase in her prior pericardial effusion, and an interval small left pleural effusion. TnI was negative. INR 1.6. - Pt has hx of cardiac cath in March 2017: Left main luminal irregularities, LAD 20-30% mid-moderate 2nd diagonal 20-30% ostial; circumflex luminal irregularities; RCA dominant, luminal irregularities. - Pt has hx of cardiac echo : Normal LVSF, no regional wall motion abnormalities noted, EF 65-70%, mild concentric LVH, grade I diastolic dysfunction. Past Medical/Surgical History PMH: In addition to the above, pt has a hx of HTN, hyperlipidemia, OA, SALVATORE, GERD and Barretts esophagus, hiatal hernia, diverticulitis, fatty liver disease , right BBB, heterozygous for prothombin gene mutation, and anxiety/depression. Pt is a [employer] and states would decline a blood transfusion. PSH: Cholecystectomy, AVR as above. Family History Diabetes mellitus FH: cancer FH: heart disease FH: lung disease Gallbladder disease Hypertension Kidney disease Kidney stones Social History Smoking Status: Never Smoker History of Alcohol Use: No Review of Systems Constitutional: + see HPI, No fever, No chills Respiratory: + shortness of breath, + dyspnea on exertion, + dyspnea at rest, No cough Cardiac: + chest pain, + orthopnea, No palpitations Abdomen: + pain (occasional mid-epigastric pain, worse with NSAIDs), + diarrhea (ongoing loose, non-bloody stools), No nausea, No vomiting Neurologic: No weakness, No numbness/tingling, No vertigo Endo: + fatigue Skin: No rash Allergies Coded Allergies: Niacin (Verified Allergy, Intermediate, RASH, 06/02/17) Atorvastatin (Verified Adverse Reaction, Mild, MUSCLE ACHES, 06/02/17) Diltiazem (Verified Adverse Reaction, Mild, HEADACHE, 06/02/17) Medications Current Inpatient Medications Medications (Trade) Dose Ordered Sig/Aurora Route Start Time Stop Time Status Last Admin Dose Admin Acetaminophen (Tylenol Tab) 650 mg Q4H PRN PO 06/16/17 13:15 07/16/17 13:14 Al Hydrox/Mg Hydrox/Simethicone (Maalox Max Susp) 15 ml Q4H PRN PO 06/16/17 13:15 07/16/17 13:14 Magnesium Hydroxide (Milk Of Magnesia Susp) 30 ml Q12H PRN PO 06/16/17 13:15 07/16/17 13:14 Ondansetron HCl (Zofran Inj) 4 mg Q6H PRN IV 06/16/17 13:15 07/16/17 13:14 06/16/17 14:43 4 MG Nitroglycerin (Nitrostat Tab) 0.4 mg UD PRN SL 06/16/17 13:15 07/16/17 13:14 Polyethylene (Miralax Powder Packet) 17 gm DAILY PRN PO 06/16/17 13:15 07/16/17 13:14 Morphine Sulfate (MoRPHine SULFATE INJ) 4 mg Q4H PRN IV 06/16/17 13:15 06/30/17 13:14 06/16/17 14:46 4 MG Aspirin (Ecotrin Tab) 81 mg QAM PO 06/17/17 09:00 07/17/17 08:59 Baclofen (Lioresal Tab) 10 mg BID PO 06/16/17 21:00 07/16/17 20:59 Carvedilol (Coreg Tab) 3.125 mg BID PO 06/16/17 21:00 07/16/17 20:59 Clonazepam (Klonopin Tab) 0.5 mg HS PO 06/16/17 21:00 07/16/17 20:59 Clonazepam (Klonopin Tab) 0.25 mg DAILY PRN PO 06/16/17 13:15 07/16/17 13:14 Colchicine (Colchicine Tab) 0.6 mg BID PO 06/16/17 21:00 07/16/17 20:59 Hydrochlorothiazide (Hydrochlorothiazide Tab) 25 mg QAM PO 06/17/17 09:00 07/17/17 08:59 Lisinopril (Zestril Tab) 20 mg QAM PO 06/17/17 09:00 07/17/17 08:59 Mirtazapine (Remeron Tab) 15 mg QPM PO 06/16/17 21:00 07/16/17 20:59 Pantoprazole Sodium (Protonix Tab) 40 mg BID PO 06/16/17 21:00 07/16/17 20:59 Ranitidine HCl (zANTac TAB) 150 mg BID PO 06/16/17 21:00 07/16/17 20:59 Rosuvastatin Calcium (Crestor Tab) 20 mg DAILY PO 06/17/17 09:00 07/17/17 08:59 Warfarin Sodium (Coumadin Tab) 5 mg DAILY@1600 PO 06/16/17 16:00 07/16/17 15:59 06/16/17 16:48 5 MG Cholecalciferol (Vitamin D Tab) 2,000 inter.unit QAM PO 06/17/17 09:00 07/17/17 08:59 Ibuprofen (Motrin Tab) 600 mg TID PO 06/16/17 14:00 07/16/17 13:59 06/16/17 16:47 600 MG Miscellaneous (Iv Fluids Completed) 1 ea PRN PRN N/A 06/16/17 14:45 06/16/18 14:44 Miconazole Nitrate (Desenex Powder) 1 appln PRN PRN EXT 06/16/17 16:00 07/16/17 15:59 06/16/17 16:48 1 APPLN Physical Exam Vital Signs Past 12 Hours Date Time Temp Pulse Resp B/P (MAP) Pulse Ox O2 Delivery O2 Flow Rate FiO2 06/16/17 16:00 93 Nasal Cannula 2.0 06/16/17 14:45 36.8 106 18 120/76 (91) 93 06/16/17 13:11 92 Nasal Cannula 2.0 06/16/17 13:01 37.0 95 24 123/77 92 Nasal Cannula 2.0 06/16/17 12:00 95 24 123/77 92 06/16/17 10:06 93 23 98 06/16/17 10:01 92 28 98 06/16/17 09:56 91 29 97 06/16/17 09:51 91 28 98 06/16/17 09:46 92 24 97 06/16/17 09:41 92 27 99 06/16/17 09:36 93 19 98 06/16/17 09:31 92 27 98 06/16/17 09:26 92 27 97 06/16/17 09:21 86 26 97 06/16/17 09:16 93 28 97 06/16/17 09:14 100 Nasal Cannula 2.0 06/16/17 09:13 97 Room Air 06/16/17 09:11 94 26 99 06/16/17 09:06 95 33 98 06/16/17 09:01 94 06/16/17 09:01 95 27 06/16/17 08:56 98 Room Air 06/16/17 08:51 137/85 06/16/17 08:51 37.0 97 37 137/85 95 Room Air Head: normocephalic, atraumatic ENMT: hearing grossly normal Neck: supple, no masses, FROM Lungs: Respiratory effort: no dyspnea Auscultation: deminished air movement, decreased breath sounds (in bilateral lower mendez), rales/crackles on the left, rales/crackles on the right Cardiovascular: Heart Auscultation: RRR, normal S1, normal S2, murmur (systolic ejection murmur) Peripheral Pulses: Bruits: none appreciated Carotid Pulse: normal on the left, normal on the right Radial Pulse: normal on the left, normal on the right Abdomen: Bowel Sounds: normal Inspection & Palpation: soft, pertinent finding (minimal epigastric ttp) Musculoskeletal: normal, normal strength (5/5 throughout) (grossly) Extremities: no edema Data Laboratory Results: Last 24 Hours Test 06/16/17 08:54 06/16/17 09:07 06/16/17 17:00 06/16/17 18:07 White Blood Count 11.21 K/uL Red Blood Count 4.33 M/uL Hemoglobin 11.6 g/dL Hematocrit 36.9 % Mean Corpuscular Volume 85.2 fL Mean Corpuscular Hemoglobin 26.8 pg Mean Corpuscular Hemoglobin Concent 31.4 g/dl Platelet Count 350 K/uL Mean Platelet Volume 10.2 fL Neutrophils (%) (Auto) 76.1 % Lymphocytes (%) (Auto) 12.4 % Monocytes (%) (Auto) 9.3 % Eosinophils (%) (Auto) 1.6 % Basophils (%) (Auto) 0.4 % Neutrophils # (Auto) 8.54 K/uL Lymphocytes # (Auto) 1.39 K/uL Monocytes # (Auto) 1.04 K/uL Eosinophils # (Auto) 0.18 K/uL Basophils # (Auto) 0.04 K/uL RDW Standard Deviation 49.1 fL RDW Coefficient of Variation 15.8 % Immature Granulocyte % (Auto) 0.2 % Immature Granulocyte # (Auto) 0.02 K/uL Prothrombin Time 17.3 SECONDS Prothromb Time International Ratio 1.6 Activated Partial Thromboplast Time 39.0 SECONDS Partial Thromboplastin Ratio 1.5 Sodium Level 137 mmol/L Potassium Level 3.5 mmol/L Chloride Level 104 mmol/L Carbon Dioxide Level 26 mmol/L Anion Gap 7.0 mmol/L Blood Urea Nitrogen 18 mg/dl Creatinine 1.10 mg/dl Est Creatinine Clear Calc Drug Dose 51.8 ml/min Estimated GFR () 58.5 Estimated GFR (Non- 50.5 BUN/Creatinine Ratio 16.1 Random Glucose 120 mg/dl Calcium Level 8.9 mg/dl Total Bilirubin 0.4 mg/dl Direct Bilirubin < 0.1 mg/dl Aspartate Amino Transf (AST/SGOT) 13 U/L Alanine Aminotransferase (ALT/SGPT) 22 U/L Alkaline Phosphatase 148 U/L Total Creatine Kinase 27 U/L Creatine Kinase MB < 0.5 ng/ml Creatine Kinase MB Ratio Pro-B-Type Natriuretic Peptide 311 pg/ml Total Protein 8.3 gm/dl Albumin 2.9 gm/dl Bedside Troponin I < 0.030 ng/ml Imaging: EKG: Telemetry reviewed: Assessment & Plan 1) Chest pain: Unknown exact etiology. Ischemia seems less likely given chronicity, normal TnI on initial eval, and no acute evidence on EKG (did show known RBBB). Pleurisy is possible given worsening effusions, though her normal BNP is reassuring against CHF. Pericardial effusion has intervally worsened on imaging. She has some minimal increase in her HR (on b-blockers) but has no JVD or hypotension to suggest tamponade. A recent hx of pericarditis (? related to her valve replacement) may be ongoing. She was on steroids briefly, so there may be a rebound effect s/p withdrawl as well. Pt is on colchicine already (thought to continue for total three months) and started on NSAIDs here , though there is concern for her GI upset and hx of Smith's. 2) Pericardial effusion: As discussed above. Ordering limited echo for further eval of extent. Also checking ESR to look for inflammatory component. 3) Bilateral pleural effusions. As discussed above. No clear source of an infection and has recently been on abx. Pulmonary also on consult, so look forward to their eval/thoughts. All of the above was discussed with Dr. Echeverria at the patient's bedside with family present. Pt and family's immediate questions addressed at that time. Cardiology will continue to follow (known pt of Dr. Fuentes). Demario Lassiter MD, PGY1 Family Medicine THIS IS A PGY1 RESIDENT NOTE ON CARDIOLOGY SERVICE. SEE OFFICIAL CONSULT BY DR. ECHEVERRIA FOR CARDIOLOGY RECOMMENDATIONS ADDENDUM BY CARDIOLOGY ATTENDING: PLEASE SEE MY NOTE. Resident Tracking Resident Involvement: Resident Care Provided Care Provided: Adult Hospital Medicine (cardiology consult)
--- NOTE | 2017-06-16 19:21 | CARDIOLOGY CONSULTATION ---
DATE OF CONSULTATION: 06/16/2017 TIME: 1815 p.m. CONSULTING PHYSICIAN: Dr. Terrazas. REASON FOR CONSULTATION: Chest pain and pericardial effusion. PRIMARY HEARING AID MECHANIC: Dr. Renzo Fuentes. HISTORY OF PRESENT ILLNESS: Ms. Madsen is a pleasant 72-year-old female with a history significant for severe aortic stenosis, status post minimally invasive bioprosthetic aortic valve replacement, mild nonobstructive CAD, hypertension, dyslipidemia, Smith's esophagus, obstructive sleep apnea, and DVT/PE, who presented to [facility] today with chest discomfort. She has had the following studies/procedures: 1. Cardiac catheterization in March 2017: Mid LAD 20%-30%. D2, 20%-30% ostial stenosis. Dominant RCA with luminal irregularities. 2. [place] [facility] [place]imally [place] aortic valve replacement with a right mini thoracotomy, #21 [employer] Int[employer] Elite pericardial valve. 3. Echo 05/28/2017: Normal LV systolic function. EF 65%-70%. Mild LVH. Type 1 diastolic dysfunction. Prosthetic aortic valve well seated. Small pericardial effusion. Since her aortic valve replacement, she has been evaluated on multiple times for a different issues. She has had postoperative anemia, but has not yet required blood transfusion, which she would refuse given the fact that she is a [employer]. She was diagnosed with PE and DVT in May of 2017 and was started on anticoagulation therapy. She has been treated for pericarditis and has been on colchicine as well as NSAIDs. She states that NSAIDs, however, had been irritating her stomach as she does have Smith's esophagus and a hiatal hernia and she would like to avoid NSAIDs going further if possible. She states that she has been having right-sided chest pain ever since her surgery; however, this has gradually improved over time. For the past several days, however, she has had left-sided chest discomfort that is pleuritic in nature. She was unable to lay in bed last night because the pain was so severe and she therefore sat in a recliner. She is not able to sit. She is not certain, however, that her pain improved while sitting in a recliner. She has had increased shortness of breath both at rest and also dyspnea with exertion as well as orthopnea over the past several days as well. She rated the pain as a 10/10 at 05:00 a.m. this morning and therefore came to the Emergency Department for further evaluation. The pain continues to persist; however, it is improved with morphine, which she did receive earlier. She denies any recent fevers, chills, erythema at her surgical site or discharge from that area. She has had diarrhea and can have 3-5 episodes a day. This has been ongoing for the past 3-4 days as well. She was treated recently with steroids as an outpatient and finished her last dose exactly 1 week ago. She is not certain if her overall chest pain was improved while on steroids. Four days ago, she took oxycodone at home due to left-sided chest discomfort, which improved her symptoms, but she believes she had more diarrhea. She has occasional edema. She does have epigastric discomfort as well as upper abdominal pain, which she has attributed to her abdominal issues. She denies melena, hematochezia, hematuria, or other bleeding. She denies nausea or vomiting. She denies syncope. No reported palpitations. REVIEW OF SYSTEMS: As above and review of systems is otherwise unremarkable or negative. PAST MEDICAL HISTORY: 1. Severe aortic stenosis, status post minimally invasive bioprosthetic aortic valve replacement as noted above on 04/11/2017. 2. Mild nonobstructive CAD noted on coronary angiography in March 2017. 3. Pericarditis. 4. Dyslipidemia. 5. Heterozygous for prothrombin gene mutation. 6. Right lower extremity DVT with PE in May of 2017. 7. Obstructive sleep apnea. 8. GERD. 9. Fatty liver disease. 10. Pleural effusion. 11. Pericardial effusion. 12. Hypertension. 13. Anemia. 14. Recurrent diarrhea. CURRENT INPATIENT MEDICATIONS: Include aspirin 81 mg daily, lisinopril 20 mg daily, HCTZ 25 mg daily, carvedilol 3.125 mg p.o. b.i.d., colchicine 0.6 mg p.o. b.i.d., Remeron 15 mg daily, Protonix 40 mg p.o. b.i.d., Zantac 150 mg p.o. b.i.d., Coumadin 5 mg daily, Lasix 20 mg IV x1, ibuprofen 600 mg p.o. t.i.d., Lovenox 141 mg subQ x1, and potassium chloride 20 mEq p.o. x1. ALLERGIES: ATORVASTATIN, DILTIAZEM, AND NIACIN. SOCIAL HISTORY: Denies tobacco or drug abuse. Rare alcohol. She lives at home with her , son, [id number], and granddaughter. Her other son is present at the bedside. Her is also present at the bedside. The patient is a Mu-ism and refuses blood products. FAMILY HISTORY: Two brothers had reported coronary artery disease and from other issues at the age of 62 and 70. PHYSICAL EXAMINATION: VITAL SIGNS: Temperature 36.8 degrees, heart rate mostly in the 90s, but one episode of 106 beats per minute, respiratory rate 18, blood pressure 120/76 mmHg, and oxygen saturation 93% on 2 liters nasal cannula. Weight 96.4 kg. GENERAL: In no acute distress. She is alert and oriented. HEENT: Anicteric sclerae. NECK: No appreciable JVD. No bruits. Normal carotid upstrokes bilaterally. CARDIAC EXAMINATION: PMI nonpalpable. There was no ventricular heave. Regular, normal S1 and S2, 1/6 systolic ejection murmur best heard at the right upper sternal border. No rubs or gallops. LUNGS: Crackles at the left base, otherwise clear. ABDOMEN: Soft and nondistended. Normoactive bowel sounds. There was tenderness in the upper quadrants and epigastric area, which she states is more of a chronic issue. No rebound tenderness. No audible bruits. EXTREMITIES: Trace left lower extremity edema. No palpable cords. No cyanosis. 2+ radial pulses bilaterally. 2+ dorsalis pedis pulses bilaterally. PSYCHIATRIC: Affect appears appropriate. ECG from today at 09:02 a.m. personally reviewed, normal sinus rhythm at 94 beats per minute, right bundle branch block. No significant change from 06/02/2017. Cardiac catheterization report and echo reports reviewed as noted above. CT scan imaging personally reviewed. Report was also reviewed. No pulmonary embolus according to radiology. Small emboli described on previous reports resolved per radiology. Right pleural effusion with right basilar atelectatic change. Intervals small left pleural effusion with left basilar atelectasis. Small pericardial effusion reported and also noted on personal evaluation. LABORATORY DATA: White blood cell count 11.21, hemoglobin 11.6, and platelets 350. Sodium 137, potassium 3.5, BUN 18, creatinine 1.1, and glucose 120. AST 13. ProBNP 311. Troponin undetectable. Albumin 2.9. INR 1.6. ASSESSMENT AND PLAN: 1. Chest pain: Her chest pain is pleuritic in nature, but does not appear to be positional for certain. Her chest pain is not consistent with ischemic heart disease given the fact she has mild nonobstructive coronary artery disease and constant chest pain for days with negative troponins and unremarkable ECG from an ischemic standpoint. Agree with colchicine. If she is able take NSAIDs and has no contraindication, would consider; however, she states that she does not tolerate NSAIDs. Recommend ESR to evaluate for inflammation. Repeat limited echocardiogram. Pulmonology has also been consulted. Her symptoms seemed to worsen a few days following steroids and therefore could be rebound from pericarditis or pleurisy. She is feeling better with morphine, but continues to have the pain. Recommend pain control as appropriate. 2. Shortness of breath: Etiology uncertain at this time. She does not appear to be hypervolemic. She does not appear to have tamponade physiology clinically at this point, as her heart rate is mostly in the 90s and she has no JVD and no hypotension. Monitor closely and if there are signs or symptoms concerning for tamponade going forward, we would recommend IV fluid bolus. I would avoid further diuresis at this time as she has been given IV diuretics, but does not appear hypervolemic and she has unremarkable ProBNP and therefore, does not appear to be in heart failure clinically or based on proBNP. Cannot rule out constrictive physiology following a cardiac procedure, which could account for dyspnea with exertion; however, she does not appear to be hypervolemic and she does report some shortness of breath at rest. Further evaluation could be done if there is no clinical improvement. 3. Aortic valve disorder, status post valve replacement: This was reported as appropriately functioning in recent echocardiogram. There are no findings on exam to suggest significant change in that regard. SBE prophylaxis is warranted in the future for dental procedures. 4. Hypertension: Blood pressure is acceptable. Can continue home medications. 5. Dyslipidemia: Continue high intensity statin therapy given mild coronary artery disease. 6. Coronary artery disease: Mild nonobstructive coronary artery disease on cardiac catheterization done within a few months. As noted above, not likely the cause of her symptoms. 7. Disposition: Cardiology will continue to follow. Dr. Fuentes is her primary nurse healthcare manager and resume her cardiology care tomorrow. Plan of care has been discussed with Dr. Terrazas of the primary hospitalist service. Thank you for allowing me to participate in care of Ms. Madsen. Sincerely,
[2017-06-16] MEDS: BACLOFEN 10 MG TAB PO SCH (21:00)
[2017-06-16] MEDS: CLONAZEPAM 0.5 MG TAB PO SCH (21:00)
[2017-06-16] MEDS: CARVEDILOL 3.125 MG TAB PO SCH (21:00)
[2017-06-16] MEDS: RANITIDINE HCL 150 MG TAB PO SCH (21:26)
[2017-06-16] MEDS: COLCHICINE 0.6 MG TAB PO SCH (21:26)
[2017-06-16] MEDS: MIRTAZAPINE TAB 15 MG TAB PO SCH (21:27)
[2017-06-16] MEDS: PANTOprazole SOD 40 MG TAB PO SCH (21:27)
[2017-06-16] MEDS ORDERED: SODIUM CHLORIDE 0.9% 500ML 500 ML IV ONE ×2 (21:30→22:45)
[2017-06-17] VITALS (10 sets, daily range): BP systolic 85–118; BP diastolic 46–73; PULSE 81–97; TEMP 36.5–36.7; O2SAT 91–96
[2017-06-17] MEDS ORDERED: MoRPHine SULFATE 4 MG/ML 1 ML CARP\\VIAL IV PRN (01:15)
[2017-06-17 07:11] LABS: HEMATOCRIT 32.8 % (37-47); MEAN CELL VOLUME 85.9 fL (80-100); MEAN CORPUSCULAR HEMOGLOBIN 26.4 pg (25-34); MEAN CORPUSCULAR HGB CONC 30.8 g/dl (32-36); MEAN PLATELET VOLUME 9.8 fL (7.4-10.4); PLATELET COUNT 308 K/uL (130-400); RED BLOOD COUNT 3.82 M/uL (4.2-5.4); WHITE BLOOD COUNT 9.88 K/uL (4.8-10.8)
[2017-06-17 07:21] LABS: INR 1.6 (0.9-1.1); PROTHROMBIN TIME (PATIENT) 17.7 SECONDS (9.0-12.0)
[2017-06-17 07:30] LABS: BLOOD UREA NITROGEN 25 mg/dl (7-18); BUN/CREATININE RATIO 11.7 (10-20); CALCIUM 8.9 mg/dl (8.5-10.1); CARBON DIOXIDE 26 mmol/L (21-32); CHLORIDE 102 mmol/L (98-107); GLUCOSE 113 mg/dl (70-99); POTASSIUM 3.5 mmol/L (3.5-5.1); SODIUM 137 mmol/L (136-145)
--- NOTE | 2017-06-17 08:50 | Cardiology Follow-Up ---
Subjective Date of Service: Jun 17, 2017. Pt evaluation today including: conversation w/ patient History of Present Illness Resident note - please see attending addendum/separate note Pt states she remains overall tired with ongoing chest discomfort, same as yesterday/ongoing, and no acute concerns. When asked about her low blood pressure overnight, she's not sure if she had any worsening CP or SOB. However around 0600 this morning she felt some increasing sharp central CP, for which she received morphine, and she says that helped. She also notes she hasn't had any loose stools since admission and thinks she hasn't voided much during this time as well. Otherwise she has no particular acute concerns. 15Au yo female presented this morning to the ED with left-sided chest pain (tight) , radiating to left shoulder, "beginning" around Fri 11Aug and progressively worsening until around 5 am this morning. This morning, pt states pain is worse with lying flat and deep inspiration, somewhat improved with sitting up, not necessarily improved with leaning forward. This improved with home dose of oxycodone but has yet to fully resolve throughout this time. Also notes some SOB throughout this time, mostly with any extertion, but today slightly while at rest. She denies any fever, chills, cough, N/V (but has had multiple days of non-melanotic diarrhea), syncope, headache, palpitations, acute extremity pains (says chronic bilateral leg tenderness to palpation), known sick contacts, or other acute c/o. - Pt has a notable hx of severe aortic stenosis now s/p minimally-invasive bioprosthetic aortic valve replacement on . Pt has been seen in this interval period following valve replacement for a DVT & PE on (placed on coumadin) as well as treated with abx for presumptive HCAP. She was placed on a medrol dose pack around Aug for presumed pleurisy (completed course a week ago). - Workup today thus far has been notable for a CT PE protocol which showed an unchanged small right pleural effusion, a mild increase in her prior pericardial effusion, and an interval small left pleural effusion. TnI was negative. INR 1.6. - Pt has hx of cardiac cath in March 2017: Left main luminal irregularities, LAD 20-30% mid-moderate 2nd diagonal 20-30% ostial; circumflex luminal irregularities; RCA dominant, luminal irregularities. - Pt has hx of cardiac echo [id number]: Normal LVSF, no regional wall motion abnormalities noted, EF 65-70%, mild concentric LVH, grade I diastolic dysfunction. Social History Smoking Status: Never Smoker History of Alcohol Use: No Review of Systems Respiratory: + shortness of breath, + dyspnea on exertion, + dyspnea at rest, No cough Cardiac: + chest pain, + orthopnea, No palpitations Medications Current Inpatient Medications Medications (Trade) Dose Ordered Sig/[place] Route Start Time Stop Time Status Last Admin Dose Admin Acetaminophen (Tylenol Tab) 650 mg Q4H PRN PO 06/16/17 13:15 07/16/17 13:14 Al Hydrox/Mg Hydrox/Simethicone (Maalox Max Susp) 15 ml Q4H PRN PO 06/16/17 13:15 07/16/17 13:14 Magnesium Hydroxide (Milk Of Magnesia Susp) 30 ml Q12H PRN PO 06/16/17 13:15 07/16/17 13:14 Ondansetron HCl (Zofran Inj) 4 mg Q6H PRN IV 06/16/17 13:15 07/16/17 13:14 06/16/17 14:43 4 MG Nitroglycerin (Nitrostat Tab) 0.4 mg UD PRN SL 06/16/17 13:15 07/16/17 13:14 Polyethylene (Miralax Powder Packet) 17 gm DAILY PRN PO 06/16/17 13:15 07/16/17 13:14 Aspirin (Ecotrin Tab) 81 mg QAM PO 06/17/17 09:00 07/17/17 08:59 Baclofen (Lioresal Tab) 10 mg BID PO 06/16/17 21:00 07/16/17 20:59 Carvedilol (Coreg Tab) 3.125 mg BID PO 06/16/17 21:00 07/16/17 20:59 Clonazepam (Klonopin Tab) 0.5 mg HS PO 06/16/17 21:00 07/16/17 20:59 Clonazepam (Klonopin Tab) 0.25 mg DAILY PRN PO 06/16/17 13:15 07/16/17 13:14 Colchicine (Colchicine Tab) 0.6 mg BID PO 06/16/17 21:00 07/16/17 20:59 06/16/17 21:26 0.6 MG Mirtazapine (Remeron Tab) 15 mg QPM PO 06/16/17 21:00 07/16/17 20:59 06/16/17 21:27 15 MG Pantoprazole Sodium (Protonix Tab) 40 mg BID PO 06/16/17 21:00 07/16/17 20:59 06/16/17 21:27 40 MG Ranitidine HCl (zANTac TAB) 150 mg BID PO 06/16/17 21:00 07/16/17 20:59 06/16/17 21:26 150 MG Rosuvastatin Calcium (Crestor Tab) 20 mg DAILY PO 06/17/17 09:00 07/17/17 08:59 Warfarin Sodium (Coumadin Tab) 5 mg DAILY@1600 PO 06/16/17 16:00 07/16/17 15:59 06/16/17 16:48 5 MG Cholecalciferol (Vitamin D Tab) 2,000 inter.unit QAM PO 06/17/17 09:00 07/17/17 08:59 Ibuprofen (Motrin Tab) 600 mg TID PO 06/16/17 14:00 07/16/17 13:59 Future Hold 06/16/17 16:47 600 MG Miscellaneous (Iv Fluids Completed) 1 ea PRN PRN N/A 06/16/17 14:45 06/16/18 14:44 Miconazole Nitrate (Desenex Powder) 1 appln PRN PRN EXT 06/16/17 16:00 07/16/17 15:59 06/16/17 16:48 1 APPLN Morphine Sulfate (MoRPHine SULFATE INJ) 3 mg Q4H PRN IV 06/17/17 01:15 06/30/17 13:14 06/17/17 06:38 3 MG Enoxaparin Sodium (Lovenox Inj) 141 mg DAILY@1400 SQ 06/17/17 14:00 07/17/17 13:59 Objective Vital Signs Past 12 Hours Date Time Temp Pulse Resp B/P (MAP) Pulse Ox O2 Delivery O2 Flow Rate FiO2 06/17/17 07:18 36.5 81 18 107/73 (84) 91 06/17/17 06:40 36.5 87 20 93/46 (62) 96 Room Air 06/17/17 04:44 36.7 82 20 104/70 (81) 92 Room Air 06/17/17 04:00 Room Air 06/17/17 00:00 Room Air 06/16/17 23:55 79 98/64 (75) 06/16/17 23:54 36.4 84 20 86/56 (66) 92 Room Air 06/16/17 22:31 80/53 (62) 06/16/17 21:15 73/53 (60) Last Recorded Weight-Kilograms: 95.000 Physical Exam Constitutional: Level of Distress: NAD Lungs: Respiratory effort: no dyspnea Auscultation: deminished air movement, decreased breath sounds (in bilateral lower mendez), rales/crackles on the left, rales/crackles on the right Cardiovascular: Heart Auscultation: RRR, normal S1, normal S2, murmur (systolic ejection murmur) Peripheral Pulses: Bruits: none appreciated Carotid Pulse: normal on the left, normal on the right Radial Pulse: normal on the left, normal on the right Extremities: no edema Data Laboratory Results: Last 24 Hours Test 06/16/17 08:54 06/16/17 09:07 06/16/17 18:07 06/17/17 00:53 White Blood Count 11.21 K/uL Red Blood Count 4.33 M/uL Hemoglobin 11.6 g/dL Hematocrit 36.9 % Mean Corpuscular Volume 85.2 fL Mean Corpuscular Hemoglobin 26.8 pg Mean Corpuscular Hemoglobin Concent 31.4 g/dl Platelet Count 350 K/uL Mean Platelet Volume 10.2 fL Neutrophils (%) (Auto) 76.1 % Lymphocytes (%) (Auto) 12.4 % Monocytes (%) (Auto) 9.3 % Eosinophils (%) (Auto) 1.6 % Basophils (%) (Auto) 0.4 % Neutrophils # (Auto) 8.54 K/uL Lymphocytes # (Auto) 1.39 K/uL Monocytes # (Auto) 1.04 K/uL Eosinophils # (Auto) 0.18 K/uL Basophils # (Auto) 0.04 K/uL RDW Standard Deviation 49.1 fL RDW Coefficient of Variation 15.8 % Immature Granulocyte % (Auto) 0.2 % Immature Granulocyte # (Auto) 0.02 K/uL Prothrombin Time 17.3 SECONDS Prothromb Time International Ratio 1.6 Activated Partial Thromboplast Time 39.0 SECONDS Partial Thromboplastin Ratio 1.5 Sodium Level 137 mmol/L Potassium Level 3.5 mmol/L Chloride Level 104 mmol/L Carbon Dioxide Level 26 mmol/L Anion Gap 7.0 mmol/L Blood Urea Nitrogen 18 mg/dl Creatinine 1.10 mg/dl Est Creatinine Clear Calc Drug Dose 51.8 ml/min Estimated GFR () 58.5 Estimated GFR (Non- 50.5 BUN/Creatinine Ratio 16.1 Random Glucose 120 mg/dl Calcium Level 8.9 mg/dl Total Bilirubin 0.4 mg/dl Direct Bilirubin < 0.1 mg/dl Aspartate Amino Transf (AST/SGOT) 13 U/L Alanine Aminotransferase (ALT/SGPT) 22 U/L Alkaline Phosphatase 148 U/L Total Creatine Kinase 27 U/L 22 U/L 19 U/L Creatine Kinase MB < 0.5 ng/ml < 0.5 ng/ml < 0.5 ng/ml Creatine Kinase MB Ratio Pro-B-Type Natriuretic Peptide 311 pg/ml Total Protein 8.3 gm/dl Albumin 2.9 gm/dl Bedside Troponin I < 0.030 ng/ml Erythrocyte Sedimentation Rate > 90 mm/hr Troponin I < 0.015 ng/ml < 0.015 ng/ml Test 06/17/17 06:42 White Blood Count 9.88 K/uL Red Blood Count 3.82 M/uL Hemoglobin 10.1 g/dL Hematocrit 32.8 % Mean Corpuscular Volume 85.9 fL Mean Corpuscular Hemoglobin 26.4 pg Mean Corpuscular Hemoglobin Concent 30.8 g/dl RDW Standard Deviation 50.8 fL RDW Coefficient of Variation 16.1 % Platelet Count 308 K/uL Mean Platelet Volume 9.8 fL Prothrombin Time 17.7 SECONDS Prothromb Time International Ratio 1.6 Sodium Level 137 mmol/L Potassium Level 3.5 mmol/L Chloride Level 102 mmol/L Carbon Dioxide Level 26 mmol/L Anion Gap 9.0 mmol/L Blood Urea Nitrogen 25 mg/dl Creatinine 2.10 mg/dl Est Creatinine Clear Calc Drug Dose 26.9 ml/min Estimated GFR () 26.8 Estimated GFR (Non- 23.1 BUN/Creatinine Ratio 11.7 Random Glucose 113 mg/dl Calcium Level 8.9 mg/dl Troponin I < 0.015 ng/ml Imaging: EKG: Telemetry reviewed: Assessment and Plan 1) Chest pain: Ongoing from admission, improved with morphine, but yet to resolve. Some transient worsening this morning, now back to baseline. Repeat EKG at that time was grossly unchanged from admit. TnI x 3 trending was negative. Source may still be pericarditis (ongoing vs acute worsening). On colchicine. NSAIDs presently on hold. Cardiac echo completed this morning, will review. 2) SOB/Pleural effusions: Also ongoing from admission. Likely had some volume shifts with the lasix, then fluid bolus overnight for hypotension (now resolved) . Diuresis is a balance between removing pleural fluid and the risk of developing a worsening pericardial effusion (tamponade). Lungs sound unchanged this morning and she remains off of supplemental oxygen with SpO2 over 92% the majority of the time. Can consider supplemental oxygen if desats less than this. Pulm following as well, noted discussion of future thoracentesis if sx worsen. 3) Aortic valve s/p replacement: No acute evidence of focal changes. 4) Hx HTN: Actually transient hypotension overnight, likely related to fluid changes with lasix and less PO intake in past 24 hours. Otherwise remains on home medications, though if elevated Cr from yesterday persists s/p rehydration would re-eval IRVING-I. 5) Dyslipidemia: On statin. 6) CAD: Known disease on cath March 2017, unlikely direct source of current CP/ SOB based on longevity of sx and evaluation in hospital thus far. 7) Disposition: Per primary team. Pending cardiology attending's evaluation this morning as well. Will discuss all the above with attending this morning. Demario Lassiter MD, PGY1 Family Medicine Dr. Fuentes Addendum: Patient seen and discussed with resident Dr. Lassiter. Agree with assessment as outlined above. Briefly, Mrs. Madsen is a 72-year-old woman well known to me with a history aortic stenosis status post minimally invasive bioprosthetic aortic valve replacement in April 2017. Her postoperative course has been complicated by small subsegmental PEs, stable pleural effusion and recurrent visits the setting of chest tightness, shortness of breath thought secondary to post pericardiotomy pericarditis. Prior therapies included colchicine, NSAIDs and most recently a Medrol Dosepak. Presently patient's chest pain is better controlled with intermittent morphine. Cardiac enzymes have been negative. She had transient hypotension to the 70s overnight following IV Lasix and this morning has acute kidney injury with creatinine 2.1. Pleural effusions again appears small on CT scan and have been reviewed by Pulmonary and plan is for conservative management. Have reviewed patient's limited echo from this a.m. and noted to have moderate size pericardial effusion apparent thrombus suggestive of hemopericardium. No clinical or echocardiographic signs of tamponade. Going forward agree with holding patient's home antihypertensives and further diuretics. Agree with holding NSAIDs in the setting of acute kidney injury. Long-term feel the patient will need prolonged NSAID taper along with colchicine for pericarditis. Avoid further steroids if possible. Agree with aggressive GI prophylaxis in the setting of her reflux/Smith's esophagus and continued opioids as needed for pain. For now would continue current Coumadin but discontinue bridging Lovenox in the setting questionable hemopericardium. Recommend repeat limited echo in 2 days. If increasing pericardial effusion or signs of tamponade in the interim would stop anticoagulation.
[2017-06-17] MEDS ORDERED: LISINOPRIL 20 MG TAB PO SCH (09:00)
[2017-06-17] MEDS ORDERED: HYDROCHLOROTHIAZIDE 25 MG TAB PO SCH (09:00)
[2017-06-17] MEDS: PANTOprazole SOD 40 MG TAB PO SCH ×2 (09:20→21:57)
[2017-06-17] MEDS: CARVEDILOL 3.125 MG TAB PO SCH (09:21)
[2017-06-17] MEDS: ASPIRIN 81 MG ECTAB PO SCH (09:21)
[2017-06-17] MEDS: ROSUVASTATIN CALCIUM 20 MG TAB PO SCH (09:28)
[2017-06-17] MEDS: COLCHICINE 0.6 MG TAB PO SCH ×2 (09:29→22:20)
[2017-06-17] MEDS: CHOLECALCIFEROL 1000 INTER.UNIT TAB PO SCH (09:29)
[2017-06-17] MEDS: BACLOFEN 10 MG TAB PO SCH ×2 (09:30→21:00)
[2017-06-17] MEDS: IBUPROFEN 600 MG TAB PO SCH (09:30)
[2017-06-17] MEDS: RANITIDINE HCL 150 MG TAB PO SCH ×2 (09:30→21:56)
--- NOTE | 2017-06-17 10:18 | Hospitalist Progress Note ---
Hospitalist Progress Note Date of Service Jun 17, 2017. Subjective Pt evaluation today including: conversation w/ patient, conversation w/ engineering consultant ([employer]) Pt was hypotensive overnight likely secondary to receiving lasix and morphine. Morphine dose lowered and was bolused overnight. BPs improved. Pt had return of her pleuritic left sided chest pain this AM at rest in bed which is now relieved with morphine. Constitutional: No fever Respiratory: + dyspnea on exertion Cardiovascular: + chest pain Abdomen: + problem reported (low appetite), No pain All Other Systems: Reviewed and Negative Objective Vital Signs Tele with NSR, some ST, and some PACs Date Time Temp Pulse Resp B/P (MAP) Pulse Ox O2 Delivery O2 Flow Rate FiO2 06/17/17 07:18 36.5 81 18 107/73 (84) 91 06/17/17 06:40 36.5 87 20 93/46 (62) 96 Room Air 06/17/17 04:44 36.7 82 20 104/70 (81) 92 Room Air 06/17/17 04:00 Room Air 06/17/17 00:00 Room Air 06/16/17 23:55 79 98/64 (75) 06/16/17 23:54 36.4 84 20 86/56 (66) 92 Room Air 06/16/17 22:31 80/53 (62) 06/16/17 21:15 73/53 (60) 06/16/17 20:00 Room Air 06/16/17 19:45 36.6 96 18 102/63 (76) 92 Room Air 06/16/17 16:00 93 Nasal Cannula 2.0 06/16/17 14:45 36.8 106 18 120/76 (91) 93 06/16/17 13:11 92 Nasal Cannula 2.0 06/16/17 13:01 37.0 95 24 123/77 92 Nasal Cannula 2.0 06/16/17 12:00 95 24 123/77 92 06/16/17 10:06 93 23 98 06/16/17 10:01 92 28 98 06/16/17 09:56 91 29 97 Physical Exam General Appearance: WD/WN, no apparent distress Eyes: normal inspection, sclerae normal ENT: hearing grossly normal Neck: trachea midline Respiratory/Chest: no respiratory distress, no accessory muscle use, + decreased breath sounds (at bases bilat) Cardiovascular: regular rate, rhythm, no edema, no murmur Abdomen: normal bowel sounds, non tender, soft Extremities: non-tender, normal inspection, no pedal edema, no calf tenderness Neurologic/Psychiatric: alert, normal mood/affect, oriented x 3 Skin: normal color, warm/dry, no rash Laboratory Results Last 24 Hours Test 06/16/17 18:07 06/17/17 00:53 06/17/17 06:42 Erythrocyte Sedimentation Rate > 90 mm/hr Total Creatine Kinase 22 U/L 19 U/L Creatine Kinase MB < 0.5 ng/ml < 0.5 ng/ml Creatine Kinase MB Ratio Troponin I < 0.015 ng/ml < 0.015 ng/ml < 0.015 ng/ml White Blood Count 9.88 K/uL Red Blood Count 3.82 M/uL Hemoglobin 10.1 g/dL Hematocrit 32.8 % Mean Corpuscular Volume 85.9 fL Mean Corpuscular Hemoglobin 26.4 pg Mean Corpuscular Hemoglobin Concent 30.8 g/dl RDW Standard Deviation 50.8 fL RDW Coefficient of Variation 16.1 % Platelet Count 308 K/uL Mean Platelet Volume 9.8 fL Prothrombin Time 17.7 SECONDS Prothromb Time International Ratio 1.6 Sodium Level 137 mmol/L Potassium Level 3.5 mmol/L Chloride Level 102 mmol/L Carbon Dioxide Level 26 mmol/L Anion Gap 9.0 mmol/L Blood Urea Nitrogen 25 mg/dl Creatinine 2.10 mg/dl Est Creatinine Clear Calc Drug Dose 26.9 ml/min Estimated GFR () 26.8 Estimated GFR (Non- 23.1 BUN/Creatinine Ratio 11.7 Random Glucose 113 mg/dl Calcium Level 8.9 mg/dl Assessment and Plan 72 y/o female with a history of bioprosthetic AVR, diastolic dysfunction, HTN, HLD, h/o DVT/PE on warfarin, anxiety and depression, GERD, Smith's esophagus, SALVATORE and insomnia who presented to the ED on 06/16 with chest pain. Pt tachycardic on arrival but afebrile and otherwise VSS and on room air. EKG shows no acute ischemic changes. CXR shows basilar opacities, L>R. CTA shows resolved emboli without any current PE, unchanged right pleural effusion, interval development of small left pleural effusion, and mild increase in size of pericardial effusion. Labs on admission showed WBC 11.21, Hgb 11.6. INR subtherapeutic at 1.6. Cardiac enzymes negative. Chest pain, pericardial effusion, recurrent/persistent pericarditis--pt started on colchicine and ibuprofen last admission in late May, then only taking the colchicine as ibuprofen caused GI upset. Completed a Medrol dose pack the week prior to this admission. Pain improved with morphine today. Discussed case with Dr. Fuentes today--> small thrombus with pericardial effusion, maybe had some bleeding with being on anticoagulation, otherwise stable. However, now with SARATH so need to hold ibuprofen temporarily. Trop neg serially. ECGs unchanged -continue telemetry -continue Morphine prn pain, restart ibuprofen when orthotic aide improves -continue colchicine bid for 90 days -Consult cardiology appreciated Bilateral pleural effusions R>L, chronic diastolic dysfunction--effusions likely secondary to recent cardiac surgery, state of inflammation, third spacing. Was given lasix 20mg IV x 1 and had hypotension and SARATH. BNP normal -no further diuresis at this time -expect effusions will resolve on own in a few months -Appreciate Pulm consult, no thoracentesis needed -Monitor daily weights, I's & O's -follow CXR periodically to ensure resolution H/o PE--stable, PE resolved on repeat CTA this admission. INR subtherapeutic at 1.6 still today, was given one dose Lovenox bridge yesterday. Discussed with Cardio, given that PEs are resolved, and possibly had bleeding in pericardial space, will not bridge any further, just allow INR to come up gradually -Increased home warfarin dose to 3 mg daily Bioprosthetic aortic valve replacement--done at [place] on 04/11/[address] Romero. -Routine follow up, ECHO showed well-functioning valve last formal ECHO HTN--with some hypotension here which is now resolved -Continue Coreg 3.125 mg PO BID -holding HCTZ 25 mg PO qd and lisinopril 20 mg PO qd for now due to SARATH HLD-stable -Continue Crestor 20 mg PO qd Anxiety and depression, insomnia-stable -Continue clonazepam 0.25 mg PO qd prn and 0.5 mg PO qhs and mirtazapine 15 mg PO qhs GERD, Smith's esophagus-worse with NSAIDs, due for surveillance EGD soon as outpt -Continue Protonix 40 mg PO BID and Zantac 150 mg PO BID -add on sucralfate 1 gm qid DVT prophylaxis -continue warfarin -PADMINI flores and NICHOLASs Dispo-remain on tele, dc to home in 1-2 days when symptoms controlled on po NSAIDs and colchicine Code Status -Level I, FULL RESUSCITATION STATUS
[2017-06-17] MEDS ORDERED: NURSING VERBAL MED ORDER ONE ×2 (11:45→14:30)
[2017-06-17] MEDS ORDERED: SODIUM CHLORIDE 0.9% 250ML 250 ML IV SCH (12:00)
[2017-06-17] MEDS: SUCRALFATE 1 GM/10 ML UDC PO SCH ×3 (12:52→21:53)
[2017-06-17] MEDS ORDERED: ENOXAPARIN 150 MG/1ML SYR SQ SCH (14:00)
[2017-06-17] MEDS ORDERED: ENOXAPARIN 1.5 MG/KG SQ SCH (14:00)
[2017-06-17] MEDS: CLONAZEPAM 0.5 MG TAB PO PRN (16:06)
[2017-06-17] MEDS: WARFARIN SOD 3 MG TAB PO SCH (16:06)
[2017-06-17] MEDS: MoRPHine SULFATE 2 MG/ML CARP IV PRN (17:59)
--- NOTE | 2017-06-17 18:32 | Pulmonology Progress Note ---
Pulmonary Progress Note Date of Service Jun 17, 2017. Attending Dr. Bergman Subjective Patient seen and examined today. Her family is visiting at bedside. She states that she hasnt received her anxiety pills and missing a little bit anxious. She still has pleuritic chest pain with deep inspiration. She had episode of hypotension overnight after administration of Lasix and morphine. Patient states that despite receiving diuretic she did not urinate much. Objective Vital signs at the last 24 hours MAXIMUM TEMPERATURE 36.7 blood pressure 85/55 to 118/65, pulse 81-97, respiratory rate 18-20% pulse ox 91-96% saturating 90% on room air. General Appearance: WD/WN, NO APPARENT DISTRESS, obese Head: NORMOCEPHALIC, ATRAUMATIC Eyes: PERRLA, NO DISCHARGE, EOMI, SCLERAE NORMAL ENT: NORMAL EAR EXAM, NORMAL NASAL EXAM, NORMAL MOUTH EXAM, NORMAL THROAT EXAM Neck: NORMAL RANGE OF MOTION, NO TENDERNESS, TRACHEA MIDLINE, NO STRIDOR, SUPPLE Respiratory: other (Decreased breath sounds at right lower lobe. Good air entry bilaterally. Pleuritic chest pain on deep inspiration b/l. No wheezes. There is a incision on right chest wall. ) Cardiovascular: REGULAR RATE/RHYTHM (f), NORMAL S1S2 Abdomen: NON TENDER, NORMAL BOWEL SOUNDS Genitourinary - Female: EXTERNAL GENITALIA NORMAL Back: NORMAL INSPECTION Upper Extremities: NO EDEMA Edema: Bilateral LE (1+) Pulses: dorsalis pedis (R) (2+), dorsalis pedis (L) Neuro: ALERT, ORIENTED x 3, NORMAL MOTOR EXAM, NORMAL SENSATION, NORMAL SPEECH Psychiatric: NORMAL AFFECT, NO SUICIDAL IDEATION, CONTRACTS FOR SAFETY Labs reviewed. Significant for creatinine of 2.10 up from 1.10. INR today is 1.6 again. Hemoglobin is 10.1 from 11.6 yesterday. Assessment & Plan Bilateral pleural effusion right greater than left Pericardial effusion Diastolic dysfunction Anxiety Acute kidney injury Ms. Madsen and her family have decided to take a more conservative approach in regards to the right pleural effusion. A trial of diuresis was attempted last night however patient did not diurese well and had episode of hypotension, which most likely persist precipitated acute kidney injury. This is most likely the cumulative effects of antihypertensive, diuretics, opiate and benzodiazepines. She is on minimal oxygen requirements and appears in no respiratory distress at this time. Cardiology is following for pericardial effusion. I would hold off on diuretics at this time. I will plan for repeat imaging tomorrow morning. Continue with pain management and incentive spirometry. Data Medications: Current Inpatient Medications Medications (Trade) Dose Ordered Sig/Aurora Route Start Time Stop Time Status Last Admin Dose Admin Acetaminophen (Tylenol Tab) 650 mg Q4H PRN PO 06/16/17 13:15 07/16/17 13:14 06/17/17 16:09 650 MG Al Hydrox/Mg Hydrox/Simethicone (Maalox Max Susp) 15 ml Q4H PRN PO 06/16/17 13:15 07/16/17 13:14 Magnesium Hydroxide (Milk Of Magnesia Susp) 30 ml Q12H PRN PO 06/16/17 13:15 07/16/17 13:14 Ondansetron HCl (Zofran Inj) 4 mg Q6H PRN IV 06/16/17 13:15 07/16/17 13:14 06/16/17 14:43 4 MG Nitroglycerin (Nitrostat Tab) 0.4 mg UD PRN SL 06/16/17 13:15 07/16/17 13:14 Polyethylene (Miralax Powder Packet) 17 gm DAILY PRN PO 06/16/17 13:15 07/16/17 13:14 Aspirin (Ecotrin Tab) 81 mg QAM PO 06/17/17 09:00 07/17/17 08:59 06/17/17 09:21 81 MG Baclofen (Lioresal Tab) 10 mg BID PO 06/16/17 21:00 07/16/17 20:59 06/17/17 09:30 10 MG Carvedilol (Coreg Tab) 3.125 mg BID PO 06/16/17 21:00 07/16/17 20:59 Future hold 06/17/17 09:21 3.125 MG Clonazepam (Klonopin Tab) 0.5 mg HS PO 06/16/17 21:00 07/16/17 20:59 Clonazepam (Klonopin Tab) 0.25 mg DAILY PRN PO 06/16/17 13:15 07/16/17 13:14 06/17/17 16:06 0.25 MG Colchicine (Colchicine Tab) 0.6 mg BID PO 06/16/17 21:00 07/16/17 20:59 06/17/17 09:29 0.6 MG Mirtazapine (Remeron Tab) 15 mg QPM PO 06/16/17 21:00 07/16/17 20:59 06/16/17 21:27 15 MG Pantoprazole Sodium (Protonix Tab) 40 mg BID PO 06/16/17 21:00 07/16/17 20:59 06/17/17 09:20 40 MG Ranitidine HCl (zANTac TAB) 150 mg BID PO 06/16/17 21:00 07/16/17 20:59 06/17/17 09:30 150 MG Rosuvastatin Calcium (Crestor Tab) 20 mg DAILY PO 06/17/17 09:00 07/17/17 08:59 06/17/17 09:28 20 MG Cholecalciferol (Vitamin D Tab) 2,000 inter.unit QAM PO 06/17/17 09:00 07/17/17 08:59 06/17/17 09:29 2,000 INTER.UNIT Ibuprofen (Motrin Tab) 600 mg TID PO 06/16/17 14:00 07/16/17 13:59 Future Hold 06/16/17 16:47 600 MG Miscellaneous (Iv Fluids Completed) 1 ea PRN PRN N/A 06/16/17 14:45 06/16/18 14:44 Miconazole Nitrate (Desenex Powder) 1 appln PRN PRN EXT 06/16/17 16:00 07/16/17 15:59 06/16/17 16:48 1 APPLN Morphine Sulfate (MoRPHine SULFATE INJ) 2 mg Q4H PRN IV 06/17/17 13:15 06/30/17 13:14 Sucralfate (Carafate Susp) 1 gm QID PO 06/17/17 13:00 07/17/17 12:59 06/17/17 16:49 1 GM Warfarin Sodium (Coumadin Tab) 3 mg DAILY@1600 PO 06/17/17 16:00 07/16/17 15:59 06/17/17 16:06 3 MG I & O: 24-Hour Column 06/18/17 08:00 Intake Total 800 ml Output Total 400 ml Balance 400 ml Vital Signs: Date Time Temp Pulse Resp B/P (MAP) Pulse Ox O2 Delivery O2 Flow Rate FiO2 06/17/17 16:00 Room Air 06/17/17 15:49 36.5 97 18 118/65 (82) 95 Room Air 06/17/17 15:17 Room Air 06/17/17 14:00 101/68 (79) 91 Room Air 06/17/17 11:26 36.6 88 18 85/55 (65) 93 Room Air 06/17/17 07:18 36.5 81 18 107/73 (84) 91 06/17/17 06:40 36.5 87 20 93/46 (62) 96 Room Air 06/17/17 04:44 36.7 82 20 104/70 (81) 92 Room Air 06/17/17 04:00 Room Air 06/17/17 00:00 Room Air 06/16/17 23:55 79 98/64 (75) 06/16/17 23:54 36.4 84 20 86/56 (66) 92 Room Air 06/16/17 22:31 80/53 (62) 06/16/17 21:15 73/53 (60) 06/16/17 20:00 Room Air 06/16/17 19:45 36.6 96 18 102/63 (76) 92 Room Air Laboratory Results: Last 24 Hours Test 06/16/17 18:07 06/17/17 00:53 06/17/17 06:42 Erythrocyte Sedimentation Rate > 90 mm/hr Total Creatine Kinase 22 U/L 19 U/L Creatine Kinase MB < 0.5 ng/ml < 0.5 ng/ml Creatine Kinase MB Ratio Troponin I < 0.015 ng/ml < 0.015 ng/ml < 0.015 ng/ml White Blood Count 9.88 K/uL Red Blood Count 3.82 M/uL Hemoglobin 10.1 g/dL Hematocrit 32.8 % Mean Corpuscular Volume 85.9 fL Mean Corpuscular Hemoglobin 26.4 pg Mean Corpuscular Hemoglobin Concent 30.8 g/dl RDW Standard Deviation 50.8 fL RDW Coefficient of Variation 16.1 % Platelet Count 308 K/uL Mean Platelet Volume 9.8 fL Prothrombin Time 17.7 SECONDS Prothromb Time International Ratio 1.6 Sodium Level 137 mmol/L Potassium Level 3.5 mmol/L Chloride Level 102 mmol/L Carbon Dioxide Level 26 mmol/L Anion Gap 9.0 mmol/L Blood Urea Nitrogen 25 mg/dl Creatinine 2.10 mg/dl Est Creatinine Clear Calc Drug Dose 26.9 ml/min Estimated GFR () 26.8 Estimated GFR (Non- 23.1 BUN/Creatinine Ratio 11.7 Random Glucose 113 mg/dl Calcium Level 8.9 mg/dl
--- NOTE | 2017-06-17 19:05 | ECHOCARDIOGRAM REPORT ---
*NOTICE TO RECEIVING [employer] This information is strictly Confidential and protected under [place] law. [place] law prohibits you from making any further disclosure of this information unless further disclosure is expressly permitted by the written consent of the person to whom it pertains or is authorized by law. A general authorization for the release of medical or other information is not sufficient for this purpose. Hospital accepts no responsibility if the information is made available to any other person, INCLUDING THE PATIENT. Interpretation Summary * Name: NEY VALDOVINOS Study Date: 06/17/2017 08:14 AM BP: 107/73 mmHg * Patient Location: .[facility]\S\N287\S\2 HR: 85 * : 1945 (M/d/yyyy) Gender: Female Height: 63 in * Age: 72 yrs Ethnicity: [place] Weight: 212 lb * Ordering Physician: Demario Lassiter. * Referring Physician: Self, Referred * Performed By: Veronica Medina RCS * * Reason For Study: EVAL OF PERICARDIAL EFFUSION * BSA: 2.0 m2 * -- Conclusions -- * 1. Normal left ventricular size and systolic function. Estimated EF 55-60%. No visualized wall motion abnormalities. Mild concentric left ventricular hypertrophy. * 2. Right ventricular hypertrophy. * 3. Small pericardial effusion with (mild to moderate sized) dense echogenic component at the RV apex. * 4. Normal estimated right ventricular systolic pressure; 26 mmHg. * 5. Limited 2D echo with limited color and spectral Doppler, as per request. * 6. Technically difficult study. * 7. Compared to prior study on 05/28/2017, pericardial effusion is not as well visualized on current study. Procedure Details * Limited views were obtained. Left Ventricle * Normal left ventricular size and systolic function. Estimated EF 55-60%. No visualized wall motion abnormalities. Mild concentric left ventricular hypertrophy. Right Ventricle * The right ventricle is grossly normal size. * Right ventricular hypertrophy. * The right ventricular systolic function is normal. Atria * The left atrial size is normal. * Right atrial size is normal. * There is no evidence of atrial septal defect, but resolution does not allow assessment for a patent foramen ovale. Mitral Valve * There is mild mitral annular calcification. * The mitral valve is not well visualized. Tricuspid Valve * The tricuspid valve is not well visualized. * There is no tricuspid stenosis. * There is mild tricuspid regurgitation. Aortic Valve * Bioprosthetic aortic valve. Pulmonic Valve * The pulmonic valve is not well visualized. Great Vessels * The aortic root is normal size. Pericardium/Pleural * Small pericardial effusion with (mild to moderate) dense echogenic component at the RV apex. Great Vessels * Normal inferior vena cava size and collapsability with sniff indicates a normal right atrial pressure of 3 mmHg MMode 2D Measurements and Calculations IVSd 1.2 cm LVIDd 4.4 cm LVIDs 3.1 cm LVPWd 1.2 cm IVS/LVPW 0.98 FS 29.3 % EDV(Teich) 88.8 ml ESV(Teich) 38.8 ml EF(Teich) 56.3 % EDV(cubed) 86.6 ml ESV(cubed) 30.6 ml EF(cubed) 64.6 % LV mass(C)d 200.4 grams LV mass(C)dI 101.1 grams/m\S\2 SV(Teich) 50.0 ml SI(Teich) 25.2 ml/m\S\2 SV(cubed) 55.9 ml SI(cubed) 28.2 ml/m\S\2 Ao root diam 3.2 cm Ao root area 7.9 cm\S\2 Doppler Measurements and Calculations TR max enriqueta 241.3 cm/sec RVSP(TR) 26.3 mmHg RAP systole 3.0 mmHg
[2017-06-17] MEDS: CLONAZEPAM 0.5 MG TAB PO SCH (21:00)
[2017-06-17] MEDS: MIRTAZAPINE TAB 15 MG TAB PO SCH (21:54)
[2017-06-18] VITALS (7 sets, daily range): BP systolic 109–132; BP diastolic 73–83; PULSE 69–99; TEMP 36.4–36.8; O2SAT 91–98
[2017-06-18] MEDS: MoRPHine SULFATE 2 MG/ML CARP IV PRN (05:54)
[2017-06-18 06:09] LABS: HEMATOCRIT 32.4 % (37-47); MEAN CELL VOLUME 83.9 fL (80-100); MEAN CORPUSCULAR HEMOGLOBIN 26.9 pg (25-34); MEAN CORPUSCULAR HGB CONC 32.1 g/dl (32-36); MEAN PLATELET VOLUME 9.8 fL (7.4-10.4); PLATELET COUNT 329 K/uL (130-400); RED BLOOD COUNT 3.86 M/uL (4.2-5.4); WHITE BLOOD COUNT 9.51 K/uL (4.8-10.8)
[2017-06-18 06:17] LABS: INR 1.8 (0.9-1.1); PROTHROMBIN TIME (PATIENT) 20.1 SECONDS (9.0-12.0)
[2017-06-18 06:53] LABS: BUN/CREATININE RATIO 16.8 (10-20); CALCIUM 8.8 mg/dl (8.5-10.1); CREATININE 1.2 mg/dl (0.60-1.20); MAGNESIUM 2.3 mg/dl (1.8-2.4); POTASSIUM 3.6 mmol/L (3.5-5.1)
--- NOTE | 2017-06-18 07:36 | Cardiology Follow-Up ---
Subjective Date of Service: Jun 18, 2017. Pt evaluation today including: conversation w/ patient History of Present Illness Resident note - please see attending addendum/separate note Found pt resting comfortably, stable/relatively unchanged chest discomfort and SOB, and no acute concerns. Says the morphine continues to help but she's unsure if the tylenol did as well. No relayed acute pt concerns. 15Au yo female presented this morning to the ED with left-sided chest pain (tight) , radiating to left shoulder, "beginning" around Fri 11Aug and progressively worsening until around 5 am this morning. This morning, pt states pain is worse with lying flat and deep inspiration, somewhat improved with sitting up, not necessarily improved with leaning forward. This improved with home dose of oxycodone but has yet to fully resolve throughout this time. Also notes some SOB throughout this time, mostly with any extertion, but today slightly while at rest. She denies any fever, chills, cough, N/V (but has had multiple days of non-melanotic diarrhea), syncope, headache, palpitations, acute extremity pains (says chronic bilateral leg tenderness to palpation), known sick contacts, or other acute c/o. - Pt has a notable hx of severe aortic stenosis now s/p minimally-invasive bioprosthetic aortic valve replacement on . Pt has been seen in this interval period following valve replacement for a DVT & PE on (placed on coumadin) as well as treated with abx for presumptive HCAP. She was placed on a medrol dose pack around 01Aug for presumed pleurisy (completed course a week ago). - Workup today thus far has been notable for a CT PE protocol which showed an unchanged small right pleural effusion, a mild increase in her prior pericardial effusion, and an interval small left pleural effusion. TnI was negative. INR 1.6. - Pt has hx of cardiac cath in March 2017: Left main luminal irregularities, LAD 20-30% mid-moderate 2nd diagonal 20-30% ostial; circumflex luminal irregularities; RCA dominant, luminal irregularities. - Pt has hx of cardiac echo [id number]: Normal LVSF, no regional wall motion abnormalities noted, EF 65-70%, mild concentric LVH, grade I diastolic dysfunction. Social History Smoking Status: Never Smoker History of Alcohol Use: No Review of Systems Respiratory: + shortness of breath, + dyspnea on exertion, + dyspnea at rest, No cough Cardiac: + chest pain, + orthopnea, No palpitations Objective Vital Signs Past 12 Hours Date Time Temp Pulse Resp B/P (MAP) Pulse Ox O2 Delivery O2 Flow Rate FiO2 06/18/17 04:00 36.7 81 20 118/77 (91) 91 Room Air 06/18/17 04:00 Room Air 06/18/17 00:00 Room Air 06/17/17 23:45 36.6 85 20 115/70 (85) 95 Room Air 06/17/17 21:14 85 98/66 (77) 06/17/17 20:00 Room Air 06/17/17 19:39 36.7 92 20 103/67 (79) 93 Room Air Last Recorded Weight-Kilograms: 95.300 Physical Exam Constitutional: Level of Distress: NAD Lungs: Respiratory effort: no dyspnea Auscultation: deminished air movement, decreased breath sounds (mostly in left lower lobe), rales/crackles on the left, rales/crackles on the right Cardiovascular: Heart Auscultation: RRR, normal S1, normal S2, murmur (systolic ejection murmur) Peripheral Pulses: Bruits: none appreciated Carotid Pulse: normal on the left, normal on the right Radial Pulse: normal on the left, normal on the right Extremities: no edema Data Laboratory Results: Last 24 Hours Test 06/18/17 05:55 White Blood Count 9.51 K/uL Red Blood Count 3.86 M/uL Hemoglobin 10.4 g/dL Hematocrit 32.4 % Mean Corpuscular Volume 83.9 fL Mean Corpuscular Hemoglobin 26.9 pg Mean Corpuscular Hemoglobin Concent 32.1 g/dl RDW Standard Deviation 48.7 fL RDW Coefficient of Variation 15.9 % Platelet Count 329 K/uL Mean Platelet Volume 9.8 fL Prothrombin Time 20.1 SECONDS Prothromb Time International Ratio 1.8 Sodium Level 137 mmol/L Potassium Level 3.6 mmol/L Chloride Level 104 mmol/L Carbon Dioxide Level 26 mmol/L Anion Gap 7.0 mmol/L Blood Urea Nitrogen 20 mg/dl Creatinine 1.20 mg/dl Est Creatinine Clear Calc Drug Dose 47.2 ml/min Estimated GFR () 52.7 Estimated GFR (Non- 45.4 BUN/Creatinine Ratio 16.8 Random Glucose 94 mg/dl Calcium Level 8.8 mg/dl Magnesium Level 2.3 mg/dl Imaging: EKG: Telemetry reviewed: Assessment and Plan 1) Chest pain: Ongoing from admission, stable, likely pericarditis. Improves with morphine, ? with tylenol. - On colchicine, goal to add back NSAIDs once Cr improves. On zantac, protonix , and now sucralfate for GI prophy (hx reflux & Smith's esophagus). - Pain management, IS use. 2) Pericardial effusion: Questionable hemopericardium on echo. - Rec'd stop lovenox as bridge. - Rec'd repeat limited echo 17Aug (2d s/p prior). 3) SOB/Pleural effusions: Also ongoing from admission, stable/unchanged SOB this morning. Inpt given lasix, fluid shifts, transient hypotension, fluid bolus. No recurrence of hypotension overnight. - Drophammer Operator's note: Planned repeat imaging (? CXR) this morning. 4) SARATH: Cr 2.1, this morning 1.2. Prior recs to hold on lasix use. 5) Aortic valve s/p replacement: No acute evidence of focal changes. 5) Hx HTN: Home meds hold due to Cr elevation. No elev BP here. 6) Dyslipidemia: On statin. 7) CAD: Known disease on cath March 2017, unlikely direct source of current CP/ SOB based on longevity of sx and evaluation in hospital thus far. 8) Disposition: Per primary team. Pending cardiology attending's evaluation this morning as well. Will discuss all the above with attending this morning. Demario Lassiter MD, PGY1 Family Medicine
--- NOTE | 2017-06-18 07:57 | DIAGNOSTIC IMAGING REPORT ---
CHEST ONE VIEW PORTABLE CLINICAL HISTORY: reevaluate pleural effusion COMPARISON STUDY: 06/16/2017 FINDINGS: The heart is the upper limits of normal in size. Small pleural effusions are suspected. There are persistent bibasilar airspace opacities atelectasis versus inflammatory..[ IMPRESSION: No significant change. Persistent small bilateral pleural effusions with bibasal airspace opacities Electronically signed by: Noel Mcintosh M.D. 06/18/2017 7:55 AM Dictated Date/Time: 06/18/2017 7:54 AM
[2017-06-18] MEDS: ASPIRIN 81 MG ECTAB PO SCH (08:55)
[2017-06-18] MEDS: COLCHICINE 0.6 MG TAB PO SCH ×2 (08:56→20:51)
[2017-06-18] MEDS: SUCRALFATE 1 GM/10 ML UDC PO SCH ×4 (08:56→20:48)
[2017-06-18] MEDS: PANTOprazole SOD 40 MG TAB PO SCH ×2 (08:56→20:54)
[2017-06-18] MEDS: ROSUVASTATIN CALCIUM 20 MG TAB PO SCH (08:56)
[2017-06-18] MEDS: RANITIDINE HCL 150 MG TAB PO SCH ×2 (08:56→20:54)
[2017-06-18] MEDS: BACLOFEN 10 MG TAB PO SCH ×2 (08:56→20:52)
[2017-06-18] MEDS: CARVEDILOL 3.125 MG TAB PO SCH ×2 (08:57→20:52)
[2017-06-18] MEDS: CHOLECALCIFEROL 1000 INTER.UNIT TAB PO SCH (08:57)
[2017-06-18] MEDS: IBUPROFEN 600 MG TAB PO SCH ×3 (08:57→20:54)
[2017-06-18] MEDS ORDERED: IBUPROFEN 600 MG TAB PO ONE (09:45)
[2017-06-18] MEDS ORDERED: NURSING VERBAL MED ORDER ONE (09:45)
[2017-06-18] MEDS: WARFARIN SOD 3 MG TAB PO SCH (15:50)
--- NOTE | 2017-06-18 18:32 | Hospitalist Progress Note ---
Hospitalist Progress Note Date of Service Jun 18, 2017. Subjective Pt evaluation today including: conversation w/ patient, conversation w/ family , physical exam Feeling much less chest pain today with restarting ibuprofen. Renal function improved. Pain currently 3-4/10, is anxious though about going home in case pain returns again. Abdomen: + diarrhea (some loose stools) All Other Systems: Reviewed and Negative Objective Vital Signs Date Time Temp Pulse Resp B/P (MAP) Pulse Ox O2 Delivery O2 Flow Rate FiO2 06/18/17 16:00 Room Air 06/18/17 15:37 36.4 85 17 122/79 (93) 95 Room Air 06/18/17 12:00 Room Air 06/18/17 11:34 36.8 93 18 109/73 (85) 96 06/18/17 08:54 99 123/78 (93) 06/18/17 08:00 Room Air 06/18/17 07:55 36.7 85 20 111/74 (86) 94 06/18/17 04:00 36.7 81 20 118/77 (91) 91 Room Air 06/18/17 04:00 Room Air 06/18/17 00:00 Room Air 06/17/17 23:45 36.6 85 20 115/70 (85) 95 Room Air 06/17/17 21:14 85 98/66 (77) 06/17/17 20:00 Room Air 06/17/17 19:39 36.7 92 20 103/67 (79) 93 Room Air Physical Exam General Appearance: WD/WN, no apparent distress Eyes: normal inspection, sclerae normal ENT: hearing grossly normal Neck: trachea midline Respiratory/Chest: no respiratory distress, no accessory muscle use, + decreased breath sounds (at bases bilat) Cardiovascular: regular rate, rhythm, no edema, no murmur Abdomen: normal bowel sounds, non tender, soft Extremities: non-tender, no pedal edema, no calf tenderness Neurologic/Psychiatric: alert, oriented x 3, + pertinent finding (anxious) Skin: normal color, warm/dry, no rash Laboratory Results Last 24 Hours Test 06/18/17 05:55 White Blood Count 9.51 K/uL Red Blood Count 3.86 M/uL Hemoglobin 10.4 g/dL Hematocrit 32.4 % Mean Corpuscular Volume 83.9 fL Mean Corpuscular Hemoglobin 26.9 pg Mean Corpuscular Hemoglobin Concent 32.1 g/dl RDW Standard Deviation 48.7 fL RDW Coefficient of Variation 15.9 % Platelet Count 329 K/uL Mean Platelet Volume 9.8 fL Prothrombin Time 20.1 SECONDS Prothromb Time International Ratio 1.8 Sodium Level 137 mmol/L Potassium Level 3.6 mmol/L Chloride Level 104 mmol/L Carbon Dioxide Level 26 mmol/L Anion Gap 7.0 mmol/L Blood Urea Nitrogen 20 mg/dl Creatinine 1.20 mg/dl Est Creatinine Clear Calc Drug Dose 47.2 ml/min Estimated GFR () 52.7 Estimated GFR (Non- 45.4 BUN/Creatinine Ratio 16.8 Random Glucose 94 mg/dl Calcium Level 8.8 mg/dl Magnesium Level 2.3 mg/dl Assessment and Plan 72 y/o female with a history of bioprosthetic AVR, diastolic dysfunction, HTN, HLD, h/o DVT/PE on warfarin, anxiety and depression, GERD, Smith's esophagus, SALVATORE and insomnia who presented to the ED on 06/16 with chest pain. Pt tachycardic on arrival but afebrile and otherwise VSS and on room air. EKG shows no acute ischemic changes. CXR shows basilar opacities, L>R. CTA shows resolved emboli without any current PE, unchanged right pleural effusion, interval development of small left pleural effusion, and mild increase in size of pericardial effusion. Labs on admission showed WBC 11.21, Hgb 11.6. INR subtherapeutic at 1.6. Cardiac enzymes negative. Chest pain, pericardial effusion, recurrent/persistent pericarditis--pt started on colchicine and ibuprofen last admission in late May, then only taking the colchicine as ibuprofen caused GI upset. Completed a Medrol dose pack the week prior to this admission. Possibly recurrent symptoms due to rebound after stopping steroids. Pain improved with restarting ibuprofen now that renal function normalized-much better. Small thrombus with pericardial effusion, maybe had some bleeding with being on anticoagulation, otherwise stable. Trop neg serially. ECGs unchanged. No significant tele events -continue telemetry -repeat ECHO in AM limited to reassess effusion and thrombus -dc Morphine due to hypotension -restarted ibuprofen now that temporary receptionist improved and continue for 2-3 weeks as tolerated -continue colchicine bid for 90 days -Consult cardiology appreciated Bilateral pleural effusions R>L, chronic diastolic dysfunction--effusions likely secondary to recent cardiac surgery, state of inflammation, third spacing. Was given lasix 20mg IV x 1 and had hypotension and SARATH. BNP normal -no further diuresis at this time -expect effusions will resolve on own in a few months -Appreciate Pulm consult, no thoracentesis needed -Monitor daily weights, I's & O's -follow CXR periodically to ensure resolution H/o PE--stable, PE resolved on repeat CTA this admission. INR subtherapeutic at 1.6 still today, was given one dose Lovenox bridge yesterday. Discussed with Cardio, given that PEs are resolved, and possibly had bleeding in pericardial space, will not bridge any further, just allow INR to come up gradually -Increased home warfarin dose to 3 mg daily -follow INR Bioprosthetic aortic valve replacement--done at [place] on 04/11/[address] Romero. -Routine follow up, ECHO showed well-functioning valve last formal ECHO HTN--with some hypotension here which is now resolved -Continue Coreg but decreased dose for now to 1.5625 mg PO BID -holding HCTZ 25 mg PO qd and lisinopril 20 mg PO qd for now due to SARATH, can restart lisinopril probably tomorrow HLD-stable -Continue Crestor 20 mg PO qd Anxiety and depression, insomnia-stable -Continue clonazepam 0.25 mg PO qd prn and 0.5 mg PO qhs and mirtazapine 15 mg PO qhs GERD, Smith's esophagus-worse with NSAIDs, due for surveillance EGD soon as outpt. Doing well so far today on ibuprofen -Continue Protonix 40 mg PO BID and Zantac 150 mg PO BID -added on sucralfate 1 gm qid DVT prophylaxis -continue warfarin -PADMINI flores and SCDs Dispo-remain on tele, dc to home in 1-2 days when symptoms controlled on po NSAIDs and colchicine and if repeat ECHO tomorrow is stable Code Status -Level I, FULL RESUSCITATION STATUS
--- NOTE | 2017-06-18 19:16 | Pulmonology Progress Note ---
Pulmonary Progress Note Date of Service Jun 18, 2017. Attending Subjective Patient seen and examined. She was out of bed to chair at the time of my examination. She states that she is feeling somewhat better. She is still having some pleuritic chest pain with deep inspiration on right side. She describes it as "chest tightness." She denies any fever, chills, or cough. Shortness has mildly improved. Objective VS reviewed. She remains off of oxygen. Her physicial examination is relatively unchanged. General Appearance: WD/WN, NO APPARENT DISTRESS, obese Head: NORMOCEPHALIC, ATRAUMATIC Eyes: PERRLA, NO DISCHARGE, EOMI, SCLERAE NORMAL ENT: NORMAL EAR EXAM, NORMAL NASAL EXAM, NORMAL MOUTH EXAM, NORMAL THROAT EXAM Neck: NORMAL RANGE OF MOTION, NO TENDERNESS, TRACHEA MIDLINE, NO STRIDOR, SUPPLE Respiratory: other (Decreased breath sounds at right lower lobe. Good air entry bilaterally. Pleuritic chest pain on deep inspiration b/l. No wheezes. There is a incision on right chest wall-healing) Cardiovascular: REGULAR RATE/RHYTHM (f), NORMAL S1S2 Abdomen: NON TENDER, NORMAL BOWEL SOUNDS Genitourinary - Female: EXTERNAL GENITALIA NORMAL Back: NORMAL INSPECTION Upper Extremities: NO EDEMA Edema: Bilateral LE (1+) Pulses: dorsalis pedis (R) (2+), dorsalis pedis (L) Neuro: ALERT, ORIENTED x 3, NORMAL MOTOR EXAM, NORMAL SENSATION, NORMAL SPEECH Psychiatric: NORMAL AFFECT, NO SUICIDAL IDEATION, CONTRACTS FOR SAFETY Labs reviewed. CXR: 06/19/2017 IMPRESSION: No significant change. Persistent small bilateral pleural effusions with bibasal airspace opacities Assessment & Plan Bilateral pleural effusion right greater than left Pericardial effusion Diastolic dysfunction Anxiety Acute kidney injury-resolved Ms. Madsen and her family have decided to take a more conservative approach in regards to the right pleural effusion. A trial of diuresis patient did not diurese well and had episode of hypotension, which most likely persist precipitated acute kidney injury. Diuretics resolved and kidney function has returned to baseline. Ibuprofen has been restarted and patient seems to be having improved pleuritic chest pain. She is on minimal oxygen requirements and appears in no respiratory distress at this time. CXR still shows persistent small bilateral effusions, however I feel that the should resolve for time.Cardiology is following for pericardial effusion. I will sign off the case at this time. Please call or reconsult me if you have any other questions or concerns. Data Medications: Current Inpatient Medications Medications (Trade) Dose Ordered Sig/[place] Route Start Time Stop Time Status Last Admin Dose Admin Acetaminophen (Tylenol Tab) 650 mg Q4H PRN PO 06/16/17 13:15 07/16/17 13:14 06/17/17 16:09 650 MG Al Hydrox/Mg Hydrox/Simethicone (Maalox Max Susp) 15 ml Q4H PRN PO 06/16/17 13:15 07/16/17 13:14 Magnesium Hydroxide (Milk Of Magnesia Susp) 30 ml Q12H PRN PO 06/16/17 13:15 07/16/17 13:14 Ondansetron HCl (Zofran Inj) 4 mg Q6H PRN IV 06/16/17 13:15 07/16/17 13:14 06/16/17 14:43 4 MG Nitroglycerin (Nitrostat Tab) 0.4 mg UD PRN SL 06/16/17 13:15 07/16/17 13:14 Polyethylene (Miralax Powder Packet) 17 gm DAILY PRN PO 06/16/17 13:15 07/16/17 13:14 Aspirin (Ecotrin Tab) 81 mg QAM PO 06/17/17 09:00 07/17/17 08:59 06/18/17 08:55 81 MG Baclofen (Lioresal Tab) 10 mg BID PO 06/16/17 21:00 07/16/17 20:59 06/18/17 08:56 10 MG Clonazepam (Klonopin Tab) 0.5 mg HS PO 06/16/17 21:00 07/16/17 20:59 Clonazepam (Klonopin Tab) 0.25 mg DAILY PRN PO 06/16/17 13:15 07/16/17 13:14 06/17/17 16:06 0.25 MG Colchicine (Colchicine Tab) 0.6 mg BID PO 06/16/17 21:00 07/16/17 20:59 06/18/17 08:56 0.6 MG Mirtazapine (Remeron Tab) 15 mg QPM PO 06/16/17 21:00 07/16/17 20:59 06/17/17 21:54 15 MG Pantoprazole Sodium (Protonix Tab) 40 mg BID PO 06/16/17 21:00 07/16/17 20:59 06/18/17 08:56 40 MG Ranitidine HCl (zANTac TAB) 150 mg BID PO 06/16/17 21:00 07/16/17 20:59 06/18/17 08:56 150 MG Rosuvastatin Calcium (Crestor Tab) 20 mg DAILY PO 06/17/17 09:00 07/17/17 08:59 06/18/17 08:56 20 MG Cholecalciferol (Vitamin D Tab) 2,000 inter.unit QAM PO 06/17/17 09:00 07/17/17 08:59 06/18/17 08:57 2,000 INTER.UNIT Ibuprofen (Motrin Tab) 600 mg TID PO 06/16/17 14:00 07/16/17 13:59 Future hold 06/18/17 14:33 600 MG Miscellaneous (Iv Fluids Completed) 1 ea PRN PRN N/A 06/16/17 14:45 06/16/18 14:44 Miconazole Nitrate (Desenex Powder) 1 appln PRN PRN EXT 06/16/17 16:00 07/16/17 15:59 06/16/17 16:48 1 APPLN Morphine Sulfate (MoRPHine SULFATE INJ) 2 mg Q4H PRN IV 06/17/17 13:15 06/30/17 13:14 06/18/17 05:54 2 MG Sucralfate (Carafate Susp) 1 gm QID PO 06/17/17 13:00 07/17/17 12:59 06/18/17 16:38 1 GM Warfarin Sodium (Coumadin Tab) 3 mg DAILY@1600 PO 06/17/17 16:00 07/16/17 15:59 06/18/17 15:50 3 MG Carvedilol (Coreg Tab) 1.5625 mg BID PO 06/18/17 09:00 07/16/17 20:59 06/18/17 08:57 1.5625 MG I & O: 24-Hour Column 06/19/17 07:59 Intake Total 515 ml Output Total 300 ml Balance 215 ml Vital Signs: Date Time Temp Pulse Resp B/P (MAP) Pulse Ox O2 Delivery O2 Flow Rate FiO2 06/18/17 16:00 Room Air 06/18/17 15:37 36.4 85 17 122/79 (93) 95 Room Air 06/18/17 12:00 Room Air 06/18/17 11:34 36.8 93 18 109/73 (85) 96 06/18/17 08:54 99 123/78 (93) 06/18/17 08:00 Room Air 06/18/17 07:55 36.7 85 20 111/74 (86) 94 06/18/17 04:00 36.7 81 20 118/77 (91) 91 Room Air 06/18/17 04:00 Room Air 06/18/17 00:00 Room Air 06/17/17 23:45 36.6 85 20 115/70 (85) 95 Room Air 06/17/17 21:14 85 98/66 (77) 06/17/17 20:00 Room Air 06/17/17 19:39 36.7 92 20 103/67 (79) 93 Room Air Laboratory Results: Last 24 Hours Test 06/18/17 05:55 White Blood Count 9.51 K/uL Red Blood Count 3.86 M/uL Hemoglobin 10.4 g/dL Hematocrit 32.4 % Mean Corpuscular Volume 83.9 fL Mean Corpuscular Hemoglobin 26.9 pg Mean Corpuscular Hemoglobin Concent 32.1 g/dl RDW Standard Deviation 48.7 fL RDW Coefficient of Variation 15.9 % Platelet Count 329 K/uL Mean Platelet Volume 9.8 fL Prothrombin Time 20.1 SECONDS Prothromb Time International Ratio 1.8 Sodium Level 137 mmol/L Potassium Level 3.6 mmol/L Chloride Level 104 mmol/L Carbon Dioxide Level 26 mmol/L Anion Gap 7.0 mmol/L Blood Urea Nitrogen 20 mg/dl Creatinine 1.20 mg/dl Est Creatinine Clear Calc Drug Dose 47.2 ml/min Estimated GFR () 52.7 Estimated GFR (Non- 45.4 BUN/Creatinine Ratio 16.8 Random Glucose 94 mg/dl Calcium Level 8.8 mg/dl Magnesium Level 2.3 mg/dl
[2017-06-18] MEDS: MIRTAZAPINE TAB 15 MG TAB PO SCH (20:53)
[2017-06-18] MEDS: CLONAZEPAM 0.5 MG TAB PO SCH (21:02)
[2017-06-19] VITALS (7 sets, daily range): BP systolic 110–138; BP diastolic 69–84; PULSE 76–86; TEMP 36.4–36.8; O2SAT 92–96
[2017-06-19 06:57] LABS: HEMATOCRIT 34.4 % (37-47); MEAN CELL VOLUME 85.6 fL (80-100); MEAN CORPUSCULAR HEMOGLOBIN 26.4 pg (25-34); MEAN CORPUSCULAR HGB CONC 30.8 g/dl (32-36); MEAN PLATELET VOLUME 9.6 fL (7.4-10.4); PLATELET COUNT 349 K/uL (130-400); RED BLOOD COUNT 4.02 M/uL (4.2-5.4); WHITE BLOOD COUNT 6.27 K/uL (4.8-10.8)
[2017-06-19 07:13] LABS: INR 1.9 (0.9-1.1); PROTHROMBIN TIME (PATIENT) 20.7 SECONDS (9.0-12.0)
--- NOTE | 2017-06-19 07:25 | Cardiology Follow-Up ---
Subjective Date of Service: Jun 19, 2017. Pt evaluation today including: conversation w/ patient, physical exam, chart review, lab review, review of studies History of Present Illness Resident note - please see attending addendum/separate note Found pt returning from bathroom, no reports of increased CP or SOB with that walking. Says she's having some loose stools again this morning, denies any abd pain. Says CP has improved (not resolved) with the ibuprofen. No c/o overnight or 24 hour events, but is still anxious about going home and having a return of worsening chest sx. Says she had her repeat echo early this morning. 15Au yo female presented this morning to the ED with left-sided chest pain (tight) , radiating to left shoulder, "beginning" around Fri 11Aug and progressively worsening until around 5 am this morning. This morning, pt states pain is worse with lying flat and deep inspiration, somewhat improved with sitting up, not necessarily improved with leaning forward. This improved with home dose of oxycodone but has yet to fully resolve throughout this time. Also notes some SOB throughout this time, mostly with any extertion, but today slightly while at rest. She denies any fever, chills, cough, N/V (but has had multiple days of non-melanotic diarrhea), syncope, headache, palpitations, acute extremity pains (says chronic bilateral leg tenderness to palpation), known sick contacts, or other acute c/o. - Pt has a notable hx of severe aortic stenosis now s/p minimally-invasive bioprosthetic aortic valve replacement on . Pt has been seen in this interval period following valve replacement for a DVT & PE on (placed on coumadin) as well as treated with abx for presumptive HCAP. She was placed on a medrol dose pack around 01Aug for presumed pleurisy (completed course a week ago). - Workup today thus far has been notable for a CT PE protocol which showed an unchanged small right pleural effusion, a mild increase in her prior pericardial effusion, and an interval small left pleural effusion. TnI was negative. INR 1.6. - Pt has hx of cardiac cath in March 2017: Left main luminal irregularities, LAD 20-30% mid-moderate 2nd diagonal 20-30% ostial; circumflex luminal irregularities; RCA dominant, luminal irregularities. - Pt has hx of cardiac echo [id number]: Normal LVSF, no regional wall motion abnormalities noted, EF 65-70%, mild concentric LVH, grade I diastolic dysfunction. Social History Smoking Status: Never Smoker History of Alcohol Use: No Review of Systems Respiratory: + shortness of breath, + dyspnea on exertion, + dyspnea at rest, No cough Cardiac: + chest pain, + orthopnea, No palpitations Objective Vital Signs Past 12 Hours Date Time Temp Pulse Resp B/P (MAP) Pulse Ox O2 Delivery O2 Flow Rate FiO2 06/19/17 04:29 36.4 76 18 117/76 (90) 95 Room Air 06/19/17 04:00 Room Air 06/19/17 00:21 36.4 76 18 110/69 (83) 96 Room Air 06/19/17 00:00 Room Air 06/18/17 21:03 36.5 84 18 120/74 (89) 94 Room Air 06/18/17 20:47 69 132/83 (99) 98 Room Air 06/18/17 20:00 Room Air Last Recorded Weight-Kilograms: 94.700 Physical Exam Constitutional: Level of Distress: NAD (but ongoing anxiousness) Lungs: Respiratory effort: no dyspnea Auscultation: deminished air movement, decreased breath sounds (in (B) lower lobes, mildly improved from prior) Cardiovascular: Heart Auscultation: RRR, normal S1, normal S2, murmur (systolic ejection murmur) Peripheral Pulses: Bruits: none appreciated Carotid Pulse: normal on the left, normal on the right Radial Pulse: normal on the left, normal on the right Extremities: edema (minimal 1+ bilateral LE edema) Data Laboratory Results: Last 24 Hours Test 06/19/17 06:45 White Blood Count 6.27 K/uL Red Blood Count 4.02 M/uL Hemoglobin 10.6 g/dL Hematocrit 34.4 % Mean Corpuscular Volume 85.6 fL Mean Corpuscular Hemoglobin 26.4 pg Mean Corpuscular Hemoglobin Concent 30.8 g/dl RDW Standard Deviation 49.4 fL RDW Coefficient of Variation 15.7 % Platelet Count 349 K/uL Mean Platelet Volume 9.6 fL Prothrombin Time 20.7 SECONDS Prothromb Time International Ratio 1.9 CXR Service Date: 06/18/17 IMPRESSION: No significant change. Persistent small bilateral pleural effusions with bibasal airspace opacities Assessment and Plan 1) Chest pain: Ongoing from admission, stable, likely pericarditis. - On colchicine, restarted NSAIDs. Pt says sx seem to have improved a bit with this latter addition. Off of morphine here. - On zantac, protonix, and sucralfate for GI prophy (hx reflux & Smith's esophagus). - Pain management, IS use. 2) Pericardial effusion: Questionable hemopericardium on echo done 15Aug. - Off lovenox as bridge. Still on coumadin, INR 1.9 this am. - Repeat limited echo done this morning, will review results with attending. 3) SOB/Pleural effusions: Also ongoing from admission, stable/unchanged SOB this morning. No recurrence of hypotension for past 48 hours. - Repeat CXR yesterday was stable. Exam also stable. Pulm notes effusions should self-resolve over few months, no further direct intervention planned. 4) SARATH: Cr 2.1, yest and today 1.2. Likely s/p single lasix dose. 5) Aortic valve s/p replacement: No acute evidence of focal changes. 5) Hx HTN: With resolving SARATH, primary team is restarting some home anti-HTN meds, lower doses initially. 6) Dyslipidemia: On statin. 7) CAD: Known disease on cath March 2017, unlikely direct source of current CP/ SOB based on longevity of sx and evaluation in hospital thus far. 8) Disposition: Per primary team. Pending cardiology attending's evaluation this morning as well. Will discuss all the above with attending this morning. Demario Lassiter MD, PGY1 Family Medicine Dr. Fuentes Addendum: Patient seen and examined. Agree with the assessment as outlined by Dr. Lassiter. Patient is feeling much better today with better controlled chest pain. Echo reviewed and effusion stable. Discussed patient's care with Dr. Terrazas and agree with discharge today. Would continue on scheduled NSAIDs and colchicine with plan for slow taper. Will try to avoid further steroids. Continue aggressive GI prophylaxis. Continue benzodiazepine for anxiety. Continue Coumadin for prior subsegmental PE and distal DVT. Follow-up with Cardiology in 1-2 weeks.
[2017-06-19 07:34] LABS: BUN/CREATININE RATIO 17.9 (10-20); CALCIUM 9.3 mg/dl (8.5-10.1); CREATININE 1.2 mg/dl (0.60-1.20); POTASSIUM 3.8 mmol/L (3.5-5.1)
[2017-06-19] MEDS: SUCRALFATE 1 GM/10 ML UDC PO SCH ×3 (07:45→17:30)
[2017-06-19] MEDS: RANITIDINE HCL 150 MG TAB PO SCH ×2 (07:45→18:18)
[2017-06-19] MEDS: IBUPROFEN 600 MG TAB PO SCH ×2 (07:45→14:21)
[2017-06-19] MEDS: ASPIRIN 81 MG ECTAB PO SCH (07:45)
[2017-06-19] MEDS: BACLOFEN 10 MG TAB PO SCH ×2 (07:45→18:20)
[2017-06-19] MEDS: CARVEDILOL 3.125 MG TAB PO SCH ×2 (07:46→18:17)
[2017-06-19] MEDS: COLCHICINE 0.6 MG TAB PO SCH ×2 (07:48→18:18)
[2017-06-19] MEDS: CHOLECALCIFEROL 1000 INTER.UNIT TAB PO SCH (07:48)
[2017-06-19] MEDS: ROSUVASTATIN CALCIUM 20 MG TAB PO SCH (07:48)
[2017-06-19] MEDS: PANTOprazole SOD 40 MG TAB PO SCH ×2 (07:49→18:19)
--- NOTE | 2017-06-19 11:20 | ECHOCARDIOGRAM REPORT ---
*NOTICE TO RECEIVING REPUBL[employer] AGENCY This information is strictly Confidential and protected under [place] law. [place] law prohibits you from making any further disclosure of this information unless further disclosure is expressly permitted by the written consent of the person to whom it pertains or is authorized by law. A general authorization for the release of medical or other information is not sufficient for this purpose. Hospital accepts no responsibility if the information is made available to any other person, INCLUDING THE PATIENT. Interpretation Summary * Name: NEY VALDOVINOS Study Date: 06/19/2017 06:21 AM BP: 117/76 mmHg * Patient Location: .[facility]\S\[id number]\S\2 HR: 76 * : 1945 (M/d/yyyy) Gender: Female Height: 63 in * Age: 72 yrs Ethnicity: [place] Weight: 210 lb * Ordering Physician: Marcelina Terrazas * Referring Physician: Self, Referred * Performed By: Rosalina Beard RDCS * * Reason For Study: follow up for effusion * BSA: 2.0 m2 * -- Conclusions -- * follow up study for effusion * Left ventricular systolic function is normal. * Small pericardial effusion with echo-dense portion which could represent thrombus. No significant change from study performed two days ago. Procedure Details * follow up study for effusion Left Ventricle * Left ventricular systolic function is normal. Right Ventricle * The right ventricle is normal in size and function. Pericardium/Pleural * Small pericardial effusion with echo-dense portion which could represent thrombus. No significant change from study performed two days ago. * There are no echocardiographic indications of cardiac tamponade. Great Vessels * Normal inferior vena cava diameter and respiratory variation suggests normal central venous pressure.
[2017-06-19] MEDS: WARFARIN SOD 3 MG TAB PO SCH (16:04)
[2017-06-19] MEDS ORDERED: MTR600 PO (16:09)
[2017-06-19] MEDS ORDERED: MCTP EXT (16:09)
[2017-06-19] MEDS ORDERED: LSN20 PO (16:09)
[2017-06-19] MEDS ORDERED: CMD3 PO (16:09)
[2017-06-19] MEDS ORDERED: CRFUDL PO (16:09)
--- NOTE | 2017-06-19 16:14 | Discharge Instructions ---
Discharge Instructions Date of Service Jun 19, 2017. Admission Reason for Admission: Chest Pains, Pericardial Effusion Discharge Discharge Diagnosis / Problem: Pericarditis,Pericardial effusion Discharge Goals Goal(s): Improve disease control, Diagnostic testing, Therapeutic intervention Activity Recommendations Activity Limitations: as noted below Exercise/Sports Limitations: as tolerated Shower/Bathe: no limitations . Instructions / Follow-Up Instructions / Follow-Up You were admitted with chest pain due to inflammation and fluid around the heart called Pericarditis. You were started on ibuprofen (Motrin) and this helped your pain. Please continue on the ibuprofen and take sucralfate four times daily to help protect your stomach while taking the ibuprofen. Please follow up with your PCP in 1 week and Cardiology in 2 weeks as scheduled for you. Please have labs drawn by the home RN in 1-2 days: PT/INR, CBC, ESR, BMP and have results sent to Dr. Barker and Dr. Gatito Fuentes. Current Hospital Diet Patient's current hospital diet: AHA Diet (Heart Healthy) Discharge Diet Recommended Diet: AHA Diet (Heart Healthy) Procedures Procedures Performed: Echocardiogram CT Chest Chest xray Pending Studies Studies pending at discharge: no Laboratory Results Last 24 Hours Test 06/19/17 06:45 White Blood Count 6.27 K/uL Red Blood Count 4.02 M/uL Hemoglobin 10.6 g/dL Hematocrit 34.4 % Mean Corpuscular Volume 85.6 fL Mean Corpuscular Hemoglobin 26.4 pg Mean Corpuscular Hemoglobin Concent 30.8 g/dl RDW Standard Deviation 49.4 fL RDW Coefficient of Variation 15.7 % Platelet Count 349 K/uL Mean Platelet Volume 9.6 fL Prothrombin Time 20.7 SECONDS Prothromb Time International Ratio 1.9 Sodium Level 141 mmol/L Potassium Level 3.8 mmol/L Chloride Level 109 mmol/L Carbon Dioxide Level 25 mmol/L Anion Gap 7.0 mmol/L Blood Urea Nitrogen 22 mg/dl Creatinine 1.20 mg/dl Est Creatinine Clear Calc Drug Dose 47.0 ml/min Estimated GFR () 52.7 Estimated GFR (Non- 45.4 BUN/Creatinine Ratio 17.9 Random Glucose 98 mg/dl Calcium Level 9.3 mg/dl Hemoglobin A1c Test 05/28/17 06:32 Range/Units Estimated Average Glucose 120 mg/dl Hemoglobin A1c 5.8 H 4.5-5.6 % Medical Emergencies . Who to Call and When: Medical Emergencies: If at any time you feel your situation is an emergency, please call 911 immediately. . Non-Emergent Contact Non-Emergency issues call your: Primary Care Provider, Sports Athletic Trainer Call Non-Emergent contact if: you have a fever, your pain is not controlled, your pain is worsening, your pain is unusual for you, your pain is concerning you, you have any medication questions . . "Provider Documentation" section prepared by Marcelina Terrazas. . VTE Core Measure Inpt VTE Proph given/why not?: Enoxaparin (Lovenox)SQ, Warfarin (Coumadin), T.E.D. Stockings, SCD's
[2017-06-19] MEDS: CLONAZEPAM 0.5 MG TAB PO PRN (18:19)
--- NOTE | 2017-06-19 23:49 | Discharge Summary ---
Discharge Summary Date of Service Jun 19, 2017. Discharge Summary Admission Date: Jun 16, 2017 at 13:54 Discharge Date: Jun 19, 2017 Discharge Disposition: Home with services Principal Diagnosis: Pericarditis,Pericardial effusion, chest pain Problems/Secondary Diagnoses: History of bioprosthetic AVR Chronic diastolic dysfunction HTN HLD H/o DVT/PE prison anticoagulation Anxiety and depression GERD Smith's esophagus SALVATORE Insomnia Bilateral pleural effusions Pericardial effusion with thrombus Immunizations: Have You Had Influenza Vaccine: Yes History of Tetanus Vaccine?: No History of Pneumococcal: Yes History of Hepatitis B Vaccine: No Procedures: ECHO Limited follow up ECHO Chest CT Chest xrays Consultations: Cardiology Pulmonology Medication Reconciliation New Medications: Ibuprofen (Ibuprofen) 600 Mg Tab 600 MG PO TID for 30 Days, #90 TAB Miconazole Nitrate (Desenex Shake Powder) 43 Appln/43 Gm Powd 1 APPLN EXT PRN PRN for Affected Skin Folds for 30 Days Sucralfate (Sucralfate) 1 Gm/10 Ml Susp 1 GM PO QID for 30 Days, #700 ML Warfarin Sod (Coumadin) 3 Mg Tab 3 MG PO DAILY@1600 for 30 Days, #30 TAB Changed Medications: Lisinopril (Lisinopril) 20 Mg Tab 10 MG PO QAM for 30 Days (Changed from: 20 MG) Continued Medications: Aspirin (Aspirin Ec) 81 Mg Tab 81 MG PO QAM Baclofen (Baclofen) 10 Mg Tab 10 MG PO BID Carvedilol (Carvedilol) 3.125 Mg Tab 3.125 MG PO BID TAKE THIS MEDICATION WITH MORNING AND EVENING MEALS Cholecalciferol (Vitamin D3) 2,000 Unit Cap 2000 INTER.UNIT PO DAILY, CAP Clonazepam (Klonopin) 0.5 Mg Tab 0.25 MG PO DAILY PRN for Anxiety/Agitation Clonazepam (Clonazepam) 0.5 Mg Tab 0.5 MG PO HS Colchicine (Colchicine) 0.6 Mg Tab 0.6 MG PO BID Mirtazapine (Remeron) 15 Mg Tab 15 MG PO QPM, TAB Pantoprazole (Pantoprazole Sodium) 40 Mg Tab 40 MG PO BID Ranitidine Hcl (Zantac) 150 Mg Tab 150 MG PO BID Rosuvastatin Calcium (Rosuvastatin Calcium) 20 Mg Tab 20 MG PO DAILY Discontinued Medications: Hydrochlorothiazide (Hydrochlorothiazide) 25 Mg Tab 25 MG PO QAM Warfarin Sodium (Warfarin Sodium) 2.5 Mg Tab 2.5 MG PO DAILY TAKE 2.5 MG EVERY DAY OR OTHERWISE DIRECTED TO TAKE BY ANTICOAGULATION CLINIC/MD Discharge Exam Pt doing much better, pain is minimal now on ibuprofen tid. Has been OOB walking and no problems with that. Is still anxious that her pain will return but gave reassurance that she has been doing great for over 48 hours now. Physical Exam Vitals reviewed, Tele with NSR General Appearance: WD/WN, no apparent distress Eyes: normal inspection, sclerae normal ENT: hearing grossly normal Neck: trachea midline Respiratory/Chest: no respiratory distress, no accessory muscle use, + decreased breath sounds (at bases bilat) Cardiovascular: regular rate, rhythm, no edema, no murmur Abdomen: normal bowel sounds, non tender, soft Extremities: non-tender, no pedal edema, no calf tenderness Neurologic/Psychiatric: alert, oriented x 3, + pertinent finding (anxious) Skin: normal color, warm/dry, no rash Review of Systems: Constitutional: No fever Eyes: No problem reported ENT: No problem reported Respiratory: No problem reported Cardiovascular: + chest pain Abdomen: No problem reported Musculoskeletal: No problem reported Genitourinary - Female: No problem reported Neurologic: No problem reported Psychiatric: + anxiety Endocrine: No problem reported Hematologic / Lymphatic: No problem reported Integumentary: No problem reported Hospital Course 72 y/o female with a history of bioprosthetic AVR, chronic diastolic dysfunction , HTN, HLD, h/o DVT/PE on warfarin, anxiety and depression, GERD, Smith's esophagus, SALVATORE and insomnia who presented to the ED on 06/16 with chest pain. Pt tachycardic on arrival but afebrile and otherwise VSS and on room air. EKG shows no acute ischemic changes. CXR shows basilar opacities, L>R. CTA shows resolved emboli without any current PE, unchanged right pleural effusion, interval development of small left pleural effusion, and mild increase in size of pericardial effusion. Labs on admission showed WBC 11.21, Hgb 11.6. INR subtherapeutic at 1.6. Cardiac enzymes negative. Chest pain, pericardial effusion, recurrent/persistent pericarditis--pt started on colchicine and ibuprofen last admission in late May, then only taking the colchicine as ibuprofen caused GI upset. Completed a Medrol dose pack the week prior to this admission. Possibly recurrent symptoms due to rebound after stopping steroids. ESR very elevated at > 90 likely secondary to pericarditis Pain significantly improved with restarting ibuprofen now that renal function normalized. No adverse GI side effects after being placed on Sucralfate Small thrombus with pericardial effusion, maybe had some bleeding with being on anticoagulation, otherwise stable. Repeat limited ECHO this admission shows stability of effusion and thrombus, not worse. Trop neg serially. ECGs unchanged. 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 Was given lasix 20mg IV x 1 and had hypotension and SARATH. BNP normal -no further diuresis at this time -expect effusions will resolve on own in a few months -Appreciate Pulm consult, no thoracentesis needed -follow CXR periodically to ensure resolution H/o PE--stable, PE resolved on repeat CTA this admission. INR subtherapeutic at 1.9 on day of discharge. Cardiology recommended against Lovenox bridge due to probable thrombus in pericardial space as evidence of bleeding. Discussed with Cardio, given that PEs are resolved, and possibly had bleeding in pericardial space, will not bridge any further, just allow INR to come up gradually -Increased home warfarin dose to 3 mg daily -follow INR in 1-2 days with home health Bioprosthetic aortic valve replacement--done at [facility] on 04/11/[address] Romero. -Routine follow up, ECHO showed well-functioning valve last formal ECHO SARATH-forging roll operator june to 2.1 after receiving IV lasix, then had hypotension from morphine and lasix. Improved with IVFs. 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 -Continue Protonix 40 mg PO BID and Zantac 150 mg PO BID -continue sucralfate 1 gm qid while on ibuprofen Total Time Spent: Greater than 30 minutes This includes examination of the patient, discharge planning, medication reconciliation, and communication with other providers. Discharge Instructions Please refer to the electronic Patient Visit Report (Discharge Instructions) for additional information. Follow-Up PCP 1 week Cardiology 2 weeks Check PT/INR, CBC, PRP, ESR in 1-2 days with home health Additional Copies To Renzo Barker M.D.; Renzo Fuentes MD
[2017-07-11] MEDS ORDERED: AMLO-110 PO (10:08)
[2017-07-11] MEDS ORDERED: ULT50X PO (10:08)
[2017-07-11] MEDS ORDERED: IBUP-1050 PO (10:08)
[2017-07-11] MEDS ORDERED: LSN40 PO (10:08)
== END 2017-06-19 18:40 | disposition home health service (06) | DRG 315 ==
LOC: C.EDB 08:42 → ENRESERV 13:51 → C.MED 13:54 → EDBEDREQ 13:56
PROVIDERS: ADMIT Family Medicine; ATTEND Family Medicine
DX: I31.3 Pericardial effusion (noninflammatory) (principal); J90 Pleural effusion, not elsewhere classified; D68.32 Hemorrhagic disorder due to extrinsic circulating anticoagulants; D68.52 Prothrombin gene mutation; N17.9 Acute kidney failure, unspecified; I95.2 Hypotension due to drugs; T40.2X5A Adverse effect of other opioids, initial encounter; T50.1X5A Adverse effect of loop [high-ceiling] diuretics, initial encounter; Y92.230 Patient room in hospital as the place of occurrence of the external cause; I31.2 Hemopericardium, not elsewhere classified; T45.515A Adverse effect of anticoagulants, initial encounter; I51.3 Intracardiac thrombosis, not elsewhere classified; R00.0 Tachycardia, unspecified; R19.7 Diarrhea, unspecified; I11.9 Hypertensive heart disease without heart failure; I25.10 Atherosclerotic heart disease of native coronary artery without angina pectoris; E78.5 Hyperlipidemia, unspecified; K21.9 Gastro-esophageal reflux disease without esophagitis; K22.70 Barrett's esophagus without dysplasia; M19.90 Unspecified osteoarthritis, unspecified site; G47.00 Insomnia, unspecified; F41.9 Anxiety disorder, unspecified; F32.9 Major depressive disorder, single episode, unspecified; Z95.3 Presence of xenogenic heart valve; Z86.718 Personal history of other venous thrombosis and embolism; Z86.711 Personal history of pulmonary embolism; Z79.01 Long term (current) use of anticoagulants; Z79.82 Long term (current) use of aspirin; Z79.899 Other long term (current) drug therapy

== ENCOUNTER 2017-07-06 07:23 | Inpatient (IN) | payer BC, OTHER ==
[2017-07-06] VITALS (8 sets, daily range): BP systolic 108–137; BP diastolic 64–86; PULSE 70–89; TEMP 36.5–37; O2SAT 93–98; Ht 160 cm; Wt 96.0 kg
[~2017-07-06] VITALS: Ht 160 cm; Wt 96.0 kg
[~2017-07-06 07:23] MED LIST changes: +CMD3 PO; +CRFUDL PO; -HYDR25TA5 PO; -IBUP-1050 PO; +KLN5X PO; +MCTP EXT; -MELA3TAB PO; +MIRT15TA PO; +MTR600 PO; -ONDA4TAB10 SL; -TRAZ50TA35 PO; -WARF-280 PO
[2017-07-06] MEDS ORDERED: ACETAMINOPHEN 500 MG TAB PO STA (07:44)
[2017-07-06] MEDS ORDERED: ONDANSETRON INJ 2 MG/ML 2 ML VIAL IV STA (07:44)
[2017-07-06] MEDS ORDERED: SODIUM CHLORIDE 0.9% 500ML 500 ML IV STA (07:49)
--- NOTE | 2017-07-06 08:13 | DIAGNOSTIC IMAGING REPORT ---
CHEST ONE VIEW PORTABLE CLINICAL HISTORY: Fever. Chest tightness. COMPARISON STUDY: Chest CT June 16, 2017 and chest radiograph June 18, 2017 FINDINGS: Elevation of the right hemidiaphragm is unchanged. There is no pneumothorax. Small bilateral pleural effusions persist. Left basilar opacity is increased. There is pleural vascular congestion without overt pulmonary edema. Enlargement of the cardiac silhouette is unchanged. IMPRESSION: 1. Persistent bilateral pleural effusions with associated bibasilar opacities. Left basilar opacity is increased since prior exam. Atelectasis is favored although consolidation could appear similar. 2. Pulmonary vascular congestion without evidence of pulmonary edema. Electronically signed by: Rikki Herrera M.D. 07/06/2017 8:12 AM Dictated Date/Time: 07/06/2017 8:10 AM
--- NOTE | 2017-07-06 08:17 | EMERGENCY ROOM VISIT NOTE ---
History First contact with patient: 07:33 Chief Complaint: ILLNESS Stated Complaint: SICK IN STOMACH,TIGHTNESS IN CHEST,LIGHTHEADED History of Present Illness The patient is a 72 year old female who presents to the Emergency Room with complaints of chest tightness and nausea. The patient states that she has had nausea for the past 2 days. She has been afraid to eat because of the nausea. She has not vomited. She reports some tightness in her chest. She took oxycodone last night with some relief of her symptoms. She reports epigastric pain. The patient has had a cough. She was recently admitted for pericarditis and placed on ibuprofen as an outpatient. She reports associated difficulty taking a deep breath. She rates her overall discomfort a 6/10. She denies any urinary symptoms or changes in bowel movements. She denies any headaches, neck pain/stiffness or sore throat. Review of Systems A complete 10 point review of systems was reviewed with the patient with pertinent positives and negatives as per history of present illness. All else were negative. Past Medical/Surgical History Medical Problems: (1) back surgery (2) Barretts esophagus (3) Chest pain (4) Endocervical polyp (5) Hypertension (6) Patellar tendonitis (7) Pericardial effusion (8) Pneumonia (9) Post-menopause bleeding (10) Weakness Surgical Problems: (1) Hx of cholecystectomy Family History Diabetes mellitus FH: cancer FH: heart disease FH: lung disease Gallbladder disease Hypertension Kidney disease Kidney stones Social History Smoking Status: Never Smoker Alcohol Use: none Drug Use: none Marital Status: Housing Status: lives with family Occupation Status: retired Current/Historical Medications Scheduled Aspirin (Aspirin Ec), 81 MG PO QAM Baclofen (Baclofen), 10 MG PO BID Carvedilol (Carvedilol), 3.125 MG PO BID Cholecalciferol (Vitamin D3), 2,000 INTER.UNIT PO DAILY Clonazepam (Clonazepam), 0.5 MG PO HS Colchicine (Colchicine), 0.6 MG PO BID Ibuprofen (Ibuprofen), 600 MG PO TID Lisinopril (Prinivil), 20 MG PO DAILY Mirtazapine (Remeron), 15 MG PO QPM Pantoprazole (Pantoprazole Sodium), 40 MG PO BID Ranitidine Hcl (Zantac), 150 MG PO BID Rosuvastatin Calcium (Rosuvastatin Calcium), 20 MG PO DAILY Sucralfate (Sucralfate), 1 GM PO QID Warfarin Sod (Novtoven), 4.5 MG PO FRIDAY Warfarin Sod (Novtoven), 6 MG PO [id number] Scheduled PRN Clonazepam (Klonopin), 0.25 MG PO DAILY PRN for Anxiety/Agitation Miconazole Nitrate (Desenex Shake Powder), 1 APPLN EXT PRN PRN for Affected Skin Folds Physical Exam Vital Signs Date Time Temp Pulse Resp B/P (MAP) Pulse Ox O2 Delivery O2 Flow Rate FiO2 07/06/17 11:03 84 16 124/79 95 Nasal Cannula 2.0 07/06/17 10:30 95 Nasal Cannula 2.0 07/06/17 09:06 37.8 85 20 129/67 95 Nasal Cannula 2.0 07/06/17 08:22 95 Nasal Cannula 2.0 07/06/17 08:18 95 28 162/91 93 Nasal Cannula 07/06/17 08:12 96 Nasal Cannula 2.0 07/06/17 07:50 100 07/06/17 07:48 38.7 07/06/17 07:45 Room Air 07/06/17 07:28 37.9 98 18 153/87 94 Room Air Physical Exam VITALS: Vitals are noted on the nurse's note and reviewed by myself. Vital signs stable. GENERAL: This is a 72-year-old female, in no acute distress, nondiaphoretic, well-developed well-nourished. SKIN: The skin was without rashes. EARS: External auditory canals clear, tympanic membranes pearly pickard without erythema or effusion bilaterally. EYES: Pupils equal round and reactive to light and accommodation. MOUTH: Mucous membranes slightly dry. NECK: Supple without nuchal rigidity. No lymphadenopathy. HEART: Regular rate and rhythm without murmurs gallops or rubs. LUNGS: Breath sounds decreased at bilateral bases with mild crackles. ABDOMEN: Soft, mild epigastric tenderness to palpation. NEURO: Patient was alert and oriented to person place and time. Medical Decision & Procedures ER Provider Diagnostic Interpretation: CHEST ONE VIEW PORTABLE CLINICAL HISTORY: Fever. Chest tightness. COMPARISON STUDY: Chest CT June 16, 2017 and chest radiograph June 18, 2017 FINDINGS: Elevation of the right hemidiaphragm is unchanged. There is no pneumothorax. Small bilateral pleural effusions persist. Left basilar opacity is increased. There is pleural vascular congestion without overt pulmonary edema. Enlargement of the cardiac silhouette is unchanged. IMPRESSION: 1. Persistent bilateral pleural effusions with associated bibasilar opacities. Left basilar opacity is increased since prior exam. Atelectasis is favored although consolidation could appear similar. 2. Pulmonary vascular congestion without evidence of pulmonary edema. Laboratory Results 07/06/17 08:00 Red Blood Count 4.10, Mean Corpuscular Volume 83.4, Mean Corpuscular Hemoglobin 26.8, Mean Corpuscular Hemoglobin Concent 32.2, Mean Platelet Volume 10.5, Neutrophils (%) (Auto) 77.3, Lymphocytes (%) (Auto) 9.4, Monocytes (%) (Auto) 11.2, Eosinophils (%) (Auto) 1.4, Basophils (%) (Auto) 0.3, Neutrophils # (Auto ) 10.25, Lymphocytes # (Auto) 1.25, Monocytes # (Auto) 1.48, Eosinophils # (Auto ) 0.18, Basophils # (Auto) 0.04 07/06/17 08:00 Test 07/06/17 08:00 07/06/17 08:14 07/06/17 08:19 White Blood Count 13.25 K/uL (4.8-10.8) Red Blood Count 4.10 M/uL (4.2-5.4) Hemoglobin 11.0 g/dL (12.0-16.0) Hematocrit 34.2 % (37-47) Mean Corpuscular Volume 83.4 fL (80-100) Mean Corpuscular Hemoglobin 26.8 pg (25-34) Mean Corpuscular Hemoglobin Concent 32.2 g/dl (32-36) Platelet Count 318 K/uL (130-400) Mean Platelet Volume 10.5 fL (7.4-10.4) Neutrophils (%) (Auto) 77.3 % Lymphocytes (%) (Auto) 9.4 % Monocytes (%) (Auto) 11.2 % Eosinophils (%) (Auto) 1.4 % Basophils (%) (Auto) 0.3 % Neutrophils # (Auto) 10.25 K/uL (1.4-6.5) Lymphocytes # (Auto) 1.25 K/uL (1.2-3.4) Monocytes # (Auto) 1.48 K/uL (0.11-0.59) Eosinophils # (Auto) 0.18 K/uL (0-0.5) Basophils # (Auto) 0.04 K/uL (0-0.2) RDW Standard Deviation 51.9 fL (36.4-46.3) RDW Coefficient of Variation 17.1 % (11.5-14.5) Immature Granulocyte % (Auto) 0.4 % Immature Granulocyte # (Auto) 0.05 K/uL (0.00-0.02) Anion Gap 10.0 mmol/L (3-11) Estimated GFR () 74.6 Estimated GFR (Non- 64.3 BUN/Creatinine Ratio 13.4 (10-20) Lactic Acid Level 0.8 mmol/L (0.4-2.0) Calcium Level 9.2 mg/dl (8.5-10.1) Magnesium Level 2.0 mg/dl (1.8-2.4) Total Bilirubin 0.5 mg/dl (0.2-1) Aspartate Amino Transf (AST/SGOT) 17 U/L (15-37) Alanine Aminotransferase (ALT/SGPT) 16 U/L (12-78) Alkaline Phosphatase 143 U/L (45-117) Troponin I < 0.015 ng/ml (0-0.045) Total Protein 8.0 gm/dl (6.4-8.2) Albumin 2.9 gm/dl (3.4-5.0) Globulin 5.1 gm/dl (2.5-4.0) Albumin/Globulin Ratio 0.6 (0.9-2) Urine Color DK YELLOW Urine Appearance CLEAR (CLEAR) Urine pH 5.5 (4.5-7.5) Urine Specific [place] 1.023 (1.000-1.030) Urine Protein 1+ (NEG) Urine Glucose (UA) NEG (NEG) Urine Ketones TRACE (NEG) Urine Occult Blood 2+ (NEG) Urine Nitrite NEG (NEG) Urine Bilirubin NEG (NEG) Urine Urobilinogen NEG (NEG) Urine Leukocyte Esterase TRACE (NEG) Urine WBC (Auto) 1-5 /hpf (0-5) Urine RBC (Auto) 10-30 /hpf (0-4) Urine Hyaline Casts (Auto) 5-10 /lpf (0-5) Urine Epithelial Cells (Auto) >30 /lpf (0-5) Urine Bacteria (Auto) NEG (NEG) Influenza Type A Antigen Neg for Influ A (NEG) Influenza Type B Antigen Neg for Influ B (NEG) Medications Administered Medications (Trade) Dose Ordered Sig/[place] Route Start Time Stop Time Status Last Admin Dose Admin Acetaminophen (Tylenol Tab) 1,000 mg NOW STAT PO 07/06/17 07:44 07/06/17 07:47 DC 07/06/17 07:56 1,000 MG Ondansetron HCl (Zofran Inj) 4 mg NOW STAT IV 07/06/17 07:44 07/06/17 07:47 DC 07/06/17 07:57 4 MG Sodium Chloride 500 ml @ 999 mls/hr Q31M STAT IV 07/06/17 07:49 07/06/17 08:19 DC 07/06/17 07:57 999 MLS/HR Vancomycin HCl 1720 mg/Sodium Chloride 534.4 ml @ 200 mls/hr ONE STAT IV 07/06/17 09:50 07/06/17 12:30 DC 07/06/17 11:15 200 MLS/HR Piperacillin Sod/ Tazobactam Sod (Zosyn Iv) 4.5 gm NOW STAT IV 07/06/17 09:50 07/06/17 09:57 DC 07/06/17 10:48 4.5 GM ED Course The patient was evaluated as above. Labs were drawn and IV access was obtained. Patient was reevaluated and findings were discussed. Zosyn and vancomycin were ordered. Case was discussed with the [facility] hospitalist, Dr. Masters. They agreed to evaluate the patient for admission. I discussed the case with Dr. Fink of [facility] cardiology. He will perform an echocardiogram today. Medical Decision Differential diagnosis includes pneumonia, pleural effusion, influenza, pericardial effusion, acute coronary syndrome, among others. The patient is a 72-year-old female who presents today complaining of shortness of breath. Patient was noted to be febrile on arrival. Labs revealed a leukocytosis of 13,000. Blood cultures were obtained. Lactic acid was not elevated. Urinalysis was not suggestive of infection. Patient does have some epigastric pain, though this is likely student her chronic anti-inflammatory use. Chest x-ray was suggestive of pneumonia. Patient was given Zosyn and vancomycin given her recent hospitalization. The [facility] hospitalist group was consulted and agreed to evaluate the patient for admission. The patient was independently evaluated by Dr. Soliz, ED attending physician , who agreed with my assessment and treatment plan. Medication Reconcilliation Current Medication List: was personally reviewed by me Blood Pressure Screening Patient's blood pressure: Elevated blood pressure Blood pressure disposition: Elevated BP felt to be situational Impression Primary Impression: Pneumonia Departure Information Referrals Renzo Barker M.D. (PCP) Patient Instructions My [facility] Problem Qualifiers Primary Impression: Pneumonia
[2017-07-06 08:29] LABS: URINE APPEARANCE CLEAR (CLEAR); URINE COLOR DK YELLOW; URINE EPITHELIAL CELL AUTO >30 /lpf (0-5); URINE NITRITE NEG (NEG); URINE PH 5.5 (4.5-7.5); URINE SPECIFIC GRAVITY 1.023 (1.000-1.030); UROBILINOGEN NEG (NEG); ZZUR CULT IF INDIC CLEAN CATCH NO
[2017-07-06 08:30] LABS: BASO % 0.3 %; BASO ABS # 0.04 K/uL (0-0.2); COMPLETE YES; EOS % 1.4 %; HEMATOCRIT 34.2 % (37-47); IG% 0.4 %; LYMPH % 9.4 %; LYMPH ABS # 1.25 K/uL (1.2-3.4); MEAN CELL VOLUME 83.4 fL (80-100); MEAN CORPUSCULAR HEMOGLOBIN 26.8 pg (25-34); MEAN CORPUSCULAR HGB CONC 32.2 g/dl (32-36); MEAN PLATELET VOLUME 10.5 fL (7.4-10.4); MONO % 11.2 %; NEUT % 77.3 %; PLATELET COUNT 318 K/uL (130-400); WHITE BLOOD COUNT 13.25 K/uL (4.8-10.8)
[2017-07-06 08:30] LABS: MANUAL MICROSCOPIC REQUIRED? NO; REVIEW REQ? NO
[2017-07-06 08:31] LABS: URINE BILIRUBIN NEG (NEG)
[2017-07-06 08:38] LABS: ALT/SGPT 16 U/L (12-78); BLOOD UREA NITROGEN 12 mg/dl (7-18); BUN/CREATININE RATIO 13.4 (10-20); CALCIUM 9.2 mg/dl (8.5-10.1); CARBON DIOXIDE 24 mmol/L (21-32); CHLORIDE 108 mmol/L (98-107); GLUCOSE 111 mg/dl (70-99); POTASSIUM 3.3 mmol/L (3.5-5.1); SODIUM 142 mmol/L (136-145)
[2017-07-06] MEDS ORDERED: WARF6TAB5 PO (08:40)
[2017-07-06] MEDS ORDERED: WARF2TAB8 PO (08:40)
[2017-07-06] MEDS ORDERED: LISI20TA3 PO (08:40)
[2017-07-06 08:43] LABS: ALB/GLOB RATIO 0.6 (0.9-2); ALKALINE PHOSPHATASE 143 U/L (45-117); AST/SGOT 17 U/L (15-37)
[2017-07-06] MEDS ORDERED: SODIUM CHLORIDE 0.9% IV STA (09:50)
[2017-07-06] MEDS ORDERED: VANCOMYCIN IV STA (09:50)
[2017-07-06] MEDS ORDERED: PIPERACILLIN/TAZOBACTAM 4.5 GM/100ML D5W IV STA (09:50)
[2017-07-06] MEDS ORDERED: MICONAZOLE NITRATE POWDER 43 GM EXT PRN (12:00)
[2017-07-06] MEDS ORDERED: CLONAZEPAM 0.5 MG TAB PO PRN (12:00)
[2017-07-06] MEDS ORDERED: WARFARIN SOD 2 MG TAB PO SCH (12:00)
[2017-07-06] MEDS ORDERED: ACETAMINOPHEN 325 MG TAB PO PRN (12:00)
[2017-07-06] MEDS ORDERED: NITROGLYCERIN 0.4 MG SL PER TAB CHARGE SL PRN (12:00)
--- NOTE | 2017-07-06 13:17 | ECHOCARDIOGRAM REPORT ---
*NOTICE TO RECEIVING DEMOCRAT AGENCY This information is strictly Confidential and protected under [place] law. [place] law prohibits you from making any further disclosure of this information unless further disclosure is expressly permitted by the written consent of the person to whom it pertains or is authorized by law. A general authorization for the release of medical or other information is not sufficient for this purpose. Hospital accepts no responsibility if the information is made available to any other person, INCLUDING THE PATIENT. Interpretation Summary * Name: NEY VALDOVINOS Study Date: 07/06/2017 11:16 AM BP: 124/79 mmHg * Patient Location: ED-B2 HR: 84 * : 1945 (M/d/yyyy) Gender: Female Height: 63 in * Age: 72 yrs Ethnicity: CA Weight: 189 lb * Ordering Physician: Cheryl Waters * Performed By: Tabatha Foster * * Reason For Study: PERICARDIAL EFFUSION ON LAST ECHO * BSA: 1.9 m2 * -- Conclusions -- * The study was technically difficult. * Left ventricular systolic function is normal. * No regional wall motion abnormalities noted. * Ejection Fraction = 60-65%. * There is mild concentric left ventricular hypertrophy. * There is mild right ventricular hypertrophy. * There is pericardial thickening and/or a small pericardial effusion. Procedure Details * The study was technically difficult. Left Ventricle * The left ventricle is grossly normal size. * There is mild concentric left ventricular hypertrophy. * Left ventricular systolic function is normal. * Ejection Fraction = 60-65%. * No regional wall motion abnormalities noted. Right Ventricle * The right ventricle is grossly normal size. * There is mild right ventricular hypertrophy. * The right ventricular systolic function is normal. Atria * The left atrium is mildly dilated. * Right atrium not well visualized. * There is no evidence of atrial septal defect, but resolution does not allow assessment for a patent foramen ovale. Mitral Valve * The mitral valve is not well visualized. * There is moderate to severe mitral annular calcification. Tricuspid Valve * The tricuspid valve is not well visualized. Aortic Valve * The prosthetic aortic valve is well-seated. Pulmonic Valve * The pulmonary valve is not well seen, but the Doppler examination is normal without significant regurgitation or stenosis. Great Vessels * The aortic root is normal size. Pericardium/Pleural * There is pericardial thickening and/or a small pericardial effusion.
[2017-07-06] MEDS: LEVALBUTEROL 1.25MG/0.5ML NEB INH SCH ×2 (13:39→18:41)
[2017-07-06] MEDS: IPRATROPIUM BROMIDE NEB SOLN 0.02% 2.5 ML VIAL INH SCH ×2 (13:39→18:41)
--- NOTE | 2017-07-06 14:12 | History and Physical ---
History & Physical Date & Time of Service: Jul 06, 2017 at 13:54 Chief Complaint: Pericardial Effusion, Pneumonia Primary Care Physician: Renzo Barker M.D. History of Present Illness Source: patient, spouse The patient is a 72-year-old female most recently in this hospital from June 16 through June 19 for diagnosis and treatment of pericardial effusion with thrombus, who presents to the emergency department with 2 days of chest tightness across the lower left chest area and toward her side, epigastric area pain, nausea without vomiting, and a cough. Her symptoms are especially worsened when she tries to take a deep breath. She has not had any recent travels or sick exposures. Past Medical/Surgical History Medical Problems: (1) back surgery Status: Resolved (2) Barretts esophagus Status: Chronic (3) Hypertension Status: Chronic (4) Patellar tendonitis Status: Chronic Surgical Problems: (1) Hx of cholecystectomy Status: Resolved Family History Diabetes mellitus FH: cancer FH: heart disease FH: lung disease Gallbladder disease Hypertension Kidney disease Kidney stones Social History Smoking Status: Never Smoker Smokeless Tobacco Use: No Alcohol Use: none Drug Use: none Marital Status: Housing status: lives with significant other Occupational Status: retired Immunizations History of Influenza Vaccine: Yes History of Tetanus Vaccine?: No History of Pneumococcal: Yes History of Hepatitis B Vaccine: No Multi-Drug Resistant Organisms History of MDRO: No Allergies Coded Allergies: Niacin (Verified Allergy, Intermediate, RASH, 06/02/17) Atorvastatin (Verified Adverse Reaction, Mild, MUSCLE ACHES, 06/02/17) Diltiazem (Verified Adverse Reaction, Mild, HEADACHE, 06/02/17) Home Medications Scheduled Aspirin (Aspirin Ec), 81 MG PO QAM Baclofen (Baclofen), 10 MG PO BID Carvedilol (Carvedilol), 3.125 MG PO BID Cholecalciferol (Vitamin D3), 2,000 INTER.UNIT PO DAILY Clonazepam (Clonazepam), 0.5 MG PO HS Colchicine (Colchicine), 0.6 MG PO BID Ibuprofen (Ibuprofen), 600 MG PO TID Lisinopril (Prinivil), 20 MG PO DAILY Mirtazapine (Remeron), 15 MG PO QPM Pantoprazole (Pantoprazole Sodium), 40 MG PO BID Ranitidine Hcl (Zantac), 150 MG PO BID Rosuvastatin Calcium (Rosuvastatin Calcium), 20 MG PO DAILY Sucralfate (Sucralfate), 1 GM PO QID Warfarin Sod (), 4.5 MG PO FRIDAY Warfarin Sod (), 6 MG PO 6XWK Scheduled PRN Clonazepam (Klonopin), 0.25 MG PO DAILY PRN for Anxiety/Agitation Miconazole Nitrate (Desenex Shake Powder), 1 APPLN EXT PRN PRN for Affected Skin Folds Review of Systems The patient denies palpitations, vision change, hearing change, sore throat, fevers, chills, sweats, nausea, vomiting, diarrhea or constipation, pelvic pain , blood in urine or stool, dysuria, urinary frequency or urgency, lightheadedness, dizziness, headache, memory loss, rash, abnormal bruising or bleeding, imbalance, focal or generalized weakness, numbness or tingling in arms or legs, generalized arthralgias or myalgias, neck pain, night sweats. The review of systems is otherwise negative other than for that already noted above, and at least 10 systems have been reviewed. Physical Exam Vital Signs Date Time Temp Pulse Resp B/P (MAP) Pulse Ox O2 Delivery O2 Flow Rate FiO2 07/06/17 13:41 81 16 95 Nasal Cannula 2.0 07/06/17 13:33 37.0 83 26 137/72 (93) 97 Nasal Cannula 2.0 07/06/17 12:38 96 Nasal Cannula 2.0 07/06/17 12:34 83 16 141/75 93 Room Air 07/06/17 11:03 84 16 124/79 95 Nasal Cannula 2.0 07/06/17 10:30 95 Nasal Cannula 2.0 07/06/17 09:06 37.8 85 20 129/67 95 Nasal Cannula 2.0 07/06/17 08:22 95 Nasal Cannula 2.0 07/06/17 08:18 95 28 162/91 93 Nasal Cannula 07/06/17 08:12 96 Nasal Cannula 2.0 07/06/17 07:50 100 07/06/17 07:48 38.7 07/06/17 07:45 Room Air 07/06/17 07:28 37.9 98 18 153/87 94 Room Air The patient is awake, well-developed and adequately nourished, alert and oriented 3, normocephalic and atraumatic, lying in bed and in mild distress. HEENT--PERRL, EOMI, mucous membranes and oropharynx dry. Neck--supple, no JVD or bruits, thyroid normal, trachea midline, no adenopathy. Heart--normal S1 and S2, no extra beats, no murmurs, rubs or gallops. Lungs--crackles at the bases, left worse than right, mild respiratory distress when asked to breathe deeply, no accessory muscle use. Abdomen--normal bowel sounds and soft, nontender and nondistended, no hernias or masses, no organomegaly, and obese. Extremities--no cyanosis, clubbing. There is bilaterally pretibial 1+ pitting Edema. There are good distal pulses b/l. Dermatologic--normal skin turgor, normal color, warm and dry, no abnormal lymph nodes, no rash. Neurologic--cranial nerves II through XII grossly intact. Rheumatologic--normal range of motion but limited by body habitus. Psychiatric--normal affect. Diagnostics Laboratory Results Results Past 24 Hours Test 07/06/17 08:00 07/06/17 08:14 07/06/17 08:19 Range/Units White Blood Count 13.25 4.8-10.8 K/uL Red Blood Count 4.10 4.2-5.4 M/uL Hemoglobin 11.0 12.0-16.0 g/dL Hematocrit 34.2 37-47 % Mean Corpuscular Volume 83.4 80-100 fL Mean Corpuscular Hemoglobin 26.8 25-34 pg Mean Corpuscular Hemoglobin Concent 32.2 32-36 g/dl Platelet Count 318 130-400 K/uL Mean Platelet Volume 10.5 7.4-10.4 fL Neutrophils (%) (Auto) 77.3 % Lymphocytes (%) (Auto) 9.4 % Monocytes (%) (Auto) 11.2 % Eosinophils (%) (Auto) 1.4 % Basophils (%) (Auto) 0.3 % Neutrophils # (Auto) 10.25 1.4-6.5 K/uL Lymphocytes # (Auto) 1.25 1.2-3.4 K/uL Monocytes # (Auto) 1.48 0.11-0.59 K/uL Eosinophils # (Auto) 0.18 0-0.5 K/uL Basophils # (Auto) 0.04 0-0.2 K/uL RDW Standard Deviation 51.9 36.4-46.3 fL RDW Coefficient of Variation 17.1 11.5-14.5 % Immature Granulocyte % (Auto) 0.4 % Immature Granulocyte # (Auto) 0.05 0.00-0.02 K/uL Sodium Level 142 136-145 mmol/L Potassium Level 3.3 3.5-5.1 mmol/L Chloride Level 108 98-107 mmol/L Carbon Dioxide Level 24 21-32 mmol/L Anion Gap 10.0 3-11 mmol/L Blood Urea Nitrogen 12 7-18 mg/dl Creatinine 0.90 0.60-1.20 mg/dl Estimated GFR () 74.6 Estimated GFR (Non- 64.3 BUN/Creatinine Ratio 13.4 10-20 Random Glucose 111 70-99 mg/dl Lactic Acid Level 0.8 0.4-2.0 mmol/L Calcium Level 9.2 8.5-10.1 mg/dl Magnesium Level 2.0 1.8-2.4 mg/dl Total Bilirubin 0.5 0.2-1 mg/dl Aspartate Amino Transf (AST/SGOT) 17 15-37 U/L Alanine Aminotransferase (ALT/SGPT) 16 12-78 U/L Alkaline Phosphatase 143 45-117 U/L Troponin I < 0.015 0-0.045 ng/ml Total Protein 8.0 6.4-8.2 gm/dl Albumin 2.9 3.4-5.0 gm/dl Globulin 5.1 2.5-4.0 gm/dl Albumin/Globulin Ratio 0.6 0.9-2 Urine Color DK YELLOW Urine Appearance CLEAR CLEAR Urine pH 5.5 4.5-7.5 Urine Specific [place] 1.023 1.000-1.030 Urine Protein 1+ NEG Urine Glucose (UA) NEG NEG Urine Ketones TRACE NEG Urine Occult Blood 2+ NEG Urine Nitrite NEG NEG Urine Bilirubin NEG NEG Urine Urobilinogen NEG NEG Urine Leukocyte Esterase TRACE NEG Urine WBC (Auto) 1-5 0-5 /hpf Urine RBC (Auto) 10-30 0-4 /hpf Urine Hyaline Casts (Auto) 5-10 0-5 /lpf Urine Epithelial Cells (Auto) >30 0-5 /lpf Urine Bacteria (Auto) NEG NEG Influenza Type A Antigen Neg for Influ A NEG Influenza Type B Antigen Neg for Influ B NEG Microbiology Results 07/06/17 Blood Culture, Received Pending 07/06/17 Blood Culture, Received Pending Diagnostic Radiology Patient Name: NEY VALDOVINOS Unit Number: [id number] Dictated: 07/06/17809 Transcribed: 07/06/17809 JA Printed Date/Time: [~ rep prt dt]/[~ rep prt tm] [~ rep ct labl] - [~ rep ct ivnm] [facility] [place] [address] Dictated: 07/06/17809 Transcribed: 07/06/17809 JA Printed Date/Time: [~ rep prt dt]/[~ rep prt tm] [~ rep ct labl] - [~ rep ct ivnm] [~ rep ct add3]] CHEST ONE VIEW PORTABLE CLINICAL HISTORY: Fever. Chest tightness. COMPARISON STUDY: Chest CT June 16, 2017 and chest radiograph June 18, 2017 FINDINGS: Elevation of the right hemidiaphragm is unchanged. There is no pneumothorax. Small bilateral pleural effusions persist. Left basilar opacity is increased. There is pleural vascular congestion without overt pulmonary edema. Enlargement of the cardiac silhouette is unchanged. IMPRESSION: 1. Persistent bilateral pleural effusions with associated bibasilar opacities. Left basilar opacity is increased since prior exam. Atelectasis is favored although consolidation could appear similar. 2. Pulmonary vascular congestion without evidence of pulmonary edema. Electronically signed by: Rikki Herrera M.D. 07/06/2017 8:12 AM Dictated Date/Time: 07/06/2017 8:10 AM The status of this report is Signed. Draft = Not yet reviewed or approved by Radiologist. Signed = Reviewed and approved by Radiologist. <AttendingPhy></AttendingPhy> <FamilyPhy>Renzo Fuentes MD</FamilyPhy> < PrimaryPhy>Renzo Barker M.D.</PrimaryPhy> <UnitNumber>[id number]</ UnitNumber> <VisitNumber>[id number]</VisitNumber> <PatientName>NEY VALDOVINOS </PatientName> <DateOfBirth>1945</DateOfBirth> <Location>C.EDB</Location> <ServiceDate>07/06/17</ServiceDate> <MNE>ESINDI</MNE> <OrderingPhy>Cheryl Waters PA-C</OrderingPhy> <OrderingPhyMNE>f rep ord dr leiva</OrderingPhyMNE> < DictatingPhyMNE>f rep dict dr leiva</DictatingPhyMNE> <CCListMNE>f rep ct mne</ CCListMNE> <AdmittingPhyMNE>f pt admit dr leiva</AdmittingPhyMNE> <AttendingPhyMNE >f pt attend dr leiva</AttendingPhyMNE> <ConsultingPhyMNE>f pt consult dr leiva</ConsultingPhyMNE> <FamilyPhyMNE>f pt fam dr leiva</FamilyPhyMNE> <OtherPhyMNE>f pt other dr leiva</OtherPhyMNE> < PrimaryPhyMNE>f pt prim care dr leiva</PrimaryPhyMNE> <ReferringPhyMNE>f pt referring dr leiva</ReferringPhyMNE> [address] [place] [address] Performing Location: [facility] Patient Name: NEY VALDOVINOS Dictating Provider: Jose Fink M.D. Dictation Date: Report Signed By: Date: 1945 [employer] Representatives: WARD Room/Bed: Family Physician: Renzo Barker M.D. SC: KISHA Primary Care Physician: Renzo Barker M.D. Adm Date: Attending Physician: Dis Date: Admitting Physician: Ordering Physician: *NOTICE TO RECEIVING REPUBLICAN AGENCY This information is strictly Confidential and protected under [place] law. [place] law prohibits you from making any further disclosure of this information unless further disclosure is expressly permitted by the written consent of the person to whom it pertains or is authorized by law. A general authorization for the release of medical or other information is not sufficient for this purpose. Hospital accepts no responsibility if the information is made available to any other person, INCLUDING THE PATIENT. Interpretation Summary * Name: NEY VALDOVINOS Study Date: 07/06/2017 11:16 AM BP: 124/79 mmHg * Patient Location: ED- HR: 84 * : 1945 (M/d/yyyy) Gender: Female Height: 63 in * Age: 72 yrs Ethnicity: [place] Weight: 189 lb * Ordering Physician: Cheryl Waters * Performed By: Tabatha Foster * * Reason For Study: PERICARDIAL EFFUSION ON LAST ECHO * BSA: 1.9 m2 * -- Conclusions -- * The study was technically difficult. * Left ventricular systolic function is normal. * No regional wall motion abnormalities noted. * Ejection Fraction = 60-65%. * There is mild concentric left ventricular hypertrophy. * There is mild right ventricular hypertrophy. * There is pericardial thickening and/or a small pericardial effusion. Procedure Details * The study was technically difficult. Left Ventricle * The left ventricle is grossly normal size. * There is mild concentric left ventricular hypertrophy. * Left ventricular systolic function is normal. * Ejection Fraction = 60-65%. * No regional wall motion abnormalities noted. Right Ventricle * The right ventricle is grossly normal size. * There is mild right ventricular hypertrophy. * The right ventricular systolic function is normal. Atria * The left atrium is mildly dilated. * Right atrium not well visualized. * There is no evidence of atrial septal defect, but resolution does not allow assessment for a patent foramen ovale. Mitral Valve * The mitral valve is not well visualized. * There is moderate to severe mitral annular calcification. Tricuspid Valve * The tricuspid valve is not well visualized. Aortic Valve * The prosthetic aortic valve is well-seated. Pulmonic Valve * The pulmonary valve is not well seen, but the Doppler examination is normal without significant regurgitation or stenosis. Great Vessels * The aortic root is normal size. Pericardium/Pleural * There is pericardial thickening and/or a small pericardial effusion. EKG EKG shows normal sinus rhythm at 98 bpm, right bundle branch block, no change when compared to 06/16/2017. Impression Assessment and Plan Bilateral parapneumonic effusions-- Vancomycin IV, Zosyn IV, Levaquin IV. Solu-Medrol 30 mg IV every 8 hours. Guaifenesin extended release 600 mg by mouth twice a day Xopenex/Atrovent nebulizer every 6 hours while awake and every 2 hours when necessary. Nasal cannula 2 L oxygen, titrate to keep pulse ox greater than or equal to 92%. Pericarditis/pericardial effusion with thrombus/bioprosthetic AVR/chronic diastolic dysfunction/hypertension/DVT PE history-- 2-D echocardiogram performed in emergency department does not demonstrate previously concerned thrombus. Pericardial effusion does still persist on echo today. Continue colchicine 0.600 g by mouth twice a day. Hold ibuprofen and we will Solu-Medrol being used above. Continue carvedilol 3.125 mg by mouth twice a day, aspirin 81 mg by mouth every morning, lisinopril 10 mg by mouth every morning and warfarin. Follow serial CBC with differential, BMP, magnesium and PT/INR. Consult cardiology Dr. Fink to follow. GERD/Smith's esophagus-- Continue pantoprazole 40 mg by mouth twice a day, ranitidine 150 mg by mouth twice a day, and sucralfate 1 g by mouth 4 times a day. Hyperlipidemia-- Continue rosuvastatin 20 mg by mouth daily. Anxiety/depression/insomnia-- Continue mirtazapine 15 mg by mouth every evening and clonazepam 0.5 mg by mouth at bedtime. Next Muscle spasm-- Continue baclofen 10 mg by mouth twice a day Level of Care Telemetry Advanced Directives Existing Advance Directive: No Existing Living Will: Yes Existing Power of Manager [employer]: Yes Resuscitation Status FULL RESUSCITATION VTE Prophylaxis VTE Risk Assessment Done? Y/N: Yes Risk Level: Moderate Given or contraindicated: Warfarin (Coumadin) Social Service Consult None Apply
[2017-07-06] MEDS ORDERED: PIPERACILL/TAZOBAC CONSULT ACTIVE PRN (14:30)
[2017-07-06] MEDS ORDERED: POTASSIUM CHLORIDE 20 MEQ TABCR PO ONE (14:30)
--- NOTE | 2017-07-06 14:38 | Pharmacy Progress Note ---
Pharmacy Antibiotic Consult Date of Service: Jul 06, 2017. Pharmacy Dosing Scope Pharmacy is consulted to initiate VANCOMYCIN / ZOSYN IV dosing therapy, order appropriate labs and adjust drug dose/frequency. Subjective The patient is a 72 year old female admitted on Jul 06, 2017 at 11:52. Objective Height (Feet): 5 Height (Inches): 3.00 Weight (Kilograms): 86.000 Lab Results (24hrs): Test 07/06/17 08:00 07/06/17 08:14 07/06/17 08:19 07/06/17 14:22 White Blood Count 13.25 K/uL (4.8-10.8) Red Blood Count 4.10 M/uL (4.2-5.4) Hemoglobin 11.0 g/dL (12.0-16.0) Hematocrit 34.2 % (37-47) Mean Corpuscular Volume 83.4 fL (80-100) Mean Corpuscular Hemoglobin 26.8 pg (25-34) Mean Corpuscular Hemoglobin Concent 32.2 g/dl (32-36) Platelet Count 318 K/uL (130-400) Mean Platelet Volume 10.5 fL (7.4-10.4) Neutrophils (%) (Auto) 77.3 % Lymphocytes (%) (Auto) 9.4 % Monocytes (%) (Auto) 11.2 % Eosinophils (%) (Auto) 1.4 % Basophils (%) (Auto) 0.3 % Neutrophils # (Auto) 10.25 K/uL (1.4-6.5) Lymphocytes # (Auto) 1.25 K/uL (1.2-3.4) Monocytes # (Auto) 1.48 K/uL (0.11-0.59) Eosinophils # (Auto) 0.18 K/uL (0-0.5) Basophils # (Auto) 0.04 K/uL (0-0.2) RDW Standard Deviation 51.9 fL (36.4-46.3) RDW Coefficient of Variation 17.1 % (11.5-14.5) Immature Granulocyte % (Auto) 0.4 % Immature Granulocyte # (Auto) 0.05 K/uL (0.00-0.02) Sodium Level 142 mmol/L (136-145) Potassium Level 3.3 mmol/L (3.5-5.1) Chloride Level 108 mmol/L (98-107) Carbon Dioxide Level 24 mmol/L (21-32) Anion Gap 10.0 mmol/L (3-11) Blood Urea Nitrogen 12 mg/dl (7-18) Creatinine 0.90 mg/dl (0.60-1.20) Estimated GFR () 74.6 Estimated GFR (Non- 64.3 BUN/Creatinine Ratio 13.4 (10-20) Random Glucose 111 mg/dl (70-99) Lactic Acid Level 0.8 mmol/L (0.4-2.0) Calcium Level 9.2 mg/dl (8.5-10.1) Magnesium Level 2.0 mg/dl (1.8-2.4) Total Bilirubin 0.5 mg/dl (0.2-1) Aspartate Amino Transf (AST/SGOT) 17 U/L (15-37) Alanine Aminotransferase (ALT/SGPT) 16 U/L (12-78) Alkaline Phosphatase 143 U/L (45-117) Troponin I < 0.015 ng/ml (0-0.045) Total Protein 8.0 gm/dl (6.4-8.2) Albumin 2.9 gm/dl (3.4-5.0) Globulin 5.1 gm/dl (2.5-4.0) Albumin/Globulin Ratio 0.6 (0.9-2) Urine Color DK YELLOW Urine Appearance CLEAR (CLEAR) Urine pH 5.5 (4.5-7.5) Urine Specific [place] 1.023 (1.000-1.030) Urine Protein 1+ (NEG) Urine Glucose (UA) NEG (NEG) Urine Ketones TRACE (NEG) Urine Occult Blood 2+ (NEG) Urine Nitrite NEG (NEG) Urine Bilirubin NEG (NEG) Urine Urobilinogen NEG (NEG) Urine Leukocyte Esterase TRACE (NEG) Urine WBC (Auto) 1-5 /hpf (0-5) Urine RBC (Auto) 10-30 /hpf (0-4) Urine Hyaline Casts (Auto) 5-10 /lpf (0-5) Urine Epithelial Cells (Auto) >30 /lpf (0-5) Urine Bacteria (Auto) NEG (NEG) Influenza Type A Antigen Neg for Influ A (NEG) Influenza Type B Antigen Neg for Influ B (NEG) Micro Results: * 07/06/17 -- Blood Cx x 2 -- pending Recent Pertinent Medications Item Value Date Time Piperacillin Sod/ 115 ml @ 28.75 mls/hr 07/06/17 1600 Tazobactam Sod Q8H/IV 3.375 gm/Dextrose Levofloxacin 500 100 ml @ 100 mls/hr 07/06/17 1500 mg/Prmx Q24H/IV Assessment & Plan 72yo female admitted with PNA, recent hospitalization 06/16-06/19/17. Ordered VANCOMYCIN / LEVAQUIN / ZOSYN. Renal function is good and at baseline. VANCOMYCIN: * Loading dose: VANCOMYCIN 1720mg (~20mg/kg) IV X 1 dose then VANCOMYCIN 1250mg (~15mg/kg) IV every 18 hours. * Estimated Pk parameters: Vd ~0.7 L/kg ke ~0.054 t1/2 ~13hrs * Goal trough level estimate: between 15 - 20 mcg/mL. * Will check a trough level prior to the 1600 dose on 07/08/17. Pharmacy will continue to follow and will adjust dose/frequency as necessary. Thank you
[2017-07-06] MEDS ORDERED: VANCOMYCIN CONSULT ACTIVE PRN (14:45)
[2017-07-06] MEDS: SUCRALFATE 1 GM/10 ML UDC PO SCH ×3 (14:49→20:43)
[2017-07-06] MEDS: METHYLPREDNISOLONE IV 30 MG in SYRINGE 0 ML IV SCH ×2 (14:49→22:00)
--- NOTE | 2017-07-06 14:59 | EMERGENCY ROOM VISIT NOTE ---
ED Visit Note First contact with patient: 07:33 I have personally evaluated and examined this patient. I agree with assessment and plan of Cheryl Waters PA-C. 72 yr old female with hypoxic pneumonia and recent hospitalization who is stable on NC O2 though will need to come back in.
[2017-07-06] MEDS ORDERED: LEVALBUTEROL/IPRATROPIUM NEB INH SCH (15:00)
[2017-07-06 15:06] LABS: INR 1.7 (0.9-1.1); PROTHROMBIN TIME (PATIENT) 18.4 SECONDS (9.0-12.0)
[2017-07-06] MEDS: LEVOFLOXACIN / D5W 500 MG in PREMIXED IN D5W 100 ML IV SCH (15:57)
[2017-07-06] MEDS: PIPERACILL/TAZOBAC IV 3.375 GM in DEXTROSE 5% 100ML 100 ML IV SCH (16:01)
[2017-07-06] MEDS: WARFARIN SOD 6 MG TAB PO SCH (16:14)
[2017-07-06] MEDS: RANITIDINE HCL 150 MG TAB PO SCH (20:44)
[2017-07-06] MEDS: GUAIFENESIN 600 MG TABCR PO SCH (20:44)
[2017-07-06] MEDS: PANTOprazole SOD 40 MG TAB PO SCH (20:45)
[2017-07-06] MEDS: BACLOFEN 10 MG TAB PO SCH (20:45)
[2017-07-06] MEDS: CARVEDILOL 3.125 MG TAB PO SCH (20:46)
[2017-07-06] MEDS: COLCHICINE 0.6 MG TAB PO SCH (20:46)
[2017-07-06] MEDS ORDERED: NURSING VERBAL MED ORDER ONE (21:00)
[2017-07-06] MEDS ORDERED: MIRTAZAPINE TAB 15 MG TAB PO SCH (21:00)
[2017-07-06] MEDS ORDERED: CLONAZEPAM 0.5 MG TAB PO SCH (21:00)
[2017-07-06] MEDS: CLONAZEPAM 0.5 MG TAB PO SCH (22:16)
[2017-07-06] MEDS: MIRTAZAPINE TAB 15 MG TAB PO SCH (22:16)
[2017-07-07] VITALS (11 sets, daily range): BP systolic 116–157; BP diastolic 76–85; PULSE 63–78; TEMP 36.3–36.6; O2SAT 93–96
[2017-07-07] MEDS: PIPERACILL/TAZOBAC IV 3.375 GM in DEXTROSE 5% 100ML 100 ML IV SCH ×4 (00:37→23:51)
[2017-07-07] MEDS: LEVALBUTEROL 1.25MG/0.5ML NEB INH SCH ×4 (01:51→19:36)
[2017-07-07] MEDS: IPRATROPIUM BROMIDE NEB SOLN 0.02% 2.5 ML VIAL INH SCH ×4 (01:51→19:36)
[2017-07-07] MEDS ORDERED: VANCOMYCIN INJ 1,300 MG in SODIUM CHLORIDE 0.9% 250ML 250 ML IV SCH (04:00)
[2017-07-07] MEDS ORDERED: VANCOMYCIN INJ 1,250 MG in SODIUM CHLORIDE 0.9% 250ML 250 ML IV SCH (04:00)
[2017-07-07] MEDS: METHYLPREDNISOLONE IV 30 MG in SYRINGE 0 ML IV SCH (06:00)
[2017-07-07 06:30] LABS: CREATININE 0.84 mg/dl (0.60-1.20)
[2017-07-07 06:35] LABS: INR 2.1 (0.9-1.1); PROTHROMBIN TIME (PATIENT) 22.8 SECONDS (9.0-12.0)
[2017-07-07] MEDS: SUCRALFATE 1 GM/10 ML UDC PO SCH ×3 (08:28→19:58)
[2017-07-07] MEDS: CARVEDILOL 3.125 MG TAB PO SCH ×2 (08:29→19:59)
[2017-07-07] MEDS: COLCHICINE 0.6 MG TAB PO SCH ×2 (08:29→19:59)
[2017-07-07] MEDS: ROSUVASTATIN CALCIUM 20 MG TAB PO SCH (08:29)
[2017-07-07] MEDS: ASPIRIN 81 MG ECTAB PO SCH (08:29)
[2017-07-07] MEDS: PANTOprazole SOD 40 MG TAB PO SCH ×2 (08:30→19:59)
[2017-07-07] MEDS: BACLOFEN 10 MG TAB PO SCH ×2 (08:30→20:00)
[2017-07-07] MEDS: CHOLECALCIFEROL 1000 INTER.UNIT TAB PO SCH (08:30)
[2017-07-07] MEDS: GUAIFENESIN 600 MG TABCR PO SCH ×2 (08:30→19:58)
[2017-07-07] MEDS: RANITIDINE HCL 150 MG TAB PO SCH ×2 (08:31→19:58)
[2017-07-07] MEDS: LISINOPRIL 20 MG TAB PO SCH (08:31)
[2017-07-07] MEDS ORDERED: OXYCODONE HCL IR 5 MG TAB (IMMEDIATE RELEASE) PO PRN (10:30)
--- NOTE | 2017-07-07 13:29 | CARDIOLOGY CONSULTATION ---
DATE OF CONSULTATION: 07/07/2017 CONSULTATION REQUESTED BY: Dr. Masters. REASON FOR CONSULTATION: Chest pain. HISTORY OF PRESENT ILLNESS: Mrs. Madsen is a very pleasant 72-year-old woman, well known to me from the outpatient setting and recent hospitalizations with a complex history including severe aortic stenosis, status post minimally invasive bioprosthetic aortic valve replacement in April of 2017, mild nonobstructive coronary artery disease and recent postoperative course, which has included subsegmental PE and DVT and pericarditis, who returns with recurrent pleuritic chest pain. The patient had multiple recent hospitalizations and most recently was admitted approximately 2-1/2 weeks ago with pleuritic chest pain. This was thought to be secondary to pericarditis. The patient had previously been on NSAIDs and colchicine prior to that hospitalization and had been recently started on steroids, which after discontinuation led to significant worsening of her symptoms. She was discharged on again NSAIDs and colchicine, which she has been tolerating with some difficulty due to her Smith esophagus, esophagitis and GI issues. More recently, the patient states that she has recently started cardiac rehab and had been doing more things, although still feeling tired and weak. On the morning of admission, again developed recurrent pain, radiating around her left flank, primarily pleuritic in nature. This was intolerable and she again presented to Emergency Department. In the ED, she had a chest x-ray, which was read as persistent bilateral pleural effusions with some bibasilar opacities as well as some mild pulmonary vascular congestion. She was started on antibiotics for possible pneumonia and given IV steroids. Since being admitted, she continues to have intermittent pleuritic pain and just feels uncomfortable and weak. PAST MEDICAL HISTORY: 1. Severe aortic stenosis, status post minimally invasive bioprosthetic aortic valve in 04/11/2017. 2. Mild nonobstructive coronary artery disease on coronary angiography in March 2017. 3. Pericarditis. 4. Right lower extremity DVT and subsegmental PE in May 2017. 5. Dyslipidemia. 6. Heterozygous prothrombin gene mutation. 7. Obstructive sleep apnea. 8. GERD. 9. Fatty liver disease. 10. Pleural effusion. 11. Pericardial effusion. 12. Hypertension. 13. Anemia. 14. Recurrent diarrhea. HOME MEDICATIONS: Include aspirin 81, baclofen, carvedilol 3.125, vitamin D3, clonazepam, colchicine 0.6 b.i.d., ibuprofen 600 mg t.i.d., lisinopril 20, mirtazapine, Protonix 40 mg, miconazole, ranitidine, rosuvastatin 20, sucralfate, and warfarin. ALLERGIES: ATORVASTATIN, DILTIAZEM, AND NIACIN. SOCIAL HISTORY: Denies tobacco or drug abuse. Rare alcohol. She lives with her . She is a [employer] and refuses blood products. FAMILY HISTORY: Two brothers with reported coronary artery disease. REVIEW OF SYSTEMS: Ten point review of system is completed and otherwise negative unless stated in the HPI. PHYSICAL EXAMINATION: VITAL SIGNS: Temperature 36.5, pulse 70, blood pressure 133/80 and she is satting 96% on 2 liters. GENERAL: The patient appears uncomfortable, in no acute distress. HEENT: Sclerae are anicteric. Oropharynx is clear. Mucous membranes are moist. NECK: Supple. She has no lymphadenopathy. She has no jugular venous distention. LUNGS: She has a few crackles at her bases, left greater than right. CARDIAC: She has a regular rate and rhythm. She has a crisp bioprosthetic click. No appreciable murmurs. ABDOMEN: Soft, nontender, and nondistended with positive bowel sounds. EXTREMITIES: Warm. She has no significant lower extremity edema. She has intact distal pulses. SKIN: Shows no rashes or lesions. NEUROLOGIC: Nonfocal. PSYCHIATRIC: She is alert and oriented and appropriate. LABORATORY DATA: INR is 2.1. White blood cell count is 13.3, hemoglobin is 34 and platelets of 318. Sodium 142, potassium 3.3, BUN 12, and creatinine 0.9. LFTs within normal limits except for slightly elevated alkaline phosphatase at 143. Albumin is 2.9. Chest x-ray as discussed above. EKG shows sinus rhythm with right bundle branch block. No significant ST abnormalities. Echocardiogram showed normal LV function, EF 60%-65%, mild LVH, mild RVH and there was stable and improved pericardial thickening/mild pericardial effusion. IMPRESSION AND PLAN: 1. Recurrent pleuritic chest pain. 2. Pericarditis. 3. Persistent pleural effusion. 4. Questionable pneumonia. 5. Aortic valve replacement in April of 2017. 6. History of severe aortic stenosis. 7. Minimal nonobstructive coronary artery disease. 8. Recent small/subsegmental pulmonary embolism/deep venous thrombosis. 9. Smith's esophagus. 10. Anemia. Mrs. Madsen returns with recurrent pleuritic chest pain, which unfortunately has been significantly limiting for the patient now for almost 3 months since her surgery. Her management has been complicated by her significant GI/reflux issues which despite GI prophylaxis, has worsened with NSAIDs. For now preference would be to continue back on long-standing ibuprofen and colchicine with GI prophylaxis regimen as doing. Feel that patient may need some additional supplemental pain meds on discharge. Will consider need for prolonged steroids taper, although would like to avoid as the patient did appear to have significant worsening of symptoms off steroids whenever tried previously. For now, continue as above, check CRP and will continue to follow. Thank you for allowing us to participate in the care of this patient. DIAMOND
--- NOTE | 2017-07-07 13:31 | Progress Note ---
Subjective Date of Service: Jul 07, 2017. Subjective Pt evaluation today including: conversation w/ patient, conversation w/ family (), physical exam, lab review, review of inpatient medication list Pain: chest pain, intermittent, worse with breathing PO Intake: poor appetite Voiding: no voiding problems patient feeling better since time of admission, no new issues overnight discussed the case with Dr. Fuentes with cardiology, recommends stopping Solu Medrol, using NSAID, add pain control discussed with patient, plan to transfer to medical, work on pain control she had some loose stools with Colchicine but improved with Imodium prior to admission Problem List Medical Problems: (1) Abdominal pain Status: Acute (2) Acute diverticulitis Status: Acute (3) Back pain Status: Acute (4) Bilateral pleural effusion Status: Acute (5) Gastritis Status: Acute (6) Hypokalemia Status: Acute (7) Mild dehydration Status: Acute (8) Pleural effusion Status: Acute (9) Pulmonary emboli Status: Acute (10) Shortness of breath Status: Acute (11) Shortness of breath Status: Acute Review of Systems Constitutional: + weakness, + fatigue Cardiac: + chest pain All Other Systems: Reviewed and Negative Medications Current Inpatient Medications Medications (Trade) Dose Ordered Sig/[place] Route Start Time Stop Time Status Last Admin Dose Admin Acetaminophen (Tylenol Tab) 650 mg Q4H PRN PO 07/06/17 12:00 08/05/17 11:59 07/07/17 08:40 650 MG Nitroglycerin (Nitrostat Tab) 0.4 mg UD PRN SL 07/06/17 12:00 08/05/17 11:59 Aspirin (Ecotrin Tab) 81 mg QAM PO 07/07/17 09:00 08/06/17 08:59 07/07/17 08:29 81 MG Baclofen (Lioresal Tab) 10 mg BID PO 07/06/17 21:00 08/05/17 20:59 07/07/17 08:30 10 MG Carvedilol (Coreg Tab) 3.125 mg BID PO 07/06/17 21:00 08/05/17 20:59 07/07/17 08:29 3.125 MG Clonazepam (Klonopin Tab) 0.25 mg DAILY PRN PO 07/06/17 12:00 08/05/17 11:59 Colchicine (Colchicine Tab) 0.6 mg BID PO 07/06/17 21:00 08/05/17 20:59 07/07/17 08:29 0.6 MG Lisinopril (Zestril Tab) 20 mg DAILY PO 07/07/17 09:00 08/06/17 08:59 07/07/17 08:31 20 MG Miconazole Nitrate (Desenex Powder) 1 appln PRN PRN EXT 07/06/17 12:00 08/05/17 11:59 Pantoprazole Sodium (Protonix Tab) 40 mg BID PO 07/06/17 21:00 08/05/17 20:59 07/07/17 08:30 40 MG Ranitidine HCl (zANTac TAB) 150 mg BID PO 07/06/17 21:00 08/05/17 20:59 07/07/17 08:31 150 MG Rosuvastatin Calcium (Crestor Tab) 20 mg DAILY PO 07/07/17 09:00 08/06/17 08:59 07/07/17 08:29 20 MG Sucralfate (Carafate Susp) 1 gm QID PO 07/06/17 13:00 08/05/17 12:59 07/07/17 08:28 1 GM Warfarin Sodium (Coumadin Tab) 6 mg SuMoTuWeThSa@1600 PO 07/06/17 16:00 08/05/17 15:59 07/06/17 16:14 6 MG Cholecalciferol (Vitamin D Tab) 2,000 inter.unit QAM PO 07/07/17 09:00 08/06/17 08:59 07/07/17 08:30 2,000 INTER.UNIT Piperacillin Sod/ Tazobactam Sod 3.375 gm/Dextrose 115 ml @ 28.75 mls/ hr Q8H IV 07/06/17 16:00 07/13/17 15:59 07/07/17 08:27 28.75 MLS/HR Levofloxacin 500 mg/Prmx 100 ml @ 100 mls/hr Q24H IV 07/06/17 15:00 07/13/17 14:59 07/06/17 15:57 100 MLS/HR Guaifenesin (Mucinex Contr Rel Tab) 600 mg BID PO 07/06/17 21:00 08/05/17 20:59 07/07/17 08:30 600 MG Ipratropium [place] (Atrovent 0.02% 0.5MG/2.5ML Neb) 0.5 mg Q6R INH 07/06/17 15:00 08/05/17 14:59 07/07/17 07:20 0.5 MG Levalbuterol (Xopenex 1.25MG/ 0.5ML Neb) 1.25 mg Q6R INH 07/06/17 15:00 08/05/17 14:59 07/07/17 07:20 1.25 MG Piperacillin Sod/ Tazobactam Sod (Consult) 1 ea UD PRN N/A 07/06/17 14:30 08/05/17 14:29 Vancomycin HCl (Consult) 1 ea UD PRN N/A 07/06/17 14:45 08/05/17 14:44 Warfarin Sodium (Coumadin Tab) 4.5 mg Fr@1600 PO 07/11/17 16:00 08/10/17 15:59 Vancomycin HCl 1250 mg/Sodium Chloride 275 ml @ 125 mls/hr Q18H IV 07/07/17 04:00 07/14/17 03:59 07/07/17 04:33 125 MLS/HR Clonazepam (Klonopin Tab) 0.5 mg DAILY@2200 PO 07/06/17 22:00 08/05/17 21:59 07/06/17 22:16 0.5 MG Mirtazapine (Remeron Tab) 15 mg DAILY@2200 PO 07/06/17 22:00 08/05/17 21:59 07/06/17 22:16 15 MG Ibuprofen (Advil Tab) 400 mg TID PO 07/07/17 14:00 08/06/17 13:59 Oxycodone HCl (Roxicodone Immediate Rel Tab) 5 mg Q4 PRN PO 07/07/17 10:30 07/21/17 10:29 Objective Vital Signs Date Time Temp Pulse Resp B/P (MAP) Pulse Ox O2 Delivery O2 Flow Rate FiO2 07/07/17 12:11 36.6 73 28 96 2.0 07/07/17 11:33 36.6 73 28 129/80 (96) 96 Nasal Cannula 2.0 07/07/17 08:23 36.5 70 21 133/80 (97) 96 Nasal Cannula 2.0 07/07/17 08:00 Nasal Cannula 2.0 07/07/17 07:22 69 16 95 Nasal Cannula 2.0 07/07/17 04:00 Nasal Cannula 2.0 07/07/17 03:20 36.5 71 18 157/78 (104) 95 Nasal Cannula 2.0 07/07/17 01:52 63 14 94 Nasal Cannula 2.0 07/06/17 23:59 Nasal Cannula 2.0 07/06/17 23:25 36.5 70 20 108/64 (79) 94 Nasal Cannula 2.0 07/06/17 20:00 Nasal Cannula 2.0 07/06/17 19:44 36.5 89 18 133/82 (99) 93 Room Air 07/06/17 18:42 86 16 98 Nasal Cannula 2.0 07/06/17 16:01 97 Nasal Cannula 2.0 07/06/17 15:03 36.6 89 20 130/86 (101) 97 Nasal Cannula 2.0 07/06/17 13:41 81 16 95 Nasal Cannula 2.0 07/06/17 13:33 37.0 83 26 137/72 (93) 97 Nasal Cannula 2.0 Physical Exam General Appearance: WD/WN, no apparent distress Eyes: normal inspection, EOMI, sclerae normal ENT: normal ENT inspection, hearing grossly normal, pharynx normal Neck: supple, no adenopathy, no JVD, trachea midline Respiratory/Chest: chest non-tender, lungs clear, normal breath sounds, no respiratory distress, no accessory muscle use Cardiovascular: regular rate, rhythm, no edema, no gallop, no JVD, no murmur Abdomen: normal bowel sounds, non tender, soft, no organomegaly Extremities: normal range of motion, non-tender, normal inspection, no pedal edema, no calf tenderness, pelvis stable Neurologic/Psychiatric: blankbook forwarder II-XII nml as tested, no motor/sensory deficits, alert, normal mood/affect, oriented x 3 Skin: normal color, warm/dry, no rash Laboratory Results Last 24 Hours Test 07/06/17 14:42 07/07/17 05:37 Prothrombin Time 18.4 SECONDS 22.8 SECONDS Prothromb Time International Ratio 1.7 2.1 Creatinine 0.84 mg/dl Est Creatinine Clear Calc Drug Dose 68.2 ml/min Estimated GFR () 81.0 Estimated GFR (Non- 69.9 Assessment and Plan - Pleural effusions: possibly due to pneumonia, WBC is up at 13k, but no fever, no cough will stop Vanco since MRSA swab negative continue empiric antibiotics for 48 hours and reassess likely related to the pericarditis and pericardial effusions - Pericarditis, pericardial effusion: stop Solu Medrol, start ibuprofen 400mg TID, Colchicine Oxycodone 5mg q4 PRN for pain Continue carvedilol 3.125 mg by mouth twice a day, aspirin 81 mg by mouth every morning, lisinopril 10 mg by mouth every morning and warfarin. appreciate cardiology consult GERD/Smith's esophagus-- Continue pantoprazole 40 mg by mouth twice a day, ranitidine 150 mg by mouth twice a day, and sucralfate 1 g by mouth 4 times a day. Hyperlipidemia-- Continue rosuvastatin 20 mg by mouth daily. Anxiety/depression/insomnia-- Continue mirtazapine 15 mg by mouth every evening and clonazepam 0.5 mg by mouth at bedtime. Next Muscle spasm-- Continue baclofen 10 mg by mouth twice a day transfer to medical floor, reassess tomorrow, goal is to achieve better pain control
[2017-07-07] MEDS: IBUPROFEN 200 MG TAB PO SCH ×2 (14:00→19:59)
[2017-07-07] MEDS: LEVOFLOXACIN / D5W 500 MG in PREMIXED IN D5W 100 ML IV SCH (15:10)
[2017-07-07] MEDS ORDERED: SODIUM CHLORIDE 0.65% NA SOLN 45 ML (OCEAN) ONE (16:43)
[2017-07-07] MEDS ORDERED: NURSING VERBAL MED ORDER ONE (17:00)
[2017-07-07] MEDS ORDERED: SODIUM CHLORIDE 0.65% NA SOLN 45 ML (OCEAN) PRN (17:00)
[2017-07-07] MEDS: WARFARIN SOD 6 MG TAB PO SCH (17:15)
[2017-07-07] MEDS ORDERED: NURSING DECISION MEDICATION ORDER SCH (19:30)
[2017-07-07] MEDS ORDERED: COUGH DROP (SUGAR FREE) LOZ 24 LOZ/1 BOX PO PRN (19:45)
[2017-07-07] MEDS: MIRTAZAPINE TAB 15 MG TAB PO SCH (22:20)
[2017-07-07] MEDS: CLONAZEPAM 0.5 MG TAB PO SCH (22:20)
[2017-07-08] VITALS (9 sets, daily range): BP systolic 120–149; BP diastolic 76–85; PULSE 64–78; TEMP 36.3–36.4; O2SAT 94–99
[2017-07-08] MEDS: IPRATROPIUM BROMIDE NEB SOLN 0.02% 2.5 ML VIAL INH SCH ×4 (01:34→19:07)
[2017-07-08] MEDS: LEVALBUTEROL 1.25MG/0.5ML NEB INH SCH ×4 (01:34→19:07)
[2017-07-08 05:56] LABS: BASO % 0.5 %; BASO ABS # 0.03 K/uL (0-0.2); EOS % 2.8 %; IG% 0.2 %; LYMPH % 28.5 %; LYMPH ABS # 1.72 K/uL (1.2-3.4); MEAN CELL VOLUME 85.9 fL (80-100); MEAN CORPUSCULAR HEMOGLOBIN 26.1 pg (25-34); MEAN CORPUSCULAR HGB CONC 30.4 g/dl (32-36); MEAN PLATELET VOLUME 10.2 fL (7.4-10.4); MONO % 11.9 %; NEUT % 56.1 %; PLATELET COUNT 277 K/uL (130-400); RED BLOOD COUNT 3.26 M/uL (4.2-5.4); WHITE BLOOD COUNT 6.03 K/uL (4.8-10.8)
[2017-07-08 06:05] LABS: INR 2.7 (0.9-1.1); PROTHROMBIN TIME (PATIENT) 30.3 SECONDS (9.0-12.0)
[2017-07-08 06:24] LABS: COMPLETE YES; POLYCHROMASIA 1+
[2017-07-08 06:36] LABS: CREATININE 0.95 mg/dl (0.60-1.20)
[2017-07-08] MEDS: BACLOFEN 10 MG TAB PO SCH ×2 (08:33→20:27)
[2017-07-08] MEDS: GUAIFENESIN 600 MG TABCR PO SCH ×2 (08:33→20:27)
[2017-07-08] MEDS: PIPERACILL/TAZOBAC IV 3.375 GM in DEXTROSE 5% 100ML 100 ML IV SCH ×2 (08:33→17:21)
[2017-07-08] MEDS: PANTOprazole SOD 40 MG TAB PO SCH ×2 (08:34→20:27)
[2017-07-08] MEDS: LISINOPRIL 20 MG TAB PO SCH (08:34)
[2017-07-08] MEDS: RANITIDINE HCL 150 MG TAB PO SCH ×2 (08:34→20:27)
[2017-07-08] MEDS: CHOLECALCIFEROL 1000 INTER.UNIT TAB PO SCH (08:35)
[2017-07-08] MEDS: CARVEDILOL 3.125 MG TAB PO SCH ×2 (08:35→20:27)
[2017-07-08] MEDS: IBUPROFEN 200 MG TAB PO SCH ×3 (08:38→20:27)
[2017-07-08] MEDS: COLCHICINE 0.6 MG TAB PO SCH ×2 (08:38→20:27)
[2017-07-08] MEDS: SUCRALFATE 1 GM/10 ML UDC PO SCH ×4 (08:39→20:27)
[2017-07-08] MEDS: ASPIRIN 81 MG ECTAB PO SCH (08:39)
[2017-07-08] MEDS: ROSUVASTATIN CALCIUM 20 MG TAB PO SCH (08:42)
--- NOTE | 2017-07-08 13:33 | Cardiology Follow-Up ---
Subjective Subjective Date of Service: Jul 08, 2017. Pt evaluation today including: conversation w/ patient, physical exam, chart review, lab review, review of studies, review of inpatient medication list Additional Details: Still feeling lousy today. Primary concerns today regarding pain in her legs, overall feeling down. Left-sided chest pain improved. Does endorse some right-sided chest pain today. Problem List Medical Problems: (1) Abdominal pain Status: Acute (2) Acute diverticulitis Status: Acute (3) Back pain Status: Acute (4) Bilateral pleural effusion Status: Acute (5) Gastritis Status: Acute (6) Hypokalemia Status: Acute (7) Mild dehydration Status: Acute (8) Pleural effusion Status: Acute (9) Pulmonary emboli Status: Acute (10) Shortness of breath Status: Acute (11) Shortness of breath Status: Acute Review of Systems Constitutional: + weakness, + fatigue, No fever, No chills Respiratory: + shortness of breath, + dyspnea on exertion Cardiac: + chest pain Abdomen: No pain, No nausea Musculoskeletal: + muscle pain Female : No dysuria Psychiatric: + depression symptoms Endo: + fatigue Objective Vital Signs Last Vital Signs Documentation Date Time Temp Pulse Resp B/P (MAP) Pulse Ox O2 Delivery O2 Flow Rate FiO2 07/08/17 08:00 97 Room Air 07/08/17 07:10 68 16 2.0 07/08/17 07:08 36.4 149/85 (106) Physical Exam: General Appearance: no apparent distress ENT: hearing grossly normal Neck: supple, no JVD Respiratory/Chest: chest non-tender, lungs clear, normal breath sounds, no respiratory distress, no accessory muscle use Cardiovascular: regular rate, rhythm, no edema, no JVD, + pertinent finding ( crisp AVR closure) Abdomen: normal bowel sounds, non tender, soft Extremities: non-tender, no pedal edema, no calf tenderness Neurologic/Psychiatric: alert, normal mood/affect, oriented x 3 Skin: normal color, warm/dry, no rash Assessment and Plan 1. Recurrent pleuritic chest pain. 2. Pericarditis. 3. Persistent pleural effusion. 4. Questionable pneumonia. 5. Aortic valve replacement in April of 2017. 6. History of severe aortic stenosis. 7. Minimal nonobstructive coronary artery disease. 8. Recent small/subsegmental pulmonary embolism/deep venous thrombosis. 9. Smith's esophagus. 10. Anemia. Patient continues to feel unwell during her prolonged difficult recovery following AVR 3 months ago. Recommend continued symptom management for pericarditis/chest wall pain Still on antibiotics for possible pneumonia --with pericarditis will repeat a CRP today --for now continue current anti-inflammatory regimen --continue current GI prophylaxis --symptom management with pain meds, anxiolytics as needed Will continue to follow. Appreciate Hospital Medicine team care Medications: Current Inpatient Medications Medications (Trade) Dose Ordered Sig/[place] Route Start Time Stop Time Status Last Admin Dose Admin Acetaminophen (Tylenol Tab) 650 mg Q4H PRN PO 07/06/17 12:00 08/05/17 11:59 07/07/17 08:40 650 MG Nitroglycerin (Nitrostat Tab) 0.4 mg UD PRN SL 07/06/17 12:00 08/05/17 11:59 Aspirin (Ecotrin Tab) 81 mg QAM PO 07/07/17 09:00 08/06/17 08:59 07/08/17 08:39 81 MG Baclofen (Lioresal Tab) 10 mg BID PO 07/06/17 21:00 08/05/17 20:59 07/08/17 08:33 10 MG Carvedilol (Coreg Tab) 3.125 mg BID PO 07/06/17 21:00 08/05/17 20:59 07/08/17 08:35 3.125 MG Clonazepam (Klonopin Tab) 0.25 mg DAILY PRN PO 07/06/17 12:00 08/05/17 11:59 Colchicine (Colchicine Tab) 0.6 mg BID PO 07/06/17 21:00 08/05/17 20:59 07/08/17 08:38 0.6 MG Lisinopril (Zestril Tab) 20 mg DAILY PO 07/07/17 09:00 08/06/17 08:59 07/08/17 08:34 20 MG Miconazole Nitrate (Desenex Powder) 1 appln PRN PRN EXT 07/06/17 12:00 08/05/17 11:59 Pantoprazole Sodium (Protonix Tab) 40 mg BID PO 07/06/17 21:00 08/05/17 20:59 07/08/17 08:34 40 MG Ranitidine HCl (zANTac TAB) 150 mg BID PO 07/06/17 21:00 08/05/17 20:59 07/08/17 08:34 150 MG Rosuvastatin Calcium (Crestor Tab) 20 mg DAILY PO 07/07/17 09:00 08/06/17 08:59 07/08/17 08:42 20 MG Sucralfate (Carafate Susp) 1 gm QID PO 07/06/17 13:00 08/05/17 12:59 07/08/17 12:08 1 GM Warfarin Sodium (Coumadin Tab) 6 mg SuMoTuWeThSa@1600 PO 07/06/17 16:00 08/05/17 15:59 07/07/17 17:15 6 MG Cholecalciferol (Vitamin D Tab) 2,000 inter.unit QAM PO 07/07/17 09:00 08/06/17 08:59 07/08/17 08:35 2,000 INTER.UNIT Piperacillin Sod/ Tazobactam Sod 3.375 gm/Dextrose 115 ml @ 28.75 mls/ hr Q8H IV 07/06/17 16:00 07/13/17 15:59 07/08/17 08:33 28.75 MLS/HR Levofloxacin 500 mg/Prmx 100 ml @ 100 mls/hr Q24H IV 07/06/17 15:00 07/13/17 14:59 07/07/17 15:10 100 MLS/HR Guaifenesin (Mucinex Contr Rel Tab) 600 mg BID PO 07/06/17 21:00 08/05/17 20:59 07/08/17 08:33 600 MG Ipratropium [place] (Atrovent 0.02% 0.5MG/2.5ML Neb) 0.5 mg Q6R INH 07/06/17 15:00 08/05/17 14:59 07/08/17 07:08 0.5 MG Levalbuterol (Xopenex 1.25MG/ 0.5ML Neb) 1.25 mg Q6R INH 07/06/17 15:00 08/05/17 14:59 07/08/17 07:08 1.25 MG Piperacillin Sod/ Tazobactam Sod (Consult) 1 ea UD PRN N/A 07/06/17 14:30 08/05/17 14:29 Warfarin Sodium (Coumadin Tab) 4.5 mg Fr@1600 PO 07/11/17 16:00 08/10/17 15:59 Clonazepam (Klonopin Tab) 0.5 mg DAILY@2200 PO 07/06/17 22:00 08/05/17 21:59 07/07/17 22:20 0.5 MG Mirtazapine (Remeron Tab) 15 mg DAILY@2200 PO 07/06/17 22:00 08/05/17 21:59 07/07/17 22:20 15 MG Ibuprofen (Advil Tab) 400 mg TID PO 07/07/17 14:00 08/06/17 13:59 07/08/17 08:38 400 MG Oxycodone HCl (Roxicodone Immediate Rel Tab) 5 mg Q4 PRN PO 07/07/17 10:30 07/21/17 10:29 Sodium Chloride ([place] Nasal [place]) 1 sprays PRN PRN NA 07/07/17 17:00 08/06/17 16:59 Menthol (Nice [place]iy[place]) 1 aniyah PRN PRN PO 07/07/17 19:45 08/06/17 19:44 Lab Results: 07/08/17 05:20 Red Blood Count 3.26, Mean Corpuscular Volume 85.9, Mean Corpuscular Hemoglobin 26.1, Mean Corpuscular Hemoglobin Concent 30.4, Mean Platelet Volume 10.2, Neutrophils (%) (Auto) 56.1, Lymphocytes (%) (Auto) 28.5, Monocytes (%) (Auto) 11.9, Eosinophils (%) (Auto) 2.8, Basophils (%) (Auto) 0.5, Neutrophils # (Auto ) 3.38, Lymphocytes # (Auto) 1.72, Monocytes # (Auto) 0.72, Eosinophils # (Auto ) 0.17, Basophils # (Auto) 0.03 07/08/17 05:20 Test 07/08/17 05:20 07/08/17 13:22 White Blood Count 6.03 K/uL (4.8-10.8) Red Blood Count 3.26 M/uL (4.2-5.4) Hemoglobin 8.5 g/dL (12.0-16.0) Hematocrit 28.0 % (37-47) Mean Corpuscular Volume 85.9 fL (80-100) Mean Corpuscular Hemoglobin 26.1 pg (25-34) Mean Corpuscular Hemoglobin Concent 30.4 g/dl (32-36) Platelet Count 277 K/uL (130-400) Mean Platelet Volume 10.2 fL (7.4-10.4) Neutrophils (%) (Auto) 56.1 % Lymphocytes (%) (Auto) 28.5 % Monocytes (%) (Auto) 11.9 % Eosinophils (%) (Auto) 2.8 % Basophils (%) (Auto) 0.5 % Neutrophils # (Auto) 3.38 K/uL (1.4-6.5) Lymphocytes # (Auto) 1.72 K/uL (1.2-3.4) Monocytes # (Auto) 0.72 K/uL (0.11-0.59) Eosinophils # (Auto) 0.17 K/uL (0-0.5) Basophils # (Auto) 0.03 K/uL (0-0.2) RDW Standard Deviation 53.9 fL (36.4-46.3) RDW Coefficient of Variation 17.2 % (11.5-14.5) Immature Granulocyte % (Auto) 0.2 % Immature Granulocyte # (Auto) 0.01 K/uL (0.00-0.02) Polychromasia 1+ Prothrombin Time 30.3 SECONDS (9.0-12.0) Prothromb Time International Ratio 2.7 (0.9-1.1) Est Creatinine Clear Calc Drug Dose 60.3 ml/min Estimated GFR () 69.8 Estimated GFR (Non- 60.3
[2017-07-08] MEDS ORDERED: VANCOMYCIN TROUGH SCH (15:30)
[2017-07-08] MEDS: LEVOFLOXACIN / D5W 500 MG in PREMIXED IN D5W 100 ML IV SCH (15:55)
--- NOTE | 2017-07-08 16:00 | Progress Note ---
Subjective Date of Service: Jul 08, 2017. Subjective Pt evaluation today including: conversation w/ patient, physical exam, lab review, review of inpatient medication list Pain: mild pain PO Intake: improving Voiding: no voiding problems patient still feeling weak and with intermittent chest pain breathing better today discussed using pain medications, she is refusing but yet still has pain agrees to trying Ultram instead of Oxycodone Problem List Medical Problems: (1) Abdominal pain Status: Acute (2) Acute diverticulitis Status: Acute (3) Back pain Status: Acute (4) Bilateral pleural effusion Status: Acute (5) Gastritis Status: Acute (6) Hypokalemia Status: Acute (7) Mild dehydration Status: Acute (8) Pleural effusion Status: Acute (9) Pulmonary emboli Status: Acute (10) Shortness of breath Status: Acute (11) Shortness of breath Status: Acute Review of Systems Constitutional: + weakness, + fatigue Respiratory: + shortness of breath Cardiac: + chest pain All Other Systems: Reviewed and Negative Medications Current Inpatient Medications Medications (Trade) Dose Ordered Sig/[place] Route Start Time Stop Time Status Last Admin Dose Admin Acetaminophen (Tylenol Tab) 650 mg Q4H PRN PO 07/06/17 12:00 08/05/17 11:59 07/07/17 08:40 650 MG Nitroglycerin (Nitrostat Tab) 0.4 mg UD PRN SL 07/06/17 12:00 08/05/17 11:59 Aspirin (Ecotrin Tab) 81 mg QAM PO 07/07/17 09:00 08/06/17 08:59 07/08/17 08:39 81 MG Baclofen (Lioresal Tab) 10 mg BID PO 07/06/17 21:00 08/05/17 20:59 07/08/17 08:33 10 MG Carvedilol (Coreg Tab) 3.125 mg BID PO 07/06/17 21:00 08/05/17 20:59 07/08/17 08:35 3.125 MG Clonazepam (Klonopin Tab) 0.25 mg DAILY PRN PO 07/06/17 12:00 08/05/17 11:59 Colchicine (Colchicine Tab) 0.6 mg BID PO 07/06/17 21:00 08/05/17 20:59 07/08/17 08:38 0.6 MG Lisinopril (Zestril Tab) 20 mg DAILY PO 07/07/17 09:00 08/06/17 08:59 07/08/17 08:34 20 MG Miconazole Nitrate (Desenex Powder) 1 appln PRN PRN EXT 07/06/17 12:00 08/05/17 11:59 Pantoprazole Sodium (Protonix Tab) 40 mg BID PO 07/06/17 21:00 08/05/17 20:59 07/08/17 08:34 40 MG Ranitidine HCl (zANTac TAB) 150 mg BID PO 07/06/17 21:00 08/05/17 20:59 07/08/17 08:34 150 MG Rosuvastatin Calcium (Crestor Tab) 20 mg DAILY PO 07/07/17 09:00 08/06/17 08:59 07/08/17 08:42 20 MG Sucralfate (Carafate Susp) 1 gm QID PO 07/06/17 13:00 08/05/17 12:59 07/08/17 12:08 1 GM Warfarin Sodium (Coumadin Tab) 6 mg SuMoTuWeThSa@1600 PO 07/06/17 16:00 08/05/17 15:59 07/07/17 17:15 6 MG Cholecalciferol (Vitamin D Tab) 2,000 inter.unit QAM PO 07/07/17 09:00 08/06/17 08:59 07/08/17 08:35 2,000 INTER.UNIT Piperacillin Sod/ Tazobactam Sod 3.375 gm/Dextrose 115 ml @ 28.75 mls/ hr Q8H IV 07/06/17 16:00 07/13/17 15:59 07/08/17 08:33 28.75 MLS/HR Levofloxacin 500 mg/Prmx 100 ml @ 100 mls/hr Q24H IV 07/06/17 15:00 07/13/17 14:59 07/07/17 15:10 100 MLS/HR Guaifenesin (Mucinex Contr Rel Tab) 600 mg BID PO 07/06/17 21:00 08/05/17 20:59 07/08/17 08:33 600 MG Ipratropium [place] (Atrovent 0.02% 0.5MG/2.5ML Neb) 0.5 mg Q6R INH 07/06/17 15:00 08/05/17 14:59 07/08/17 14:03 0.5 MG Levalbuterol (Xopenex 1.25MG/ 0.5ML Neb) 1.25 mg Q6R INH 07/06/17 15:00 08/05/17 14:59 07/08/17 14:03 1.25 MG Piperacillin Sod/ Tazobactam Sod (Consult) 1 ea UD PRN N/A 07/06/17 14:30 08/05/17 14:29 Warfarin Sodium (Coumadin Tab) 4.5 mg Fr@1600 PO 07/11/17 16:00 08/10/17 15:59 Clonazepam (Klonopin Tab) 0.5 mg DAILY@2200 PO 07/06/17 22:00 08/05/17 21:59 07/07/17 22:20 0.5 MG Mirtazapine (Remeron Tab) 15 mg DAILY@2200 PO 07/06/17 22:00 08/05/17 21:59 07/07/17 22:20 15 MG Ibuprofen (Advil Tab) 400 mg TID PO 07/07/17 14:00 08/06/17 13:59 07/08/17 08:38 400 MG Sodium Chloride ([place] Nasal [place]) 1 sprays PRN PRN NA 07/07/17 17:00 08/06/17 16:59 Menthol (Nice Aniyah) 1 aniyah PRN PRN PO 07/07/17 19:45 08/06/17 19:44 Tramadol HCl (Ultram Tab) 50 mg Q4H PRN PO 07/08/17 14:30 08/07/17 14:29 Objective Vital Signs Date Time Temp Pulse Resp B/P (MAP) Pulse Ox O2 Delivery O2 Flow Rate FiO2 07/08/17 14:05 74 16 98 Room Air 07/08/17 08:00 97 Room Air 07/08/17 07:10 68 16 98 Nasal Cannula 2.0 07/08/17 07:08 36.4 68 16 149/85 (106) 97 2.0 07/08/17 01:30 64 16 98 Nasal Cannula 2.0 07/08/17 00:16 Nasal Cannula 2.0 07/08/17 00:05 36.4 70 20 122/80 (94) 97 Nasal Cannula 2.0 07/07/17 21:15 Nasal Cannula 2.0 07/07/17 19:40 78 16 96 Room Air 07/07/17 19:30 36.5 74 18 152/85 (107) 93 Room Air 07/07/17 16:30 Nasal Cannula 2.0 Physical Exam General Appearance: WD/WN, no apparent distress Eyes: normal inspection, EOMI, sclerae normal ENT: normal ENT inspection, hearing grossly normal, pharynx normal Neck: supple, no adenopathy, no JVD, trachea midline Respiratory/Chest: chest non-tender, lungs clear, normal breath sounds, no respiratory distress, no accessory muscle use Cardiovascular: regular rate, rhythm, no edema, no gallop, no JVD, no murmur Abdomen: normal bowel sounds, non tender, soft, no organomegaly Extremities: normal range of motion, non-tender, normal inspection, no pedal edema, no calf tenderness, pelvis stable Neurologic/Psychiatric: material control clerk II-XII nml as tested, no motor/sensory deficits, alert, oriented x 3, + depressed affect Skin: normal color, warm/dry, no rash Lymphatic: no adenopathy Laboratory Results Last 24 Hours Test 07/08/17 05:20 White Blood Count 6.03 K/uL Red Blood Count 3.26 M/uL Hemoglobin 8.5 g/dL Hematocrit 28.0 % Mean Corpuscular Volume 85.9 fL Mean Corpuscular Hemoglobin 26.1 pg Mean Corpuscular Hemoglobin Concent 30.4 g/dl Platelet Count 277 K/uL Mean Platelet Volume 10.2 fL Neutrophils (%) (Auto) 56.1 % Lymphocytes (%) (Auto) 28.5 % Monocytes (%) (Auto) 11.9 % Eosinophils (%) (Auto) 2.8 % Basophils (%) (Auto) 0.5 % Neutrophils # (Auto) 3.38 K/uL Lymphocytes # (Auto) 1.72 K/uL Monocytes # (Auto) 0.72 K/uL Eosinophils # (Auto) 0.17 K/uL Basophils # (Auto) 0.03 K/uL RDW Standard Deviation 53.9 fL RDW Coefficient of Variation 17.2 % Immature Granulocyte % (Auto) 0.2 % Immature Granulocyte # (Auto) 0.01 K/uL Polychromasia 1+ Prothrombin Time 30.3 SECONDS Prothromb Time International Ratio 2.7 Creatinine 0.95 mg/dl Est Creatinine Clear Calc Drug Dose 60.3 ml/min Estimated GFR () 69.8 Estimated GFR (Non- 60.3 C-Reactive Protein 8.03 mg/dl Assessment and Plan - Pleural effusions: possibly due to pneumonia, WBC is down to 6k from 13k on admission, no fever, no cough continue empiric antibiotics for now, leaning towards treating for full 5-7 days now, change to PO tomorrow - Pericarditis, pericardial effusion: continue ibuprofen 400mg TID, Colchicine BID Ultram PRN for pain Continue carvedilol 3.125 mg by mouth twice a day, aspirin 81 mg by mouth every morning, lisinopril 10 mg by mouth every morning and warfarin. appreciate cardiology consult GERD/Smith's esophagus-- Continue pantoprazole 40 mg by mouth twice a day, ranitidine 150 mg by mouth twice a day, and sucralfate 1 g by mouth 4 times a day. Hyperlipidemia-- Continue rosuvastatin 20 mg by mouth daily. Anxiety/depression/insomnia-- Continue mirtazapine 15 mg by mouth every evening and clonazepam 0.5 mg by mouth at bedtime. Next Muscle spasm-- Continue baclofen 10 mg by mouth twice a day PT/OT consults
[2017-07-08] MEDS: TRAMADOL HCL 50 MG TAB PO PRN ×2 (16:10→20:59)
[2017-07-08] MEDS: WARFARIN SOD 6 MG TAB PO SCH (16:12)
[2017-07-08] MEDS ORDERED: ONDANSETRON INJ 2 MG/ML 2 ML VIAL IV PRN (16:45)
[2017-07-08] MEDS: CLONAZEPAM 0.5 MG TAB PO SCH (22:33)
[2017-07-08] MEDS: MIRTAZAPINE TAB 15 MG TAB PO SCH (22:33)
[2017-07-09] VITALS (9 sets, daily range): BP systolic 138–167; BP diastolic 81–90; PULSE 62–75; TEMP 36.3–36.5; O2SAT 95–98
[2017-07-09] MEDS: PIPERACILL/TAZOBAC IV 3.375 GM in DEXTROSE 5% 100ML 100 ML IV SCH ×2 (00:05→07:35)
[2017-07-09] MEDS: IPRATROPIUM BROMIDE NEB SOLN 0.02% 2.5 ML VIAL INH SCH ×4 (02:02→20:11)
[2017-07-09] MEDS: LEVALBUTEROL 1.25MG/0.5ML NEB INH SCH ×4 (02:02→20:11)
[2017-07-09 06:24] LABS: INR 3.3 (0.9-1.1); PROTHROMBIN TIME (PATIENT) 36.6 SECONDS (9.0-12.0)
[2017-07-09 06:41] LABS: CREATININE 1.1 mg/dl (0.60-1.20)
[2017-07-09] MEDS: SUCRALFATE 1 GM/10 ML UDC PO SCH ×4 (07:35→19:51)
[2017-07-09] MEDS: CARVEDILOL 3.125 MG TAB PO SCH ×2 (07:35→19:52)
[2017-07-09] MEDS: COLCHICINE 0.6 MG TAB PO SCH ×2 (07:35→19:51)
[2017-07-09] MEDS: ROSUVASTATIN CALCIUM 20 MG TAB PO SCH (07:35)
[2017-07-09] MEDS: CHOLECALCIFEROL 1000 INTER.UNIT TAB PO SCH (07:35)
[2017-07-09] MEDS: BACLOFEN 10 MG TAB PO SCH ×2 (07:36→19:50)
[2017-07-09] MEDS: IBUPROFEN 200 MG TAB PO SCH ×3 (07:36→19:51)
[2017-07-09] MEDS: LISINOPRIL 20 MG TAB PO SCH (07:36)
[2017-07-09] MEDS: GUAIFENESIN 600 MG TABCR PO SCH ×2 (07:36→19:53)
[2017-07-09] MEDS: ASPIRIN 81 MG ECTAB PO SCH (07:36)
[2017-07-09] MEDS: RANITIDINE HCL 150 MG TAB PO SCH ×2 (07:36→19:53)
[2017-07-09] MEDS: PANTOprazole SOD 40 MG TAB PO SCH ×2 (07:36→19:53)
[2017-07-09] MEDS: TRAMADOL HCL 50 MG TAB PO PRN ×4 (07:41→20:56)
--- NOTE | 2017-07-09 10:01 | Progress Note ---
Subjective Date of Service: Jul 09, 2017. Subjective Pt evaluation today including: conversation w/ patient, physical exam, lab review, review of inpatient medication list Pain: less pain today with Ultram PO Intake: improving Voiding: no voiding problems patient feels slightly better, still very weak, not evaluated by therapy yet patient concerned about going home, she has bounced back twice recently reviewed labs, stable we will change to PO antibiotics today plan for discharge tomorrow patient would be interested in rehab at [facility], but last time her insurance would not pay Problem List Medical Problems: (1) Abdominal pain Status: Acute (2) Acute diverticulitis Status: Acute (3) Back pain Status: Acute (4) Bilateral pleural effusion Status: Acute (5) Gastritis Status: Acute (6) Hypokalemia Status: Acute (7) Mild dehydration Status: Acute (8) Pleural effusion Status: Acute (9) Pulmonary emboli Status: Acute (10) Shortness of breath Status: Acute (11) Shortness of breath Status: Acute Review of Systems Constitutional: + weakness, + fatigue Respiratory: + cough Cardiac: + chest pain All Other Systems: Reviewed and Negative Medications Current Inpatient Medications Medications (Trade) Dose Ordered Sig/[place] Route Start Time Stop Time Status Last Admin Dose Admin Acetaminophen (Tylenol Tab) 650 mg Q4H PRN PO 07/06/17 12:00 08/05/17 11:59 07/07/17 08:40 650 MG Nitroglycerin (Nitrostat Tab) 0.4 mg UD PRN SL 07/06/17 12:00 08/05/17 11:59 Aspirin (Ecotrin Tab) 81 mg QAM PO 07/07/17 09:00 08/06/17 08:59 07/09/17 07:36 81 MG Baclofen (Lioresal Tab) 10 mg BID PO 07/06/17 21:00 08/05/17 20:59 07/09/17 07:36 10 MG Carvedilol (Coreg Tab) 3.125 mg BID PO 07/06/17 21:00 08/05/17 20:59 07/09/17 07:35 3.125 MG Clonazepam (Klonopin Tab) 0.25 mg DAILY PRN PO 07/06/17 12:00 08/05/17 11:59 Colchicine (Colchicine Tab) 0.6 mg BID PO 07/06/17 21:00 08/05/17 20:59 07/09/17 07:35 0.6 MG Lisinopril (Zestril Tab) 20 mg DAILY PO 07/07/17 09:00 08/06/17 08:59 07/09/17 07:36 20 MG Miconazole Nitrate (Desenex Powder) 1 appln PRN PRN EXT 07/06/17 12:00 08/05/17 11:59 Pantoprazole Sodium (Protonix Tab) 40 mg BID PO 07/06/17 21:00 08/05/17 20:59 07/09/17 07:36 40 MG Ranitidine HCl (zANTac TAB) 150 mg BID PO 07/06/17 21:00 08/05/17 20:59 07/09/17 07:36 150 MG Rosuvastatin Calcium (Crestor Tab) 20 mg DAILY PO 07/07/17 09:00 08/06/17 08:59 07/09/17 07:35 20 MG Sucralfate (Carafate Susp) 1 gm QID PO 07/06/17 13:00 08/05/17 12:59 07/09/17 07:35 1 GM Warfarin Sodium (Coumadin Tab) 6 mg SuMoTuWeThSa@1600 PO 07/06/17 16:00 08/05/17 15:59 07/08/17 16:12 6 MG Cholecalciferol (Vitamin D Tab) 2,000 inter.unit QAM PO 07/07/17 09:00 08/06/17 08:59 07/09/17 07:35 2,000 INTER.UNIT Piperacillin Sod/ Tazobactam Sod 3.375 gm/Dextrose 115 ml @ 28.75 mls/ hr Q8H IV 07/06/17 16:00 07/13/17 15:59 07/09/17 07:35 28.75 MLS/HR Levofloxacin 500 mg/Prmx 100 ml @ 100 mls/hr Q24H IV 07/06/17 15:00 07/13/17 14:59 07/08/17 15:55 100 MLS/HR Guaifenesin (Mucinex Contr Rel Tab) 600 mg BID PO 07/06/17 21:00 08/05/17 20:59 07/09/17 07:36 600 MG Ipratropium [place] (Atrovent 0.02% 0.5MG/2.5ML Neb) 0.5 mg Q6R INH 07/06/17 15:00 08/05/17 14:59 07/09/17 07:03 0.5 MG Levalbuterol (Xopenex 1.25MG/ 0.5ML Neb) 1.25 mg Q6R INH 07/06/17 15:00 08/05/17 14:59 07/09/17 07:04 1.25 MG Piperacillin Sod/ Tazobactam Sod (Consult) 1 ea UD PRN N/A 07/06/17 14:30 08/05/17 14:29 Warfarin Sodium (Coumadin Tab) 4.5 mg Fr@1600 PO 07/11/17 16:00 08/10/17 15:59 Clonazepam (Klonopin Tab) 0.5 mg DAILY@2200 PO 07/06/17 22:00 08/05/17 21:59 07/08/17 22:33 0.5 MG Mirtazapine (Remeron Tab) 15 mg DAILY@2200 PO 07/06/17 22:00 08/05/17 21:59 07/08/17 22:33 15 MG Ibuprofen (Advil Tab) 400 mg TID PO 07/07/17 14:00 08/06/17 13:59 07/09/17 07:36 400 MG Sodium Chloride ([place]isa Nasal [place]) 1 sprays PRN PRN NA 07/07/17 17:00 08/06/17 16:59 Menthol (Nice Aniyah) 1 aniyah PRN PRN PO 07/07/17 19:45 08/06/17 19:44 Tramadol HCl (Ultram Tab) 50 mg Q4H PRN PO 07/08/17 14:30 08/07/17 14:29 07/09/17 07:41 50 MG Ondansetron HCl (Zofran Inj) 4 mg Q6H PRN IV 07/08/17 16:45 08/07/17 16:44 07/08/17 16:57 4 MG Objective Vital Signs Date Time Temp Pulse Resp B/P (MAP) Pulse Ox O2 Delivery O2 Flow Rate FiO2 07/09/17 07:18 36.5 64 18 138/81 (100) 95 Room Air 07/09/17 07:04 71 16 95 Room Air 07/09/17 02:02 68 16 98 Room Air 07/09/17 01:40 Room Air 07/08/17 23:49 36.3 66 18 120/76 (91) 94 Room Air 07/08/17 22:10 Room Air 07/08/17 19:08 78 16 99 Room Air 07/08/17 16:00 97 Room Air 07/08/17 14:05 74 16 98 Room Air Physical Exam General Appearance: WD/WN, no apparent distress Neck: supple, no adenopathy, no JVD, trachea midline Respiratory/Chest: chest non-tender, lungs clear, no respiratory distress, no accessory muscle use, + decreased breath sounds (bases) Cardiovascular: regular rate, rhythm, no edema, no gallop, no JVD, no murmur Abdomen: normal bowel sounds, non tender, soft, no organomegaly Extremities: normal range of motion, non-tender, normal inspection, no pedal edema, no calf tenderness, pelvis stable 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, alert, oriented x 3, + motor weakness (generalized), + depressed affect Skin: normal color, warm/dry, no rash Lymphatic: no adenopathy Laboratory Results Last 24 Hours Test 07/09/17 05:47 Prothrombin Time 36.6 SECONDS Prothromb Time International Ratio 3.3 Creatinine 1.10 mg/dl Est Creatinine Clear Calc Drug Dose 52.5 ml/min Estimated GFR () 58.5 Estimated GFR (Non- 50.5 Assessment and Plan - Pleural effusions: possibly due to pneumonia, WBC is down to 6k from 13k on admission, no fever, no cough treated with Zosyn and Levaquin IV for 2 days, will switch to Levaquin 500mg PO daily on 07/09 complete 7 days total - Pericarditis, pericardial effusion: continue ibuprofen 400mg TID, Colchicine BID Ultram PRN for pain, helping today Continue carvedilol 3.125 mg by mouth twice a day, aspirin 81 mg by mouth every morning, lisinopril 10 mg by mouth every morning and warfarin. appreciate cardiology consult - Recent cardiac thrombus: INR 3.3 today, decrease Coumadin to 5mg daily except Friday with 4.5mg no evidence of thrombus on most recent echo GERD/Smith's esophagus-- Continue pantoprazole 40 mg by mouth twice a day, ranitidine 150 mg by mouth twice a day, and sucralfate 1 g by mouth 4 times a day. Hyperlipidemia-- Continue rosuvastatin 20 mg by mouth daily. Anxiety/depression/insomnia-- Continue mirtazapine 15 mg by mouth every evening and clonazepam 0.5 mg by mouth at bedtime. Next Muscle spasm-- Continue baclofen 10 mg by mouth twice a day PT/OT consults still pending, will look into rehab but if not approved then go home with home services
[2017-07-09] MEDS: LEVOFLOXACIN 500 MG TAB PO SCH (11:18)
[2017-07-09] MEDS ORDERED: ONDANSETRON 4MG OD TAB PO PRN (14:45)
[2017-07-09] MEDS ORDERED: NURSING VERBAL MED ORDER ONE ×2 (14:45)
[2017-07-09] MEDS: WARFARIN SOD 5 MG TAB PO SCH (16:11)
[2017-07-09] MEDS: CLONAZEPAM 0.5 MG TAB PO SCH (22:15)
[2017-07-09] MEDS: MIRTAZAPINE TAB 15 MG TAB PO SCH (22:15)
[2017-07-10] VITALS (11 sets, daily range): BP systolic 161–205; BP diastolic 75–115; PULSE 71–80; TEMP 36.4–36.5; O2SAT 94–97
[2017-07-10] MEDS: LEVALBUTEROL 1.25MG/0.5ML NEB INH SCH ×4 (01:53→19:22)
[2017-07-10] MEDS: IPRATROPIUM BROMIDE NEB SOLN 0.02% 2.5 ML VIAL INH SCH ×4 (01:53→19:22)
[2017-07-10] MEDS: CARVEDILOL 3.125 MG TAB PO SCH ×2 (07:23→20:48)
[2017-07-10] MEDS: ASPIRIN 81 MG ECTAB PO SCH (07:24)
[2017-07-10] MEDS: GUAIFENESIN 600 MG TABCR PO SCH ×2 (07:24→20:46)
[2017-07-10] MEDS: COLCHICINE 0.6 MG TAB PO SCH ×2 (07:24→20:47)
[2017-07-10] MEDS: CHOLECALCIFEROL 1000 INTER.UNIT TAB PO SCH (07:24)
[2017-07-10] MEDS: PANTOprazole SOD 40 MG TAB PO SCH ×2 (07:24→20:49)
[2017-07-10] MEDS: IBUPROFEN 200 MG TAB PO SCH ×3 (07:24→20:47)
[2017-07-10] MEDS: ROSUVASTATIN CALCIUM 20 MG TAB PO SCH (07:24)
[2017-07-10] MEDS: LISINOPRIL 20 MG TAB PO SCH (07:25)
[2017-07-10] MEDS: SUCRALFATE 1 GM/10 ML UDC PO SCH ×4 (07:25→20:46)
[2017-07-10] MEDS: RANITIDINE HCL 150 MG TAB PO SCH ×2 (07:25→20:46)
[2017-07-10] MEDS: LEVOFLOXACIN 500 MG TAB PO SCH (07:25)
[2017-07-10] MEDS: BACLOFEN 10 MG TAB PO SCH ×2 (07:25→20:46)
[2017-07-10] MEDS ORDERED: LISINOPRIL 20 MG TAB PO SCH (14:00)
[2017-07-10] MEDS ORDERED: LORAZEPAM 1 MG TAB PO ONE (14:00)
[2017-07-10] MEDS: WARFARIN SOD 5 MG TAB PO SCH (15:52)
--- NOTE | 2017-07-10 16:29 | Progress Note ---
Subjective Date of Service: Jul 10, 2017. Subjective Pt evaluation today including: conversation w/ patient, conversation w/ family , physical exam, lab review, review of inpatient medication list Pain: less pain today PO Intake: adequate Voiding: no voiding problems less paint today, taking Ultram PRN BP elevated, unknown why, perhaps anxiety given extra dose of Lisinopril, only mild improvement also, gave Ativan for anxiety long talk with patient, plan for d/c tomorrow Problem List Medical Problems: (1) Abdominal pain Status: Acute (2) Acute diverticulitis Status: Acute (3) Back pain Status: Acute (4) Bilateral pleural effusion Status: Acute (5) Gastritis Status: Acute (6) Hypokalemia Status: Acute (7) Mild dehydration Status: Acute (8) Pleural effusion Status: Acute (9) Pulmonary emboli Status: Acute (10) Shortness of breath Status: Acute (11) Shortness of breath Status: Acute Review of Systems Constitutional: + weakness, + fatigue Cardiac: + chest pain Psychiatric: + anxiety All Other Systems: Reviewed and Negative Medications Current Inpatient Medications Medications (Trade) Dose Ordered Sig/[place] Route Start Time Stop Time Status Last Admin Dose Admin Acetaminophen (Tylenol Tab) 650 mg Q4H PRN PO 07/06/17 12:00 08/05/17 11:59 07/07/17 08:40 650 MG Nitroglycerin (Nitrostat Tab) 0.4 mg UD PRN SL 07/06/17 12:00 08/05/17 11:59 Aspirin (Ecotrin Tab) 81 mg QAM PO 07/07/17 09:00 08/06/17 08:59 07/10/17 07:24 81 MG Baclofen (Lioresal Tab) 10 mg BID PO 07/06/17 21:00 08/05/17 20:59 07/10/17 07:25 10 MG Carvedilol (Coreg Tab) 3.125 mg BID PO 07/06/17 21:00 08/05/17 20:59 07/10/17 07:23 3.125 MG Clonazepam (Klonopin Tab) 0.25 mg DAILY PRN PO 07/06/17 12:00 08/05/17 11:59 07/10/17 07:38 0.25 MG Colchicine (Colchicine Tab) 0.6 mg BID PO 07/06/17 21:00 08/05/17 20:59 07/10/17 07:24 0.6 MG Miconazole Nitrate (Desenex Powder) 1 appln PRN PRN EXT 07/06/17 12:00 08/05/17 11:59 Pantoprazole Sodium (Protonix Tab) 40 mg BID PO 07/06/17 21:00 08/05/17 20:59 07/10/17 07:24 40 MG Ranitidine HCl (zANTac TAB) 150 mg BID PO 07/06/17 21:00 08/05/17 20:59 07/10/17 07:25 150 MG Rosuvastatin Calcium (Crestor Tab) 20 mg DAILY PO 07/07/17 09:00 08/06/17 08:59 07/10/17 07:24 20 MG Sucralfate (Carafate Susp) 1 gm QID PO 07/06/17 13:00 08/05/17 12:59 07/10/17 15:52 1 GM Cholecalciferol (Vitamin D Tab) 2,000 inter.unit QAM PO 07/07/17 09:00 08/06/17 08:59 07/10/17 07:24 2,000 INTER.UNIT Guaifenesin (Mucinex Contr Rel Tab) 600 mg BID PO 07/06/17 21:00 08/05/17 20:59 07/10/17 07:24 600 MG Ipratropium [place] (Atrovent 0.02% 0.5MG/2.5ML Neb) 0.5 mg Q6R INH 07/06/17 15:00 08/05/17 14:59 07/10/17 14:15 0.5 MG Levalbuterol (Xopenex 1.25MG/ 0.5ML Neb) 1.25 mg Q6R INH 07/06/17 15:00 08/05/17 14:59 07/10/17 14:15 1.25 MG Warfarin Sodium (Coumadin Tab) 4.5 mg Fr@1600 PO 07/11/17 16:00 08/10/17 15:59 Clonazepam (Klonopin Tab) 0.5 mg DAILY@2200 PO 07/06/17 22:00 08/05/17 21:59 07/09/17 22:15 0.5 MG Mirtazapine (Remeron Tab) 15 mg DAILY@2200 PO 07/06/17 22:00 08/05/17 21:59 07/09/17 22:15 15 MG Ibuprofen (Advil Tab) 400 mg TID PO 07/07/17 14:00 08/06/17 13:59 07/10/17 14:13 400 MG Sodium Chloride ([place] Nasal [place]) 1 sprays PRN PRN NA 07/07/17 17:00 08/06/17 16:59 Menthol (Nice Aniyah) 1 aniyah PRN PRN PO 07/07/17 19:45 08/06/17 19:44 Tramadol HCl (Ultram Tab) 50 mg Q4H PRN PO 07/08/17 14:30 08/07/17 14:29 07/09/17 20:56 50 MG Levofloxacin (Levaquin Tab) 500 mg DAILY@11 PO 07/09/17 11:00 07/13/17 10:59 07/10/17 07:25 500 MG Warfarin Sodium (Coumadin Tab) 5 mg SuMoTuWeThSa@1600 PO 07/09/17 16:00 08/05/17 15:59 07/10/17 15:52 5 MG Ondansetron HCl (Zofran Odt) 4 mg Q6H PRN PO 07/09/17 14:45 08/08/17 14:44 Lisinopril (Zestril Tab) 40 mg DAILY PO 07/11/17 08:00 08/06/17 08:59 Objective Vital Signs Date Time Temp Pulse Resp B/P (MAP) Pulse Ox O2 Delivery O2 Flow Rate FiO2 07/10/17 15:56 36.5 78 18 188/103 (131) 96 Room Air 179/77 (111) 07/10/17 14:45 72 94 07/10/17 14:16 71 16 97 Room Air 07/10/17 11:21 205/115 (145) 07/10/17 09:00 177/93 (121) 07/10/17 08:42 Room Air 07/10/17 07:36 180/100 (126) 07/10/17 07:15 36.5 80 16 202/102 (135) 96 Room Air 190/111 (137) 07/10/17 07:08 75 16 97 Room Air 07/10/17 01:53 78 16 97 Room Air 07/09/17 23:59 Room Air 07/09/17 23:59 36.3 62 20 153/84 (107) 95 Room Air 07/09/17 20:11 74 16 95 Room Air 07/09/17 19:49 73 163/90 (114) Physical Exam General Appearance: WD/WN, no apparent distress Eyes: normal inspection, EOMI, sclerae normal Neck: supple, no adenopathy, no JVD, trachea midline Respiratory/Chest: chest non-tender, lungs clear, normal breath sounds, no respiratory distress, no accessory muscle use Cardiovascular: regular rate, rhythm, no edema, no gallop, no JVD, no murmur Abdomen: normal bowel sounds, non tender, soft, no organomegaly Extremities: normal range of motion, non-tender, normal inspection, no pedal edema, no calf tenderness, pelvis stable 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 appreciate cardiology consult - Recent cardiac thrombus: INR 3.3 07/09, check INR tomorrow no evidence of thrombus on most recent echo - Uncontrolled HTN: unclear etiology, no severe pain, perhaps anxiety? but diastolic pressure up as well increase Lisinopril to 40mg daily, continue Coreg, PRN Hydralazine GERD/Smith's esophagus-- Continue pantoprazole 40 mg by mouth twice a day, ranitidine 150 mg by mouth twice a day, and sucralfate 1 g by mouth 4 times a day. Hyperlipidemia-- Continue rosuvastatin 20 mg by mouth daily. Anxiety/depression/insomnia-- Continue mirtazapine 15 mg by mouth every evening and clonazepam 0.5 mg by mouth at bedtime. Next Muscle spasm-- Continue baclofen 10 mg by mouth twice a day too good for rehab according to therapy plan for d/c to home tomorrow
[2017-07-10] MEDS: CLONAZEPAM 0.5 MG TAB PO SCH (22:41)
[2017-07-10] MEDS: MIRTAZAPINE TAB 15 MG TAB PO SCH (22:41)
[2017-07-11 02:19] VITALS: PULSE 77; O2SAT 96
[2017-07-11] MEDS: IPRATROPIUM BROMIDE NEB SOLN 0.02% 2.5 ML VIAL INH SCH ×2 (02:19→06:59)
[2017-07-11] MEDS: LEVALBUTEROL 1.25MG/0.5ML NEB INH SCH ×2 (02:19→07:00)
[2017-07-11 05:56] LABS: PROTHROMBIN TIME (PATIENT) 56.3 SECONDS (9.0-12.0)
[2017-07-11 06:07] LABS: INR 4.9 (0.9-1.1)
[2017-07-11 06:10] LABS: CREATININE 0.93 mg/dl (0.60-1.20)
[2017-07-11 07:00] VITALS: PULSE 80; O2SAT 97
[2017-07-11 07:21] VITALS: BP 173/97; PULSE 69; TEMP 36.4; O2SAT 99
[2017-07-11] MEDS: ASPIRIN 81 MG ECTAB PO SCH (07:39)
[2017-07-11] MEDS: COLCHICINE 0.6 MG TAB PO SCH (07:40)
[2017-07-11] MEDS: PANTOprazole SOD 40 MG TAB PO SCH (07:40)
[2017-07-11] MEDS: GUAIFENESIN 600 MG TABCR PO SCH (07:40)
[2017-07-11] MEDS: ROSUVASTATIN CALCIUM 20 MG TAB PO SCH (07:40)
[2017-07-11] MEDS: RANITIDINE HCL 150 MG TAB PO SCH (07:40)
[2017-07-11] MEDS: BACLOFEN 10 MG TAB PO SCH (07:41)
[2017-07-11] MEDS: IBUPROFEN 200 MG TAB PO SCH (07:41)
[2017-07-11] MEDS: CHOLECALCIFEROL 1000 INTER.UNIT TAB PO SCH (07:41)
[2017-07-11] MEDS: CARVEDILOL 3.125 MG TAB PO SCH (07:41)
[2017-07-11] MEDS: SUCRALFATE 1 GM/10 ML UDC PO SCH (07:42)
[2017-07-11] MEDS ORDERED: LISINOPRIL 40 MG TAB PO SCH (08:00)
[2017-07-11] MEDS ORDERED: AMLODIPINE BESYLATE 5 MG TAB PO ONE (08:15)
[2017-07-11] MEDS: LEVOFLOXACIN 500 MG TAB PO SCH (09:40)
[2017-07-11] MEDS: TRAMADOL HCL 50 MG TAB PO PRN (09:41)
[2017-07-11] MEDS ORDERED: IBUP-1050 PO (10:08)
[2017-07-11] MEDS ORDERED: LSN40 PO (10:08)
[2017-07-11] MEDS ORDERED: ULT50X PO (10:08)
[2017-07-11] MEDS ORDERED: AMLO-110 PO (10:08)
--- NOTE | 2017-07-11 10:17 | Discharge Instructions ---
Discharge Instructions Date of Service Jul 11, 2017. Admission Reason for Admission: Pericardial Effusion, Pneumonia Discharge Discharge Diagnosis / Problem: Pericardial effusion, pneumonia Discharge Goals Goal(s): Improve function, Improve disease control Activity Recommendations Activity Limitations: resume your previous activity Lifting Limitations: none Exercise/Sports Limitations: as tolerated May Resume Sexual Activity: when tolerated Shower/Bathe: no limitations Driving or Machine Use: no limitations . Instructions / Follow-Up Instructions / Follow-Up Medications: - LISINOPRIL: dose increased to 40mg daily from 20mg, new prescription sent, you can double up on 20mg tablets to finish last prescription if you desire - NORVASC: 5mg daily, new medication for blood pressure - ULTRAM: 50mg, can take every 4 hours as needed for pain control - IBUPROFEN: dose decreased to 400mg TID, continue this until instructed to stop by cardiology - COUMADIN: please hold on Friday, Friday and Friday and can resume prior dosing on Friday your INR is elevated due to the Levaquin (antibiotic) that you received Pneumonia: you completed 6 days of antibiotics which is sufficient to treat the pneumonia, no further antibiotics needed after discharge Pericardial effusion: continue to take Ibuprofen 400mg three times a day and Colchicine twice a day take Ultram as needed for pain follow up closely with Dr. Fuentes in two weeks you can take Imodium as needed for diarrhea related to the colchicine Hypertension: poorly controlled while in hospital, adjusted Lisinopril, increased to 40mg added Norvasc 5mg daily please follow up with Dr. Barker in office next week for blood pressure check Prior mural thrombus: no evidence of thrombus on echocardiogram this admission INR elevated, likely from Levaquin interaction with Coumadin hold Coumadin next three days and resume prior dosing on Friday follow up INR with Dr. Barker/Dr. Fuentes FOLLOW UP - Call for appointment next week with Dr. Barker - Call for appointment in two weeks with Dr. Fuentes Current Hospital Diet Patient's current hospital diet: AHA Diet (Heart Healthy) Discharge Diet Recommended Diet: AHA Diet (Heart Healthy) Pending Studies Studies pending at discharge: no Laboratory Results Hemoglobin A1c Test 05/28/17 06:32 Range/Units Estimated Average Glucose 120 mg/dl Hemoglobin A1c 5.8 H 4.5-5.6 % Medical Emergencies . Who to Call and When: Medical Emergencies: If at any time you feel your situation is an emergency, please call 911 immediately. . Non-Emergent Contact Non-Emergency issues call your: Primary Care Provider, Hand Singer Call Non-Emergent contact if: you have a fever, your pain is not controlled, your pain is worsening, you have any medication questions . . "Provider Documentation" section prepared by Zachariah Amaral. . VTE Core Measure Inpt VTE Proph given/why not?: Warfarin (Coumadin) [place] Drug Monitoring Program Search Results: no issues identified
[2017-07-11 10:24] VITALS: BP 173/97; PULSE 69; TEMP 36.4; O2SAT 99
[2017-07-11] MEDS ORDERED: WARFARIN TAB 2 MG, WARFARIN TAB 2.5 MG PO SCH ×2 (16:00)
--- NOTE | 2017-07-13 08:25 | Discharge Summary ---
Discharge Summary Date of Service Jul 11, 2017. Discharge Summary Admission Date: Jul 06, 2017 at 11:52 Discharge Date: Jul 11, 2017 Discharge Disposition: Home Principal Diagnosis: Pericarditis, percardial effusion Problems/Secondary Diagnoses: Pneumonia with parapneumonic effusions Anxiety HTN s/p AVR Immunizations: Have You Had Influenza Vaccine: Yes History of Tetanus Vaccine?: No History of Pneumococcal: Yes History of Hepatitis B Vaccine: No Procedures: none Consultations: Cardiology Medication Reconciliation New Medications: Amlodipine (Norvasc) 5 Mg Tab 5 MG PO DAILY for 30 Days, #30 TAB 3 Refills Ibuprofen (Advil) 200 Mg Tab 400 MG PO TID, #120 TAB 0 Refills Lisinopril (Lisinopril) 40 Mg Tab 40 MG PO DAILY, #30 TAB 3 Refills Tramadol HCl (Tramadol HCl) 50 Mg Tab 50 MG PO Q4H PRN for Pain, #60 TAB 0 Refills Continued Medications: Aspirin (Aspirin Ec) 81 Mg Tab 81 MG PO QAM Baclofen (Baclofen) 10 Mg Tab 10 MG PO BID Carvedilol (Carvedilol) 3.125 Mg Tab 3.125 MG PO BID TAKE THIS MEDICATION WITH MORNING AND EVENING MEALS Cholecalciferol (Vitamin D3) 2,000 Unit Cap 2000 INTER.UNIT PO DAILY, CAP Clonazepam (Klonopin) 0.5 Mg Tab 0.25 MG PO DAILY PRN for Anxiety/Agitation Clonazepam (Clonazepam) 0.5 Mg Tab 0.5 MG PO HS Colchicine (Colchicine) 0.6 Mg Tab 0.6 MG PO BID Miconazole Nitrate (Desenex Shake Powder) 43 Appln/43 Gm Powd 1 APPLN EXT PRN PRN for Affected Skin Folds for 30 Days Mirtazapine (Remeron) 15 Mg Tab 15 MG PO QPM, TAB Pantoprazole (Pantoprazole Sodium) 40 Mg Tab 40 MG PO BID Ranitidine Hcl (Zantac) 150 Mg Tab 150 MG PO BID Rosuvastatin Calcium (Rosuvastatin Calcium) 20 Mg Tab 20 MG PO DAILY Sucralfate (Sucralfate) 1 Gm/10 Ml Susp 1 GM PO QID for 30 Days, #700 ML Discontinued Medications: Ibuprofen (Ibuprofen) 600 Mg Tab 600 MG PO TID for 30 Days, #90 TAB Lisinopril (Prinivil) 20 Mg Tab 20 MG PO DAILY, TAB Warfarin Sod (Jantoven) 2 Mg Tab 4.5 MG PO FRIDAY, TAB Warfarin Sod (Jantoven) 6 Mg Tab 6 MG PO [id number], TAB Discharge Exam patient feeling better on day of discharge, less pain and when she did have pain it was controlled with Ultram. BP showing improvement with addition of Norvasc, discussed that this would be continued at home. Patient nervous about discharge, worried that she will need to come back. Gave detailed instructions , explained everything several times. Told her to use the medications as prescribed for pain. Assured her that she would be okay at home. Evaluated by therapy, she is independent and does not need rehab or even home therapy. Eating well, moving bowels, urinating well. Review of Systems: Constitutional: No fever, No chills, No sweats, No weight loss, No weakness , No fatigue, No problem reported Eyes: No worsening of vision, No eye pain, No redness, No discharge, No diplopia, No problem reported ENT: No hearing loss, No unusual epistaxis, No nasal symptoms, No sore throat, No tinnitus, No dental problems, No trouble swallowing, No problem reported Respiratory: No cough, No sputum, No wheezing, No shortness of breath, No dyspnea on exertion, No dyspnea at rest, No hemoptysis, No problem reported Cardiovascular: + chest pain (intermittent, central and left sided, relieved with Ultram), No orthopnea, No PND, No edema, No claudication, No palpitations, No problem reported Abdomen: No pain, No nausea, No vomiting, No diarrhea, No constipation, No GI bleeding, No problem reported Musculoskeletal: No joint pain, No muscle pain, No swelling, No calf pain, No problem reported Genitourinary - Female: No dysuria, No urinary frequency, No urinary urgency , No urinary incontinence Neurologic: No memory loss, No paralysis, No weakness, No numbness/tingling , No vertigo, No balance problems, No problem reported Psychiatric: No depression symptoms, No anhedonism, No anxiety, No insomnia , No substance abuse, No problem reported Endocrine: No fatigue, No excessive thirst, No excessive urination, No problem reported Hematologic / Lymphatic: No abnormal bleeding/bruising, No clotting problems , No swollen lymph nodes, No night sweats, No problem reported Integumentary: No rash, No itch, No new/changing skin lesions, No color change, No bleeding, No problem reported Physical Exam: General Appearance: no apparent distress, + obese Eyes: normal inspection, EOMI, sclerae normal ENT: normal ENT inspection, hearing grossly normal, pharynx normal Neck: supple, no adenopathy, no JVD, trachea midline Respiratory/Chest: chest non-tender, lungs clear, normal breath sounds, no respiratory distress, no accessory muscle use Cardiovascular: regular rate, rhythm, no edema, no gallop, no JVD, no murmur , normal peripheral pulses Abdomen / GI: normal bowel sounds, non tender, soft, no organomegaly Extremities: normal inspection, no calf tenderness, normal capillary refill , no pedal edema, normal range of motion, pelvis stable 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, no motor/sensory deficits , alert, normal mood/affect, normal reflexes, oriented x 3 Skin: normal color, warm/dry, no rash Hospital Course - bilateral Pleural effusions: possibly due to pneumonia, WBC is now normal, no fever, no cough completed 6 days of antibiotics while hospitalized, this is sufficient to treat pneumonia was treated with Levaquin no fever/chills, no cough, normal WBC during admission treatment based on CT findings of infiltrates - Pericarditis, pericardial effusion as a result of AVR: continue ibuprofen 400mg TID, Colchicine BID Ultram PRN for pain, working well Continue carvedilol 3.125 mg by mouth twice a day, aspirin 81 mg by mouth every morning, lisinopril 40 mg by mouth every morning appreciate cardiology consult - Recent cardiac thrombus: INR >4 on 07/11 most likely elevated due to interaction with Levaquin recommend holding Coumadin for three days and then resume prior dosing on no evidence of thrombus on most recent echo - Uncontrolled HTN: unclear etiology, no severe pain, perhaps anxiety? but diastolic pressure up as well better controlled after increasing Lisinopril to 40mg daily and adding Norvasc 5mg daily continue Coreg 3.125mg BID, HR in the 60's occasionally so little room to titrate up on Coreg GERD/Smith's esophagus-- Continue pantoprazole 40 mg by mouth twice a day, ranitidine 150 mg by mouth twice a day, and sucralfate 1 g by mouth 4 times a day. Hyperlipidemia-- Continue rosuvastatin 20 mg by mouth daily. Anxiety/depression/insomnia-- Continue mirtazapine 15 mg by mouth every evening and clonazepam 0.5 mg by mouth at bedtime. Next Muscle spasm-- Continue baclofen 10 mg by mouth twice a day too good for rehab according to therapy d/c to home Total Time Spent: Greater than 30 minutes This includes examination of the patient, discharge planning, medication reconciliation, and communication with other providers. Discharge Instructions Please refer to the electronic Patient Visit Report (Discharge Instructions) for additional information. Follow-Up Dr. Barker in one week, BP check Dr. Fuentes in two weeks for pericarditis follow up Additional Copies To Renzo Barker M.D.; Renzo Fuentes MD
== END 2017-07-11 11:30 | disposition home health service (06) | DRG 314 ==
LOC: C.EDB 07:25 → C.2E 11:52 → EDBEDREQ 12:06 → ENRESERV 12:23 → C.4E 07-07 12:19
PROVIDERS: ADMIT Hospitalist; ATTEND Internal Medicine
DX: I31.3 Pericardial effusion (noninflammatory) (principal); J18.9 Pneumonia, unspecified organism; J90 Pleural effusion, not elsewhere classified; I10 Essential (primary) hypertension; Z90.49 Acquired absence of other specified parts of digestive tract; Z87.01 Personal history of pneumonia (recurrent); Z82.49 Family history of ischemic heart disease and other diseases of the circulatory system; Z83.3 Family history of diabetes mellitus; Z83.6 Family history of other diseases of the respiratory system; Z83.79 Family history of other diseases of the digestive system; Z84.1 Family history of disorders of kidney and ureter

== ENCOUNTER 2017-07-13 10:28 | Emergency (ER) | payer BC ==
[~2017-07-13] VITALS: Ht 162.6 cm; Wt 96.3 kg
[~2017-07-13 10:28] MED LIST changes: +AMLO-110 PO; -CMD3 PO; +IBUP-1050 PO; -LSN20 PO; +LSN40 PO; -MTR600 PO; +ULT50X PO
[2017-07-13 10:36] VITALS: TEMP 36.7; Ht 162.6 cm; Wt 96.3 kg
[2017-07-13 11:18] VITALS: O2SAT 96
[2017-07-13] MEDS ORDERED: FLUC100T4 PO (11:29)
[2017-07-13] MEDS ORDERED: FLUCONAZOLE 50 MG TAB PO ONE (11:30)
[2017-07-13 11:45] VITALS: BP 159/98; PULSE 69; O2SAT 96
--- NOTE | 2017-07-13 11:46 | EMERGENCY ROOM VISIT NOTE ---
History Report prepared by Tristen: India Gallardo Under the Supervision of: Dr. Michell Orta M.D. First contact with patient: 10:53 Chief Complaint: OTHER COMPLAINT Stated Complaint: SWOLLEN TONGUE History of Present Illness The patient is a 72 year old female who presents to the Emergency Room with complaints of persistent tongue swelling starting yesterday. She had sprinkles of white on her tongue yesterday. She also had some bleeding from her tongue. The symptoms seemed to improve in the evening before coming back this morning. She has a burning sensation in her tongue. Her tongue feels thick. She denies any pain with swallowing, vaginal irritation, or vaginal discharge. She had an aortic valve replacement in April. She had blood clots following the surgery. She was on Levaquin, vancomycin, and Zosyn while in the hospital for potential pneumonia. She has a history of hypertension. Her lisinopril was increased to 40 mg recently. She took her Norvasc and lisinopril this morning around 0800. She does not have dentures. She denies any history of kidney problems. She is not on a water pill. She was on HCTZ, but was taken off because her blood pressure became low. Source of History: patient Onset: yesterday Position: tongue Quality: other (swelling) Timing: other (persistent) Note: Pt reports white spots on tongue, burning on tongue, bleeding tongue. Pt denies pain with swallowing, vaginal irritation/discharge. Review of Systems See HPI for pertinent positives & negatives. A total of 10 systems reviewed and were otherwise negative. Past Medical & Surgical Medical Problems: (1) back surgery (2) Barretts esophagus (3) Chest pain (4) Endocervical polyp (5) Hypertension (6) Patellar tendonitis (7) Pericardial effusion (8) Pneumonia (9) Post-menopause bleeding (10) Weakness Surgical Problems: (1) Hx of cholecystectomy Family History Diabetes mellitus FH: cancer FH: heart disease FH: lung disease Gallbladder disease Hypertension Kidney disease Kidney stones Social History Smoking Status: Never Smoker Alcohol Use: none Drug Use: none Marital Status: Housing Status: lives with family Occupation Status: retired Current/Historical Medications Scheduled Amlodipine (Norvasc), 5 MG PO DAILY Aspirin (Aspirin Ec), 81 MG PO QAM Baclofen (Baclofen), 10 MG PO BID Carvedilol (Carvedilol), 3.125 MG PO BID Cholecalciferol (Vitamin D3), 2,000 INTER.UNIT PO DAILY Clonazepam (Clonazepam), 0.5 MG PO HS Colchicine (Colchicine), 0.6 MG PO BID Fluconazole (Diflucan), 1 TAB PO DAILY Ibuprofen (Advil), 400 MG PO TID Lisinopril (Lisinopril), 40 MG PO DAILY Mirtazapine (Remeron), 15 MG PO HS Pantoprazole (Pantoprazole Sodium), 40 MG PO BID Ranitidine Hcl (Zantac), 150 MG PO BID Rosuvastatin Calcium (Rosuvastatin Calcium), 20 MG PO DAILY Sucralfate (Sucralfate), 1 GM PO QID Scheduled PRN Clonazepam (Klonopin), 0.25 MG PO DAILY PRN for Anxiety/Agitation Miconazole Nitrate (Desenex Shake Powder), 1 APPLN EXT PRN PRN for Affected Skin Folds Tramadol HCl (Tramadol HCl), 50 MG PO Q4H PRN for Pain Allergies Coded Allergies: Niacin (Verified Allergy, Intermediate, RASH, 07/13/17) Atorvastatin (Verified Adverse Reaction, Mild, MUSCLE ACHES, 07/13/17) Diltiazem (Verified Adverse Reaction, Mild, HEADACHE, 07/13/17) Physical Exam Vital Signs Date Time Temp Pulse Resp B/P (MAP) Pulse Ox O2 Delivery O2 Flow Rate FiO2 07/13/17 11:45 69 18 159/98 96 07/13/17 11:25 69 07/13/17 11:18 96 Room Air 07/13/17 11:18 69 18 159/98 96 Room Air 07/13/17 10:36 36.7 73 18 194/106 95 Room Air Physical Exam Vital signs reviewed. General: Well-appearing female, in no significant distress. HEENT: No scleral icterus, PERRLA, neck supple. Atraumatic. Mild erythema and no appreciable edema to the tongue, area of excoriation to the soft palate, minimal white plaque noted to the right buccal surface, tender to palpation of the tongue, posterior oropharynx clear with mild uvular edema. Cardiovascular: Regular rate and rhythm, no extra sounds. Pulmonary: Clear to auscultation bilaterally, normal work of breathing. Abdomen: Obese, soft, nontender, nondistended, positive bowel sounds. Musculoskeletal: Atraumatic, no peripheral edema. Neurologic: Patient awake alert and oriented x 3 Skin: Warm, dry, no rash Medical Decision & Procedures Medications Administered Medications (Trade) Dose Ordered Sig/Aurora Route Start Time Stop Time Status Last Admin Dose Admin Fluconazole (Diflucan Tab) 200 mg NOW ONCE PO 07/13/17 11:30 07/13/17 11:32 DC 07/13/17 11:29 200 MG ED Course 1056: Past medical records reviewed. The patient was evaluated in room A12B. A complete history and physical examination was performed. 1130: Diflucan Tab 200 mg PO. 1141: Upon reevaluation, the patient was resting comfortably. I discussed findings with her. She verbalized agreement of the treatment plan. She was discharged home. Medical Decision Differential diagnosis: angioedema, trauma, thrush. This patient was evaluated and appeared to be in no significant distress. Patient states the symptoms are greater than 24 hours duration. She seems to think it may have improved slightly this morning. There is no significant edema appreciated. The patient does have some mild tenderness to palpation. She has been on multiple antibiotics recently. I suspect that this is and oral thrush. Her lisinopril has recently been increased however. She was given the warning signs for angioedema and advised to return immediately if swelling markedly increases. Patient was given Diflucan 200 mg orally and a prescription for 100 mg a day for the next 6 days. Patient was advised to hold her colchicine well on the Diflucan and have her INR repeated in 3 days. Patient's blood pressure is markedly elevated. It did improve throughout her stay in the ER. She was advised to continue her blood pressure medications. She will follow-up with her PCP, case management will assist with scheduling this appointment. Patient will return to the ER for increased swelling or any medical concerns. Medication Reconcilliation Current Medication List: was personally reviewed by me Blood Pressure Screening Patient's blood pressure: Elevated blood pressure Blood pressure disposition: Referred to PCP Impression Primary Impression: Thrush, oral Additional Impression: Hypertension Scribe Attestation The scribe's documentation has been prepared under my direction and personally reviewed by me in its entirety. I confirm that the note above accurately reflects all work, treatment, procedures, and medical decision making performed by me. Departure Information Dispostion Home / Self-Care Prescriptions Fluconazole (DIFLUCAN) 100 Mg Tab 1 TAB PO DAILY for 6 Days, #6 TAB Prov: Michell Orta M.D. 07/13/17 Referrals Renzo Barker M.D. (PCP) Forms HOME CARE DOCUMENTATION FORM, IMPORTANT VISIT INFORMATION, WORK / SCHOOL INSTRUCTIONS Patient Instructions My [facility] Additional Instructions Diagnosis: Hypertension, rash Diflucan 100 mg daily for 6 more days. Continue your medications for high blood pressure as prescribed. If your tongue continues to swell or becomes difficult to swallow, you must return to the emergency department immediately. Follow-up with your physician in one to 2 days for reevaluation. Return to the ER for worsening of symptoms or any medical concerns. Problem Qualifiers
== END 2017-07-13 11:45 | disposition home or self-care (01) ==
LOC: C.EDB 10:31 → C.EDA 11:45
DX: B37.0 Candidal stomatitis (principal); I10 Essential (primary) hypertension; E66.9 Obesity, unspecified; Z79.82 Long term (current) use of aspirin; Z79.899 Other long term (current) drug therapy; Z87.01 Personal history of pneumonia (recurrent); Z87.828 Personal history of other (healed) physical injury and trauma; Z95.2 Presence of prosthetic heart valve; Z82.49 Family history of ischemic heart disease and other diseases of the circulatory system; Z83.3 Family history of diabetes mellitus; Z83.6 Family history of other diseases of the respiratory system; Z83.79 Family history of other diseases of the digestive system; Z84.1 Family history of disorders of kidney and ureter

== ENCOUNTER → 2017-07-18 | Outpatient (CLI) | payer BC ==
[~2017-07-18] MED LIST changes: +FLUC100T4 PO
[2017-07-18 12:30] LABS: BASO % 1.8 %; BASO ABS # 0.08 K/uL (0-0.2); COMPLETE YES; EOS % 7.8 %; HEMATOCRIT 34.9 % (37-47); IG% 0.5 %; LYMPH % 32.6 %; LYMPH ABS # 1.42 K/uL (1.2-3.4); MEAN CELL VOLUME 83.9 fL (80-100); MEAN CORPUSCULAR HEMOGLOBIN 26.2 pg (25-34); MEAN CORPUSCULAR HGB CONC 31.2 g/dl (32-36); MEAN PLATELET VOLUME 10.2 fL (7.4-10.4); MONO % 9.9 %; NEUT % 47.4 %; PLATELET COUNT 271 K/uL (130-400); RED BLOOD COUNT 4.16 M/uL (4.2-5.4); WHITE BLOOD COUNT 4.35 K/uL (4.8-10.8)
[2017-07-18 13:20] LABS: ALT/SGPT 19 U/L (12-78); AST/SGOT 13 U/L (15-37); BLOOD UREA NITROGEN 15 mg/dl (7-18); BUN/CREATININE RATIO 16.8 (10-20); CALCIUM 8.7 mg/dl (8.5-10.1); CARBON DIOXIDE 29 mmol/L (21-32); CHLORIDE 110 mmol/L (98-107); CREATININE 0.92 mg/dl (0.60-1.20); GLUCOSE 92 mg/dl (70-99); POTASSIUM 3.8 mmol/L (3.5-5.1); SODIUM 143 mmol/L (136-145)
[2017-07-18 13:23] LABS: ALB/GLOB RATIO 0.9 (0.9-2); ALKALINE PHOSPHATASE 96 U/L (45-117); C-REACTIVE PROTEIN < 0.29 mg/dl (0-0.29)
== END | disposition home or self-care (01) ==
LOC: C.LABBFT 10:16
PROVIDERS: ATTEND Internal Medicine
DX: R09.1 Pleurisy (principal); I10 Essential (primary) hypertension

== ENCOUNTER → 2017-08-08 | Outpatient (CLI) | payer BC ==
[~2017-08-08] MED LIST changes: -FLUC100T4 PO
== END | disposition home or self-care (01) ==
LOC: C.LABBFT 10:55
PROVIDERS: ATTEND Physician Assistant Medical
DX: L65.9 Nonscarring hair loss, unspecified (principal)

== ENCOUNTER → 2017-08-15 | Outpatient (CLI) | payer BC ==
--- NOTE | 2017-08-15 14:20 | DIAGNOSTIC IMAGING REPORT ---
CHEST 2 VIEWS ROUTINE HISTORY: Follow-up abnormal chest x-ray. PNEUMONIA COMPARISON: Chest 07/06/2017. FINDINGS: Persistent elevation the right hemidiaphragm. No focal lung consolidations to suggest pneumonia. No evidence for pulmonary edema. No pleural effusions. No pneumothorax. Aortic valve prosthesis. Surgical clips overlying the right anterior chest. The heart is stable in size. IMPRESSION: No acute process within the chest. Stable elevation of the right hemidiaphragm. Electronically signed by: Darion Doshi M.D. 08/15/2017 2:19 PM Dictated Date/Time: 08/15/2017 2:17 PM
[2017-08-15 14:48] LABS: INR 1.8 (0.9-1.1); PROTHROMBIN TIME (PATIENT) 19.2 SECONDS (9.0-12.0)
== END | disposition home or self-care (01) ==
LOC: C.RAD1850 14:00
PROVIDERS: ATTEND Physician Assistant Medical
DX: I26.99 Other pulmonary embolism without acute cor pulmonale (principal); J18.9 Pneumonia, unspecified organism

== ENCOUNTER 2017-09-22 12:16 | Emergency (ER) | payer BC ==
[~2017-09-22] VITALS: Ht 160 cm; Wt 92.1 kg
[~2017-09-22 12:16] MED LIST changes: +PANT40TA2 PO; -PRT/40 PO
[2017-09-22 12:20] VITALS: TEMP 36.3; Ht 160 cm; Wt 92.1 kg
[2017-09-22 12:55] VITALS: O2SAT 97
[2017-09-22] MEDS ORDERED: WARF-285 PO (13:18)
[2017-09-22] MEDS ORDERED: IBUP-1459 PO (13:18)
[2017-09-22 13:53] LABS: BASO % 1.9 %; BASO ABS # 0.09 K/uL (0-0.2); COMPLETE YES; EOS % 4.4 %; IG% 0.2 %; LYMPH % 40.4 %; LYMPH ABS # 1.93 K/uL (1.2-3.4); MEAN CELL VOLUME 83.9 fL (80-100); MEAN CORPUSCULAR HEMOGLOBIN 26.7 pg (25-34); MEAN CORPUSCULAR HGB CONC 31.8 g/dl (32-36); MEAN PLATELET VOLUME 9.7 fL (7.4-10.4); MONO % 8.2 %; NEUT % 44.9 %; PLATELET COUNT 243 K/uL (130-400); RED BLOOD COUNT 4.65 M/uL (4.2-5.4); WHITE BLOOD COUNT 4.78 K/uL (4.8-10.8)
[2017-09-22 14:03] LABS: INR 3.2 (0.9-1.1)
[2017-09-22 14:15] LABS: ALT/SGPT 26 U/L (12-78); BLOOD UREA NITROGEN 23 mg/dl (7-18); BUN/CREATININE RATIO 24.2 (10-20); CALCIUM 9.1 mg/dl (8.5-10.1); CARBON DIOXIDE 26 mmol/L (21-32); CHLORIDE 105 mmol/L (98-107); CREATININE 0.97 mg/dl (0.60-1.20); GLUCOSE 89 mg/dl (70-99); MAGNESIUM 2.4 mg/dl (1.8-2.4); SODIUM 139 mmol/L (136-145)
--- NOTE | 2017-09-22 14:16 | DIAGNOSTIC IMAGING REPORT ---
CHEST ONE VIEW PORTABLE CLINICAL HISTORY: Atypical chest pain COMPARISON STUDY: No previous studies for comparison. FINDINGS: The cardiac and mediastinal contours remain stable. There is mild elevation/eventration right hemidiaphragm. There is a radiopaque prosthesis, projected over the expected level of the aortic root/valve. There are surgical clips project over the right lung base. There is no failure. There is no focal pulmonary consolidation. There are no pleural effusions. IMPRESSION: No active disease in the chest. Electronically signed by: Noel Mcintosh M.D. 09/22/2017 2:14 PM Dictated Date/Time: 09/22/2017 2:13 PM
[2017-09-22 14:26] LABS: ALB/GLOB RATIO 0.9 (0.9-2); ALKALINE PHOSPHATASE 124 U/L (45-117); AST/SGOT 20 U/L (15-37)
[2017-09-22] MEDS ORDERED: OPTIRAY 320 IV PRN (15:00)
--- NOTE | 2017-09-22 15:35 | DIAGNOSTIC IMAGING REPORT ---
CT SCAN OF THE CHEST WITH IV CONTRAST CLINICAL HISTORY: Atypical right side chest pain. COMPARISON STUDY: Chest x-ray dated 09/22/2017. Chest CT dated 06/16/2017 and 10/11/2013. TECHNIQUE: Following the IV administration of 71 cc of Optiray 320, CT scan of the thorax was performed from the thoracic inlet to the upper abdomen. Images are reviewed in the axial, sagittal, and coronal planes. IV contrast was administered without complication. A dose lowering technique was utilized adhering to the principles of ALARA. CT DOSE: 482.88 mGy.cm FINDINGS: Thyroid: Imaged portions of the thyroid gland are normal in size and attenuation. Thoracic aorta: There is atherosclerotic calcification of the thoracic aorta, which is normal in caliber and demonstrates standard 3-vessel arch anatomy. No dissection is seen. Pulmonary vasculature: The pulmonary trunk is normal in caliber. There are no filling defects identified in the central pulmonary vessels to indicate pulmonary embolus. Note that this examination was not protocoled for evaluation of the pulmonary arteries. Heart: The heart is mildly enlarged and without pericardial effusion. There is evidence of previous aortic valve surgery. The mitral annulus is densely calcified. There are coronary artery calcifications. Lungs and pleural spaces: Evaluation of the lung parenchyma is modestly degraded by respiratory motion artifact. There is elevation of the right hemidiaphragm. Mild anterior protrusion of the right lung between the second and third ribs is similar to previous. Linear atelectasis versus scarring is present at the right apex. No airspace consolidation is seen typical for pneumonia and there is no pleural effusion. A calcified granuloma is noted in the right upper lobe. Dependent atelectasis is observed. The trachea and central airways are patent. Mediastinum: There is no mediastinal lymphadenopathy. Sejal: Clear. Axillae: There is no axillary lymphadenopathy. Upper abdomen: There is a tiny hiatal hernia. The gallbladder surgically absent. Mild central intrahepatic biliary ductal dilatation is noted. Skeletal structures: The skeletal structures are osteopenic. Degenerative change and hyperkyphosis are noted in the thoracic spine. No lytic or blastic bony lesions are seen. There is a lipoma in the left shoulder musculature seen on image #47. IMPRESSION: 1. There is no airspace consolidation typical for pneumonia or pleural effusion. 2. Cardiomegaly and hiatal hernia. 3. No mediastinal or hilar lymphadenopathy is seen. 4. Additional findings as above. Electronically signed by: González Ross M.D. 09/22/2017 3:34 PM Dictated Date/Time: 09/22/2017 3:27 PM
[2017-09-22] MEDS ORDERED: GI COCKTAIL PO STA (16:04)
[2017-09-22] MEDS ORDERED: ALUMINUM/MAGNESIUM SUSP 30 ML UDC ONE (16:15)
[2017-09-22] MEDS ORDERED: LIDOCAINE HCL 2% VISC SOLN 20 ML UDC ONE (16:16)
--- NOTE | 2017-09-22 16:48 | EMERGENCY ROOM VISIT NOTE ---
History Report prepared by Tristen: Tamar Guzman Under the Supervision of: Adrianna MathewO. First contact with patient: 12:59 Chief Complaint: CARDIAC ASSESSMENT Stated Complaint: TIGHT CHEST, RIB PAIN, NAUSEA Nursing Triage Summary: April 11 AVR, normally a little bit of chest tightness, but this weekend pain increased and now going around left ribs and up into her neck, dyspnea, and nausea all weekend. History of Present Illness The patient is a 72 year old female who presents to the Emergency Room with complaints of intermittent chest pain that started after having an aortic valve replacement. Her pain worsened a few days ago. The patient describes her discomfort as feeling of "tightness" that has worsen today. She notes she has soreness with pressure to her chest. The patient states she has been experiencing tingling in her arms. The patient notes her pain radiates to her ribs, left flank, and abdomen. The patient admits to being nauseous, but denies heart burn, vomiting, change in bowel movements, fevers, chills, dysuria, or any swelling. She notes that her pain worsens when she lays on her right side. The patient states she was diagnosed with a vaginal infection recently. She was instructed to take Bactrim which she has finished. She notes she has a check up coming up for her vaginal infection. Source of History: patient Onset: Few days ago Position: chest (left) Quality: other (tightness) Timing: intermittent Modifying Factors (Worsening): other (laying on right side) Associated Symptoms: + nausea, + abdominal pain, + back pain (left flank), No fevers, No chills, No vomiting, No urinary symptoms Review of Systems See HPI for pertinent positives & negatives. A total of 10 systems reviewed and were otherwise negative. Past Medical & Surgical Medical Problems: (1) back surgery (2) Barretts esophagus (3) Chest pain (4) Endocervical polyp (5) Hypertension (6) Patellar tendonitis (7) Pericardial effusion (8) Pneumonia (9) Post-menopause bleeding (10) Weakness Surgical Problems: (1) Hx of cholecystectomy Family History Diabetes mellitus FH: cancer FH: heart disease FH: lung disease Gallbladder disease Hypertension Kidney disease Kidney stones Social History Smoking Status: Never Smoker Alcohol Use: none Drug Use: none Marital Status: Housing Status: lives with family Occupation Status: retired Current/Historical Medications Scheduled Amlodipine (Norvasc), 5 MG PO DAILY Aspirin (Aspirin Ec), 81 MG PO QAM Baclofen (Baclofen), 10 MG PO BID Carvedilol (Carvedilol), 3.125 MG PO BID Cholecalciferol (Vitamin D3), 2,000 INTER.UNIT PO DAILY Clonazepam (Clonazepam), 0.5 MG PO HS Colchicine (Colchicine), 0.6 MG PO BID Ibuprofen (Motrin), 400 MG PO DAILY Lisinopril (Lisinopril), 40 MG PO DAILY Mirtazapine (Remeron), 15 MG PO HS Pantoprazole (Pantoprazole Sodium), 40 MG PO BID Ranitidine Hcl (Zantac), 150 MG PO BID Rosuvastatin Calcium (Rosuvastatin Calcium), 20 MG PO DAILY Sucralfate (Sucralfate), 1 GM PO QID Warfarin Sodium (Warfarin Sodium), 1 TAB PO DAILY Scheduled PRN Clonazepam (Klonopin), 0.25 MG PO DAILY PRN for Anxiety/Agitation Tramadol HCl (Tramadol HCl), 50 MG PO Q4H PRN for Pain Allergies Coded Allergies: Niacin (Verified Allergy, Intermediate, RASH, 09/22/17) Atorvastatin (Verified Adverse Reaction, Mild, MUSCLE ACHES, 09/22/17) Diltiazem (Verified Adverse Reaction, Mild, HEADACHE, 09/22/17) Physical Exam Vital Signs Date Time Temp Pulse Resp B/P (MAP) Pulse Ox O2 Delivery O2 Flow Rate FiO2 09/22/17 16:59 64 20 120/78 96 Room Air 09/22/17 16:17 67 20 143/86 96 Room Air 09/22/17 14:16 67 18 152/89 97 Room Air 09/22/17 12:58 71 09/22/17 12:55 97 09/22/17 12:43 68 18 131/85 95 Room Air 09/22/17 12:20 98 Room Air 09/22/17 12:20 36.3 77 18 153/90 98 Room Air Physical Exam GENERAL: alert, well appearing, well nourished, no distress, non-toxic EYE EXAM: normal conjunctiva, PERRL and EOM's grossly intact OROPHARYNX: no exudate, no erythema, lips, buccal mucosa, and tongue normal and mucous membranes are moist NECK: supple, no nuchal rigidity, no adenopathy, non-tender LUNGS: Clear to auscultation. Normal chest wall mechanics HEART: no murmurs, S1 normal and S2 normal CHEST: well healed horizontal incision along right chest all, pail with palpitation over incision ABDOMEN: abdomen soft, normo-active bowel sounds, no masses, no rebound or guarding. Mild epigastric tenderness. BACK: Back is symmetrical on inspection and there is no deformity, no midline tenderness, no CVA tenderness. SKIN: no rashes and no bruising UPPER EXTREMITIES: upper extremities are grossly normal. LOWER EXTREMITIES: No pitting edema. NEURO EXAM: Normal sensorium, cranial nerves II-XII grossly intact, normal speech, no gross weakness of arms, no gross weakness of legs. Medical Decision & Procedures ER Provider Diagnostic Interpretation: Radiology results have been interpreted by the radiologist and reviewed by me. CT SCAN OF THE CHEST WITH IV CONTRAST CLINICAL HISTORY: Atypical right side chest pain. COMPARISON STUDY: Chest x-ray dated 09/22/2017. Chest CT dated 06/16/2017 and 10/11/2013. TECHNIQUE: Following the IV administration of 71 cc of Optiray 320, CT scan of the thorax was performed from the thoracic inlet to the upper abdomen. Images are reviewed in the axial, sagittal, and coronal planes. IV contrast was administered without complication. A dose lowering technique was utilized adhering to the principles of ALARA. CT DOSE: 482.88 mGy.cm FINDINGS: Thyroid: Imaged portions of the thyroid gland are normal in size and attenuation. Thoracic aorta: There is atherosclerotic calcification of the thoracic aorta, which is normal in caliber and demonstrates standard 3-vessel arch anatomy. No dissection is seen. Pulmonary vasculature: The pulmonary trunk is normal in caliber. There are no filling defects identified in the central pulmonary vessels to indicate pulmonary embolus. Note that this examination was not protocoled for evaluation of the pulmonary arteries. Heart: The heart is mildly enlarged and without pericardial effusion. There is evidence of previous aortic valve surgery. The mitral annulus is densely calcified. There are coronary artery calcifications. Lungs and pleural spaces: Evaluation of the lung parenchyma is modestly degraded by respiratory motion artifact. There is elevation of the right hemidiaphragm. Mild anterior protrusion of the right lung between the second and third ribs is similar to previous. Linear atelectasis versus scarring is present at the right apex. No airspace consolidation is seen typical for pneumonia and there is no pleural effusion. A calcified granuloma is noted in the right upper lobe. Dependent atelectasis is observed. The trachea and central airways are patent. Mediastinum: There is no mediastinal lymphadenopathy. Sejal: Clear. Axillae: There is no axillary lymphadenopathy. Upper abdomen: There is a tiny hiatal hernia. The gallbladder surgically absent. Mild central intrahepatic biliary ductal dilatation is noted. Skeletal structures: The skeletal structures are osteopenic. Degenerative change and hyperkyphosis are noted in the thoracic spine. No lytic or blastic bony lesions are seen. There is a lipoma in the left shoulder musculature seen on image #47. IMPRESSION: 1. There is no airspace consolidation typical for pneumonia or pleural effusion. 2. Cardiomegaly and hiatal hernia. 3. No mediastinal or hilar lymphadenopathy is seen. 4. Additional findings as above. Electronically signed by: González Ross M.D. 09/22/2017 3:34 PM CHEST ONE VIEW PORTABLE CLINICAL HISTORY: Atypical chest pain COMPARISON STUDY: No previous studies for comparison. FINDINGS: The cardiac and mediastinal contours remain stable. There is mild elevation/eventration right hemidiaphragm. There is a radiopaque prosthesis, projected over the expected level of the aortic root/valve. There are surgical clips project over the right lung base. There is no failure. There is no focal pulmonary consolidation. There are no pleural effusions. IMPRESSION: No active disease in the chest. Electronically signed by: Noel Mcintosh M.D. 09/22/2017 2:14 PM Laboratory Results 09/22/17 12:55 Red Blood Count 4.65, Mean Corpuscular Volume 83.9, Mean Corpuscular Hemoglobin 26.7, Mean Corpuscular Hemoglobin Concent 31.8, Mean Platelet Volume 9.7, Neutrophils (%) (Auto) 44.9, Lymphocytes (%) (Auto) 40.4, Monocytes (%) (Auto) 8.2, Eosinophils (%) (Auto) 4.4, Basophils (%) (Auto) 1.9, Neutrophils # (Auto) 2.15, Lymphocytes # (Auto) 1.93, Monocytes # (Auto) 0.39, Eosinophils # (Auto) 0.21, Basophils # (Auto) 0.09 09/22/17 12:55 Test 09/22/17 12:55 White Blood Count 4.78 K/uL (4.8-10.8) Red Blood Count 4.65 M/uL (4.2-5.4) Hemoglobin 12.4 g/dL (12.0-16.0) Hematocrit 39.0 % (37-47) Mean Corpuscular Volume 83.9 fL (80-100) Mean Corpuscular Hemoglobin 26.7 pg (25-34) Mean Corpuscular Hemoglobin Concent 31.8 g/dl (32-36) Platelet Count 243 K/uL (130-400) Mean Platelet Volume 9.7 fL (7.4-10.4) Neutrophils (%) (Auto) 44.9 % Lymphocytes (%) (Auto) 40.4 % Monocytes (%) (Auto) 8.2 % Eosinophils (%) (Auto) 4.4 % Basophils (%) (Auto) 1.9 % Neutrophils # (Auto) 2.15 K/uL (1.4-6.5) Lymphocytes # (Auto) 1.93 K/uL (1.2-3.4) Monocytes # (Auto) 0.39 K/uL (0.11-0.59) Eosinophils # (Auto) 0.21 K/uL (0-0.5) Basophils # (Auto) 0.09 K/uL (0-0.2) RDW Standard Deviation 56.9 fL (36.4-46.3) RDW Coefficient of Variation 18.4 % (11.5-14.5) Immature Granulocyte % (Auto) 0.2 % Immature Granulocyte # (Auto) 0.01 K/uL (0.00-0.02) Prothrombin Time 36.0 SECONDS (9.0-12.0) Prothromb Time International Ratio 3.2 (0.9-1.1) Anion Gap 8.0 mmol/L (3-11) Est Creatinine Clear Calc Drug Dose 57.3 ml/min Estimated GFR () 68.1 Estimated GFR (Non- 58.8 BUN/Creatinine Ratio 24.2 (10-20) Calcium Level 9.1 mg/dl (8.5-10.1) Magnesium Level 2.4 mg/dl (1.8-2.4) Total Bilirubin 0.2 mg/dl (0.2-1) Aspartate Amino Transf (AST/SGOT) 20 U/L (15-37) Alanine Aminotransferase (ALT/SGPT) 26 U/L (12-78) Alkaline Phosphatase 124 U/L (45-117) Troponin I < 0.015 ng/ml (0-0.045) Total Protein 8.1 gm/dl (6.4-8.2) Albumin 3.7 gm/dl (3.4-5.0) Globulin 4.4 gm/dl (2.5-4.0) Albumin/Globulin Ratio 0.9 (0.9-2) Lipase 206 U/L (73-393) Thyroid Stimulating Hormone (TSH) 2.490 uIu/ml (0.300-4.500) Laboratory results per my review. Medications Administered Medications (Trade) Dose Ordered Sig/Aurora Route Start Time Stop Time Status Last Admin Dose Admin Al Hydroxide/Mg Hydroxide (Maalox Susp) 30 ml STK-MED ONCE .ROUTE 09/22/17 16:15 09/22/17 16:16 DC 09/22/17 16:24 30 ML Lidocaine HCl (Viscous Lidocaine 2% Soln) 20 ml STK-MED ONCE .ROUTE 09/22/17 16:16 09/22/17 16:17 DC 09/22/17 16:24 20 ML ECG Indication: chest pain Rate (beats per minute): 74 Rhythm: normal sinus Findings: no acute ischemic change, other (borderline AV block, right bundle branch block, normal axis) ED Course 1307: The patient was evaluated in room B4B. A complete history and physical exam was performed. 1434: I reevaluated the patient. She was still feeling pain and was updated on results. 1500: Ordered Optiray 320 100ml IV 1604: Ordered GI cocktail 24ml PO. 1715: Upon reevaluation, the patient is feeling better. I discussed the findings and the treatment plan with the patient. She verbalizes agreement and understanding. The patient was discharged home. Medication Reconcilliation Current Medication List: was personally reviewed by me Blood Pressure Screening Patient's blood pressure: Elevated blood pressure Blood pressure disposition: Elevated BP felt to be situational Impression Primary Impression: Chest pain Scribe Attestation The scribe's documentation has been prepared under my direction and personally reviewed by me in its entirety. I confirm that the note above accurately reflects all work, treatment, procedures, and medical decision making performed by me. Departure Information Dispostion Home / Self-Care Referrals Renzo Barker M.D. (PCP) Patient Instructions My [facility] Additional Instructions Please continue your regular medications as prescribed. Please avoid acidic foods in your diet. If you have any worsening pain, develop fevers, vomiting, dizziness, notice black or bloody stools, have trouble breathing, or you have any other new or concerning symptoms, please return to the emergency room. Problem Qualifiers Primary Impression: Chest pain Chest pain type: unspecified Qualified Codes: R07.9 - Chest pain, unspecified
[2017-09-22 16:59] VITALS: BP 120/78; PULSE 64; O2SAT 96
== END 2017-09-22 17:15 | disposition home or self-care (01) ==
LOC: C.EDB 12:18
DX: R07.9 Chest pain, unspecified (principal); Z95.2 Presence of prosthetic heart valve; Z87.01 Personal history of pneumonia (recurrent); Z90.49 Acquired absence of other specified parts of digestive tract; K22.70 Barrett's esophagus without dysplasia; I10 Essential (primary) hypertension; Z83.3 Family history of diabetes mellitus; Z80.9 Family history of malignant neoplasm, unspecified; Z82.49 Family history of ischemic heart disease and other diseases of the circulatory system; Z84.1 Family history of disorders of kidney and ureter; Z79.82 Long term (current) use of aspirin; Z79.01 Long term (current) use of anticoagulants

== ENCOUNTER → 2017-09-24 | Outpatient (CLI) | payer BC ==
[~2017-09-24] MED LIST changes: -IBUP-1050 PO; +IBUP-1459 PO; -MCTP EXT; +WARF-285 PO
[2017-09-24 14:45] LABS: INR 2.8 (0.9-1.1); PROTHROMBIN TIME (PATIENT) 30.7 SECONDS (9.0-12.0)
== END | disposition home or self-care (01) ==
LOC: C.LAB1850 13:36
PROVIDERS: ATTEND Physician Assistant Medical
DX: I26.99 Other pulmonary embolism without acute cor pulmonale (principal); I31.9 Disease of pericardium, unspecified

== ENCOUNTER 2017-10-01 07:41 | Emergency (ER) | payer BC ==
[~2017-10-01] VITALS: Ht 160 cm; Wt 92.3 kg
[2017-10-01 07:48] VITALS: TEMP 36.7; Ht 160 cm; Wt 92.3 kg
[2017-10-01] MEDS ORDERED: CRFL PO (08:16)
[2017-10-01] MEDS ORDERED: TRAM-10 PO (08:16)
[2017-10-01] MEDS ORDERED: LISI40TA PO (08:16)
[2017-10-01] MEDS ORDERED: NRV/5 PO (08:16)
[2017-10-01 08:50] LABS: HEMATOCRIT 37.5 % (37-47); MEAN CELL VOLUME 83.7 fL (80-100); MEAN CORPUSCULAR HEMOGLOBIN 26.8 pg (25-34); MEAN PLATELET VOLUME 9.9 fL (7.4-10.4); PLATELET COUNT 198 K/uL (130-400); RED BLOOD COUNT 4.48 M/uL (4.2-5.4); WHITE BLOOD COUNT 4.92 K/uL (4.8-10.8)
[2017-10-01 08:52] LABS: PROTHROMBIN TIME (PATIENT) 41.1 SECONDS (9.0-12.0)
[2017-10-01 08:53] LABS: BLOOD UREA NITROGEN 17 mg/dl (7-18); BUN/CREATININE RATIO 17.2 (10-20); CALCIUM 9.1 mg/dl (8.5-10.1); CARBON DIOXIDE 24 mmol/L (21-32); CHLORIDE 110 mmol/L (98-107); CREATININE 1.01 mg/dl (0.60-1.20); GLUCOSE 107 mg/dl (70-99); POTASSIUM 3.7 mmol/L (3.5-5.1); SODIUM 142 mmol/L (136-145)
[2017-10-01 08:56] LABS: INR 3.6 (0.9-1.1)
[2017-10-01 08:58] LABS: ALB/GLOB RATIO 0.8 (0.9-2); ALKALINE PHOSPHATASE 129 U/L (45-117); ALT/SGPT 29 U/L (12-78); AST/SGOT 25 U/L (15-37)
--- NOTE | 2017-10-01 09:06 | DIAGNOSTIC IMAGING REPORT ---
CHEST 2 VIEWS ROUTINE HISTORY: PRODUCTIVE COUGH COMPARISON: Chest 09/22/2017. FINDINGS: No focal lung consolidations to suggest pneumonia. No evidence for pulmonary edema. Chronic elevation the right hemidiaphragm. An aortic valve prosthesis is again noted. The heart is stable in size. No pleural effusions. No pneumothorax. Small linear scarlike density within the right lung base. IMPRESSION: No significant change compared to the prior study. No acute process. Electronically signed by: Darion Doshi M.D. 10/01/2017 9:05 AM Dictated Date/Time: 10/01/2017 9:03 AM
--- NOTE | 2017-10-01 10:26 | EMERGENCY ROOM VISIT NOTE ---
ED Visit Note First contact with patient: 07:54 Staff note: I have reviewed the Patients chart and have discussed this case with my PA. I generally agree with the ED note and findings.
--- NOTE | 2017-10-01 10:39 | EMERGENCY ROOM VISIT NOTE ---
History First contact with patient: 07:54 Chief Complaint: CONGESTION Stated Complaint: COLD, COUGHING, CONGESTION Nursing Triage Summary: pt reports she is congested and feels nauseated unable to sleep last night has been using mucinex no relief. has dr appt friday. has intermittent chills and fever. using advil. has cough yellow mucus. feeling dizzy History of Present Illness Patient is a 72-year-old white female with past medical history significant for hypertension, dyslipidemia, GERD, anxiety, recent history of pericarditis, and status post aortic valve replacement on warfarin who presents to the emergency department accompanied by her for evaluation of a "head cold." She states her symptoms started about 3 or 4 days ago. She notes sinus and nasal congestion. She reports a stuffy, runny nose. She feels slightly nauseous, lightheaded and dizzy. Her nose and her eyes are watering. She had difficulty sleeping last night due to her symptoms. She has a cough that is productive of scant sputum. She notes some minor midsternal soreness with coughing. She has a minor headache. She reports that family members who lives with her are sick with similar symptoms. She had chills and felt warm but did not check her temperature with a thermometer. She tried taking Mucinex which gave her only a few hours of relief. She is on ibuprofen the pericarditis, and has been taking a second dose of ibuprofen at bedtime. She reports that she has been appointment with her own provider in 2 days, but did not think that she could wait until then to be seen. She denies any chest pain or palpitations. She does feel slightly short of breath due to the congestion. She denies any calf or leg pain or swelling. She has not vomited. She thinks the nausea is due to the drainage/postnasal drip and the ibuprofen. Her INR was checked one week ago and was 2.8. Review of Systems Review of systems as per HPI. All other systems reviewed were negative. 10 systems reviewed. Past Medical/Surgical History Medical Problems: (1) Abdominal pain (2) Acute diverticulitis (3) Anxiety (4) Back pain (5) Barretts esophagus (6) Bilateral pleural effusion (7) Chest pain (8) Chest wall contusion (9) Diverticulitis Colon (W/O Ment Of Hemorrhage) (10) Diverticulosis Colon (W/O Ment Of Hemorrhage) (11) Endocervical polyp (12) Fall (13) Gastritis (14) Hemoptysis (15) Hemoptysis (16) Hypertension (17) Hypokalemia (18) Migraine (19) Mild dehydration (20) Mood disorder (21) Patellar tendonitis (22) Pericardial effusion (23) Pleural effusion (24) Pneumonia (25) Post-menopause bleeding (26) Pulmonary emboli (27) Shortness of breath (28) Shortness of breath (29) Suicidal ideation (30) Suicidal ideation (31) Thrush, oral (32) Weakness Surgical Problems: (1) back surgery (2) H/O aortic valve replacement (3) Hx of cholecystectomy Electronic medical records are reviewed and summarized as above/below. See Problem List. Family History Diabetes mellitus FH: cancer FH: heart disease FH: lung disease Gallbladder disease Hypertension Kidney disease Kidney stones Social History Smoking Status: Never Smoker Alcohol Use: none Drug Use: none Marital Status: Housing Status: lives with family Occupation Status: retired Current/Historical Medications Scheduled Amlodipine Besylate (Amlodipine Besylate), 1 TAB PO DAILY Aspirin (Aspirin Ec), 81 MG PO QAM Baclofen (Baclofen), 10 MG PO BID Carvedilol (Carvedilol), 3.125 MG PO BID Cholecalciferol (Vitamin D3), 2,000 INTER.UNIT PO DAILY Clonazepam (Clonazepam), 0.5 MG PO HS Colchicine (Colchicine), 0.6 MG PO BID Ibuprofen (Motrin), 400 MG PO DAILY Lisinopril (Zestril), 40 MG PO DAILY Mirtazapine (Remeron), 15 MG PO HS Pantoprazole (Pantoprazole Sodium), 40 MG PO BID Ranitidine Hcl (Zantac), 150 MG PO BID Rosuvastatin Calcium (Rosuvastatin Calcium), 20 MG PO DAILY Sucralfate (Carafate), 1 GM PO QID Warfarin Sodium (Warfarin Sodium), 1 TAB PO DAILY Scheduled PRN Clonazepam (Klonopin), 0.25 MG PO DAILY PRN for Anxiety/Agitation Tramadol (Ultram), 50 MG PO Q4H PRN for Pain Physical Exam Vital Signs Date Time Temp Pulse Resp B/P (MAP) Pulse Ox O2 Delivery O2 Flow Rate FiO2 10/01/17 10:40 80 20 155/91 97 Room Air 10/01/17 09:49 75 18 152/84 96 Room Air 10/01/17 08:33 82 10/01/17 08:33 86 20 131/75 98 Room Air 10/01/17 07:48 36.7 83 18 168/94 98 Room Air Physical Exam MENTAL STATUS: Patient is a well-appearing 72-year-old white female who is awake and alert and in no acute distress. She is audibly congested. No conversational dyspnea. HEAD: Atraumatic, without temporal or scalp tenderness. EYES: PERRL, EOMI, no discharge or injection. EARS: Tympanic membranes intact, not inflamed, have normal contour. External canals clear. NOSE: Nares patent, turbinates edematous and boggy with clear rhinorrhea. MOUTH: Mucous membranes moist, no lesions, tongue and gums appear normal. THROAT: No pharyngeal injection, exudates, or tonsillar hypertrophy. Airway is patent. NECK: Supple, nontender, no lymphadenopathy. HEART: Regular rate and rhythm without murmurs, ectopy, gallops, or rubs. LUNGS: Clear to auscultation and breath sounds equal, no wheezes, rales, or rhonchi. SKIN: Normal. NEUROLOGICAL: Sensory and motor functions grossly intact. Normal gait. Medical Decision & Procedures ER Provider Diagnostic Interpretation: CHEST 2 VIEWS ROUTINE HISTORY: PRODUCTIVE COUGH COMPARISON: Chest 09/22/2017. FINDINGS: No focal lung consolidations to suggest pneumonia. No evidence for pulmonary edema. Chronic elevation the right hemidiaphragm. An aortic valve prosthesis is again noted. The heart is stable in size. No pleural effusions. No pneumothorax. Small linear scarlike density within the right lung base. IMPRESSION: No significant change compared to the prior study. No acute process. Laboratory Results 10/01/17 08:25 10/01/17 08:25 Test 10/01/17 08:25 Red Blood Count 4.48 M/uL (4.2-5.4) Mean Corpuscular Volume 83.7 fL (80-100) Mean Corpuscular Hemoglobin 26.8 pg (25-34) Mean Corpuscular Hemoglobin Concent 32.0 g/dl (32-36) RDW Standard Deviation 56.6 fL (36.4-46.3) RDW Coefficient of Variation 18.3 % (11.5-14.5) Mean Platelet Volume 9.9 fL (7.4-10.4) Nucleated RBC Absolute Count (auto) 0.00 K/uL (0-0) Nucleated Red Blood Cells % 0.0 % Prothrombin Time 41.1 SECONDS (9.0-12.0) Prothromb Time International Ratio 3.6 (0.9-1.1) Anion Gap 8.0 mmol/L (3-11) Est Creatinine Clear Calc Drug Dose 55.1 ml/min Estimated GFR () 64.9 Estimated GFR (Non- 56.0 BUN/Creatinine Ratio 17.2 (10-20) Calcium Level 9.1 mg/dl (8.5-10.1) Total Bilirubin 0.2 mg/dl (0.2-1) Aspartate Amino Transf (AST/SGOT) 25 U/L (15-37) Alanine Aminotransferase (ALT/SGPT) 29 U/L (12-78) Alkaline Phosphatase 129 U/L (45-117) Troponin I < 0.015 ng/ml (0-0.045) Total Protein 7.8 gm/dl (6.4-8.2) Albumin 3.5 gm/dl (3.4-5.0) Globulin 4.3 gm/dl (2.5-4.0) Albumin/Globulin Ratio 0.8 (0.9-2) ECG Indication: chest pain, nausea Rate (beats per minute): 80 Rhythm: normal sinus Findings: RBBB Change: no significant change Medical Decision The patient was seen and evaluated as above. Her old records are reviewed. She presents to the emergency department for evaluation of complaints of upper respiratory symptoms. Vital signs are stable and she is afebrile. CBC, CMP, troponin were drawn and were unremarkable. Her INR was supratherapeutic at 3.8. Chest x-ray was obtained, and was unremarkable. EKG was performed and was as noted above. Patient history and presentation were reviewed with attending physician. She has an isolated upper respiratory illness. She does not appear to have any lower airway involvement. Chest x-ray does not indicate acute process. Her INR is supratherapeutic at 3.8. She was instructed to hold her Coumadin today and call her toolman for further dosing instructions. When she is discussing her Coumadin with her toolman, she can also talk to them about what [id number] medication she can safely take due to her cardiac history and current medications. She expressed understanding of this and was agreeable. Her illness is viral in nature at this point. She does not have evidence for bronchitis, sinus infection or tonsillitis and it was not felt that any antibiotics were indicated. Continued supportive care was discussed. She was welcome to return to the emergency department for worsening symptoms. She does have a PCP appointment in 2 days and was encouraged to keep this for recheck. Medication Reconcilliation Current Medication List: was personally reviewed by me Blood Pressure Screening Patient's blood pressure: Elevated blood pressure Blood pressure disposition: Elevated BP felt to be situational, Referred to PCP Impression Primary Impression: Upper respiratory infection Departure Information Referrals Renzo Barker M.D. (PCP) Patient Instructions My [facility] Additional Instructions Acetaminophen(Tylenol) may be used for fever or pain. Use 1000mg every six hours as needed. Avoid using more than 3000mg in a 24 hour period. (AND/OR) Ibuprofen(Motrin, Advil) may be used for fever or pain. Use 600mg every six hours as needed. Take with food. Avoid using more than 2400mg in a 24 hour period. Do not use 2400mg per day for more than three consecutive days without physician direction. Prolonged inappropriate use can lead to stomach upset or ulcers. Afrin nasal spray: 2-3 sprays to each nostril twice daily as needed for congestion. Do not use for more than 3-4 days because it can lead to worsening rebound congestion. Guaifenesin (Mucinex) : Take 1200 mg every 12 hours as needed for nasal/chest congestion, to help thin secretions. Rest and drink plenty of fluids. Wash your hands after nose blowing, sneezing, or coughing. Most germs are spread through contact, therefore improper hygiene may result in your close contacts and loved ones becoming ill just like you. Continue current medications. Return to the ER for severe headache, neck stiffness, chest pain, difficulty breathing, fevers, vomiting, worsening of your condition, or as needed. Follow up with your primary physician this week for a recheck of your current condition. Call your toolman this afternoon to notify them of your symptoms, and to discuss any [id number] medications that you can use. Also, your INR was 3.8 today. No Coumadin today (Monday 10/01), and follow instructions according to cardiology.
[2017-10-01 10:40] VITALS: BP 155/91; PULSE 80; O2SAT 97
== END 2017-10-01 10:48 | disposition home or self-care (01) ==
LOC: C.EDB 07:44
DX: J06.9 Acute upper respiratory infection, unspecified (principal); I10 Essential (primary) hypertension; I31.9 Disease of pericardium, unspecified; E78.5 Hyperlipidemia, unspecified; K22.70 Barrett's esophagus without dysplasia; K21.9 Gastro-esophageal reflux disease without esophagitis; Z91.81 History of falling; Z87.01 Personal history of pneumonia (recurrent); Z95.2 Presence of prosthetic heart valve; Z90.49 Acquired absence of other specified parts of digestive tract; Z83.3 Family history of diabetes mellitus; Z82.49 Family history of ischemic heart disease and other diseases of the circulatory system; Z84.1 Family history of disorders of kidney and ureter; Z79.01 Long term (current) use of anticoagulants; Z79.82 Long term (current) use of aspirin; Z79.899 Other long term (current) drug therapy

== ENCOUNTER 2017-11-24 17:28 | Observation (INO) | payer BC ==
[~2017-11-24] VITALS: Ht 160 cm; Wt 92.6 kg
[~2017-11-24 17:28] MED LIST changes: -AMLO-110 PO; +CRFL PO; -CRFUDL PO; +LISI40TA PO; -LSN40 PO; +NRV/5 PO; -ROSU20TA22 PO; +ROSU20TA33 PO; +TRAM-10 PO; -ULT50X PO
[2017-11-24] MEDS ORDERED: ASPIRIN 81 MG CHEW PO STA (18:09)
[2017-11-24] MEDS ORDERED: NITROGLYCERIN 0.4 MG SL PER TAB CHARGE SL PRN ×2 (18:15→23:00)
--- NOTE | 2017-11-24 18:17 | EMERGENCY ROOM VISIT NOTE ---
History Report prepared by Tristen: Georgia Ortez Under the Supervision of: Dr. Michell Orta M.D. First contact with patient: 18:03 Chief Complaint: CHEST PAIN Stated Complaint: CHEST PAIN AND AROUND RIBS Nursing Triage Summary: patient c/o "a little tightness" in mid chest since yesterday. patient states she took a pain pill yesterday with some relief. patient c/o mid sternal chest pain since this AM. pain does not radiate. patient also c/o SOB. "unable to take a deep breathe. " hx arotic valve relacement april 2017 History of Present Illness The patient is a 72 year old female who presents to the Emergency Room with complaints of chest pain beginning today. She went to the doctor this morning and had blood work done and meant to mention it, but forgot. She then went home and "couldn't get warm, had a tightness in her chest and needed to take breaths , and felt she had a fever and chills." The patient then called Dr. Barker who recommended she come into the Emergency Department. She took her stomach medicine at 1500 this today and an 81 mg aspirin. She currently does not feel any pain but she feels a "soreness in her chest" She denies any swelling, fever , cough, vomiting, or diarrhea. Source of History: patient Onset: this morning Position: chest Quality: other (soreness) Associated Symptoms: No fevers, No cough, No vomiting, No diarrhea Review of Systems See HPI for pertinent positives & negatives. A total of 10 systems reviewed and were otherwise negative. Past Medical & Surgical Medical Problems: (1) Abdominal pain (2) Acute diverticulitis (3) Anxiety (4) Atypical angina (5) Back pain (6) Barretts esophagus (7) Bilateral pleural effusion (8) Chest pain (9) Chest wall contusion (10) Diverticulitis Colon (W/O Ment Of Hemorrhage) (11) Diverticulosis Colon (W/O Ment Of Hemorrhage) (12) Endocervical polyp (13) Fall (14) Gastritis (15) Hemoptysis (16) Hemoptysis (17) Hypertension (18) Hypokalemia (19) Left sided chest pain (20) Migraine (21) Mild dehydration (22) Mood disorder (23) Patellar tendonitis (24) Pericardial effusion (25) Pleural effusion (26) Pneumonia (27) Post-menopause bleeding (28) Pulmonary emboli (29) Shortness of breath (30) Shortness of breath (31) Suicidal ideation (32) Suicidal ideation (33) Thrush, oral (34) Weakness Surgical Problems: (1) back surgery (2) H/O aortic valve replacement (3) Hx of cholecystectomy Family History Diabetes mellitus FH: cancer FH: heart disease FH: lung disease Gallbladder disease Hypertension Kidney disease Kidney stones Social History Smoking Status: Never Smoker Alcohol Use: none Drug Use: none Marital Status: Housing Status: lives with family Occupation Status: retired Current/Historical Medications Scheduled Amlodipine Besylate (Amlodipine Besylate), 1 TAB PO QAM Aspirin (Aspirin Ec), 81 MG PO QAM Baclofen (Baclofen), 10 MG PO BID Cholecalciferol (Vitamin D3), 2,000 INTER.UNIT PO QAM Clonazepam (Clonazepam), 0.5 MG PO HS Colchicine (Colchicine), 0.6 MG PO BID Ibuprofen (Motrin), 400 MG PO DAILY Lisinopril (Zestril), 40 MG PO DAILY Melatonin (Kp Melatonin), 1.5 MG PO HS Pantoprazole (Pantoprazole Sodium), 40 MG PO BID Ranitidine Hcl (Zantac), 150 MG PO BID Rosuvastatin Calcium (Rosuvastatin Calcium), 20 MG PO DAILY Warfarin Sod (Jantoven), 3 MG PO TuTh Warfarin Sod (Jantoven), 4.5 MG PO [id number] Scheduled PRN Clonazepam (Klonopin), 0.25 MG PO DAILY PRN for Anxiety/Agitation Tramadol (Ultram), 50 MG PO Q4H PRN for Pain Allergies Coded Allergies: Niacin (Verified Allergy, Intermediate, RASH, 11/24/17) Atorvastatin (Verified Adverse Reaction, Mild, MUSCLE ACHES, 11/24/17) Diltiazem (Verified Adverse Reaction, Mild, HEADACHE, 11/24/17) Physical Exam Vital Signs Date Time Temp Pulse Resp B/P (MAP) Pulse Ox O2 Delivery O2 Flow Rate FiO2 11/24/17 22:04 65 11/24/17 21:31 65 16 165/101 97 Room Air 11/24/17 18:59 61 16 147/78 97 Room Air 11/24/17 18:23 97 Room Air 11/24/17 18:05 86 11/24/17 17:48 97 Room Air 11/24/17 17:38 36.7 70 18 155/95 98 Room Air Physical Exam Vital signs reviewed. General: Elderly, well-appearing female, in no significant distress. HEENT: No scleral icterus, PERRLA, neck supple. Atraumatic. Cardiovascular: Regular rate and rhythm, no extra sounds. Pulmonary: Clear to auscultation bilaterally, normal work of breathing. Abdomen: Soft, mild tenderness to palpation over the anterior chest wall, nondistended, positive bowel sounds. Obese abdomen. Musculoskeletal: Atraumatic, Minimal peripheral edema. Neurologic: Patient awake alert and oriented x 3 Skin: Warm, dry, no rash Medical Decision & Procedures ER Provider Diagnostic Interpretation: Radiology results as stated below per my review and radiologist interpretation: CHEST ONE VIEW PORTABLE CLINICAL HISTORY: chest pain, AVR dyspnea COMPARISON STUDY: 10/01/2017 FINDINGS: The bones soft tissues and hemidiaphragms are normal. The cardiomediastinal silhouette is normal. The lungs are clear. The pulmonary vasculature is normal. IMPRESSION: Negative chest. The above report was generated using voice recognition software. It may contain grammatical, syntax or spelling errors. Electronically signed by: Tim Siegel M.D. 11/24/2017 6:31 PM Dictated Date/Time: 11/24/2017 6:30 PM Laboratory Results 11/24/17 18:40 Red Blood Count 4.45, Mean Corpuscular Volume 85.6, Mean Corpuscular Hemoglobin 27.9, Mean Corpuscular Hemoglobin Concent 32.5, Mean Platelet Volume 9.4, Neutrophils (%) (Auto) 50.4, Lymphocytes (%) (Auto) 33.0, Monocytes (%) (Auto) 9.3, Eosinophils (%) (Auto) 5.8, Basophils (%) (Auto) 1.3, Neutrophils # (Auto) 3.22, Lymphocytes # (Auto) 2.10, Monocytes # (Auto) 0.59, Eosinophils # (Auto) 0.37, Basophils # (Auto) 0.08 11/24/17 18:40 Test 11/24/17 18:40 11/24/17 19:10 11/24/17 20:33 White Blood Count 6.37 K/uL (4.8-10.8) Red Blood Count 4.45 M/uL (4.2-5.4) Hemoglobin 12.4 g/dL (12.0-16.0) Hematocrit 38.1 % (37-47) Mean Corpuscular Volume 85.6 fL (80-100) Mean Corpuscular Hemoglobin 27.9 pg (25-34) Mean Corpuscular Hemoglobin Concent 32.5 g/dl (32-36) Platelet Count 218 K/uL (130-400) Mean Platelet Volume 9.4 fL (7.4-10.4) Neutrophils (%) (Auto) 50.4 % Lymphocytes (%) (Auto) 33.0 % Monocytes (%) (Auto) 9.3 % Eosinophils (%) (Auto) 5.8 % Basophils (%) (Auto) 1.3 % Neutrophils # (Auto) 3.22 K/uL (1.4-6.5) Lymphocytes # (Auto) 2.10 K/uL (1.2-3.4) Monocytes # (Auto) 0.59 K/uL (0.11-0.59) Eosinophils # (Auto) 0.37 K/uL (0-0.5) Basophils # (Auto) 0.08 K/uL (0-0.2) RDW Standard Deviation 51.5 fL (36.4-46.3) RDW Coefficient of Variation 16.2 % (11.5-14.5) Immature Granulocyte % (Auto) 0.2 % Immature Granulocyte # (Auto) 0.01 K/uL (0.00-0.02) Prothrombin Time 26.7 SECONDS (9.0-12.0) Prothromb Time International Ratio 2.6 (0.9-1.1) Activated Partial Thromboplast Time 39.2 SECONDS (21.0-31.0) Partial Thromboplastin Ratio 1.5 Anion Gap 8.0 mmol/L (3-11) Est Creatinine Clear Calc Drug Dose 59.7 ml/min Estimated GFR () 70.7 Estimated GFR (Non- 61.0 BUN/Creatinine Ratio 22.6 (10-20) Calcium Level 9.1 mg/dl (8.5-10.1) Magnesium Level 2.1 mg/dl (1.8-2.4) Total Bilirubin 0.3 mg/dl (0.2-1) Direct Bilirubin < 0.1 mg/dl (0-0.2) Aspartate Amino Transf (AST/SGOT) 23 U/L (15-37) Alanine Aminotransferase (ALT/SGPT) 26 U/L (12-78) Alkaline Phosphatase 102 U/L (45-117) Total Creatine Kinase 89 U/L (26-192) Creatine Kinase MB 0.9 ng/ml (0.5-3.6) Creatine Kinase MB Ratio 1.0 (0-3.0) Total Protein 7.8 gm/dl (6.4-8.2) Albumin 3.6 gm/dl (3.4-5.0) Influenza Type A Antigen Neg for Influ A (NEG) Influenza Type B Antigen Neg for Influ B (NEG) Bedside Troponin I < 0.030 ng/ml (0-0.045) Laboratory results per my review. Medications Administered Medications (Trade) Dose Ordered Sig/Aurora Route Start Time Stop Time Status Last Admin Dose Admin Aspirin (Aspirin Chew) 243 mg NOW STAT PO 11/24/17 18:09 11/24/17 18:14 DC 11/24/17 18:58 243 MG ECG Indication: chest pain Rate (beats per minute): 67 Rhythm: normal sinus Findings: RBBB, no acute ischemic change, no ectopy ED Course 1812: Past medical records reviewed. The patient was evaluated in room C3. A complete history and physical examination was performed. 1808: Ordered aspirin 243 mg PO 1814: Ordered nitroglycerin 0.4 mg SL 2038: I reevaluated the patient at this time. She was resting comfortably. 2134: Upon reevaluation, the patient is resting comfortably. I discussed laboratory and radiographic results with her. She verbalized agreement of the treatment plan. The patient will be evaluated for further management and care. 2299: Ordered Morphine Sulfate 2 mg IV, Polyethylene 17 gm PO, Nitroglycerin 0.4 mg SL, Zofran Inj 4 mg IV, Magnesium Hydroxide 30 ml PO, Maalox Max Susp 15 ml PO, Tylenol Tab 650 mg PO 2330: Ordered Ioversol 111 ml IV. Medical Decision Differential diagnosis: Etiologies such as cardiac ischemia, aortic dissection, pulmonary embolism, pneumonia, pneumothorax, musculoskeletal, infections, pericarditis, myocarditis , esophageal rupture, gastrointestinal, as well as others were entertained. This patient was evaluated and appeared to be in no significant distress. IV access was obtained and laboratory work was drawn. The patient was placed on the director cardiac and found to be in a normal sinus rhythm. Patient does have a right bundle-branch block. Laboratory work from earlier today indicate an INR of 2.6. In the emergency department today, the patient's troponin is normal. She did receive aspirin by mouth and a nitroglycerin trial. Patient had 3 separate episodes of chest pain in the ED. Given her history and age, I feel the patient should be observed for full cardiac rule out. Patient's case was discussed with the hospitalist service who evaluated the patient for further management. She is aware of the plan and agrees. Medication Reconcilliation Current Medication List: was personally reviewed by me Blood Pressure Screening Patient's blood pressure: Elevated blood pressure Blood pressure disposition: Elevated BP felt to be situational Impression Primary Impression: Substernal precordial chest pain Scribe Attestation The scribe's documentation has been prepared under my direction and personally reviewed by me in its entirety. I confirm that the note above accurately reflects all work, treatment, procedures, and medical decision making performed by me. Departure Information Dispostion Admitted as an inpatient Referrals Renzo Barker M.D. (PCP) Patient Instructions My [facility]
[2017-11-24] MEDS ORDERED: WARF3TAB6 PO ×2 (18:31)
--- NOTE | 2017-11-24 18:32 | DIAGNOSTIC IMAGING REPORT ---
CHEST ONE VIEW PORTABLE CLINICAL HISTORY: chest pain, AVR dyspnea COMPARISON STUDY: 10/01/2017 FINDINGS: The bones soft tissues and hemidiaphragms are normal. The cardiomediastinal silhouette is normal. The lungs are clear. The pulmonary vasculature is normal. IMPRESSION: Negative chest. The above report was generated using voice recognition software. It may contain grammatical, syntax or spelling errors. Electronically signed by: Tim Siegel M.D. 11/24/2017 6:31 PM Dictated Date/Time: 11/24/2017 6:30 PM
[2017-11-24] MEDS ORDERED: MELA1TAB5 PO (18:36)
[2017-11-24 18:49] LABS: BASO % 1.3 %; BASO ABS # 0.08 K/uL (0-0.2); EOS % 5.8 %; EOS ABS # 0.37 K/uL (0-0.5); HEMATOCRIT 38.1 % (37-47); HEMOGLOBIN 12.4 g/dL (12.0-16.0); IG# 0.01 K/uL (0.00-0.02); MEAN CELL VOLUME 85.6 fL (80-100); MEAN CORPUSCULAR HEMOGLOBIN 27.9 pg (25-34); MEAN CORPUSCULAR HGB CONC 32.5 g/dl (32-36); MEAN PLATELET VOLUME 9.4 fL (7.4-10.4); MONO % 9.3 %; MONO ABS # 0.59 K/uL (0.11-0.59); NEUT % 50.4 %; NEUT ABS # 3.22 K/uL (1.4-6.5); PLATELET COUNT 218 K/uL (130-400); RED CELL DISTRIBUTION WIDTH CV 16.2 % (11.5-14.5); RED CELL DISTRIBUTION WIDTH SD 51.5 fL (36.4-46.3); WHITE BLOOD COUNT 6.37 K/uL (4.8-10.8)
[2017-11-24 19:04] LABS: ALBUMIN 3.6 gm/dl (3.4-5.0); AST/SGOT 23 U/L (15-37); BLOOD UREA NITROGEN 21 mg/dl (7-18); CALCIUM 9.1 mg/dl (8.5-10.1); CARBON DIOXIDE 24 mmol/L (21-32); CREATININE 0.94 mg/dl (0.60-1.20); GLUCOSE 91 mg/dl (70-99); POTASSIUM 3.7 mmol/L (3.5-5.1); SODIUM 141 mmol/L (136-145)
[2017-11-24 19:09] LABS: ALKALINE PHOSPHATASE 102 U/L (45-117); ALT/SGPT 26 U/L (12-78); CKMB 0.9 ng/ml (0.5-3.6); TOTAL PROTEIN 7.8 gm/dl (6.4-8.2)
[2017-11-24 19:48] LABS: INFLUENZA B ANTIGEN Neg for Influ B (NEG)
[2017-11-24] MEDS ORDERED: ALUMINUM/MAGNESIUM/SIMETH (MAALOX MAX) 30 ML UDC PO PRN (23:00)
[2017-11-24] MEDS ORDERED: MAGNESIUM HYDROXIDE SUSP 30 ML UDC PO PRN (23:00)
[2017-11-24] MEDS ORDERED: ONDANSETRON INJ 2 MG/ML 2 ML VIAL IV PRN (23:00)
[2017-11-24] MEDS ORDERED: POLYETHYLENE (MIRALAX) 17 GM PACK PO PRN (23:00)
[2017-11-24] MEDS ORDERED: MoRPHine SULFATE 2 MG/ML CARP IV PRN (23:00)
[2017-11-24] MEDS ORDERED: ACETAMINOPHEN 325 MG TAB PO PRN (23:00)
[2017-11-24] MEDS ORDERED: OPTIRAY 320 IV PRN (23:30)
[2017-11-24 23:42] VITALS: O2SAT 97
[2017-11-24 23:42] LABS: INR 2.6 (0.9-1.1); PTT PATIENT 39.2 SECONDS (21.0-31.0)
--- NOTE | 2017-11-24 23:49 | History and Physical ---
History & Physical Date & Time of Service: Nov 24, 2017 at 23:48 Chief Complaint: Chest Pain And Around Ribs Primary Care Physician: Renzo Barker M.D. History of Present Illness Source: patient This is a 72 yo f with a recent history of AVR repair for severe (april 2017) PE, pericarditis, cardiac thrombus that is presenting to us with left sided chest pain. The patient states that it started over the weekend and she would suffer from intermittent sharp left sided chest pain that was non radiating. The chest pain was a 7/10 and intermittent/ short lived. No specific aggravating factors could be noted. Possibly some diaphoresis with is but no SOB or nausea that she could recall. She states that she went to her PCP to be assessed for the chest pain this afternoon and because of her recent AVR the PCP felt she could be better evaluated in the ED. She states she currently does not have any pain during the interview. Past Medical/Surgical History Medical Problems: (1) Abdominal pain Status: Resolved (2) Acute diverticulitis Status: Resolved (3) Anxiety Status: Chronic (4) Back pain Status: Resolved (5) Barretts esophagus Status: Chronic (6) Bilateral pleural effusion Status: Resolved (7) Chest pain Status: Resolved (8) Chest wall contusion Status: Resolved (9) Diverticulitis Colon (W/O Ment Of Hemorrhage) Status: Resolved (10) Diverticulosis Colon (W/O Ment Of Hemorrhage) Status: Chronic (11) Endocervical polyp Status: Resolved (12) Fall Status: Resolved (13) Gastritis Status: Resolved (14) Hemoptysis Status: Resolved (15) Hemoptysis Status: Resolved (16) Hypertension Status: Chronic (17) Hypokalemia Status: Resolved (18) Migraine Status: Chronic (19) Mild dehydration Status: Resolved (20) Mood disorder Status: Chronic (21) Patellar tendonitis Status: Chronic (22) Pericardial effusion Status: Resolved (23) Pleural effusion Status: Resolved (24) Pneumonia Status: Resolved (25) Post-menopause bleeding Status: Resolved (26) Pulmonary emboli Status: Resolved (27) Shortness of breath Status: Resolved (28) Shortness of breath Status: Resolved (29) Suicidal ideation Status: Resolved (30) Suicidal ideation Status: Resolved (31) Thrush, oral Status: Resolved (32) Weakness Status: Resolved Surgical Problems: (1) back surgery Status: Resolved (2) H/O aortic valve replacement Status: Resolved (3) Hx of cholecystectomy Status: Resolved Family History Diabetes mellitus FH: cancer FH: heart disease FH: lung disease Gallbladder disease Hypertension Kidney disease Kidney stones Social History Smoking Status: Never Smoker Smokeless Tobacco Use: No Alcohol Use: none Drug Use: none Marital Status: Housing status: lives with significant other Occupational Status: retired Immunizations History of Influenza Vaccine: Yes History of Tetanus Vaccine?: No History of Pneumococcal: Yes History of Hepatitis B Vaccine: No Multi-Drug Resistant Organisms History of MDRO: No Allergies Coded Allergies: Niacin (Verified Allergy, Intermediate, RASH, 11/24/17) Atorvastatin (Verified Adverse Reaction, Mild, MUSCLE ACHES, 11/24/17) Diltiazem (Verified Adverse Reaction, Mild, HEADACHE, 11/24/17) Home Medications Scheduled Amlodipine Besylate (Amlodipine Besylate), 1 TAB PO QAM Aspirin (Aspirin Ec), 81 MG PO QAM Baclofen (Baclofen), 10 MG PO BID Cholecalciferol (Vitamin D3), 2,000 INTER.UNIT PO QAM Clonazepam (Clonazepam), 0.5 MG PO HS Colchicine (Colchicine), 0.6 MG PO BID Lisinopril (Zestril), 40 MG PO DAILY Melatonin (Kp Melatonin), 1.5 MG PO HS Pantoprazole (Pantoprazole Sodium), 40 MG PO BID Ranitidine Hcl (Zantac), 150 MG PO BID Rosuvastatin Calcium (Rosuvastatin Calcium), 20 MG PO DAILY Warfarin Sod (Jantoven), 3 MG PO TuTh Warfarin Sod (Jantoven), 4.5 MG PO SuMoWeFrSa Scheduled PRN Clonazepam (Klonopin), 0.25 MG PO DAILY PRN for Anxiety/Agitation Tramadol (Ultram), 50 MG PO Q4H PRN for Pain Review of Systems Constitutional: No fever, No chills, No sweats Eyes: No worsening of vision ENT: No hearing loss Respiratory: No cough, No sputum, No wheezing, No shortness of breath, No dyspnea on exertion, No dyspnea at rest Cardiovascular: + chest pain Abdomen: No pain, No nausea, No vomiting, No diarrhea, No constipation Musculoskeletal: No joint pain, No muscle pain Genitourinary - Female: No dysuria, No hematuria Neurologic: No weakness, No numbness/tingling, No balance problems Psychiatric: No depression symptoms Endocrine: No fatigue Hematologic / Lymphatic: No abnormal bleeding/bruising Integumentary: No rash Physical Exam Vital Signs Date Time Temp Pulse Resp B/P (MAP) Pulse Ox O2 Delivery O2 Flow Rate FiO2 11/24/17 23:42 64 16 160/77 97 Room Air 11/24/17 22:04 65 11/24/17 21:31 65 16 165/101 97 Room Air 11/24/17 18:59 61 16 147/78 97 Room Air 11/24/17 18:23 97 Room Air 11/24/17 18:05 86 11/24/17 17:48 97 Room Air 11/24/17 17:38 36.7 70 18 155/95 98 Room Air General Appearance: no apparent distress Head: normocephalic, atraumatic Eyes: normal inspection ENT: normal ENT inspection Neck: supple Respiratory/Chest: normal breath sounds, no respiratory distress, no accessory muscle use Cardiovascular: regular rate, rhythm, normal peripheral pulses, + systolic murmur (2/6) Abdomen/GI: normal bowel sounds, non tender, soft Back: normal inspection, no CVA tenderness, normal range of motion Extremities/Musculoskelatal: no calf tenderness, no pedal edema, normal range of motion Neurologic/Psych: alert, normal mood/affect, oriented x 3 Skin: normal color, warm/dry, no rash Lymphatic: no adenopathy Diagnostics Laboratory Results Results Past 24 Hours Test 11/24/17 18:40 11/24/17 18:44 11/24/17 19:10 11/24/17 20:33 Range/Units White Blood Count 6.37 4.8-10.8 K/uL Red Blood Count 4.45 4.2-5.4 M/uL Hemoglobin 12.4 12.0-16.0 g/dL Hematocrit 38.1 37-47 % Mean Corpuscular Volume 85.6 80-100 fL Mean Corpuscular Hemoglobin 27.9 25-34 pg Mean Corpuscular Hemoglobin Concent 32.5 32-36 g/dl Platelet Count 218 130-400 K/uL Mean Platelet Volume 9.4 7.4-10.4 fL Neutrophils (%) (Auto) 50.4 % Lymphocytes (%) (Auto) 33.0 % Monocytes (%) (Auto) 9.3 % Eosinophils (%) (Auto) 5.8 % Basophils (%) (Auto) 1.3 % Neutrophils # (Auto) 3.22 1.4-6.5 K/uL Lymphocytes # (Auto) 2.10 1.2-3.4 K/uL Monocytes # (Auto) 0.59 0.11-0.59 K/uL Eosinophils # (Auto) 0.37 0-0.5 K/uL Basophils # (Auto) 0.08 0-0.2 K/uL RDW Standard Deviation 51.5 36.4-46.3 fL RDW Coefficient of Variation 16.2 11.5-14.5 % Immature Granulocyte % (Auto) 0.2 % Immature Granulocyte # (Auto) 0.01 0.00-0.02 K/uL Prothrombin Time 26.7 9.0-12.0 SECONDS Prothromb Time International Ratio 2.6 0.9-1.1 Activated Partial Thromboplast Time 39.2 21.0-31.0 SECONDS Partial Thromboplastin Ratio 1.5 Sodium Level 141 136-145 mmol/L Potassium Level 3.7 3.5-5.1 mmol/L Chloride Level 109 98-107 mmol/L Carbon Dioxide Level 24 21-32 mmol/L Anion Gap 8.0 3-11 mmol/L Blood Urea Nitrogen 21 7-18 mg/dl Creatinine 0.94 0.60-1.20 mg/dl Est Creatinine Clear Calc Drug Dose 59.7 ml/min Estimated GFR () 70.7 Estimated GFR (Non- 61.0 BUN/Creatinine Ratio 22.6 10-20 Random Glucose 91 70-99 mg/dl Calcium Level 9.1 8.5-10.1 mg/dl Magnesium Level 2.1 1.8-2.4 mg/dl Total Bilirubin 0.3 0.2-1 mg/dl Direct Bilirubin < 0.1 0-0.2 mg/dl Aspartate Amino Transf (AST/SGOT) 23 15-37 U/L Alanine Aminotransferase (ALT/SGPT) 26 12-78 U/L Alkaline Phosphatase 102 45-117 U/L Total Creatine Kinase 89 26-192 U/L Creatine Kinase MB 0.9 0.5-3.6 ng/ml Creatine Kinase MB Ratio 1.0 0-3.0 Total Protein 7.8 6.4-8.2 gm/dl Albumin 3.6 3.4-5.0 gm/dl Bedside Troponin I < 0.030 < 0.030 0-0.045 ng/ml Influenza Type A Antigen Neg for Influ A NEG Influenza Type B Antigen Neg for Influ B NEG Diagnostic Radiology [~ rep ct add3]] CHEST ONE VIEW PORTABLE CLINICAL HISTORY: chest pain, AVR dyspnea COMPARISON STUDY: 10/01/2017 FINDINGS: The bones soft tissues and hemidiaphragms are normal. The cardiomediastinal silhouette is normal. The lungs are clear. The pulmonary vasculature is normal. IMPRESSION: Negative chest. CHEST ONE VIEW PORTABLE CLINICAL HISTORY: Fever. Chest tightness. COMPARISON STUDY: Chest CT June 16, 2017 and chest radiograph June 18, 2017 FINDINGS: Elevation of the right hemidiaphragm is unchanged. There is no pneumothorax. Small bilateral pleural effusions persist. Left basilar opacity is increased. There is pleural vascular congestion without overt pulmonary edema. Enlargement of the cardiac silhouette is unchanged. IMPRESSION: 1. Persistent bilateral pleural effusions with associated bibasilar opacities. Left basilar opacity is increased since prior exam. Atelectasis is favored although consolidation could appear similar. 2. Pulmonary vascular congestion without evidence of pulmonary edema. EKG Normal sinus rhythm Right bundle branch block Minimal voltage criteria for LVH, may be normal variant Abnormal ECG When compared with ECG of 01-OCT-2017 08:19, No significant change was found Confirmed by LEONIDAS ECHEVERRIA ([id number]) on 11/24/2017 7:18:22 PM Impression Assessment and Plan This is a 72 yo f with a recent history of aortic stenosis repair with non mechanical valve and multiple sequelae following surgery including PE that is presenting to us with a " new" non reproducible with palpation left sided chest pain concerning for cardiac origin Chest pain NYD; history of pericarditis, PE and AVR - tele admission - obs - CTA negative, repeat troponin negative - echo and ekg in am - cvs consult at discrimination of day team H/o PE/ cardiac thrombus - INR therapeutic - repeat in AM - continue 3 mg warfarin Pericarditis in recent past - continue Colchicine 0.6 mg bid - ibuprofen 400 mg daily held am dose until r/o cardiac GERD/ Smith's esophagus - pantoprazole and zantac cont'd Anxiety Klonopin 0.25 mg bid prn HTN / hyperlipidemia - Lisinopril 40 mg and amlodipine 10 mg cont - cont rosuvastatin 20 mg - asa 81 mg daily Back spasms - Baclofen 10 mg daily DVT prophylaxis warfarin FULL CODE jehovah witness, no blood transfusions Attending addendum: I have physically seen this patient, have supervised the medical residents activities, and agree with the H&P unless as otherwise noted. Assessment and Plan: Chest pain/hypertension/history of pericarditis/PE/status post aVR-- The patient will be admitted to telemetry for serial cardiac enzymes, serial EKG's, cardiac rhythm monitoring and a 2-D echocardiogram with Dopplers. Continue warfarin 3 mg, therapeutic INR Continue lisinopril 10 mg daily, amlodipine 10 mg daily and aspirin 81 mg daily. Continue colchicine 0.6 mg by mouth twice a day No NSAIDs during cardiac assessment. Level of Care Telemetry Advanced Directives Existing Advance Directive: No Existing Living Will: No Existing Power of Aquarist: No Resuscitation Status FULL RESUSCITATION VTE Prophylaxis VTE Risk Assessment Done? Y/N: Yes Risk Level: Moderate Given or contraindicated: Warfarin (Coumadin) Social Service Consult None Apply Note Total Time: Critical Care 30 - 74 minutes Additional Copies To Renzo Barker M.D.
[2017-11-25] MEDS ORDERED: IV FLUIDS COMPLETED PRN (00:30)
[2017-11-25 00:42] VITALS: BP 155/84; PULSE 71; TEMP 36.6; Ht 160 cm; Wt 92.6 kg
[2017-11-25] MEDS ORDERED: TRAMADOL HCL 50 MG TAB PO PRN (01:45)
[2017-11-25] MEDS ORDERED: CLONAZEPAM 0.5 MG TAB PO PRN (01:45)
[2017-11-25 05:09] VITALS: BP 116/78; PULSE 87; TEMP 36.9; O2SAT 95
[2017-11-25 05:51] LABS: BASO % 0.9 %; BASO ABS # 0.06 K/uL (0-0.2); EOS ABS # 0.32 K/uL (0-0.5); HEMATOCRIT 36.6 % (37-47); HEMOGLOBIN 11.7 g/dL (12.0-16.0); IG# 0.01 K/uL (0.00-0.02); LYMPH % 31.6 %; LYMPH ABS # 2.03 K/uL (1.2-3.4); MEAN CELL VOLUME 86.3 fL (80-100); MEAN CORPUSCULAR HEMOGLOBIN 27.6 pg (25-34); MEAN PLATELET VOLUME 9.6 fL (7.4-10.4); MONO % 9.8 %; MONO ABS # 0.63 K/uL (0.11-0.59); NEUT % 52.5 %; NEUT ABS # 3.37 K/uL (1.4-6.5); PLATELET COUNT 218 K/uL (130-400); RED CELL DISTRIBUTION WIDTH CV 16.4 % (11.5-14.5); RED CELL DISTRIBUTION WIDTH SD 51.8 fL (36.4-46.3); WHITE BLOOD COUNT 6.42 K/uL (4.8-10.8)
[2017-11-25 05:59] LABS: INR 2.6 (0.9-1.1); PTT PATIENT 37.7 SECONDS (21.0-31.0)
[2017-11-25] MEDS ORDERED: SODIUM CHLORIDE 0.65% NA SOLN 45 ML (OCEAN) ONE (06:22)
[2017-11-25] MEDS ORDERED: NURSING DECISION MEDICATION ORDER SCH (06:30)
[2017-11-25] MEDS ORDERED: SODIUM CHLORIDE 0.65% NA SOLN 45 ML (OCEAN) PRN (06:30)
[2017-11-25 06:33] LABS: CALCIUM 9.1 mg/dl (8.5-10.1); CREATININE 0.91 mg/dl (0.60-1.20); POTASSIUM 3.5 mmol/L (3.5-5.1)
[2017-11-25 07:20] VITALS: BP 141/72; PULSE 74; TEMP 36.5; O2SAT 93
--- NOTE | 2017-11-25 07:21 | DIAGNOSTIC IMAGING REPORT ---
(CHEST FOR PE) ANGIO WITH CT DOSE: 479.93 mGy.cm HISTORY: 72 years-old Female presents with acute atypical chest pain TECHNIQUE: Multiple CTA images of the chest were obtained after the intravenous administration of 93 ml Optiray 320. Coronal and sagittal MIPS were obtained from the axial data set and were submitted for review. A dose lowering technique was utilized adhering to the principles of ALARA. COMPARISON: Chest radiograph of same day, CT chest 09/22/2017. FINDINGS: CTA: Heart is mildly enlarged. Prosthetic aortic valve is noted along with coronary arterial disease. The thoracic aorta is normal in both course and caliber without aneurysm or dissection. Mild to moderate mixed plaquing of the thoracic aorta with imaged great vessels patent. The pulmonary arterial tree is well-opacified to the level of the proximal subsegmental branches and demonstrates no focal filling defects to suggest pulmonary thromboembolic disease. CT CHEST: Thyroid appears homogeneous. No pathologic-appearing adenopathy of the chest. There is no pneumothorax or pleural effusion. No suspicious pulmonary nodules or masses identified. Reticular and linear subsegmental consolidative opacities are seen within the lung bases suggesting areas of scarring/atelectasis. Area of chronic subsegmental scarring is again seen within the right lung apex. No lobar airspace consolidations to suggest pneumonia. The central airways appear patent. No acute abnormality of the imaged upper abdomen. Small sliding-type hiatal hernia. There is a fatty attenuating lesion within the distribution of the left subscapularis musculature, 3.7 x 2.4 cm suggesting intramuscular lipoma. Soft tissues are otherwise unremarkable. Bones appear intact. Degenerative changes involve the bilateral glenohumeral joints with multilevel degenerative changes of the spine. IMPRESSION: 1. No acute intrathoracic abnormality identified, specifically no acute aortic pathology or evidence of pulmonary thromboembolic disease. 2. Mild cardiomegaly with prosthetic aortic valve. 3. No lobar airspace consolidation to suggest pneumonia. 4. Small sliding type hiatal hernia. The above report was generated using voice recognition software. It may contain grammatical, syntax or spelling errors. Electronically signed by: Demario Vargas M.D. 11/25/2017 7:19 AM Dictated Date/Time: 11/25/2017 7:14 AM
[2017-11-25] MEDS ORDERED: COLCHICINE 0.6 MG TAB PO SCH (09:00)
[2017-11-25] MEDS ORDERED: ROSUVASTATIN CALCIUM 20 MG TAB PO SCH (09:00)
[2017-11-25] MEDS ORDERED: RANITIDINE HCL 150 MG TAB PO SCH (09:00)
[2017-11-25] MEDS ORDERED: BACLOFEN 10 MG TAB PO SCH (09:00)
[2017-11-25] MEDS ORDERED: PANTOprazole SOD 40 MG TAB PO SCH (09:00)
[2017-11-25] MEDS ORDERED: LISINOPRIL 40 MG TAB PO SCH (09:00)
[2017-11-25] MEDS ORDERED: CHOLECALCIFEROL 1000 INTER.UNIT TAB PO SCH (09:00)
[2017-11-25] MEDS ORDERED: ASPIRIN 81 MG ECTAB PO SCH (09:00)
[2017-11-25] MEDS ORDERED: AMLODIPINE BESYLATE 5 MG TAB PO SCH (09:00)
--- NOTE | 2017-11-25 11:36 | ECHOCARDIOGRAM REPORT ---
*NOTICE TO RECEIVING REPUBLICAN AGENCY This information is strictly Confidential and protected under [place] law. [place] law prohibits you from making any further disclosure of this information unless further disclosure is expressly permitted by the written consent of the person to whom it pertains or is authorized by law. A general authorization for the release of medical or other information is not sufficient for this purpose. Hospital accepts no responsibility if the information is made available to any other person, INCLUDING THE PATIENT. Interpretation Summary * Name: NEY VALDOVINOS Study Date: 11/25/2017 06:39 AM BP: 141/72 mmHg * Patient Location: [facility] HR: 74 * : 1945 (M/d/yyyy) Gender: Female Height: 63 in * Age: 72 yrs Ethnicity: CA Weight: 206 lb * Ordering Physician: Berna Gruber * Referring Physician: Renzo Barker. * Performed By: Rosalina Beard RDCS * * Reason For Study: CHEST PAIN * BSA: 2.0 m2 * -- Conclusions -- * 1. Normal LV size, mild concentric LVH. * 2. Normal LV systolic function. LVEF 60-65%. No regional wall motion abnormalities. * 3. Normal RV size and function. * 4. Grade I diastolic dysfunction. * 5. Well seated bioprosthetic aortic valve with expected transvalvular gradients. No AI. * 6. Mild mitral regurgitation. * 7. Moderate tricupsid regurgitation. Normal estimated PA and RA pressures. * 8. Compared with prior study on 07/06/2017: Pericardial effusion has resolved. Procedure Details * A contrast injection of Definity was performed to improve assessment of LV function. * Contrast was injected into an intravenous site in the left arm. * One vial of Definity ultrasound contrast was diluted in normal saline to a total volume of 10 ml. A total of '1' ml of solution was administered during imaging. * Lot # [id number] of Definity utilized for procedure. * Expiration date NOV 21. * The attending nurse who injected the contrast agent was KARINA KISER RN. Left Ventricle * The left ventricle is grossly normal size. * There is mild concentric left ventricular hypertrophy. * Ejection Fraction = 60-65%. * No regional wall motion abnormalities noted. Right Ventricle * The right ventricle is grossly normal size. * There is mild right ventricular hypertrophy. * The right ventricular systolic function is normal as assessed by tricuspid annular plane systolic excursion (TAPSE) (normal >1.5 cm). Atria * The left atrium is moderately dilated. * The right atrium is mildly dilated. * No ASD detected; PFO is not assessed. Mitral Valve * There is mild mitral annular calcification. * There is no mitral valve stenosis. * There is mild mitral regurgitation. Tricuspid Valve * There is moderate tricuspid regurgitation. * Right ventricular systolic pressure is elevated at 30-40mmHg. Aortic Valve * There is no significant aortic regurgitation. * Bioprosthetic leaflets are thick and move well. Pulmonic Valve * The pulmonary valve is inadequately visualized, but the Doppler data is adequate for interpretation. * There is no pulmonic valvular stenosis. * Trace pulmonic valvular regurgitation. Great Vessels * The aortic root and proximal ascending aorta are normal sized. Pericardium/Pleural * There is no pericardial effusion. Great Vessels * Normal inferior vena cava size and collapsability with sniff indicates a normal right atrial pressure of 3 mmHg Left Ventricular Diastolic Function * Grade I diastolic dysfunction, (abnormal relaxation pattern). MMode 2D Measurements and Calculations IVSd 1.4 cm IVSs 2.0 cm LVIDd 4.3 cm LVIDs 2.8 cm LVPWd 1.5 cm LVPWs 2.0 cm IVS/LVPW 0.93 FS 34.5 % EDV(Teich) 84.9 ml ESV(Teich) 30.7 ml EF(Teich) 63.9 % EDV(cubed) 81.8 ml ESV(cubed) 23.0 ml EF(cubed) 71.9 % % IVS thick 41.7 % % LVPW thick 35.8 % LV mass(C)d 247.2 grams LV mass(C)dI 126.2 grams/m\S\2 LV mass(C)s 248.9 grams LV mass(C)sI 127.1 grams/m\S\2 SV(Teich) 54.3 ml SI(Teich) 27.7 ml/m\S\2 SV(cubed) 58.8 ml SI(cubed) 30.0 ml/m\S\2 Ao root diam 2.8 cm Ao root area 6.2 cm\S\2 LA dimension 4.2 cm LA/Ao 1.5 LVAd ap4 33.0 cm\S\2 LVLd ap4 8.4 cm EDV(MOD-sp4) 107.5 ml EDV(sp4-el) 110.1 ml LVAs ap4 18.4 cm\S\2 LVLs ap4 6.9 cm ESV(MOD-sp4) 41.8 ml ESV(sp4-el) 41.6 ml EF(MOD-sp4) 61.1 % EF(sp4-el) 62.2 % LVAd ap2 33.2 cm\S\2 LVLd ap2 8.7 cm EDV(MOD-sp2) 101.6 ml EDV(sp2-el) 107.2 ml LVAs ap2 18.0 cm\S\2 LVLs ap2 6.9 cm ESV(MOD-sp2) 38.6 ml ESV(sp2-el) 39.8 ml EF(MOD-sp2) 62.0 % EF(sp2-el) 62.9 % LVLd %diff 3.6 % EDV(MOD-bp) 106.3 ml LVLs %diff -0.06 % ESV(MOD-bp) 39.9 ml EF(MOD-bp) 62.5 % SV(MOD-sp4) 65.6 ml SI(MOD-sp4) 33.5 ml/m\S\2 SV(MOD-sp2) 63.0 ml SI(MOD-sp2) 32.2 ml/m\S\2 SV(MOD-bp) 66.4 ml SI(MOD-bp) 33.9 ml/m\S\2 SV(sp4-el) 68.5 ml SI(sp4-el) 35.0 ml/m\S\2 SV(sp2-el) 67.5 ml SI(sp2-el) 34.5 ml/m\S\2 Doppler Measurements and Calculations MV E max enriqueta 103.0 cm/sec MV A max enriqueta 112.6 cm/sec MV E/A 0.91 MV dec time 0.26 sec Ao V2 max 221.3 cm/sec Ao max PG 19.6 mmHg Ao max PG (full) 16.5 mmHg Ao V2 mean 150.1 cm/sec Ao mean PG 10.2 mmHg Ao mean PG (full) 8.4 mmHg Ao V2 VTI 47.3 cm LV V1 max PG 3.1 mmHg LV V1 mean PG 1.8 mmHg LV V1 max 87.7 cm/sec LV V1 mean 62.0 cm/sec LV V1 VTI 25.0 cm SV(Ao) 292.4 ml SI(Ao) 149.3 ml/m\S\2 TR max enriqueta 268.8 cm/sec
[2017-11-25 11:37] VITALS: BP 158/84; PULSE 87; TEMP 36.7; O2SAT 96
--- NOTE | 2017-11-25 14:11 | Discharge Instructions ---
Discharge Instructions Date of Service Nov 25, 2017. Admission Reason for Admission: Atypical Angina, Left Sided Chest Pain Discharge Discharge Diagnosis / Problem: musclo-skeletal chest pain, breast pain Discharge Goals Goal(s): Decrease discomfort Activity Recommendations Activity Limitations: resume your previous activity . Current Hospital Diet Patient's current hospital diet: AHA Diet (Heart Healthy) Discharge Diet Recommended Diet: AHA Diet (Heart Healthy) Pending Studies Studies pending at discharge: yes List of pending studies: needs to do bilateral mamogram within the next 2 weeks Medical Emergencies . Who to Call and When: Medical Emergencies: If at any time you feel your situation is an emergency, please call 911 immediately. . Non-Emergent Contact Non-Emergency issues call your: Primary Care Provider . . "Provider Documentation" section prepared by Yuliet Ballesteros. . VTE Core Measure Inpt VTE Proph given/why not?: Warfarin (Coumadin)
[2017-11-25 14:16] VITALS: BP 158/84; PULSE 87; TEMP 36.7; O2SAT 96
--- NOTE | 2017-11-25 15:33 | CARDIOLOGY CONSULTATION ---
DATE OF CONSULTATION: 11/25/2017 DATE OF CONSULTATION: 11/25/2017 CONSULTATION REQUESTED BY: Dr. Michel. REASON FOR CONSULTATION: Chest pain. HISTORY OF PRESENT ILLNESS: Mrs. Madsen is a very pleasant 72-year-old woman known to me from prior hospitalizations and the outpatient setting with a history of severe aortic stenosis, status post minimally invasive bioprosthetic AVR in April of 2017, who was readmitted yesterday in the setting of some left-sided chest discomfort. The patient had a complicated course post her AVR back in April. She had multiple admissions in the setting of pericarditis and subsegmental PE. With that, she had recurrent pain that was difficult to manage. More recently, though she has been doing well, has been exercising with cardiac rehab and has endorsed only mild residual pain at the site of her incision. Over the last week or so, she reports intermittent left-sided sharp chest pain which lasted for seconds before going away. She has had taken intermittent tramadol for the pain. Denies any other associated nausea, vomiting, fevers, chills. This pain is not similar to what she had over the summer. She presented to the ED at the instruction of her PCP. Workup while here has included chest x-ray which showed no acute cardiopulmonary process, a CT scan which was negative for acute intrathoracic process and echocardiogram obtained today which showed preserved LV function, no significant pericardial effusion and well-functioning aortic valve. Troponins have been negative and EKG is unchanged. Today, she continues to endorse some mild intermittent left-sided chest pain but states that overall she is otherwise feeling well. PAST MEDICAL HISTORY: 1. Severe aortic stenosis status post minimally invasive bioprosthetic AVR with a right thoracotomy on 04/11/2017. This was complicated by subsegmental PE which has been on anticoagulation. 2. Post-cardiac surgery pericarditis. 3. Hypertension. 4. Dyslipidemia. 5. Obstructive sleep apnea. 6. GERD. 7. Heterozygous prothrombin gene mutation. 8. Mild nonobstructive coronary artery disease. SOCIAL HISTORY: She lives with her , does not work, does not smoke, does not drink. No other illicit drugs. HOME MEDICATIONS: Include Protonix 40, clonazepam 0.5, baclofen, aspirin 81, tramadol, carvedilol 3.215 b.i.d., ranitidine, Crestor 20 mg daily, amlodipine 5 daily, lisinopril 40 mg daily, mirtazapine, vitamin D and colchicine, which recently discontinued as well as warfarin with goal INR 2-3. FAMILY HISTORY: Noncontributory. ALLERGIES: ALLERGIC TO CARDIA, LIPITOR AND NIASPAN. REVIEW OF SYSTEMS: Otherwise negative unless stated in HPI. PHYSICAL EXAMINATION: VITAL SIGNS: Temperature 36.7, pulse 87, blood pressure 158/84. She is satting 96% on room air. GENERAL: The patient looks well in no acute distress. HEAD, EYES, EARS, NOSE, AND THROAT: Sclerae are anicteric. Oropharynx is clear. Mucous membranes are moist. NECK: Supple with no jugular venous distention. LUNGS: Clear to auscultation bilaterally. CARDIAC: She had a crisp bioprosthetic closure sound with no appreciable murmurs. ABDOMEN: Soft, nontender. EXTREMITIES: Warm without any significant lower extremity edema, intact distal pulses. SKIN: Showed no rashes or lesions. NEUROLOGIC: Nonfocal. PSYCHIATRIC: Alert and oriented and appropriate. LABORATORY DATA: White blood cell count 6.4, hemoglobin 11.7, platelets of 218. INR was 2.6, sodium 141, potassium 3.5, BUN 21, creatinine 0.9. Troponins have been negative x3. EKG shows sinus rhythm with a right bundle branch block and no dynamic ST changes. Echocardiogram showed EF of 60-65%, well functioning bioprosthetic aortic valve, mild LVH with grade 1 diastolic dysfunction, no regional wall motion abnormalities. No pericardial effusion. IMPRESSION AND PLAN: 1. Atypical chest pain. 2. Severe aortic stenosis, status post bioprosthetic aortic valve replacement. 3. Subsegmental pulmonary embolism 6 months ago. 4. Post-cardiac surgery pericarditis. 5. Hypertension. 6. Anxiety. Mrs. Madsen is here with new atypical chest pain. This pain is different than what she previously had with her PE and pericarditis. I have reviewed her in-hospital imaging including CT scan and echocardiogram. No concerning findings and low suspicion that this represents ACS or recurrent pericarditis. Reassured patient that I felt that her atypical chest pain is benign and she is interested in going home. Can followup with Dr. Barker and myself in 1-2 months. Going forward, the patient is now 6 months out from her subsegmental PE, previous discussed stopping her Coumadin and feel that this is appropriate at this time. Otherwise, she is no longer taking colchicine for pericarditis. Recommend symptomatic/conservative management with NSAIDs/Tylenol for her atypical pain. Thank you for consultation. DIAMOND
[2017-11-25] MEDS ORDERED: WARFARIN SOD 3 MG TAB PO SCH (16:00)
--- NOTE | 2017-11-25 19:28 | Discharge Summary ---
Discharge Summary Date of Service Nov 25, 2017. Discharge Summary Admission Date: Nov 24, 2017 at 22:53 Discharge Date: Nov 25, 2017 Discharge Disposition: Home Principal Diagnosis: musculoskeletal chest pain Problems/Secondary Diagnoses: (1) Anxiety Status: Chronic (2) Barretts esophagus Status: Chronic (3) Diverticulosis Colon (W/O Ment Of Hemorrhage) Status: Chronic (4) Hypertension Status: Chronic (5) Migraine Status: Chronic (6) Mood disorder Status: Chronic (7) Patellar tendonitis 8-history of pulmonary embolism. 9-history of aortic stenosis status post repair 10-history of pericarditis Status: Chronic Immunizations: Have You Had Influenza Vaccine: Yes History of Tetanus Vaccine?: No History of Pneumococcal: Yes History of Hepatitis B Vaccine: No Medication Reconciliation Continued Medications: Amlodipine Besylate (Amlodipine Besylate) 5 Mg Tab 1 TAB PO QAM Aspirin (Aspirin Ec) 81 Mg Tab 81 MG PO QAM Baclofen (Baclofen) 10 Mg Tab 10 MG PO BID Cholecalciferol (Vitamin D3) 2,000 Unit Cap 2000 INTER.UNIT PO QAM Clonazepam (Klonopin) 0.5 Mg Tab 0.25 MG PO DAILY PRN for Anxiety/Agitation Clonazepam (Clonazepam) 0.5 Mg Tab 0.5 MG PO HS Colchicine (Colchicine) 0.6 Mg Tab 0.6 MG PO BID Lisinopril (Zestril) 40 Mg Tab 40 MG PO DAILY, TAB Melatonin (Kp Melatonin) 3 Mg Tab 1.5 MG PO HS Pantoprazole (Pantoprazole Sodium) 40 Mg Tab 40 MG PO BID Ranitidine Hcl (Zantac) 150 Mg Tab 150 MG PO BID Rosuvastatin Calcium (Rosuvastatin Calcium) 20 Mg Tab 20 MG PO DAILY Tramadol (Ultram) 50 Mg Tab 50 MG PO Q4H PRN for Pain, TAB Warfarin Sod (Jantoven) 3 Mg Tab 3 MG PO TuTh Warfarin Sod (Jantoven) 3 Mg Tab 4.5 MG PO SuMoWeFrSa Discontinued Medications: Ibuprofen (Motrin) 400 Mg Tab 400 MG PO DAILY PRN Discharge Exam Review of Systems: Constitutional: No fever, No chills, No sweats, No weight loss, No weakness , No fatigue, No problem reported Eyes: No worsening of vision, No eye pain, No redness, No discharge, No diplopia, No problem reported ENT: No hearing loss, No unusual epistaxis, No nasal symptoms, No sore throat, No tinnitus, No dental problems, No trouble swallowing, No problem reported Respiratory: No cough, No sputum, No wheezing, No shortness of breath, No dyspnea on exertion, No dyspnea at rest, No hemoptysis, No problem reported Cardiovascular: No chest pain, No orthopnea, No PND, No edema, No claudication, No palpitations, No problem reported Abdomen: No pain, No nausea, No vomiting, No diarrhea, No constipation, No GI bleeding, No problem reported Musculoskeletal: No joint pain, No muscle pain, No swelling, No calf pain, No problem reported Genitourinary - Female: No dysuria, No urinary frequency, No urinary urgency , No urinary incontinence, No urinary retention, No hematuria, No dysmenorrhea, No menorrhagia, No metrorrhagia, No rash, No vaginal bleeding, No vaginal discharge, No vaginal itching, No vulvodynia, No , No problem reported Genitourinary - Male: No hematuria, No dysuria, No urinary frequency, No urinary urgency, No urinary hesitancy, No urinary retention, No urinary incontinence, No penile discharge, No lesions, No impotence, No problem reported Neurologic: No memory loss, No paralysis, No weakness, No numbness/tingling , No vertigo, No balance problems, No problem reported Psychiatric: No depression symptoms, No anhedonism, No anxiety, No insomnia , No substance abuse, No problem reported Endocrine: No fatigue, No excessive thirst, No excessive urination, No problem reported Hematologic / Lymphatic: No abnormal bleeding/bruising, No clotting problems , No swollen lymph nodes, No night sweats, No problem reported Integumentary: No rash, No itch, No new/changing skin lesions, No color change, No bleeding, No problem reported Physical Exam: General Appearance: WD/WN, no apparent distress Eyes: normal inspection, EOMI ENT: normal ENT inspection, hearing grossly normal Neck: supple Respiratory/Chest: chest non-tender, lungs clear, normal breath sounds, no respiratory distress, no accessory muscle use Cardiovascular: regular rate, rhythm, no edema, no gallop, no JVD, no murmur , normal peripheral pulses Abdomen / GI: normal bowel sounds, non tender, soft, no organomegaly, no pulsatile mass Extremities: normal inspection, no calf tenderness, normal capillary refill , no pedal edema, normal range of motion 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 She was admitted to telemetry CPK troponin and EKG were unchanged Due to her history of PE, CT angiogram was done and was negative for pulmonary embolism stated that she has been having chest pain on the right side since his surgery. Seen by multicut line operator and cleared for discharge 2-D echo showed no pericardial effusion. Due to her Smith's esophagus and being on anticoagulation her ibuprofen that she was taking for pericarditis was discontinued, she will be only on colchicine. Patient was found to be within acceptable stability for discharge. Total Time Spent: Greater than 30 minutes This includes examination of the patient, discharge planning, medication reconciliation, and communication with other providers. Discharge Instructions Please refer to the electronic Patient Visit Report (Discharge Instructions) for additional information.
[2017-11-25] MEDS ORDERED: MELATONIN 1.5 MG PO SCH (21:00)
[2017-11-25] MEDS ORDERED: CLONAZEPAM 0.5 MG TAB PO SCH (21:00)
[2017-11-26] MEDS ORDERED: WARFARIN SOD 3 MG TAB PO SCH (01:45)
[2017-11-26] MEDS ORDERED: WARFARIN TAB 2 MG, WARFARIN TAB 2.5 MG PO SCH ×2 (16:00)
== END 2017-11-25 14:58 | disposition home or self-care (01) ==
LOC: C.EDB 17:29 → C.MED 22:53 → ENRESERV 23:41
PROVIDERS: ADMIT Student in an Organized Health Care Education/Training Program; ATTEND Hospitalist
DX: R07.89 Other chest pain (principal); F41.9 Anxiety disorder, unspecified; K22.70 Barrett's esophagus without dysplasia; I35.0 Nonrheumatic aortic (valve) stenosis; I25.10 Atherosclerotic heart disease of native coronary artery without angina pectoris; K21.9 Gastro-esophageal reflux disease without esophagitis; I10 Essential (primary) hypertension; E78.5 Hyperlipidemia, unspecified; G47.33 Obstructive sleep apnea (adult) (pediatric); Z86.711 Personal history of pulmonary embolism; Z98.890 Other specified postprocedural states; Z79.4 Long term (current) use of insulin; Z79.899 Other long term (current) drug therapy; Z79.01 Long term (current) use of anticoagulants; Z90.49 Acquired absence of other specified parts of digestive tract; Z83.3 Family history of diabetes mellitus; Z82.49 Family history of ischemic heart disease and other diseases of the circulatory system; Z84.1 Family history of disorders of kidney and ureter

== ENCOUNTER → 2017-12-08 | Outpatient (CLI) | payer BC ==
[~2017-12-08] MED LIST changes: +CARV3.12 PO; -COLC1TAB25 PO; -CRFL PO; -CRG3125 PO; +IBUP-1105 PO; -IBUP-1459 PO; +MELA1TAB5 PO; -MIRT15TA PO; -WARF-285 PO
--- NOTE | 2017-12-08 15:04 | MAMMOGRAPHY REPORT ---
BILATERAL DIGITAL SCREENING MAMMOGRAM TOMOSYNTHESIS WITH CAD: 12/08/2017 CLINICAL HISTORY: Routine screening. TECHNIQUE: Breast tomosynthesis in addition to standard 2D mammography was performed. Current study was also evaluated with a Computer Aided Detection (CAD) system. COMPARISON: Comparison is made to exams dated: 07/11/2016 mammogram, 04/25/2016 mammogram, 09/06/2015 ma mmogram, 10/08/2013 mammogram, 02/21/2011 mammogram, and 09/20/2009 mammogram - [facility] enter. BREAST COMPOSITION: There are scattered areas of fibroglandular density in both breasts. FINDINGS: The MLO views are slightly suboptimal due to inability of the patient adequately position f or the exam given recent chest surgery. Within this limitation, there are stable benign round and ri m calcifications scattered bilaterally. No new suspicious mass, architectural distortion or cluster of suspicious microcalcifications is seen. IMPRESSION: ACR BI-RADS CATEGORY 1: NEGATIVE There is no mammographic evidence of malignancy. A 1 year screening mammogram is recommended. The pa tient will receive written notification of the results. Approximately 10% of breast cancers are not detected with mammography. A negative mammographic report should not delay biopsy if a clinically suggestive mass is present. Brigitte Thakur M.D. ay/:12/08/2017 09:06:38 Mechanical Piping Designer: Jayson TAYLOR(Jose G)(M), [facility] letter sent: Normal 1/2 BI-RADS Code: ACR BI-RADS Category 1: Negative
== END | disposition home or self-care (01) ==
LOC: C.MAMM 08:32
PROVIDERS: ATTEND Obstetrics & Gynecology
DX: Z12.31 Encounter for screening mammogram for malignant neoplasm of breast (principal)

== ENCOUNTER → 2017-12-10 | Day surgery (SDC) | payer BC ==
[2017-12-02 08:50] VITALS: Ht 160 cm; Wt 92.3 kg
[~2017-12-10] VITALS: Ht 160 cm; Wt 92.3 kg
[~2017-12-10] MED LIST changes: +LIDOCAINE HCL 2% 2 ML VIAL (20MG/ML) ONE; +PROPOFOL IV EMULSION 10 MG/ML 20 ML VIAL IV ONE
[2017-12-10 09:58] VITALS: TEMP 36.6
--- NOTE | 2017-12-10 10:40 | Endo History and Physical ---
History & Physical Date of Service: Dec 10, 2017. Chief Complaint: Barretts esophagus, epigastric pain Referring Physician: Dr Barker History of Present Illness 72 yo CF who presents for EGD secondary to epigastric pain. Past Medical History Arthritis, Fractures, Gastrointestinal Disorder, Pulmonary Emboli, Anxiety, Reflux, High Cholesterol, Sleep Apnea, Heart Disease, Hypertension, Thrombophlebitis, Other, Depression Past Surgical History Hx Cardiac Surgery: Yes (AORTIC VALVE REPLACEMENT 04-11-2017) Hx Internal Defibrillator: No Hx Pacemaker: No Hx Abdominal Surgery: Yes (TREVOR) Hx of Implantable Prosthesis: No Hx Post-Op Nausea and Vomiting: No Hx Cancer Surgery: No Hx Thoracic Surgery: No Hx Orthopedic: Yes (LT/RT KNEE SCOPES, LOWER BACK SURGERY) Hx Urinary Tract Surgery: No Family History Colon CA Social History Smoking Status: Never Smoker Hx Substance Use: No Hx Alcohol Use: No Allergies Coded Allergies: Niacin (Verified Allergy, Intermediate, RASH, 12/10/17) Atorvastatin (Verified Adverse Reaction, Mild, MUSCLE ACHES, 12/10/17) Diltiazem (Verified Adverse Reaction, Mild, HEADACHE, 12/10/17) Current Medications Reported Home Medications Medications Dose Route/Sig Max Daily Dose Days Date Category Ibuprofen 200 Mg Tab 1-3 Tabs PO Q4H PRN 12/02/17 Reported Coreg (Carvedilol) 3.125 Mg Tab 3.125 Mg PO BID 12/02/17 Reported Kp Melatonin (Melatonin) 3 Mg Tab 1 Tab PO HS 11/24/17 Reported Ultram (Tramadol HCl) 50 Mg Tab 50 Mg PO Q4H PRN 10/01/17 Reported Zestril (Lisinopril) 40 Mg Tab 40 Mg PO QAM 10/01/17 Reported Amlodipine Besylate 5 Mg Tab 1 Tab PO QAM 10/01/17 Reported Clonazepam 0.5 Mg Tab 0.5 Mg PO HS 06/16/17 Reported Zantac (Ranitidine HCl) 150 Mg Tab 150 Mg PO BID 06/02/17 Reported Baclofen 10 Mg Tab 10 Mg PO BID 06/01/17 Reported Pantoprazole Sodium (Pantoprazole) 40 Mg Tab 40 Mg PO BID 06/01/17 Reported Rosuvastatin Calcium 20 Mg Tab 20 Mg PO QPM 05/11/17 Reported Vitamin D3 (Cholecalciferol) 2,000 Unit Cap 2,000 Inter.unit PO QAM 03/27/17 Reported Klonopin (Clonazepam) 0.5 Mg Tab 0.25 Mg PO DAILY PRN 10/25/15 Reported Aspirin Ec (Aspirin) 81 Mg Tab 81 Mg PO QAM 05/09/13 Reported Vital Signs Weight (Kilograms): 92.27 Height (Feet): 5 Height (Inches): 3 Date Time Temp Pulse Resp B/P (MAP) Pulse Ox O2 Delivery O2 Flow Rate FiO2 12/10/17 09:58 36.6 76 20 162/95 (117) 98 Room Air Physical Exam General Appearance: WD/WN, no apparent distress Respiratory/Chest: Auscultation: breath sounds normal Cardiovascular: Heart Auscultation: RRR Abdomen: Bowel Sounds: normal Inspection & Palpation: soft, non-distended, no tenderness, guarding & rebound Assessment and Plan Assessment: 72 yo CF who presents for EGD secondary to epigastric pain. Plan: Proceed with EGD.
--- NOTE | 2017-12-10 11:01 | GI REPORT ---
Procedure Date: 12/10/2017 10:25 AM Procedure: Upper GI endoscopy Indications: Epigastric abdominal pain Medicines: Monitored Anesthesia Care Complications: No immediate complications. Estimated Blood Loss: Estimated blood loss: none. Procedure: Pre-Anesthesia Assessment: - Prior to the procedure, a History and Physical was performed, and patient medications and allergies were reviewed. The patient's tolerance of previous anesthesia was also reviewed. The risks and benefits of the procedure and the sedation options and risks were discussed with the patient. All questions were answered, and informed consent was obtained. Prior Anticoagulants: The patient has taken aspirin, last dose was 1 day prior to procedure. ASA Grade Assessment: III - A patient with severe systemic disease. After reviewing the risks and benefits, the patient was deemed in satisfactory condition to undergo the procedure. After obtaining informed consent, the endoscope was passed under direct vision. Throughout the procedure, the patient's blood pressure, pulse, and oxygen saturations were monitored continuously. The scope was introduced through the mouth, and advanced to the second part of duodenum. The upper GI endoscopy was accomplished without difficulty. The patient tolerated the procedure well. Findings: Diffuse salmon-colored mucosa was present from 32 to 39 cm. The maximum longitudinal extent of these esophageal mucosal changes was 7 cm in length. Biopsies were taken with a cold forceps for histology. A small hiatal hernia was present. The examined duodenum was normal. Impression: - [place]-colored mucosa suggestive of long-segment Smith's esophagus. Biopsied. - Small hiatal hernia. - Normal examined duodenum. Recommendation: - Resume previous diet. - Continue present medications. - Await pathology results. - Return to primary care physician as previously scheduled. Jaron Lawler, DO 12/10/2017 11:00:35 AM This report has been signed electronically. Note Initiated On: 12/10/2017 10:25 AM I attest to the content of the Intraoperative Record and orders documented therein, exceptions below
--- NOTE | 2017-12-10 11:03 | Discharge Instructions ---
Endoscopy Patient Instructions Date / Procedure(s) Performed Dec 10, 2017. EGD Allergy Information Coded Allergies: Niacin (Verified Allergy, Intermediate, RASH, 12/10/17) Atorvastatin (Verified Adverse Reaction, Mild, MUSCLE ACHES, 12/10/17) Diltiazem (Verified Adverse Reaction, Mild, HEADACHE, 12/10/17) Discharge Date / Findings Dec 10, 2017. Hiatal hernia Esophageal biopsies Medication Instructions OK to resume all medications today as prescribed Reported Home Medications Medications Dose Route/Sig Max Daily Dose Days Date Category Ibuprofen 200 Mg Tab 1-3 Tabs PO Q4H PRN 12/02/17 Reported Coreg (Carvedilol) 3.125 Mg Tab 3.125 Mg PO BID 12/02/17 Reported Kp Melatonin (Melatonin) 3 Mg Tab 1 Tab PO HS 11/24/17 Reported Ultram (Tramadol HCl) 50 Mg Tab 50 Mg PO Q4H PRN 10/01/17 Reported Zestril (Lisinopril) 40 Mg Tab 40 Mg PO QAM 10/01/17 Reported Amlodipine Besylate 5 Mg Tab 1 Tab PO QAM 10/01/17 Reported Clonazepam 0.5 Mg Tab 0.5 Mg PO HS 06/16/17 Reported Zantac (Ranitidine HCl) 150 Mg Tab 150 Mg PO BID 06/02/17 Reported Baclofen 10 Mg Tab 10 Mg PO BID 06/01/17 Reported Pantoprazole Sodium (Pantoprazole) 40 Mg Tab 40 Mg PO BID 06/01/17 Reported Rosuvastatin Calcium 20 Mg Tab 20 Mg PO QPM 05/11/17 Reported Vitamin D3 (Cholecalciferol) 2,000 Unit Cap 2,000 Inter.unit PO QAM 03/27/17 Reported Klonopin (Clonazepam) 0.5 Mg Tab 0.25 Mg PO DAILY PRN 10/25/15 Reported Aspirin Ec (Aspirin) 81 Mg Tab 81 Mg PO QAM 05/09/13 Reported Provider Instructions Activity Restrictions - No exercising or heavy lifting for 24 hours. - Do not drink alcohol the day of the procedure. - Do not drive a car or operate machinery until the day after the procedure. - Do not make any important decisions or sign important papers in 24 hours after the procedure. Following Day: - Return to full activity which may include returning to work/school. Diet Start your diet with liquids and light foods (jello, soup, juice, toast). Then eat your usual diet if not nauseated. Treatment For Common After Affects For mild abdominal pain, bloating, or excessive gas: - Rest - Eat lightly - Lie on right side Follow-Up Information Follow-up with Dr Barker as scheduled Anesthesia Information What You Should Know You have had a procedure that required some medicine to reduce anxiety and discomfort. This treatment is called moderate sedation. After receiving the treatment, you may be sleepy, but you will be able to breathe on your own. The effects of the treatment may last for several hours. Follow these instructions along with Activity/Diet recommendations noted above: * Do NOT do anything where dizziness or clumsiness would be dangerous. * Rest quietly at home today, then you can be up and about tomorrow. * Have a responsible person stay with you the rest of today. * You may have had an I.V. today. If so, you may take the dressing off later today. Recommendations Call your doctor if: * Trouble breathing * Continuous vomiting for more than 24 hours * Temperature above 101 degrees * Severe abdominal pain or bloating * Pain not relieved by pain medicine ordered * There is increased drainage or redness from any incision * A large amount of rectal bleeding greater than 2-3 tablespoons. (If you had a polyp/s removed or have hemorrhoids, a small amount of blood - from the rectum is to be expected.) * You have any unanswered questions or concerns. IN THE EVENT OF A SERIOUS EMERGENCY, GO TO THE NEAREST EMERGENCY ROOM Your discharge instructions were prepared by provider Jaron Lawler. Patient Instructions Signature Page Lidya Madsen Patient (or Guardian) Signature/Date: I have read and understand the instructions given to me by my caregivers. Caregiver/RN/Doctor Signature/Date: The above-named patient and/or guardian has received patient instructions on this date. + Original Patient Signature Page (only) stays with chart. Please make copy for patient.
[2017-12-10 11:29] VITALS: BP 143/79; PULSE 62; O2SAT 99
--- NOTE | 2017-12-10 11:58 | Anesthesiology Progress Note ---
Anesthesia Post Op Note Date & Time Dec 10, 2017 at 11:58 Vital Signs Pain Intensity: 5 Vital Signs Past 12 Hours Date Time Temp Pulse Resp B/P (MAP) Pulse Ox O2 Delivery O2 Flow Rate FiO2 12/10/17 11:29 62 16 143/79 (100) 99 Room Air 12/10/17 11:14 64 16 146/81 (102) 97 Room Air 12/10/17 10:59 74 16 135/82 (99) 95 Room Air 12/10/17 09:58 36.6 76 20 162/95 (117) 98 Room Air Notes Mental Status: alert / awake / arousable, participated in evaluation Pt Amnestic to Procedure: Yes Nausea / Vomiting: adequately controlled Pain: adequately controlled Airway Patency, RR, SpO2: stable & adequate BP & HR: stable & adequate Hydration State: stable & adequate Anesthetic Complications: no major complications apparent
== END | disposition home or self-care (01) ==
LOC: C.GI 09:30
PROVIDERS: ATTEND Internal Medicine
DX: R10.13 Epigastric pain (principal); K22.70 Barrett's esophagus without dysplasia; K44.9 Diaphragmatic hernia without obstruction or gangrene; M19.90 Unspecified osteoarthritis, unspecified site; F41.9 Anxiety disorder, unspecified; I10 Essential (primary) hypertension; K21.9 Gastro-esophageal reflux disease without esophagitis; E78.00 Pure hypercholesterolemia, unspecified; G47.30 Sleep apnea, unspecified; I51.9 Heart disease, unspecified; F32.9 Major depressive disorder, single episode, unspecified; Z95.2 Presence of prosthetic heart valve; Z80.0 Family history of malignant neoplasm of digestive organs; Z88.8 Allergy status to other drugs, medicaments and biological substances; Z88.6 Allergy status to analgesic agent; Z79.82 Long term (current) use of aspirin; Z79.899 Other long term (current) drug therapy

== ENCOUNTER 2017-12-12 09:20 | Emergency (ER) | payer BC ==
[~2017-12-12] VITALS: Ht 160 cm; Wt 91.3 kg
[~2017-12-12 09:20] MED LIST changes: -LIDOCAINE HCL 2% 2 ML VIAL (20MG/ML) ONE; -PROPOFOL IV EMULSION 10 MG/ML 20 ML VIAL IV ONE
[2017-12-12 09:21] VITALS: Ht 160 cm; Wt 91.3 kg
[2017-12-12 10:55] VITALS: TEMP 36.5
--- NOTE | 2017-12-12 11:33 | DIAGNOSTIC IMAGING REPORT ---
L RIBS UNILATERAL WITH PA CHEST HISTORY: 72 years-old Female fall last nigth pain over ribs 4-6 acute left rib pain status post fall COMPARISON: Chest radiograph 11/24/2017, CTA chest 11/25/2017 TECHNIQUE: PA view of the chest with 4 views of the left ribs FINDINGS: Cardiomegaly with prosthetic aortic valve. Atherosclerosis of the aorta. Mild right hemidiaphragmatic elevation with minimal subsegmental right basilar atelectasis. No pneumothorax, pleural effusion or focal airspace consolidation. No definite acute displaced rib fracture identified. IMPRESSION: 1. No acute process of the chest. 2. Cardiomegaly with prosthetic aortic valve. 3. No acute displaced rib fracture or pneumothorax identified. The above report was generated using voice recognition software. It may contain grammatical, syntax or spelling errors. Electronically signed by: Demario Vargas M.D. 12/12/2017 11:31 AM Dictated Date/Time: 12/12/2017 11:28 AM
[2017-12-12 13:11] VITALS: BP 120/68; PULSE 68; O2SAT 96
--- NOTE | 2017-12-12 14:45 | EMERGENCY ROOM VISIT NOTE ---
History Report prepared by Tristen: India Gallardo Under the Supervision of: Dr. Rito Sanches M.D. First contact with patient: 10:02 Chief Complaint: FALL Stated Complaint: FALL History of Present Illness The patient is a 72 year old female who presents to the Emergency Room with complaints of an episode of fall last night at 2330. The patient was taking off her pants in the bathroom when she lost balance and fell. She fell between the vanity and the commode and tried to catch herself with both arms. She reports pain in her left back where she thinks she might have hit the knobs of her vanity. She denies any head injury. No LOC. She does not have any leg pain or difficulty walking. She denies any abdominal pain or chest pain. She is not on any blood thinners. Source of History: patient Onset: 2330 Position: other (global) Quality: other (fall) Timing: other (episodic) Associated Symptoms: + back pain, No headache, No chest pain, No abdominal pain Review of Systems See HPI for pertinent positives and negatives. A total of ten systems were reviewed and were otherwise negative. Past Medical & Surgical Medical Problems: (1) Abdominal pain (2) Acute diverticulitis (3) Anxiety (4) Atypical angina (5) Back pain (6) Barretts esophagus (7) Bilateral pleural effusion (8) Chest pain (9) Chest wall contusion (10) Diverticulitis Colon (W/O Ment Of Hemorrhage) (11) Diverticulosis Colon (W/O Ment Of Hemorrhage) (12) Endocervical polyp (13) Fall (14) Gastritis (15) Hemoptysis (16) Hemoptysis (17) Hypertension (18) Hypokalemia (19) Left sided chest pain (20) Migraine (21) Mild dehydration (22) Mood disorder (23) Patellar tendonitis (24) Pericardial effusion (25) Pleural effusion (26) Pneumonia (27) Post-menopause bleeding (28) Pulmonary emboli (29) Shortness of breath (30) Shortness of breath (31) Suicidal ideation (32) Suicidal ideation (33) Thrush, oral (34) Weakness Surgical Problems: (1) back surgery (2) H/O aortic valve replacement (3) Hx of cholecystectomy Family History Diabetes mellitus FH: cancer FH: heart disease FH: lung disease Gallbladder disease Hypertension Kidney disease Kidney stones Social History Smoking Status: Never Smoker Alcohol Use: none Drug Use: none Marital Status: Housing Status: lives with family Occupation Status: retired Current/Historical Medications Scheduled Amlodipine Besylate (Amlodipine Besylate), 1 TAB PO QAM Aspirin (Aspirin Ec), 81 MG PO QAM Baclofen (Baclofen), 10 MG PO BID Carvedilol (Coreg), 3.125 MG PO BID Cholecalciferol (Vitamin D3), 2,000 INTER.UNIT PO QAM Clonazepam (Clonazepam), 0.5 MG PO HS Lisinopril (Zestril), 40 MG PO QAM Melatonin (Kp Melatonin), 1 TAB PO HS Pantoprazole (Pantoprazole Sodium), 40 MG PO BID Ranitidine Hcl (Zantac), 150 MG PO BID Rosuvastatin Calcium (Rosuvastatin Calcium), 20 MG PO QPM Scheduled PRN Clonazepam (Klonopin), 0.25 MG PO DAILY PRN for Anxiety/Agitation Ibuprofen (Ibuprofen), 1-3 TABS PO Q4H PRN for Pain Tramadol (Ultram), 50 MG PO Q4H PRN for Pain Allergies Coded Allergies: Niacin (Verified Allergy, Intermediate, RASH, 12/12/17) Atorvastatin (Verified Adverse Reaction, Mild, MUSCLE ACHES, 12/12/17) Diltiazem (Verified Adverse Reaction, Mild, HEADACHE, 12/12/17) Physical Exam Vital Signs Date Time Temp Pulse Resp B/P (MAP) Pulse Ox O2 Delivery O2 Flow Rate FiO2 12/12/17 13:11 68 16 120/68 96 12/12/17 10:55 36.5 62 16 117/73 96 Room Air 12/12/17 09:21 36.5 69 17 159/94 97 Room Air Physical Exam Physical Exam GENERAL: She is oriented to person, place, and time. She appears well- developed and well-nourished. She does not appear distressed. ____ HENT: Exam performed. Head: Normocephalic and atraumatic. Right Ear: External ear normal. No mastoid tenderness. Left Ear: External ear normal. No mastoid tenderness. Mouth/Throat: The oropharynx is clear and moist. No trismus in the jaw. No dental abscesses or uvula swelling. No oropharyngeal exudate or tonsillar abscesses. ____ EYES: Conjunctivae and EOM are normal. Pupils are equal, round, and reactive to light. Right eye exhibits no discharge. Left eye exhibits no discharge. No scleral icterus. ____ NECK: Normal range of motion. Neck supple. No JVD present. No spinous process tenderness present. No carotid bruit present. No rigidity. No tracheal deviation and normal range of motion present. No Brudzinski's sign and no Kernig 's sign noted. ____ CV: Normal rate, regular rhythm, normal heart sounds and intact distal pulses. There is no peripheral edema. Palpable radial pulses bue. ____ PULM/CHEST: Effort normal and breath sounds normal. No respiratory distress. No stridor. She has no wheezes. She has no rales. Chest Wall: Mild pain on palpation of left lateral ribs 6-8. ____ ABD: The abdomen is soft. Bowel sounds are normal. She has no distension. No mass is present. There is no tenderness. There is no rebound, no guarding, no Garcia's sign and no tenderness at McBurney's point. Rovsig negative MUSC/SKEL: Normal range of motion. There is no peripheral edema, tenderness or deformity. No C, T, or L spine tenderness on palpation. Pain on palpation of her left thoracic and lumbar paraspinal muscles. LYMPH: No cervical adenopathy. ____ NEURO: She is alert and oriented to person, place, and time. She has normal strength. No cranial nerve deficit or sensory deficit. Coordination and gait normal. GCS eye subscore is 4. GCS verbal subscore is 5. GCS motor subscore is 6. cerbellar tests wnl. No saddle anesthesia or paraesthesias. ____ SKIN: Skin is warm and dry. She is not diaphoretic. ____ PSYCH: She has a normal mood and affect. Her behavior is normal. Judgment and thought content normal. ____ Medical Decision & Procedures ER Provider Diagnostic Interpretation: Xray results as stated below per my and radiologist interpretation: L RIBS UNILATERAL WITH PA CHEST HISTORY: 72 years-old Female fall last nigth pain over ribs 4-6 acute left rib pain status post fall COMPARISON: Chest radiograph 11/24/2017, CTA chest 11/25/2017 TECHNIQUE: PA view of the chest with 4 views of the left ribs FINDINGS: Cardiomegaly with prosthetic aortic valve. Atherosclerosis of the aorta. Mild right hemidiaphragmatic elevation with minimal subsegmental right basilar atelectasis. No pneumothorax, pleural effusion or focal airspace consolidation. No definite acute displaced rib fracture identified. IMPRESSION: 1. No acute process of the chest. 2. Cardiomegaly with prosthetic aortic valve. 3. No acute displaced rib fracture or pneumothorax identified. The above report was generated using voice recognition software. It may contain grammatical, syntax or spelling errors. Electronically signed by: Demario Vargas M.D. 12/12/2017 11:31 AM Dictated Date/Time: 12/12/2017 11:28 AM ED Course 1012: The patient was evaluated in room A9B. A complete history and physical exam was performed. 1235: X-rays within normal limits. FAST exam performed. Views were obtained from the subxiphoid, hepatorenal, splenorenal, and suprapubic windows. No free fluid in the abdomen. No pericardial tamponade. Negative FAST. DISCHARGE - Plan of care discussed with patient and questions answered. The patient was given both verbal and printed discharge instructions. The patient verbalized understanding and ability to comply. The patient is to seek outpatient follow up as noted in the discharge instructions. The patient verbalized understanding and ability to comply. The patient is discharged in stable condition. The patient was instructed to return for worsening symptoms. Medical Decision Vss. Xray negative. FAST exam negative. Dc for f/u PCP. DISCHARGE - Plan of care discussed with patient and questions answered. The patient was given both verbal and printed discharge instructions. The patient verbalized understanding and ability to comply. The patient is to seek outpatient follow up as noted in the discharge instructions. The patient verbalized understanding and ability to comply. The patient is discharged in stable condition. The patient was instructed to return for worsening symptoms. Medication Reconcilliation Current Medication List: was personally reviewed by me Blood Pressure Screening Patient's blood pressure: Normal blood pressure Blood pressure disposition: Did not require urgent referral Impression Primary Impression: Fall Scribe Attestation The scribe's documentation has been prepared under my direction and personally reviewed by me in its entirety. I confirm that the note above accurately reflects all work, treatment, procedures, and medical decision making performed by me. The chart was completed utilizing [employer] voice recognition software. Grammatical errors, random word insertions, pronoun errors, and incomplete sentences are an occasional consequence of this system due to software limitations, ambient noise, and hardware issues. Any formal questions or concerns about the content, text, or information contained within the body of this dictation should be directly addressed to the physician for clarification. Departure Information Dispostion Home / Self-Care Referrals Renzo Barker M.D. (PCP) Forms HOME CARE DOCUMENTATION FORM, IMPORTANT VISIT INFORMATION Patient Instructions ED Prevention Fall, [facility] Problem Qualifiers Primary Impression: Fall Encounter type: initial encounter Qualified Codes: W19.XXXA - Unspecified fall, initial encounter
== END 2017-12-12 13:15 | disposition home or self-care (01) ==
LOC: C.EDB 09:21 → C.EDA 13:15
DX: M54.5 Low back pain (principal); W19.XXXA Unspecified fall, initial encounter; F41.9 Anxiety disorder, unspecified; I10 Essential (primary) hypertension; E87.6 Hypokalemia; F30.9 Manic episode, unspecified; Z83.3 Family history of diabetes mellitus; Z82.49 Family history of ischemic heart disease and other diseases of the circulatory system; Z79.82 Long term (current) use of aspirin

== ENCOUNTER → 2018-01-02 | Outpatient (CLI) | payer BC | END | disposition home or self-care (01) | LOC: C.PAPS 07:48 | PROVIDERS: ATTEND Obstetrics & Gynecology | DX: Z85.42 Personal history of malignant neoplasm of other parts of uterus (principal) ==

== ENCOUNTER → 2018-01-02 | Outpatient (CLI) | payer BC | END | disposition home or self-care (01) | LOC: C.LABSPEC 15:57 | PROVIDERS: ATTEND Obstetrics & Gynecology | DX: N89.8 Other specified noninflammatory disorders of vagina (principal) ==

== ENCOUNTER → 2018-01-09 | Outpatient (CLI) | payer BC ==
--- NOTE | 2018-01-09 13:40 | DIAGNOSTIC IMAGING REPORT ---
LEFT LOWER EXTREMITY VENOUS DOPPLER HISTORY: Left calf pain. COMPARISON STUDY: None. FINDINGS: There is normal compressibility, flow, and augmentation within the left lower extremity deep venous system. IMPRESSION: No DVT within the left lower extremity. Electronically signed by: Darion Doshi M.D. 01/09/2018 1:39 PM Dictated Date/Time: 01/09/2018 1:39 PM
== END | disposition home or self-care (01) ==
LOC: C.ULTRBC 12:47
PROVIDERS: ATTEND Physician Assistant Medical
DX: M79.605 Pain in left leg (principal); I26.99 Other pulmonary embolism without acute cor pulmonale

== ENCOUNTER → 2018-01-14 | Day surgery (SDC) | payer BC ==
[2017-12-26 13:00] VITALS: Ht 160 cm; Wt 92.3 kg
[~2018-01-14] VITALS: Ht 160 cm; Wt 92.3 kg
[~2018-01-14] MED LIST changes: +LIDOCAINE HCL 2% 2 ML VIAL (20MG/ML) ONE; +PROPOFOL IV EMULSION 10 MG/ML 20 ML VIAL IV ONE; +SODIUM CHLORIDE 0.9% 500ML 500 ML IV ONE
--- NOTE | 2018-01-14 12:56 | Endo History and Physical ---
History & Physical Date of Service: Jan 14, 2018. Chief Complaint: Screening Referring Physician: Dr. Barker History of Present Illness 72 yo CF who presents for screening colonoscopy. Past Medical History Arthritis, Fractures, Gastrointestinal Disorder, Pulmonary Emboli, Anxiety, Reflux, High Cholesterol, Sleep Apnea, Heart Disease, Hypertension, Thrombophlebitis, Other, Depression Past Surgical History Hx Cardiac Surgery: Yes (AORTIC VALVE REPLACEMENT 04-11-2017) Hx Internal Defibrillator: No Hx Pacemaker: No Hx Abdominal Surgery: Yes (TREVOR) Hx of Implantable Prosthesis: No Hx Post-Op Nausea and Vomiting: No Hx Cancer Surgery: No Hx Thoracic Surgery: No Hx Orthopedic: Yes (LT/RT KNEE SCOPES, LOWER BACK SURGERY) Hx Urinary Tract Surgery: No Family History Colon CA Social History Smoking Status: Never Smoker Hx Substance Use: No Hx Alcohol Use: No Allergies Coded Allergies: Niacin (Verified Allergy, Intermediate, RASH, 12/26/17) Atorvastatin (Verified Adverse Reaction, Mild, MUSCLE ACHES, 12/26/17) Diltiazem (Verified Adverse Reaction, Mild, HEADACHE, 12/26/17) Current Medications Reported Home Medications Medications Dose Route/Sig Max Daily Dose Days Date Category Ibuprofen 200 Mg Tab 1-3 Tabs PO Q4H PRN 12/02/17 Reported Coreg (Carvedilol) 3.125 Mg Tab 3.125 Mg PO BID 12/02/17 Reported Kp Melatonin (Melatonin) 3 Mg Tab 1 Tab PO HS 11/24/17 Reported Ultram (Tramadol HCl) 50 Mg Tab 50 Mg PO Q4H PRN 10/01/17 Reported Zestril (Lisinopril) 40 Mg Tab 40 Mg PO QAM 10/01/17 Reported Amlodipine Besylate 5 Mg Tab 1 Tab PO QAM 10/01/17 Reported Clonazepam 0.5 Mg Tab 0.5 Mg PO HS 06/16/17 Reported Zantac (Ranitidine HCl) 150 Mg Tab 150 Mg PO BID 06/02/17 Reported Baclofen 10 Mg Tab 10 Mg PO BID 06/01/17 Reported Pantoprazole Sodium (Pantoprazole) 40 Mg Tab 40 Mg PO BID 06/01/17 Reported Rosuvastatin Calcium 20 Mg Tab 20 Mg PO QPM 05/11/17 Reported Vitamin D3 (Cholecalciferol) 2,000 Unit Cap 2,000 Inter.unit PO QAM 03/27/17 Reported Klonopin (Clonazepam) 0.5 Mg Tab 0.25 Mg PO DAILY PRN 10/25/15 Reported Aspirin Ec (Aspirin) 81 Mg Tab 81 Mg PO QAM 05/09/13 Reported Vital Signs Weight (Kilograms): 92.27 Height (Feet): 5 Height (Inches): 3 Physical Exam General Appearance: WD/WN, no apparent distress Respiratory/Chest: Auscultation: breath sounds normal Cardiovascular: Heart Auscultation: RRR Abdomen: Bowel Sounds: normal Inspection & Palpation: soft, non-distended, no tenderness, guarding & rebound Assessment and Plan Assessment: 72 yo CF who presents for screening colonoscopy. Plan: Proceed with colonoscopy.
--- NOTE | 2018-01-14 14:16 | Discharge Instructions ---
Endoscopy Patient Instructions Date / Procedure(s) Performed Jan 14, 2018. Colonoscopy Allergy Information Coded Allergies: Niacin (Verified Allergy, Intermediate, RASH, 12/26/17) Atorvastatin (Verified Adverse Reaction, Mild, MUSCLE ACHES, 12/26/17) Diltiazem (Verified Adverse Reaction, Mild, HEADACHE, 12/26/17) Discharge Date / Findings Jan 14, 2018. Diverticulosis Internal hemorrhoids Medication Instructions OK to resume all medications today as prescribed Reported Home Medications Medications Dose Route/Sig Max Daily Dose Days Date Category Ibuprofen 200 Mg Tab 1-3 Tabs PO Q4H PRN 12/02/17 Reported Coreg (Carvedilol) 3.125 Mg Tab 3.125 Mg PO BID 12/02/17 Reported Kp Melatonin (Melatonin) 3 Mg Tab 1 Tab PO HS 11/24/17 Reported Ultram (Tramadol HCl) 50 Mg Tab 50 Mg PO Q4H PRN 10/01/17 Reported Zestril (Lisinopril) 40 Mg Tab 40 Mg PO QAM 10/01/17 Reported Amlodipine Besylate 5 Mg Tab 1 Tab PO QAM 10/01/17 Reported Clonazepam 0.5 Mg Tab 0.5 Mg PO HS 06/16/17 Reported Zantac (Ranitidine HCl) 150 Mg Tab 150 Mg PO BID 06/02/17 Reported Baclofen 10 Mg Tab 10 Mg PO BID 06/01/17 Reported Pantoprazole Sodium (Pantoprazole) 40 Mg Tab 40 Mg PO BID 06/01/17 Reported Rosuvastatin Calcium 20 Mg Tab 20 Mg PO QPM 05/11/17 Reported Vitamin D3 (Cholecalciferol) 2,000 Unit Cap 2,000 Inter.unit PO QAM 03/27/17 Reported Klonopin (Clonazepam) 0.5 Mg Tab 0.25 Mg PO DAILY PRN 10/25/15 Reported Aspirin Ec (Aspirin) 81 Mg Tab 81 Mg PO QAM 05/09/13 Reported Provider Instructions Activity Restrictions - No exercising or heavy lifting for 24 hours. - Do not drink alcohol the day of the procedure. - Do not drive a car or operate machinery until the day after the procedure. - Do not make any important decisions or sign important papers in 24 hours after the procedure. Following Day: - Return to full activity which may include returning to work/school. Diet Start your diet with liquids and light foods (jello, soup, juice, toast). Then eat your usual diet if not nauseated. Treatment For Common After Affects For mild abdominal pain, bloating, or excessive gas: - Rest - Eat lightly - Lie on right side Follow-Up Information Follow-up with Dr. Renzo Barker as scheduled Anesthesia Information What You Should Know You have had a procedure that required some medicine to reduce anxiety and discomfort. This treatment is called moderate sedation. After receiving the treatment, you may be sleepy, but you will be able to breathe on your own. The effects of the treatment may last for several hours. Follow these instructions along with Activity/Diet recommendations noted above: * Do NOT do anything where dizziness or clumsiness would be dangerous. * Rest quietly at home today, then you can be up and about tomorrow. * Have a responsible person stay with you the rest of today. * You may have had an I.V. today. If so, you may take the dressing off later today. Recommendations Call your doctor if: * Trouble breathing * Continuous vomiting for more than 24 hours * Temperature above 101 degrees * Severe abdominal pain or bloating * Pain not relieved by pain medicine ordered * There is increased drainage or redness from any incision * A large amount of rectal bleeding greater than 2-3 tablespoons. (If you had a polyp/s removed or have hemorrhoids, a small amount of blood - from the rectum is to be expected.) * You have any unanswered questions or concerns. IN THE EVENT OF A SERIOUS EMERGENCY, GO TO THE NEAREST EMERGENCY ROOM Your discharge instructions were prepared by provider Jaron Lawler. Patient Instructions Signature Page Lidya Madsen Patient (or Guardian) Signature/Date: I have read and understand the instructions given to me by my caregivers. Caregiver/RN/Doctor Signature/Date: The above-named patient and/or guardian has received patient instructions on this date. + Original Patient Signature Page (only) stays with chart. Please make copy for patient.
--- NOTE | 2018-01-14 14:22 | GI REPORT ---
Procedure Date: 01/14/2018 1:17 PM Procedure: Colonoscopy Indications: High risk colon cancer surveillance: Personal history of colonic polyps, Family history of colon cancer in a first-degree relative Medicines: Monitored Anesthesia Care Complications: No immediate complications. Estimated Blood Loss: Estimated blood loss: none. Procedure: Pre-Anesthesia Assessment: - Prior to the procedure, a History and Physical was performed, and patient medications and allergies were reviewed. The patient's tolerance of previous anesthesia was also reviewed. The risks and benefits of the procedure and the sedation options and risks were discussed with the patient. All questions were answered, and informed consent was obtained. Prior Anticoagulants: The patient has taken no previous anticoagulant or antiplatelet agents. ASA Grade Assessment: II - A patient with mild systemic disease. After reviewing the risks and benefits, the patient was deemed in satisfactory condition to undergo the procedure. After I obtained informed consent, the scope was passed under direct vision. Throughout the procedure, the patient's blood pressure, pulse, and oxygen saturations were monitored continuously. The scope was introduced through the anus and advanced to the cecum, identified by appendiceal orifice and ileocecal valve. The colonoscopy was performed without difficulty. The patient tolerated the procedure well. The quality of the bowel preparation was good. The appendiceal orifice and the rectum were photographed. Findings: The perianal and digital rectal examinations were normal. Multiple small-mouthed diverticula were found in the sigmoid colon. Non-bleeding internal hemorrhoids were found during retroflexion. The hemorrhoids were small. Impression: - Diverticulosis in the sigmoid colon. - Non-bleeding internal hemorrhoids. - No specimens collected. Recommendation: - Resume previous diet. - Continue present medications. - Repeat colonoscopy in 5 years for surveillance. - Return to primary care physician as previously scheduled. Jaron Lawler DO 01/14/2018 2:22:14 PM This report has been signed electronically. Note Initiated On: 01/14/2018 1:17 PM I attest to the content of the Intraoperative Record and orders documented therein, exceptions below
--- NOTE | 2018-01-14 14:32 | Anesthesiology Progress Note ---
Anesthesia Post Op Note Date & Time Jan 14, 2018 at 14:32 Vital Signs Pain Intensity: 3 Vital Signs Past 12 Hours Date Time Temp Pulse Resp B/P (MAP) Pulse Ox O2 Delivery O2 Flow Rate FiO2 01/14/18 14:10 70 20 121/60 (80) 98 Room Air 01/14/18 13:10 36.6 65 20 143/75 (97) 98 Room Air Notes Mental Status: alert / awake / arousable, participated in evaluation Pt Amnestic to Procedure: Yes Nausea / Vomiting: adequately controlled Pain: adequately controlled Airway Patency, RR, SpO2: stable & adequate BP & HR: stable & adequate Hydration State: stable & adequate Anesthetic Complications: no major complications apparent
[2018-01-14 14:47] VITALS: BP 132/70; PULSE 62; O2SAT 99
== END | disposition home or self-care (01) ==
LOC: C.GI 12:25
PROVIDERS: ATTEND Internal Medicine
DX: Z12.11 Encounter for screening for malignant neoplasm of colon (principal); K57.30 Diverticulosis of large intestine without perforation or abscess without bleeding; K64.8 Other hemorrhoids; M19.90 Unspecified osteoarthritis, unspecified site; F41.9 Anxiety disorder, unspecified; K21.9 Gastro-esophageal reflux disease without esophagitis; E78.00 Pure hypercholesterolemia, unspecified; G47.30 Sleep apnea, unspecified; I51.9 Heart disease, unspecified; I10 Essential (primary) hypertension; F32.9 Major depressive disorder, single episode, unspecified; Z95.2 Presence of prosthetic heart valve; Z80.0 Family history of malignant neoplasm of digestive organs; Z88.8 Allergy status to other drugs, medicaments and biological substances; Z79.899 Other long term (current) drug therapy; Z79.82 Long term (current) use of aspirin; Z86.010 Personal history of colon polyps

== ENCOUNTER 2018-01-21 10:46 | Emergency (ER) | payer BC ==
[~2018-01-21] VITALS: Ht 160 cm; Wt 88.7 kg
[~2018-01-21 10:46] MED LIST changes: -LIDOCAINE HCL 2% 2 ML VIAL (20MG/ML) ONE; -PROPOFOL IV EMULSION 10 MG/ML 20 ML VIAL IV ONE; -SODIUM CHLORIDE 0.9% 500ML 500 ML IV ONE
[2018-01-21 10:56] VITALS: TEMP 36.7; Ht 160 cm; Wt 88.7 kg
[2018-01-21 11:29] VITALS: O2SAT 98
[2018-01-21] MEDS ORDERED: LACTULOSE SYRUP 20 GM/30 ML UDC PO STA (11:35)
[2018-01-21] MEDS ORDERED: METOCLOPRAMIDE HCL INJ 5 MG/ML 2 ML VIAL IV. STA (11:35)
[2018-01-21 11:58] LABS: BASO % 0.6 %; BASO ABS # 0.04 K/uL (0-0.2); EOS % 2.8 %; EOS ABS # 0.18 K/uL (0-0.5); HEMATOCRIT 38.9 % (37-47); HEMOGLOBIN 12.6 g/dL (12.0-16.0); IG# 0.01 K/uL (0.00-0.02); LYMPH % 28.8 %; LYMPH ABS # 1.82 K/uL (1.2-3.4); MEAN CELL VOLUME 88.8 fL (80-100); MEAN CORPUSCULAR HEMOGLOBIN 28.8 pg (25-34); MEAN CORPUSCULAR HGB CONC 32.4 g/dl (32-36); MEAN PLATELET VOLUME 9.7 fL (7.4-10.4); MONO % 7.7 %; MONO ABS # 0.49 K/uL (0.11-0.59); NEUT % 59.9 %; NEUT ABS # 3.79 K/uL (1.4-6.5); PLATELET COUNT 234 K/uL (130-400); RED CELL DISTRIBUTION WIDTH CV 15.5 % (11.5-14.5); RED CELL DISTRIBUTION WIDTH SD 50.4 fL (36.4-46.3); WHITE BLOOD COUNT 6.33 K/uL (4.8-10.8)
[2018-01-21 12:07] LABS: PTT PATIENT 25.2 SECONDS (21.0-31.0)
[2018-01-21 12:18] LABS: ALBUMIN 3.8 gm/dl (3.4-5.0); ALT/SGPT 20 U/L (12-78); AST/SGOT 15 U/L (15-37); BLOOD UREA NITROGEN 18 mg/dl (7-18); CALCIUM 9.4 mg/dl (8.5-10.1); CARBON DIOXIDE 24 mmol/L (21-32); CREATININE 1.01 mg/dl (0.60-1.20); GLUCOSE 88 mg/dl (70-99); LIPASE 193 U/L (73-393); POTASSIUM 3.7 mmol/L (3.5-5.1); SODIUM 141 mmol/L (136-145)
[2018-01-21 12:23] LABS: ALKALINE PHOSPHATASE 98 U/L (45-117); TOTAL PROTEIN 8.2 gm/dl (6.4-8.2)
--- NOTE | 2018-01-21 13:08 | DIAGNOSTIC IMAGING REPORT ---
ABDOMEN 2VIEW W/PA CHEST RTN CLINICAL HISTORY: 72 years-old Female presenting with ab pain, recent colonoscopy, constipation. TECHNIQUE: PA view of the chest and supine and upright views of the abdomen were obtained. COMPARISON: Chest x-ray from 11/24/2017. FINDINGS: Prosthetic aortic valve noted. Atherosclerosis of the aorta. Cardiac silhouette normal in size. Mediastinal surgical clips also noted. Lungs and pleural spaces clear. Moderate stool burden in the right colon. No bowel obstruction though there is a paucity of small bowel gas, nonspecific. Surgical clips project over the left inguinal region. No gross pneumoperitoneum or convincing evidence of retroperitoneal free gas. Allowing for bowel gas and stool, no calcifications to suggest nephrolithiasis. Osseous structures normal. IMPRESSION: 1. No acute cardiopulmonary disease. 2. No convincing evidence of intraperitoneal or retroperitoneal free gas. Electronically signed by: Frederick Fajardo M.D. 01/21/2018 1:06 PM Dictated Date/Time: 01/21/2018 1:03 PM
--- NOTE | 2018-01-21 13:19 | EMERGENCY ROOM VISIT NOTE ---
History Report prepared by Tristen: Alex Dyson Under the Supervision of: Dr. Osmin Brooks M.D. First contact with patient: 11:21 Chief Complaint: ABDOMINAL PAIN Stated Complaint: ABDOMINAL PAIN, TIGHTNESS, CONSTIPATION Nursing Triage Summary: Pt presents pain in entire abd up to between breasts. Pt states, "I've had pain ever since I had my heart surgery last April. It has been worse since night. It was hard to sleep last night. I have tightness and pressure. I had a routine colonoscopy last week. " Denies n/v/d. SOB. Constipation. Small bm yesterday morning and this morning. Used a fleet enema yesterday morning. History of Present Illness The patient is a 72 year old white female with a past medical history of diverticulitis, anxiety, Smith's esophagus, pleural effusion, HTN, PE, s/p cholecystectomy who presents to the ED with a cc of constant generalized abdominal pain. Describes pain as a feeling of "tightness" and "pressure". Patient reports having an aortic valve replacement 9 months ago and has had abdominal pain ever since, but her pain worsened a few days ago. Pain radiates up into chest. She feels that she is likely constipated. She used a suppository yesterday which caused her to have a small bowel movement. Bowel movement improved her pain. Negative nausea, diarrhea. Patient notes that she fell last month and still feels sore from this. She is not currently on Coumadin, but was on it until two months ago. Patient had a recent colonoscopy with Dr. Lawler on January 14 (one week ago)2017 which showed diverticulosis, and nonbleeding hemorrhoids. No recent travel, or antibiotic use. She reports hydrating well. Source of History: patient Onset: A few days ago Position: abdomen (generalized) Quality: pressure, other ("tightness") Timing: constant Modifying Factors (Relieving): defecation Associated Symptoms: No nausea, No diarrhea Review of Systems See HPI for pertinent positives and negatives. A total of ten systems were reviewed and were otherwise negative. Past Medical & Surgical Medical Problems: (1) Abdominal pain (2) Acute diverticulitis (3) Anxiety (4) Atypical angina (5) Back pain (6) Barretts esophagus (7) Bilateral pleural effusion (8) Chest pain (9) Chest wall contusion (10) Diverticulitis Colon (W/O Ment Of Hemorrhage) (11) Diverticulosis Colon (W/O Ment Of Hemorrhage) (12) Endocervical polyp (13) Fall (14) Gastritis (15) Hemoptysis (16) Hemoptysis (17) Hypertension (18) Hypokalemia (19) Left sided chest pain (20) Migraine (21) Mild dehydration (22) Mood disorder (23) Patellar tendonitis (24) Pericardial effusion (25) Pleural effusion (26) Pneumonia (27) Post-menopause bleeding (28) Pulmonary emboli (29) Shortness of breath (30) Shortness of breath (31) Suicidal ideation (32) Suicidal ideation (33) Thrush, oral (34) Weakness Surgical Problems: (1) back surgery (2) H/O aortic valve replacement (3) Hx of cholecystectomy Family History Diabetes mellitus FH: cancer FH: heart disease FH: lung disease Gallbladder disease Hypertension Kidney disease Kidney stones Social History Smoking Status: Never Smoker Alcohol Use: none Drug Use: none Marital Status: Housing Status: lives with family Occupation Status: retired Current/Historical Medications Scheduled Amlodipine Besylate (Amlodipine Besylate), 1 TAB PO QAM Aspirin (Aspirin Ec), 81 MG PO QAM Baclofen (Baclofen), 10 MG PO BID Carvedilol (Coreg), 3.125 MG PO BID Cholecalciferol (Vitamin D3), 2,000 INTER.UNIT PO QAM Clonazepam (Clonazepam), 0.5 MG PO HS Lisinopril (Zestril), 40 MG PO QAM Melatonin (Kp Melatonin), 1 TAB PO HS Pantoprazole (Pantoprazole Sodium), 40 MG PO BID Ranitidine Hcl (Zantac), 150 MG PO BID Rosuvastatin Calcium (Rosuvastatin Calcium), 20 MG PO QPM Scheduled PRN Clonazepam (Klonopin), 0.25 MG PO DAILY PRN for Anxiety/Agitation Ibuprofen (Ibuprofen), 1-3 TABS PO Q4H PRN for Pain Tramadol (Ultram), 50 MG PO Q4H PRN for Pain Allergies Coded Allergies: Niacin (Verified Allergy, Intermediate, RASH, 01/21/18) Atorvastatin (Verified Adverse Reaction, Mild, MUSCLE ACHES, 01/21/18) Diltiazem (Verified Adverse Reaction, Mild, HEADACHE, 01/21/18) Physical Exam Vital Signs Date Time Temp Pulse Resp B/P (MAP) Pulse Ox O2 Delivery O2 Flow Rate FiO2 01/21/18 13:11 64 16 131/72 97 Room Air 01/21/18 13:10 74 01/21/18 12:26 72 18 111/56 95 Room Air 01/21/18 11:29 98 Room Air 01/21/18 10:56 36.7 72 18 139/86 99 Room Air Physical Exam GENERAL: Awake, alert, well-appearing, NAD. Thinning hair. HENT: Normocephalic, atraumatic. EYES: Normal conjunctiva. Sclera non-icteric. NECK: Supple. No nuchal rigidity. FROM. RESPIRATORY: CTAB, no rhonchi, wheezing, crackles CARDIAC: RRR, no MRG ABDOMEN: Soft, NTND, BS+ MSK: No chest wall TTP, no LE edema NEURO: GCS 15, CN 2-12 intact, moves all 4s on command SKIN: No rash or jaundice noted. Medical Decision & Procedures ER Provider Diagnostic Interpretation: Radiology results as stated below per my review and radiologist interpretation: ABDOMEN 2VIEW W/PA CHEST RTN FINDINGS: Prosthetic aortic valve noted. Atherosclerosis of the aorta. Cardiac silhouette normal in size. Mediastinal surgical clips also noted. Lungs and pleural spaces clear. Moderate stool burden in the right colon. No bowel obstruction though there is a paucity of small bowel gas, nonspecific. Surgical clips project over the left inguinal region. No gross pneumoperitoneum or convincing evidence of retroperitoneal free gas. Allowing for bowel gas and stool, no calcifications to suggest nephrolithiasis. Osseous structures normal. IMPRESSION: 1. No acute cardiopulmonary disease. 2. No convincing evidence of intraperitoneal or retroperitoneal free gas. Electronically signed by: Frederick Fajardo M.D. 01/21/2018 1:06 PM Laboratory Results 01/21/18 11:45 Red Blood Count 4.38, Mean Corpuscular Volume 88.8, Mean Corpuscular Hemoglobin 28.8, Mean Corpuscular Hemoglobin Concent 32.4, Mean Platelet Volume 9.7, Neutrophils (%) (Auto) 59.9, Lymphocytes (%) (Auto) 28.8, Monocytes (%) (Auto) 7.7, Eosinophils (%) (Auto) 2.8, Basophils (%) (Auto) 0.6, Neutrophils # (Auto) 3.79, Lymphocytes # (Auto) 1.82, Monocytes # (Auto) 0.49, Eosinophils # (Auto) 0.18, Basophils # (Auto) 0.04 01/21/18 11:45 Test 01/21/18 11:45 01/21/18 12:15 White Blood Count 6.33 K/uL (4.8-10.8) Red Blood Count 4.38 M/uL (4.2-5.4) Hemoglobin 12.6 g/dL (12.0-16.0) Hematocrit 38.9 % (37-47) Mean Corpuscular Volume 88.8 fL (80-100) Mean Corpuscular Hemoglobin 28.8 pg (25-34) Mean Corpuscular Hemoglobin Concent 32.4 g/dl (32-36) Platelet Count 234 K/uL (130-400) Mean Platelet Volume 9.7 fL (7.4-10.4) Neutrophils (%) (Auto) 59.9 % Lymphocytes (%) (Auto) 28.8 % Monocytes (%) (Auto) 7.7 % Eosinophils (%) (Auto) 2.8 % Basophils (%) (Auto) 0.6 % Neutrophils # (Auto) 3.79 K/uL (1.4-6.5) Lymphocytes # (Auto) 1.82 K/uL (1.2-3.4) Monocytes # (Auto) 0.49 K/uL (0.11-0.59) Eosinophils # (Auto) 0.18 K/uL (0-0.5) Basophils # (Auto) 0.04 K/uL (0-0.2) RDW Standard Deviation 50.4 fL (36.4-46.3) RDW Coefficient of Variation 15.5 % (11.5-14.5) Immature Granulocyte % (Auto) 0.2 % Immature Granulocyte # (Auto) 0.01 K/uL (0.00-0.02) Prothrombin Time 10.2 SECONDS (9.0-12.0) Prothromb Time International Ratio 1.0 (0.9-1.1) Activated Partial Thromboplast Time 25.2 SECONDS (21.0-31.0) Partial Thromboplastin Ratio 1.0 Anion Gap 9.0 mmol/L (3-11) Est Creatinine Clear Calc Drug Dose 54.0 ml/min Estimated GFR () 64.9 Estimated GFR (Non- 56.0 BUN/Creatinine Ratio 18.2 (10-20) Calcium Level 9.4 mg/dl (8.5-10.1) Total Bilirubin 0.5 mg/dl (0.2-1) Direct Bilirubin < 0.1 mg/dl (0-0.2) Aspartate Amino Transf (AST/SGOT) 15 U/L (15-37) Alanine Aminotransferase (ALT/SGPT) 20 U/L (12-78) Alkaline Phosphatase 98 U/L (45-117) Troponin I < 0.015 ng/ml (0-0.045) Pro-B-Type Natriuretic Peptide 314 pg/ml (0-900) Total Protein 8.2 gm/dl (6.4-8.2) Albumin 3.8 gm/dl (3.4-5.0) Lipase 193 U/L (73-393) Urine Color YELLOW Urine Appearance CLEAR (CLEAR) Urine pH 7.5 (4.5-7.5) Urine Specific [place] 1.010 (1.000-1.030) Urine Protein NEG (NEG) Urine Glucose (UA) NEG (NEG) Urine Ketones NEG (NEG) Urine Occult Blood NEG (NEG) Urine Nitrite NEG (NEG) Urine Bilirubin NEG (NEG) Urine Urobilinogen NEG (NEG) Urine Leukocyte Esterase TRACE (NEG) Urine WBC (Auto) 1-5 /hpf (0-5) Urine RBC (Auto) 0-4 /hpf (0-4) Urine Hyaline Casts (Auto) 0 /lpf (0-5) Urine Epithelial Cells (Auto) 0-5 /lpf (0-5) Urine Bacteria (Auto) NEG (NEG) Laboratory results reviewed by me Medications Administered Medications (Trade) Dose Ordered Sig/Aurora Route Start Time Stop Time Status Last Admin Dose Admin Metoclopramide HCl (Reglan Inj) 10 mg NOW STAT IV. 01/21/18 11:35 01/21/18 11:38 DC 01/21/18 11:50 10 MG Lactulose (Chronulac Syrup) 30 gm NOW STAT PO 01/21/18 11:35 01/21/18 11:38 DC 01/21/18 11:50 30 GM ECG Per My Interpretation Indication: abdominal pain Rate (beats per minute): 58 Rhythm: sinus bradycardia Findings: 1st degree AV block, RBBB, T-wave inversion (lead 3.), other (Wide QRS. No other STS changes or TWI. ) ED Course 1125: The patient was evaluated in room C6. A complete history and physical exam was performed. 1330: I reevaluated the patient. Discussed results and discharge instructions: she verbalized understanding and agreement. The patient is ready for discharge. Medical Decision The patient is a 72 year old white female with a past medical history of diverticulitis, anxiety, Smith's esophagus, pleural effusion, HTN, PE, s/p cholecystectomy who presents to the ED with a cc of constant generalized abdominal pain. Differential diagnosis: Etiologies such as appendicitis, diverticulitis, PUD, biliary pathology, UTI, pancreatitis, obstruction, mesenteric ischemia, aortic pathology, infections, inflammatory bowel disease, renal colic, as well as others were entertained. Prior records were reviewed. Patient was seen and evaluated the bedside. Patient was complaining of some abdominal pain that began in the lower abdomen and progressed further up into her chest. Patient denies any exertional chest pains. Patient has no lower extremity swelling. Patient does have a prior history of a nonmechanical aortic valve replacement that was completed last year. Patient no longer takes any Coumadin. On exam the patient has a fairly soft abdomen. The patient did relate that she has had some constipation. Patient did have a recent colonoscopy approximately 1 week prior it was otherwise fairly unremarkable. The patient did have blood work completed along with an EKG, troponin, chest and abdomen films. Patient was also given some medications to help with constipation. Patient's chest x-ray was clear. Abdominal film did show stool burden of the right colon but no evidence of bowel obstruction. Patient's EKG does show first-degree AV block and right bundle branch block pattern which is not new. Patient has a negative troponin. EKG is nonischemic. Less likely ACS. Patient's other blood work is fairly unremarkable. The patient was feeling better after medications. I believe that this is just likely constipation. Patient was given warning signs which to return. I do not believe that she requires further evaluation or treatment within hospital. Patient is agreeable to this plan of care. Patient was given strict follow-up, discharge, and return precautions. All questions were answered. Patient was deemed suitable for outpatient follow-up at this time. Patient agreed with the plan of care and was safely discharged home. Medication Reconcilliation Current Medication List: was personally reviewed by me Blood Pressure Screening Patient's blood pressure: Normal blood pressure Blood pressure disposition: Did not require urgent referral Impression Primary Impression: Constipation Scribe Attestation The scribe's documentation has been prepared under my direction and personally reviewed by me in its entirety. I confirm that the note above accurately reflects all work, treatment, procedures, and medical decision making performed by me. Departure Information Dispostion Home / Self-Care Referrals Renzo Barker M.D. (PCP) Patient Instructions Constipation, Diet High Fiber Dc, My [facility] Additional Instructions Please return to the emergency department if you have worsening or recurrent symptoms not amenable to at-home treatment. Please call for a follow-up appointment with her primary care physician. Please take your medications as prescribed. If you have other concerns and/or complaints please feel free to also call your primary care physician's office or return the ED for further evaluation, management, and treatment. Take your medications as prescribed. Continue to take the MiraLAX and the Metamucil. Please start using docusate and senna. You may use an enema as needed. Please make sure you hydrate with clear liquids. Also increase the fiber in leafy greens in your diet. Please follow-up with your computer network specialist in your primary care physician if your symptoms persist. You have been examined and treated today on an emergency basis only. This is not a substitute for, or an effort to provide, complete comprehensive medical care. It is impossible to recognize and treat all injuries or illnesses in a single emergency department visit. It is therefore important that you follow up closely with [facility], your PCP, and/or your specialist(s). Call as soon as possible for an appointment. Thank you for your time and consideration. I look forward to speaking with you again soon. Please don't hesitate to call us if you have any questions.
[2018-01-21 14:02] VITALS: BP 98/66; PULSE 65; O2SAT 96
== END 2018-01-21 14:03 | disposition home or self-care (01) ==
LOC: C.EDB 10:48 → C.EDC 14:03
DX: K59.00 Constipation, unspecified (principal); R10.84 Generalized abdominal pain; F41.9 Anxiety disorder, unspecified; I10 Essential (primary) hypertension; Z79.82 Long term (current) use of aspirin; Z79.899 Other long term (current) drug therapy

== ENCOUNTER → 2018-01-30 | Outpatient (CLI) | payer BC ==
[2018-01-30 12:28] LABS: HEMOGLOBIN A1C 5.8 % (4.5-5.6)
[2018-01-30 12:32] LABS: ALBUMIN 3.5 gm/dl (3.4-5.0); ALT/SGPT 15 U/L (12-78); BLOOD UREA NITROGEN 18 mg/dl (7-18); CALCIUM 9.4 mg/dl (8.5-10.1); CARBON DIOXIDE 25 mmol/L (21-32); CREATININE 0.92 mg/dl (0.60-1.20); GLUCOSE 96 mg/dl (70-99); POTASSIUM 3.9 mmol/L (3.5-5.1); SODIUM 141 mmol/L (136-145)
[2018-01-30 12:36] LABS: ALKALINE PHOSPHATASE 100 U/L (45-117); AST/SGOT 13 U/L (15-37); CHOLESTEROL 260 mg/dl (0-200); LDL CHOLESTEROL CALCULATED 183 mg/dl
== END | disposition home or self-care (01) ==
LOC: C.LABBFT 10:37
PROVIDERS: ATTEND Internal Medicine
DX: R31.29 Other microscopic hematuria (principal); R73.01 Impaired fasting glucose; E55.9 Vitamin D deficiency, unspecified; E78.5 Hyperlipidemia, unspecified; R25.2 Cramp and spasm

== ENCOUNTER → 2018-02-05 | Outpatient (CLI) | payer BC | END | disposition home or self-care (01) | LOC: C.LABBFT 12:11 | PROVIDERS: ATTEND Internal Medicine | DX: R77.1 Abnormality of globulin (principal); R20.0 Anesthesia of skin ==

== ENCOUNTER → 2018-06-01 | Outpatient (CLI) | payer BC ==
[~2018-06-01] MED LIST changes: -CLON0.5T3 PO; +GADAVIST IV PRN; +KLN/5 PO; +ROSU20TA24 PO; -ROSU20TA33 PO
--- NOTE | 2018-06-01 11:11 | DIAGNOSTIC IMAGING REPORT ---
BRAIN COMBO CLINICAL HISTORY: R42,R44.2 mental status change COMPARISON STUDY: No previous studies for comparison. TECHNIQUE: Utilizing a 1.5 Shelly magnet and dedicated coil, multiplanar, multiecho imaging of the brain was performed pre and postcontrast administration. IV administration of 8.5 mL of Gadavist contrast was uneventful. FINDINGS: Diffusion images show no evidence for an acute ischemic event. Signal characteristics the cerebellar as well as cerebral hemispheres indicate scattered foci of increased signal within the periventricular deep white matter regions of both cerebral hemispheres. Given the patient's age, these are nonspecific. There is no abnormal postcontrast enhancement. Sella and parasellar regions are within normal limits. The internal auditory canals are symmetric. IMPRESSION: 1. Findings consistent with moderate chronic small vessel change throughout both cerebral hemispheres. 2. Other possibilities are felt to be unlikely given the patient's age category. 3. No evidence for an acute ischemic insult. 4. No abnormal postcontrast enhancement. The above report was generated using voice recognition software. It may contain grammatical, syntax or spelling errors. Electronically signed by: Tim Siegel M.D. 06/01/2018 11:10 AM Dictated Date/Time: 06/01/2018 11:05 AM
== END | disposition home or self-care (01) ==
LOC: C.MRIBC 09:55
DX: R42 Dizziness and giddiness (principal); R44.2 Other hallucinations

== ENCOUNTER 2018-06-17 14:11 | Emergency (ER) | payer BC ==
[~2018-06-17] VITALS: Ht 160 cm; Wt 86.9 kg
[~2018-06-17 14:11] MED LIST changes: -GADAVIST IV PRN
[2018-06-17 14:23] VITALS: Ht 160 cm; Wt 86.9 kg
--- NOTE | 2018-06-17 14:36 | EMERGENCY ROOM VISIT NOTE ---
History Report prepared by Tristen: Ailyn Abel Under the Supervision of: Dr. Osmin Brooks M.D. First contact with patient: 14:25 Chief Complaint: CHEST PAIN Stated Complaint: SOME TIGHTNESS IN CHEST,SOB History of Present Illness The patient is a 73 year old white female with a past medical history of PE, diverticulitis, cholecystectomy, aortic valve replacement, and anxiety who presents to the ED with a cc of chest tightness that radiates into her ribs beginning 13 days ago. Positive shortness of breath, dry cough, headache, and fatigue. Negative palpitations, pain or swelling in legs, nausea, vomiting, urinary symptoms. The patient reports having an injection in her lower back 13 days ago and states that her symptoms began after this. The patient does report taking some Tramadol for her back pain. She reports that her aortic valve replacement was about 14 months ago and she denies being on blood thinners. She denies a history of smoking. The patient denies any recent lifting or twisting. Source of History: patient Onset: 13 days ago Position: chest Quality: other (tightness) Associated Symptoms: + headache, + cough, + SOB, + fatigue, No nausea, No vomiting, No urinary symptoms Note: denies: pain or swelling in legs, palpitations Review of Systems See HPI for pertinent positives and negatives. A total of ten systems were reviewed and were otherwise negative. Past Medical & Surgical Medical Problems: (1) Abdominal pain (2) Acute diverticulitis (3) Anxiety (4) Atypical angina (5) Back pain (6) Barretts esophagus (7) Bilateral pleural effusion (8) Chest pain (9) Chest wall contusion (10) Diverticulitis Colon (W/O Ment Of Hemorrhage) (11) Diverticulosis Colon (W/O Ment Of Hemorrhage) (12) Endocervical polyp (13) Fall (14) Gastritis (15) Hemoptysis (16) Hemoptysis (17) Hypertension (18) Hypokalemia (19) Left sided chest pain (20) Migraine (21) Mild dehydration (22) Mood disorder (23) Patellar tendonitis (24) Pericardial effusion (25) Pleural effusion (26) Pneumonia (27) Post-menopause bleeding (28) Pulmonary emboli (29) Shortness of breath (30) Shortness of breath (31) Suicidal ideation (32) Suicidal ideation (33) Thrush, oral (34) Weakness Surgical Problems: (1) back surgery (2) H/O aortic valve replacement (3) Hx of cholecystectomy Family History Diabetes mellitus FH: cancer FH: heart disease FH: lung disease Gallbladder disease Hypertension Kidney disease Kidney stones Social History Smoking Status: Never Smoker Alcohol Use: none Drug Use: none Marital Status: Housing Status: lives with family Occupation Status: retired Current/Historical Medications Scheduled Aspirin (Aspirin Ec), 81 MG PO QAM Baclofen (Baclofen), 10 MG PO BID Carvedilol (Coreg), 3.125 MG PO BID Cholecalciferol (Vitamin D3), 2,000 INTER.UNIT PO QAM Clonazepam (Clonazepam), 0.5 MG PO HS Coenzyme Q10 (Ubidecarenone) (Coq10), 200 MG PO DAILY Garlic (Garlic), 500 MG PO DAILY Lisinopril (Zestril), 40 MG PO QAM Melatonin (Melatonin), 1.5 TAB PO HS Pantoprazole (Pantoprazole Sodium), 40 MG PO BID Pravastatin Sodium (Pravastatin Sodium), 10 MG PO HS Ranitidine Hcl (Zantac), 150 MG PO BID Scheduled PRN Clonazepam (Klonopin), 0.25 MG PO DAILY PRN for Anxiety/Agitation Tramadol (Ultram), 50 MG PO Q4H PRN for Pain Allergies Coded Allergies: Niacin (Verified Allergy, Intermediate, RASH, 01/21/18) Atorvastatin (Verified Adverse Reaction, Mild, MUSCLE ACHES, 01/21/18) Diltiazem (Verified Adverse Reaction, Mild, HEADACHE, 01/21/18) Physical Exam Vital Signs Date Time Temp Pulse Resp B/P (MAP) Pulse Ox O2 Delivery O2 Flow Rate FiO2 06/17/18 16:56 36.4 66 19 124/77 95 06/17/18 15:06 64 22 142/87 06/17/18 15:04 68 06/17/18 15:04 96 Room Air 06/17/18 15:03 Room Air 06/17/18 14:23 36.4 67 18 129/65 97 Room Air Physical Exam GENERAL: Awake, alert, well-appearing, NAD HENT: Normocephalic, atraumatic. EYES: Normal conjunctiva. Sclera non-icteric. PERRL. No anisocoria. NECK: Supple. No nuchal rigidity. FROM. RESPIRATORY: CTAB, no rhonchi, wheezing, crackles CARDIAC: RRR, no MRG ABDOMEN: Soft, NTND, BS+ MSK: Mild reproducible right chest wall tenderness, no LE edema, no calf pain, negative Celestino's sign NEURO: GCS 15, CN 2-12 intact, moves all 4s on command SKIN: No rash or jaundice noted. Medical Decision & Procedures ER Provider Diagnostic Interpretation: Radiology results as stated below per my review and radiologist interpretation: CHEST ONE VIEW PORTABLE CLINICAL HISTORY: CHEST PAIN dyspnea COMPARISON STUDY: 01/21/2018 FINDINGS: The bones soft tissues and hemidiaphragms are normal. The cardiomediastinal silhouette is normal. The lungs are clear. The pulmonary vasculature is normal. IMPRESSION: Negative chest. The above report was generated using voice recognition software. It may contain grammatical, syntax or spelling errors. Electronically signed by: Tim Siegel M.D. 06/17/2018 3:09 PM Dictated Date/Time: 06/17/2018 3:08 PM Laboratory Results 06/17/18 14:50 Red Blood Count 4.32, Mean Corpuscular Volume 91.4, Mean Corpuscular Hemoglobin 29.2, Mean Corpuscular Hemoglobin Concent 31.9, Mean Platelet Volume 9.8, Neutrophils (%) (Auto) 56.9, Lymphocytes (%) (Auto) 29.3, Monocytes (%) (Auto) 8.0, Eosinophils (%) (Auto) 4.3, Basophils (%) (Auto) 1.3, Neutrophils # (Auto) 3.61, Lymphocytes # (Auto) 1.86, Monocytes # (Auto) 0.51, Eosinophils # (Auto) 0.27, Basophils # (Auto) 0.08 06/17/18 14:50 Test 06/17/18 14:50 White Blood Count 6.34 K/uL (4.8-10.8) Red Blood Count 4.32 M/uL (4.2-5.4) Hemoglobin 12.6 g/dL (12.0-16.0) Hematocrit 39.5 % (37-47) Mean Corpuscular Volume 91.4 fL (80-100) Mean Corpuscular Hemoglobin 29.2 pg (25-34) Mean Corpuscular Hemoglobin Concent 31.9 g/dl (32-36) Platelet Count 244 K/uL (130-400) Mean Platelet Volume 9.8 fL (7.4-10.4) Neutrophils (%) (Auto) 56.9 % Lymphocytes (%) (Auto) 29.3 % Monocytes (%) (Auto) 8.0 % Eosinophils (%) (Auto) 4.3 % Basophils (%) (Auto) 1.3 % Neutrophils # (Auto) 3.61 K/uL (1.4-6.5) Lymphocytes # (Auto) 1.86 K/uL (1.2-3.4) Monocytes # (Auto) 0.51 K/uL (0.11-0.59) Eosinophils # (Auto) 0.27 K/uL (0-0.5) Basophils # (Auto) 0.08 K/uL (0-0.2) RDW Standard Deviation 51.1 fL (36.4-46.3) RDW Coefficient of Variation 15.2 % (11.5-14.5) Immature Granulocyte % (Auto) 0.2 % Immature Granulocyte # (Auto) 0.01 K/uL (0.00-0.02) Prothrombin Time 10.0 SECONDS (9.0-12.0) Prothromb Time International Ratio 1.0 (0.9-1.1) Activated Partial Thromboplast Time 25.8 SECONDS (21.0-31.0) Partial Thromboplastin Ratio 1.0 Anion Gap 7.0 mmol/L (3-11) Est Creatinine Clear Calc Drug Dose 55.3 ml/min Estimated GFR () 68.5 Estimated GFR (Non- 59.1 BUN/Creatinine Ratio 20.3 (10-20) Calcium Level 9.2 mg/dl (8.5-10.1) Total Bilirubin 0.3 mg/dl (0.2-1) Direct Bilirubin < 0.1 mg/dl (0-0.2) Aspartate Amino Transf (AST/SGOT) 14 U/L (15-37) Alanine Aminotransferase (ALT/SGPT) 19 U/L (12-78) Alkaline Phosphatase 91 U/L (45-117) Troponin I < 0.015 ng/ml (0-0.045) Pro-B-Type Natriuretic Peptide 362 pg/ml (0-900) Total Protein 7.8 gm/dl (6.4-8.2) Albumin 3.3 gm/dl (3.4-5.0) Lipase 173 U/L (73-393) Laboratory results reviewed by me Medications Administered Medications (Trade) Dose Ordered Sig/Aurora Route Start Time Stop Time Status Last Admin Dose Admin Acetaminophen (Tylenol Tab) 1,000 mg NOW STAT PO 06/17/18 14:49 06/17/18 14:51 DC 06/17/18 15:03 1,000 MG Ketorolac Tromethamine (Toradol Inj) 15 mg NOW STAT IV 06/17/18 14:49 06/17/18 14:51 DC 06/17/18 15:02 15 MG ECG Per My Interpretation Indication: chest pain Rate (beats per minute): 70 Rhythm: normal sinus Findings: RBBB, T-wave inversion (in lead III), other (wide QRS) ED Course 1431: The patient was evaluated in room A2. A complete history and physical exam was performed. 1622: I reevaluated the patient and she is feeling well. Discussed results and discharge instructions: She verbalized understanding and agreement. The patient is ready for discharge. Medical Decision The patient is a 73 year old white female with a past medical history of PE, diverticulitis, cholecystectomy, aortic valve replacement, and anxiety who presents to the ED with a cc of chest tightness that radiates into her ribs beginning 13 days ago. Nursing notes reviewed. Ancillary studies and prior records reviewed. Differential diagnosis: Etiologies such as cardiac ischemia, aortic dissection, pulmonary embolism, pneumonia, pneumothorax, musculoskeletal, infections, pericarditis, myocarditis , esophageal rupture, gastrointestinal, as well as others were entertained. Patient was seen and evaluated the bedside. The patient was complaining of some chest tightness. Patient denies any diaphoresis, nausea, vomiting, or exertional symptoms. The patient does have a history of aortic valve replacement. Patient is no evidence of any murmur and no evidence of volume overload at least based on her clinical exam. Patient did have blood work completed, EKG, troponin, chest x-ray. Patient's chest x-ray is clear. Patient's history and physical exam along with vital signs less likely some sort of dissection or aneurysm. The patient had a nonischemic EKG with an undetectable troponin. Given the duration of her symptoms and other history and physical exam less likely ACS. The patient is not anemic. Patient would be PE RC positive however has a low wells score 1.5. Less likely PE. Patient was given strict follow-up, discharge, and return precautions. All questions were answered. Patient was deemed suitable for outpatient follow-up at this time. Patient agreed with the plan of care and was safely discharged home. Medication Reconcilliation Current Medication List: was personally reviewed by me Blood Pressure Screening Patient's blood pressure: Elevated blood pressure Blood pressure disposition: Elevated BP felt to be situational Impression Primary Impression: Chest tightness Scribe Attestation The scribe's documentation has been prepared under my direction and personally reviewed by me in its entirety. I confirm that the note above accurately reflects all work, treatment, procedures, and medical decision making performed by me. Departure Information Dispostion Home / Self-Care Referrals Renzo Barker M.D. (PCP) Forms Call Back Authorization, HOME CARE DOCUMENTATION FORM, IMPORTANT VISIT INFORMATION Patient Instructions My [facility]
[2018-06-17] MEDS ORDERED: ACETAMINOPHEN 500 MG TAB PO STA (14:49)
[2018-06-17] MEDS ORDERED: KETOROLAC TROMETHAMINE 30 MG/ML VIAL IV STA (14:49)
[2018-06-17 15:08] LABS: BASO % 1.3 %; BASO ABS # 0.08 K/uL (0-0.2); EOS % 4.3 %; EOS ABS # 0.27 K/uL (0-0.5); HEMATOCRIT 39.5 % (37-47); HEMOGLOBIN 12.6 g/dL (12.0-16.0); IG# 0.01 K/uL (0.00-0.02); LYMPH % 29.3 %; LYMPH ABS # 1.86 K/uL (1.2-3.4); MEAN CELL VOLUME 91.4 fL (80-100); MEAN CORPUSCULAR HEMOGLOBIN 29.2 pg (25-34); MEAN CORPUSCULAR HGB CONC 31.9 g/dl (32-36); MEAN PLATELET VOLUME 9.8 fL (7.4-10.4); MONO ABS # 0.51 K/uL (0.11-0.59); NEUT % 56.9 %; NEUT ABS # 3.61 K/uL (1.4-6.5); PLATELET COUNT 244 K/uL (130-400); RED CELL DISTRIBUTION WIDTH CV 15.2 % (11.5-14.5); RED CELL DISTRIBUTION WIDTH SD 51.1 fL (36.4-46.3); WHITE BLOOD COUNT 6.34 K/uL (4.8-10.8)
--- NOTE | 2018-06-17 15:11 | DIAGNOSTIC IMAGING REPORT ---
CHEST ONE VIEW PORTABLE CLINICAL HISTORY: CHEST PAIN dyspnea COMPARISON STUDY: 01/21/2018 FINDINGS: The bones soft tissues and hemidiaphragms are normal. The cardiomediastinal silhouette is normal. The lungs are clear. The pulmonary vasculature is normal. IMPRESSION: Negative chest. The above report was generated using voice recognition software. It may contain grammatical, syntax or spelling errors. Electronically signed by: Tim Siegel M.D. 06/17/2018 3:09 PM Dictated Date/Time: 06/17/2018 3:08 PM
[2018-06-17 15:23] LABS: PTT PATIENT 25.8 SECONDS (21.0-31.0)
[2018-06-17] MEDS ORDERED: COEN1CAP7 PO (15:28)
[2018-06-17 15:32] LABS: ALBUMIN 3.3 gm/dl (3.4-5.0); ALKALINE PHOSPHATASE 91 U/L (45-117); ALT/SGPT 19 U/L (12-78); AST/SGOT 14 U/L (15-37); BLOOD UREA NITROGEN 19 mg/dl (7-18); CALCIUM 9.2 mg/dl (8.5-10.1); CARBON DIOXIDE 25 mmol/L (21-32); CREATININE 0.96 mg/dl (0.60-1.20); GLUCOSE 90 mg/dl (70-99); LIPASE 173 U/L (73-393); POTASSIUM 3.9 mmol/L (3.5-5.1); SODIUM 141 mmol/L (136-145); TOTAL PROTEIN 7.8 gm/dl (6.4-8.2)
[2018-06-17] MEDS ORDERED: PRAV10TA39 PO (15:33)
[2018-06-17] MEDS ORDERED: MELA1TAB4 PO (15:33)
[2018-06-17] MEDS ORDERED: GARL500C5 PO (15:35)
[2018-06-17 16:56] VITALS: BP 124/77; PULSE 66; TEMP 36.4; O2SAT 95
== END 2018-06-17 16:57 | disposition home or self-care (01) ==
LOC: C.EDB 14:13 → C.EDA 16:57
DX: R07.89 Other chest pain (principal); R03.0 Elevated blood-pressure reading, without diagnosis of hypertension; Z95.2 Presence of prosthetic heart valve; Z82.49 Family history of ischemic heart disease and other diseases of the circulatory system

== ENCOUNTER 2020-03-28 08:04 | Observation (INO) ==
[2020-03-28] MEDS ORDERED: ONDANSETRON INJ 2 MG/ML 2 ML VIAL IV STA (08:37)
[2020-03-28] MEDS ORDERED: NITROGLYCERIN SL 0.4 MG/TAB TAB SL STA (08:38)
--- NOTE | 2020-03-28 08:48 | Emergency Department Note ---
ED Visit Note I assisted Dr. Vora in the care of this patient. Please see attending attestation. Mark Samuel DO Resident, Family & Community Medicine, [facility] . Resident Activity Tracking Resident Involvement: Resident Care Provided Care Provided: Adult ED
--- NOTE | 2020-03-28 09:09 | XRay Report ---
XR chest 1V portable CLINICAL HISTORY: Chest Pain pain COMPARISON STUDY: 10/02/2018 FINDINGS: Mild stable cardiomegaly. Mild chronic elevation right hemidiaphragm. The lungs are considered clear. IMPRESSION: Chronic change. No acute process. ACT 112: Negative or not required by law. The above report was generated using voice recognition software. It may contain grammatical, syntax or spelling errors. Electronically signed by: Tim Siegel M.D. 03/28/2020 9:07 AM
[2020-03-28 09:16] LABS: Basophils # (auto) 0.04 K/uL (0-0.2); Basophils % (auto) 0.7 %; Eosinophils # (auto) 0.18 K/uL (0-0.5); Eosinophils % (auto) 2.9 %; Hematocrit (blood only) 38.3 % (37-47); Hemoglobin 12.3 g/dL (12.0-16.0); Immature Granulocytes # (auto) 0.02 K/uL (0.00-0.02); Immature Granulocytes % (auto) 0.3 %; Lymphocytes # (auto) 1.76 K/uL (1.2-3.4); Lymphocytes % (auto) 28.8 %; Mean Corpuscular Hemoglobin 29.2 pg (25-34); Mean Corpuscular Hgb Conc 32.1 g/dL (32-36); Mean Platelet Volume 9.7 fL (7.4-10.4); Monocytes % (auto) 6.5 %; Neutrophils # (auto) 3.72 K/uL (1.4-6.5); Neutrophils % (auto) 60.8 %; Platelet Count 244 K/uL (130-400); RDW Coefficient of Variation 14.6 % (11.5-14.5); RDW Standard Deviation 48.6 fL (36.4-46.3); Red Blood Count 4.21 M/uL (4.2-5.4); White Blood Count 6.12 K/uL (4.8-10.8)
[2020-03-28] MEDS ORDERED: ASPIRIN CHEW 324 MG PO STA (09:25)
[2020-03-28 09:33] LABS: Partial Thromboplastin Time 27.4 Seconds (21.0-31.0); Prothrombin Time 10.6 Seconds (9.0-12.0)
[2020-03-28 09:35] LABS: Alanine Aminotransferase 18 U/L (12-78); Albumin Level 3.3 gm/dl (3.4-5.0); Aspartate Aminotransferase 14 U/L (15-37); BUN Creatinine Ratio 18.2 (10-20); Blood Urea Nitrogen 17 mg/dl (7-18); Calcium 8.9 mg/dl (8.5-10.1); Carbon Dioxide 24 mmol/L (21-32); Chloride 110 mmol/L (98-107); Creatinine Clr Calc Pharmacy 59.1 ml/min; Est GFR (Non-African American) 62.2; Glucose 101 mg/dl (70-99); Lipase 126 U/L (73-393); Potassium 3.6 mmol/L (3.5-5.1); Sodium 141 mmol/L (136-145)
--- NOTE | 2020-03-28 09:35 | Emergency Department Note ---
History of Present Illness General Chief complaint: Chest Pain Stated complaint: PAIN IN MIDDLE OF CHEST Time Seen by Provider: 03/28/20 08:17 Source: patient Mode of arrival: ambulatory History of Present Illness Provider complaint: Chest pain Onset (ago): day(s) 2 Location: chest Radiation: non-radiation Severity: moderate Pain Consistency: + other (Waxing and waning) Maximum Pain Intensity: 8 Quality: + other (Pressure) Relieved By: + none Associated symptoms: + shortness of breath; no cough, no fever/chills, no malaise and no nausea/vomiting This is a 75-year-old female who presents with chest pain. It started 2 days ago. It has been waxing and waning. She rates it an 8 out of 10 in severity. She describes it as a pressure in the middle of her chest without radiation. It is associated with some mild shortness of breath. She denies cough or cold symptoms, fever, known exposure to COVID-19, abdominal pain, leg swelling or pain or prior history of CAD. No alleviating factors. Home Medications Home Medications Medication Instructions Recorded Confirmed Type aspirin 81 mg PO QAM 10/02/18 03/28/20 History coenzyme Q10 200 mg PO QDL 10/02/18 03/28/20 History cholecalciferol (vitamin D3) 50 4,000 units PO QAM cap 04/29/19 03/28/20 H istory mcg (2,000 unit) capsule clonazepam 0.5 mg tablet 0.25 mg PO HS tab 04/29/19 03/28/20 History diclofenac sodium 1 % topical gel 4 gm TOP QID PRN 04/29/19 03/28/20 History naloxone 4 mg/actuation nasal spray 1 sprays INTNAS Q2M PRN ea 06/09/19 03/28/20 History pantoprazole 40 mg tablet,delayed 40 mg PO BID #180 tab 06/24/19 03/28/20 Rx release famotidine [Pepcid] 20 mg PO HS 09/07/19 03/28/20 History lisinopril 40 mg tablet 40 mg PO QAM #90 tab 10/25/19 03/28/20 Rx biotin 2,500 mcg capsule 5 mg PO QDL cap 12/15/19 03/28/20 History omega-3 fatty acids 500 mg capsule 500 mg PO QDL 12/15/19 03/28/20 History baclofen 10 mg tablet See Rx Instructions .ROUTE 12/16/19 03/28/20 Rx .COMPLEX #180 tablet pravastatin 20 mg tablet 20 mg PO HS #30 tab 03/22/20 03/28/20 Rx atorvastatin 0 mg PO HS 03/28/20 03/28/20 History garlic 5,000 mg PO QDL 03/28/20 03/28/20 History ibuprofen [Advil] 200 mg PO Q6H PRN 03/28/20 03/28/20 History Allergies Allergy/AdvReac Type Severity Reaction Status Date / Time niacin Allergy Intermediate RASH Verified 03/28/20 09:49 linaclotide [From Linzess] AdvReac Severe Flatulence Verified 03/28/20 09:49 atorvastatin AdvReac Mild MUSCLE Verified 03/28/20 09:49 ACHES diltiazem AdvReac Mild HEADACHE Verified 03/28/20 09:49 rosuvastatin [From Crestor] AdvReac Mild Muscle Pain Verified 03/28/20 09:49 Past Med/Surg History Medical History Anosmia (Acute) Anxiety (Acute) Atopic dermatitis Back pain Smith's esophagus (Acute) Bloating Carotid artery plaque (Acute) Cataract Cervical polyp Cervical radiculopathy (Acute) Constipation Depression (Acute) Diastolic dysfunction (Acute) Discharge from nipple Diverticulitis (Inactive) Diverticulosis (Acute) Dizziness Endometrial cancer Endometrial polyp (Acute) GERD without esophagitis (Acute) Goiter diffuse, nontoxic Heart valve problem (Acute) Hiatal hernia (Acute) Hyperglobulinemia (Acute) Hyperglycemia (Acute) Hyperlipidemia (Acute) Hypertension (Acute) Hypokalemia Impaired fasting glucose (Acute) Insomnia (Acute) Internal hemorrhoids (Inactive) Itchy skin Leg cramps Lumbosacral radiculopathy (Acute) Microscopic hematuria Migraine Murmur (Acute) Nausea Nonalcoholic fatty liver disease (Acute) Nontoxic multinodular goiter (Acute) Numbness Numbness of both lower extremities Obesity, morbid, BMI 40.0-49.9 (Acute) Obstructive sleep apnea (Acute) Osteopenia (Acute) Pericarditis (Acute) Phantosmia (Acute) Pleural effusion, not elsewhere classified (Acute) Pleurisy (Acute) Prothrombin gene mutation (Acute) Pulmonary emboli (Resolved) Right bundle branch block (Acute) Sciatica (Acute) Thyroid nodule Vitamin D deficiency (Acute) Surgical History H/O aortic valve replacement History of arthroscopy of left knee History of back surgery History of cholecystectomy History of hysterectomy with bilateral oophorectomy Status post aortic valve replacement with bioprosthetic valve (Acute) Family History Unknown Diabetes Cardiac disorder Hypertension Kidney stones Lung cancer Cancer of heart Malignant neoplasm of stomach Other Colorectal cancer Family history non-contributory Social History Preferred Language: Ukrainian Visual Impairment: No Limitations Hearing Ability: Normal Beliefs That Will Affect Care: None marital status: Current Living Situation: Spouse and Family current occupational status: unemployed current occupation: housewife, homemaker Feels Safe at Home: Yes Smoking Status: Never smoker Second Hand Exposure: No ; Hx Alcohol Use: No Review of Systems See HPI for pertinent positives & negatives. and A total of 10 systems reviewed and were otherwise negative Physical Exam Vital Signs Vital Signs - 24 hr 03/28/20 08:09 03/28/20 08:49 03/28/20 09:02 Temperature 37.0 C Temperature Source Oral Pulse Rate 76 61 Pulse Rate [Apical] 61 Pulse Rhythm Regular Pulse Rhythm [Apical] Regular Pulse Strength [Apical] Normal Respiratory Rate 20 20 Respiratory Effort / Characteristics Non-Labored Non-Labored Spontaneous Non-Labored Spontaneous Respiratory Depth Normal Normal Normal Respiratory Pattern Regular Blood Pressure 215/82 H Blood Pressure [Right Arm] 175/106 H Blood Pressure Mean 126 Blood Pressure Mean [Right Arm] 129 Blood Pressure Position [Right Arm] Sitting Pulse Oximetry 97 94 Oxygen Delivery Method Room Air Room Air Room Air Sepsis Recent Fever Within 48 Hours No Sepsis Action Taken by Nursing No Action Required 03/28/20 09:47 03/28/20 10:46 03/28/20 12:00 Temperature Temperature Source Pulse Rate Pulse Rate [Apical] 62 61 77 Pulse Rhythm Pulse Rhythm [Apical] Regular Regular Pulse Strength [Apical] Normal Normal Respiratory Rate 20 20 15 Respiratory Effort / Characteristics Non-Labored Spontaneous Non-Labored Spontaneous Non-Labored Spontaneous Respiratory Depth Normal Normal Normal Respiratory Pattern Regular Regular Regular Blood Pressure Blood Pressure [Right Arm] 162/86 H 192/83 H 202/104 H Blood Pressure Mean Blood Pressure Mean [Right Arm] 111 119 136 Blood Pressure Position [Right Arm] Sitting Sitting Sitting Pulse Oximetry 95 97 97 Oxygen Delivery Method Room Air Room Air Room Air Sepsis Recent Fever Within 48 Hours Sepsis Action Taken by Nursing Constitutional: Vital signs reviewed. Eyes: Pupils are equal round reactive to light. Conjunctiva are noninjected. ENT: Pharynx is clear without erythema or exudate. Mucous membranes are moist. Neck supple without meningeal signs. Respiratory: Clear to auscultation bilaterally. Breath sounds are equal bilaterally. Cardiovascular: Regular rate and rhythm. No rubs or gallops. GI: Soft, nondistended and nontender. Bowel sounds are present. Musculoskeletal: No peripheral edema. No lower extremity tenderness. Integumentary: No cyanosis. or jaundice. Neurological: The patient is awake and alert. No focal deficits. Psychiatric: Normal affect. Not anxious appearing. Course Administered Medications Discontinued Medications Acetaminophen (Tylenol) 650 mg PO NOW STA Stop: 03/28/20 10:56 Last Admin: 03/28/20 11:03 Dose: 650 mg Documented by: [id number] Hydrox/Mg Hydrox/Simethicone () 1 dose PO ONE ONE Stop: 03/28/20 12:01 Last Admin: 03/28/20 12:20 Dose: 1 dose Documented by: [id number] Aspirin (Aspirin) 324 mg PO NOW STA Stop: 03/28/20 09:26 Last Admin: 03/28/20 09:48 Dose: 324 mg Documented by: [id number] Isosorbide Mononitrate (Imdur Extended Rel) 30 mg PO NOW ONE Stop: 03/28/20 12:01 Last Admin: 03/28/20 12:20 Dose: 30 mg Documented by: [id number] Lisinopril (Zestril) 40 mg PO NOW STA Stop: 03/28/20 11:15 Last Admin: 03/28/20 11:38 Dose: 40 mg Documented by: [id number] Nitroglycerin (Nitrostat) 0.4 mg SL NOW STA Stop: 03/28/20 08:39 Last Admin: 03/28/20 08:53 Dose: 0.4 mg Documented by: [id number] Ondansetron HCl (Zofran) 4 mg IV NOW STA Stop: 03/28/20 08:38 Last Admin: 03/28/20 09:01 Dose: 4 mg Documented by: [id number] Pantoprazole Sodium (Protonix) 40 mg PO NOW STA Stop: 03/28/20 11:15 Last Admin: 03/28/20 11:38 Dose: 40 mg Documented by: [id number] Medical Decision Making Differential Diagnosis Unstable angina, CO, GERD, pneumonia, pleurisy Medical Records Attestation: I reviewed the patient's medical records. I did perform a limited focused review of portions of the patient's old chart on the electronic medical record. The patient has had no recent pertinent visits to this hospital. Home Medications Current Medication List: was personally reviewed by me Laboratory Data Attestation: I reviewed the patient's lab results. Result diagrams: 03/28/20 09:02 03/28/20 09:02 Lab Results 03/28/20 03/28/20 03/28/20 Range/Units 09:02 09:02 09:02 WBC 6.12 (4.8-10.8) K/uL RBC 4.21 (4.2-5.4) M/uL Hgb 12.3 (12.0-16.0) g/dL Hct 38.3 (37-47) % MCV 91.0 (80-100) fL MCH 29.2 (25-34) pg MCHC 32.1 (32-36) g/dL RDW Std Deviation 48.6 H (36.4-46.3) fL RDW Coeff of Elsa 14.6 H (11.5-14.5) % Plt Count 244 (130-400) K/uL MPV 9.7 (7.4-10.4) fL Immature Gran % (Auto) 0.3 % Neut % (Auto) 60.8 % Lymph % (Auto) 28.8 % [place] % (Auto) 6.5 % Eos % (Auto) 2.9 % Baso % (Auto) 0.7 % Immature Gran # (Auto) 0.02 (0.00-0.02) K/uL Neut # (Auto) 3.72 (1.4-6.5) K/uL Lymph # (Auto) 1.76 (1.2-3.4) K/uL [place] # (Auto) 0.40 (0.11-0.59) K/uL Eos # (Auto) 0.18 (0-0.5) K/uL Baso # (Auto) 0.04 (0-0.2) K/uL PT 10.6 (9.0-12.0) Seconds INR 1.0 (0.9-1.1) APTT 27.4 (21.0-31.0) Seconds PTT Ratio 1.0 Sodium 141 (136-145) mmol/L Potassium 3.6 (3.5-5.1) mmol/L Chloride 110 H (98-107) mmol/L Carbon Dioxide 24 (21-32) mmol/L Anion Gap 7.0 (3-11) BUN 17 (7-18) mg/dl Creatinine 0.91 (0.6-1.2) mg/dl Est Cr Clr Drug Dosing 59.1 ml/min Est GFR ( Amer) 72.0 Est GFR (Non-Af Amer) 62.2 BUN/Creatinine Ratio 18.2 (10-20) Glucose 101 H (70-99) mg/dl Calcium 8.9 (8.5-10.1) mg/dl Total Bilirubin 0.3 (0.2-1) mg/dl AST 14 L (15-37) U/L ALT 18 (12-78) U/L Alkaline Phosphatase 106 (45-117) U/L Troponin I < 0.015 (0-0.045) ng/ml Total Protein 7.5 (6.4-8.2) gm/dl Albumin 3.3 L (3.4-5.0) gm/dl Globulin 4.2 H (2.5-4.0) gm/dl Albumin/Globulin Ratio 0.8 L (0.9-2) Lipase 126 (73-393) U/L 03/28/20 Range/Units 11:43 WBC (4.8-10.8) K/uL RBC (4.2-5.4) M/uL Hgb (12.0-16.0) g/dL Hct (37-47) % MCV (80-100) fL MCH (25-34) pg MCHC (32-36) g/dL RDW Std Deviation (36.4-46.3) fL RDW Coeff of Elsa (11.5-14.5) % Plt Count (130-400) K/uL MPV (7.4-10.4) fL Immature Gran % (Auto) % Neut % (Auto) % Lymph % (Auto) % [place] % (Auto) % Eos % (Auto) % Baso % (Auto) % Immature Gran # (Auto) (0.00-0.02) K/uL Neut # (Auto) (1.4-6.5) K/uL Lymph # (Auto) (1.2-3.4) K/uL [place] # (Auto) (0.11-0.59) K/uL Eos # (Auto) (0-0.5) K/uL Baso # (Auto) (0-0.2) K/uL PT (9.0-12.0) Seconds INR (0.9-1.1) APTT (21.0-31.0) Seconds PTT Ratio Sodium (136-145) mmol/L Potassium (3.5-5.1) mmol/L Chloride (98-107) mmol/L Carbon Dioxide (21-32) mmol/L Anion Gap (3-11) BUN (7-18) mg/dl Creatinine (0.6-1.2) mg/dl Est Cr Clr Drug Dosing ml/min Est GFR ( Amer) Est GFR (Non-Af Amer) BUN/Creatinine Ratio (10-20) Glucose (70-99) mg/dl Calcium (8.5-10.1) mg/dl Total Bilirubin (0.2-1) mg/dl AST (15-37) U/L ALT (12-78) U/L Alkaline Phosphatase (45-117) U/L Troponin I < 0.015 (0-0.045) ng/ml Total Protein (6.4-8.2) gm/dl Albumin (3.4-5.0) gm/dl Globulin (2.5-4.0) gm/dl Albumin/Globulin Ratio (0.9-2) Lipase (73-393) U/L Imaging Data Radiologist's Impression: CT abd pelvis wo con CT DOSE: HISTORY: Flank pain left sided pain TECHNIQUE: Multiaxial CT images of the abdomen and pelvis were performed without contrast. A dose lowering technique was utilized adhering to the principles of ALARA. COMPARISON STUDY: Renal ultrasound same date FINDINGS: Lung bases are clear. Study is compromised due to the lack of intravenous contrast enhancement. Liver spleen and pancreas are unremarkable. Kidneys are considered negative for hydronephrosis. Perinephric spaces are intact. The subtle edematous change on ultrasound involving the left kidney is not appreciated on this study which may in part be due to the lack of contrast. Nonobstructive bowel pattern. No evidence for abscess or collection. IMPRESSION: No significant abnormality identified within the abdomen or pelvis. No evidence for renal hydronephrosis. ACT 112: Negative or not required by law. The above report was generated using voice recognition software. It may contain grammatical, syntax or spelling errors. Electronically signed by: Tim Siegel M.D. 03/28/2020 11:28 AM BILATERAL LOWER EXTREMITY VENOUS DOPPLER HISTORY: Acute pain and swelling of the bilateral lower extremities r/o vte COMPARISON STUDY: Duplex venous Doppler study 01/09/2018. FINDINGS: There is normal compressibility, flow, and augmentation within the bilateral lower extremity deep venous systems. Cystic structure of the left popliteal fossa, 5.5 x 6.5 x 1.2 cm suggestive of a complex Rosas's cyst. IMPRESSION: No DVT within the right or left lower extremity. ACT 112: Negative or not required by law. Electronically signed by: Demario Vargas M.D. 03/28/2020 10:44 AM ECG Data Attestation: I personally reviewed and interpreted this ECG as follows: Indication: + chest pain Rate (beats per minute): 69 Rhythm: + normal sinus ECG Intervals/blocks: + Right Bundle branch block ECG ST segments: no ST elevation ECG Findings: no PVCs Comparison ECG Date: from (September 07, 2019) Change: no significant change Blood Pressure Blood Pressure Findings: Elevated blood pressure Blood Pressure Disposition: further management by hospitalist CARLYN Narrative I did evaluate the patient as noted above. The patient is presenting with chest pressure. Her heart score is 4. IV access was established. I did place an order for continuous cardiac monitoring. The monitor showed normal sinus rhythm rate of 61. I did order and personally review the patient's 12-lead EKG as described above. She has an old right bundle branch block with no acute ischemic changes. I did order and personally reviewed the images of the patient's chest x-ray as described above. There is no evidence of acute process. I did order and review the patient's blood work as noted in the electronic medical record. CBC is unremarkable without leukocytosis or anemia. Electrolytes are unremarkable. Troponin is negative. When the resident reassessed the patient she stated that she was having leg pain. She stated that this was a chronic process but it was hurting her now. We did order a Doppler ultrasound of the lower extremity. I did review the images myself as well as the radiology report as described above. These are negative for DVT. The test results were discussed with the patient. We did recommend hospitalization. The case was discussed with the hospitalist and case hardener. Resident Physician Supervision Note: I did perform an independent evaluation and examination of this patient as described. I also saw this patient in conjunction with the resident, Dr. Samuel, and guided management for the patient. Impression & Plan Chest pain, Bilateral leg pain Discharge Plan Visit Data Chief Complaint: Chest Pain Stated Complaint: PAIN IN MIDDLE OF CHEST ED Provider: Munir Vora ED Midlevel Provider: Mark Samuel Discharge Problem: Chest pain, Bilateral leg pain Discharge Instructions Interventions: ED Discharge Assessment Last Done: 03/28/20 14:25
[2020-03-28 09:40] LABS: Albumin Globulin Ratio 0.8 (0.9-2); Alkaline Phosphatase 106 U/L (45-117); Bilirubin,Total 0.3 mg/dl (0.2-1); Globulin 4.2 gm/dl (2.5-4.0); Total Protein 7.5 gm/dl (6.4-8.2); Troponin I < 0.015 ng/ml (0-0.045)
--- NOTE | 2020-03-28 10:46 | Ultrasound Report ---
BILATERAL LOWER EXTREMITY VENOUS DOPPLER HISTORY: Acute pain and swelling of the bilateral lower extremities r/o vte COMPARISON STUDY: Duplex venous Doppler study 01/09/2018. FINDINGS: There is normal compressibility, flow, and augmentation within the bilateral lower extremit y deep venous systems. Cystic structure of the left popliteal fossa, 5.5 x 6.5 x 1.2 cm suggestive of a complex Rosas's cyst. IMPRESSION: No DVT within the right or left lower extremity. ACT 112: Negative or not required by law. Electronically signed by: Demario Vargas M.D. 03/28/2020 10:44 AM
[2020-03-28] MEDS ORDERED: ACETAMINOPHEN 325 MG TAB PO STA (10:55)
[2020-03-28] MEDS ORDERED: lisinopriL 20 MG TAB PO STA (11:14)
[2020-03-28] MEDS ORDERED: PANTOprazole 40 MG TAB PO STA (11:14)
--- NOTE | 2020-03-28 11:20 | History & Physical Report ---
Date of Service March 28, 2020 Assessment & Plan (1) Chest pain at rest: Longstanding history of this but the maintains this is different from prior. 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 Possible related to hypertensive emergency although no troponin rise Most likely esophageal spasm related given eating hot sausage earlier in day, worse with lying down. Given cardiac history and prior history of pericarditis (no EKG changes to suggest this but worse with lying down) will consult her director of psychology to assess whether further cardiac workup is warranted. (2) Esophageal spasm: Suspected based on history and improvement with nitro Will start on ISMN 30mg ER to help both this and her BP (3) GERD without esophagitis: Continue pantoprazole 40mg PO BID and famotidine 20mg HS (4) Hypertensive urgency: No definitive end organ damage but possibly headache and chest pain may be related. Will aim to slowly bring blood pressure down by initially giving her usual dose of lisinopril she missed this morning in addition to ISMN 30mg ER (5) Right bundle branch block: Noted history of this. Not acute. (6) Insomnia: Highly advised to wean herself off clonazepam which she has been trying to do. Will continue while she is in hospital (7) Hyperlipidemia: No longer taking pravastatin (8) DVT prophylaxis: SCDs If staying beyond tomorrow consider chemical VTE prophylaxis Admission and Anticipated Discharge Date Admission Date: 03/28/2020 Anticipated date of discharge: 03/29/20 History of Present Illness Chief Complaint: Chest pain Primary Care Provider: Renzo Barker MD Lidya Madsen is a 75 year old female who presented to the ER with chest pain. Looking back through her history this appears to be a recurring chronically intermittent complaint although she reports this pain is different from her usual chest wall tenderness. Started on Friday night around 10pm. That day she had been at a BB with her granddaughter and does endorse eating a hot sausage but did not have any immediate problem with her reflux from this. Symptoms first occurred at rest while sitting in her lounge chair. Retrosternal, no radiation, no worse with inspiration, severity 10/10 initially, lasted for 2 hours, no worse on exertion but worse with lying down, associated intermittent shortness of breath and nausea, no diaphoresis. Associated dizziness, not unusual for her but worse recently. The pain has also been in her abdomen, feeling sick to her stomach. Appeared to subside eventually but returned in the morning and it has been there since then with significant relief with nitroglycerin given in the ER. She notes she is not longer taking her pravastatin for the last 2 days as it was causing muscle weakness again. Feels her stress is increased recently with the coronavirus. Allergies Allergy/AdvReac Type Severity Reaction Status Date / Time niacin Allergy Intermediate RASH Verified 03/28/20 09:49 linaclotide [From Linzess] AdvReac Severe Flatulence Verified 03/28/20 09:49 atorvastatin AdvReac Mild MUSCLE Verified 03/28/20 09:49 ACHES diltiazem AdvReac Mild HEADACHE Verified 03/28/20 09:49 rosuvastatin [From Crestor] AdvReac Mild Muscle Pain Verified 03/28/20 09:49 Home Medications Home Medications Medication Instructions Recorded Confirmed Type aspirin 81 mg PO QAM 10/02/18 03/28/20 History coenzyme Q10 200 mg PO QDL 10/02/18 03/28/20 History cholecalciferol (vitamin D3) 50 4,000 units PO QAM cap 04/29/19 03/28/20 History mcg (2,000 unit) capsule clonazepam 0.5 mg tablet 0.25 mg PO HS tab 04/29/19 03/28/20 History diclofenac sodium 1 % topical gel 4 gm TOP QID PRN 04/29/19 03/28/20 History naloxone 4 mg/actuation nasal spray 1 sprays INTNAS Q2M PRN ea 06/09/19 03/28/20 History pantoprazole 40 mg tablet,delayed 40 mg PO BID #180 tab 06/24/19 03/28/20 Rx release famotidine [Pepcid] 20 mg PO HS 09/07/19 03/28/20 History lisinopril 40 mg tablet 40 mg PO QAM #90 tab 10/25/19 03/28/20 Rx biotin 2,500 mcg capsule 5 mg PO QDL cap 12/15/19 03/28/20 History omega-3 fatty acids 500 mg capsule 500 mg PO QDL 12/15/19 03/28/20 History baclofen 10 mg tablet See Rx Instructions .ROUTE 12/16/19 03/28/20 Rx .COMPLEX #180 tablet pravastatin 20 mg tablet 20 mg PO HS #30 tab 03/22/20 03/28/20 Rx atorvastatin 0 mg PO HS 03/28/20 03/28/20 History garlic 5,000 mg PO QDL 03/28/20 03/28/20 History ibuprofen [Advil] 200 mg PO Q6H PRN 03/28/20 03/28/20 History Past Med/Surg History Medical History Anosmia (Acute) Anxiety (Acute) Atopic dermatitis Back pain Smith's esophagus (Acute) Bloating Carotid artery plaque (Acute) Cataract Cervical polyp Cervical radiculopathy (Acute) Constipation Depression (Acute) Diastolic dysfunction (Acute) Discharge from nipple Diverticulitis (Inactive) Diverticulosis (Acute) Dizziness Endometrial cancer Endometrial polyp (Acute) GERD without esophagitis (Acute) Goiter diffuse, nontoxic Heart valve problem (Acute) Hiatal hernia (Acute) Hyperglobulinemia (Acute) Hyperglycemia (Acute) Hyperlipidemia (Acute) Hypertension (Acute) Hypokalemia Impaired fasting glucose (Acute) Insomnia (Acute) Internal hemorrhoids (Inactive) Itchy skin Leg cramps Lumbosacral radiculopathy (Acute) Microscopic hematuria Migraine Murmur (Acute) Nausea Nonalcoholic fatty liver disease (Acute) Nontoxic multinodular goiter (Acute) Numbness Numbness of both lower extremities Obesity, morbid, BMI 40.0-49.9 (Acute) Obstructive sleep apnea (Acute) Osteopenia (Acute) Pericarditis (Acute) Phantosmia (Acute) Pleural effusion, not elsewhere classified (Acute) Pleurisy (Acute) Prothrombin gene mutation (Acute) Pulmonary emboli (Resolved) Right bundle branch block (Acute) Sciatica (Acute) Thyroid nodule Vitamin D deficiency (Acute) Surgical History H/O aortic valve replacement History of arthroscopy of left knee History of back surgery History of cholecystectomy History of hysterectomy with bilateral oophorectomy Status post aortic valve replacement with bioprosthetic valve (Acute) Family History Unknown Diabetes Cardiac disorder Hypertension Kidney stones Lung cancer Cancer of heart Malignant neoplasm of stomach Other Colorectal cancer Family history non-contributory Social History Preferred Language: Malay Communication Ability: Effective Visual Impairment: No Limitations Hearing Ability: Normal Beliefs That Will Affect Care: Worship Worship Beliefs: Jehovahs Witness marital status: Current Living Situation: Spouse and Family current occupational status: unemployed current occupation: housewife, homemaker Other Information That Helps Us Care for You: No Feels Safe at Home: Yes Safety Concerns: Feels Safe At This Time Smoking Status: Never smoker Do You Dip or Chew Tobacco: No ; Second Hand Exposure: No ; Tobacco Cessation Education Requested by Patient: No Hx Alcohol Use: No Hx Substance Use: No Review of Systems Review of Systems: All systems reviewed & are unremarkable except as noted in HPI & below Physical Exam Constitutional: well developed and + obese; + not well nourished and no acute distress Eyes: PERRL, conjunctivae normal, anicteric sclerae ENMT: external ear and nose normal, oropharynx normal Neck: trachea midline, no thyromegaly + short neck and + thick neck Respiratory: normal respiratory effort, lungs clear to auscultation Cardiovascular: Rate/Rhythm: regular rate and regular rhythm Heart Sounds: normal S1 and normal S2; no murmur Vessels: normal peripheral pulses; no JVD Extremities: normal capillary refill and + pedal edema (1+ edema in ankles) Gastrointestinal (Abdomen): Inspection/Auscultation: normal bowel sounds; abdomen not distended Percussion/Palpation: + abdomen tender (mild epigastric tenderness on deep palpation (different pain to her admitti) and abdomen soft; no guarding, abdomen not rigid and no hepatosplenomegaly Musculoskeletal: no cyanosis or clubbing, extremities motor strength 5/5 Skin: no rashes, warm and dry Neurologic: moves all extremities and awake; no focal motor deficits and not confused Psychiatric: A+Ox3, euthymic affect Genitourinary: no CVA tenderness Lymphatic: no cervical or axillary lymphadenopathy Results & Data Results & Data ([facility]) Vital Signs (Past 12 Hours) Vital Signs Temp Pulse Pulse Resp BP BP Pulse Ox 03/28/20 10:46 61 20 192/83 H 97 03/28/20 09:47 62 20 162/86 H 95 03/28/20 09:02 61 61 20 175/106 H 94 03/28/20 08:09 37.0 C 76 20 215/82 H 97 Diagnostic Findings XR chest 1V portable IMPRESSION: Chronic change. No acute process. BILATERAL LOWER EXTREMITY VENOUS DOPPLER IMPRESSION: No DVT within the right or left lower extremity. ECG Indication: chest pain Rate (beats per minute): 69 Rhythm: normal sinus Findings: + RBBB; no acute ischemic change Comparison ECG Date: from (03/28/2020) Change: no significant change Code Status & VTE Plan Code Status Extensive discussion with patient. She declines intubation under any emergent circumstance but all other interventions including CPR she would like. VTE Prophylaxis Plan VTE Prophylaxis will be ordered: Yes PG Care Time/CCT Total # of Minutes Spent Total Time Spent with Patient: Total time spent is greater than 50% in coordination of care (as documented) at patient's floor/unit and/or counseling patient: Coding Level of Care Code 00583 Initial Inpt Care Lvl 3 Diagnoses Chest pain at rest R07.9 Esophageal spasm K22.4 GERD without esophagitis K21.9 Hypertensive urgency I16.0 Right bundle branch block I45.10 Insomnia G47.00 Hyperlipidemia E78.5 DVT prophylaxis Z29.9
[2020-03-28] MEDS ORDERED: ALUMINUM/MAGNESIUM SUSP 18 ML, LIDOCAINE HCL VISCOUS 2% 6 ML, BARCODE IDENTIFIER 1 EA PO ONE (11:38)
[2020-03-28] MEDS ORDERED: ISOSORBIDE MONO EXTENDED REL 30 MG TABCR PO ONE (12:00)
[2020-03-28] MEDS ORDERED: GI COCKTAIL ED USE PO ONE (12:00)
[2020-03-28] MEDS ORDERED: ONDANSETRON INJ 2 MG/ML 2 ML VIAL IV PRN (14:43)
[2020-03-28] MEDS ORDERED: DICLOFENAC SOD 1% GEL 100 GM TUBE EXT PRN (14:43)
[2020-03-28] MEDS ORDERED: HydrALAZINE HCL 20 MG/ML VIAL IV PRN (14:43)
--- NOTE | 2020-03-28 15:34 | Electrocardiogram Report ---
Test Reason : Blood Pressure : / mmHG Vent. Rate : 069 BPM Atrial Rate : 069 BPM P-R Int : 168 ms QRS Dur : 146 ms QT Int : 436 ms P-R-T Axes : 034 -19 019 degrees QTc Int : 467 ms Normal sinus rhythm Right bundle branch block Minimal voltage criteria for LVH, may be normal variant Abnormal ECG When compared with ECG of 07-SEP-2019 14:31, No significant change was found Confirmed by Jose Fink ([id number]) on 03/28/2020 3:34:36 PM Referred By: REFERRED SELF Confirmed By:Jose Fink
--- NOTE | 2020-03-28 15:44 | Cardiology Consultation ---
Date of Consultation March 28, 2020 Assessment & Plan (1) Atypical chest pain: Lidya Madsen is a 75y/o F with PMH significant for HTN, HLD, atypical chest pain, GERD, hiatal hernia, anxiety, and aortic stenosis s/p bioprosthetic aortic valve replacement; who presented to the hospital for evaluation of chest pain that had been present for the last two days. Atypical Chest Pain: - given atypical symptoms, unlikely to be of cardiac origin - epigastric tenderness and relief of symptoms with soda and vinegar, in addition to patient's history of gastric upset, make GI source likely - has had two undetectable troponin levels greater than 4 hours following start of chest pain/discomfort - EKG unchanged as compared to 09/2019 - CXR does not demonstrate increased pulmonary congestion or progressing cardiomegaly Hypertension: - on presentation to ED BP 215/82 with downtrending to 166/66 following admission - previously well controlled on Lisinopril 40mg daily - with patient's baseline anxiety and feelings of increased anxiety due to the current pandemic, in addition to current discomfort could cause elevated BP - continue home Lisinopril 40mg - continue to monitor (2) Hypertension: Supervising Physician Co-Signing Physician Notes Patient seen and examined with Dr. Haddad. Agree with his assessment and plan. History of Present Illness Attending Physician: Smith Coates MD History of Present Illness Lidya Madsen is a 75y/o F with PMH significant for HTN, HLD, atypical chest pain, GERD, hiatal hernia, anxiety, and aortic stenosis s/p bioprosthetic aortic valve replacement; who presented to the hospital for evaluation of chest pain that had been present for the last two days. Two days ago, she first noticed around 10pm that while resting in a lounge chair she started to have some chest discomfort/pain that she rates as a 10/10. This pain was not associated with shortness of breath or radiation, and she is not sure how to best describe it, only notes that this was different from the chest pain she was having previously when she was seen and evaluated by Dr. Fuentes. Main difference with this new episode of pain was the dizziness she felt during that time and that when she went to lay flat she had more of a burning sensation that went towards her throat. This pain lasted several hours and did not relent until she called her PCP who advised her to take some OTC antacids or her reflux medication, when she didn't have any she decided to take some soda with some vinegar which caused her to burp a few times and this relieved the pain temporarily. The pain returned later yesterday, but worsened this morning to the point that she just couldn't take it. She describes it as an 8/10 this morning that was dropped to a 2/10 in the ED. Since Friday, she has had increased nausea, diaphoresis, bloating, and intermittent shortness of breath (predominantly due to the burning sensation she feels when laying down), but denies palpitations, weakness, or radiation of pain to neck or arms. Cardiac Catheterization in 2017 demonstrated: - 20-30% occlusion in mid-LAD - luminal irregularities of distal LAD - 20-30% occlusion of ostial D2 - luminal irregularities of L circumflex, OM1, and OM2 - luminal irregularities of RCA Allergies Allergy/AdvReac Type Severity Reaction Status Date / Time niacin Allergy Intermediate RASH Verified 03/28/20 09:49 linaclotide [From Linzess] AdvReac Severe Flatulence Verified 03/28/20 09:49 atorvastatin AdvReac Mild MUSCLE Verified 03/28/20 09:49 ACHES diltiazem AdvReac Mild HEADACHE Verified 03/28/20 09:49 rosuvastatin [From Crestor] AdvReac Mild Muscle Pain Verified 03/28/20 09:49 Home Medications Home Medications Medication Instructions Recorded Confirmed Type aspirin 81 mg PO QAM 10/02/18 03/28/20 History coenzyme Q10 200 mg PO QDL 10/02/18 03/28/20 History cholecalciferol (vitamin D3) 50 4,000 units PO QAM cap 04/29/19 03/28/20 History mcg (2,000 unit) capsule clonazepam 0.5 mg tablet 0.25 mg PO HS tab 04/29/19 03/28/20 History diclofenac sodium 1 % topical gel 4 gm TOP QID PRN 04/29/19 03/28/20 History naloxone 4 mg/actuation nasal spray 1 sprays INTNAS Q2M PRN ea 06/09/19 03/28/20 History pantoprazole 40 mg tablet,delayed 40 mg PO BID #180 tab 06/24/19 03/28/20 Rx release famotidine [Pepcid] 20 mg PO HS 09/07/19 03/28/20 History lisinopril 40 mg tablet 40 mg PO QAM #90 tab 10/25/19 03/28/20 Rx biotin 2,500 mcg capsule 5 mg PO QDL cap 12/15/19 03/28/20 History omega-3 fatty acids 500 mg capsule 500 mg PO QDL 12/15/19 03/28/20 History baclofen 10 mg tablet See Rx Instructions .ROUTE 12/16/19 03/28/20 Rx .COMPLEX #180 tablet pravastatin 20 mg tablet 20 mg PO HS #30 tab 03/22/20 03/28/20 Rx atorvastatin 0 mg PO HS 03/28/20 03/28/20 History garlic 5,000 mg PO QDL 03/28/20 03/28/20 History ibuprofen [Advil] 200 mg PO Q6H PRN 03/28/20 03/28/20 History Patient History Medical History Anosmia (Acute) Anxiety (Acute) Atopic dermatitis Back pain Smith's esophagus (Acute) Bloating Carotid artery plaque (Acute) Cataract Cervical polyp Cervical radiculopathy (Acute) Constipation Depression (Acute) Diastolic dysfunction (Acute) Discharge from nipple Diverticulitis (Inactive) Diverticulosis (Acute) Dizziness Endometrial cancer Endometrial polyp (Acute) GERD without esophagitis (Acute) Goiter diffuse, nontoxic Heart valve problem (Acute) Hiatal hernia (Acute) Hyperglobulinemia (Acute) Hyperglycemia (Acute) Hyperlipidemia (Acute) Hypertension (Acute) Hypokalemia Impaired fasting glucose (Acute) Insomnia (Acute) Internal hemorrhoids (Inactive) Itchy skin Leg cramps Lumbosacral radiculopathy (Acute) Microscopic hematuria Migraine Murmur (Acute) Nausea Nonalcoholic fatty liver disease (Acute) Nontoxic multinodular goiter (Acute) Numbness Numbness of both lower extremities Obesity, morbid, BMI 40.0-49.9 (Acute) Obstructive sleep apnea (Acute) Osteopenia (Acute) Pericarditis (Acute) Phantosmia (Acute) Pleural effusion, not elsewhere classified (Acute) Pleurisy (Acute) Prothrombin gene mutation (Acute) Pulmonary emboli (Resolved) Right bundle branch block (Acute) Sciatica (Acute) Thyroid nodule Vitamin D deficiency (Acute) Surgical History H/O aortic valve replacement History of arthroscopy of left knee History of back surgery History of cholecystectomy History of hysterectomy with bilateral oophorectomy Status post aortic valve replacement with bioprosthetic valve (Acute) Family History Unknown Diabetes Cardiac disorder Hypertension Kidney stones Lung cancer Cancer of heart Malignant neoplasm of stomach Other Colorectal cancer Family history non-contributory Social History Preferred Language: Kyrgyz Communication Ability: Effective Visual Impairment: No Limitations Hearing Ability: Normal Beliefs That Will Affect Care: Sabianist Sabianist Beliefs: Jehovahs Witness marital status: Current Living Situation: Spouse and Family current occupational status: unemployed current occupation: housewife, homemaker Other Information That Helps Us Care for You: No Feels Safe at Home: Yes Safety Concerns: Feels Safe At This Time Smoking Status: Never smoker Do You Dip or Chew Tobacco: No ; Second Hand Exposure: No ; Tobacco Cessation Education Requested by Patient: No Hx Alcohol Use: No Hx Substance Use: No Review of Systems Review of Systems: All systems reviewed & are unremarkable except as noted in HPI & below Physical Exam Constitutional: WD/WN, vitals as above Eyes: PERRL, conjunctivae normal, anicteric sclerae Respiratory: normal respiratory effort, lungs clear to auscultation Cardiovascular: Rate/Rhythm: regular rate and regular rhythm Heart Sounds: normal S1, normal S2 and + murmur (systolic ejection murmur best heard over R upper sternal border) Vessels: no JVD Extremities: no edema Gastrointestinal (Abdomen): Inspection/Auscultation: abdomen normal to inspection and normal bowel sounds; abdomen not distended Percussion/Palpation: + abdomen tender (epigastric) Musculoskeletal: no cyanosis or clubbing, extremities motor strength 5/5 Skin: no rashes, warm and dry Results & Data ([facility]) Vital Signs (Past 12 Hours) Vital Signs Temp Pulse Pulse Resp BP BP Pulse Ox 03/28/20 14:43 36.7 C 77 20 166/66 H 96 03/28/20 14:00 70 19 132/73 97 03/28/20 12:42 65 16 142/82 H 97 03/28/20 12:00 77 15 202/104 H 97 03/28/20 10:46 61 20 192/83 H 97 03/28/20 09:47 62 20 162/86 H 95 03/28/20 09:02 61 61 20 175/106 H 94 03/28/20 08:09 37.0 C 76 20 215/82 H 97 Laboratory Results 03/28/20 03/28/20 03/28/20 Range/Units 11:43 09:02 09:02 WBC (4.8-10.8) K/uL RBC (4.2-5.4) M/uL Hgb (12.0-16.0) g/dL Hct (37-47) % MCV (80-100) fL MCH (25-34) pg MCHC (32-36) g/dL RDW Std Deviation (36.4-46.3) fL RDW Coeff of Elsa (11.5-14.5) % Plt Count (130-400) K/uL MPV (7.4-10.4) fL Immature Gran % (Auto) % Neut % (Auto) % Lymph % (Auto) % [place] % (Auto) % Eos % (Auto) % Baso % (Auto) % Immature Gran # (Auto) (0.00-0.02) K/uL Neut # (Auto) (1.4-6.5) K/uL Lymph # (Auto) (1.2-3.4) K/uL [place] # (Auto) (0.11-0.59) K/uL Eos # (Auto) (0-0.5) K/uL Baso # (Auto) (0-0.2) K/uL PT 10.6 (9.0-12.0) Seconds INR 1.0 (0.9-1.1) APTT 27.4 (21.0-31.0) Seconds PTT Ratio 1.0 Sodium 141 (136-145) mmol/L Potassium 3.6 (3.5-5.1) mmol/L Chloride 110 H (98-107) mmol/L Carbon Dioxide 24 (21-32) mmol/L Anion Gap 7.0 (3-11) BUN 17 (7-18) mg/dl Creatinine 0.91 (0.6-1.2) mg/dl Est Cr Clr Drug Dosing 59.1 ml/min Est GFR ( Amer) 72.0 Est GFR (Non-Af Amer) 62.2 BUN/Creatinine Ratio 18.2 (10-20) Glucose 101 H (70-99) mg/dl Calcium 8.9 (8.5-10.1) mg/dl Total Bilirubin 0.3 (0.2-1) mg/dl AST 14 L (15-37) U/L ALT 18 (12-78) U/L Alkaline Phosphatase 106 (45-117) U/L Troponin I < 0.015 < 0.015 (0-0.045) ng/ml Total Protein 7.5 (6.4-8.2) gm/dl Albumin 3.3 L (3.4-5.0) gm/dl Globulin 4.2 H (2.5-4.0) gm/dl Albumin/Globulin Ratio 0.8 L (0.9-2) Lipase 126 (73-393) U/L / Range/Units 09:02 WBC 6.12 (4.8-10.8) K/uL RBC 4.21 (4.2-5.4) M/uL Hgb 12.3 (12.0-16.0) g/dL Hct 38.3 (37-47) % MCV 91.0 (80-100) fL MCH 29.2 (25-34) pg MCHC 32.1 (32-36) g/dL RDW Std Deviation 48.6 H (36.4-46.3) fL RDW Coeff of Elsa 14.6 H (11.5-14.5) % Plt Count 244 (130-400) K/uL MPV 9.7 (7.4-10.4) fL Immature Gran % (Auto) 0.3 % Neut % (Auto) 60.8 % Lymph % (Auto) 28.8 % [place] % (Auto) 6.5 % Eos % (Auto) 2.9 % Baso % (Auto) 0.7 % Immature Gran # (Auto) 0.02 (0.00-0.02) K/uL Neut # (Auto) 3.72 (1.4-6.5) K/uL Lymph # (Auto) 1.76 (1.2-3.4) K/uL [place] # (Auto) 0.40 (0.11-0.59) K/uL Eos # (Auto) 0.18 (0-0.5) K/uL Baso # (Auto) 0.04 (0-0.2) K/uL PT (9.0-12.0) Seconds INR (0.9-1.1) APTT (21.0-31.0) Seconds PTT Ratio Sodium (136-145) mmol/L Potassium (3.5-5.1) mmol/L Chloride (98-107) mmol/L Carbon Dioxide (21-32) mmol/L Anion Gap (3-11) BUN (7-18) mg/dl Creatinine (0.6-1.2) mg/dl Est Cr Clr Drug Dosing ml/min Est GFR ( Amer) Est GFR (Non-Af Amer) BUN/Creatinine Ratio (10-20) Glucose (70-99) mg/dl Calcium (8.5-10.1) mg/dl Total Bilirubin (0.2-1) mg/dl AST (15-37) U/L ALT (12-78) U/L Alkaline Phosphatase (45-117) U/L Troponin I (0-0.045) ng/ml Total Protein (6.4-8.2) gm/dl Albumin (3.4-5.0) gm/dl Globulin (2.5-4.0) gm/dl Albumin/Globulin Ratio (0.9-2) Lipase (73-393) U/L Medications Administered Current Inpatient Medications Acetaminophen (Tylenol) 650 mg PO Q4H PRN PRN Reason: Pain or Fever Stop: 04/27/20 14:42 Aspirin (Ecotrin Ectab) 81 mg PO QAM JASSI Stop: 04/28/20 08:59 Clonazepam (Klonopin) 0.25 mg PO HS JASSI Stop: 04/27/20 20:59 Diclofenac Sodium (Voltaren 1% Top) 4 gm EXT QID PRN PRN Reason: pain Stop: 04/27/20 14:42 Famotidine (Pepcid) 20 mg PO HS JASSI Stop: 04/27/20 20:59 Hydralazine HCl (Hydralazine Hcl) 5 mg IV Q6H PRN PRN Reason: sBP > 220 Stop: 04/27/20 14:42 Lisinopril (Zestril) 40 mg PO QAM [facility] Stop: 04/28/20 08:59 Ondansetron HCl (Zofran) 4 mg IV Q4H PRN PRN Reason: Nausea or vomiting Stop: 04/27/20 14:42 Pantoprazole Sodium (Protonix) 40 mg PO BID [facility] Stop: 04/27/20 20:59 Vitamin D (Vitamin D3) 4,000 units PO QAM [facility] Stop: 04/28/20 08:59 PG Care Time/CCT Total # of Minutes Spent Total Time Spent with Patient: Total time spent is greater than 50% in coordination of care (as documented) at patient's floor/unit and/or counseling patient: Coding Level of Care Code 91701 OBS Care - Level 3 Diagnoses Atypical chest pain R07.89 Hypertension I10 Resident Activity Tracking Resident Involvement: Resident Care Provided Care Provided: Adult [facility] Medicine (Cardiology)
[2020-03-28] MEDS ORDERED: IBUPROFEN 200 MG TAB PO STA (19:34)
[2020-03-28] MEDS: PANTOprazole 40 MG TAB PO SCH (20:07)
[2020-03-28] MEDS ORDERED: FAMOTIDINE 20 MG TAB PO SCH (21:00)
[2020-03-28] MEDS ORDERED: clonazePAM 0.5 MG TAB PO SCH (21:00)
[2020-03-29] MEDS: ACETAMINOPHEN 325 MG TAB PO PRN ×2 (00:07→10:58)
[2020-03-29] MEDS: ALUMINUM/MAGNESIUM SUSP 30 ML UDC PO PRN ×2 (00:08→06:28)
[2020-03-29 04:43] LABS: Basophils # (auto) 0.04 K/uL (0-0.2); Basophils % (auto) 0.5 %; Eosinophils % (auto) 2.6 %; Hemoglobin 11.5 g/dL (12.0-16.0); Immature Granulocytes # (auto) 0.01 K/uL (0.00-0.02); Immature Granulocytes % (auto) 0.1 %; Lymphocytes # (auto) 1.79 K/uL (1.2-3.4); Mean Corpuscular Hemoglobin 29.2 pg (25-34); Mean Corpuscular Hgb Conc 31.9 g/dL (32-36); Mean Corpuscular Volume 91.4 fL (80-100); Mean Platelet Volume 9.7 fL (7.4-10.4); Monocytes # (auto) 0.78 K/uL (0.11-0.59); Neutrophils # (auto) 4.96 K/uL (1.4-6.5); Neutrophils % (auto) 63.8 %; Platelet Count 223 K/uL (130-400); RDW Coefficient of Variation 14.6 % (11.5-14.5); RDW Standard Deviation 49.2 fL (36.4-46.3); Red Blood Count 3.94 M/uL (4.2-5.4); White Blood Count 7.78 K/uL (4.8-10.8)
[2020-03-29 05:00] LABS: Alanine Aminotransferase 17 U/L (12-78); Albumin Level 3.1 gm/dl (3.4-5.0); Aspartate Aminotransferase 13 U/L (15-37); BUN Creatinine Ratio 16.3 (10-20); Blood Urea Nitrogen 18 mg/dl (7-18); Calcium 8.7 mg/dl (8.5-10.1); Carbon Dioxide 29 mmol/L (21-32); Chloride 109 mmol/L (98-107); Creatinine Clr Calc Pharmacy 48.4 ml/min; Est GFR (African American) 56.7; Est GFR (Non-African American) 48.9; Glucose 98 mg/dl (70-99); Sodium 141 mmol/L (136-145)
[2020-03-29 05:06] LABS: Albumin Globulin Ratio 0.8 (0.9-2); Alkaline Phosphatase 93 U/L (45-117); Bilirubin,Total 0.2 mg/dl (0.2-1); Globulin 3.8 gm/dl (2.5-4.0); Total Protein 6.9 gm/dl (6.4-8.2); Troponin I < 0.015 ng/ml (0-0.045)
[2020-03-29] MEDS: PANTOprazole 40 MG TAB PO SCH (08:54)
[2020-03-29] MEDS ORDERED: lisinopriL 40 MG TAB PO SCH (09:00)
[2020-03-29] MEDS ORDERED: CHOLECALCIFEROL 1,000 UNITS 25 MCG TAB PO SCH (09:00)
[2020-03-29] MEDS ORDERED: ISOSORBIDE MONO EXTENDED REL 30 MG TABCR PO SCH (09:00)
[2020-03-29] MEDS ORDERED: ASPIRIN 81 MG ECTAB PO SCH (09:00)
[2020-03-29] MEDS ORDERED: ALUMINUM/MAGNESIUM SUSP 72 ML, LIDOCAINE HCL VISCOUS 2% 24 ML, BARCODE IDENTIFIER 1 EA PO PRN (09:09)
[2020-03-29] MEDS ORDERED: BACLOFEN 10 MG TAB PO STA (09:18)
[2020-03-29] MEDS ORDERED: NON-FORMULARY MEDICATION (Coenzyme Q10 200 MG) PO SCH (11:30)
[2020-03-29] MEDS ORDERED: GARLIC PO SCH (11:30)
[2020-03-29] MEDS ORDERED: FATTY ACIDS PO SCH (11:30)
[2020-03-29] MEDS ORDERED: OMEGA PO SCH (11:30)
[2020-03-29] MEDS ORDERED: NON-FORMULARY MEDICATION (Biotin 5 MG) PO SCH (11:30)
[2020-03-29 13:00] VITALS: PULSE 67
[2020-03-29] MEDS ORDERED: SUMAtriptan succinate 6 MG/0.5 ML VIAL SQ STA (14:14)
[2020-03-29] MEDS ORDERED: KETOROLAC TROMETHAMINE 15 MG/ML VIAL IV ONE (14:14)
[2020-03-29 15:25] VITALS: BP 153/93; TEMP 97.7; O2SAT 95
--- NOTE | 2020-03-29 16:05 | Discharge Summary ---
Date of Service March 29, 2020 Admission HPI Per Admitting Provider Lidya Madsen is a 75 year old female who presented to the ER with chest pain. Looking back through her history this appears to be a recurring chronically intermittent complaint although she reports this pain is different from her usual chest wall tenderness. Started on Friday night around 10pm. That day she had been at a BBQ with her granddaughter and does endorse eating a hot sausage but did not have any immediate problem with her reflux from this. Symptoms first occurred at rest while sitting in her lounge chair. Retrosternal, no radiation, no worse with inspiration, severity 10/10 initially, lasted for 2 hours, no worse on exertion but worse with lying down, associated intermittent shortness of breath and nausea, no diaphoresis. Associated dizziness, not unusual for her but worse recently. The pain has also been in her abdomen, feeling sick to her stomach. Appeared to subside eventually but returned in the morning and it has been there since then with significant relief with nitroglycerin given in the ER. She notes she is not longer taking her pravastatin for the last 2 days as it was causing muscle weakness again. Feels her stress is increased recently with the coronavirus. Principal Diagnosis Epigastric pain Discharge Exam Constitutional WD/WN, vitals as above + overweight Eyes PERRL, conjunctivae normal, anicteric sclerae ENMT external ear and nose normal, oropharynx normal Neck trachea midline, no thyromegaly Respiratory normal respiratory effort, lungs clear to auscultation Cardiovascular RRR, no murmur, no edema Gastrointestinal (Abdomen) Inspection/Auscultation: abdomen normal to inspection and normal bowel sounds; abdomen not distended Percussion/Palpation: + abdomen tender (epigastric) and abdomen soft; no guarding, abdomen not rigid, no hepatosplenomegaly, no hernia and no ascites Musculoskeletal no cyanosis or clubbing, extremities motor strength 5/5 Skin no rashes, warm and dry Neurologic patellar DTR's 2+ bilat, sensation intact and PERRL, EOMI, accommodation nl, no face palsy, no dysarthria Psychiatric A+Ox3, euthymic affect Lymphatic no cervical or axillary lymphadenopathy Discharge Data Allergies Allergy/AdvReac Type Severity Reaction Status Date / Time niacin Allergy Intermediate RASH Verified 03/28/20 09:49 linaclotide [From Linzess] AdvReac Severe Flatulence Verified 03/28/20 09:49 atorvastatin AdvReac Mild MUSCLE Verified 03/28/20 09:49 ACHES diltiazem AdvReac Mild HEADACHE Verified 03/28/20 09:49 rosuvastatin [From Crestor] AdvReac Mild Muscle Pain Verified 03/28/20 09:49 Consultations 03/28/20 11:03 ED Decision to Admit Stat 03/28/20 11:28 Consult Cardiology Routine Ordered Studies 03/28/20 09:55 US venous doppler [facility] Stat Hospital Course (1) Epigastric pain: most of the pain is in the epigastric area mild tenderness on exam, almost superficial like muscle pain admits that she was shoveling some stones the day prior to the pain starting, more strenuous activity than normal relieved with Baclofen (2) Chest pain at rest: Longstanding history of this but the maintains this is different from prior. 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 Possible related to hypertensive emergency although no troponin rise 3 troponin negative, no EKG changes, cardiology consulted, do not feel like this is heart related pain she did have some relief with Nitro raising possibility that this could be esophageal spasm, see below (3) Esophageal spasm: Suspected based on history and improvement with nitro started on Imdur 30mg ER to help both this and her BP (quite elevated in the ED) follow up with PCP to see if symptoms improved (4) GERD without esophagitis: Continue pantoprazole 40mg PO BID and famotidine 20mg HS patient admitted to eating spicy foods the past weekend instructed her to avoid trigger foods, use TUMS or Maalox PRN it has been a few years since her last EGD, suggested referral to Dr. Lawler for follow up EGD on outpatient basis (5) Hypertensive urgency: No definitive end organ damage but possibly headache and chest pain may be related. continue lisinopril added Imdur 30mg daily follow up with PCP for BP check (6) Right bundle branch block: Noted history of this. Not acute. (7) Insomnia: Highly advised to wean herself off clonazepam which she has been trying to do. Will continue while she is in hospital (8) Hyperlipidemia: No longer taking pravastatin (9) Smith's esophagus: (10) Headache: h/o migraine headaches that resolved after menopause now with headache, frontal, suspect it is due to Imdur? she said it was like a migraine gave her dose of Sumatriptan SC and Toradol, CROCKETT resolved follow up with PCP, can use Advil at home but instructed that she NEEDS to take with food Total Time Total Time Spent Total Time Spent (In Minutes): 33 minutes Total Time Includes: Examination of the Patient, Discharge Planning, Medication Reconciliation and Communication With Other Providers (Dr. Fink) Discharge Plan Discharge Items Patient Disposition: Home - Self-Care Reason For Visit: CHEST PAIN R/O CARDIAC Discharge Diagnosis: Epigastric pain, likely due to reflux, hiatal hernia No evidence of heart attack Headache, likely tension Condition on Discharge: Good Goals: follow up with Dr. Barker and get referral to see Dr. Lawler treat epigastric pain and headache, see below get rest, stay well hydrated, well nourished Activity: Resume your previous activity Driving/Machine Use: Resume 1 day after discharge Weightbearing: Full weightbearing Non-emergency contact: Primary Care Provider Call non-emergency contact if: you have any medication questions, your symptoms worsen and you have a fever Follow-up/Referrals: Mayo Barker MD [Primary Care Provider] - (next week, call for appt) Diet: Regular Diet Comment: avoid spicy foods, caffeine, peppermint Addtl Attending Provider Instructions: Medications: - ISOSORBIDE MONONITRATE: blood pressure medication, long acting nitroglycerine, working well to lower blood pressure - NITRO: 0.4mg sublingual, use as needed for epigastric pain, see below Epigastric pain no evidence at all of a heart attack, normal EKG and troponin was negative x 3 blood draws no evidence of pancreatitis, normal liver enzymes given your history of hiatal hernia and Smith's esophagus, you likely had a severe case of reflux also, since the nitroglycerine helped, you may have had esophageal spasms, nitroglycerin can help relax the esophagus I recommend that you avoid any foods that can trigger worsening reflux continue on protonix twice a day, pepcid, you can take either Tums or Maalox for persistent symptoms for intense pain try the Nitro under the tongue recommend that you follow up with Dr. Barker in a week, request referral to Dr. Lawler, likely due for EGD in near future Hypertension: blood pressure quite elevated on admission started on Imdur in addition to other medications which helped BP is better today, safe for discharge follow up with Dr. Barker next week Headache: okay to use Advil but you need to take WITH FOOD also, use Tylenol as needed as we discussed, the Nitro could cause a headache as could the Imdur follow up with Dr. Barker if the headaches become more frequent Pending Studies at Discharge: No Stand-Alone Forms: [facility] Phone Warrior, Smoking Cessation Medications and DC Order Prescriptions: New isosorbide mononitrate 30 mg Tablet Extended Release 24 Hr 30 mg PO QAM 30 Days Qty: 30 RF: 3 nitroglycerin 0.4 mg tablet, sublingual 0.4 mg sublingual DAILY PRN (Reason: epigastric pain) Qty: 30 RF: 0 Continued pantoprazole 40 mg tablet,delayed release (DR/EC) 40 mg PO BID Qty: 180 RF: 3 lisinopril 40 mg tablet 40 mg PO QAM Qty: 90 RF: 3 baclofen 10 mg tablet See Rx Instructions .ROUTE .COMPLEX Qty: 180 RF: 3 cholecalciferol (vitamin D3) 2,000 unit capsule 4,000 units PO QAM RF: 0 naloxone 4 mg/actuation spray,non-aerosol 1 sprays INTNAS Q2M PRN (Reason: opioid overdose) RF: 0 pravastatin 20 mg tablet 20 mg PO HS Qty: 30 RF: 5 Hold Instructions: patient not taking omega-3 fatty acids 500 mg capsule 500 mg PO QDL RF: 0 biotin 2,500 mcg capsule 5 mg PO QDL RF: 0 diclofenac sodium [Voltaren] 1 % gel 4 gm TOP QID PRN (Reason: pain) RF: 0 aspirin 81 mg Tablet,Delayed Release (Dr/Ec) 81 mg PO QAM RF: 0 coenzyme Q10 200 mg Capsule 200 mg PO QDL RF: 0 clonazepam 0.5 mg tablet 0.25 mg PO HS RF: 0 famotidine [Pepcid] 20 mg Tablet 20 mg PO HS RF: 0 garlic 1,000 mg Capsule 5,000 mg PO QDL RF: 0 ibuprofen [Advil] 200 mg Tablet 200 mg PO Q6H PRN (Reason: Pain) RF: 0 No Action atorvastatin 10 mg tablet 10 mg PO HS Qty: 10 RF: 5 Discharge Orders: Discharge Order (Routine); Ordered 03/29/20 Ordered By: Zachariah Amaral Admission Data Admit Date/Time: 03/28/20 12:05 Attending Provider: Zachariah Amaral Admit Provider: Smith Coates Primary Care Provider: Mayo Barker Other Providers: Smith Coates ; Jose Fink Other Interventions: Discharge Summary Assessment (RN) Last Done: 03/29/20 16:06 DC Date/Time DO NOT enter until pt leaves facility: 03/29/20 16:50 Coding Level of Care Code 07736 OBS Care - Discharge Diagnoses Epigastric pain R10.13 Chest pain at rest R07.9 Esophageal spasm K22.4 GERD without esophagitis K21.9 Hypertensive urgency I16.0 Right bundle branch block I45.10 Insomnia G47.00 Hyperlipidemia E78.5 Smith's esophagus K22.70 Headache R51
== END 2020-03-29 16:50 | disposition home or self-care (01) ==
LOC: 1E 08:04 → ED 08:04 → SUATTDRO 12:05 → 1E 14:25

== ENCOUNTER 2023-01-02 08:46 | Observation (INO) ==
--- NOTE | 2023-01-02 08:59 | Emergency Department Note ---
Impression & Plan Atypical chest pain ED Provider Note NAME: NEY VALDOVINOS AGE: 77 SEX: F : 1945 ARRIVES VIA: Walk-In INFORMANT: Patient, ED PROVIDER(S): Osmin Brooks MD CHIEF COMPLAINT: Chest pain MEDICAL DECISION MAKING: Patient presents due to concern for chest pain. IV was established blood work was obtained and the patient was ordered for aspirin EKG troponin and chest x-ray. COVID swab also obtained. Patient has no active chest pain at the bedside at present. Patient has a normal white count H&H and platelet count. Kidney function is unremarkable. Patient's initial troponin is not elevated. Given that the patient has had chest pain with radiation to the neck and jaw area with increasing frequency I did speak with the on-call hospitalist service Dr. Mercado. Patient was admitted to the medicine service. Prior /Outside records reviewed: None Differential diagnosis: Cardiac ischemia, aortic dissection, pulmonary embolism, pneumothorax, pneumonia, pericarditis, myocarditis, esophageal rupture, GERD, cholecystitis, pancreatitis, musculoskeletal, as well as other pathologies. Diagnostics, as interpreted by me: ECG: Normal sinus rhythm, rate of 72 wide QRS, left axis deviation, right bundle branch block pattern, no obvious ST elevations T wave version lead III. Cardiac monitoring: An order was placed for continuous cardiac monitoring. The monitor shows a rate of 72 with sinus rhythm. Patient was placed on pulse oximetry Medical decision rules: None Imaging studies: See below HPI: Patient presents due to concern for chest tightness and achiness with associated radiation up into the neck and jaw area. Patient states that this is been intermittent ongoing for weeks but seems to be more pronounced this morning and thus presented to the emergency department. The patient did not take her morning medications. The patient does have a prior history of a valve replacement completed at [facility] with a bovine valve the patient does not take any anticoagulant medication. Patient denies any shortness of breath or leg swelling no calf pain or erythema and the patient denies any recent surgeries or hospitalizations. Patient did have recent skin biopsies completed by Dr. Longo through [facility]. The valve repair was completed in 2015. Patient did complain of some sweatiness and nausea but no vomiting. The patient states that her symptoms are occurring at rest and with activity. PAST MEDICAL HISTORY: See Below PAST SURGICAL HISTORY: See Below SOCIAL HISTORY: See Below HOME MEDICATIONS: See Below ALLERGIES: See Below VITALS: See Below PHYSICAL EXAMINATION: GENERAL: NAD, wearing a mask, non-toxic. EYE EXAM: Normal conjunctiva. PERRL, no anisocoria and EOM's grossly intact w/o pain. Head: 2 Band-Aids noted 1 to the left supraorbital area of the 1 to the left parietal area. NECK: Supple, no nuchal rigidity, no adenopathy, non-tender. No signs of me ningismus. FROM of the neck with good chin to chest and neck extension. No stridor. LUNGS: Clear to auscultation. Normal chest wall mechanics. HEART: NSR, no MRG. ABDOMEN: Abdomen soft, non-tender, normo-active bowel sounds, no masses, no rebound or guarding. BACK: No CVA TTP. SKIN: No rashes and no bruising. UPPER EXTREMITIES: Upper extremities are grossly normal. LOWER EXTREMITIES: Grossly normal, trace pretibial edema without any calf pain or erythema NEURO EXAM: A&O x3, cranial nerves II-XII grossly intact, normal speech, moves all 4 extremities. Past Med/Surg History Medical History Anxiety Arthritis BACK, HANDS, FEET Back pain Smith's esophagus Depression Diverticulitis Elevated serum globulin level Hiatal hernia History of pleurisy after aortic valve replacement Hyperlipidemia Hypertension Nonalcoholic fatty liver disease Obstructive sleep apnea has machine and does not use/CAN'T TOLERATE Osteoarthritis KNEES Palpitations no further issues > follows with Dr. Fuentes Pulmonary emboli post op complication after aortic valve replacement Sciatica HX Stomach problems UPCOMING EGD ROUTINE PER PT; HOWEVER LAST WEEK STOMACH PROBLEMS FLARED : EXPERIENCED STOMACH PAIN, OCC TIGHTNESS IN CHEST, BLOATING AND STOMACH HEAVINESS - PT INSTRUCTED TO NOTIFY DR KIMBALL'S OFFICE OF THIS INFORMATION. PT PLANS TO CALL TOMORROW (04/12). Thyroid nodule HX - TOLD ABOUT YRS AGO/MONITORED Vitamin D deficiency Surgical History H/O aortic valve replacement [facility] 04/2017 History of arthroscopy of left knee History of arthroscopy of right knee History of back surgery lumbar laminectomy History of cholecystectomy History of colonoscopy History of esophagogastroduodenoscopy (EGD) 04/05/2020, Propofol no issues. Hx of bilateral cataract extraction Family History Unknown Malignant neoplasm of stomach Cancer of heart Cardiac disorder Kidney stones Lung cancer Hypertension Mother Diabetes Deep vein thrombosis Colorectal cancer Sister Depression Osteoarthritis Brother Diabetes Stroke Father Lung disease Grandmother Osteoarthritis Grandmother No problems noted. Grandfather No problems noted. Brother Esophagus cancer Grandmother (Paternal) Diabetes Other Family history non-contributory Ovarian cancer Denies family history of Rheumatoid arthritis Sudden Prostate cancer Osteoporosis Coronary heart disease Dyslipidemia Cerebral aneurysm Alzheimer disease Bipolar disorder Clotting disorder Crohn's disease Dementia Heart disease Myocardial infarction Breast cancer Schizophrenia Congenital kidney disease Gestational diabetes COPD (chronic obstructive pulmonary disease) Pulmonary embolism Ulcerative colitis Colonic polyp Asthma Cystic kidney disease Social History Smoking Status: Never smoker Second Hand Exposure: No; Hx Alcohol Use: Yes Alcohol type: wine and hard liquor Alcohol Intake Frequency: Monthly or Less Alcohol Intake Frequency Comment: rarely Hx Substance Use: No Preferred Language: Khmer Communication Ability: Effective Visual Impairment: Limited Hearing Ability: Normal 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 Beliefs That Will Affect Care: None, Jainism Jainism Beliefs: JEHOVAS WITNESS - NO BLOOD PRODUCTS , Spiritual Spiritual Healthcare Practices: JEHOVAS WITNESS - NO BLOOD PRODUCTS and Cultural Cultural Beliefs: JEHOVAS WITNESS - NO BLOOD PRODUCTS marital status: Current Living Situation: Spouse current occupational status: retired current occupation: housewife, homemaker How many Children do You have: 2 Feels Safe at Home: Yes Childhood Exposure to Second-Hand Smoke: Yes caffeine: Yes during the past year weight has: remained stable Dental Care, Regularly: No Physical Activity Frequency: Does not Exercise Seatbelt Use: always Sunscreen Use: No Assistive Devices: Cane and Glasses Allergies Allergies Allergy/AdvReac Type Severity Reaction Status Date / Time niacin Allergy Unknown RASH Verified 12/12/22 13:28 atorvastatin AdvReac Unknown MUSCLE Verified 12/12/22 13:28 ACHES diltiazem AdvReac Unknown HEADACHE Verified 12/12/22 13:28 linaclotide [From Linzess] AdvReac Unknown Flatulence, Verified 12/12/22 13:28 BLOATED, ADBOMINAL PAIN, BRUISING rosuvastatin [From Crestor] AdvReac Unknown Muscle Pain Verified 12/12/22 13:28 Home Meds Home Medications Medication Instructions Recorded Confirmed aspirin 81 mg tablet,delayed 81 mg PO QAM 10/02/18 01/02/23 release coenzyme Q10 200 mg capsule 200 mg PO QAM 10/02/18 01/02/23 cholecalciferol (vitamin D3) 50 4,000 units PO QAM 04/29/19 01/02/23 mcg (2,000 unit) capsule cyanocobalamin (vitamin B-12) 1,000 mcg PO QAM 04/11/22 01/02/23 1,000 mcg tablet (Vitamin B-12) famotidine 20 mg tablet 20 mg PO BID 04/11/22 01/02/23 Previous Rx's Medication Instructions Recorded lisinopril 40 mg tablet 40 mg PO QAM #90 tabs 05/17/22 pravastatin 10 mg tablet 10 mg PO .COMPLEX #90 tabs 08/29/22 sucralfate 100 mg/mL oral 10 ml PO QID #420 mL 09/09/22 suspension (Carafate) omeprazole 40 mg capsule,delayed 40 mg PO BID 30 days #60 caps 10/30/22 release buspirone 10 mg tablet 10 mg PO BID #180 tabs 12/06/22 tramadol 50 mg tablet 50 mg PO DAILY #30 tabs 12/06/22 Results & Data (ED) Vital Signs Vital Signs - 24 hr 01/02/23 08:54 01/02/23 09:18 01/02/23 09:19 Temperature 36.6 C Temperature Source Temporal Artery Scan Pulse Rate 74 70 Pulse Rate [Apical] 66 Pulse Rate from SpO2 Sensor Respiratory Rate 20 16 Respiratory Effort / Characteristics Non-Labored Respiratory Depth Normal Blood Pressure 196/92 H Blood Pressure [Left Arm] 219/81 H Blood Pressure Mean 126 Blood Pressure Mean [Left Arm] 127 Pulse Oximetry 98 96 Oxygen Delivery Method Room Air Sepsis Recent Fever Within 48 Hours No Sepsis New/Unexplained Change in Mental Status N/A Sepsis Action Taken by Nursing No Action Required 01/02/23 09:19 01/02/23 09:17 01/02/23 09:30 Temperature Temperature Source Pulse Rate 65 68 Pulse Rate [Apical] Pulse Rate from SpO2 Sensor 66 66 Respiratory Rate 16 20 Respiratory Effort / Characteristics Respiratory Depth Blood Pressure Blood Pressure [Left Arm] Blood Pressure Mean Blood Pressure Mean [Left Arm] Pulse Oximetry 96 96 98 Oxygen Delivery Method Room Air Room Air Sepsis Recent Fever Within 48 Hours Sepsis New/Unexplained Change in Mental Status Sepsis Action Taken by Nursing 01/02/23 09:31 01/02/23 09:31 01/02/23 09:45 Temperature Temperature Source Pulse Rate 65 62 Pulse Rate [Apical] Pulse Rate from SpO2 Sensor 65 63 Respiratory Rate 21 16 Respiratory Effort / Characteristics Respiratory Depth Blood Pressure 190/88 H Blood Pressure [Left Arm] Blood Pressure Mean 122 Blood Pressure Mean [Left Arm] Pulse Oximetry 96 96 Oxygen Delivery Method Room Air Room Air Sepsis Recent Fever Within 48 Hours Sepsis New/Unexplained Change in Mental Status Sepsis Action Taken by Nursing 01/02/23 10:00 01/02/23 10:00 01/02/23 10:15 Temperature Temperature Source Pulse Rate 62 72 Pulse Rate [Apical] Pulse Rate from SpO2 Sensor 64 66 Respiratory Rate 17 18 Respiratory Effort / Characteristics Respiratory Depth Blood Pressure 161/82 H Blood Pressure [Left Arm] Blood Pressure Mean 108 Blood Pressure Mean [Left Arm] Pulse Oximetry 95 96 Oxygen Delivery Method Room Air Room Air Sepsis Recent Fever Within 48 Hours Sepsis New/Unexplained Change in Mental Status Sepsis Action Taken by Nursing 01/02/23 10:30 01/02/23 10:30 01/02/23 10:45 Temperature Temperature Source Pulse Rate 60 74 Pulse Rate [Apical] Pulse Rate from SpO2 Sensor 60 73 Respiratory Rate 16 16 Respiratory Effort / Characteristics Respiratory Depth Blood Pressure 176/71 H Blood Pressure [Left Arm] Blood Pressure Mean 106 Blood Pressure Mean [Left Arm] Pulse Oximetry 94 96 Oxygen Delivery Method Room Air Room Air Sepsis Recent Fever Within 48 Hours Sepsis New/Unexplained Change in Mental Status Sepsis Action Taken by Nursing 01/02/23 10:53 01/02/23 10:53 01/02/23 11:00 Temperature Temperature Source Pulse Rate 71 Pulse Rate [Apical] Pulse Rate from SpO2 Sensor 71 Respiratory Rate 21 Respiratory Effort / Characteristics Respiratory Depth Blood Pressure 173/97 H 187/94 H Blood Pressure [Left Arm] Blood Pressure Mean 122 125 Blood Pressure Mean [Left Arm] Pulse Oximetry 97 Oxygen Delivery Method Room Air Sepsis Recent Fever Within 48 Hours Sepsis New/Unexplained Change in Mental Status Sepsis Action Taken by Nursing 01/02/23 11:00 Temperature Temperature Source Pulse Rate 68 Pulse Rate [Apical] Pulse Rate from SpO2 Sensor 69 Respiratory Rate 21 Respiratory Effort / Characteristics Respiratory Depth Blood Pressure Blood Pressure [Left Arm] Blood Pressure Mean Blood Pressure Mean [Left Arm] Pulse Oximetry 96 Oxygen Delivery Method Room Air Sepsis Recent Fever Within 48 Hours Sepsis New/Unexplained Change in Mental Status Sepsis Action Taken by Detention Medications Current Medication List: was personally reviewed by me Laboratory Data Attestation: I reviewed the patient's lab results. 01/02/23 09:18 01/02/23 09:18 Lab Results 01/02/23 01/02/23 01/02/23 Range/Units 09:18 09:18 09:18 WBC 6.74 (4.8-10.8) K/ul RBC 4.49 (4.20-5.40) M/uL Hgb 13.1 (12.0-16.0) g/dl POC Hgb (12.0-16.0) g/dl Hct 40.6 (37.0-47.0) % POC Hct (37-47) % MCV 90.4 (80.0-100.0) fL MCH 29.2 (25.0-34.0) pg MCHC 32.3 (32.0-36.0) g/dL RDW Std Deviation 46.7 H (36.4-46.3) fL RDW Coeff of Elsa 14.1 (11.5-14.5) % Plt Count 268 (130-400) K/uL MPV 9.8 (9.4-12.4) fL Immature Gran % (Auto) 0.3 % Neut % (Auto) 60.8 % Lymph % (Auto) 24.2 % Perkins % (Auto) 8.2 % Eos % (Auto) 5.2 % Baso % (Auto) 1.3 % Neut # (Auto) 4.10 (1.40-6.50) K/uL Lymph # (Auto) 1.63 (1.2-3.4) K/uL Perkins # (Auto) 0.55 (0.11-0.59) K/uL Eos # (Auto) 0.35 (0-0.50) K/uL Baso # (Auto) 0.09 (0-0.2) K/uL Immature Gran # (Auto) 0.02 (0.01-0.20) K/uL PT 10.2 (9.0-12.0) Seconds INR 1.0 (0.9-1.1) APTT 23.4 (21.0-31.0) Seconds PTT Ratio 0.9 POC Sodium (135-144) mmol/L Sodium 140 (136-145) mmol/L POC Potassium (3.3-5.0) mmol/L Potassium 3.9 (3.5-5.1) mmol/L POC Chloride (101-112) mmol/L Chloride 108 H (98-107) mmol/L Carbon Dioxide 26 (21-32) mmol/L POC Total CO2 (24-31) mmol/L Anion Gap 6 (3-11) POC Anion Gap (16-25) mmol/L POC BUN (7-18) mg/dl BUN 23 (6-23) mg/dl Creatinine 0.98 (0.6-1.2) mg/dl POC Creatinine (0.6-1.3) mg/dl Est Cr Clr Drug Dosing 52.9 ml/min Est GFR ( Amer) 64.9 ml/min Est GFR (Non-Af Amer) 56.0 ml/min BUN/Creatinine Ratio 23.5 H (10-20) Glucose 100 H (70-99(Fasting)) mg/dl POC Glucose (other) (70-99) mg/dl Calcium 9.6 (8.5-10.1) mg/dl POC Ioniz Calcium Iris (1.12-1.32) mmol/l Total Bilirubin 0.5 (0.2-1.0) mg/dl AST 15 (13-39) U/L ALT 12 (7-52) U/L Alkaline Phosphatase 83 (34-104) U/L Troponin I High Sens 6.0 (0-14) pg/ml Total Protein 7.9 (6.0-8.3) gm/dl Albumin 4.3 (3.4-5.0) gm/dl Globulin 3.6 (2.5-4.0) gm/dl Albumin/Globulin Ratio 1.2 (0.9-2) Lipase 35 (11-82) U/L SARS-CoV-2, RNA, NAAT (NEGATIVE) 01/02/23 01/02/23 Range/Units 09:19 09:23 WBC (4.8-10.8) K/ul RBC (4.20-5.40) M/uL Hgb (12.0-16.0) g/dl POC Hgb 13.6 (12.0-16.0) g/dl Hct (37.0-47.0) % POC Hct 40 (37-47) % MCV (80.0-100.0) fL MCH (25.0-34.0) pg MCHC (32.0-36.0) g/dL RDW Std Deviation (36.4-46.3) fL RDW Coeff of Elsa (11.5-14.5) % Plt Count (130-400) K/uL MPV (9.4-12.4) fL Immature Gran % (Auto) % Neut % (Auto) % Lymph % (Auto) % Perkins % (Auto) % Eos % (Auto) % Baso % (Auto) % Neut # (Auto) (1.40-6.50) K/uL Lymph # (Auto) (1.2-3.4) K/uL Perkins # (Auto) (0.11-0.59) K/uL Eos # (Auto) (0-0.50) K/uL Baso # (Auto) (0-0.2) K/uL Immature Gran # (Auto) (0.01-0.20) K/uL PT (9.0-12.0) Seconds INR (0.9-1.1) APTT (21.0-31.0) Seconds PTT Ratio POC Sodium 142 (135-144) mmol/L Sodium (136-145) mmol/L POC Potassium 3.9 (3.3-5.0) mmol/L Potassium (3.5-5.1) mmol/L POC Chloride 107 (101-112) mmol/L Chloride (98-107) mmol/L Carbon Dioxide (21-32) mmol/L POC Total CO2 23 L (24-31) mmol/L Anion Gap (3-11) POC Anion Gap 18.0 (16-25) mmol/L POC BUN 22 H (7-18) mg/dl BUN (6-23) mg/dl Creatinine (0.6-1.2) mg/dl POC Creatinine 1.0 (0.6-1.3) mg/dl Est Cr Clr Drug Dosing ml/min Est GFR ( Amer) ml/min Est GFR (Non-Af Amer) ml/min BUN/Creatinine Ratio (10-20) Glucose (70-99(Fasting)) mg/dl POC Glucose (other) 99 (70-99) mg/dl Calcium (8.5-10.1) mg/dl POC Ioniz Calcium Iris 1.20 (1.12-1.32) mmol/l Total Bilirubin (0.2-1.0) mg/dl AST (13-39) U/L ALT (7-52) U/L Alkaline Phosphatase (34-104) U/L Troponin I High Sens (0-14) pg/ml Total Protein (6.0-8.3) gm/dl Albumin (3.4-5.0) gm/dl Globulin (2.5-4.0) gm/dl Albumin/Globulin Ratio (0.9-2) Lipase (11-82) U/L SARS-CoV-2, RNA, NAAT NEGATIVE (NEGATIVE) Administered Medications Lisinopril (Lisinopril 40 Mg Tab) 40 mg PO QAM [facility] Stop: 02/01/23 10:29 Last Admin: 01/02/23 11:16 Dose: 40 mg Documented By: SANGEETHA Nitroglycerin (Nitroglycerin Sl 0.4 Mg/Tab Tab) 0.4 mg SL UD PRN PRN Reason: Chest Pain Stop: 02/01/23 09:05 Last Admin: 01/02/23 10:45 Dose: 0.4 mg Documented By: LUIS Discontinued Medications Al Hydrox/Mg Hydrox/Simethicone (Gi Cocktail Ed Use) 1 dose PO NOW ONE Stop: 01/02/23 12:01 Last Admin: 01/02/23 12:19 Dose: 1 dose Documented By: SANGEETHA Amlodipine Besylate (Amlodipine Besylate 5 Mg Tab) 5 mg PO NOW ONE Stop: 01/02/23 12:57 Last Admin: 01/02/23 13:15 Dose: 5 mg Documented By: SANGEETHA Aspirin (Aspirin Chew 324 Mg) 324 mg PO NOW STA Stop: 01/02/23 09:07 Last Admin: 01/02/23 09:12 Dose: 324 mg Documented By: LUIS Famotidine (Famotidine 20mg/5ml Iv Push) Confirm Administered Dose 20 mg IV .STK-MED ONE Stop: 01/02/23 11:11 Last Admin: 01/02/23 11:15 Dose: 20 mg Documented By: SANGEETHA Famotidine 20 mg/ Syringe 5 mls @ 2.5 mls/min IV ONE ONE Stop: 01/02/23 11:16 Last Admin: 01/02/23 11:16 Dose: Not Given Documented By: SANGEETHA Pantoprazole Sodium 40 mg/ (Syringe) 10 mls @ 5 mls/min IV NOW ONE Stop: 01/02/23 12:01 Last Admin: 01/02/23 12:21 Dose: 5 mls/min Documented By: SANGEETHA Labetalol HCl (Labetalol Hcl Iv 5 Mg/Ml 20ml) 5 mg IV NOW STA Stop: 01/02/23 10:30 Last Admin: 01/02/23 10:42 Dose: Not Given Documented By: LUIS Nitroglycerin (Nitroglycerin 2% Ointment 30gm Tube) Confirm Administered Dose 18 inch EXT .STK-MED ONE Stop: 01/02/23 10:37 Last Admin: 01/02/23 10:42 Dose: 0.5 inch Documented By: LUIS Sucralfate (Sucralfate 1 Gm/10 Ml Udc) 1 gm PO ONE ONE Stop: 01/02/23 11:55 Last Admin: 01/02/23 12:18 Dose: 1 gm Documented By: SANGEETHA Imaging Data Radiologist's Impression: Chest X-Ray 01/02/23 09:06 XR chest 1V portable CLINICAL HISTORY: Chest pain, nonspecific COMPARISON STUDY: Chest CT September 07, 2019 FINDINGS: There is no pneumothorax or pleural effusion. There is no evidence for pulmonary edema. Cardiomegaly is unchanged. There is a prosthetic aortic valve. Elevation of the right hemidiaphragm is unchanged. There has been no significant change in appearance of the chest. IMPRESSION: No acute cardiopulmonary findings. ACT 112: Negative or not required by law. Electronically signed by: Rikki Herrera M.D. 01/02/2023 10:18 AM Discharge Plan Visit Data Chief Complaint: Chest Pain Stated Complaint: CHEST PAIN, DIZZINESS, SOB ED Provider: Osmin Brooks Discharge Problem: Atypical chest pain Patient Disposition: Admitted As Inpatient Discharge Instructions Interventions: ED Discharge Assessment Last Done: 01/02/23 14:50
[2023-01-02] MEDS ORDERED: ASPIRIN CHEW 324 MG PO STA (09:06)
[2023-01-02] MEDS ORDERED: NITROGLYCERIN SL 0.4 MG/TAB TAB SL PRN (09:06)
[2023-01-02 09:47] LABS: Albumin Globulin Ratio 1.2 (0.9-2); Albumin Level 4.3 gm/dl (3.4-5.0); BUN Creatinine Ratio 23.5 (10-20); Bilirubin,Total 0.5 mg/dl (0.2-1.0); Calcium 9.6 mg/dl (8.5-10.1); Creatinine Clr Calc Pharmacy 52.9 ml/min; Est GFR (African American) 64.9 ml/min; Globulin 3.6 gm/dl (2.5-4.0); Potassium 3.9 mmol/L (3.5-5.1); Total Protein 7.9 gm/dl (6.0-8.3)
[2023-01-02 09:56] LABS: Basophils # (auto) 0.09 K/uL (0-0.2); Basophils % (auto) 1.3 %; Eosinophils # (auto) 0.35 K/uL (0-0.50); Eosinophils % (auto) 5.2 %; Hematocrit (blood only) 40.6 % (37.0-47.0); Hemoglobin 13.1 g/dl (12.0-16.0); Immature Granulocytes # (auto) 0.02 K/uL (0.01-0.20); Immature Granulocytes % (auto) 0.3 %; Lymphocytes # (auto) 1.63 K/uL (1.2-3.4); Lymphocytes % (auto) 24.2 %; Mean Corpuscular Hemoglobin 29.2 pg (25.0-34.0); Mean Corpuscular Hgb Conc 32.3 g/dL (32.0-36.0); Mean Corpuscular Volume 90.4 fL (80.0-100.0); Mean Platelet Volume 9.8 fL (9.4-12.4); Monocytes # (auto) 0.55 K/uL (0.11-0.59); Monocytes % (auto) 8.2 %; Neutrophils % (auto) 60.8 %; Platelet Count 268 K/uL (130-400); RDW Coefficient of Variation 14.1 % (11.5-14.5); RDW Standard Deviation 46.7 fL (36.4-46.3); Red Blood Count 4.49 M/uL (4.20-5.40); White Blood Count 6.74 K/ul (4.8-10.8)
[2023-01-02 10:01] LABS: Partial Thromboplastin Ratio 0.9; Partial Thromboplastin Time 23.4 Seconds (21.0-31.0); Prothrombin Time 10.2 Seconds (9.0-12.0)
--- NOTE | 2023-01-02 10:20 | XRay Report ---
XR chest 1V portable CLINICAL HISTORY: Chest pain, nonspecific COMPARISON STUDY: Chest CT September 07, 2019 FINDINGS: There is no pneumothorax or pleural effusion. There is no evidence for pulmonary edema. Car diomegaly is unchanged. There is a prosthetic aortic valve. Elevation of the right hemidiaphragm is u nchanged. There has been no significant change in appearance of the chest. IMPRESSION: No acute cardiopulmonary findings. ACT 112: Negative or not required by law. Electronically signed by: Rikki Herrera M.D. 01/02/2023 10:18 AM
--- NOTE | 2023-01-02 10:28 | History & Physical Report ---
Date of Service January 02, 2023 Assessment & Plan (1) Chest pain: Plan: Lidya De is a 77-year-old female who presents with chest pain radiating to the neck and jaw and hypertension greater than systolic 230. She has a past medical history of bovine aortic valve replacement and hx of GERD/Baretts esophagus on PPI BID + H2 + carafate tx. Chest pain, DDx includes GERD and CAD - Worsening x1 week, and much worse since 4-5am. Intermittent chest tightness with radiation to neck overnight. has been constant since ~4am. Intermittent sx at rest and w/ exertion last week, has not noticed a difference with exertion, is worse after laying @ night. No wheezing. - Hx of GERD & Barretts. PPI + H2 ordered, carafate pending Received full dose aspirin and nitro on admission, minimal improvement - HEART moderate (EKG wnl, Age +2, HTN, BMI>30, initial trop normal, preDM) - No leukocytosis - Hemoglobin 13.1 - Coag panel normal - Baseline creatinine is less than 1, admitting creatinine 0.98 - High-sensitivity troponin is 6.0 on admission, 2hr repeat pending - Lipase normal - A1C 5.9% 08/2022, admit BSG 100. - CXR: No acute findings. Unchanged right hemidiaphragm elevation, cardiomegaly, prosthetic aortic valve. No evidence of pulmonary edema or fluid overload. No evidence of pneumothorax. - Admitting EKG: Normal sinus rhythm, right bundle branch block no significant change from prior. No territorial ST segment changes.? LVH. QTc 468. - 11/15/2020 echo: Normal LV size, mild concentric LVH. LVEF 60-65% with no regional wall motion abnormalities, grossly normal RV function but not well visualized. Well-seated bioprosthetic graft. Grade 1 diastolic dysfunction. - Mild nonobstructive CAD: Cardiac catheterization 2016: 25% LAD, 20 to 30% ostial diagonal diagonal disease History of GERD - EGD 04/2022: Long segment leach's in lower 3rd, no duodenal changes, no ulceration Continue PPI twice daily, Pepcid DDx for chest pain includes GERD - Resume carafate QID PRN Hx AVR - Post bioprosthetic valve 04/2017 Functioning normally on prior echo, repeat echo pending with chest pain eval as noted History of postoperative PE Postcardiac surgery, provoked, is not on indefinite anticoagulation. Hypertension Continue lisinopril 40 mg daily Nonalcoholic fatty liver disease Noted, no transaminitis or elevated bilirubin, alk phos normal on admission No acute management at this time Anxiety Continue BuSpar Intolerant to SSRIs No acute change in management at this time Spouse does have some dementia and patient is a caregiver constant followed for situational anxiety and caregiver burden Chronic knee pain Adequately controlled at presentation Home tramadol 50 mg nightly as needed to help with pain/sleep continued DVT prophylaxis: Heparin CODE STATUS: Full Dispo: Med Tele Diet: NPO pending initial cardiac eval, then HH (2) GERD (gastroesophageal reflux disease): (3) Hypertension: (4) Hyperlipidemia: (5) Carotid artery plaque: (6) Statin myopathy: (7) Prediabetes: (8) Obstructive sleep apnea: (9) Nonalcoholic fatty liver disease: (10) Pulmonary emboli: History of Present Illness Primary Care Provider: DO Ramiro Castellanoschela De is a 77-year-old female who presents with chest pain radiating to the neck and jaw and hypertension greater than systolic 230. She has a past medical history of bovine aortic valve replacement and hx of GERD/Baretts esophagus on PPI BID + H2 + carafate tx. Sees Dr. Fuentes post AVR. Intermittent pain in chest, neck, jaw and chest feeling tight with SoB. Happened intermittently rarely, talked about it in Nov. Last night came back and was worse, happened at 5am and 6am. Pain has been increasing in severity and intensity over the last week 02/10 at assessment, improving from -06/12. Was last pain free going to bed last night and yesterday throughout the day. Tightness quality, radiates to neck HTN on lisinopril, did not take this morning Hx GERD with low chest burning improves with antiacid medicines and sucralfate as needed. GERD pain generally does not spread to neck, and i sless intense. Hx of migraines related to hormones, followd with DR. Hobbs and took hormones for a while which resolved them and stopped after menopause with no further headaches. Intolerant to atorvastatin/resuvastatin 2/2 myalgia, is tolerating pravastatin 10 daily with 20mg MWF No tobacco use. No early FHX [place]. No hx DM. No syncope/presyncope No fever/chills, no recent illness. No abdominal pain, no vomiting/diarrhea Eating/drinking normally History of provoked PE after her cardiac surgery, was treated with anticoagulation per patient with Lovenox and then this was discontinued, is not on anticoagulation currently. Has not had recurrent blood clots since. Denies recent leg swelling/calf pain. Does have chronic knee pain which has not changed. Patient denies history of CAD, per record review has had a history of nonobstructive CAD on prior cath 2017 Medical History: Reviewed Medications: Reviewed Surgical History: Reviewed Allergies: Reviewed Social History: No hx tobacco use. No alcohol. Code Status:Full Code Allergies Allergy/AdvReac Type Severity Reaction Status Date / Time niacin Allergy Unknown RASH Verified 12/12/22 13:28 atorvastatin AdvReac Unknown MUSCLE Verified 12/12/22 13:28 ACHES diltiazem AdvReac Unknown HEADACHE Verified 12/12/22 13:28 linaclotide [From Linzess] AdvReac Unknown Flatulence, Verified 12/12/22 13:28 BLOATED, ADBOMINAL PAIN, BRUISING rosuvastatin [From Crestor] AdvReac Unknown Muscle Pain Verified 12/12/22 13:28 Home Medications Medication Instructions Recorded Confirmed Type aspirin 81 mg tablet,delayed 81 mg PO QAM 10/02/18 01/02/23 History release coenzyme Q10 200 mg capsule 200 mg PO QAM 10/02/18 01/02/23 History cholecalciferol (vitamin D3) 50 4,000 units PO QAM 04/29/19 01/02/23 History mcg (2,000 unit) capsule cyanocobalamin (vitamin B-12) 1,000 mcg PO QAM 04/11/22 01/02/23 History 1,000 mcg tablet (Vitamin B-12) famotidine 20 mg tablet 20 mg PO BID 04/11/22 01/02/23 History lisinopril 40 mg tablet 40 mg PO QAM #90 tabs 05/17/22 01/02/23 Rx pravastatin 10 mg tablet 10 mg PO .COMPLEX #90 tabs 08/29/22 01/02/23 Rx sucralfate 100 mg/mL oral 10 ml PO QID #420 mL 09/09/22 01/02/23 Rx suspension (Carafate) omeprazole 40 mg capsule,delayed 40 mg PO BID 30 days #60 caps 10/30/22 01/02/23 Rx release buspirone 10 mg tablet 10 mg PO BID #180 tabs 12/06/22 01/02/23 Rx tramadol 50 mg tablet 50 mg PO DAILY #30 tabs 12/06/22 01/02/23 Rx Past Med/Surg History Medical History (Updated 01/02/23 @ 11:09 by Frederick Mercado MD) Anxiety Arthritis BACK, HANDS, FEET Back pain Leach's esophagus Depression Diverticulitis Elevated serum globulin level Hiatal hernia History of pleurisy after aortic valve replacement Hyperlipidemia Hypertension Nonalcoholic fatty liver disease Obstructive sleep apnea has machine and does not use/CAN'T TOLERATE Osteoarthritis KNEES Palpitations no further issues > follows with Dr. Fuentes Pulmonary emboli post op complication after aortic valve replacement Sciatica HX Stomach problems UPCOMING EGD ROUTINE PER PT; HOWEVER LAST WEEK STOMACH PROBLEMS FLARED : EXPERIENCED STOMACH PAIN, OCC TIGHTNESS IN CHEST, BLOATING AND STOMACH HEAVINESS - PT INSTRUCTED TO NOTIFY DR KIMBALL'S OFFICE OF THIS INFORMATION. PT PLANS TO CALL TOMORROW (04/12). Thyroid nodule HX - TOLD ABOUT YRS AGO/MONITORED Vitamin D deficiency Surgical History H/O aortic valve replacement [facility] 04/2017 History of arthroscopy of left knee History of arthroscopy of right knee History of back surgery lumbar laminectomy History of cholecystectomy History of colonoscopy History of esophagogastroduodenoscopy (EGD) 04/05/2020, Propofol no issues. Hx of bilateral cataract extraction Family History Unknown Malignant neoplasm of stomach Cancer of heart Cardiac disorder Kidney stones Lung cancer Hypertension Mother Diabetes Deep vein thrombosis Colorectal cancer Sister Depression Osteoarthritis Brother Diabetes Stroke Father Lung disease Grandmother Osteoarthritis Grandmother No problems noted. Grandfather No problems noted. Brother Esophagus cancer Grandmother (Paternal) Diabetes Other Family history non-contributory Ovarian cancer Denies family history of Rheumatoid arthritis Sudden Prostate cancer Osteoporosis Coronary heart disease Dyslipidemia Cerebral aneurysm Alzheimer disease Bipolar disorder Clotting disorder Crohn's disease Dementia Heart disease Myocardial infarction Breast cancer Schizophrenia Congenital kidney disease Gestational diabetes COPD (chronic obstructive pulmonary disease) Pulmonary embolism Ulcerative colitis Colonic polyp Asthma Cystic kidney disease Social History Smoking Status: Never smoker Second Hand Exposure: No; Hx Alcohol Use: Yes Alcohol type: wine and hard liquor Alcohol Intake Frequency: Monthly or Less Alcohol Intake Frequency Comment: rarely Hx Substance Use: No Preferred Language: Czech Communication Ability: Effective Visual Impairment: Limited Hearing Ability: Normal Psychiatric Social Worker Supervisor Required: No Beliefs That Will Affect Care: None, Islam Islam Beliefs: JEHOVAS WITNESS - NO BLOOD PRODUCTS , Spiritual Spiritual Healthcare Practices: JEHOVAS WITNESS - NO BLOOD PRODUCTS and Cultural Cultural Beliefs: JEHOVAS WITNESS - NO BLOOD PRODUCTS marital status: Current Living Situation: Spouse current occupational status: retired current occupation: housewife, homemaker How many Children do You have: 2 Feels Safe at Home: Yes Childhood Exposure to Second-Hand Smoke: Yes caffeine: Yes during the past year weight has: remained stable Dental Care, Regularly: No Physical Activity Frequency: Does not Exercise Seatbelt Use: always Sunscreen Use: No Assistive Devices: Cane and Glasses Review of Systems Review of Systems: All systems reviewed & are unremarkable except as noted in Subjective Physical Exam Physical Exam: General: A&Ox3. NAD. Cooperative. HEENT: Atraumatic, normocephalic.Vision/hearing grossly intact Pulm: CTAB A&P. -wheezes, -rales, -rhonchi. Symmetrical chest rise. No increased work of breathing. No respiratory distress. Cardiac: RRR, Soft SM. Radial pulses intact and symmetrical. Abdominal: Nontender, nondistended, soft. BS present. Extremities: Warm, dry. No edema. Sensation in hands and feet intact, data support analyst strength and ankle dorsiflexion/plantarflexion intact bilaterally Results & Data Results & Data ([facility]) Vital Signs (Past 12 Hours) Vital Signs Temp Pulse Pulse Resp BP BP Pulse Ox 01/02/23 09:19 96 01/02/23 09:19 66 16 219/81 H 96 01/02/23 09:18 70 01/02/23 08:54 36.6 C 74 20 196/92 H 98 O2 Del Method 01/02/23 09:19 01/02/23 09:19 01/02/23 09:18 01/02/23 08:54 Room Air PG Care Time/CCT Total # of Minutes Spent Total Time Spent with Patient: Total time spent is greater than 50% in coordination of care (as documented) at patient's floor/unit and/or counseling patient: Coding Level of Care Code 63487 INT INP/OBS CARE 255MIN Diagnoses Chest pain R07.9 GERD (gastroesophageal reflux disease) K21.9 Hypertension I10 Hyperlipidemia E78.5 Carotid artery plaque I65.29 Statin myopathy G72.0; T46.6X5A Prediabetes R73.03 Obstructive sleep apnea G47.33 Nonalcoholic fatty liver disease K76.0 Pulmonary emboli I26.99
[2023-01-02] MEDS ORDERED: LABETALOL HCL IV 5 MG/ML 20ML IV STA (10:29)
[2023-01-02] MEDS ORDERED: lisinopril 40 MG TAB PO SCH (10:30)
[2023-01-02] MEDS ORDERED: NITROGLYCERIN 2% OINTMENT 30GM TUBE EXT ONE (10:36)
[2023-01-02 11:05] LABS: iSTAT Hemoglobin 13.6 g/dl (12.0-16.0); iSTAT Ionized Calcium 1.2 mmol/l (1.12-1.32); iSTAT Potassium 3.9 mmol/L (3.3-5.0)
[2023-01-02] MEDS ORDERED: FAMOTIDINE 20MG/5ML IV PUSH IV ONE (11:10)
[2023-01-02] MEDS ORDERED: FAMOTIDINE 20 MG in SYRINGE 3 ML IV ONE (11:15)
[2023-01-02] MEDS ORDERED: ALUMINUM/MAGNESIUM SUSP 18 ML, LIDOCAINE VISCOUS 2% SOLN 6 ML, BARCODE IDENTIFIER 1 EACH PO ONE (11:54)
[2023-01-02] MEDS ORDERED: SUCRALFATE 1 GM/10 ML UDC PO ONE (11:54)
[2023-01-02] MEDS ORDERED: GI COCKTAIL ED USE PO ONE (12:00)
[2023-01-02] MEDS ORDERED: PANTOprazole 40 MG in SYRINGE 0 ML IV ONE (12:00)
[2023-01-02] MEDS ORDERED: amLODIPine BESYLATE 5 MG TAB PO ONE (12:56)
[2023-01-02] MEDS ORDERED: ACETAMINOPHEN 325 MG TAB PO PRN (14:46)
[2023-01-02] MEDS ORDERED: MoRPHine SULFATE 2 MG/ML CARP IV PRN (14:46)
[2023-01-02] MEDS ORDERED: SUCRALFATE 1 GM/10 ML UDC PO PRN (14:46)
[2023-01-02] MEDS ORDERED: HEPARIN SOD 5,000 UNIT/0.5 ML VIAL SQ SCH (15:30)
--- NOTE | 2023-01-02 15:31 | Discharge Summary ---
Date of Service January 02, 2023 Admission HPI Per Admitting Provider Lidya De is a 77-year-old female who presents with chest pain radiating to the neck and jaw and hypertension greater than systolic 230. She has a past medical history of bovine aortic valve replacement and hx of GERD/Baretts esophagus on PPI BID + H2 + carafate tx. Sees Dr. Fuentes post AVR. Intermittent pain in chest, neck, jaw and chest feeling tight with SoB. Happened intermittently rarely, talked about it in Nov. Last night came back and was worse, happened at 5am and 6am. Pain has been increasing in severity and intensity over the last week 02/10 at assessment, improving from -06/12. Was last pain free going to bed last night and yesterday throughout the day. Tightness quality, radiates to neck HTN on lisinopril, did not take this morning Hx GERD with low chest burning improves with antiacid medicines and sucralfate as needed. GERD pain generally does not spread to neck, and i sless intense. Hx of migraines related to hormones, followd with DR. Hobbs and took hormones for a while which resolved them and stopped after menopause with no further headaches. Intolerant to atorvastatin/resuvastatin 2/2 myalgia, is tolerating pravastatin 10 daily with 20mg MWF No tobacco use. No early FHX [place]. No hx DM. No syncope/presyncope No fever/chills, no recent illness. No abdominal pain, no vomiting/diarrhea Eating/drinking normally History of provoked PE after her cardiac surgery, was treated with ant icoagulation per patient with Lovenox and then this was discontinued, is not on anticoagulation currently. Has not had recurrent blood clots since. Denies recent leg swelling/calf pain. Does have chronic knee pain which has not changed. Patient denies history of CAD, per record review has had a history of nonobstructive CAD on prior cath 2017 Medical History: Reviewed Medications: Reviewed Surgical History: Reviewed Allergies: Reviewed Social History: No hx tobacco use. No alcohol. Code Status:Full Code Principal Diagnosis GERD Discharge Exam General: A&Ox3. NAD. Cooperative. HEENT: Atraumatic, normocephalic. Pulm: CTAB A&P. -wheezes, -rales, -rhonchi. Symmetrical chest rise. No increased work of breathing. No respiratory distress. Cardiac: RRR, -mrg. Radial pulses intact and symmetrical.No JVD. Abdominal: Nontender, nondistended, soft. BS present. Discharge Data Allergies Allergy/AdvReac Type Severity Reaction Status Date / Time niacin Allergy Unknown RASH Verified 12/12/22 13:28 atorvastatin AdvReac Unknown MUSCLE Verified 12/12/22 13:28 ACHES diltiazem AdvReac Unknown HEADACHE Verified 12/12/22 13:28 linaclotide [From Linzess] AdvReac Unknown Flatulence, Verified 12/12/22 13:28 BLOATED, ADBOMINAL PAIN, BRUISING rosuvastatin [From Crestor] AdvReac Unknown Muscle Pain Verified 12/12/22 13:28 Consultations 01/02/23 10:23 ED Decision to Admit Stat Hospital Course (1) Chest pain: Lidya De is a 77-year-old female who presents with chest pain radiating to the neck and jaw and hypertension greater than systolic 230. She has a past medical history of bovine aortic valve replacement and hx of GERD/Baretts esophagus on PPI BID + H2 + carafate tx. Patient is seen for cardiac eval. 2-hour troponin high-sensitivity is normal. Highly unlikely to represent cardiac ischemia given more than 6 hours of symptoms and 2 negative high-sensitivity troponins. Patient did somewhat improve following Pepcid/PPI. Patient given GI cocktail. Following GI cocktail patient has had complete resolution of her pain and symptoms including those radiating to her neck. Feels at baseline. Likely GI. She does not have a history of melena/bleeding. With history of Leach's suspect acute on chronic GERD as etiology of her pain. We will continue PPI/H2 therapy and Carafate. Patient is scheduled for GI follow-up this month, we will continue to address at that appointment. Blood pressure has remained systolic [id number] s despite taking home lisinopril dose in ER several hours ago. Add amlodipine 5 mg x 1, patient will check pressures at home and will hold if pressures decreased less than 120. Continue this for now.Patient had good blood pressure response to this during afternoon monitoring Given complete resolution of symptoms, likely GI origin, no signs of ongoing bleeding, risk/benefits of continued observation versus discharge home were discussed with patient. Patient is a primary caregiver for her , and greatly prefers discharged home with return precautions rather than continued observation. We will follow blood pressure after amlodipine, and anticipate discharge home this afternoon with follow-up to PCP and GI. Strict return precautions including bleeding, lightheadedness, dizziness, worsening chest pain, presyncope discussed Chest pain, DDx includes GERD and CAD - Worsening x1 week, and much worse since 4-5am. Intermittent chest tightness with radiation to neck overnight. has been constant since ~4am. Intermittent sx at rest and w/ exertion last week, has not noticed a difference with exertion, is worse after laying @ night. No wheezing. - Hx of GERD & Barretts. PPI + H2 ordered, carafate pending Received full dose aspirin and nitro on admission, minimal improvement - HEART moderate (EKG wnl, Age +2, HTN, BMI>30, initial trop normal, preDM) - No leukocytosis - Hemoglobin 13.1 - Coag panel normal - Baseline creatinine is less than 1, admitting creatinine 0.98 - High-sensitivity troponin is 6.0 on admission, 2hr repeat pending - Lipase normal - A1C 5.9% 08/2022, admit BSG 100. - CXR: No acute findings. Unchanged right hemidiaphragm elevation, cardiomegaly, prosthetic aortic valve. No evidence of pulmonary edema or fluid overload. No evidence of pneumothorax. - Admitting EKG: Normal sinus rhythm, right bundle branch block no significant change from prior. No territorial ST segment changes.? LVH. QTc 468. - 11/15/2020 echo: Normal LV size, mild concentric LVH. LVEF 60-65% with no regional wall motion abnormalities, grossly normal RV function but not well visualized. Well-seated bioprosthetic graft. Grade 1 diastolic dysfunction. - Mild nonobstructive CAD: Cardiac catheterization 2016: 25% LAD, 20 to 30% ostial diagonal diagonal disease History of GERD - EGD 04/2022: Long segment leach's in lower 3rd, no duodenal changes, no ulceration Continue PPI twice daily, Pepcid DDx for chest pain includes GERD - Resume carafate QID PRN Hx AVR - Post bioprosthetic valve 04/2017 Functioning normally on prior echo, repeat echo pending with chest pain eval as noted History of postoperative PE Postcardiac surgery, provoked, is not on indefinite anticoagulation. Hypertension Continue lisinopril 40 mg daily Nonalcoholic fatty liver disease Noted, no transaminitis or elevated bilirubin, alk phos normal on admission No acute management at this time Anxiety Continue BuSpar Intolerant to SSRIs No acute change in management at this time Spouse does have some dementia and patient is a caregiver constant followed for situational anxiety and caregiver burden Chronic knee pain Adequately controlled at presentation Home tramadol 50 mg nightly as needed to help with pain/sleep continued (2) GERD (gastroesophageal reflux disease): (3) Hypertension: (4) Hyperlipidemia: (5) Carotid artery plaque: (6) Statin myopathy: (7) Prediabetes: (8) Obstructive sleep apnea: (9) Nonalcoholic fatty liver disease: (10) Pulmonary emboli: Total Time Total Time Spent Total Time Spent (In Minutes): . Recommend routine follow total time spent day of discharge including documentation, direct patient care, and review of labs and images approximately 90 minutes Discharge Plan Discharge Items Patient Disposition: Home - Self-Care Reason For Visit: CHEST PAIN Discharge Diagnosis: GERD Non-emergency contact: Primary Care Provider Call non-emergency contact if: you have any medication questions and your symptoms worsen Follow-up/Referrals: Manish Self DO [Primary Care Provider] - Diet: Heart Healthy Addtl Attending Provider Instructions: You are seen in the hospital for chest pain. Your chest pain was concerning for heart related chest pain, and you had a cardiac evaluation. 2 high-sensitivity troponin markers were normal and your EKG did not show any evidence of heart attack or heart stress. You did not improve with aspirin or nitroglycerin which typically help cardiac related chest pain. You received treatment for GERD i ncluding a Protonix IV dose, Pepcid, and a GI cocktail which immediately improved/resolved your pain. It is highly likely that your pain is coming from reflux and GERD. You are asymptomatic at time of discharge, and were comfortable with return home. Your blood pressure was elevated during admission, but was well controlled following the addition of amlodipine. Please take amlodipine 5 mg daily in the morning. If your blood pressure on your morning check is 120 or lower, you may hold this medication. Please discuss this medication change with your primary care doctor on follow-up. Due to your worsened GERD symptoms a follow-up with gastroenterology is being scheduled for you. You should receive a call, if you do not receive a call or need to change this appointment please discuss the referral with your primary care doctor at your follow-up appointment. A follow-up appointment with Dr. Self is being scheduled for you for within 1 week. If you develop any new or worsening symptoms including fever, chills, sweats, chest pain, chest pressure, difficulty breathing, uncontrolled nausea/vomiting, rash, wheezing, passing out or nearly passing out, bleeding, black/bloody bowel movements, or other new or concerning symptoms please call your primary care physician at [], or call 911 for re-evaluation in the emergency department if you are very concerned. Pending Studies at Discharge: Yes (echo results) Stand-Alone Forms: [facility], Smoking Cessation Medications and DC Order Prescriptions: New amlodipine 5 mg tablet 5 mg PO DAILY Qty: 30 0RF Continued lisinopril 40 mg tablet 40 mg PO QAM Qty: 90 3RF pravastatin 10 mg tablet 10 mg PO .COMPLEX Qty: 90 3RF Rx Instructions: 20MG:M,W,F 10Mg: T,TH,SAT,SUN. sucralfate [Carafate] 100 mg/mL suspension 10 ml PO QID Qty: 420 3RF omeprazole 40 mg capsule,delayed release(DR/EC) 40 mg PO BID 30 Days Qty: 60 2RF cholecalciferol (vitamin D3) 2,000 unit capsule 4,000 units PO QAM buspirone 10 mg tablet 10 mg PO BID Qty: 180 3RF tramadol 50 mg tablet 50 mg PO DAILY Qty: 30 0RF aspirin 81 mg Tablet,Delayed Release (Dr/Ec) 81 mg PO QAM coenzyme Q10 200 mg Capsule 200 mg PO QAM famotidine 20 mg tablet 20 mg PO BID Rx Instructions: TAKE 1 TABLET BY MOUTH TWICE A DAY cyanocobalamin (vitamin B-12) [Vitamin B-12] 1,000 mcg Tablet 1,000 mcg PO QAM Discharge Orders: Discharge Order (Routine); Ordered 01/02/23 Ordered By: Frederick Mercado Admission Data Admit Date/Time: 01/02/23 11:01 Attending Provider: Frederick Mercado Admit Provider: Frederick Mercado Primary Care Provider: Manish Self Other Providers: Frederick Mercado Coding Level of Care Code INP/OBS EV SAME DAY LV 2,70MIN Diagnoses Chest pain R07.9 GERD (gastroesophageal reflux disease) K21.9 Hypertension I10 Hyperlipidemia E78.5 Carotid artery plaque I65.29 Statin myopathy G72.0; T46.6X5A Prediabetes R73.03 Obstructive sleep apnea G47.33 Nonalcoholic fatty liver disease K76.0 Pulmonary emboli I26.99
--- NOTE | 2023-01-02 18:53 | XCELERA ---
[id number]
[2023-01-02] MEDS ORDERED: PANTOprazole 40 MG TAB PO SCH (21:00)
[2023-01-02] MEDS ORDERED: FAMOTIDINE 20 MG TAB PO SCH (21:00)
[2023-01-02] MEDS ORDERED: busPIRone 5 MG TAB PO SCH (21:00)
[2023-01-02] MEDS ORDERED: PRAVASTATIN SOD 10 MG TAB PO SCH (21:00)
--- NOTE | 2023-01-03 05:12 | Electrocardiogram Report ---
Test Reason : Blood Pressure : / mmHG Vent. Rate : 072 BPM Atrial Rate : 072 BPM P-R Int : 176 ms QRS Dur : 142 ms QT Int : 428 ms P-R-T Axes : 037 -21 007 degrees QTc Int : 468 ms Normal sinus rhythm Right bundle branch block Moderate voltage criteria for LVH, may be normal variant Abnormal ECG When compared with ECG of 28-MAR-2020 08:17, No significant change was found Confirmed by Javier Petty ([id number]) on 01/03/2023 5:12:30 AM Referred By: REFERRED SELF Confirmed By:Javier Petty
[2023-01-03] MEDS ORDERED: ASPIRIN 81 MG ECTAB PO SCH (09:00)
[2023-01-03] MEDS ORDERED: traMADol HCL 50 MG TABLET PO SCH (09:00)
[2023-01-03] MEDS ORDERED: PRAVASTATIN SOD 20 MG TAB PO SCH (21:00)
== END 2023-01-02 16:10 | disposition home or self-care (01) ==
LOC: ED 08:46 → EDINP 08:46 → SUATTDRO 11:01 → EDINP 14:50